=== PATIENT | male | born 1960 | race Caucasian/White ===

== ENCOUNTER 2020-09-29 12:51 | Outpatient (REF) | payer MEDICARE, OTHER, SELFPAY ==
[2020-09-29 14:53] LABS: Free T4 (Free Thyroxine) 0.92 ng/dL (0.71-1.85); Thyroid Stimulating Hormone 2.86 uIU/mL (0.32-4.0)
[2020-10-03 09:47] LABS: Amitriptyline, Urine NEGATIVE ng/mL (<100); Nortriptyline, Urine NEGATIVE ng/mL (<100)
[2020-10-03 20:18] LABS: Beta-2 Glycoprotein IgA <9 SAU (<=20); Beta-2 Glycoprotein IgG <9 SGU (<=20); Beta-2 Glycoprotein IgM <9 SMU (<=20)
== END 2020-09-29 12:52 | disposition home or self-care (01) ==
LOC: HO.LAB 12:51
PROVIDERS: PCP Internal Medicine; Visit Provider Internal Medicine
DX: E78.00 Pure hypercholesterolemia, unspecified (principal)
CPT/HCPCS: 80335; 84439; 84443; 86146

== ENCOUNTER 2020-10-02 12:29 | Outpatient (REF) | payer MEDICARE, OTHER, SELFPAY ==
[2020-10-06 21:13] LABS: Hydroindolacetic Acid,5- 12.2 mg/24 h (<=6.0); Total Volume 800 mL
== END 2020-10-02 12:30 | disposition home or self-care (01) ==
LOC: HO.LNP 12:29
PROVIDERS: Visit Provider Internal Medicine
DX: R35.0 Frequency of micturition (principal); N40.1 Benign prostatic hyperplasia with lower urinary tract symptoms
CPT/HCPCS: 81050; 83497

== ENCOUNTER → 2020-10-11 10:51 | Outpatient (BNVA) | payer MEDICARE, OTHER, SELFPAY | PROVIDERS: PCP Internal Medicine; Visit Provider Urology | DX: Z13.89 Encounter for screening for other disorder (principal) | CPT/HCPCS: Q3014 ==

== ENCOUNTER 2021-05-07 11:03 | Outpatient (REF) | payer MEDICARE, OTHER, SELFPAY ==
[2021-05-07 11:46] LABS: MANUAL DIFF FLAG NO
[2021-05-07 11:54] LABS: Basophils Absolute Auto 0.1 X10*3/uL (0.0-0.2); Basophils Percent Auto 0.5 % (0-2); Eosinophils Absolute Auto 0.1 X10*3/uL (0.0-0.4); Eosinophils Percent Auto 1.3 % (0-4); Hemoglobin 15.9 g/dl (14.0-18.0); Imm Gran Abs Auto 0.04 X10*3/uL (0.00-0.03); Imm Gran Pct Auto 0.4 % (0.0-0.4); Lymphocytes Absolute Auto 1.5 X10*3/uL (1.2-4.9); Lymphocytes Percent Auto 14.9 % (20-40); Mean Corpuscular HGB Conc 34.6 g/dl (31.0-36.0); Mean Corpuscular Hemoglobin 34.3 pg (27.0-33.0); Mean Corpuscular Volume 99.4 fL (80-98); Mean Platelet Volume 9.5 fL (9.4-12.4); Monocytes Absolute Auto 0.9 X10*3/uL (0.1-1.2); Monocytes Percent Auto 8.6 % (2-11); Neutrophils Absolute Auto 7.5 X10*3/uL (2.0-8.3); Neutrophils Percent Auto 74.3 % (45-73); Platelet Count 217 X10*3/uL (160-400); Red Blood Count 4.63 X10*6/uL (4.60-5.80); Red Cell Distribution Width 14.7 % (11.0-16.0); White Blood Count 10.1 X10*3/uL (4.8-10.8)
[2021-05-07 12:23] LABS: Alanine Aminotransferase 14 U/L (0-40); Albumin Level 4.1 g/dL (3.5-5.0); Alkaline Phosphatase 85 U/L (39-117); Anion Gap 12 (12-20); Aspartate Amino Transferase 17 U/L (5-37); Bilirubin Total 0.6 mg/dL (0.0-1.0); Blood Urea Nitrogen 9 mg/dL (9-16); Calcium 9.3 mg/dL (8.4-10.2); Carbon Dioxide 26 mmol/L (22-29); Chloride 109 mmol/L (96-108); Cholesterol 143 mg/dL; Estimated Glomerular Filt Rate > 60; Glucose Random 107 mg/dL (60-115); HDL Cholesterol 70 mg/dL; LDL Cholesterol Calculated 63 mg/dl; Sodium 142 mmol/L (135-145); Total Protein 6.7 g/dL (6.5-8.0); Triglycerides 54 mg/dL
[2021-05-07 12:44] LABS: Free T4 (Free Thyroxine) 0.87 ng/dL (0.71-1.85); Thyroid Stimulating Hormone 2.03 uIU/mL (0.32-4.0)
[2021-05-07 12:48] LABS: Folate 15.3 ng/mL (> or = 4.0); Vitamin B12 1791 pg/mL (200-900)
[2021-05-07 13:14] LABS: Prostate Specific Antigen Scr 3.53 ng/mL (<0.05-4.0)
== END 2021-05-07 11:04 | disposition home or self-care (01) ==
LOC: HO.LAB 11:03
PROVIDERS: PCP Internal Medicine; Visit Provider Internal Medicine
DX: Z12.5 Encounter for screening for malignant neoplasm of prostate (principal); I63.9 Cerebral infarction, unspecified; E78.00 Pure hypercholesterolemia, unspecified; N40.1 Benign prostatic hyperplasia with lower urinary tract symptoms; R35.0 Frequency of micturition
CPT/HCPCS: 36415; 80053; 80061; 82607; 82746; 84153; 84439; 84443; 85025

== ENCOUNTER 2021-06-29 11:27 | Outpatient (REF) | payer MEDICARE, OTHER, SELFPAY ==
--- NOTE | ~2021-06-29 | XR_ITS ---
EXAMINATION: XR CHEST CLINICAL INFORMATION: Shortness of breath COMPARISON: Chest radiographs 05/11/2020, 04/07/2015; CT chest noncontrast 11/30/2019. TECHNIQUE: 2 views of the chest were obtained. FINDINGS: There is patchy airspace opacity and atelectasis anterior lateral right upper lobe superimposed upon upper zone bullous emphysematous changes. There is also disc atelectasis and linear scarring posterior right upper lobe adjacent to oblique fissure. Left lung is clear. The costophrenic sulci are well-defined. No effusion. There is no pneumothorax or pneumomediastinum. The vascularity is normal. The heart is normal in size. The hilar and mediastinal contours are unremarkable. There is mild dextrocurvature thoracic spine. Surgical clips are present base left neck. XR/XR chest 2V IMPRESSION: Patchy airspace opacities and atelectasis anterior lateral right upper lobe and posterior right upper lobe superimposed upon chronic bullous emphysematous changes. No effusion.
== END 2021-06-29 11:28 | disposition home or self-care (01) ==
LOC: HO.HMGCX 11:27
PROVIDERS: PCP Internal Medicine; Visit Provider Hospitalist
DX: Z20.822 Contact with and (suspected) exposure to COVID-19 (principal); R06.02 Shortness of breath
CPT/HCPCS: 71046; U0003; U0005

== ENCOUNTER 2021-07-12 10:59 | Outpatient (REF) | payer MEDICARE, OTHER, SELFPAY ==
--- NOTE | ~2021-07-12 | XR_ITS ---
EXAMINATION: XR HIP, RIGHT CLINICAL INFORMATION: Pain in right hip COMPARISON: None TECHNIQUE: Two views of the right hip. FINDINGS: No acute visible fracture or dislocation. Post fracture deformity of the mid femoral diaphysis. Degenerative changes of the right femoral acetabular joint with joint space narrowing and periarticular osteophyte formation. Joint spaces and alignment are otherwise maintained. Soft tissues are unremarkable. Pelvic phleboliths are noted. XR/XR hip RT min 2V IMPRESSION: 1. No acute visible fracture or dislocation. 2. Post fracture deformity of the mid femoral diaphysis. 3. Degenerative changes of the right femoral acetabular joint.
== END 2021-07-12 11:00 | disposition home or self-care (01) ==
LOC: HO.XRAY 10:59
PROVIDERS: PCP Internal Medicine; Visit Provider Physician Assistant
DX: M25.551 Pain in right hip (principal)
CPT/HCPCS: 73502

== ENCOUNTER 2021-07-19 10:24 | Outpatient (REF) | payer MEDICARE, OTHER, SELFPAY ==
--- NOTE | ~2021-07-19 | XR_ITS ---
EXAMINATION: XR CHEST CLINICAL INFORMATION: Followup pneumonia, lingering cough. COMPARISON: 06/29/2021 TECHNIQUE: 2 views of the chest were obtained. FINDINGS: The right upper lung opacity appears to be decreasing but still remains a significant component. The left lung is comparable to previous. No infiltrate. Minimal left basilar atelectasis. The heart size is within normal limits. Comparable to previous. Hilar regions were also comparable. Mild fullness on the right may be reactive. XR/XR chest 2V IMPRESSION: Improving right upper lung opacity but still significant residual. Continued follow up is recommended. Recommend additional follow up in 2 weeks.
== END 2021-07-19 10:25 | disposition home or self-care (01) ==
LOC: HO.XRAY 10:24
PROVIDERS: PCP Internal Medicine; Visit Provider Physician Assistant
DX: R91.8 Other nonspecific abnormal finding of lung field (principal)
CPT/HCPCS: 71046

== ENCOUNTER 2021-08-09 05:13 | Outpatient (REF) | payer MEDICARE, OTHER, SELFPAY ==
--- NOTE | ~2021-08-09 | XR_ITS ---
EXAMINATION: XR PELVIS CLINICAL INFORMATION: Pain. COMPARISON: None TECHNIQUE: AP view of the pelvis. FINDINGS: There is normal symmetry of bilateral hip joints. No bony erosive changes. No acute fracture or lytic process seen. The soft tissues are normal. Unremarkable AP pelvis exam.. XR/XR pelvis 1-2V IMPRESSION: Unremarkable AP pelvis exam.
== END 2021-08-09 05:14 | disposition home or self-care (01) ==
LOC: HO.HOSX 05:13
PROVIDERS: Visit Provider Physician Assistant
DX: S39.012A Strain of muscle, fascia and tendon of lower back, initial encounter (principal)
CPT/HCPCS: 72170; 99212

== ENCOUNTER 2021-09-20 11:57 | Outpatient (REF) | payer MEDICARE, OTHER, SELFPAY ==
--- NOTE | ~2021-09-20 | XR_ITS ---
EXAMINATION: XR CHEST CLINICAL INFORMATION: Other nonspecific abnormal finding of lung field COMPARISON: Previous chest x-rays most recent June [address] most recent November 2019 TECHNIQUE: 2 views of the chest were obtained. FINDINGS: The cardiac and mediastinal contours are stable. There is interval decrease in size and density of the parenchymal opacity seen in the right upper lobe on June 2021 exams. On the lateral view there is linear chronic scarring or subsegmental atelectasis in the region of posterior segment of the right upper lobe or superior segment of the right lower lobe. This appears unchanged. The left lung is clear. There is no pleural effusion or pneumothorax. There are surgical clips in the left lower neck. Bony structures are unremarkable. XR/XR chest 2V IMPRESSION: Interval decrease in size and density of the parenchymal opacity in the right upper lobe compared to June 2021 chest x-rays. Residual chronic scarring or subsegmental atelectasis in the superior segment right lower lobe/posterior segment right upper lobe seen on the lateral view that is unchanged.
== END 2021-09-20 11:58 | disposition home or self-care (01) ==
LOC: HO.XRAY 11:57
PROVIDERS: PCP Internal Medicine; Visit Provider Physician Assistant
DX: R91.8 Other nonspecific abnormal finding of lung field (principal)
CPT/HCPCS: 71046

== ENCOUNTER 2021-11-26 11:31 | Outpatient (REF) | payer MEDICARE, OTHER, SELFPAY ==
--- NOTE | ~2021-11-26 | XR_ITS ---
EXAMINATION: XR RIBS, RIGHT CLINICAL INFORMATION: Status post fall about 12. Severe right-sided pain. COMPARISON: Chest x-ray 10-09. TECHNIQUE: 3 views of the right ribs were obtained. FINDINGS: There is severe emphysematous changes especially there is a large bullous disease in the right upper lobe and thick scarring in the right upper midlung region with mild loss of right lung volume similar to previous study. The left lung is expanded and clear. The heart size and pulmonary vascularity is normal. There are surgical lat[place] in the left neck from previous intervention. Multiple views of right ribs reveal nondisplaced fracture right lateral ninth and 10th rib with callus formation likely nonacute or healing fracture. XR/XR ribs RT min 3V w CXR1V IMPRESSION: Nonacute healing fracture right lateral 9th and 10th ribs where marker has been placed. Emphysematous lungs with large bullous changes in right upper lobe with thick parenchymal scarring and right midlung and loss of right lung volume similar to previous study 10/08/2021. Results were discussed by phone with referring physician at 11:50 AM.
== END 2021-11-26 11:32 | disposition home or self-care (01) ==
LOC: HO.HMGCX 11:31
PROVIDERS: Visit Provider Internal Medicine
DX: S20.219A Contusion of unspecified front wall of thorax, initial encounter (principal)
CPT/HCPCS: 71101

== ENCOUNTER 2022-06-17 10:49 | Outpatient (REF) | payer MEDICARE, OTHER, SELFPAY ==
[2022-06-17 14:09] LABS: MANUAL DIFF FLAG NO
[2022-06-17 14:14] LABS: Basophils Absolute Auto 0.1 X10*3/uL (0.0-0.2); Basophils Percent Auto 0.6 % (0-2); Eosinophils Absolute Auto 0.2 X10*3/uL (0.0-0.4); Eosinophils Percent Auto 2.3 % (0-4); Hematocrit 48.2 % (42.0-52.0); Hemoglobin 16.7 g/dl (14.0-18.0); Imm Gran Abs Auto 0.02 X10*3/uL (0.00-0.03); Imm Gran Pct Auto 0.2 % (0.0-0.4); Lymphocytes Absolute Auto 1.7 X10*3/uL (1.2-4.9); Lymphocytes Percent Auto 17.3 % (20-40); Mean Corpuscular HGB Conc 34.6 g/dl (31.0-36.0); Mean Corpuscular Volume 98.2 fL (80.0-98.0); Mean Platelet Volume 10.4 fL (9.4-12.4); Monocytes Percent Auto 10.2 % (2-11); Neutrophils Absolute Auto 6.6 x10*3/uL (2.0-8.3); Neutrophils Percent Auto 69.4 % (45-73); Platelet Count 248 X10*3/uL (160-400); Red Blood Count 4.91 X10*6/uL (4.60-5.80); Red Cell Distribution Width 14.7 % (11.0-16.0); White Blood Count 9.5 X10*3/uL (4.8-10.8)
[2022-06-17 14:34] LABS: Alanine Aminotransferase 19 U/L (0-40); Albumin Level 4.2 g/dL (3.5-5.0); Alkaline Phosphatase 92 U/L (39-117); Anion Gap 16 (12-20); Aspartate Amino Transferase 15 U/L (5-37); Bilirubin Total 0.7 mg/dL (0.0-1.0); Blood Urea Nitrogen 8 mg/dL (9-16); Calcium 9.4 mg/dL (8.4-10.2); Carbon Dioxide 26 mmol/L (22-29); Chloride 109 mmol/L (96-108); Cholesterol 145 mg/dL; Estimated Glomerular Filt Rate > 60; Glucose Random 111 mg/dL (60-115); HDL Cholesterol 63 mg/dL; LDL Cholesterol Calculated 70 mg/dl; Potassium 4.7 mmol/L (3.3-5.1); Sodium 146 mmol/L (135-145); Total Protein 6.9 g/dL (6.5-8.0); Triglycerides 64 mg/dL
[2022-06-17 14:47] LABS: Free T4 (Free Thyroxine) 1.05 ng/dL (0.71-1.85); Prostate Specific Antigen Scr 2.86 ng/mL (<0.05-4.0); Thyroid Stimulating Hormone 2.58 uIU/mL (0.32-4.0)
[2022-06-17 15:15] LABS: Folate 13.9 ng/mL (> or = 4.0); Vitamin B12 350 pg/mL (200-900)
== END 2022-06-17 10:50 | disposition home or self-care (01) ==
LOC: HO.HMGCLDS 10:49
PROVIDERS: PCP Internal Medicine; Visit Provider Internal Medicine
DX: Z12.5 Encounter for screening for malignant neoplasm of prostate (principal); E78.00 Pure hypercholesterolemia, unspecified
CPT/HCPCS: 36415; 80053; 80061; 82607; 82746; 84153; 84439; 84443; 85025

== ENCOUNTER 2022-06-21 13:02 | Outpatient (REF) | payer MEDICARE, OTHER, SELFPAY ==
--- NOTE | ~2022-06-21 | XR_ITS ---
EXAMINATION: XR KNEES, BILATERAL XR KNEE, LEFT CLINICAL INFORMATION: Painful right knee, pain left knee. COMPARISON: X-rays of the knees June 2018 and left knee May 2018. TECHNIQUE: Upright AP view of both knees. Lateral and patella view of left knee. FINDINGS: Left Knee: There is chondrocalcinosis. Bones joints and soft tissues otherwise normal without effusion. Right Knee - limited AP upright: Right total knee arthroplasty with components in usual position without surrounding lucency or fracture. XR/XR knee standing BI IMPRESSION: LEFT KNEE: Chondrocalcinosis unchanged. RIGHT KNEE: Right total knee arthroplasty without complication by x-ray.
--- NOTE | ~2022-06-21 | XR_ITS ---
EXAMINATION: XR KNEES, BILATERAL XR KNEE, LEFT CLINICAL INFORMATION: Painful right knee, pain left knee. COMPARISON: X-rays of the knees June 2018 and left knee May 2018. TECHNIQUE: Upright AP view of both knees. Lateral and patella view of left knee. FINDINGS: Left Knee: There is chondrocalcinosis. Bones joints and soft tissues otherwise normal without effusion. Right Knee - limited AP upright: Right total knee arthroplasty with components in usual position without surrounding lucency or fracture. XR/XR knee LT 2V IMPRESSION: LEFT KNEE: Chondrocalcinosis unchanged. RIGHT KNEE: Right total knee arthroplasty without complication by x-ray.
== END 2022-06-21 13:03 | disposition home or self-care (01) ==
LOC: HO.HOSX 13:02
PROVIDERS: Visit Provider Physician Assistant
DX: M17.12 Unilateral primary osteoarthritis, left knee (principal)
CPT/HCPCS: 20610; 73560; 73565; 99212; J1040

== ENCOUNTER 2022-09-09 13:21 | Outpatient (REF) | payer MEDICARE, SELFPAY ==
--- NOTE | ~2022-09-09 | XR_ITS ---
EXAMINATION: RIGHT WRIST WITH SCAPHOID CLINICAL INFORMATION: Pain in wrist. COMPARISON: None TECHNIQUE: 4 views. FINDINGS: There is no visible acute fracture, dislocation or subluxation. The joint spaces are maintained normal. There is calcification of triangular fibrocartilage as well as calcification of the dorsal capsule. There is mild dorsal soft tissue swelling. Focal lucencies are seen along the scaphoid and capitate bone and likely osteopenia. XR/XR wrist RT w scaphoid IMPRESSION: 1. Chondrocalcinosis of triangular fibrocartilage and dorsal capsule. There is mild dorsal soft tissue swelling. 2. No visible acute fracture or dislocation seen. 3. Focal lucencies along the scaphoid and capitate bone likely osteopenia.
== END 2022-09-09 13:22 | disposition home or self-care (01) ==
LOC: HO.HMGCX 13:21
PROVIDERS: PCP Internal Medicine; Visit Provider Nurse Practitioner Family
DX: M25.531 Pain in right wrist (principal)
CPT/HCPCS: 73110

== ENCOUNTER 2022-11-21 15:46 | Outpatient (REF) | payer MEDICARE, MEDICAID, SELFPAY ==
--- NOTE | ~2022-11-21 | XR_ITS ---
EXAMINATION: XR RIBS, LEFT CLINICAL INFORMATION: Multiple fractures COMPARISON: Prior study 09/20/2021 TECHNIQUE: Chest frontal, 3 oblique views left rib series. FINDINGS: RIBS: There is subtle cortical irregularity in the lateral aspect of the left seventh rib suggesting an undisplaced fracture indeterminant age. LUNGS AND JAIR: There is no pneumothorax. There is a platelike atelectasis projecting over the right middle lung zone, this is chronic or recurrent. No pleural effusion. PLEURA: Normal. Costophrenic angles are sharp, no pneumothorax. HEART: The heart is normal in size. MEDIASTINUM: The mediastinum is within normal limits.. XR/XR ribs LT min 3V w CXR1V IMPRESSION: * Nondisplaced fracture of the lateral aspect of the left seventh rib indeterminant age. Please correlate with area of tenderness. * Platelike atelectasis projecting over the right middle lung zone, this is chronic or recurrent. * No pneumothorax.
== END 2022-11-21 15:47 | disposition home or self-care (01) ==
LOC: HO.HMGCX 15:46
PROVIDERS: PCP Internal Medicine; Visit Provider Nurse Practitioner Family
DX: S22.42XA Multiple fractures of ribs, left side, initial encounter for closed fracture (principal)
CPT/HCPCS: 71101

== ENCOUNTER 2022-11-21 16:52 | Emergency (ER) | payer MEDICARE, MEDICAID, SELFPAY ==
--- NOTE | 2022-11-21 | ECG_ITS ---
Test Reason : FALL Blood Pressure : / mmHG Vent. Rate : 088 BPM Atrial Rate : 088 BPM P-R Int : 154 ms QRS Dur : 082 ms QT Int : 384 ms P-R-T Axes : 060 009 049 degrees QTc Int : 464 ms Normal sinus rhythm Normal ECG When compared with ECG of 21-NOV-2022 17:15, Questionable change in QRS axis Criteria for Inferior infarct are no longer Present T wave inversion no longer evident in Lateral leads Referred By: Hannah Booth Electronically Signed By:SHREE AMADOR MD
--- NOTE | 2022-11-21 | ECG_ITS ---
Test Reason : FALL Blood Pressure : / mmHG Vent. Rate : 085 BPM Atrial Rate : 085 BPM P-R Int : 156 ms QRS Dur : 080 ms QT Int : 376 ms P-R-T Axes : 114 186 146 degrees QTc Int : 447 ms Suspect limb lead reversal, interpretation assumes no reversal Normal sinus rhythm Lateral infarct , age undetermined Inferior infarct , age undetermined Abnormal ECG When compared with ECG of 11-MAY-2020 11:35, Significant changes have occurred Referred By: Generic ED Physician Electronically Signed By:Vince Chaidez
--- NOTE | ~2022-11-21 | XR_ITS ---
EXAMINATION: XR CHEST CLINICAL INFORMATION: Evaluate for rib fracture. COMPARISON: Chest radiograph 11/21/2022 at 3:56 PM and 11/26/2021. TECHNIQUE: Frontal view of the chest was obtained. FINDINGS: Stable appearance of the cardiomediastinal silhouette. Unchanged platelike and irregular opacities in the right upper/mid lung and left lower lung. No new focal airspace opacity. No pleural effusion or pneumothorax. Redemonstration of left lower cervical surgical clips per Chronic rib fracture in the right ninth rib, stable since 2021. Age indeterminate left seventh rib fracture is better seen on radiograph from earlier today. XR/XR chest 1V IMPRESSION: 1. Age-indeterminate left seventh rib fracture is better seen on radiograph from earlier today. 2. Chronic right ninth rib fracture. 3. No acute cardiopulmonary findings.
[2022-11-21 16:54] VITALS: BP 94/64; PULSE 93; RESP 18; TEMP 36.7; O2SAT 97; BMI 31.9
[2022-11-21 17:33] LABS: MANUAL DIFF FLAG NO
[2022-11-21 17:34] LABS: Basophils Absolute Auto 0.1 X10*3/uL (0.0-0.2); Basophils Percent Auto 0.7 % (0-2); Eosinophils Absolute Auto 0.2 X10*3/uL (0.0-0.4); Eosinophils Percent Auto 1.7 % (0-4); Hematocrit 44.3 % (42.0-52.0); Hemoglobin 15.6 g/dl (14.0-18.0); Imm Gran Abs Auto 0.02 X10*3/uL (0.00-0.03); Imm Gran Pct Auto 0.2 % (0.0-0.4); Lymphocytes Absolute Auto 1.7 X10*3/uL (1.2-4.9); Lymphocytes Percent Auto 19.4 % (20-40); Mean Corpuscular HGB Conc 35.2 g/dl (31.0-36.0); Mean Corpuscular Hemoglobin 34.3 pg (27.0-33.0); Mean Corpuscular Volume 97.4 fL (80.0-98.0); Mean Platelet Volume 9.4 fL (9.4-12.4); Monocytes Absolute Auto 0.8 X10*3/uL (0.1-1.2); Monocytes Percent Auto 9.2 % (2-11); Neutrophils Absolute Auto 6.1 x10*3/uL (2.0-8.3); Neutrophils Percent Auto 68.8 % (45-73); Platelet Count 201 X10*3/uL (160-400); Red Blood Count 4.55 X10*6/uL (4.60-5.80); Red Cell Distribution Width 14.3 % (11.0-16.0); White Blood Count 8.8 X10*3/uL (4.8-10.8)
[2022-11-21 17:46] LABS: Alanine Aminotransferase 12 U/L (0-40); Albumin Level 3.7 g/dL (3.5-5.0); Alkaline Phosphatase 95 U/L (39-117); Anion Gap 15 (12-20); Aspartate Amino Transferase 10 U/L (5-37); Bilirubin Total 0.5 mg/dL (0.0-1.0); Blood Urea Nitrogen 9 mg/dL (9-16); Calcium 8.6 mg/dL (8.4-10.2); Carbon Dioxide 22 mmol/L (22-29); Chloride 109 mmol/L (96-108); Creatinine Clr Calc Pharmacy 107.1; Estimated Glomerular Filt Rate > 60; Glucose Fasting 148 mg/dL (60-99); Potassium 4.1 mmol/L (3.3-5.1); Sodium 142 mmol/L (135-145); Total Protein 5.8 g/dL (6.5-8.0)
--- NOTE | 2022-11-21 21:39 | ED.GENADULT ---
HPI - General Adult General Chief complaint: Abdominal Pain Stated complaint: rib pain, ?internal bleeding sent form urgent care Time Seen by Provider: 11/21/22 21:14 Source: patient Mode of arrival: ambulatory History of Present Illness HPI narrative: 62-year-old male who denies consuming alcohol the time of his fall 2 weeks ago when he fell in the tub without head strike or loss of consciousness. Related Data Home Medications Medication Instructions Recorded Confirmed aspirin 81 mg tablet,delayed 81 mg PO DAILY 09/21/20 11/21/22 release (Adult Aspirin Regimen) gabapentin 300 mg capsule 300 mg PO TID 09/21/20 11/21/22 apixaban 2.5 mg tablet (Eliquis) 2.5 mg PO BID 09/09/22 11/21/22 Previous Rx's Medication Instructions Recorded shower chair #1 ea 04/25/21 fluticasone 250 mcg-salmeterol 50 1 inh inhalation BID 30 days #60 ea 12/20/21 mcg/dose blistr powdr for inhalation (Wixela Inhub) nicotine (polacrilex) 2 mg gum 2 mg buccal Q4-8H PRN nicotine 01/07/22 cravings #50 ea miscellaneous medical supply 1 ea miscellaneous QID PRN 01/10/22 shortness of breath or wheezing 12 months #1 ea omeprazole 20 mg capsule,delayed 20 mg PO BID 90 days #180 caps 04/19/22 release tamsulosin 0.4 mg capsule 0.4 mg PO BEDTIME 90 days #90 caps 05/17/22 miconazole nitrate 2 % topical 1 appl topical DAILY #71 grams 06/12/22 powder (Zeasorb AF) nystatin 100,000 unit/gram topical 1 appl topical TID 30 days #30 06/12/22 ointment grams atorvastatin 80 mg tablet 80 mg PO BEDTIME 90 days #90 tabs 07/12/22 fluticasone propionate 50 2 spray intranasal DAILY #3 ea 10/01/22 mcg/actuation nasal spray,suspension alprazolam 0.25 mg tablet 0.25 mg PO BEDTIME PRN anxiety #20 10/25/22 tabs albuterol sulfate 2.5 mg/3 mL 2.5 mg (3 mL) inhalation QID PRN 11/12/22 (0.083 %) solution for nebulization shortness of breath or wheezing 30 days #180 mL albuterol sulfate 90 mcg/actuation 2 puff PO Q6H PRN bronchospasm 11/12/22 aerosol inhaler #8.5 grams Allergies Allergy/AdvReac Type Severity Reaction Status Date / Time azithromycin [AZITHROMYCIN] Allergy Unknown HIVES Verified 11/21/22 16:54 clarithromycin [From Biaxin] Allergy Unknown Unknown Verified 11/21/22 16:54 dextromethorphan Allergy Unknown HIVES Verified 11/21/22 16:54 [From NYQUIL] divalproex sodium [Depakote] Allergy Unknown Unknown Verified 11/21/22 16:54 doxycycline Allergy Unknown unknown Verified 11/21/22 16:54 doxylamine [From NYQUIL] Allergy Unknown HIVES Verified 11/21/22 16:54 morphine [MORPHINE] Allergy Unknown TACHYCARDIA Verified 11/21/22 16:54 pseudoephedrine Allergy Unknown HIVES Verified 11/21/22 16:54 [From DAYQUIL SINUS PRESSURE/PAIN] rosuvastatin Allergy Unknown sob Verified 11/21/22 16:54 Review of Systems Review of Systems: Pertinent positives and negatives as stated in HPI COUNTS INCLUDE 234 BEDS AT THE [facility] Past Medical History Source: nursing notes reviewed Medical History Annual physical exam Annual physical exam Anxiety Back strain BPH (benign prostatic hyperplasia) Brain aneurysm Carpal tunnel syndrome Contusion of chest COPD (chronic obstructive pulmonary disease) CVA (cerebral vascular accident) Femoral fracture GERD (gastroesophageal reflux disease) Hypercholesterolemia Impaired glucose tolerance Insomnia Left subclavian artery occlusion Osteoarthritis of right hip Overweight (BMI 25.0-29.9) Pes anserinus bursitis of left knee Polysubstance abuse Pulmonary nodule Right hip pain Right middle lobe pulmonary infiltrate Seizure disorder Sinus congestion SOB (shortness of breath) Tinea cruris Upper respiratory tract infection Urgency of micturition Vitamin B12 deficiency Vitamin D deficiency Vocal cord polyp Surgical History History of knee replacement procedure of right knee History of orthopedic surgery History of surgery Stenosis of subclavian bypass Family History Family History Father CAD (coronary artery disease) Kidney malignancy Mother Myocardial infarction Social History Social History Housing: Other Housing Other:: Trailer Alcohol intake: current Alcohol intake frequency: 0-2 drinks per day Alcohol type: beer Patient Tobacco Use Status: Current everyday Tobacco user Tobacco use type: Cigarette Cigarettes Per Day: 6 e-Cigarette/Vaping Use: Never Used Second Hand Smoke Exposure: No Advance Directives: No Advance Directives Information Provided: No service: No Current occupational status: unemployed Cognitive needs: No Hearing needs: No Vision needs: Yes Physical Exam ED Vital Signs: Vital Signs - 24 hr 11/21/22 16:54 Temperature 98.1 F Pulse Rate 93 Respiratory Rate 18 Blood Pressure 94/64 Pulse Oximetry 97 Oxygen Delivery Method Room Air BMI result Body Mass Index 31.9 VITAL SIGNS: Reviewed. GENERAL: Well developed, well nourished, in no acute distress. HEAD: Normocephalic/atraumatic EYES: PERRLA, EOMI EARS: Ext canals without abnormality OROPHARYNX: no oral lesions noted, posterior pharynx clear LUNGS: Normal breath sounds. No adventitious sounds or accessory muscle use. SpO2<97>; CHEST WALL: Patient with point tenderness at the mid axillary 7th rib area without crepitus noted CARDIOVASCULAR: Regular rate and rhythm without noted murmurs, no JVD or lower extremity edema. ABDOMEN: Soft, non-tender, non-distended with bowel sounds. MUSCULOSKELETAL: No tenderness, deformities, or effusions noted on gross inspection. EXTREMITIES: No cyanosis, clubbing or edema. SKIN: Inspection of the skin reveals no rashes NEUROLOGIC: Alert and oriented x 4. Strength and sensation to light touch were grossly intact x 4, no facial asymmetry, no pronator drift. Medical Decision Making Medical Decision Making [facility] Narrative: 62-year-old male with history and clinical presentation most consistent after review of all investigations of a a left 7th rib fracture, he is not tachycardic nor is he tachypneic and he is oxygenating 97% on room air. Patient was provided with combination analgesics, lidocaine patch will be discharged home in stable condition with instructions to follow-up with his primary care provider. Patient was also started on incentive spirometry and given training at the bedside. Differential Diagnosis Differential Diagnoses: The differential diagnosis associated with the presentation includes Please see the discussion above Lab Data [facility] Lab Attestation statement: I reviewed the patient's lab results. Please see the discussion above 11/21/22 17:28 02/02/23 17:28 Labs: Lab Results 11/21/22 11/21/22 Range/Units 17:28 17:28 WBC 8.8 (4.8-10.8) X10*3/uL RBC 4.55 L (4.60-5.80) X10*6/uL Hgb 15.6 (14.0-18.0) g/dl Hct 44.3 (42.0-52.0) % MCV 97.4 (80.0-98.0) fL MCH 34.3 H (27.0-33.0) pg MCHC 35.2 (31.0-36.0) g/dl RDW 14.3 (11.0-16.0) % Plt Count 201 (160-400) X10*3/uL MPV 9.4 (9.4-12.4) fL Immature Gran % (Auto) 0.2 (0.0-0.4) % Neut % (Auto) 68.8 (45-73) % Lymph % (Auto) 19.4 L (20-40) % [place] % (Auto) 9.2 (2-11) % Eos % (Auto) 1.7 (0-4) % Baso % (Auto) 0.7 (0-2) % Lymph # (Auto) 1.7 (1.2-4.9) X10*3/uL [place] # (Auto) 0.8 (0.1-1.2) X10*3/uL Eos # (Auto) 0.2 (0.0-0.4) X10*3/uL Baso # (Auto) 0.1 (0.0-0.2) X10*3/uL Abs Immat Gran (auto) 0.02 (0.00-0.03) X10*3/uL Absolute Neuts (auto) 6.1 (2.0-8.3) x10*3/uL Absolute Nucleated RBC 0.000 (0.0-0.012) X10*3/uL Nucleated RBC % (auto) 0.0 (0.0-0.2) /100WBC Sodium 142 (135-145) mmol/L Potassium 4.1 (3.3-5.1) mmol/L Chloride 109 H (96-108) mmol/L Carbon Dioxide 22 (22-29) mmol/L Anion Gap 15 (12-20) BUN 9 (9-16) mg/dL Creatinine 0.78 (0.5-1.4) mg/dL Estim Creat Clear Calc 107.1 Estimated GFR > 60 Fasting Glucose 148 H (60-99) mg/dL Calcium 8.6 D (8.4-10.2) mg/dL Total Bilirubin 0.5 (0.0-1.0) mg/dL AST 10 (5-37) U/L ALT 12 (0-40) U/L Alkaline Phosphatase 95 (39-117) U/L Total Protein 5.8 L (6.5-8.0) g/dL Albumin 3.7 (3.5-5.0) g/dL Radiology Impression Radiologist Impression: My interpretation is in agreement with radiology's impression of the imaging study. External Record Review External record reviewed: Outpatient record and Prior outpatient labs Chronic Conditions Patient?s care impacted by: Hypertension Discharge Plan Discharge Clinical Impression: Rib fracture Patient Disposition: Home, Self-Care Instructions: Rib Fracture (ED), How to Use an Incentive Spirometer (ED) Additional Instructions: Tylenol 1000mg, orally, every 6hrs as needed for pain. Do not exceed 4000 mg within 24 hours. Lidocaine patch, apply to area of maximal tenderness as directed on the outside packaging. Please use the incentive spirometer every 2-4 hours with at least 8-10 breaths Follow-up with your primary care provider by calling the office tomorrow morning. Return to the ER for worsening symptoms. Prescriptions: No Action (DME) shower chair See Rx Instructions .Route .MEDSUPPLY Qty: 1 0RF Rx Instructions: As directed fluticasone propion-salmeterol [Wixela Inhub] 250-50 mcg/dose blister with device 1 inh inhalation BID 30 Days Qty: 60 11RF nicotine (polacrilex) 2 mg gum 2 mg buccal Q4-8H PRN (Reason: nicotine cravings) Qty: 50 0RF miscellaneous medical supply Kit 1 ea miscellaneous QID PRN (Reason: shortness of breath or wheezing) 360 Days Qty: 1 2RF Rx Instructions: 1 kit for nebulizer, mouthpiece, tubing & filter for 12 months to use QID PRN for shortness of breath or wheezing omeprazole 20 mg capsule,delayed release(DR/EC) 20 mg PO BID 90 Days Qty: 180 3RF tamsulosin 0.4 mg capsule 0.4 mg PO BEDTIME 90 Days Qty: 90 3RF atorvastatin 80 mg tablet 80 mg PO BEDTIME 90 Days Qty: 90 2RF fluticasone propionate 50 mcg/actuation spray,suspension 2 spray intranasal DAILY Qty: 3 3RF Rx Instructions: administer into each nostril alprazolam 0.25 mg tablet 0.25 mg PO BEDTIME PRN (Reason: anxiety) Qty: 20 2RF albuterol sulfate 90 mcg/actuation HFA aerosol inhaler 2 puff PO Q6H PRN (Reason: bronchospasm) Qty: 8.5 0RF albuterol sulfate 2.5 mg /3 mL (0.083 %) solution for nebulization 2.5 mg inhalation QID PRN (Reason: shortness of breath or wheezing) 30 Days Qty: 180 1RF gabapentin 300 mg capsule 300 mg PO TID aspirin [Adult Aspirin Regimen] 81 mg tablet,delayed release (DR/EC) 81 mg PO DAILY nystatin 100,000 unit/gram ointment 1 appl topical TID 30 Days Qty: 30 0RF Zeasorb AF 2 % powder 1 appl topical DAILY Qty: 71 0RF Eliquis 2.5 mg tablet 2.5 mg PO BID Referrals: Po,Zuri Jenkins MD [Primary Care Provider] -
[2022-11-21] MEDS: Acetaminophen 325 MG TABLET 975 MG PO (21:59)
[2022-11-21] MEDS: Lidocaine 4 % Patch ADH..PATCH 1 PATCH TRANSDERMA (22:00)
== END 2022-11-21 22:05 | disposition home or self-care (01) ==
PROVIDERS: Emergency Provider Student in an Organized Health Care Education/Training Program; PCP Internal Medicine
DX: S22.43XA Multiple fractures of ribs, bilateral, initial encounter for closed fracture (principal); W18.2XXA Fall in (into) shower or empty bathtub, initial encounter; Z91.81 History of falling; Y93.E1 Activity, personal bathing and showering; Y92.031 Bathroom in apartment as the place of occurrence of the external cause; Y99.9 Unspecified external cause status
CPT/HCPCS: 36415; 71045; 80053; 85025; 93005; 94010; 99283

== ENCOUNTER 2023-01-28 12:13 | Outpatient (REF) | payer MEDICARE, MEDICAID, SELFPAY ==
--- NOTE | ~2023-01-28 | XR_ITS ---
EXAMINATION: XR KNEE, RIGHT CLINICAL INFORMATION: Pain. COMPARISON: Radiographs dated 06/21/2022. TECHNIQUE: AP and lateral views of the right knee. FINDINGS: Prosthetic components of the right total knee arthroplasty are appropriately aligned without periprosthetic fracture or lucency. No component migration. No joint effusion. XR/XR knee RT 2V IMPRESSION: Appropriate alignment of the right total knee arthroplasty without evidence of complications.
== END 2023-01-28 12:14 | disposition home or self-care (01) ==
LOC: HO.XRAY 12:13
PROVIDERS: PCP Internal Medicine; Visit Provider Internal Medicine
DX: M79.651 Pain in right thigh (principal)
CPT/HCPCS: 73560

== ENCOUNTER 2023-02-07 14:14 | Outpatient (REF) | payer MEDICARE, MEDICAID, SELFPAY ==
--- NOTE | ~2023-02-07 | XR_ITS ---
EXAMINATION: XR HIP, RIGHT CLINICAL INFORMATION: Pain in the right thigh COMPARISON: None available. TECHNIQUE: Two views of the right hip. FINDINGS: No fracture or dislocation. Mild narrowing of the joint space with sclerosis. The visualized right pelvis is intact. Partially visualized femoral diaphyseal healed fracture. XR/XR hip RT min 2V IMPRESSION: Mild degenerative change of the right hip.
== END 2023-02-07 14:15 | disposition home or self-care (01) ==
LOC: HO.XRAY 14:14
PROVIDERS: PCP Internal Medicine; Visit Provider Internal Medicine
DX: M79.651 Pain in right thigh (principal)
CPT/HCPCS: 73502

== ENCOUNTER 2023-02-24 11:00 | Outpatient (REF) | payer MEDICARE, MEDICAID, SELFPAY ==
--- NOTE | ~2023-02-24 | XR_ITS ---
EXAMINATION: RIGHT KNEE RADIOGRAPH CLINICAL INFORMATION: Pain COMPARISON: Right knee x-rays 01/28/2023 TECHNIQUE: Single patellar sunrise view of the right knee was obtained. FINDINGS: Prosthetic components appear well aligned on this single view. There is no gross patellar fracture. There are hypertrophic changes of the patella noted with a decreased patellofemoral joint space. XR/XR knee RT 1V IMPRESSION: Prosthetic components appear well aligned on this single view.
== END 2023-02-24 11:01 | disposition home or self-care (01) ==
LOC: HO.HOSX 11:00
PROVIDERS: PCP Internal Medicine; Visit Provider Physician Assistant
DX: S76.011A Strain of muscle, fascia and tendon of right hip, initial encounter (principal); M25.561 Pain in right knee
CPT/HCPCS: 73560; 99212

== ENCOUNTER 2023-03-20 14:00 | Outpatient (RCR) | payer MEDICARE, MEDICAID, SELFPAY ==
--- NOTE | 2023-02-21 13:52 | MHC.PT.EP ---
[facility] [place] Office [place] Office [place] Office [address] Laura Odell [address] [phone] F: [phone] F: [phone] F: [phone] F: [phone] Physical Therapy Plan of Care Date of Evaluation: Date of Surgery: n/a Diagnosis: pain in R thigh Assessment: Patient is a 62 year old male presenting to PT with complaints of pain in his R thigh. Pt reports onset of pain began about 11 weeks ago due to getting pulled by his dog who was on leash. He presents today with impairments in pain, R hip ROM, gait, strength. Pt's current occupation is disabled, with baseline physical activities including ambulating, ADLs, stair negotiation. 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 Clinical presentation today is most consistent with signs and sx associated with possible muscle strain and pt will benefit from skilled PT 2 week x 4 weeks to address the following problems and impairments noted upon evaluation: pain, R hip ROM, gait, strength. These problems limit the patient with the following functional activities: ambulating, ADLs, stair negotiation. The prescribed treatment plan of care is medically necessary. Co-morbidities of hx brain aneurysm, hx CVA, hx polysubstance abuse, seizure disorder, hx R knee replacement 8 years ago, shattered R femur twice, on blood thinners (eliquis) were identified and taken into considerations of plan of care. Pt was educated on HEP, role of PT, prognosis, POC. Frequency and Duration: The patient will be seen 2 x week x 4 weeks Short Term Goals: Pt will demonstrate R hip flexor strength at least 3 /5 in 2 weeks. Pt will demonstrate ability to ambulate with min to no antalgia with cane in 2 weeks. Pt will report improved pain to 5/10 or better in 2 weeks. 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 Pt will demonstrate ability to ambulate community distances in 4 weeks and no AD for return to PLOF. Pt will demonstrate ability to complete all ADLs with min to no limitation in 4 weeks for return to PLOF. Treatment Plan: Modalities to reduce pain, spasms and effusion. Manual therapy to restore motion and function. Therapeutic exercise to improve strength and flexibility. Neuromuscular re-education for posture and balance. Therapeutic activities to return to functional activities of daily living. Electronically signed by: Hanna Hannon, PT, DPT, ATC Please sign and return to therapist. Thank you for your referral.
--- NOTE | 2023-03-20 14:48 | MHC.PT.DC ---
[facility] [place] Office [place] Office [place] Office [address] Laura Odell [address] [phone] F: [phone] F: [phone] F: [phone] F: [phone] Physical Therapy Discharge Report Diagnosis: pain in R thigh Date of Surgery: n/a Date of Evaluation: 02/21/23 Date of Discharge: 03/20/23 Treatments to Date: 8 Cancellations to Date: 0 No Shows to Date: 0 Discharge Status: Independent with HEP Recommend MD Follow-up Discharge Summary: 03/20/2023: Pt continues to have pain. He has made some improvements with this since start of care but at this point is no longer appearing to make any significant progress. He admits he is doing things he probably shouldn't. He has made minimal progress towards his functional goals due to continued high pain levels. We have maximized benefits of PT at this time and therefore pt to be d/c. Advise him to continue with his HEP as it has provided some relief. If his pain continues recommend following up with MD. Pt in agreement with plan and d/c today. Electronically signed by: Hanna Hannon, PT, DPT, ATC Please sign and return to therapist. Thank you for your referral.
== END 2023-03-20 14:48 | disposition home or self-care (01) ==
LOC: HO.PTCHIC 14:00
PROVIDERS: PCP Internal Medicine; Visit Provider Internal Medicine
DX: M79.651 Pain in right thigh (principal)
CPT/HCPCS: 97110; 97162

== ENCOUNTER 2023-05-12 13:07 | Outpatient (AMB) | payer MEDICARE, MEDICAID, SELFPAY ==
--- NOTE | 2023-05-12 13:16 | MHC.OFFVIS ---
Intake Vital Signs 05/12/23 13:17 Height 5 ft 8 in Weight 193 lb BMI 29.3 Intake Visit Reasons: Newprob-RT hip pain-Looking to get an injection. Intake Note: Stas a 63 year old male who presents today for a follow up of right hip pain. Patient reports he tried PT but this made his pain worse as well as at home exercises. Requesting an injection. Constant pain that gets worse with walking. His pain will radiate down his leg. Finds some relief with pain medication and Tylenol. Allergies azithromycin [AZITHROMYCIN] Allergy (Unknown, Verified 04/25/23 13:55) HIVES clarithromycin [From Biaxin] Allergy (Unknown, Verified 04/25/23 13:55) Unknown dextromethorphan [From NYQUIL] Allergy (Unknown, Verified 04/25/23 13:55) HIVES divalproex sodium [Depakote] Allergy (Unknown, Verified 04/25/23 13:55) Unknown doxycycline Allergy (Unknown, Verified 04/25/23 13:55) unknown doxylamine [From NYQUIL] Allergy (Unknown, Verified 04/25/23 13:55) HIVES morphine [MORPHINE] Allergy (Unknown, Verified 04/25/23 13:55) TACHYCARDIA pseudoephedrine [From DAYQUIL SINUS PRESSURE/PAIN] Allergy (Unknown, Verified 04/25/23 13:55) HIVES rosuvastatin Allergy (Unknown, Verified 04/25/23 13:55) sob HPI Newprob-RT hip pain-Looking to get an injection. HPI Details 63-year-old male who presents to the office today for evaluation of right hip pain. He states he has pain in his right hip which radiates down to his leg. His pain is aggravated with ambulation. He had undergone physical therapy and home exercises in the past which aggravated his pain. He finds mild relief with his pain medication and Tylenol. He was seen by Dr. Feldman who referred him to our office to get an injection in his right hip. [facility] Medical History Annual physical exam Annual physical exam Anxiety Back strain BPH (benign prostatic hyperplasia) Brain aneurysm Carpal tunnel syndrome Contusion of chest COPD (chronic obstructive pulmonary disease) CVA (cerebral vascular accident) Femoral fracture GERD (gastroesophageal reflux disease) Hypercholesterolemia Impaired glucose tolerance Insomnia Left subclavian artery occlusion Osteoarthritis of right hip Overweight (BMI 25.0-29.9) Pes anserinus bursitis of left knee Polysubstance abuse Pulmonary nodule Rib fractures Right hip pain Right middle lobe pulmonary infiltrate Seizure disorder Sinus congestion SOB (shortness of breath) Tinea cruris Upper respiratory tract infection Urgency of micturition Vitamin B12 deficiency Vitamin D deficiency Vocal cord polyp Surgical History History of knee replacement procedure of right knee History of orthopedic surgery History of surgery Stenosis of subclavian bypass Family History Father CAD (coronary artery disease) Kidney malignancy Mother Myocardial infarction Brother Prostate cancer Social History Housing: Other Housing Other:: Trailer Alcohol intake: current Alcohol intake frequency: 0-2 drinks per day Alcohol type: beer Patient Tobacco Use Status: Current everyday Tobacco user Tobacco use type: Cigarette Cigarettes Per Day: 6 Years Smoked: not ready to stop 12/2022 e-Cigarette/Vaping Use: Never Used Second Hand Smoke Exposure: No service: No Current occupational status: unemployed Cognitive needs: No Hearing needs: No Vision needs: Yes Review of Systems Const All systems reviewed & are unremarkable except as noted in HPI and below Physical Exam Vital Signs: BMI result Body Mass Index 29.3 Extrem Other: Right hip: Normal to inspection. No pain with ROM of the hip. Pain along the greater trochanter. No pain with hip flexion or abduction. Negative tenderness along the SI joint, Negative SLR. NVI. Office Procedures Joint Injection/Drain Joint Injection/Drain Details: right hip bursa Prep: site was prepped using aseptic technique, ethochloride spray was applied and injection warnings given Injected: 80 mg of, DepoMedrol, with 8 mL of and 1% plain lidocaine Procedure: The patient tolerated the procedure well and there was some relief with the local anesthesia Coding 12843 - Glenohumeral/Tronchanteric Bursa/Intraarticular Procedure code (CPT) selection complete Results Reviewed Results Reviewed: 05/12/23 13:28 Lidocaine HCl 2 % MPF [Xylocaine 2 % MPF] 5 ml .ROUTE .STK-MED ONE methylPREDNISolone acetate [DEPO-MedroL] 80 mg .ROUTE .STK-MED ONE Assessment & Plan Assessment & Plan (1) Trochanteric bursitis, right hip: Code(s): M70.61 - Trochanteric bursitis, right hip Plan We discussed options today which include steroid injection. They did consent to move forward with the right hip injection, which was tolerated well. I recommended rest, ice and elevation and OTC anti-inflammatories PRN for discomfort. If symptoms persist or worsens over the next 6-8 weeks, patient will contact the office, otherwise follow-up as needed. Patient Instructions: Scribed for Nicole Simmons PA-C, by Dwayne Sherman medical lab technologist, on 05/12/2023 at 1:30 PM EST. Nicole Schaefer PA-C, have personally reviewed and agree with the information entered by the scribe. Coding Level of Care Code Est Pt Level 3 (96897) Diagnoses Trochanteric bursitis, right hip M70.61 CPT Codes Coding - Joint 7: 46076 - Glenohumeral/Tronchanteric Bursa/Intraarticular ([id number])
[2023-05-12 13:17] VITALS: BMI 29.3
== END 2023-05-12 13:39 | disposition home or self-care (01) ==
PROVIDERS: PCP Internal Medicine; Visit Provider Physician Assistant
DX: M70.61 Trochanteric bursitis, right hip (principal)
CPT/HCPCS: 20610; 99213

== ENCOUNTER → 2023-05-12 13:07 | Outpatient (BNVA) | payer MEDICARE, MEDICAID, SELFPAY | PROVIDERS: PCP Internal Medicine; Visit Provider Physician Assistant | DX: M70.61 Trochanteric bursitis, right hip (principal) | CPT/HCPCS: 20610; 99212; J1040 ==

== ENCOUNTER 2023-05-23 12:32 | Outpatient (AMB) | payer MEDICARE, MEDICAID, SELFPAY ==
[2023-05-23 12:42] VITALS: BP 136/70; PULSE 78; O2SAT 97; BMI 28.6
--- NOTE | 2023-05-23 12:42 | MHC.PC.OV ---
Vital Signs 05/23/23 12:42 Height 5 ft 8 in Weight 188 lb BMI 28.6 BP 136/70 Blood Pressure Location Lt brachial Position Sitting Pulse 78 Pulse Source Pulse Oximeter Pulse Oximetry (%) 97 Oxygen Delivery Method Room Air Intake Visit Reasons: COPD Allergies azithromycin [AZITHROMYCIN] Allergy (Unknown, Verified 05/23/23 12:43) HIVES clarithromycin [From Biaxin] Allergy (Unknown, Verified 05/23/23 12:43) Unknown dextromethorphan [From NYQUIL] Allergy (Unknown, Verified 05/23/23 12:43) HIVES divalproex sodium [Depakote] Allergy (Unknown, Verified 05/23/23 12:43) Unknown doxycycline Allergy (Unknown, Verified 05/23/23 12:43) unknown doxylamine [From NYQUIL] Allergy (Unknown, Verified 05/23/23 12:43) HIVES morphine [MORPHINE] Allergy (Unknown, Verified 05/23/23 12:43) TACHYCARDIA pseudoephedrine [From DAYQUIL SINUS PRESSURE/PAIN] Allergy (Unknown, Verified 05/23/23 12:43) HIVES rosuvastatin Allergy (Unknown, Verified 05/23/23 12:43) sob Medication List - Last Reconciled 05/23/23 by Zuri Feldman MD [shower chair As directed] albuterol sulfate 2.5 mg (3 mL) inhalation QID PRN 30 days albuterol sulfate 90 mcg/actuation 2 puffs PO Q6H PRN NS alprazolam 0.25 mg PO BEDTIME PRN apixaban (Eliquis) 2.5 mg PO BID atorvastatin 80 mg PO BEDTIME 90 days diclofenac sodium 1% (Arthritis Pain (diclofenac)) 2 grams topical QID PRN fluticasone propion-salmeterol 250-50 mcg/dose (Wixela Inhub) 1 inh inhalation BID 30 days fluticasone propionate 50 mcg/actuation 2 sprays intranasal DAILY gabapentin 300 mg PO TID hydrocortisone 2.5% (Proctosol HC) 1 appl SC BID-QID PRN lidocaine 4% 1 patch topical DAILY PRN miconazole nitrate 2% (Zeasorb AF) 1 appl topical DAILY miscellaneous medical supply 1 ea miscellaneous QID PRN 12 months nicotine (polacrilex) 2 mg buccal Q4-8H PRN nystatin 1 appl topical TID 30 days omeprazole 20 mg PO BID 90 days oxycodone-acetaminophen 5-325 mg (Percocet) 1 tab PO Q4H PRN tamsulosin 0.4 mg PO BEDTIME 90 days tizanidine 2 mg PO Q8H PRN varenicline (Chantix Continuing Month Box) 1 mg PO BID [WALKER As directed] Tobacco use date assessed: 02/14/23 Fall risk assessment: No Falls in past year Last assessed Fall Risk: 05/23/23 Dental Screening Dental Screen Date: 05/23/23 Did you have a dental visit in the last 12 months?: Yes Did you have a dental problem in the last 6 months where you did not have access to dental care?: No Was dental information given to patient?: Patient has dentist HPI COPD HPI Details 63-year-old overweight male seen April 2023 for a right hip pain in which CT scan was ordered patient did see Ortho in 05/12/2023 patient got a right hip injection. Review of the notes had colonoscopy in 2017 and had tubular adenoma. Patient has a history of CVA with left subclavian artery occlusion having a bypass in 2016 BPH, impaired glucose tolerance, hypercholesterolemia GERD COPD in gel as anxiety disorder. Patient comes in for follow-up. complains of nipple pain Right side only. also noted R elbow mass - no changes PFSH Medical History Annual physical exam Annual physical exam Anxiety Back strain BPH (benign prostatic hyperplasia) Brain aneurysm Carpal tunnel syndrome Contusion of chest COPD (chronic obstructive pulmonary disease) CVA (cerebral vascular accident) Femoral fracture GERD (gastroesophageal reflux disease) Hypercholesterolemia Impaired glucose tolerance Insomnia Left subclavian artery occlusion Osteoarthritis of right hip Overweight (BMI 25.0-29.9) Pes anserinus bursitis of left knee Polysubstance abuse Pulmonary nodule Rib fractures Right hip pain Right middle lobe pulmonary infiltrate Seizure disorder Sinus congestion SOB (shortness of breath) Tinea cruris Upper respiratory tract infection Urgency of micturition Vitamin B12 deficiency Vitamin D deficiency Vocal cord polyp Surgical History History of knee replacement procedure of right knee History of orthopedic surgery History of surgery Stenosis of subclavian bypass Family History Father CAD (coronary artery disease) Kidney malignancy Mother Myocardial infarction Brother Prostate cancer Social History Housing: Other Housing Other:: Trailer Alcohol intake: current Alcohol intake frequency: 0-2 drinks per day Alcohol type: beer Patient Tobacco Use Status: Current everyday Tobacco user Tobacco use type: Cigarette Cigarettes Per Day: 6 Years Smoked: not ready to stop 12/2022 e-Cigarette/Vaping Use: Never Used Second Hand Smoke Exposure: No service: No Current occupational status: unemployed Cognitive needs: No Hearing needs: No Vision needs: Yes Questionnaire PHQ-9 Over the last 2 weeks, how often have you been bothered by any of the following problems? 1. Little interest or pleasure in doing things: not at all 2. Feeling down, depressed, or hopeless: not at all 3. Trouble falling or staying asleep, or sleeping too much: not at all 4. Feeling tired or having little energy: not at all 5. Poor appetite or overeating: not at all 6. Feeling bad about yourself - or that you are a failure or have let yourself or your family down: not at all 7. Trouble concentrating on things, such as reading the newspaper or watching television: not at all 8. Moving or speaking so slowly that other people could have noticed. Or the opposite - being so fidgety or restless that you have been moving around a lot more than usual: not at all 9. Thoughts that you would be better off or of hurting yourself in some way: not at all Total score: 0 Depression Screening Interpretation: Negative Source: Developed by Drs. Basilio Esteves, Gina Sales, Zev Ambriz and colleagues, with an educational teodoro from [employer]. Thrive Questionnaire Date Thrive assessed: 12/02/22 AUDIT C Alcohol Use Questionnaire (AUDIT-C) 1. How often do you have a drink containing alcohol?: 4 or more times a week 2. How many drinks containing alcohol do you have on a typical day when you are drinking?: 3 or 4 3. How often do you have six or more drinks on one occasion?: Never Total Score: 5 Score Reviewed/Action Taken: Yes DANIE-7 AMB Questionnaire DANIE-7 Date DANIE - 7 assessed: 12/02/22 Source: Developed by Drs. Basilio Esteves, Gina Sales, Zev Ambriz and colleagues, with an educational teodoro from [employer]. Physical exam (Primary Care) Vital Signs: Last Vital Signs Pulse 78 05/23/23 12:42 BP 136/70 05/23/23 12:42 Pulse Ox 97 05/23/23 12:42 Oxygen Delivery Method Room Air 05/23/23 12:42 Care Plan Goal for BP management: Nipple pain no definite mass noted on the right side no redness, left nipple no pain 3 x 2 in mass noted on the right elbow nontender no redness BMI result Body Mass Index 28.6 Tobacco/Smoking Status: Tobacco use Status Tobacco use date assessed 02/14/23 05/23/23 12:44 Patient Tobacco Use Status Current everyday Tobacco 05/23/23 12:44 Tobacco use type Cigarette 05/23/23 12:44 e-Cigarette/Vaping Use Never Used 05/23/23 12:44 PHQ-9: PHQ-9 Score PHQ-9: Total score 0 05/23/23 12:44 Depression Screening Interpretation: Negative Thrive Assessment: Date of Thrive Assessment Date Thrive assessed 12/02/22 05/23/23 12:44 Const General: alert; No acute distress Eyes Conjunctivae: conjunctivae normal Resp Auscultation: clear to auscultation bilaterally Cardio Rate: regular rate Rhythm: regular rhythm GI Inspection: Yes normal to inspection Extrem General: Yes normal to inspection and No edema Assessment and Plan Assessment & Plan (1) Trochanteric bursitis, right hip: Code(s): M70.61 - Trochanteric bursitis, right hip Plan: Patient followed up with orthopedics and had injections done (2) Tubular adenoma of colon: Comment: 2017 Dr. Weir Code(s): D12.6 - Benign neoplasm of colon, unspecified Plan: Reminded about colonoscopy (3) CVA (cerebral vascular accident): Code(s): I63.9 - Cerebral infarction, unspecified Plan: Control the cholesterol, weight, blood pressure (4) Tobacco abuse: Code(s): Z72.0 - Tobacco use Plan: Strongly advised to stop! (5) BPH (benign prostatic hyperplasia): Code(s): N40.0 - Benign prostatic hyperplasia without lower urinary tract symptoms Qualifiers: Lower urinary tract symptom presence: symptoms present Lower urinary tract symptom detail: urinary frequency Qualified Code(s): N40.1 - Benign prostatic hyperplasia with lower urinary tract symptoms; R35.0 - Frequency of micturition Plan: Continue with tamsulosin (6) Impaired glucose tolerance: Code(s): R73.02 - Impaired glucose tolerance (oral) Plan: Decrease the amount of carbohydrate intake, pasta, bread, rice and potatoes are all sugar and that is aside from all the sweet stuff, remember that fruits are good but they are Sweet also. (7) Hypercholesterolemia: Code(s): E78.00 - Pure hypercholesterolemia, unspecified Plan: Avoid fried foods, chicken skin, eggs, butter margarine, pastries and meat. Be it pork or beef they have a lot of cholesterol LDL goal of less than 70 and triglyceride of less than 150 (8) GERD (gastroesophageal reflux disease): Code(s): K21.9 - Gastro-esophageal reflux disease without esophagitis Qualifiers: Esophagitis presence: without esophagitis Qualified Code(s): K21.9 - Gastro-esophageal reflux disease without esophagitis Plan: Avoid the foods that causes that usually spicy foods, tomato products, juices, coffee, soda and foods that your sensitive to. After eating do not lie down, allow 3-4 hours before in lie down. And keep the head of bed above 30 degrees to avoid the acid from going up. (9) COPD (chronic obstructive pulmonary disease): Code(s): J44.9 - Chronic obstructive pulmonary disease, unspecified Qualifiers: COPD type: emphysema Emphysema type: unspecified Qualified Code(s): J43.9 - Emphysema, unspecified Plan: Continue with inhaler as needed (10) Generalized anxiety disorder: Code(s): F41.1 - Generalized anxiety disorder Plan: continue with meds prn (11) Left subclavian artery occlusion: Comment: 2015 with bypass May [address]. Durbin Code(s): I70.8 - Atherosclerosis of other arteries Plan: Seen Dr. Larry and on an anticoagulant - - needs revision of the surgery but high risk. (12) Nipple pain: Code(s): N64.4 - Mastodynia (13) Lipoma: Comment: R elbow 05/2023 Code(s): D17.9 - Benign lipomatous neoplasm, unspecified Plan: reassurance- call if changes Orders: Orders Vitamin B12 and Folate Today E78.00 - Pure hypercholesterolemia, unspecified Comprehensive Met. Panel Today E78.00 - Pure hypercholesterolemia, unspecified Lipid Panel Today E78.00 - Pure hypercholesterolemia, unspecified Prostate Specific Antigen Scr Today E78.00 - Pure hypercholesterolemia, unspecified Free T4 (Free Thyroxine) Today E78.00 - Pure hypercholesterolemia, unspecified Thyroid Stimulating Hormone Today E78.00 - Pure hypercholesterolemia, unspecified Complete Blood Count Auto Diff Today E78.00 - Pure hypercholesterolemia, unspecified Hemoglobin A1c Today R73.02 - Impaired glucose tolerance (oral) MM tomosynthesis diagnostic BI Today N64.4 - Mastodynia US breast RT limited Today N64.4 - Mastodynia Follicle Stimulating Hormone Today N64.4 - Mastodynia Lutenizing Hormone Today N64.4 - Mastodynia Prolactin Today N64.4 - Mastodynia Testosterone, Total Today N64.4 - Mastodynia Referrals Gastroenterology Referral D12.6 - Benign neoplasm of colon, unspecified Medications: Refilled alprazolam 0.25 mg PO BEDTIME PRN 20 tabs 2RF anxiety F41.9 - Anxiety disorder, unspecified Coding Level of Care Code Est Pt Level 4 (93787) Diagnoses Trochanteric bursitis, right hip M70.61 Tubular adenoma of colon D12.6 CVA (cerebral vascular accident) I63.9 Tobacco abuse Z72.0 BPH (benign prostatic hyperplasia) N40.1; R35.0 Lower urinary tract symptom presence: symptoms present Lower urinary tract symptom detail: urinary frequency Impaired glucose tolerance R73.02 Hypercholesterolemia E78.00 GERD (gastroesophageal reflux disease) K21.9 Esophagitis presence: without esophagitis COPD (chronic obstructive pulmonary disease) J43.9 COPD type: emphysema Emphysema type: unspecified Generalized anxiety disorder F41.1 Left subclavian artery occlusion I70.8 Nipple pain N64.4 Lipoma D17.9
== END 2023-05-23 13:23 | disposition home or self-care (01) ==
PROVIDERS: PCP Internal Medicine; Visit Provider Internal Medicine
DX: J43.9 Emphysema, unspecified (principal); M70.61 Trochanteric bursitis, right hip; Z86.010 Personal history of colon polyps; F17.210 Nicotine dependence, cigarettes, uncomplicated
CPT/HCPCS: 99214

== ENCOUNTER → 2023-06-12 13:00 | Outpatient (BNV) | payer MEDICARE, MEDICAID, SELFPAY | PROVIDERS: PCP Internal Medicine; Visit Provider Radiology Diagnostic Radiology | DX: N64.4 Mastodynia (principal) | CPT/HCPCS: 76642; 77062; 77066; G0279 ==

== ENCOUNTER 2023-06-12 13:13 | Outpatient (REF) | payer MEDICARE, MEDICAID, SELFPAY ==
--- NOTE | ~2023-06-12 | US_ITS ---
EXAMINATION: MM DIAGNOSTIC DIGITAL BREAST TOMOSYNTHESIS, BILATERAL US BREAST LIMITED, RIGHT MAMMOGRAPHY: CLINICAL INFORMATION: Right retroareolar tenderness and palpable abnormality. COMPARISON: Mammography: None. Baseline exam. TECHNIQUE: Digital breast tomosynthesis is performed in both the craniocaudal and mediolateral oblique views along with computer-aided detection (CAD). Synthesized 2D images are generated from the tomosynthesis. FINDINGS: The breasts are almost entirely fatty (ACR BI-RADS breast composition Category a). There is mild to moderate flame-shaped breast tissue development in the right subareolar region consistent with gynecomastia. There is otherwise no suspicious mass, suspicious grouped calcifications, or areas of architectural distortion in either breast. ULTRASOUND: CLINICAL INFORMATION: Right retroareolar tenderness and palpable abnormality. COMPARISON: None TECHNIQUE: Targeted sonographic evaluation right retroareolar region was performed using a high frequency linear transducer. Selected archived documentation. FINDINGS: RIGHT BREAST: There is [id number] breast tissue development in the retroareolar region of the right breast, consistent with gynecomastia. There is no mass, cystic abnormality, abnormal shadowing, or edema within the soft tissue planes. US/US breast RT limited mamm only IMPRESSION: Benign male gynecomastia right breast. No evidence of malignancy. Recommend clinical management. No abnormality left breast. OVERALL ASSESSMENT: Mammography: BI-RADS 2 - Benign Findings Ultrasound: BI-RADS 2 - Benign Findings RECOMMENDATION: 1 year F/U Results were provided to the patient at time of visit by the technologist. This patient's information was entered into a reminder system with a target due date for their next mammogram.
[2023-06-12 14:11] LABS: MANUAL DIFF FLAG NO
[2023-06-12 14:50] LABS: Basophils Absolute Auto 0.1 X10*3/uL (0.0-0.2); Basophils Percent Auto 0.7 % (0-2); Eosinophils Absolute Auto 0.1 X10*3/uL (0.0-0.4); Eosinophils Percent Auto 1.2 % (0-4); Hematocrit 44.1 % (42.0-52.0); Hemoglobin 15.3 g/dl (14.0-18.0); Imm Gran Abs Auto 0.04 X10*3/uL (0.00-0.03); Imm Gran Pct Auto 0.5 % (0.0-0.4); Lymphocytes Absolute Auto 1.5 X10*3/uL (1.2-4.9); Lymphocytes Percent Auto 18.6 % (20-40); Mean Corpuscular HGB Conc 34.7 g/dl (31.0-36.0); Mean Corpuscular Hemoglobin 33.9 pg (27.0-33.0); Mean Corpuscular Volume 97.8 fL (80.0-98.0); Mean Platelet Volume 9.5 fL (9.4-12.4); Monocytes Absolute Auto 0.8 X10*3/uL (0.1-1.2); Monocytes Percent Auto 9.2 % (2-11); Neutrophils Absolute Auto 5.7 x10*3/uL (2.0-8.3); Neutrophils Percent Auto 69.8 % (45-73); Platelet Count 229 X10*3/uL (160-400); Red Blood Count 4.51 X10*6/uL (4.60-5.80); Red Cell Distribution Width 15.1 % (11.0-16.0); White Blood Count 8.1 X10*3/uL (4.8-10.8)
[2023-06-12 15:10] LABS: Estimated Average Glucose 105 mg/dL; Hemoglobin A1c % 5.3 % (<6.0)
[2023-06-12 16:56] LABS: Alanine Aminotransferase 14 U/L (0-40); Albumin Level 3.9 g/dL (3.5-5.0); Alkaline Phosphatase 105 U/L (39-117); Anion Gap 12 (12-20); Aspartate Amino Transferase 14 U/L (5-37); Bilirubin Total 0.6 mg/dL (0.0-1.0); Blood Urea Nitrogen 6 mg/dL (9-16); Calcium 9.2 mg/dL (8.4-10.2); Carbon Dioxide 26 mmol/L (22-29); Chloride 109 mmol/L (96-108); Cholesterol 136 mg/dL (<200); Estimated Glomerular Filt Rate > 60; Glucose Random 94 mg/dL (60-115); HDL Cholesterol 77 mg/dL (>40); LDL Cholesterol Calculated 49 mg/dL (<100); Potassium 4.1 mmol/L (3.3-5.1); Sodium 143 mmol/L (135-145); Total Protein 6.8 g/dL (6.5-8.0); Triglycerides 53 mg/dL (<150)
[2023-06-12 17:21] LABS: Free T4 (Free Thyroxine) 0.88 ng/dL (0.71-1.85); Thyroid Stimulating Hormone 2.29 uIU/mL (0.32-4.0)
[2023-06-12 17:24] LABS: Folate 12.8 ng/mL (> or = 4.0); Prostate Specific Antigen Scr 5.03 ng/mL (<0.05-4.0); Vitamin B12 239 pg/mL (200-900)
[2023-06-13 18:53] LABS: Follicle Stimulating Hormone 7.9 mIU/mL (1.6-8.0); Lutenizing Hormone 3.1 mIU/mL (1.6-15.2); Prolactin 6.1 ng/mL (2.0-18.0)
[2023-06-16 13:07] LABS: Testosterone, Total 342 ng/dL (250-1100)
== END 2023-06-12 13:14 | disposition home or self-care (01) ==
LOC: HO.MAMMO 13:13
PROVIDERS: PCP Internal Medicine; Visit Provider Internal Medicine
DX: E78.00 Pure hypercholesterolemia, unspecified (principal); R73.02 Impaired glucose tolerance (oral); N64.4 Mastodynia; Z12.5 Encounter for screening for malignant neoplasm of prostate
CPT/HCPCS: 36415; 76642; 77062; 77066; 80053; 80061; 82607; 82746; 83001; 83002; 83036; 84146; 84153; 84403; 84439; 84443; 85025

== ENCOUNTER 2023-06-16 12:03 | Outpatient (REF) | payer MEDICARE, MEDICAID, SELFPAY ==
--- NOTE | ~2023-06-16 | XR_ITS ---
EXAMINATION: XR PELVIS CLINICAL INFORMATION: Pain COMPARISON: Pelvis radiograph from 08/09/2021 TECHNIQUE: AP view of the pelvis. FINDINGS: No acute visible fracture or dislocation. Degenerative changes of the bilateral femoral acetabular joints, right greater than left with joint space narrowing and periarticular osteophyte formation. Degenerative arthropathy of the lumbosacral spine and pubic symphysis. Joint spaces and alignment are otherwise maintained. Bowel gas is unremarkable. Pelvic phleboliths are noted. Atherosclerotic calcifications are visualized. XR/XR pelvis 1-2V IMPRESSION: 1. No acute visible fracture or dislocation. 2. Degenerative changes of the bilateral femoral acetabular joints, right greater than left.
== END 2023-06-16 12:04 | disposition home or self-care (01) ==
LOC: HO.HOSX 12:03
PROVIDERS: Visit Provider Orthopaedic Surgery
DX: M25.551 Pain in right hip (principal); M25.552 Pain in left hip
CPT/HCPCS: 72170; 99212

== ENCOUNTER 2023-06-16 12:41 | Outpatient (AMB) | payer MEDICARE, MEDICAID, SELFPAY ==
--- NOTE | 2023-06-16 12:44 | A.OFFVIS_ITS ---
Intake Intake Visit Reasons: OV-RT hip discuss further treatment Intake Note: Stas is a 63 year old male who presents today for a follow up of his right hip pain to discuss alternative treatment options. Last Injection was done on 05/12/23 in the right hip. Allergies azithromycin [AZITHROMYCIN] Allergy (Unknown, Verified 05/23/23 12:43) HIVES clarithromycin [From Biaxin] Allergy (Unknown, Verified 05/23/23 12:43) Unknown dextromethorphan [From NYQUIL] Allergy (Unknown, Verified 05/23/23 12:43) HIVES divalproex sodium [Depakote] Allergy (Unknown, Verified 05/23/23 12:43) Unknown doxycycline Allergy (Unknown, Verified 05/23/23 12:43) unknown doxylamine [From NYQUIL] Allergy (Unknown, Verified 05/23/23 12:43) HIVES morphine [MORPHINE] Allergy (Unknown, Verified 05/23/23 12:43) TACHYCARDIA pseudoephedrine [From DAYQUIL SINUS PRESSURE/PAIN] Allergy (Unknown, Verified 05/23/23 12:43) HIVES rosuvastatin Allergy (Unknown, Verified 05/23/23 12:43) sob HPI OV-RT hip discuss further treatment HPI Details Stas is a 63 year old man who presents to discuss his right hip pain. He was last seen, and injected in his hip bursa, on 05/12/23 by MEMO Simmons. He continues to have pain with weight-bearing activities, localized to his groin. He says he has been walking with a painful limp for 8 months now . He says he walks his dog daily, which is difficult for him. He has an electric wheelchair but does not use it often. He says the injection was not helpful. He has completed a course of PT in the past which he feels made his pain worse. He takes Percocets for his arm pain, as well as Tylenol. He says this helps somewhat with his hip pain. [facility] Medical History (Updated 06/16/23 @ 13:05 by Jelani Moore) Annual physical exam Annual physical exam Anxiety Back strain BPH (benign prostatic hyperplasia) Brain aneurysm Carpal tunnel syndrome Contusion of chest COPD (chronic obstructive pulmonary disease) CVA (cerebral vascular accident) Femoral fracture GERD (gastroesophageal reflux disease) Hypercholesterolemia Impaired glucose tolerance Insomnia Left subclavian artery occlusion Osteoarthritis of right hip Overweight (BMI 25.0-29.9) Pes anserinus bursitis of left knee Polysubstance abuse Pulmonary nodule Rib fractures Right hip pain Right middle lobe pulmonary infiltrate Seizure disorder Sinus congestion SOB (shortness of breath) Tinea cruris Upper respiratory tract infection Urgency of micturition Vitamin B12 deficiency Vitamin D deficiency Vocal cord polyp Surgical History History of knee replacement procedure of right knee History of orthopedic surgery History of surgery Stenosis of subclavian bypass Family History Father CAD (coronary artery disease) Kidney malignancy Mother Myocardial infarction Brother Prostate cancer Social History Housing: Other Housing Other:: Trailer Alcohol intake: current Alcohol intake frequency: 0-2 drinks per day Alcohol type: beer Patient Tobacco Use Status: Current everyday Tobacco user Tobacco use type: Cigarette Cigarettes Per Day: 6 Years Smoked: not ready to stop 12/2022 e-Cigarette/Vaping Use: Never Used Second Hand Smoke Exposure: No service: No Current occupational status: unemployed Cognitive needs: No Hearing needs: No Vision needs: Yes Review of Systems Const All systems reviewed & are unremarkable except as noted in HPI and below Physical Exam Const General: no acute distress, alert and awake Orientation/consciousness: patient oriented x3 HEENT Head: Yes normocephalic and Yes atraumatic Eyes EOM: EOMs intact bilaterally Resp Effort & Inspection: normal respiratory effort and able to speak in complete sentences Cardio Jugular venous distension: no JVD Skin General skin exam: turgor normal Rashes: no rashes Neuro General: patient oriented x3 Extrem Other: Right Hip: + Impingement test Psych Appearance: grossly normal Affect: normal affect Attitude: cooperative Results Reviewed Results Reviewed: I personally reviewed relevant radiographs. Moderate right hip OA Assessment & Plan Assessment & Plan (1) Osteoarthritis of right hip: Code(s): M16.11 - Unilateral primary osteoarthritis, right hip Plan: This is a 63 year old man with moderate right hip OA. He has pain with weight- bearing activities, localized to his groin. He was last seen, and his bursa was injected, on 05/12/23, with no relief. He found no relief from PT and feels limited in his ADLs. I discussed his diagnosis and treatment options. I recommend a right CHUYITA & NSAIDs. I discussed the risks, benefits, and alternatives including, but not limited to, the risk of pain, infection, stiffness, need for further surgery as well as potential medical complications such as blood clots, pulmonary embolism and cardiac complications. I discussed the recovery timeline and process as well as the importance of PT. Stas is a good candidate for this surgery, and he wishes to proceed with this decision. He will speak with Nory to schedule this procedure. He takes Percocets for his arm pain. Plan Scribed for Raheel Mobley MD by Jelani Moore, medical aides teacher, on 06/16/23 at 1:05 PM, EST. Orders: Orders XR pelvis 1-2V Today M25.559 - Pain in unspecified hip Coding Level of Care Code Est Pt Level 4 (22664) Diagnoses Osteoarthritis of right hip M16.11
== END 2023-06-16 13:24 | disposition home or self-care (01) ==
PROVIDERS: PCP Internal Medicine; Visit Provider Orthopaedic Surgery
DX: M16.11 Unilateral primary osteoarthritis, right hip (principal)
CPT/HCPCS: 99214

== ENCOUNTER 2023-06-20 13:57 | Outpatient (AMB) | payer MEDICARE, MEDICAID, SELFPAY ==
[2023-06-20 13:59] VITALS: BP 158/78; PULSE 88; O2SAT 96
--- NOTE | 2023-06-20 13:59 | MHC.OFFWIV ---
Intake Vital Signs 06/20/23 13:59 BP 158/78 H Blood Pressure Location Rt brachial Position Sitting Pulse 88 Pulse Source Pulse Oximeter Pulse Oximetry (%) 96 Oxygen Delivery Method Room Air Intake Visit Reasons: EST/ trouble breathing Intake Note: Triaged pt in [facility]: notably tachypneic, skin warm/dry. Admits to using a bug spray Zevo 3 days ago in his kitchen and started having difficulty breathing since then. No relief from his inhalers or nebulizers. Patient Tobacco Use Status: Current everyday Tobacco user Allergies azithromycin [AZITHROMYCIN] Allergy (Unknown, Verified 05/23/23 12:43) HIVES clarithromycin [From Biaxin] Allergy (Unknown, Verified 05/23/23 12:43) Unknown dextromethorphan [From NYQUIL] Allergy (Unknown, Verified 05/23/23 12:43) HIVES divalproex sodium [Depakote] Allergy (Unknown, Verified 05/23/23 12:43) Unknown doxycycline Allergy (Unknown, Verified 05/23/23 12:43) unknown doxylamine [From NYQUIL] Allergy (Unknown, Verified 05/23/23 12:43) HIVES morphine [MORPHINE] Allergy (Unknown, Verified 05/23/23 12:43) TACHYCARDIA pseudoephedrine [From DAYQUIL SINUS PRESSURE/PAIN] Allergy (Unknown, Verified 05/23/23 12:43) HIVES rosuvastatin Allergy (Unknown, Verified 05/23/23 12:43) sob HPI EST/ trouble breathing HPI Details 63-year-old male presents to the office for a sick visit. Patient has history of COPD. He was using a bug spray and felt increasingly short of breath. He decided to come here for an evaluation. The no symptoms of cough or productive sputum. Patient is wheezing. [facility] Medical History Tinea cruris Pes anserinus bursitis of left knee Upper respiratory tract infection Rib fractures Annual physical exam Contusion of chest Back strain Osteoarthritis of right hip Right hip pain Right middle lobe pulmonary infiltrate SOB (shortness of breath) Sinus congestion Overweight (BMI 25.0-29.9) Annual physical exam Urgency of micturition Carpal tunnel syndrome Femoral fracture Pulmonary nodule BPH (benign prostatic hyperplasia) Seizure disorder Insomnia Vitamin D deficiency Impaired glucose tolerance Hypercholesterolemia Anxiety GERD (gastroesophageal reflux disease) COPD (chronic obstructive pulmonary disease) Polysubstance abuse Left subclavian artery occlusion Brain aneurysm CVA (cerebral vascular accident) Vocal cord polyp Vitamin B12 deficiency Surgical History Stenosis of subclavian bypass History of surgery History of orthopedic surgery History of knee replacement procedure of right knee Family History Father CAD (coronary artery disease) Kidney malignancy Mother Myocardial infarction Brother Prostate cancer Social History Housing: Other Housing Other:: Trailer Alcohol intake: current Alcohol intake frequency: 0-2 drinks per day Alcohol type: beer Patient Tobacco Use Status: Current everyday Tobacco user Tobacco use type: Cigarette Cigarettes Per Day: 6 Years Smoked: not ready to stop 12/2022 e-Cigarette/Vaping Use: Never Used Second Hand Smoke Exposure: No service: No Current occupational status: unemployed Cognitive needs: No Hearing needs: No Vision needs: Yes Physical Exam Vital Signs: Last Vital Signs Pulse 88 06/20/23 13:59 BP 158/78 H 06/20/23 13:59 Pulse Ox 96 06/20/23 13:59 Oxygen Delivery Method Room Air 06/20/23 13:59 Const General: cooperative and healthy appearing Nutritional Appearance: well nourished Orientation/consciousness: patient oriented x3 Limitations: no limitations HEENT Head: Yes normal to inspection Eyes General: appearance normal, both eyes and all related structures Neck Neck: Yes normal visual inspection Chest Chest palpation & inspection: normal palpation of entire chest wall Resp Effort & Inspection: normal respiratory effort Neuro General: patient oriented x3 Assessment & Plan Assessment & Plan (1) Wheezing: Code(s): R06.2 - Wheezing Plan: Patient's vitals are stable. Chest x-ray is unremarkable. Prednisone called in. Continue the inhalers. Orders: Orders XR chest 2V 06/20/23 R05.9 - Cough, unspecified Medications: New prednisone 6 pills by mouth day 1, 6 pills by mouth day 2, 5 pills by mouth day 3, 4 pills by mouth day 4, 3 pills by mouth day 5, 2 pills by mouth day 6, 1 pill by mouth day 7 and 1 pill by mouth day 8. 10 mg PO DAILY 28 tabs 0RF sulfamethoxazole-trimethoprim 800-160 mg (Bactrim DS) 1 tab PO BID 14 tabs 0RF 7 days Changed From albuterol sulfate 90 mcg/actuation 2 puffs PO Q6H PRN 8.5 grams 3RF bronchospasm NS J43.9 - Emphysema, unspecified To albuterol sulfate 90 mcg/actuation 2 puffs PO Q6H PRN 8.5 grams 3RF bronchospasm NS J43.9 - Emphysema, unspecified Coding Level of Care Code Est Pt Level 4 (69159) Diagnoses Wheezing R06.2
== END 2023-06-20 14:25 | disposition home or self-care (01) ==
PROVIDERS: PCP Internal Medicine; Visit Provider Internal Medicine
DX: R06.2 Wheezing (principal)
CPT/HCPCS: 99214

== ENCOUNTER 2023-06-20 14:00 | Outpatient (REF) | payer MEDICARE, MEDICAID, SELFPAY ==
--- NOTE | ~2023-06-20 | XR_ITS ---
EXAMINATION: XR CHEST CLINICAL INFORMATION: Cough COMPARISON: November 2022 TECHNIQUE: 2 views of the chest were obtained. FINDINGS: Cardiomediastinal silhouette is unremarkable. There is stable linear opacity in the right lower lobe and hyperinflated lungs. No evidence of infiltrates nodules or pleural effusion XR/XR chest 2V IMPRESSION: COPD
== END 2023-06-20 14:01 | disposition home or self-care (01) ==
LOC: HO.HMGCX 14:00
PROVIDERS: PCP Internal Medicine; Visit Provider Internal Medicine
DX: R05.9 Cough, unspecified (principal)
CPT/HCPCS: 71046

== ENCOUNTER 2023-07-16 10:50 | Outpatient (AMB) | payer MEDICARE, MEDICAID, SELFPAY ==
--- NOTE | 2023-07-16 11:09 | A.OFFVIS_ITS ---
Intake Vital Signs 07/16/23 11:23 Height 5 ft 8 in Weight 190 lb BMI 28.9 BP 135/59 L Blood Pressure Location Lt brachial Position Sitting Pulse 107 H Intake Visit Reasons: Colonoscopy Screening Intake Note: Patient new consult for 3rd pre Colonoscopy screening Patient cc: vomiting, headaches, acid reflex and upset stomach. Environmental Field Team Member Required: No Accompanied by: Self / Same As Patient Allergies azithromycin [AZITHROMYCIN] Allergy (Unknown, Verified 07/16/23 11:58) HIVES clarithromycin [From Biaxin] Allergy (Unknown, Verified 07/16/23 11:58) Unknown dextromethorphan [From NYQUIL] Allergy (Unknown, Verified 07/16/23 11:58) HIVES divalproex sodium [Depakote] Allergy (Unknown, Verified 07/16/23 11:58) Unknown doxycycline Allergy (Unknown, Verified 07/16/23 11:58) unknown doxylamine [From NYQUIL] Allergy (Unknown, Verified 07/16/23 11:58) HIVES morphine [MORPHINE] Allergy (Unknown, Verified 07/16/23 11:58) TACHYCARDIA pseudoephedrine [From DAYQUIL SINUS PRESSURE/PAIN] Allergy (Unknown, Verified 07/16/23 11:58) HIVES rosuvastatin Allergy (Unknown, Verified 07/16/23 11:58) sob HPI HPI Comments History of Present Illness Details A 63 y/o referred for screening colonoscopy- 2 previous colonoscopy- hx colon polyps-last by Dr. Weir He has a very bad headache headache -today- he gets them time to time- and but not like the when he has today he also says that he is short of breath he is gasping he had not uses had his inhalers he did not bring along with him today. He has not had a fever Coughing, right hip replacement in 2 months Bowels ok- loose-4-5 times a day for as long as he remembers as an adult Appetite good [facility] Medical History (Updated 07/16/23 @ 14:28 by Meghana Ruby PA-C) SOB (shortness of breath) Tinea cruris Pes anserinus bursitis of left knee Upper respiratory tract infection Rib fractures Annual physical exam Contusion of chest Back strain Osteoarthritis of right hip Right hip pain Right middle lobe pulmonary infiltrate Sinus congestion Overweight (BMI 25.0-29.9) Annual physical exam Urgency of micturition Carpal tunnel syndrome Femoral fracture Pulmonary nodule BPH (benign prostatic hyperplasia) Seizure disorder Insomnia Vitamin D deficiency Impaired glucose tolerance Hypercholesterolemia Anxiety GERD (gastroesophageal reflux disease) COPD (chronic obstructive pulmonary disease) Polysubstance abuse Left subclavian artery occlusion Brain aneurysm CVA (cerebral vascular accident) Vocal cord polyp Vitamin B12 deficiency Surgical History Stenosis of subclavian bypass History of surgery History of orthopedic surgery History of knee replacement procedure of right knee Family History Father CAD (coronary artery disease) Kidney malignancy Mother Myocardial infarction Brother Prostate cancer Social History Housing: Other Housing Other:: Trailer Alcohol intake: current Alcohol intake frequency: 0-2 drinks per day Alcohol type: beer Patient Tobacco Use Status: Current everyday Tobacco user Tobacco use type: Cigarette Cigarettes Per Day: 6 Years Smoked: not ready to stop 12/2022 e-Cigarette/Vaping Use: Never Used Second Hand Smoke Exposure: No service: No Current occupational status: unemployed Cognitive needs: No Hearing needs: No Vision needs: Yes Review of Systems Const All systems reviewed & are unremarkable except as noted in HPI and below Card Denies chest pain, Reports dyspnea and Reports dyspnea on exertion Resp Reports cough, Reports dyspnea, Reports dyspnea on exertion and Reports wheezing GI Denies abdominal pain and Denies heartburn Aller/Immun Reports wheezing Physical Exam Vital Signs: Last Vital Signs Pulse 107 H 07/16/23 11:23 BP 135/59 L 07/16/23 11:23 BMI result Body Mass Index 28.9 Const General: anxious Orientation/consciousness: patient oriented x3 Limitations: ambulation with cane Resp Effort & Inspection: Actively coughing Neuro General: patient oriented x3 Assessment & Plan Assessment & Plan (1) Wheezing: Comment: Not noted Code(s): R06.2 - Wheezing Plan: ED (2) COPD (chronic obstructive pulmonary disease): Code(s): J44.9 - Chronic obstructive pulmonary disease, unspecified Qualifiers: COPD type: emphysema Emphysema type: unspecified Qualified Code(s): J43.9 - Emphysema, unspecified (3) Tubular adenoma of colon: Comment: 2017 Dr. Weir Code(s): D12.6 - Benign neoplasm of colon, unspecified (4) SOB (shortness of breath): Comment: Shortness of breath, cough-does not have had inhalers present Code(s): R06.02 - Shortness of breath Plan: ED (5) Headache: Comment: Headache, afebrile, Code(s): R51.9 - Headache, unspecified Plan: r/o covid Plan ED, via w/c- mask appied Patient Instructions: 63-year-old male referred for index screening colonoscopy presents short of breath cough and headache Sent to ED via wheel chair- He will follow-up timing appropriate Coding Level of Care Code New Pt Level 4 (43991) Diagnoses Wheezing R06.2 Pulmonary emphysema, unspecified emphysema type J43.9 COPD type: emphysema Emphysema type: unspecified Tubular adenoma of colon D12.6 SOB (shortness of breath) R06.02 Headache R51.9 Time Spent (min) 25
[2023-07-16 11:23] VITALS: BP 135/59; PULSE 107; BMI 28.9
== END 2023-07-16 11:56 | disposition home or self-care (01) ==
PROVIDERS: PCP Internal Medicine; Visit Provider Physician Assistant
DX: R06.2 Wheezing (principal); J43.9 Emphysema, unspecified; D12.6 Benign neoplasm of colon, unspecified; R06.02 Shortness of breath; R51.9 Headache, unspecified
CPT/HCPCS: 99204

== ENCOUNTER → 2023-07-16 10:50 | Outpatient (BNVA) | payer MEDICARE, MEDICAID, SELFPAY | PROVIDERS: PCP Internal Medicine; Visit Provider Physician Assistant ==

== ENCOUNTER 2023-07-16 11:40 | Emergency (ER) | payer MEDICARE, MEDICAID, SELFPAY ==
--- NOTE | ~2023-07-16 | XR_ITS ---
EXAMINATION: XR CHEST CLINICAL INFORMATION: Shortness of breath. COMPARISON: 06/20/2023 TECHNIQUE: Frontal view of the chest was obtained. FINDINGS: The lungs are moderately expanded. There is new patchy airspace disease at the left lung base. There is stable parenchymal scarring in the right mid lung. No new airspace disease. No pleural effusion. Cardiac silhouette is unchanged. Possible hiatal hernia. XR/XR chest 1V IMPRESSION: New patchy airspace disease at the left lung base. This may represent atelectasis versus infiltrate. Advise clinical correlation.
[2023-07-16 12:00] VITALS: BP 107/58; PULSE 104; RESP 20; TEMP 37.4; O2SAT 94; BMI 32.7
--- NOTE | 2023-07-16 12:00 | ED.SOB ---
HPI - SOB/Dyspnea General Chief Complaint: General Medical Stated Complaint: Diff breathing/Headache Time Seen by Provider: 07/16/23 16:31 Source: patient Mode of arrival: ambulatory Limitations: no limitations History of Present Illness HPI Narrative: Patient smoker , history of COPD with frequent pneumonias comes in for 10 days of cough nasal congestion getting worse with subjective fever cough is with mucopurulent phlegm no other family members no chest pain or palpitations Related Data Home Medications Medication Instructions Recorded Confirmed gabapentin 300 mg capsule 300 mg PO TID 09/21/20 05/23/23 apixaban 2.5 mg tablet (Eliquis) 2.5 mg PO BID 09/09/22 05/23/23 oxycodone-acetaminophen 5 mg-325 1 tab PO Q4H PRN 12/23/22 05/23/23 mg tablet (Percocet) Previous Rx's Medication Instructions Recorded shower chair #1 ea 04/25/21 miscellaneous medical supply 1 ea miscellaneous QID PRN 01/10/22 shortness of breath or wheezing 12 months #1 ea miconazole nitrate 2 % topical 1 appl topical DAILY #71 grams 06/12/22 powder (Zeasorb AF) nystatin 100,000 unit/gram topical 1 appl topical TID 30 days #30 06/12/22 ointment grams albuterol sulfate 2.5 mg/3 mL 2.5 mg (3 mL) inhalation QID PRN 11/12/22 (0.083 %) solution for nebulization shortness of breath or wheezing 30 days #180 mL hydrocortisone 2.5 % topical cream 1 appl NE BID-QID PRN itching #30 12/02/22 with perineal applicator grams (Proctosol HC) atorvastatin 80 mg tablet 80 mg PO BEDTIME 90 days #90 tabs 12/13/22 fluticasone 250 mcg-salmeterol 50 1 inh inhalation BID 30 days #60 ea 12/13/22 mcg/dose blistr powdr for inhalation (Wixela Inhub) nicotine (polacrilex) 2 mg gum 2 mg buccal Q4-8H PRN nicotine 12/13/22 cravings #50 ea omeprazole 20 mg capsule,delayed 20 mg PO BID 90 days #180 caps 12/13/22 release tamsulosin 0.4 mg capsule 0.4 mg PO BEDTIME 90 days #90 caps 12/13/22 fluticasone propionate 50 2 spray intranasal DAILY #3 ea 02/07/23 mcg/actuation nasal spray,suspension lidocaine 4 % topical patch 1 patch topical DAILY PRN pain #30 02/07/23 ea WALKER #1 ea 02/14/23 diclofenac sodium 1 % topical gel 2 g topical QID PRN pain #100 grams 02/14/23 (Arthritis Pain (diclofenac)) tizanidine 2 mg tablet 2 mg PO Q8H PRN muscle spasticity 02/14/23 #20 tabs alprazolam 0.25 mg tablet 0.25 mg PO BEDTIME PRN anxiety #20 05/23/23 tabs varenicline 1 mg tablet (Chantix 1 mg PO BID #56 tabs 06/14/23 Continuing Month Box) albuterol sulfate 90 mcg/actuation 2 puff PO Q6H PRN bronchospasm 06/20/23 aerosol inhaler #8.5 grams prednisone 10 mg tablet 10 mg PO DAILY #28 tabs 06/20/23 sulfamethoxazole 800 1 tab PO BID 7 days #14 tabs 06/20/23 mg-trimethoprim 160 mg tablet (Bactrim DS) meloxicam 15 mg tablet 15 mg PO DAILY #20 tabs 07/01/23 cefuroxime axetil 500 mg tablet 500 mg PO BID 10 days #20 tabs 07/16/23 codeine 10 mg-guaifenesin 100 mg/5 10 ml PO Q6H PRN cough #237 mL 07/16/23 mL oral liquid doxycycline hyclate 100 mg tablet 100 mg PO BID #20 tabs 07/16/23 prednisone 20 mg tablet 40 mg (2 x 20 mg) PO DAILY #10 tabs 07/16/23 Allergies Allergy/AdvReac Type Severity Reaction Status Date / Time dextromethorphan Allergy Unknown HIVES Verified 07/16/23 11:58 [From NYQUIL] divalproex sodium [Depakote] Allergy Unknown Unknown Verified 07/16/23 11:58 doxylamine [From NYQUIL] Allergy Unknown HIVES Verified 07/16/23 11:58 morphine [MORPHINE] Allergy Unknown TACHYCARDIA Verified 07/16/23 11:58 pseudoephedrine Allergy Unknown HIVES Verified 07/16/23 11:58 [From DAYQUIL SINUS PRESSURE/PAIN] rosuvastatin Allergy Unknown sob Verified 07/16/23 11:58 Review of Systems Review of Systems: Yes all other systems are reviewed and are negative [facility] Past Medical History Medical History SOB (shortness of breath) Tinea cruris Pes anserinus bursitis of left knee Upper respiratory tract infection Rib fractures Annual physical exam Contusion of chest Back strain Osteoarthritis of right hip Right hip pain Right middle lobe pulmonary infiltrate Sinus congestion Overweight (BMI 25.0-29.9) Annual physical exam Urgency of micturition Carpal tunnel syndrome Femoral fracture Pulmonary nodule BPH (benign prostatic hyperplasia) Seizure disorder Insomnia Vitamin D deficiency Impaired glucose tolerance Hypercholesterolemia Anxiety GERD (gastroesophageal reflux disease) COPD (chronic obstructive pulmonary disease) Polysubstance abuse Left subclavian artery occlusion Brain aneurysm CVA (cerebral vascular accident) Vocal cord polyp Vitamin B12 deficiency Surgical History Stenosis of subclavian bypass History of surgery History of orthopedic surgery History of knee replacement procedure of right knee Family History Family History Father CAD (coronary artery disease) Kidney malignancy Mother Myocardial infarction Brother Prostate cancer Social History Social History Housing: Other Housing Other:: Trailer Alcohol intake: never Patient Tobacco Use Status: Current everyday Tobacco user Tobacco use type: Cigarette Cigarettes Per Day: 6 Years Smoked: not ready to stop 12/2022 Smoked in Last 30 Days: No e-Cigarette/Vaping Use: Never Used Second Hand Smoke Exposure: No Use of substances other than those prescribed or required for medical reasons: No Advance Directives: No Advance Directives Information Provided: No service: No Current occupational status: unemployed Cognitive needs: No Hearing needs: No Vision needs: Yes Physical Exam Vital Signs: Vital Signs: Last Vital Signs Temp 98.1 F 07/16/23 16:00 Pulse 103 H 07/16/23 19:02 Resp 20 07/16/23 19:02 BP 130/66 07/16/23 19:02 Pulse Ox 94 07/16/23 19:02 O2 Del Method Room Air 07/16/23 19:02 O2 Flow Rate 2 07/16/23 16:00 BMI result Body Mass Index 32.7 Appearance: Alert. Oriented X3. No acute distress. Sound congested Eyes: PERRLA, No Nystagmus ENT: Pharynx normal. Oral Mucosa moist Neck: Normal inspection. Neck supple. CVS: Normal heart rate and rhythm. Pulses normal. Respiratory: No respiratory distress. Equal air entry bilateral, bilateral crackles mostly on the left side with prolonged expiration Abdomen: Soft and nontender. Bowel sounds are present, no mass palpable, no CVA tenderness Skin: Skin warm and dry. Normal skin color. Normal skin turgor. Extremities: No lower extremity edema. No calf tenderness Neuro: Oriented X 3. No motor deficit. Course Course Course Narrative: RME:? 63 yo male, pmhx COPD, presents with difficulty breathing, chest pain, epigastric pain, and nonbloody vomiting x3 times today. Has inhaler at home, has not used rescue inhaler today. No sick contacts. Denies cough/ sputum production. Lungs CTA b/l. TTP of epigastric region. No rebound/guarding. Labs, trop, EKG, CXR ordered Full HPI, ROS and PE to be performed by the primary ED provider. Medications Administered Discontinued Medications Generic Name Dose Route Start Last Admin Trade Name Freq PRN Reason Stop Dose Admin Acetaminophen 650 mg 07/16/23 17:09 07/16/23 18:31 Acetaminophen 325 Mg Tablet PO 07/16/23 17:10 650 mg ONCE ONE Administration Albuterol Sulfate 2.5 mg/ 0 mg 07/16/23 17:09 07/16/23 17:31 Albuterol/Ipratropium 3 ml INHALE 07/16/23 17:10 5 dose ONCE ONE Administration Doxycycline Monohydrate 100 mg 07/16/23 18:40 07/16/23 19:03 Doxycycline Monohydrate 100 Mg Capsule PO 07/16/23 18:41 100 mg ONCE ONE Administration Guaifenesin/Codeine Phosphate 10 ml 07/16/23 18:40 07/16/23 19:03 Guaifen/Codeine Sf 200/20/10ml 10 Ml Liquid PO 07/16/23 18:41 10 ml ONCE ONE Administration Ceftriaxone Sodium 1 gm/ 50 mls @ 100 mls/hr 07/16/23 14:33 07/16/23 18:21 Sodium Chloride IV 07/16/23 15:02 Infused ONCE ONE Infusion Ketorolac Tromethamine 30 mg 07/16/23 17:07/16/23 18:32 Ketorolac Tromethamine 30 Mg/Ml Vial IVPUSH 07/16/23 17:10 30 mg ONCE ONE Administration Methylprednisolone Sodium Succinate 125 mg 07/16/23 17:07/16/23 18:32 Methylprednisolone Sod Succ 125 Mg/2 Ml Vial IVPUSH 07/16/23 17:10 125 mg ONCE ONE Administration Medical Decision Making Medical Decision Making [facility] Narrative: Patient with bronchitis COPD small left lower lobe infiltrate saturating 94% at room air discharge patient home on Ceftin doxycycline and prednisone Differential Diagnosis Differential Diagnoses: The differential diagnosis associated with the presentation includes COPD/pneumonia/CHF Admission/Observation Consideration of admission/observation: Escalation of care including admission/observation considered Lab Data [facility] Lab Attestation statement: I reviewed the patient's lab results. 07/16/23 12:24 07/16/23 12:24 Labs: Lab Results 07/16/23 07/16/23 Range/Units 12:24 15:50 WBC 14.0 H (4.8-10.8) X10*3/uL RBC 4.57 L (4.60-5.80) X10*6/uL Hgb 15.7 (14.0-18.0) g/dl Hct 43.9 (42.0-52.0) % MCV 96.1 (80.0-98.0) fL MCH 34.4 H (27.0-33.0) pg MCHC 35.8 (31.0-36.0) g/dl RDW 14.6 (11.0-16.0) % Plt Count 209 (160-400) X10*3/uL MPV 9.2 L (9.4-12.4) fL Immature Gran % (Auto) 0.3 (0.0-0.4) % Neut % (Auto) 89.5 H (45-73) % Lymph % (Auto) 3.5 L (20-40) % Lake % (Auto) 6.4 (2-11) % Eos % (Auto) 0.1 (0-4) % Baso % (Auto) 0.2 (0-2) % Lymph # (Auto) 0.5 L (1.2-4.9) X10*3/uL Lake # (Auto) 0.9 (0.1-1.2) X10*3/uL Eos # (Auto) 0.0 (0.0-0.4) X10*3/uL Baso # (Auto) 0.0 (0.0-0.2) X10*3/uL Abs Immat Gran (auto) 0.04 H (0.00-0.03) X10*3/uL Absolute Neuts (auto) 12.5 H (2.0-8.3) x10*3/uL Absolute Nucleated RBC 0.000 (0.0-0.012) X10*3/uL Nucleated RBC % (auto) 0.0 (0.0-0.2) /100WBC Sodium 134 L (135-145) mmol/L Potassium 4.8 (3.3-5.1) mmol/L Chloride 104 (96-108) mmol/L Carbon Dioxide 23 (22-29) mmol/L Anion Gap 12 (12-20) BUN 9 (9-16) mg/dL Creatinine 0.77 (0.5-1.4) mg/dL Estim Creat Clear Calc 108.2 Estimated GFR > 60 Random Glucose 111 (60-115) mg/dL Lactic Acid 1.6 (0.5-2.0) mmol/L Calcium 8.8 (8.4-10.2) mg/dL Magnesium 1.6 (1.6-2.6) mg/dL Total Bilirubin 0.8 (0.0-1.0) mg/dL AST 14 (5-37) U/L ALT 12 (0-40) U/L Alkaline Phosphatase 103 (39-117) U/L Troponin I High Sens < 2.7 (<3.5-35.0) ng/L B-Natriuretic Peptide 48 (<100) pg/mL Total Protein 6.7 (6.5-8.0) g/dL Albumin 4.0 (3.5-5.0) g/dL Lipase 10 (8-78) U/L COVID-19 ([facility]) Negative (Negative) COVID-19 Clin Com See Note Discharge Plan Discharge Clinical Impression: COPD (chronic obstructive pulmonary disease), Pneumonia Patient Disposition: Home, Self-Care Instructions: COPD (Chronic Obstructive Pulmonary Disease) (DC), Community Acquired Pneumonia (ED) Additional Instructions: Stop smoking Continue nebulizing treatment/inhaler every 4-6 hours as needed Prednisone and antibiotic as prescribed Cough syrup as prescribed Tylenol/Motrin for fever Report to the ER if increased shortness of breath Prescriptions: New prednisone 20 mg tablet 40 mg PO DAILY Qty: 10 0RF codeine-guaifenesin 10-100 mg/5 mL liquid 10 ml PO Q6H PRN (Reason: cough) Qty: 237 0RF cefuroxime axetil 500 mg tablet 500 mg PO BID 10 Days Qty: 20 0RF doxycycline hyclate 100 mg tablet 100 mg PO BID Qty: 20 0RF No Action (DME) shower chair See Rx Instructions .Route .MEDSUPPLY Qty: 1 0RF Rx Instructions: As directed miscellaneous medical supply Kit 1 ea miscellaneous QID PRN (Reason: shortness of breath or wheezing) 360 Days Qty: 1 2RF Rx Instructions: 1 kit for nebulizer, mouthpiece, tubing & filter for 12 months to use QID PRN for shortness of breath or wheezing albuterol sulfate 2.5 mg /3 mL (0.083 %) solution for nebulization 2.5 mg inhalation QID PRN (Reason: shortness of breath or wheezing) 30 Days Qty: 180 1RF fluticasone propion-salmeterol [Wixela Inhub] 250-50 mcg/dose blister with device 1 inh inhalation BID 30 Days Qty: 60 11RF atorvastatin 80 mg tablet 80 mg PO BEDTIME 90 Days Qty: 90 2RF nicotine (polacrilex) 2 mg gum 2 mg buccal Q4-8H PRN (Reason: nicotine cravings) Qty: 50 0RF tamsulosin 0.4 mg capsule 0.4 mg PO BEDTIME 90 Days Qty: 90 3RF omeprazole 20 mg capsule,delayed release(DR/EC) 20 mg PO BID 90 Days Qty: 180 3RF lidocaine 4 % adhesive patch,medicated 1 patch topical DAILY PRN (Reason: pain) Qty: 30 0RF fluticasone propionate 50 mcg/actuation spray,suspension 2 spray intranasal DAILY Qty: 3 3RF Rx Instructions: administer into each nostril (DME) WALKER See Rx Instructions .Route .MEDSUPPLY Qty: 1 0RF Rx Instructions: As directed varenicline [Chantix Continuing Month Box] 1 mg tablet 1 mg PO BID Qty: 56 1RF meloxicam 15 mg tablet 15 mg PO DAILY Qty: 20 0RF gabapentin 300 mg capsule 300 mg PO TID nystatin 100,000 unit/gram ointment 1 appl topical TID 30 Days Qty: 30 0RF Zeasorb AF 2 % powder 1 appl topical DAILY Qty: 71 0RF hydrocortisone [Proctosol HC] 2.5 % cream with perineal applicator 1 appl NE BID-QID PRN (Reason: itching) Qty: 30 1RF Eliquis 2.5 mg tablet 2.5 mg PO BID oxycodone-acetaminophen [Percocet] 5-325 mg tablet 1 tab PO Q4H PRN Patient Comments: Dr. Ramakrishna Barron diclofenac sodium [Arthritis Pain (diclofenac)] 1 % gel 2 g topical QID PRN (Reason: pain) Qty: 100 0RF tizanidine 2 mg tablet 2 mg PO Q8H PRN (Reason: muscle spasticity) Qty: 20 0RF alprazolam 0.25 mg tablet 0.25 mg PO BEDTIME PRN (Reason: anxiety) Qty: 20 2RF prednisone 10 mg tablet 10 mg PO DAILY Qty: 28 0RF Rx Instructions: 6 pills by mouth day 1, 6 pills by mouth day 2, 5 pills by mouth day 3, 4 pills by mouth day 4, 3 pills by mouth day 5, 2 pills by mouth day 6, 1 pill by mouth day 7 and 1 pill by mouth day 8. albuterol sulfate 90 mcg/actuation HFA aerosol inhaler 2 puff PO Q6H PRN (Reason: bronchospasm) Qty: 8.5 3RF sulfamethoxazole-trimethoprim [Bactrim DS] 800-160 mg tablet 1 tab PO BID 7 Days Qty: 14 0RF Interventions: ED Discharge Assessment Last Done: 07/16/23 19:07 Discharge Date/Time: 07/16/23 19:08
--- NOTE | 2023-07-16 12:01 | ECG_ITS ---
Test Reason : sob,cp Blood Pressure : / mmHG Vent. Rate : 100 BPM Atrial Rate : 100 BPM P-R Int : 140 ms QRS Dur : 076 ms QT Int : 336 ms P-R-T Axes : 069 023 043 degrees QTc Int : 433 ms Normal sinus rhythm Normal ECG When compared with ECG of 21-NOV-2022 17:19, T wave amplitude has increased in Anterior leads Referred By: Arianna Johnson Electronically Signed By:MARIANELA DOTY
[2023-07-16 12:30] LABS: MANUAL DIFF FLAG NO
[2023-07-16 12:32] LABS: Basophils Percent Auto 0.2 % (0-2); Eosinophils Percent Auto 0.1 % (0-4); Hematocrit 43.9 % (42.0-52.0); Hemoglobin 15.7 g/dl (14.0-18.0); Imm Gran Abs Auto 0.04 X10*3/uL (0.00-0.03); Imm Gran Pct Auto 0.3 % (0.0-0.4); Lymphocytes Absolute Auto 0.5 X10*3/uL (1.2-4.9); Lymphocytes Percent Auto 3.5 % (20-40); Mean Corpuscular HGB Conc 35.8 g/dl (31.0-36.0); Mean Corpuscular Hemoglobin 34.4 pg (27.0-33.0); Mean Corpuscular Volume 96.1 fL (80.0-98.0); Mean Platelet Volume 9.2 fL (9.4-12.4); Monocytes Absolute Auto 0.9 X10*3/uL (0.1-1.2); Monocytes Percent Auto 6.4 % (2-11); Neutrophils Absolute Auto 12.5 x10*3/uL (2.0-8.3); Neutrophils Percent Auto 89.5 % (45-73); Platelet Count 209 X10*3/uL (160-400); Red Blood Count 4.57 X10*6/uL (4.60-5.80); Red Cell Distribution Width 14.6 % (11.0-16.0)
[2023-07-16 12:47] LABS: Alanine Aminotransferase 12 U/L (0-40); Alkaline Phosphatase 103 U/L (39-117); Anion Gap 12 (12-20); Aspartate Amino Transferase 14 U/L (5-37); Bilirubin Total 0.8 mg/dL (0.0-1.0); Blood Urea Nitrogen 9 mg/dL (9-16); Calcium 8.8 mg/dL (8.4-10.2); Carbon Dioxide 23 mmol/L (22-29); Chloride 104 mmol/L (96-108); Creatinine Clr Calc Pharmacy 108.2; Estimated Glomerular Filt Rate > 60; Glucose Random 111 mg/dL (60-115); Lipase 10 U/L (8-78); Magnesium 1.6 mg/dL (1.6-2.6); Potassium 4.8 mmol/L (3.3-5.1); Sodium 134 mmol/L (135-145); Total Protein 6.7 g/dL (6.5-8.0)
[2023-07-16 12:52] LABS: B Type Natriuretic Peptide 48 pg/mL (<100)
[2023-07-16 12:55] LABS: Troponin-I High Sensitivity < 2.7 ng/L (<3.5-35.0)
[2023-07-16 13:02] LABS: COVID-19 Test Negative (Negative); IDNOW Serial# BCCEAD1C
[2023-07-16 15:18] VITALS: BP 157/72; PULSE 93; RESP 23; TEMP 36.9; O2SAT 94
[2023-07-16 16:00] VITALS: BP 108/59; PULSE 99; RESP 14; TEMP 36.7; O2SAT 94
[2023-07-16 16:08] LABS: Lactic Acid 1.6 mmol/L (0.5-2.0)
--- NOTE | 2023-07-16 16:21 | PC.NURSE ---
First set of cultures obtained, PCT to obtain second set. Antibiotics to be hung after BC obtained.
[2023-07-16] MEDS: cefTRIAXone sodium 1 GM in 0.9 % Sodium Chloride 50 ML IV (16:54)
--- NOTE | 2023-07-16 17:00 | PC.NURSE ---
Patient desating on room air, O2 applied to patient with good effect.
[2023-07-16] MEDS: Albuterol Sulfate 2.5 MG, Albuterol/Iprat 2.5/0.5MG 3 ML 3 ML INHALE (17:31)
[2023-07-16 17:33] VITALS: PULSE 99; RESP 17; O2SAT 93
[2023-07-16] MEDS: Acetaminophen 325 MG TABLET 650 MG PO (18:31)
[2023-07-16] MEDS: methylPREDNISolone Sod Succ 125 MG/2 ML VIAL IVPUSH (18:32)
[2023-07-16] MEDS: Ketorolac Tromethamine 30 MG/ML VIAL IVPUSH (18:32)
[2023-07-16 19:02] VITALS: BP 130/66; PULSE 103; RESP 20; O2SAT 94
[2023-07-16] MEDS: Doxycycline Monohydrate 100 MG CAPSULE PO (19:03)
[2023-07-16] MEDS: guaiFEN/Codeine SF 200/20/10ML 10 ML LIQUID PO (19:03)
== END 2023-07-16 19:08 | disposition home or self-care (01) ==
PROVIDERS: Physician Assistant; Physician Assistant Medical; Emergency Provider Internal Medicine; PCP Internal Medicine
DX: J18.9 Pneumonia, unspecified organism (principal); J44.9 Chronic obstructive pulmonary disease, unspecified; R07.89 Other chest pain; R06.02 Shortness of breath; R51.9 Headache, unspecified; Z20.822 Contact with and (suspected) exposure to COVID-19; Z20.828 Contact with and (suspected) exposure to other viral communicable diseases; Z79.899 Other long term (current) drug therapy
CPT/HCPCS: 36415; 71045; 80053; 83605; 83690; 83735; 83880; 84484; 85025; 87040; 87635; 93005; 94640; 99284; 99285; J0696; J1885; J2930

== ENCOUNTER → 2023-08-18 13:20 | Outpatient (BNVA) | payer MEDICARE, MEDICAID, SELFPAY | PROVIDERS: PCP Internal Medicine; Visit Provider Orthopaedic Surgery ==

== ENCOUNTER 2023-08-19 13:31 | Outpatient (AMB) | payer MEDICARE, SELFPAY ==
[2023-08-19 13:41] VITALS: BP 140/88; PULSE 106; O2SAT 92; BMI 29.6
--- NOTE | 2023-08-19 13:41 | MHC.PC.OV ---
Vital Signs 08/19/23 13:41 08/19/23 14:06 Height 5 ft 8 in Weight 195 lb BMI 29.6 BP 140/88 H 110/60 Blood Pressure Location Lt brachial Rt brachial Position Sitting Sitting Pulse 106 H Pulse Source Pulse Oximeter Pulse Oximetry (%) 92 Oxygen Delivery Method Room Air Intake Visit Reasons: total hip replacement Allergies dextromethorphan [From NYQUIL] Allergy (Unknown, Verified 08/19/23 13:42) HIVES divalproex sodium [Depakote] Allergy (Unknown, Verified 08/19/23 13:42) Unknown doxylamine [From NYQUIL] Allergy (Unknown, Verified 08/19/23 13:42) HIVES morphine [MORPHINE] Allergy (Unknown, Verified 08/19/23 13:42) TACHYCARDIA pseudoephedrine [From DAYQUIL SINUS PRESSURE/PAIN] Allergy (Unknown, Verified 08/19/23 13:42) HIVES rosuvastatin Allergy (Unknown, Verified 08/19/23 13:42) sob Medication List - Last Reconciled 08/19/23 by Zuri Feldman MD [shower chair As directed] albuterol sulfate 2.5 mg (3 mL) inhalation QID PRN 30 days albuterol sulfate 90 mcg/actuation 2 puffs PO Q6H PRN NS apixaban (Eliquis) 2.5 mg PO BID atorvastatin 80 mg PO BEDTIME 90 days fluticasone propion-salmeterol 250-50 mcg/dose (Wixela Inhub) 1 inh inhalation BID 30 days fluticasone propionate 50 mcg/actuation 2 sprays intranasal DAILY gabapentin 300 mg PO TID meloxicam 15 mg PO DAILY miconazole nitrate 2% (Zeasorb AF) 1 appl topical DAILY miscellaneous medical supply 1 ea miscellaneous QID PRN 12 months nicotine (polacrilex) 2 mg buccal Q4-8H PRN nystatin 1 appl topical TID 30 days omeprazole 20 mg PO BID 90 days oxycodone-acetaminophen 5-325 mg (Percocet) 1 tab PO Q4H PRN tizanidine 2 mg PO Q8H PRN varenicline (Chantix Continuing Month Box) 1 mg PO BID [WALKER As directed] Tobacco use date assessed: 02/14/23 Fall risk assessment: No Falls in past year Last assessed Fall Risk: 08/19/23 Dental Screening Dental Screen Date: 08/19/23 Did you have a dental visit in the last 12 months?: Yes Did you have a dental problem in the last 6 months where you did not have access to dental care?: No Was dental information given to patient?: Patient has dentist HPI 09/16-R total hip replacement HPI Details 63-year-old male smoker with multiple medical problems patient has a history of stroke BPH, impaired glucose tolerance, hypercholesterolemia, GERD, COPD, generalized anxiety disorder. Patient has a history of left subclavian artery occlusion status post bypass was seen vascular surgeon placed on anticoagulation. Patient comes in for preoperative evaluation for right hip replacement.. Patient is scheduled to have a right hip replacement 09/16/2023. Patient also was recently in the hospital July 16 for shortness of breath diagnosis of pneumonia and COPD placed on antibiotic as well as prednisone. trying to stop smoking and placed on gum and not covered. Bryan also has a scehdule with pulmonary today [facility] Medical History SOB (shortness of breath) Tinea cruris Pes anserinus bursitis of left knee Upper respiratory tract infection Rib fractures Annual physical exam Contusion of chest Back strain Osteoarthritis of right hip Right hip pain Right middle lobe pulmonary infiltrate Sinus congestion Overweight (BMI 25.0-29.9) Annual physical exam Urgency of micturition Carpal tunnel syndrome Femoral fracture Pulmonary nodule BPH (benign prostatic hyperplasia) Seizure disorder Insomnia Vitamin D deficiency Impaired glucose tolerance Hypercholesterolemia Anxiety GERD (gastroesophageal reflux disease) COPD (chronic obstructive pulmonary disease) Polysubstance abuse Left subclavian artery occlusion Brain aneurysm CVA (cerebral vascular accident) Vocal cord polyp Vitamin B12 deficiency Surgical History Stenosis of subclavian bypass History of surgery History of orthopedic surgery History of knee replacement procedure of right knee Family History Father CAD (coronary artery disease) Kidney malignancy Mother Myocardial infarction Brother Prostate cancer Social History (Updated 08/19/23 @ 14:10 by Zuri Feldman MD) Housing: Other Housing Other:: Trailer Alcohol intake: current Alcohol intake frequency: 0-2 drinks per day Alcohol type: beer Patient Tobacco Use Status: Current everyday Tobacco user Tobacco use type: Cigarette Cigarettes Per Day: 5 Years Smoked: not ready to stop 12/2022, e-Cigarette/Vaping Use: Never Used Second Hand Smoke Exposure: No service: No Current occupational status: unemployed Cognitive needs: No Hearing needs: No Vision needs: Yes Questionnaire PHQ-9 Over the last 2 weeks, how often have you been bothered by any of the following problems? 1. Little interest or pleasure in doing things: not at all 2. Feeling down, depressed, or hopeless: not at all 3. Trouble falling or staying asleep, or sleeping too much: not at all 4. Feeling tired or having little energy: not at all 5. Poor appetite or overeating: not at all 6. Feeling bad about yourself - or that you are a failure or have let yourself or your family down: not at all 7. Trouble concentrating on things, such as reading the newspaper or watching television: not at all 8. Moving or speaking so slowly that other people could have noticed. Or the opposite - being so fidgety or restless that you have been moving around a lot more than usual: not at all 9. Thoughts that you would be better off or of hurting yourself in some way: not at all Total score: 0 Depression Screening Interpretation: Negative Depression Screening Done: Yes Source: Developed by Drs. Basilio Esteves, Zev Israel and colleagues, with an educational teodoro from [employer]. Thrive Questionnaire Date Thrive assessed: 12/02/22 AUDIT C Alcohol Use Questionnaire (AUDIT-C) 1. How often do you have a drink containing alcohol?: 4 or more times a week 2. How many drinks containing alcohol do you have on a typical day when you are drinking?: 3 or 4 3. How often do you have six or more drinks on one occasion?: Never Total Score: 5 Score Reviewed/Action Taken: Yes DANIE-7 AMB Questionnaire DANIE-7 Date DANIE - 7 assessed: 12/02/22 Source: Developed by Drs. Basilio Esteves, Gina Sales, Zev Ambriz and colleagues, with an educational teodoro from [employer]. Review of Systems Const Denies poor appetite and Denies weakness Eyes Denies no additional complaints ENT Reports Normal hearing present, Denies dizziness, Denies nasal congestion, Denies tinnitus and Denies sore throat Card Denies chest pain, Denies syncope, Denies rapid heart rate and Denies dyspnea Resp Denies cough and Denies dyspnea GI Denies change in stool character, Reports constipation, Denies diarrhea, Denies nausea and Denies vomiting Denies dysuria and Denies urinary frequency Neuro Reports Normal hearing present, Denies confusion, Denies dizziness, Denies syncope and Denies weakness Psych Denies confusion Physical exam (Primary Care) Vital Signs: Last Vital Signs Pulse 106 H 08/19/23 13:41 BP 140/88 H 08/19/23 13:41 Pulse Ox 92 08/19/23 13:41 Oxygen Delivery Method Room Air 08/19/23 13:41 BMI result Body Mass Index 29.6 Tobacco/Smoking Status: Tobacco use Status Tobacco use date assessed 02/14/23 08/19/23 13:48 Patient Tobacco Use Status Current everyday Tobacco 08/19/23 13:48 Tobacco use type Cigarette 08/19/23 13:48 e-Cigarette/Vaping Use Never Used 08/19/23 13:48 PHQ-9: PHQ-9 Score PHQ-9: Total score 0 08/19/23 13:48 Depression Screening Interpretation: Negative Thrive Assessment: Date of Thrive Assessment Date Thrive assessed 12/02/22 08/19/23 13:48 Const General: No confusion Orientation/consciousness: No confusion Eyes Conjunctivae: conjunctivae normal Resp Auscultation: clear to auscultation bilaterally Cardio Rate: regular rate Rhythm: regular rhythm GI Inspection: Yes normal to inspection Neuro General: No confusion Cranial nerves: Yes Normal hearing present Extrem General: Yes normal to inspection and No edema Assessment and Plan Assessment & Plan (1) Preop exam for internal medicine: Code(s): Z01.818 - Encounter for other preprocedural examination Plan: Evaluate EKG and blood work. Both were within normal limits. Patient is going to the pulmonary this afternoon for clearance. At the present no further workup needed this time . Patient is advised to stop smoking . Nicotine gum sent in. Advised to hold the anticoagulation medication 2 days before the procedure a. Discussed about holding anti-inflammatories like Aleve, Motrin, naproxen, meloxicam and the like 1 week before the procedure. Thank you very much for letting me participate in the care of this patient. (2) Tobacco abuse: Code(s): Z72.0 - Tobacco use Plan: Patient has been strongly advised to stop! (3) COPD (chronic obstructive pulmonary disease): Code(s): J44.9 - Chronic obstructive pulmonary disease, unspecified Plan: Stop smoking! Continue with the inhalers (4) GERD (gastroesophageal reflux disease): Code(s): K21.9 - Gastro-esophageal reflux disease without esophagitis Qualifiers: Esophagitis presence: without esophagitis Qualified Code(s): K21.9 - Gastro-esophageal reflux disease without esophagitis Plan: Avoid the foods that causes that usually spicy foods, tomato products, juices, coffee, soda and foods that your sensitive to. After eating do not lie down, allow 3-4 hours before in lie down. And keep the head of bed above 30 degrees to avoid the acid from going up. (5) Hypercholesterolemia: Code(s): E78.00 - Pure hypercholesterolemia, unspecified Plan: Avoid fried foods, chicken skin, eggs, butter margarine, pastries and meat. Be it pork or beef they have a lot of cholesterol LDL goal of less than 70 and triglyceride less than 150. Patient on atorvastatin 80 mg once a day (6) Left subclavian artery occlusion: Comment: 2016 with bypass May [address] Dr. Durbin Code(s): I70.8 - Atherosclerosis of other arteries Plan: Continue with anticoagulation on Eliquis (7) Generalized anxiety disorder: Code(s): F41.1 - Generalized anxiety disorder Plan: Avoid the foods that causes that usually spicy foods, tomato products, juices, coffee, soda and foods that your sensitive to. After eating do not lie down, allow 3-4 hours before in lie down. And keep the head of bed above 30 degrees to avoid the acid from going up. (8) Osteoarthritis of right hip: Code(s): M16.11 - Unilateral primary osteoarthritis, right hip Medications: New psyllium husk mix into at least 4 oz water or juice before administering 1 tsp PO DAILY 480 grams 2RF Refilled nicotine (polacrilex) 2 mg buccal Q4-8H PRN 50 ea 0RF nicotine cravings Coding Level of Care Code Est Pt Level 4 (98948) Diagnoses Preop exam for internal medicine Z01.818 Tobacco abuse Z72.0 Pulmonary emphysema, unspecified emphysema type J44.9 Gastroesophageal reflux disease without esophagitis K21.9 Esophagitis presence: without esophagitis Hypercholesterolemia E78.00 Left subclavian artery occlusion I70.8 Generalized anxiety disorder F41.1 Osteoarthritis of right hip M16.11
[2023-08-19 14:06] VITALS: BP 110/60
== END 2023-08-19 14:19 | disposition home or self-care (01) ==
PROVIDERS: PCP Internal Medicine; Visit Provider Internal Medicine
DX: Z01.818 Encounter for other preprocedural examination (principal); Z72.0 Tobacco use; J44.9 Chronic obstructive pulmonary disease, unspecified; K21.9 Gastro-esophageal reflux disease without esophagitis; E78.00 Pure hypercholesterolemia, unspecified; I70.8 Atherosclerosis of other arteries; F41.1 Generalized anxiety disorder; M16.11 Unilateral primary osteoarthritis, right hip
CPT/HCPCS: 99214

== ENCOUNTER 2023-08-19 14:27 | Outpatient (AMB) | payer MEDICARE, SELFPAY ==
[2023-08-19 14:31] VITALS: BP 102/50; PULSE 103; O2SAT 94
--- NOTE | 2023-08-19 14:31 | MHC.OFFVIS ---
Intake Vital Signs 08/19/23 14:31 Height 5 ft 8 in Weight 197 lb BMI 30.0 BP 102/50 L Blood Pressure Location Lt brachial Position Sitting Pulse 103 H Pulse Source Pulse Oximeter Pulse Oximetry (%) 94 Oxygen Delivery Method Room Air Intake Visit Reasons: pre-op total hip Intake Note: pt is here for pre-op clearance surgery 09/16/[address] Mobley. Some coughing, had pneumonia few weeks ago and feeling better. English And Reading Instructor Required: No Allergies dextromethorphan [From NYQUIL] Allergy (Unknown, Verified 08/19/23 14:55) HIVES divalproex sodium [Depakote] Allergy (Unknown, Verified 08/19/23 14:55) Unknown doxylamine [From NYQUIL] Allergy (Unknown, Verified 08/19/23 14:55) HIVES morphine [MORPHINE] Allergy (Unknown, Verified 08/19/23 14:55) TACHYCARDIA pseudoephedrine [From DAYQUIL SINUS PRESSURE/PAIN] Allergy (Unknown, Verified 08/19/23 14:55) HIVES rosuvastatin Allergy (Unknown, Verified 08/19/23 14:55) sob Medication List - Last Reconciled 08/19/23 by Rey Oneil MD [shower chair As directed] albuterol sulfate 2.5 mg (3 mL) inhalation QID PRN 30 days albuterol sulfate 90 mcg/actuation 2 puffs PO Q6H PRN NS apixaban (Eliquis) 2.5 mg PO BID atorvastatin 80 mg PO BEDTIME 90 days fluticasone propion-salmeterol 250-50 mcg/dose (Wixela Inhub) 1 inh inhalation BID 30 days fluticasone propionate 50 mcg/actuation 2 sprays intranasal DAILY gabapentin 300 mg PO TID meloxicam 15 mg PO DAILY miconazole nitrate 2% (Zeasorb AF) 1 appl topical DAILY miscellaneous medical supply 1 ea miscellaneous QID PRN 12 months nicotine (polacrilex) 2 mg buccal Q4-8H PRN nystatin 1 appl topical TID 30 days omeprazole 20 mg PO BID 90 days oxycodone-acetaminophen 5-325 mg (Percocet) 1 tab PO Q4H PRN psyllium husk 1 tsp PO DAILY tizanidine 2 mg PO Q8H PRN varenicline (Chantix Continuing Month Box) 1 mg PO BID [WALKER As directed] Do you need a note to return to daycare/school/sports/work: No HPI pre-op total hip HPI Details THIS 63 YEARS OLD GENTLEMAN, IS HERE FOR PREOP PULMONARY CLEARANCE, HE WOULD BE HAVING RIGHT HIP REPLACEMENT IN THE NEXT FEW WEEKS.. HE HAS A LONGSTANDING HISTORY OF SMOKING, 1 PACK OF CIGARETTES A DAY. HE HAS BEEN TREATED FOR CHRONIC OBSTRUCTIVE PULMONARY DISEASE, LAST TIME I SAW HIM WAS IN 2019. AFTERWARDS HE IS BEING FOLLOWED BY HIS PRIMARY CARE PHYSICIAN. AT PRESENT HIS PULMONARY MEDS INCLUDE, WIXELA 250-50 1 INHALATION B.I.D. AND ALBUTEROL HFA 2 PUFFS Q 6 HOURS P.R.N.. HE ALSO HAS MILD NASAL CONGESTION FOR WHICH HE USES FLONASE 2 SPRAY EACH NOSTRIL DAILY OFF AND ON. TODAY HE CLAIMS THAT HE HAS ONLY MILD MORNING COUGH, HE DENIES GETTING SHORT OF BREATH WITH HIS USUAL WALKING. BECAUSE OF HIS PROBLEM HE IS NOT ABLE TO WALK FAST ANYWAY. HE DENIES ANY ACTIVE WHEEZING. HE WAS TREATED FOR POSSIBLE PNEUMONIA A FEW WEEKS AGO, FROM WHICH HE HAS RECOVERED. LAST CHEST X-RAY ON 07/16 SHOWED THAT HE HAD LEFT BASILAR ATELECTASIS OR PNEUMONIA. HE HAS HAD A LINEAR ATELECTASIS IN THE RIGHT MID LUNG. HIS CURRENT LEVEL OF SMOKING IS 5 CIGARETTES A DAY AND HE IS TRYING TO QUIT COMPLETELY IN THE NEXT [address] [facility] Medical History Atelectasis of left lung COPD (chronic obstructive pulmonary disease) Smoker SOB (shortness of breath) Tinea cruris Pes anserinus bursitis of left knee Upper respiratory tract infection Rib fractures Annual physical exam Contusion of chest Back strain Osteoarthritis of right hip Right hip pain Right middle lobe pulmonary infiltrate Sinus congestion Overweight (BMI 25.0-29.9) Annual physical exam Urgency of micturition Carpal tunnel syndrome Femoral fracture Pulmonary nodule BPH (benign prostatic hyperplasia) Seizure disorder Insomnia Vitamin D deficiency Impaired glucose tolerance Hypercholesterolemia Anxiety GERD (gastroesophageal reflux disease) COPD (chronic obstructive pulmonary disease) Polysubstance abuse Left subclavian artery occlusion Brain aneurysm CVA (cerebral vascular accident) Vocal cord polyp Vitamin B12 deficiency Surgical History Stenosis of subclavian bypass History of surgery History of orthopedic surgery History of knee replacement procedure of right knee Family History Father CAD (coronary artery disease) Kidney malignancy Mother Myocardial infarction Brother Prostate cancer Social History Housing: Other Housing Other:: Trailer Alcohol intake: current Alcohol intake frequency: 0-2 drinks per day Alcohol type: beer Patient Tobacco Use Status: Current everyday Tobacco user Tobacco use type: Cigarette Cigarettes Per Day: 5 Years Smoked: not ready to stop 12/2022, e-Cigarette/Vaping Use: Never Used Second Hand Smoke Exposure: No service: No Current occupational status: unemployed Cognitive needs: No Hearing needs: No Vision needs: Yes Review of Systems Const All systems reviewed & are unremarkable except as noted in HPI and below Eyes Reports no additional complaints ENT Reports no additional complaints Card Denies chest pain, Denies irregular heart rhythm and Denies leg edema Resp Reports as per HPI GI Reports constipation and Reports heartburn Reports no additional complaints Musc Reports arthralgias (HIPS) Skin/Breast Reports system reviewed and no additional complaints, except as documented Neuro Reports no additional complaints Psych Reports no additional complaints Endo Reports no additional complaints Sarkis/Lymph Reports no additional complaints Physical Exam Vital Signs: Last Vital Signs Pulse 103 H 08/19/23 14:31 BP 102/50 L 08/19/23 14:31 Pulse Ox 94 08/19/23 14:31 Oxygen Delivery Method Room Air 08/19/23 14:31 BMI result Body Mass Index 30.0 Const General: comfortable, no acute distress, alert and awake Orientation/consciousness: patient oriented x3 HEENT Head: Yes normal to inspection General nose exam: No nasal polyps present and No nasal discharge present Face and sinus: Yes sinuses nontender Mouth: oropharynx normal Throat: Yes posterior oropharynx normal Eyes General: appearance normal, both eyes and all related structures Neck Other: SCAR ON THE LEFT SIDE FROM PREVIOUS CAROTID ENDARTERECTOMIES Neck: Yes normal visual inspection, Yes no lymphadenopathy, Yes trachea midline and Yes no JVD Thyroid: Thyroid normal Chest Chest palpation & inspection: normal inspection of the chest, normal palpation of entire chest wall and no tenderness Resp Other: PERCUSSION NOTE IS RESONANT, BREATH SOUNDS ARE SLIGHTLY DISTANT AND ESPECIALLY DECREASED OVER. THE BASILAR AREAS NO CREPITATIONS OR WHEEZES. ARE HEARD TODAY Cardio Palpation: normal PMI Rate: regular rate Rhythm: regular rhythm Heart sounds: no gallops and no murmurs GI Palpation (GI): Soft to palpation, nontender, No hepatosplenomegaly present and no masses Auscultation: normal bowel sounds Back/Spine/Pelvis Thoracic/Lumbar Spine: thoracic and lumbar spine normal to inspection Skin General skin exam: no rashes or lesions noted Neuro General: patient oriented x3 and no focal motor deficits Cranial nerves: Yes CN's II-XII intact bilaterally Extrem General: Yes normal to inspection, Yes no clubbing, cyanosis or edema and Yes no calf tenderness Psych Appearance: grossly normal and well kempt Speech and movement: Normal speech and movement present Office Procedures Spirometry Testing Spirometry Comments: Spirometry done in the office, Dr. Oneil has the results results scanned to his chart. 33420- Spirometry Results Reviewed Results Reviewed: CHEST XRAY TODAY : Chronic scarring or atelectasis right upper lobe and right midlung. No acute process seen. Previously visualized left lung base patchy airspace disease has resolved. Assessment & Plan Assessment & Plan (1) Smoker: Comment: HE DOES HAVE LONGSTANDING HISTORY OF SMOKING, TRYING TO CUT IT DOWN NOW AND QUIT COMPLETELY IN THE NEXT FEW WEEKS. USING NICOTINE BUCCAL LOZENGES Code(s): F17.200 - Nicotine dependence, unspecified, uncomplicated (2) COPD (chronic obstructive pulmonary disease): Comment: PATIENT HAS MILD TO MODERATE DEGREE OF CHRONIC OBSTRUCTIVE PULMONARY DISEASE. SEEMS TO BE. STABLE AND CONTROLLED AT THIS TIME TX : WIXELA 250-50 1 INHALATION B.I.D. ALBUTEROL HFA 2 PUFFS Q 4-6 HOURS P.R.N. ADVISED TO DO DEEP BREATHING. EXERCISES 3 TIMES A DAY Code(s): J44.9 - Chronic obstructive pulmonary disease, unspecified (3) Atelectasis of left lung: Comment: CHEST X-RAY ON 07/16, SHOWED CHRONIC LINEAR ATELECTASIS RIGHT MID LUNG, ALSO SHOWED ATELECTASIS/ VS PNEUMONIA IN THE LEFT BASE., ON XRAY TODAY , IT HAS RESOLVED . WAS TREATED WITH A COURSE OF ANTIBIOTICS AND CLINICALLY IT SEEMS TO HAVE CLEARED. CHEST X-RAY, SEE THE REPORT Code(s): J98.11 - Atelectasis Plan: THIS GENTLEMAN WITH HISTORY OF SMOKING, DOES HAVE MILD TO MODERATELY SEVERE OBSTRUCTIVE AIRWAY DISORDER, COMPARED TO SPIROMETRY ON 11/19/2019 THE NUMBERS ARE SLIGHTLY DECREASED.. CLINICALLY HIS COPD IS CONTROLLED AND STABLE. IT IS EXPECTED TO IMPROVE ACTUALLY WHEN HE STOP SMOKING COMPLETELY. FROM PULMONARY POINT OF VIEW I THINK HE IS OKAY TO UNDERGO HIP SURGERY, . NO CONTRAINDICATION IS NEEDED I HAVE ADVISED HIM STRONGLY TO QUIT SMOKING BEFORE SURGERY, AND ALSO KEEP ON DOING DEEP BREATHING EXERCISES. Orders: Orders AMB Spirometry Testing 08/19/23 J44.9 - Chronic obstructive pulmonary disease, unspecified XR chest 2V 08/19/23 J44.9 - Chronic obstructive pulmonary disease, unspecified, J98.11 - Atelectasis Coding Level of Care Code Est Pt Level 4 (46767) Diagnoses Smoker F17.200 COPD (chronic obstructive pulmonary disease) J44.9 Atelectasis of left lung J98.11 CPT Codes Spirometry - CPT: 44110- Spirometry ([id number])
== END 2023-08-19 15:13 | disposition home or self-care (01) ==
PROVIDERS: PCP Internal Medicine; Visit Provider Internal Medicine
DX: J44.9 Chronic obstructive pulmonary disease, unspecified (principal)
CPT/HCPCS: 94010; 99214

== ENCOUNTER 2023-08-19 14:27 | Outpatient (REF) | payer MEDICARE, SELFPAY ==
--- NOTE | ~2023-08-19 | XR_ITS ---
EXAMINATION: XR CHEST CLINICAL INFORMATION: COPD. COMPARISON: 06/26/2023 chest x-ray. TECHNIQUE: 2 views of the chest were obtained. FINDINGS: There is chronic scarring atelectasis right upper lobe and right midlung. Rest of lungs are clear and expanded. Heart size and pulmonary vascularity is normal. There are surgical [place] in the left superior mediastinum from previous intervention. No gross bony abnormality. XR/XR chest 2V IMPRESSION: Chronic scarring or atelectasis right upper lobe and right midlung. No acute process seen. Previously visualized left lung base patchy airspace disease has resolved.
== END 2023-08-19 14:28 | disposition home or self-care (01) ==
LOC: HO.HMGCX 14:27
PROVIDERS: PCP Internal Medicine; Visit Provider Internal Medicine
DX: Z01.811 Encounter for preprocedural respiratory examination (principal); J44.9 Chronic obstructive pulmonary disease, unspecified; J98.11 Atelectasis; F17.210 Nicotine dependence, cigarettes, uncomplicated
CPT/HCPCS: 71046; 94010; 99212

== ENCOUNTER 2023-08-21 10:49 | Outpatient (REF) | payer MEDICARE, SELFPAY ==
[2023-08-21 14:36] LABS: PSA,Total (Free>4and<10) 5.58 ng/mL (0.00-4.00)
[2023-08-22 11:09] LABS: Free Prostate Spec Ag 0.3 ng/mL; Percent Free Prostate Spec Ag 6 % (calc) (>25); Prostate Specific Ag Total 4.9 ng/mL (< OR = 4.0)
== END 2023-08-21 10:50 | disposition home or self-care (01) ==
LOC: HO.HMGCLDS 10:49
PROVIDERS: PCP Internal Medicine; Visit Provider Internal Medicine
DX: R97.20 Elevated prostate specific antigen [PSA] (principal); Z12.5 Encounter for screening for malignant neoplasm of prostate
CPT/HCPCS: 36415; 84153; 84154

== ENCOUNTER → 2023-09-08 13:38 | Outpatient (BNVA) | payer MEDICARE, MEDICAID, SELFPAY | PROVIDERS: PCP Internal Medicine; Visit Provider Physician Assistant ==

== ENCOUNTER 2023-09-29 14:21 | Outpatient (AMB) | payer MEDICARE, MEDICAID, SELFPAY ==
[2023-09-29 14:25] VITALS: BP 108/62; PULSE 102; O2SAT 94
--- NOTE | 2023-09-29 14:25 | MHC.OFFWIV ---
Intake Vital Signs 09/29/23 14:25 Height 5 ft 8 in Weight 89.358 kg BMI 30.0 BP 108/62 Blood Pressure Location Rt brachial Position Sitting Pulse 102 H Pulse Source Pulse Oximeter Pulse Oximetry (%) 94 Oxygen Delivery Method Room Air Intake Visit Reasons: EP rash groin area [phone] Intake Note: pt is here for c.o rash groin area, 3x weeks getting worse overtime Patient Tobacco Use Status: Current everyday Tobacco user Allergies dextromethorphan [From NYQUIL] Allergy (Unknown, Verified 09/29/23 14:25) HIVES divalproex sodium [Depakote] Allergy (Unknown, Verified 09/29/23 14:25) Unknown doxylamine [From NYQUIL] Allergy (Unknown, Verified 09/29/23 14:25) HIVES morphine [MORPHINE] Allergy (Unknown, Verified 09/29/23 14:25) TACHYCARDIA pseudoephedrine [From DAYQUIL SINUS PRESSURE/PAIN] Allergy (Unknown, Verified 09/29/23 14:25) HIVES rosuvastatin Allergy (Unknown, Verified 09/29/23 14:25) sob Do you need a note to return to daycare/school/sports/work: Yes HPI HPI Comments History of Present Illness Details 63-year-old male history of lipidemia presents to the clinic for a sick visit, patient has a rash to his right groin/right testicle, patient reports it started off as a pimple, he popped and now it is red hot and swollen, also burning. No fevers, chills, numbness, tingling, testicular pain, or discharge, nausea, vomiting, abdominal pain, headache, vision changes, chest pain and shortness of breath. Physical exam of cellulitis to the right groin region. No overlying crepitus. This is likely cellulitis unlikely erysipelas, Reyna gangrene, necrotizing infection. No signs of abscess. Plan at this time to a covered with antibiotics. Educated patient on diagnosis and treatment plan, answered all question, patient verbalizes understanding. At this time patient will be discharged home, advised to return with new or worsening symptoms. Educated on worrisome signs and symptoms and when to return. At this time I feel comfortable discharge home. [facility] Medical History Arthritis Abdominal hernia Numbness Cough Habitual snoring Atelectasis of left lung COPD (chronic obstructive pulmonary disease) Smoker Tinea cruris Pes anserinus bursitis of left knee Upper respiratory tract infection Rib fractures Annual physical exam Contusion of chest Back strain Osteoarthritis of right hip Right hip pain Right middle lobe pulmonary infiltrate SOB (shortness of breath) Sinus congestion Overweight (BMI 25.0-29.9) Urgency of micturition Carpal tunnel syndrome Femoral fracture Pulmonary nodule BPH (benign prostatic hyperplasia) Seizure disorder Insomnia Vitamin D deficiency Impaired glucose tolerance Hypercholesterolemia Anxiety GERD (gastroesophageal reflux disease) Polysubstance abuse Left subclavian artery occlusion Brain aneurysm CVA (cerebral vascular accident) Vocal cord polyp Vitamin B12 deficiency Surgical History History of nasal surgery H/O colonoscopy Stenosis of subclavian bypass History of surgery History of orthopedic surgery History of knee replacement procedure of right knee Family History Father CAD (coronary artery disease) Kidney malignancy Mother Myocardial infarction Brother Prostate cancer Social History Housing: Other Housing Other:: trailer Are you a primary healthcare social worker to a significant other at home: No Do you presently have visiting nurse or other home services: No Alcohol intake: current Alcohol intake frequency: 0-2 drinks per day Alcohol type: beer Patient Tobacco Use Status: Current everyday Tobacco user Tobacco use type: Cigarette Cigarettes Per Day: 4 Years Smoked: not ready to stop 12/2022, e-Cigarette/Vaping Use: Never Used Second Hand Smoke Exposure: No service: No Current occupational status: unemployed Cognitive needs: No Hearing needs: No Vision needs: Yes Review of Systems Const Details: Constitutional : No Weight loss, No Fever, No Chills, No Fatigue, No Malaise ENT/Mouth : No sore throat, No Rhinorrhea Eyes: No Eye Pain, No Swelling, No Redness Cardiovascular : No Chest Pain, No SOB, No Dyspnea on Exertion, No Orthopnea, No Edema, No Palpitations Respiratory : No Cough, No Sputum, No Wheezing Gastrointestinal : No Nausea, No Vomiting, No Diarrhea, No Constipation, No abdominal Pain, No Hematochezia, No Melena Genitourinary : No Dysuria, No Urinary Frequency, No Hematuria, Musculoskeletal : No joint pain, No Myalgias, No Joint Swelling Skin : No Skin Lesions, + rash Neuro : No Weakness, No Numbness, No Dizziness, No Headache Psych : No Anxiety/Panic, No Depression All other systems reviewed and are negative All systems reviewed & are unremarkable except as noted in HPI and below Physical Exam Vital Signs: ss Appearance: Alert.? Oriented X3.? No acute distress.? Head: Normocephalic, atraumatic, no step-offs or deformities Eyes: Pupils equal, round and reactive to light.? ENT: Pharynx normal.? Neck: Normal inspection.? Neck supple.? CVS: Normal heart rate and rhythm.? Pulses normal.? Respiratory: No respiratory distress.? Breath sounds normal.? Abdomen: Soft and nontender.? Skin: Skin warm and dry.? Normal skin color.? Normal skin turgor.?+rash r groin region Extremities: No lower extremity edema.? No calf ttp. 5/5 strength to bilateral upper and lower extremities Neuro: Oriented X 3.? No motor deficit.? No sensory deficit. CN 2-12 intact Assessment & Plan Assessment & Plan (1) Cellulitis: Code(s): L03.90 - Cellulitis, unspecified Plan Take your medications as prescribed. If you were prescribed antibiotics today, it is important that you take your medication to their entirety, do not skip any doses, do not finish them early. Follow-up with your primary care provider this week. Return to the emergency department with new or worsening symptoms. Such as fevers, chills, chest pain, shortness of breath, nausea, vomiting, dizziness, headache, vision changes, lethargy In case of emergency call 911 Medications: New cephalexin 500 mg PO QID 28 caps 0RF 7 days doxycycline hyclate 100 mg PO BID 14 caps 0RF 7 days Coding Level of Care Code Est Pt Level 3 (36252) Diagnoses Cellulitis L03.90
== END 2023-09-29 15:02 | disposition home or self-care (01) ==
PROVIDERS: PCP Internal Medicine; Visit Provider Physician Assistant
DX: L03.90 Cellulitis, unspecified (principal)
CPT/HCPCS: 99213

== ENCOUNTER 2023-10-03 10:21 | Outpatient (REF) | payer MEDICARE, MEDICAID, SELFPAY ==
[2023-10-03 14:29] LABS: PSA,Total (Free>4and<10) 4.62 ng/mL (0.00-4.00)
[2023-10-06 13:18] LABS: Free Prostate Spec Ag 0.3 ng/mL; Percent Free Prostate Spec Ag 8 % (calc) (>25); Prostate Specific Ag Total 3.9 ng/mL (< OR = 4.0)
== END 2023-10-03 10:22 | disposition home or self-care (01) ==
LOC: HO.HMGCLDS 10:21
PROVIDERS: PCP Internal Medicine; Visit Provider Internal Medicine
DX: Z12.5 Encounter for screening for malignant neoplasm of prostate (principal); R97.20 Elevated prostate specific antigen [PSA]
CPT/HCPCS: 36415; 84153; 84154

== ENCOUNTER 2023-10-08 09:56 | Outpatient (AMB) | payer MEDICARE, MEDICAID, SELFPAY ==
--- NOTE | 2023-10-08 09:59 | A.OFFPC_ITS ---
Vital Signs 10/08/23 10:00 Height 5 ft 8 in Weight 198 lb BMI 30.1 BP 116/68 Blood Pressure Location Rt brachial Position Sitting Pulse 99 Pulse Source Pulse Oximeter Pulse Oximetry (%) 95 Oxygen Delivery Method Room Air Intake Visit Reasons: EP rash groin area / Walk in - Allergies dextromethorphan [From NYQUIL] Allergy (Unknown, Verified 10/08/23 10:02) HIVES divalproex sodium [Depakote] Allergy (Unknown, Verified 10/08/23 10:02) Unknown doxylamine [From NYQUIL] Allergy (Unknown, Verified 10/08/23 10:02) HIVES morphine [MORPHINE] Allergy (Unknown, Verified 10/08/23 10:02) TACHYCARDIA pseudoephedrine [From DAYQUIL SINUS PRESSURE/PAIN] Allergy (Unknown, Verified 10/08/23 10:02) HIVES rosuvastatin Allergy (Unknown, Verified 10/08/23 10:02) sob Tobacco use date assessed: 10/08/23 Fall risk assessment: No Falls in past year Last assessed Fall Risk: 10/08/23 HPI EP rash groin area / Walk in 09-29 HPI Details 63-year-old obese male smoker with COPD GERD hypercholesterolemia left subclavian artery occlusion on anticoagulation generalized anxiety disorder coming in for follow-up. Last seen in 08/19/2023 for preoperative evaluation. Review of the notes was seen by the Cardiology and has cleared for right total hip arthroplasty with Dr. Mobley on October 07. Patient was also seen in the Urgent Center in 09/29/2023 for a groin rash started of pimple and popped it now it is red hot and swollen and was given an antibiotic cephalexin and doxycycline. August 19 patient has seen pulmonary moderate degree of COPD on inhalers stable and controlled patient has been cleared to go for the surgery. PAtientcomes in after 2 antibiotics comes back with R groin rash and still persist but better [facility] Medical History (Updated 10/08/23 @ 10:26 by Zuri Feldman MD) Tinea cruris Arthritis Abdominal hernia Numbness Cough Habitual snoring Atelectasis of left lung COPD (chronic obstructive pulmonary disease) Smoker Pes anserinus bursitis of left knee Upper respiratory tract infection Rib fractures Annual physical exam Contusion of chest Back strain Osteoarthritis of right hip Right hip pain Right middle lobe pulmonary infiltrate SOB (shortness of breath) Sinus congestion Overweight (BMI 25.0-29.9) Urgency of micturition Carpal tunnel syndrome Femoral fracture Pulmonary nodule BPH (benign prostatic hyperplasia) Seizure disorder Insomnia Vitamin D deficiency Impaired glucose tolerance Hypercholesterolemia Anxiety GERD (gastroesophageal reflux disease) Polysubstance abuse Left subclavian artery occlusion Brain aneurysm CVA (cerebral vascular accident) Vocal cord polyp Vitamin B12 deficiency Surgical History History of nasal surgery H/O colonoscopy Stenosis of subclavian bypass History of surgery History of orthopedic surgery History of knee replacement procedure of right knee Family History Father CAD (coronary artery disease) Kidney malignancy Mother Myocardial infarction Brother Prostate cancer Social History Housing: Other Housing Other:: Trailer Are you a primary director medicare sales to a significant other at home: No Do you presently have visiting nurse or other home services: No Alcohol intake: current Alcohol intake frequency: 0-2 drinks per day Alcohol type: beer Patient Tobacco Use Status: Current everyday Tobacco user Tobacco use type: Cigarette Cigarettes Per Day: 5 Years Smoked: not ready to stop 12/2022, Packs per year/per ci.00 e-Cigarette/Vaping Use: Never Used Second Hand Smoke Exposure: No service: No Current occupational status: unemployed Cognitive needs: No Hearing needs: No Vision needs: Yes Questionnaire Thrive Questionnaire Date Thrive assessed: 12/02/22 AUDIT C Alcohol Use Questionnaire (AUDIT-C) 1. How often do you have a drink containing alcohol?: 4 or more times a week 2. How many drinks containing alcohol do you have on a typical day when you are drinking?: 3 or 4 3. How often do you have six or more drinks on one occasion?: Never Total Score: 5 Score Reviewed/Action Taken: Yes DANIE-7 AMB Questionnaire DANIE-7 Date DANIE - 7 assessed: 12/02/22 Source: Developed by Drs. Basilio Esteves, Gina Sales, [employer] and colleagues, with an educational teodoro from [employer]. Physical exam (Primary Care) Vital Signs: Last Vital Signs Pulse 99 10/08/23 10:00 BP 116/68 10/08/23 10:00 Pulse Ox 95 10/08/23 10:00 Oxygen Delivery Method Room Air 10/08/23 10:00 BMI result Body Mass Index 30.1 Tobacco/Smoking Status: Tobacco use Status Tobacco use date assessed 10/08/23 10/08/23 10:05 Patient Tobacco Use Status Current everyday Tobacco 10/08/23 09:59 Tobacco use type Cigarette 10/08/23 09:59 e-Cigarette/Vaping Use Never Used 10/08/23 09:59 Thrive Assessment: Date of Thrive Assessment Date Thrive assessed 12/02/22 10/08/23 09:59 Const General: alert; No acute distress Eyes Conjunctivae: conjunctivae normal Resp Auscultation: clear to auscultation bilaterally Cardio Rate: regular rate Rhythm: regular rhythm GI Inspection: Yes normal to inspection Extrem General: Yes normal to inspection and No edema Assessment and Plan Assessment & Plan (1) Left subclavian artery occlusion: Comment: 2015 with bypass May 2016 Dr. Durbin Code(s): I70.8 - Atherosclerosis of other arteries Plan: Continue presently on anticoagulation (2) GERD (gastroesophageal reflux disease): Code(s): K21.9 - Gastro-esophageal reflux disease without esophagitis Qualifiers: Esophagitis presence: without esophagitis Qualified Code(s): K21.9 - Gastro-esophageal reflux disease without esophagitis Plan: Avoid the foods that causes that usually spicy foods, tomato products, juices, coffee, soda and foods that your sensitive to. After eating do not lie down, allow 3-4 hours before in lie down. And keep the head of bed above 30 degrees to avoid the acid from going up. (3) Hypercholesterolemia: Code(s): E78.00 - Pure hypercholesterolemia, unspecified Plan: Avoid fried foods, chicken skin, eggs, butter margarine, pastries and meat. Be it pork or beef they have a lot of cholesterol LDL goal of less than 100 and triglyceride of less than 150 (4) COPD (chronic obstructive pulmonary disease): Comment: PATIENT HAS MILD TO MODERATE DEGREE OF CHRONIC OBSTRUCTIVE PULMONARY DISEASE. SEEMS TO BE. STABLE AND CONTROLLED AT THIS TIME TX : WIXELA 250-50 1 INHALATION B.I.D. ALBUTEROL HFA 2 PUFFS Q 4-6 HOURS P.R.N. ADVISED TO DO DEEP BREATHING. EXERCISES 3 TIMES A DAY Code(s): J44.9 - Chronic obstructive pulmonary disease, unspecified Plan: Continue with inhaler (5) Obesity (BMI 30.0-34.9): Code(s): E66.9 - Obesity, unspecified Plan: Diet and exercise (6) Generalized anxiety disorder: Code(s): F41.1 - Generalized anxiety disorder Plan: Continue with therapy (7) Tobacco abuse: Code(s): Z72.0 - Tobacco use Plan: Stop smoking! (8) Osteoarthritis of right hip: Code(s): M16.11 - Unilateral primary osteoarthritis, right hip Qualifiers: Osteoarthritis type: primary Qualified Code(s): M16.11 - Unilateral primary osteoarthritis, right hip Plan: Keep active, planned surgery (9) Tinea cruris: Code(s): B35.6 - Tinea cruris Medications: New clotrimazole-betamethasone 1-0.05 % 1 appl topical BID 2 weeks 45 grams 0RF B35.6 - Tinea cruris miconazole nitrate 2% (Zeasorb AF) 1 appl topical BID 85 grams 0RF B35.6 - Tinea cruris Refilled meloxicam 15 mg PO DAILY 20 tabs 0RF B35.6 - Tinea cruris Coding Level of Care Code Est Pt Level 4 (34368) Diagnoses Left subclavian artery occlusion I70.8 Gastroesophageal reflux disease without esophagitis K21.9 Esophagitis presence: without esophagitis Hypercholesterolemia E78.00 COPD (chronic obstructive pulmonary disease) J44.9 Obesity (BMI 30.0-34.9) E66.9 Generalized anxiety disorder F41.1 Tobacco abuse Z72.0 Primary osteoarthritis of right hip M16.11 Osteoarthritis type: primary Tinea cruris B35.6
[2023-10-08 10:00] VITALS: BP 116/68; PULSE 99; O2SAT 95; BMI 30.1
== END 2023-10-08 10:33 | disposition home or self-care (01) ==
PROVIDERS: PCP Internal Medicine; Visit Provider Internal Medicine
DX: J44.9 Chronic obstructive pulmonary disease, unspecified (principal); E66.9 Obesity, unspecified; Z68.30 Body mass index [BMI] 30.0-30.9, adult; I70.8 Atherosclerosis of other arteries; K21.9 Gastro-esophageal reflux disease without esophagitis; E78.00 Pure hypercholesterolemia, unspecified; F41.1 Generalized anxiety disorder; Z72.0 Tobacco use; M16.11 Unilateral primary osteoarthritis, right hip; B35.6 Tinea cruris
CPT/HCPCS: 99214

== ENCOUNTER 2023-10-21 16:10 | Outpatient (AMB) | payer MEDICARE, MEDICAID, SELFPAY ==
[2023-10-21 16:13] VITALS: BP 130/66; PULSE 88; O2SAT 96; BMI 29.6
--- NOTE | 2023-10-21 16:13 | A.OFFPC_ITS ---
Vital Signs 10/21/23 16:13 Height 5 ft 8 in Weight 195 lb BMI 29.6 BP 130/66 Blood Pressure Location Rt brachial Position Sitting Pulse 88 Pulse Source Pulse Oximeter Pulse Oximetry (%) 96 Oxygen Delivery Method Room Air Intake Visit Reasons: RT CHUYITA 11/11/23 Integrated Specialist Required: No Allergies dextromethorphan [From NYQUIL] Allergy (Unknown, Verified 10/21/23 16:13) HIVES divalproex sodium [Depakote] Allergy (Unknown, Verified 10/21/23 16:13) Unknown doxylamine [From NYQUIL] Allergy (Unknown, Verified 10/21/23 16:13) HIVES morphine [MORPHINE] Allergy (Unknown, Verified 10/21/23 16:13) TACHYCARDIA pseudoephedrine [From DAYQUIL SINUS PRESSURE/PAIN] Allergy (Unknown, Verified 10/21/23 16:13) HIVES rosuvastatin Allergy (Unknown, Verified 10/21/23 16:13) sob Medication List - Last Reconciled 10/21/23 by Zuri Feldman MD [shower chair As directed] albuterol sulfate 2.5 mg (3 mL) inhalation QID PRN 30 days albuterol sulfate 90 mcg/actuation 2 puffs PO Q6H PRN NS alprazolam 0.25 mg PO BEDTIME PRN apixaban (Eliquis) 2.5 mg PO BID atorvastatin 80 mg PO DAILY clotrimazole-betamethasone 1-0.05 % 1 appl topical BID 2 weeks fluticasone propion-salmeterol 250-50 mcg/dose (Wixela Inhub) 1 inh inhalation BID 30 days fluticasone propionate 50 mcg/actuation 2 sprays intranasal DAILY gabapentin 600 mg PO TID meloxicam 15 mg PO DAILY miconazole nitrate 2% (Zeasorb AF) 1 appl topical BID omeprazole 20 mg PO BID 90 days oxycodone-acetaminophen 5-325 mg (Percocet) 1 tab PO Q4H PRN tamsulosin 0.4 mg PO BEDTIME 90 days varenicline (Chantix Continuing Month Box) 1 mg PO BID [WALKER As directed] Tobacco use date assessed: 10/21/23 Fall risk assessment: No Falls in past year Last assessed Fall Risk: 10/21/23 Dental Screening Dental Screen Date: 10/21/23 Did you have a dental visit in the last 12 months?: Yes Did you have a dental problem in the last 6 months where you did not have access to dental care?: No Was dental information given to patient?: Patient has dentist HPI RT CHUYITA 11/11/23 HPI Details 63-year-old male smoker with a history o f left subclavian artery occlusion on anticoagulation GERD hypercholesterolemia COPD generalized anxiety disorder and right hip osteoarthritis comes in for preoperative evaluation for right hip replacement. Last seen in September [facility] [place] Medical History (Updated 10/08/23 @ 10:26 by Zuri Feldman MD) Tinea cruris Arthritis Abdominal hernia Numbness Cough Habitual snoring Atelectasis of left lung COPD (chronic obstructive pulmonary disease) Smoker Pes anserinus bursitis of left knee Upper respiratory tract infection Rib fractures Annual physical exam Contusion of chest Back strain Osteoarthritis of right hip Right hip pain Right middle lobe pulmonary infiltrate SOB (shortness of breath) Sinus congestion Overweight (BMI 25.0-29.9) Urgency of micturition Carpal tunnel syndrome Femoral fracture Pulmonary nodule BPH (benign prostatic hyperplasia) Seizure disorder Insomnia Vitamin D deficiency Impaired glucose tolerance Hypercholesterolemia Anxiety GERD (gastroesophageal reflux disease) Polysubstance abuse Left subclavian artery occlusion Brain aneurysm CVA (cerebral vascular accident) Vocal cord polyp Vitamin B12 deficiency Surgical History History of nasal surgery H/O colonoscopy Stenosis of subclavian bypass History of surgery History of orthopedic surgery History of knee replacement procedure of right knee Family History Father CAD (coronary artery disease) Kidney malignancy Mother Myocardial infarction Brother Prostate cancer Social History Housing: Other Housing Other:: Trailer Are you a primary lawn care professional to a significant other at home: No Do you presently have visiting nurse or other home services: No Alcohol intake: current Alcohol intake frequency: 0-2 drinks per day Alcohol type: beer Patient Tobacco Use Status: Current everyday Tobacco user Tobacco use type: Cigarette Cigarettes Per Day: 5 Years Smoked: not ready to stop 12/2022, Packs per year/per ci.00 e-Cigarette/Vaping Use: Never Used Second Hand Smoke Exposure: No service: No Current occupational status: unemployed Cognitive needs: No Hearing needs: No Vision needs: Yes Questionnaire PHQ-9 Over the last 2 weeks, how often have you been bothered by any of the following problems? 1. Little interest or pleasure in doing things: not at all 2. Feeling down, depressed, or hopeless: not at all 3. Trouble falling or staying asleep, or sleeping too much: not at all 4. Feeling tired or having little energy: not at all 5. Poor appetite or overeating: not at all 6. Feeling bad about yourself - or that you are a failure or have let yourself or your family down: not at all 7. Trouble concentrating on things, such as reading the newspaper or watching television: not at all 8. Moving or speaking so slowly that other people could have noticed. Or the opposite - being so fidgety or restless that you have been moving around a lot more than usual: not at all 9. Thoughts that you would be better off or of hurting yourself in some way: not at all Total score: 0 Depression Screening Interpretation: Negative Depression Screening Done: Yes Source: Developed by Drs. Basilio Esteves, Gina Sales, Zev Ambriz and colleagues, with an educational teodoro from [employer]. Thrive Questionnaire Date Thrive assessed: 12/02/22 I am a: Patient What is your living situation today?: I have a steady place to live Within the past 12 months, did the food you bought not last and you didn't have the money to get more?: Never true Within the past 12 months, did you worry whether your food would run out before you got money to buy more?: Never true Do you have trouble paying for medicines?: No Do you have trouble getting transportation to medical appointments?: No Do you have trouble paying your heating and electricity bill?: No Do you have trouble taking care of your child, family member or friend?: No Do you have trouble with day-to-day activities such as bathing, preparing meals, shopping, managing finances, etc.?: No Are you currently unemployed and looking for a job?: No Are you interested in more education?: No AUDIT C Alcohol Use Questionnaire (AUDIT-C) 1. How often do you have a drink containing alcohol?: 4 or more times a week 2. How many drinks containing alcohol do you have on a typical day when you are drinking?: 3 or 4 3. How often do you have six or more drinks on one occasion?: Never Total Score: 5 Score Reviewed/Action Taken: Yes DANIE-7 AMB Questionnaire DANIE-7 Date DANIE - 7 assessed: 10/21/23 Feeling nervous, anxious, or on edge: 0 = Not at all Not being able to stop or control worryin = Not at all Worrying too much about different things: 0 = Not at all Trouble relaxin = Not at all Being so restless that it is hard to sit still: 0 = Not at all Becoming easily annoyed or irritable: 0 = Not at all Feeling afraid as if something awful might happen: 0 = Not at all Total DANIE-7 score (0-4 normal; 5-9 mild; 10-14 moderate; 15-21 severe): 0 Source: Developed by Drs. Basilio Esteves, Gina Sales, Zev Ambriz and colleagues, with an educational teodoro from [employer]. Review of Systems Const Denies poor appetite and Denies weakness Eyes Denies no additional complaints ENT Reports Normal hearing present, Denies dizziness, Denies nasal congestion, Denies tinnitus and Denies sore throat Card Denies chest pain, Denies syncope, Denies rapid heart rate and Denies dyspnea Resp Denies cough and Denies dyspnea GI Denies change in stool character, Reports constipation, Denies diarrhea, Denies nausea and Denies vomiting Denies dysuria and Denies urinary frequency Neuro Reports Normal hearing present, Denies confusion, Denies dizziness, Denies syncope and Denies weakness Psych Denies confusion Physical exam (Primary Care) Vital Signs: Last Vital Signs Pulse 88 10/21/23 16:13 BP 130/66 10/21/23 16:13 Pulse Ox 96 10/21/23 16:13 Oxygen Delivery Method Room Air 10/21/23 16:13 BMI result Body Mass Index 29.6 Tobacco/Smoking Status: Tobacco use Status Tobacco use date assessed 10/21/23 10/21/23 16:14 Patient Tobacco Use Status Current everyday Tobacco 10/21/23 16:14 Tobacco use type Cigarette 10/21/23 16:14 e-Cigarette/Vaping Use Never Used 10/21/23 16:14 PHQ-9: PHQ-9 Score PHQ-9: Total score 0 10/21/23 16:14 Depression Screening Interpretation: Negative Thrive Assessment: Date of Thrive Assessment Date Thrive assessed 12/02/22 10/21/23 16:14 Const General: No confusion Orientation/consciousness: No confusion Eyes Conjunctivae: conjunctivae normal Resp Auscultation: clear to auscultation bilaterally Cardio Rate: regular rate Rhythm: regular rhythm GI Inspection: Yes normal to inspection Neuro General: No confusion Cranial nerves: Yes Normal hearing present Extrem General: Yes normal to inspection and No edema Assessment and Plan Assessment & Plan (1) Preop exam for internal medicine: Code(s): Z01.818 - Encounter for other preprocedural examination Plan: EKG and blood work requested. Discussed for the Eliquis 2 days before to hold prior to surgery and for the meloxicam 1 week to hold off prior to surgery. Patient is in the low risk category. (2) Osteoarthritis of right hip: Code(s): M16.11 - Unilateral primary osteoarthritis, right hip Qualifiers: Osteoarthritis type: primary Qualified Code(s): M16.11 - Unilateral primary osteoarthritis, right hip (3) COPD (chronic obstructive pulmonary disease): Comment: PATIENT HAS MILD TO MODERATE DEGREE OF CHRONIC OBSTRUCTIVE PULMONARY DISEASE. SEEMS TO BE. STABLE AND CONTROLLED AT THIS TIME TX : WIXELA 250-50 1 INHALATION B.I.D. ALBUTEROL HFA 2 PUFFS Q 4-6 HOURS P.R.N. ADVISED TO DO DEEP BREATHING. EXERCISES 3 TIMES A DAY Code(s): J44.9 - Chronic obstructive pulmonary disease, unspecified Plan: Continue with inhaler (4) GERD (gastroesophageal reflux disease): Code(s): K21.9 - Gastro-esophageal reflux disease without esophagitis Qualifiers: Esophagitis presence: without esophagitis Qualified Code(s): K21.9 - Gastro-esophageal reflux disease without esophagitis Plan: Avoid the foods that causes that usually spicy foods, tomato products, juices, coffee, soda and foods that your sensitive to. After eating do not lie down, allow 3-4 hours before in lie down. And keep the head of bed above 30 degrees to avoid the acid from going up. (5) Hypercholesterolemia: Code(s): E78.00 - Pure hypercholesterolemia, unspecified Plan: Avoid fried foods, chicken skin, eggs, butter margarine, pastries and meat. Be it pork or beef they have a lot of cholesterol (6) Left subclavian artery occlusion: Comment: 2016 with bypass May 2016 Dr. Durbin Code(s): I70.8 - Atherosclerosis of other arteries Plan: Continue with anticoagulation but 2 days before the procedure to hold off Eliquis (7) Tobacco abuse: Code(s): Z72.0 - Tobacco use Plan: Strongly advised to stop smoking! Orders: Orders Complete Blood Count Auto Diff Today Z01.818 - Encounter for other preprocedural examination Comprehensive Met. Panel Today Z01.818 - Encounter for other preprocedural examination ECG 12 lead EKG Today Z01.818 - Encounter for other preprocedural examination Coding Level of Care Code Est Pt Level 4 (41062) Diagnoses Preop exam for internal medicine Z01.818 Primary osteoarthritis of right hip M16.11 Osteoarthritis type: primary COPD (chronic obstructive pulmonary disease) J44.9 Gastroesophageal reflux disease without esophagitis K21.9 Esophagitis presence: without esophagitis Hypercholesterolemia E78.00 Left subclavian artery occlusion I70.8 Tobacco abuse Z72.0
== END 2023-10-21 17:22 | disposition home or self-care (01) ==
PROVIDERS: PCP Internal Medicine; Visit Provider Internal Medicine
DX: Z01.818 Encounter for other preprocedural examination (principal); M16.11 Unilateral primary osteoarthritis, right hip; J44.9 Chronic obstructive pulmonary disease, unspecified; K21.9 Gastro-esophageal reflux disease without esophagitis; E78.00 Pure hypercholesterolemia, unspecified; I70.8 Atherosclerosis of other arteries; Z72.0 Tobacco use
CPT/HCPCS: 99214

== ENCOUNTER 2023-10-22 10:14 | Outpatient (REF) | payer MEDICARE, MEDICAID, SELFPAY ==
--- NOTE | 2023-10-22 10:48 | ECG_ITS ---
Test Reason : PREOP Blood Pressure : / mmHG Vent. Rate : 077 BPM Atrial Rate : 077 BPM P-R Int : 154 ms QRS Dur : 082 ms QT Int : 372 ms P-R-T Axes : 065 012 031 degrees QTc Int : 420 ms Normal sinus rhythm Normal ECG When compared with ECG of 16-JUL-2023 12:17, No significant change was found Referred By: Zuri Feldman Electronically Signed By:Vince Chaidez
[2023-10-22 13:56] LABS: Alanine Aminotransferase 17 U/L (0-40); Alkaline Phosphatase 78 U/L (39-117); Anion Gap 11 (12-20); Aspartate Amino Transferase 15 U/L (5-37); Bilirubin Total 0.4 mg/dL (0.0-1.0); Blood Urea Nitrogen 14 mg/dL (9-16); Calcium 9.2 mg/dL (8.4-10.2); Carbon Dioxide 26 mmol/L (22-29); Chloride 111 mmol/L (96-108); Estimated Glomerular Filt Rate > 60; Glucose Random 98 mg/dL (60-115); Potassium 4.4 mmol/L (3.3-5.1); Sodium 144 mmol/L (135-145); Total Protein 6.7 g/dL (6.5-8.0)
== END 2023-10-22 10:15 | disposition home or self-care (01) ==
LOC: HO.HMGCLDS 10:14
PROVIDERS: PCP Internal Medicine; Visit Provider Internal Medicine
DX: Z01.818 Encounter for other preprocedural examination (principal); R97.20 Elevated prostate specific antigen [PSA]; Z12.5 Encounter for screening for malignant neoplasm of prostate
CPT/HCPCS: 36415; 80053; 84153; 84154; 85025; 93005

== ENCOUNTER → 2023-10-22 10:48 | Outpatient (BNV) | payer MEDICARE, MEDICAID, SELFPAY | PROVIDERS: PCP Internal Medicine; Visit Provider Internal Medicine Cardiovascular Disease | DX: Z01.818 Encounter for other preprocedural examination (principal); M16.11 Unilateral primary osteoarthritis, right hip | CPT/HCPCS: 93010 ==

== ENCOUNTER 2023-10-27 15:37 | Outpatient (AMB) | payer MEDICARE, SELFPAY ==
[2023-10-27 15:48] VITALS: BP 124/60; PULSE 92; O2SAT 96; BMI 30.5
--- NOTE | 2023-10-27 15:48 | MHC.OFFVIS ---
Intake Vital Signs 10/27/23 15:48 Height 5 ft 8 in Weight 200 lb 9.93 oz BMI 30.5 BP 124/60 Blood Pressure Location Lt brachial Position Sitting Pulse 92 Pulse Source Pulse Oximeter Pulse Oximetry (%) 96 Oxygen Delivery Method Room Air Intake Visit Reasons: COPD Intake Note: pt is here for follow up and states he states only little wheezing yesterday, but okay today. He is having total right hip 11/11/[address] Mobley. Energy Conservation Director Required: No Allergies dextromethorphan [From NYQUIL] Allergy (Unknown, Verified 10/27/23 16:04) HIVES divalproex sodium [Depakote] Allergy (Unknown, Verified 10/27/23 16:04) Unknown doxylamine [From NYQUIL] Allergy (Unknown, Verified 10/27/23 16:04) HIVES morphine [MORPHINE] Allergy (Unknown, Verified 10/27/23 16:04) TACHYCARDIA pseudoephedrine [From DAYQUIL SINUS PRESSURE/PAIN] Allergy (Unknown, Verified 10/27/23 16:04) HIVES rosuvastatin Allergy (Unknown, Verified 10/27/23 16:04) sob Medication List - Last Reconciled 10/27/23 by Rey Oneil MD [shower chair As directed] albuterol sulfate 2.5 mg (3 mL) inhalation QID PRN 30 days albuterol sulfate 90 mcg/actuation 2 puffs PO Q6H PRN NS alprazolam 0.25 mg PO BEDTIME PRN apixaban (Eliquis) 2.5 mg PO BID atorvastatin 80 mg PO DAILY clotrimazole-betamethasone 1-0.05 % 1 appl topical BID 2 weeks fluticasone propion-salmeterol 250-50 mcg/dose (Wixela Inhub) 1 inh inhalation BID 30 days fluticasone propionate 50 mcg/actuation 2 sprays intranasal DAILY gabapentin 600 mg PO TID meloxicam 15 mg PO DAILY miconazole nitrate 2% (Zeasorb AF) 1 appl topical BID omeprazole 20 mg PO BID 90 days tamsulosin 0.4 mg PO BEDTIME 90 days varenicline (Chantix Continuing Month Box) 1 mg PO BID [WALKER As directed] HPI COPD HPI Details 63 YEARS OLD GENTLEMAN WITH DIAGNOSIS OF CHRONIC OBSTRUCTIVE PULMONARY DISEASE, IS HERE FOR PULMONARY FOLLOW-UP, HE IS STILL AWAITING TO UNDERGO RIGHT HIP REPLACEMENT, AND NEEDS A PULMONARY CLEARANCE. HE CLAIMS THAT HE HAS ONLY OCCASIONAL WHEEZE, HE DOES GET SHORT OF BREATH WHEN HE WALKS FAST, HOWEVER BECAUSE OF HIS THE HIP ARTHRITIS HE IS NOT ABLE TO WALK FAST ANYWAY. HE HAS HAD NO RECENT RESPIRATORY INFECTION. HIS BREATHING IS HOLDING VERY STABLE WITH THE USE OF WIXELA TWICE A DAY AND HE NEEDS TO USE ALBUTEROL ONLY ONCE IN A WHILE. HE STILL SMOKING, DOWN TO 5 CIGARETTES A DAY, HE IS TRYING TO QUIT COMPLETELY. HE IS ON CHANTIX. [facility] Medical History Tinea cruris Arthritis Abdominal hernia Numbness Cough Habitual snoring Atelectasis of left lung COPD (chronic obstructive pulmonary disease) Smoker Pes anserinus bursitis of left knee Upper respiratory tract infection Rib fractures Annual physical exam Contusion of chest Back strain Osteoarthritis of right hip Right hip pain Right middle lobe pulmonary infiltrate SOB (shortness of breath) Sinus congestion Overweight (BMI 25.0-29.9) Urgency of micturition Carpal tunnel syndrome Femoral fracture Pulmonary nodule BPH (benign prostatic hyperplasia) Seizure disorder Insomnia Vitamin D deficiency Impaired glucose tolerance Hypercholesterolemia Anxiety GERD (gastroesophageal reflux disease) Polysubstance abuse Left subclavian artery occlusion Brain aneurysm CVA (cerebral vascular accident) Vocal cord polyp Vitamin B12 deficiency Surgical History History of nasal surgery H/O colonoscopy Stenosis of subclavian bypass History of surgery History of orthopedic surgery History of knee replacement procedure of right knee Family History Father CAD (coronary artery disease) Kidney malignancy Mother Myocardial infarction Brother Prostate cancer Social History Housing: Other Housing Other:: Trailer Are you a primary healthcare translator to a significant other at home: No Do you presently have visiting nurse or other home services: No Alcohol intake: current Alcohol intake frequency: 0-2 drinks per day Alcohol type: beer Patient Tobacco Use Status: Current everyday Tobacco user Tobacco use type: Cigarette Cigarettes Per Day: 5 Years Smoked: not ready to stop 12/2022, e-Cigarette/Vaping Use: Never Used Second Hand Smoke Exposure: No service: No Current occupational status: unemployed Cognitive needs: No Hearing needs: No Vision needs: Yes Review of Systems Const All systems reviewed & are unremarkable except as noted in HPI and below Eyes Reports no additional complaints ENT Reports no additional complaints Card Denies chest pain, Denies irregular heart rhythm and Denies leg edema Resp Reports as per HPI GI Reports constipation and Reports heartburn Reports no additional complaints Musc Reports arthralgias (HIPS) Skin/Breast Reports system reviewed and no additional complaints, except as documented Neuro Reports no additional complaints Psych Reports no additional complaints Endo Reports no additional complaints Sarkis/Lymph Reports no additional complaints Physical Exam Vital Signs: BMI result Body Mass Index 30.5 Const General: comfortable, no acute distress, alert and awake Orientation/consciousness: patient oriented x3 HEENT Head: Yes normal to inspection General nose exam: No nasal polyps present and No nasal discharge present Face and sinus: Yes sinuses nontender Mouth: oropharynx normal Throat: Yes posterior oropharynx normal Eyes General: appearance normal, both eyes and all related structures Neck Other: SCAR ON THE LEFT SIDE FROM PREVIOUS CAROTID ENDARTERECTOMIES Neck: Yes normal visual inspection, Yes no lymphadenopathy, Yes trachea midline and Yes no JVD Thyroid: Thyroid normal Chest Chest palpation & inspection: normal inspection of the chest, normal palpation of entire chest wall and no tenderness Resp Other: PERCUSSION NOTE IS RESONANT, BREATH SOUNDS ARE SLIGHTLY DISTANT AND ESPECIALLY DECREASED OVER. THE BASILAR AREAS NO CREPITATIONS OR WHEEZES. ARE HEARD TODAY Cardio Palpation: normal PMI Rate: regular rate Rhythm: regular rhythm Heart sounds: no gallops and no murmurs GI Palpation (GI): Soft to palpation, nontender, No hepatosplenomegaly present and no masses Auscultation: normal bowel sounds Back/Spine/Pelvis Thoracic/Lumbar Spine: thoracic and lumbar spine normal to inspection Skin General skin exam: no rashes or lesions noted Neuro General: patient oriented x3 and no focal motor deficits Cranial nerves: Yes CN's II-XII intact bilaterally Extrem General: Yes normal to inspection, Yes no clubbing, cyanosis or edema and Yes no calf tenderness Psych Appearance: grossly normal and well kempt Speech and movement: Normal speech and movement present Assessment & Plan Assessment & Plan (1) COPD (chronic obstructive pulmonary disease): Comment: PATIENT HAS MILD TO MODERATE DEGREE OF CHRONIC OBSTRUCTIVE PULMONARY DISEASE. SEEMS TO BE. STABLE AND CONTROLLED AT THIS TIME TX : WIXELA 250-50 1 INHALATION B.I.D. ALBUTEROL HFA 2 PUFFS Q 4-6 HOURS P.R.N. Code(s): J44.9 - Chronic obstructive pulmonary disease, unspecified Plan: ADVISED TO CONTINUE USING PRESENT MEDS, INCLUDING WIXELA 250-51 INHALATION B.I.D. AND ALBUTEROL HFA 2 PUFFS Q 6 HOURS P.R.N., ALTERNATIVELY USE ALBUTEROL SOLUTION IN THE NEBULIZER Q 4-6 HOURS P.R.N.. (2) Smoker: Comment: HE DOES HAVE LONGSTANDING HISTORY OF SMOKING, TRYING TO CUT IT DOWN NOW AND QUIT COMPLETELY . Code(s): F17.200 - Nicotine dependence, unspecified, uncomplicated Plan: I TOLD HIM THAT THE GOAL IS TO QUIT COMPLETELY, PRIOR TO THE RIGHT HIP SURGERY. HE IS ON CHANTIX AT THIS TIME AND IS TOLERATING WELL. Plan PRE OP CLEARANCE. PATIENT IS TO UNDERGO RIGHT HIP REPLACEMENT,. UNDER GENERAL ANESTHESIA FROM PULMONARY POINT OF VIEW HE IS A CASE OF MODERATE SURGICAL RISK, BUT NO CONTRAINDICATION NOTED. I HAVE URGED HIM TO QUIT SMOKING COMPLETELY PRIOR TO SURGERY. Coding Level of Care Code Est Pt Level 4 (75150) Diagnoses COPD (chronic obstructive pulmonary disease) J44.9 Smoker F17.200
== END 2023-10-27 16:05 | disposition home or self-care (01) ==
PROVIDERS: PCP Internal Medicine; Visit Provider Internal Medicine
DX: J44.9 Chronic obstructive pulmonary disease, unspecified (principal); F17.200 Nicotine dependence, unspecified, uncomplicated
CPT/HCPCS: 99214

== ENCOUNTER → 2023-10-27 15:37 | Outpatient (BNVA) | payer MEDICARE, SELFPAY | PROVIDERS: PCP Internal Medicine; Visit Provider Internal Medicine | DX: J44.9 Chronic obstructive pulmonary disease, unspecified (principal); F17.210 Nicotine dependence, cigarettes, uncomplicated | CPT/HCPCS: 99212 ==

== ENCOUNTER → 2023-11-06 15:06 | Outpatient (BNVA) | payer MEDICARE, MEDICAID, SELFPAY | PROVIDERS: PCP Internal Medicine; Visit Provider Physician Assistant ==

== ENCOUNTER → 2023-11-11 | Day surgery (SDC) | payer MEDICARE, OTHER, SELFPAY ==
[2023-09-08 12:36] VITALS: BP 128/61; PULSE 95; RESP 20; O2SAT 95; BMI 29.8
--- NOTE | 2023-09-08 12:55 | P.CONAN_ITS ---
HPI - Anesthesia Eval Consult details Narrative: Rescheduled to 10/2023 63yo M for Right Hip Total Replacement, 10/07/23 Pulmo optimized Medically optimized No recent illness No SOB/CP with groceries/short dog walks Percocet/owen for pain Eliquis for PAD. OK to hold 2 days per PCP. COPD/Smoker. Down to 4 cigs/day from 2 packs. Rescue inhaler ~ monthly. Seizure. None for ~ 1 year. Rare occurence, ~yearly. Does not follow neurologist or seek medical attention post seizure. GERD. Well controlled with ppi. CVA/Brain aneurysm/ Subclavian stenosis s/p bypass. Recent LUE tingling. CT pending ordered by [facility] vascular Vocal cord polyp [facility] Active Problems All Active Problems Preop exam for internal medicine (Acute) Headache (Acute) Wheezing (Acute) PSA elevation (Acute) Lipoma (Acute) Nipple pain (Acute) Generalized anxiety disorder (Acute) Trochanteric bursitis, right hip (Acute) Strain of right hip adductor muscle (Acute) Right thigh pain (Acute) Benign positional vertigo (Acute) Tubular adenoma of colon (Acute) Annual physical exam (Acute) Otitis externa (Acute) Hemorrhoids (Acute) Alcohol abuse (Acute) Obesity (BMI 30.0-34.9) (Acute) Rib pain on left side (Acute) Tongue lesion (Acute) Osteoarthritis of left knee (Acute) Tobacco abuse (Acute) COPD (chronic obstructive pulmonary disease) (Acute) Atelectasis of left lung (Acute) COPD (chronic obstructive pulmonary disease) (Acute) Smoker (Acute) SOB (shortness of breath) (Acute) Osteoarthritis of right hip (Acute) Right hip pain (Acute) Left subclavian artery occlusion (Acute) CVA (cerebral vascular accident) (Acute) BPH (benign prostatic hyperplasia) (Acute) Impaired glucose tolerance (Acute) Hypercholesterolemia (Acute) Anxiety (Acute) GERD (gastroesophageal reflux disease) (Acute) Past Medical History Medical History Arthritis Abdominal hernia Numbness Cough Habitual snoring Atelectasis of left lung COPD (chronic obstructive pulmonary disease) Smoker Tinea cruris Pes anserinus bursitis of left knee Upper respiratory tract infection Rib fractures Annual physical exam Contusion of chest Back strain Osteoarthritis of right hip Right hip pain Right middle lobe pulmonary infiltrate SOB (shortness of breath) Sinus congestion Overweight (BMI 25.0-29.9) Urgency of micturition Carpal tunnel syndrome Femoral fracture Pulmonary nodule BPH (benign prostatic hyperplasia) Seizure disorder Insomnia Vitamin D deficiency Impaired glucose tolerance Hypercholesterolemia Anxiety GERD (gastroesophageal reflux disease) Polysubstance abuse Left subclavian artery occlusion Brain aneurysm CVA (cerebral vascular accident) Vocal cord polyp Vitamin B12 deficiency Family History Family History Father CAD (coronary artery disease) Kidney malignancy Mother Myocardial infarction Brother Prostate cancer Family history of problems with anesthesia: No Surgical History Surgical History History of nasal surgery H/O colonoscopy Stenosis of subclavian bypass History of surgery History of orthopedic surgery History of knee replacement procedure of right knee History of Problems with Anesthesia: No Social History Social History Housing: Other Housing Other:: Trailer Are you a primary care clinician to a significant other at home: No Do you presently have visiting nurse or other home services: No Alcohol intake: current Alcohol intake frequency: 0-2 drinks per day Alcohol type: beer Patient Tobacco Use Status: Current everyday Tobacco user Tobacco use type: Cigarette Cigarettes Per Day: 5 Years Smoked: not ready to stop 12/2022, e-Cigarette/Vaping Use: Never Used Second Hand Smoke Exposure: No service: No Current occupational status: unemployed Cognitive needs: No Hearing needs: No Vision needs: Yes Meds Allergies Allergy/AdvReac Type Severity Reaction Status Date / Time dextromethorphan Allergy Unknown HIVES Verified 09/29/23 14:25 [From NYQUIL] divalproex sodium [Depakote] Allergy Unknown Unknown Verified 09/29/23 14:25 doxylamine [From NYQUIL] Allergy Unknown HIVES Verified 09/29/23 14:25 morphine [MORPHINE] Allergy Unknown TACHYCARDIA Verified 09/29/23 14:25 pseudoephedrine Allergy Unknown HIVES Verified 09/29/23 14:25 [From DAYQUIL SINUS PRESSURE/PAIN] rosuvastatin Allergy Unknown sob Verified 09/29/23 14:25 Home Medications Medication Instructions Recorded Confirmed Last Taken Type gabapentin 300 mg capsule 600 mg PO TID 09/21/20 09/08/23 Unknown History apixaban 2.5 mg tablet (Eliquis) 2.5 mg PO BID 09/09/22 09/08/23 Unknown History oxycodone-acetaminophen 5 mg-325 1 tab PO Q4H PRN Pain 12/23/22 09/08/23 Unknown History mg tablet (Percocet) atorvastatin 80 mg tablet 80 mg PO DAILY 09/08/23 09/08/23 Unknown History Exam Height,Weight and Vital Signs: Height 5 ft 8 in Weight 88.904 kg Last Vital Signs Pulse 95 09/08/23 12:36 Resp 20 09/08/23 12:36 BP 128/61 09/08/23 12:36 Pulse Ox 95 09/08/23 12:36 O2 Del Method Room Air 09/08/23 12:36 Pertinent Lab Results Pertinent Lab Results: Laboratory Tests 07/16/23 12:24 WBC 14.0 H Hgb 15.7 Hct 43.9 Plt Count 209 Sodium 134 L Potassium 4.8 Chloride 104 Carbon Dioxide 23 BUN 9 Creatinine 0.77 Narrative Narrative: EKG 06/2023 Vent. Rate : 100 BPM Atrial Rate : 100 BPM P-R Int : 140 ms QRS Dur : 076 ms QT Int : 336 ms P-R-T Axes : 069 023 043 degrees QTc Int : 433 ms Normal sinus rhythm Normal ECG When compared with ECG of 21-NOV-2022 17:19, T wave amplitude has increased in Anterior leads Airway Mallampati Class: III TM Dist: >3cm Neck ROM: Full Loose/Missing/Broken Teeth: Yes (multiple molars missing) Heart: RRR Lungs: CTAB Assessment and Plan Assessment Anesthesia Assessment: Anesthesia Plan Discussed, Smoking Cess. Discussed and PAT Visit Final Anesthetic Review Family History of Problems with Anesthesia: No History of Problems with Anesthesia: No
[2023-09-08 14:48] LABS: MRSA Nasal PCR NEGATIVE (Negative); SA Nasal PCR POSITIVE (Negative)
--- NOTE | 2023-11-05 15:00 | P.CONAN_ITS ---
HPI - Anesthesia Eval Consult details Narrative: Pt cx'd DOS d/t fever/illness. Nasal swab negative for rsv/flu/covid. 63yo M for Right Hip Total Replacement, 11/11/23 Pulmo optimized Medically optimized Vascular optimized Dental cleared (previously cx'd d/t dental issues) No recent illness No SOB/CP with groceries/short dog walks Percocet/owen for pain Eliquis for PAD. OK to hold 2 days per Vascular COPD/Smoker. Down to 4 cigs/day from 2 packs. Rescue inhaler ~ monthly. ?Seizure. None for ~ 1 year. Rare occurence, ~yearly. Does not follow neurologist or seek medical attention post seizure. GERD. Well controlled with ppi. CVA/Brain aneurysm/ Subclavian stenosis s/p bypass. On Elquis. Follows [facility] vascular. Vocal cord polyp PMFSH Active Problems Active Problems: All Active Problems (Updated 10/27/23 @ 16:09 by Rey Oneil MD) Tinea cruris (Acute) Preop exam for internal medicine (Acute) Headache (Acute) Wheezing (Acute) PSA elevation (Acute) Lipoma (Acute) Nipple pain (Acute) Generalized anxiety disorder (Acute) Trochanteric bursitis, right hip (Acute) Strain of right hip adductor muscle (Acute) Right thigh pain (Acute) Benign positional vertigo (Acute) Tubular adenoma of colon (Acute) Annual physical exam (Acute) Otitis externa (Acute) Hemorrhoids (Acute) Alcohol abuse (Acute) Obesity (BMI 30.0-34.9) (Acute) Rib pain on left side (Acute) Tongue lesion (Acute) Osteoarthritis of left knee (Acute) Tobacco abuse (Acute) COPD (chronic obstructive pulmonary disease) (Acute) Atelectasis of left lung (Acute) COPD (chronic obstructive pulmonary disease) (Acute) Smoker (Acute) SOB (shortness of breath) (Acute) Osteoarthritis of right hip (Acute) Right hip pain (Acute) Left subclavian artery occlusion (Acute) CVA (cerebral vascular accident) (Acute) BPH (benign prostatic hyperplasia) (Acute) Impaired glucose tolerance (Acute) Hypercholesterolemia (Acute) Anxiety (Acute) GERD (gastroesophageal reflux disease) (Acute) Past Medical History Medical History Tinea cruris Arthritis Abdominal hernia Numbness Cough Habitual snoring Atelectasis of left lung COPD (chronic obstructive pulmonary disease) Smoker Pes anserinus bursitis of left knee Upper respiratory tract infection Rib fractures Annual physical exam Contusion of chest Back strain Osteoarthritis of right hip Right hip pain Right middle lobe pulmonary infiltrate SOB (shortness of breath) Sinus congestion Overweight (BMI 25.0-29.9) Urgency of micturition Carpal tunnel syndrome Femoral fracture Pulmonary nodule BPH (benign prostatic hyperplasia) Seizure disorder Insomnia Vitamin D deficiency Impaired glucose tolerance Hypercholesterolemia Anxiety GERD (gastroesophageal reflux disease) Polysubstance abuse Left subclavian artery occlusion Brain aneurysm CVA (cerebral vascular accident) Vocal cord polyp Vitamin B12 deficiency Family History Family History Father CAD (coronary artery disease) Kidney malignancy Mother Myocardial infarction Brother Prostate cancer Family history of problems with anesthesia: No Surgical History Surgical History History of nasal surgery H/O colonoscopy Stenosis of subclavian bypass History of surgery History of orthopedic surgery History of knee replacement procedure of right knee History of Problems with Anesthesia: No Social History Social History Housing: Other Housing Other:: Trailer Are you a primary wound care specialist to a significant other at home: No Do you presently have visiting nurse or other home services: No Alcohol intake: current Alcohol intake frequency: 0-2 drinks per day Alcohol type: beer Patient Tobacco Use Status: Current everyday Tobacco user Tobacco use type: Cigarette Cigarettes Per Day: 5 Years Smoked: not ready to stop 12/2022, Packs per year/per ci.00 e-Cigarette/Vaping Use: Never Used Second Hand Smoke Exposure: No service: No Current occupational status: unemployed Cognitive needs: No Hearing needs: No Vision needs: Yes Meds Allergies Allergy/AdvReac Type Severity Reaction Status Date / Time dextromethorphan Allergy Unknown HIVES Verified 11/12/23 14:28 [From NYQUIL] divalproex sodium [Depakote] Allergy Unknown Unknown Verified 11/12/23 14:28 doxylamine [From NYQUIL] Allergy Unknown HIVES Verified 11/12/23 14:28 morphine [MORPHINE] Allergy Unknown TACHYCARDIA Verified 11/12/23 14:28 pseudoephedrine Allergy Unknown HIVES Verified 11/12/23 14:28 [From DAYQUIL SINUS PRESSURE/PAIN] rosuvastatin Allergy Unknown sob Verified 11/12/23 14:28 Home Medications Medication Instructions Recorded Confirmed Last Taken Type gabapentin 300 mg capsule 300 mg PO TID 09/21/20 11/12/23 Unknown History apixaban 2.5 mg tablet (Eliquis) 2.5 mg PO BID 09/09/22 11/12/23 11/07/23 History atorvastatin 80 mg tablet 80 mg PO DAILY 09/08/23 11/12/23 Unknown History tramadol 50 mg tablet 50 mg PO Q4H PRN Pain (Scale Score 11/06/23 11/12/23 Unknown History 4-6) clotrimazole-betamethasone 1 1 appl topical BID PRN Rash 11/11/23 11/12/23 Unknown History %-0.05 % topical cream miconazole nitrate 2 % topical 1 appl topical BID PRN Rash 11/11/23 11/12/23 Unknown History powder (Zeasorb AF) omeprazole 20 mg capsule,delayed 20 mg PO BID@0630,1630 11/11/23 11/12/23 Unknown History release Exam Height,Weight and Vital Signs: Height 5 ft 8 in Weight 88.904 kg Last Vital Signs Pulse 95 09/08/23 12:36 Resp 20 09/08/23 12:36 BP 128/61 09/08/23 12:36 Pulse Ox 95 09/08/23 12:36 O2 Del Method Room Air 09/08/23 12:36 Pertinent Lab Results Pertinent Lab Results: Laboratory Tests 09/08/23 09/08/23 12:45 13:26 Nasal Screen MRSA (PCR) NEGATIVE Nasal S. aureus Screen POSITIVE A Nasal MRSA/S.aureus Interp SEE NOTE Blood Type A Positive Antibody Screen POSITIVE Antibody Identification Anti-E Laboratory Tests 07/16/23 12:24 WBC 14.0 H Hgb 15.7 Hct 43.9 Plt Count 209 Sodium 134 L Potassium 4.8 Chloride 104 Carbon Dioxide 23 BUN 9 Creatinine 0.77 Narrative Narrative: EKG 10/2023 Vent. Rate : 077 BPM Atrial Rate : 077 BPM P-R Int : 154 ms QRS Dur : 082 ms QT Int : 372 ms P-R-T Axes : 065 012 031 degrees QTc Int : 420 ms Normal sinus rhythm Normal ECG When compared with ECG of 16-JUL-2023 12:17, No significant change was found Airway Mallampati Class: III TM Dist: >3cm Neck ROM: Full Loose/Missing/Broken Teeth: Yes (multiple molars missing) Heart: RRR Lungs: CTAB Assessment and Plan Assessment Anesthesia Assessment: Chart Reviewed (Seen in PAT 08/2023. Resched to 10/2023) Final Anesthetic Review Family History of Problems with Anesthesia: No History of Problems with Anesthesia: No
--- OUTSIDE RECORDS SUMMARY | 2023-11-11 08:41 | XMS_ITS | Continuity of Care Document ---
Author Name Unknown Organization [facility] Address [address] [place] [address]- Care Team Providers Care Imaging Scheduler Name Role Phone Zuri Feldman MD Primary Care Physician Encounter [facility] [place] Date(s): 10/22/23 - 10/29/23 [facility] [address], [place] [id number] Attending Physician: Sharon KING, Salbador Gurrola Admitting Physician: Salbador Herrera MD Referring Physician: Zuri Feldmna MD Allergies, Adverse Reactions, Alerts Substance Reaction Severity Status Nyquil Cold Medicine 1 rash Persistent Moderat e Active Zithromax Z-Charlie 2 rash Persistent Moderate Act elena Morphine Sulfate ADD-[place] 3 heart races Persisten t Mild Active 1hives 2hives 3tachycardica Medications Aspirin = 81 mg, By Mouth, Daily in AM, 0 Refills, Maintenance, 11/30/15 9:52:35 EST Start Date: 11/30/15 Status: Ordered Eliquis 2.5 mg oral tablet 1 tablet, By Mouth, 2 times a day, # 56 tablet, 3 Refills, Maintenance, 10/16/23 11:50:00 EST, [facility], 173, cm, 02/07/23 13:33:00 EDT, Height, 84.5, kg, 09/12/22 14:06:00 EST, DryWeight Start Date: 10/16/23 Status: Ordered Flonase 50 mcg/inh nasal spray 1 sprays, Daily, 0 Refills, Maintenance, 08/11/15 8:46:59 Start Date: 08/11/15 Status: Ordered gabapentin 300 mg oral capsule See Instructions, TAKE 1 CAPSULE BY MOUTH 3 TIMES A DAY, # 270 capsule, Refills 0, Tot. Refills 0, Maintenance, 07/07/23 21:17:00 EDT, Instructions Replace Required Details, Route to Pharmacy Electronically, [facility], 173, cm, 02/07/23 1... Start Date: 07/07/23 Status: Ordered Lipitor 80 mg oral tablet 1 tablet = 80 mg, By Mouth, Daily, # 30 tablet, 0 Refills, Maintenance, 10/25/15 9:32:59, Tablet Start Date: 10/25/15 Status: Ordered oxyCODONE 5 mg oral tablet 5 mg, 1, tablet, By Mouth, Every 6 hours, PRN, needs to wean and supplement with tyelenol, # 20 tablet, Refills 0, Tot. Refills 0, Maintenance, as needed for pain, 10/09/23 7:41:00 EST, Route to Pharmacy Electronically, [facility], Partial... Start Date: 10/09/23 Status: Ordered pantoprazole 40 mg oral delayed release tablet = 40 mg, By Mouth, Daily, # 30 tablet, 0 Refills, Maintenance, 09/13/22 8:30:00 EST, [facility] Tablet Start Date: 09/13/22 Stop Date: 10/13/22 Status: Ordered ProAir HFA 90 mcg/inh inhalation aerosol with adapter 2 puffs, Inhalation, 4 times a day, PRN Wheezing/Shortness of Breath, 0 Refills, Maintenance, 08/11/15 8:47:19 Start Date: 08/11/15 Status: Ordered tamsulosin 0.4 mg oral capsule 0.4 mg, 1, capsule, By Mouth, Daily in AM, Refills 0, Maintenance, 03/23/20 9:54:00 EDT Start Date: 03/23/20 Status: Ordered traMADol 50 mg oral tablet 1 tablet = 50 mg, By Mouth, Every 4 hours, PRN for pain, # 60 tablet, 3 Refills, Maintenance, 10/22/23 14:51:00 EST, Tablet, [facility], Partial fill upon patient request if the prescription is for a schedule II opioid drug., 173, cm, 01/19... Start Date: 10/22/23 Status: Ordered Trelegy Ellipta 200 mcg-62.5 mcg-25 mcg/inh inhalation powder 1 puffs, Inhalation, Daily in AM, at the same time every day, 0 Refills, Maintenance, 07/25/21 9:06:00 EDT, Powder, Partial fill upon patient request if the prescription is for a schedule II opioid drug. Start Date: 07/25/21 Status: Ordered varenicline 1mg tablet 1 tablet = 1 mg, By Mouth, 2 times a day, # 56 tablet, 0 Refills, Maintenance, 02/07/23 13:34:00 EDT, Tablet, Partial fill upon patient request if the prescription is for a schedule II opioid drug. 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 Confirmed Active GERD (gastroesophageal reflux disease) Confirmed Active Hoarseness of voice Confirmed Active Hyperlipemia Confirmed Active Brain aneurysm, anterior communicating Confirmed Active Right Lung nodule, large bulbae in right upper lobe 07/05/2015 Confirmed Active Narcotic drug use, off street use of Percocet Confirmed Active Nasal polyps Confirmed Active Seizures Confirmed Active Subclavian steal syndrome Confirmed Active Current tobacco use most of his life, attempting to quit Confirmed Active Tubular adenoma Confirmed Active Social History Social History Type Response Smoking Status Former smoker; Other : quit nov 2017; entered on: 03/13/18 Sex Patient Care team information Care Team Personnel Name: Rehana Kinsey RN Position: [facility] RN Member Role: Primary Care Nurse Name: Nelly Liu RN Position: S RN Member Role: Primary Care Nurse Name: Stacey Quevedo RN Position: S RN Member Role: Primary Care Nurse Name: Zuri Feldman MD Position: Reference Physician Member Role: PCP Address: Address: [address] [place] [id number] Name: Elvira Jefferson RN Position: S RN Member Role: Primary Care Nurse Care Team Related Persons Name: BRIANA HOWE Address: [place] [address] Name: KUMAR HOWE Address: [place] [address] Name: RICARDO HOWE Address: [place] [address]
--- OUTSIDE RECORDS SUMMARY | 2023-11-11 08:41 | XMS_ITS | Continuity of Care Document ---
Author Name Unknown Organization [facility] Address [address] [place] [address]- Care Team Providers Care Shipping Checker Name Role Phone Po Zuri KING Primary Care Physician Encounter [facility] [place] Date(s): 10/04/22 - 10/11/22 [facility] [address] [place] [address]- Attending Physician: Jarrod Durbin MD Admitting Physician: Jarrod Durbin MD Allergies, Adverse Reactions, Alerts Substance Reaction Severity Status Nyquil Cold Medicine 1 rash Persistent Moderat e Active Zithromax Z-Charlie 2 rash Persistent Moderate Act elena Morphine Sulfate ADD-[place] 3 heart races Persisten t Mild Active 1hives 2hives 3tachycardica Medications acetaminophen-oxyCODONE 325 mg-5 mg oral tablet 1, tablet, By Mouth, Every 4 hours, PRN, DX: Left sublclavian occlusion, # 150 tablet, Refills 0, Tot. Refills 0, Maintenance, as needed for pain, 10/04/22 14:26:00 EST, Route to Pharmacy Electronically, [facility] Tablet, Partial fill upo... Start Date: 10/04/22 Status: Ordered Aspirin = 81 mg, By Mouth, Daily in AM, 0 Refills, Maintenance, 11/30/15 9:52:35 EST Start Date: 11/30/15 Status: Ordered Eliquis 2.5 mg oral tablet 1 tablet, By Mouth, 2 times a day, # 56 tablet, 0 Refills, Maintenance, 09/06/22 12:37:00 EST, [facility], 170, cm, 03/01/22 9:08:00 EDT, Height Start Date: 09/06/22 Status: Ordered Flonase 50 mcg/inh nasal spray 1 sprays, Daily, 0 Refills, Maintenance, 08/11/15 8:46:59 Start Date: 08/11/15 Status: Ordered gabapentin 300 mg oral capsule See Instructions, TAKE 1 CAPSULE BY MOUTH 3 TIMES A DAY, # 270 capsule, Refills 3, Maintenance, 08/23/22 12:28:00 EDT, Instructions Replace Required Details, Route to Pharmacy Electronically, [facility], 170, cm, 03/01/22 9:08:00 EDT, He... Start Date: 08/23/22 Status: Ordered Lipitor 80 mg oral tablet 1 tablet = 80 mg, By Mouth, Daily, # 30 tablet, 0 Refills, Maintenance, 10/25/15 9:32:59, Tablet Start Date: 10/25/15 Status: Ordered pantoprazole 40 mg oral delayed [...] 9:54:00 EDT Start Date: 03/23/20 Status: Ordered Trelegy Ellipta 200 mcg-62.5 mcg-25 mcg/inh inhalation powder 1 puffs, Inhalation, Daily in AM, at the same time every day, 0 Refills, Maintenance, 07/25/21 9:06:00 EDT, Powder, Partial fill upon patient request if the prescription is for a schedule II opioid drug. Start Date: 07/25/21 Status: Ordered Zyrtec-D 1 tablet, By Mouth, [...] quit nov 2017; entered on: 03/13/18 Sex Note * Dereje Khan: PERFORM, SIGN, VERIFY Event Display: Patient Education/Instruction Authored Date: [id number] [facility] [address] Clinical Summary Name TRACIE HOWE Age 62 Years 1960 PCP Zuri Feldman MD PCP Visit Date 10/04/2022 06:47:00 Additional Instructions: Scheduled Appointments?? Future Appointments ?No Future Appointments Scheduled Follow-Up Instructions ?? Diagnosis Medications: Please continue your medications until treatment is completed or stopped by your provider. Discuss any questions related to medications with your provider. Medications to Continue with No Changes These medications were not printed or sent to your pharmacy Albuterol (ProAir HFA 90 mcg/inh inhalation aerosol with adapter) 2 puff(s) Inhalation 4 times a day as needed Wheezing/Shortness of Breath. Next Dose: apixaban (Eliquis 2.5 mg oral tablet) 1 tab(s) Oral twice a day. Refills: 0. Next Dose: Aspirin 81 Milligram Oral Daily in the morning. Next Dose: Atorvastatin (Lipitor 80 mg oral tablet) 1 tab(s) Oral Daily. Next Dose: Cetirizine-Pseudoephedrine (Zyrtec-D) 1 tab(s) Oral Daily. Next Dose: Fluticasone Nasal (Flonase 50 mcg/inh nasal spray) 1 spray(s) Daily. Next Dose: fluticasone/umeclidinium/vilanterol (Trelegy Ellipta 200 mcg-62.5 mcg-25 mcg/inh inhalation powder)1 puff(s) Inhalation Daily in the morning. at the same time every day. Next Dose: Gabapentin (gabapentin 300 mg oral capsule) TAKE 1 CAPSULE BY MOUTH 3 TIMES A DAY. Refills: 3. Next Dose: Oxycodone / Acetaminophen (acetaminophen-oxyCODONE 325 mg-5 mg oral tablet) 1 tab(s) Oral every 4 hours as needed as needed for pain. DX: Left sublclavian occlusion. Refills: 0. Next Dose: Pantoprazole (pantoprazole 40 mg oral delayed release tablet) 40 Milligram Oral Daily for 30 Days. Refills: 0. Next Dose: Tamsulosin (tamsulosin 0.4 mg oral capsule) 1 capsule Oral Daily in the morning. Next Dose: Allergy Info:?? Morphine Sulfate ADD-[place]; Zithromax Z-Charlie; Nyquil Cold Medicine Medications Given This Visit Future Orders ?No future orders Vital Signs Height Weight BMI Blood Pressure / Temperature Pulse Rate Respiratory Rate 02 Sat Mode of Delivery / You can now view a summary of your hospital visit from the comfort of your home through a free online portal called [facility]. [facility] is a website that allows you to securely view your medical information including discharge summary, medications and follow-up visits. ??You can alsosend a secure electronic message to your doctor???s office to request appointments, renew medications or just ask a question. You can enroll at [email or web address] or register during your next office visit. Disclaimer:?? The information provided is of a general nature and is intended to be used in conjunction with the recommendations and advice of your health care practitioner. ??Every effort has been made to ensure that the information provided is accurate and complete at the time it is provided to you however, as your needs change, or, as new ??information becomes available, different or additional instructions may be required. If you have questions, please consult with your primary care provider or pharmacist, as appropriate. ??This information is not intended to serve as substitution for assessment and evaluation by a qualified health care provider. If you do not have a primary care provider, you may find a [facility] provider by calling [facility] Link at [phone]. For information about the plan of care including goals and instructions for your diagnosis, please see the patient education orders section of this document. Patient Education Materials?? The content of this educational material or handout may have been modified, supplemented, or adapted from its original content and format to support your individualized medical care. Patient Care team information Care Team Personnel Name: Rehana Kinsey RN Position: S RN Member Role: Primary Care Nurse Name: Nelly Liu RN Position: S RN Member Role: Primary Care Nurse Name: Stacey Quevedo RN Position: S RN Member Role: Primary Care Nurse Name: Zuri Feldman MD Position: Reference Physician Member Role: PCP Address: Address: [address] [place] [id number] Name: Elvira Jefferson RN Position: S RN Member Role: Primary Care Nurse Care Team Related Persons Name: BRIANA HOWE Address: home [address] [place] [id number] Name: KUMAR HOWE Address: home [address] [place] [address] Name: RICARDO HOWE Address: home [address] [place] [address]
--- OUTSIDE RECORDS SUMMARY | 2023-11-11 08:41 | XMS_ITS | Continuity of Care Document ---
Author Name Unknown Organization [facility] Address [address] [place] [address]- Care Team Providers Care Sewing Machine Repairer Helper Name Role Phone Po Zuri KING Primary Care Physician [phone] Encounter [facility] [place] Date(s): 05/08/21 - 06/07/21 [facility] [address] [place] [address]- Allergies, Adverse Reactions, Alerts Substance Reaction Severity Status Nyquil Cold Medicine 1 rash Persistent Moderat e Active Zithromax Z-Charlie 2 rash Persistent Moderate Act elena Morphine Sulfate ADD-[place] 3 heart races Persisten t Mild Active 1hives 2hives 3tachycardica Medications acetaminophen-oxyCODONE 325 mg-5 mg oral tablet 1, tablet, By Mouth, Every 4 hours, PRN, DX: Left sublclavian occlusion, # 150 tablet, Refills 0, Tot. Refills 0, Maintenance, as needed for pain, 06/05/21 6:30:00 EDT, Route to Pharmacy Electronically, [facility] Tablet, Partial fill upon... Start Date: 06/05/21 Stop Date: 06/26/21 Status: Ordered Aspirin = 81 mg, By Mouth, Daily, 0 Refills, Maintenance, 11/30/15 9:52:35 Start Date: 11/30/15 Status: Ordered Flonase 50 mcg/inh nasal spray 1 sprays, Daily, 0 Refills, Maintenance, 08/11/15 8:46:59 Start Date: 08/11/15 Status: Ordered gabapentin 300 mg oral capsule 1, capsule, By Mouth, 3 times a day, # 270 capsule, Refills 3, Tot. Refills 3, Maintenance, 12/06/19 10:18:00 EST, Route to Pharmacy Electronically, [facility], 174, cm, 06/18/19 13:29:00 EDT, Height Start Date: 12/06/19 Status: Ordered Lipitor 80 mg oral tablet 1 tablet = 80 mg, By Mouth, Daily, # 30 tablet, 0 Refills, Maintenance, 10/25/15 9:32:59, Tablet Start Date: 10/25/15 Status: Ordered Prilosec OTC = 20 mg, By Mouth, Daily, 0 Refills, Maintenance, 03/23/20 9:54:00 EDT Start Date: 03/23/20 Status: Ordered ProAir HFA 90 mcg/inh inhalation aerosol with adapter 2 puffs, Inhalation, 4 times a day, PRN Wheezing/Shortness of Breath, 0 Refills, Maintenance, 08/11/15 8:47:19 Start Date: 08/11/15 Status: Ordered Symbicort 160mcg/4.5mcg Inhaler 2 puffs, Inhalation, 2 times a day, 0 Refills, Maintenance, 08/11/15 8:47:49 Start Date: 08/11/15 Status: Ordered tamsulosin 0.4 mg oral capsule 0.4 mg, 1, capsule, By Mouth, Daily, Refills 0, Maintenance, 03/23/20 9:54:00 EDT Start Date: 03/23/20 Status: Ordered Vitamin B12 1000 mcg oral tablet 1 tablet = 1,000 mcg, By Mouth, Daily, 0 Refills, Maintenance, 08/11/15 8:49:18 Start Date: 08/11/15 Status: Ordered Zyrtec-D 1 tablet, By Mouth, Daily, 0 Refills, Maintenance, 08/11/15 8:48:20 Start Date: 08/11/15 Status: Ordered Problem List Condition Effective Dates Status Health Status Inform ant ETOH abuse, 5-6 beers daily(Confirmed) Active Asthma(Confirmed) Active Anserine bursitis(Confirmed) Active Past Marijuana use, has not used in 1-1.5 years(Confirmed) Active CVA (cerebral vascular accid ent), right occipital(Confirmed) Active COPD (chronic obstructive pu lmonary disease)(Confirmed) Active Cocaine abuse(Confirmed) Active Peripheral vision loss in le ft eye(Confirmed) Active GERD (gastroesophageal reflu x disease)(Confirmed) Active Hoarseness of voice(Confirmed) Active Hyperlipemia(Confirmed) Active Brain aneurysm, anterior communicating(Confirmed) Active Right Lung nodule, large bul mazin in right upper lobe 07/05/2015(Confirmed) Active Narcotic drug use, off stree t use of Percocet(Confirmed) Active Nasal polyps(Confirmed) Active Seizures(Confirmed) Active Subclavian steal syndrome(Confirmed) Active Current tobacco use most of his life, attempting to quit(Confirmed) Active Tubular adenoma(Confirmed) Active Social History Social History Type Response Smoking Status Former smoker; Other : quit nov 2017; entered on: 03/13/18 Sex
--- OUTSIDE RECORDS SUMMARY | 2023-11-11 08:42 | XMS_ITS | Continuity of Care Document ---
Author Name Unknown Organization [facility] Address [address] [place] [address]- Care Team Providers Care Business Center Representative Name Role Phone Po Zuri KING Primary Care Physician [phone] Encounter [facility] [place] Date(s): 02/06/21 - 03/08/21 [facility] [address] [place] [address]- Allergies, Adverse Reactions, Alerts Substance Reaction Severity Status Nyquil Cold Medicine 1 rash Persistent Moderat e Active Zithromax Z-Charlie 2 rash Persistent Moderate Act elena Morphine Sulfate ADD-[place] 3 heart races Persisten t Mild Active 1hives 2hives 3tachycardica Medications acetaminophen-oxyCODONE 325 mg-5 mg oral tablet 1, tablet, By Mouth, Every 4 hours, PRN, DX: Left sublclavian occlusion, # 150 tablet, Refills 0, Tot. Refills 0, Maintenance, as needed for pain, 03/02/21 15:07:00 EDT, Route to Pharmacy Electronically, [facility] Tablet, Partial fill upo... Start Date: 03/02/21 Stop Date: 03/23/21 Status: Ordered Aspirin = 81 mg, By [...]
--- OUTSIDE RECORDS SUMMARY | 2023-11-11 08:42 | XMS_ITS | Continuity of Care Document ---
Author Name Unknown Organization [facility] Address [address] [place] [address]- Care Team Providers Care Cross Tie Tram Loader Name Role Phone Po Zuri KING Primary Care Physician En[place] [facility] [place] Date(s): 02/07/23 - 02/14/23 [facility] [address] [place] [address]- Attending Physician: Jarrod Durbin MD Admitting Physician: Jarrod Durbin MD Allergies, Adverse Reactions, Alerts Substance Reaction Severity Status Nyquil Cold Medicine 1 rash Persistent Moderat e Active Zithromax Z-Charlie 2 rash Persistent Moderate Act elena Morphine Sulfate ADD-[place] 3 heart races Persisten t Mild Active 1hives 2hives 3tachycardica Medications acetaminophen-oxyCODONE 325 mg-5 mg oral tablet 1, tablet, By Mouth, Every 4 hours, PRN, DX: Left sublclavian occlusion, # 150 tablet, Refills 0, Tot. Refills 0, Maintenance, as needed for pain, 01/27/23 6:42:00 EDT, Route to Pharmacy Electronically, [facility] Tablet, Partial fill upon... Start Date: 01/27/23 Stop Date: 02/21/23 Status: Ordered Aspirin = 81 mg, By Mouth, Daily in AM, 0 Refills, Maintenance, 11/30/15 9:52:35 EST Start Date: 11/30/15 Status: Ordered Eliquis 2.5 mg oral tablet See Instructions, TAKE 1 TABLET BY MOUTH TWICE DAILY, # 60 tablet, 3 Refills, Maintenance, 12/19/2315:48:00 EST, [facility], 173, cm, 09/13/22 7:41:00 EST, Height, 84.5, kg, 09/12/2214:06:00 EST, Dry Weight Start Date: 12/18/22 Status: Ordered Flonase 50 mcg/inh nasal spray 1 sprays, Daily, 0 Refills, Maintenance, 08/11/15 8:46:59 Start Date: 08/11/15 Status: Ordered gabapentin 300 mg oral capsule See Instructions, TAKE 1 CAPSULE BY MOUTH 3 TIMES A DAY, # 270 capsule, Refills 3, Maintenance, 08/23/22 12:28:00 EDT, Instructions Replace Required Details, Route to Pharmacy Electronically, [facility], 170, cm, 03/01/22 9:08:00 EDT, He... [...] quit Confirmed Active Tubular adenoma Confirmed Active Vital Signs Most recent to oldest [Reference Range]: 1 Height 173 cm (02/07/23 1:33 PM) Weight 84.5 kg (02/07/23 1:33 PM) Oxygen Saturation [94-100 %] 95 % (02/07/23 1:33 PM) Pulse Rate [55-90 bpm] 99 bpm *H* (02/07/23 1:33 PM) Body Mass Index [18.5-24.99 kg/m2] 28.23 kg/m2 *H* (02/07/23 1:33 PM) Blood Pressure [90-138/55-84 mm Hg] 124/ 76mm Hg (02/07/23 1:33 PM) Mode of Delivery (Oxygen) Room air (02/07/23 1:33 PM) Blood pressure sites Arm, right (02/07/23 1:33 PM) Weight Obtained Via Patient/family state d (02/07/23 1:33 PM) Social History Social History Type Response Smoking Status Former smoker; Other : quit nov 2017; entered on: 03/13/18 Sex Note * Elvira Carter: PERFORM, SIGN, VERIFY Event Display: Patient Education/Instruction Authored Date: [id number] [facility] *[facility] [address] Clinical Summary Name TRACIE HOWE Age 62 Years 1960 PCP Zuri Feldman MD PCP Visit Date 02/07/2023 13:25:00 Additional Instructions: Scheduled Appointments?? Future Appointments ?No [...] Dose: apixaban (Eliquis 2.5 mg oral tablet) TAKE 1 TABLET BY MOUTH TWICE DAILY. Refills: 3. Next Dose: Aspirin 81 Milligram Oral Daily [...] 4 hours as needed as needed for pain for 25 Days. DX: Left sublclavian occlusion. Refills: 0. Next Dose: Pantoprazole (pantoprazole 40 mg oral delayed release tablet) 40 Milligram Oral Daily for 30 Days. Refills: 0. Next Dose: Tamsulosin (tamsulosin 0.4 mg oral capsule) 1 capsule Oral Daily in the morning. Next Dose: Varenicline (varenicline 1mg tablet) 1 tab(s) Oral twice a day. Next Dose: Allergy Info:?? Morphine Sulfate ADD-New Site; Zithromax Z-Charlie; Nyquil Cold Medicine Medications Given This Visit Future Orders ?No future orders Vital Signs Height 173 cm Weight 84.5 kg BMI 28.23 kg/m2 Blood Pressure 124 mm Hg/76 mm Hg Temperature Pulse Rate 99 bpm Respiratory Rate 02 Sat Mode of Delivery 95 %/Room air You can now view a summary of your hospital visit from the comfort of your home through a free online portal called [employer]. [employer] is a website that allows you to securely view your medical information including discharge summary, medications and follow-up visits. ??You can alsosend a secure electronic message to your doctor???s office to request appointments, renew medications or just ask a question. You can enroll at [email or web address] or register during your next office visit. [...] primary care provider, you may find a [facility] provider by calling [facility] at [phone]. For information about the plan of care [...] Team Personnel Name: Rehana Kinsey RN Position: [facility] SN RN Member Role: Primary Care Nurse Name: Nelly Liu RN Position: S RN Member Role: Primary Care Nurse Name: Stacey Quevedo RN Position: S RN Member Role: Primary Care Nurse Name: Zuri Feldman MD Position: Reference Physician Member Role: PCP Address: Address: [address] [place] [address] Name: Elvira [place] RN Position: S RN Member Role: Primary Care Nurse Care Team Related Persons Name: BRIANA HOWE Address: home [address] [place] [address] Name: KUMAR HOWE Address: [address] Name: RICARDO HOWE OR DAMON Address: [address] [address]
--- OUTSIDE RECORDS SUMMARY | 2023-11-11 08:42 | XMS_ITS | Continuity of Care Document ---
Author Name Unknown Organization [facility] Address [address] [place] [address]- Care Team Providers Care Station Master Name Role Phone Po Zuri KING Primary Care Physician [phone] Encounter [facility] [place] Date(s): 07/10/22 - 08/09/22 [facility] [address] [place] [address]- Allergies, Adverse Reactions, Alerts Substance Reaction Severity Status Nyquil Cold Medicine 1 rash Persistent Moderat e Active Zithromax Z-Charlie 2 rash Persistent Moderate Act elena Morphine Sulfate ADD-[place] 3 heart races Persisten t Mild Active 1hives 2hives 3tachycardica Medications acetaminophen-oxyCODONE 325 mg-5 mg oral tablet 1, tablet, By Mouth, Every 4 hours, PRN, DX: Left sublclavian occlusion, # 150 tablet, Refills 0, Tot. Refills 0, Maintenance, as needed for pain, 07/30/22 9:15:00 EDT, Route to Pharmacy Electronically, [facility] Tablet, Partial fill upon... Start Date: 07/30/22 Status: Ordered Aspirin = 81 mg, By Mouth, Daily in AM, 0 Refills, Maintenance, 11/30/15 9:52:35 EST Start Date: 11/30/15 Status: Ordered Eliquis 2.5 mg oral tablet 1 tablet = 2.5 mg, By Mouth, 2 times a day, # 180 tablet, 0 Refills, Maintenance, 07/05/22 8:42:00 EDT, Tablet, [facility], Partial fill upon patient request if the prescription is for a schedule II opioid drug., 170, cm, 03/01/22 9:08:00... Start Date: 07/05/22 Status: Ordered Flonase 50 mcg/inh nasal spray 1 sprays, Daily, 0 Refills, Maintenance, 08/11/15 8:46:59 Start Date: 08/11/15 Status: Ordered gabapentin 300 mg oral capsule See Instructions, TAKE 1 CAPSULE BY MOUTH 3 TIMES A DAY, # 270 capsule, Refills 0, Instructions Replace Required Details, Route to Pharmacy Electronically, [facility], 170, cm, :08:00 EDT, Height Start Date: 04/19/22 Status: Ordered Lipitor 80 mg oral tablet 1 tablet = 80 mg, By Mouth, Daily, # 30 tablet, 0 Refills, Maintenance, 10/25/15 9:32:59, Tablet Start Date: 10/25/15 Status: Ordered Prilosec OTC = 20 mg, By Mouth, Daily in AM, 0 Refills, Maintenance, 03/23/20 9:54:00 EDT Start [...] opioid drug. Start Date: 07/25/21 Status: Ordered Vitamin B12 1000 mcg oral [...] Percocet Confirmed Active Nasal polyps Confirmed Active Obese class I Confirmed Active Seizures Confirmed Active Subclavian steal syndrome Confirmed Active Current tobacco use most of his life, attempting to quit Confirmed Active Tubular adenoma Confirmed Active Social History Social History Type Response Smoking Status Former smoker; Other : quit nov 2017; entered on: 03/13/18 Sex Patient Care team information Personnel Name: Zuri Feldman MD Address: Address: [address] [place], [place] [address]
--- OUTSIDE RECORDS SUMMARY | 2023-11-11 08:42 | XMS_ITS | Continuity of Care Document ---
Author Name Unknown Organization [facility] Address [address] [place] [address]- Care Team Providers Care Sexual Assault Social Worker Name Role Phone Po Zuri KING Primary Care Physician [phone] Encounter [facility] [place] Date(s): 10/15/21 - 11/14/21 [facility] [address] [place] [address]- Allergies, Adverse Reactions, Alerts Substance Reaction Severity Status Nyquil Cold Medicine 1 rash Persistent Moderat e Active Zithromax Z-Charlie 2 rash Persistent Moderate Act elena Morphine Sulfate ADD-[place] 3 heart races Persisten t Mild Active 1hives 2hives 3tachycardica Medications acetaminophen-oxyCODONE 325 mg-5 mg oral tablet 1, tablet, By Mouth, Every 4 hours, PRN, DX: Left sublclavian occlusion, # 150 tablet, Refills 0, Tot. Refills 0, Maintenance, as needed for pain, 11/08/21 16:21:00 EST, Route to Pharmacy Electronically, [facility] Tablet, Partial fill upo... Start Date: 11/08/21 Stop Date: 11/29/21 Status: Ordered Aspirin = 81 mg, By Mouth, Daily in AM, 0 Refills, Maintenance, 11/30/15 9:52:35 EST Start Date: 11/30/15 Status: Ordered Flonase 50 mcg/inh nasal spray 1 sprays, Daily, 0 Refills, Maintenance, 08/11/15 8:46:59 Start Date: 08/11/15 Status: Ordered gabapentin 300 mg oral capsule 1, capsule, By Mouth, 3 times a day, # 270 capsule, Refills 0, Route to Pharmacy Electronically, [facility], 170.18, cm, 08/01/21 6:09:00 EDT, Height Start Date: 11/02/21 Status: Ordered Lipitor 80 mg oral tablet [...]
--- OUTSIDE RECORDS SUMMARY | 2023-11-11 08:42 | XMS_ITS | Continuity of Care Document ---
Author Name Unknown Organization [facility] Address [address] [place] [address]- Care Team Providers Care Video Photographer Name Role Phone Po Zuri KING Primary Care Physician [phone] [place] [facility] [place](s): 02/24/23 - 03/26/23 [facility] [address] [place] [address]- Allergies, Adverse Reactions, Alerts Substance Reaction Severity Status Nyquil Cold Medicine 1 rash Persistent Moderat e Active Zithromax Z-Charlie 2 rash Persistent Moderate Act elena Morphine Sulfate ADD-[place] 3 heart races Persisten t Mild Active 1hives 2hives 3tachycardica Medications acetaminophen-oxyCODONE 325 mg-5 mg oral tablet 1, tablet, By Mouth, Every 4 hours, PRN, DX: Left sublclavian occlusion, # 150 tablet, Refills 0, Tot. Refills 0, Maintenance, as needed for pain, 03/11/23 11:20:00 EDT, Route to Pharmacy Electronically, [facility] Tablet, Partial fill upo... Start Date: 03/11/23 Stop Date: 04/05/23 Status: Ordered Aspirin = 81 mg, By Mouth, Daily in AM, 0 Refills, Maintenance, 11/30/15 9:52:35 EST Start Date: 11/30/15 Status: Ordered Eliquis 2.5 mg oral tablet See Instructions, TAKE 1 TABLET BY MOUTH TWICE DAILY, # 60 tablet, 3 Refills, Maintenance, 12/19/2315:48:00 EST, [facility], 173, cm, 09/13/22 7:41:00 EST, Height, 84.5, kg, 09/12/2214:06:00 EST, Dry Weight Start Date: 3/1/23 Status: Ordered Flonase 50 mcg/inh nasal spray 1 sprays, Daily, 0 Refills, Maintenance, 08/11/15 8:46:59 Start Date: 08/11/15 Status: Ordered gabapentin 300 mg oral capsule See Instructions, TAKE 1 CAPSULE BY MOUTH 3 TIMES A DAY, # 270 capsule, Refills 3, Maintenance, 08/23/22 12:28:00 EDT, Instructions Replace Required Details, Route to Pharmacy Electronically, [facility], 170, cm, 03/01/22 9:08:00 EDT, He... Start [...] Team Personnel Name: Rehana Kinsey RN Position: [facility] SN RN Member Role: Primary Care Nurse Name: Nelly Liu RN Position: S RN Member Role: Primary Care Nurse Name: Stacey Quevedo RN Position: S RN Member Role: Primary Care Nurse Name: Zuri Feldman MD Position: Reference Physician Member Role: PCP Address: Address: [address] [place] [address] Name: Elvira [place] RN Position: S RN Member Role: Primary Care Nurse Care Team Related Persons Name: BRIANA HOWE Address: home [address] [place] [id number] Name: KUMAR HOWE Address: home [address] [place] [address] Name: RICARDO HOWE OR DAMON Address: [address]
--- OUTSIDE RECORDS SUMMARY | 2023-11-11 08:42 | XMS_ITS | Continuity of Care Document ---
Author Name Unknown Organization [facility] Address [address] [place] [address]- Care Team Providers Care Technical Sales Representative Name Role Phone Zuri Feldman MD Primary Care Physician [place] [facility] [id number] Date(s): 12/01/20 - 12/08/20 [facility] [address] [place] [address]- Attending Physician: Jarrod Durbin MD Admitting Physician: Jarrod Durbin MD Referring Physician: Zuri Feldman MD Allergies, Adverse Reactions, Alerts Substance Reaction Severity Status Nyquil Cold Medicine 1 rash Persistent Moderat e Active Zithromax Z-Charlie 2 rash Persistent Moderate Act elena Morphine Sulfate ADD-[place] 3 heart races Persisten t Mild Active 1hives 2hives 3tachycardica Medications acetaminophen-oxyCODONE 325 mg-5 mg oral tablet 1, tablet, By Mouth, Every 4 hours, PRN, DX: Left sublclavian occlusion, # 150 tablet, Refills 0, Tot. Refills 0, Maintenance, as needed for pain, 12/06/20 7:47:00 EST, Route to Pharmacy Electronically, [facility] Tablet, Partial fill upon... Start Date: 12/06/20 Stop Date: 12/27/20 Status: Ordered Aspirin = 81 mg, By [...]
--- OUTSIDE RECORDS SUMMARY | 2023-11-11 08:42 | XMS_ITS | Continuity of Care Document ---
Author Name Unknown Organization [facility] Address [address] [place] [address]- Care Team Providers Care Telesales Team Leader Name Role Phone Po Zuri KING Primary Care Physician Encounter [facility] [place] Date(s): 08/01/23 - 08/31/23 [facility] [address] [place] [address]- Allergies, Adverse Reactions, Alerts Substance Reaction Severity Status Nyquil Cold Medicine 1 rash Persistent Moderat e Active Zithromax Z-Charlie 2 rash Persistent Moderate Act elena Morphine Sulfate ADD-[place] 3 heart races Persisten t Mild Active 1hives 2hives 3tachycardica Medications acetaminophen-oxyCODONE 325 mg-5 mg oral tablet 1, tablet, By Mouth, Every 4 hours, PRN, DX: Left sublclavian occlusion, # 150 tablet, Refills 0, Tot. Refills 0, Maintenance, as needed for pain, 07/07/23 21:17:00 EDT, Route to Pharmacy Electronically, [facility] Tablet, Partial fill upo... Start Date: 07/07/23 Stop Date: 08/01/23 Status: Ordered Aspirin = 81 mg, By Mouth, Daily in AM, 0 Refills, Maintenance, 11/30/15 9:52:35 EST Start Date: 11/30/15 Status: Ordered Eliquis 2.5 mg oral tablet 1 tablet, By Mouth, 2 times a day, # 56 tablet, 3 Refills, Maintenance, 06/13/23 11:43:00 EDT, [facility], 173, cm, 02/07/23 13:33:00 EDT, Height, 84.5, kg, 09/12/22 14:06:00 EST, DryWeight Start Date: 06/13/23 Status: Ordered Flonase 50 mcg/inh nasal spray 1 sprays, Daily, 0 Refills, Maintenance, 08/11/15 8:46:59 Start Date: 08/11/15 Status: Ordered gabapentin 300 mg oral capsule See Instructions, TAKE 1 CAPSULE BY MOUTH 3 TIMES A DAY, # 270 capsule, Refills 0, Tot. Refills 0, Maintenance, 07/07/23 21:17:00 EDT, Instructions Replace Required Details, Route to Pharmacy Electronically, [facility], 173, cm, 02/07/23 1... Start Date: 07/07/23 Status: Ordered Lipitor 80 mg oral tablet 1 tablet = 80 mg, By Mouth, Daily, # 30 tablet, 0 Refills, Maintenance, 10/25/15 9:32:59, Tablet Start Date: 10/25/15 Status: Ordered oxyCODONE 5 mg oral tablet 5 mg, 1, tablet, By Mouth, Every 6 hours, PRN, # 30 tablet, Refills 0, Tot. Refills 0, Maintenance,as needed for pain, 08/09/23 12:33:00 EDT, Route to Pharmacy Electronically, [id number], Partial fill upon patient request if the prescript... Start Date: 08/09/23 Status: Ordered oxyCODONE 5 mg oral tablet 5 mg, 1, tablet, By Mouth, Every 6 hours, PRN, # 30 tablet, Refills 0, Tot. Refills 0, Maintenance,as needed for pain, 08/27/23 8:29:00 EST, Route to Pharmacy Electronically, [facility], Partial fill upon patient request if the prescripti... Start Date: 08/27/23 Status: Ordered pantoprazole 40 mg oral delayed [...] Team Personnel Name: Rehana Kinsey RN Position: [facility] RN Member Role: Primary Care Nurse Name: Nelly Liu RN Position: S RN Member Role: Primary Care Nurse Name: Stacey Quevedo RN Position: S RN Member Role: Primary Care Nurse Name: Zuri Feldman MD Position: Reference Physician Member Role: PCP Address: Address: [address] [place] [id number] Name: Elvira [place] RN Position: S RN Member Role: Primary Care Nurse Care Team Related Persons Name: BRIANA HOWE Address: home [address] [place] [id number] Name: KUMAR HOWE Address: home [address] [place] [address] Name: RICARDO HOWE Address: home [address] [place] [address]
--- OUTSIDE RECORDS SUMMARY | 2023-11-11 08:42 | XMS_ITS | Continuity of Care Document ---
Author Name Unknown Organization [facility] Address [address] [place] [address]- Care Team Providers Care Apartment Maintenance Manager Name Role Phone Po Zuri KING Primary Care Physician [place] [facility] [place] - 04/19/21 [facility] [address] [place] [address]- Allergies, Adverse Reactions, Alerts Substance Reaction Severity Status Nyquil Cold Medicine 1 rash Persistent Moderat e Active Zithromax Z-Charlie 2 rash Persistent Moderate Act elena Morphine Sulfate ADD-[place] 3 heart races Persisten t Mild Active 1hives 2hives 3tachycardica Medications acetaminophen-oxyCODONE 325 mg-5 mg oral tablet 1, tablet, By Mouth, Every 4 hours, PRN, DX: Left sublclavian occlusion, # 150 tablet, Refills 0, Tot. Refills 0, Maintenance, as needed for pain, 03/20/21 15:17:00 EDT, Route to Pharmacy Electronically, [facility] Tablet, Partial fill upo... Start Date: 03/20/21 Stop Date: 04/10/21 Status: Ordered Aspirin = 81 mg, By [...]
--- OUTSIDE RECORDS SUMMARY | 2023-11-11 08:42 | XMS_ITS | Continuity of Care Document ---
Author Name Unknown Organization [facility] Address [address] [place] [address]- Care Team Providers Care Cane Burner Name Role Phone Zuri Feldman MD Primary Care Physician [phone] Encounter [facility] [place] Date(s): 05/29/23 - 09/26/23 [facility] [address] [place], [place] [address] Attending Physician: Sharon KING, Salbador Gurrola Admitting Physician: Salbador Herrera MD Referring Physician: Zuri Feldman MD Allergies, Adverse Reactions, Alerts Substance Reaction Severity Status Nyquil Cold Medicine 1 rash Persistent Moderat e Active Zithromax Z-Charlie 2 rash Persistent Moderate Act elena Morphine Sulfate ADD-[place] 3 heart races Persisten t Mild Active 1hives 2hives 3tachycardica Medications Aspirin = 81 mg, By Mouth, Daily in AM, 0 Refills, Maintenance, 11/30/15 9:52:35 EST Start Date: 11/30/15 Status: Ordered Eliquis 2.5 mg oral tablet 1 tablet, By Mouth, 2 times a day, # 56 tablet, 3 Refills, Maintenance, 06/13/23 11:43:00 EDT, [facility], 173, cm, 02/07/23 13:33:00 EDT, [...] Tot. Refills 0, Maintenance,as needed for pain, 09/14/23 15:52:00 EST, Route to Pharmacy Electronically, [id number], Partial fill upon patient request if the prescript... Start Date: 09/14/23 Status: Ordered pantoprazole 40 mg oral delayed [...] Team Personnel Name: Rehana Kinsey RN Position: [facility] RN Member Role: Primary Care Nurse Name: Nelly Liu RN Position: S RN Member Role: Primary Care Nurse Name: Stacey Quevedo RN Position: S RN Member Role: Primary Care Nurse Name: Zuri Feldman MD Position: Reference Physician Member Role: PCP Address: Address: [address] [place] [address] Name: Elvira [place] RN Position: S RN Member Role: Primary Care Nurse Care Team Related Persons Name: BRIANA HOWE Address: home [address] [place] [address] Name: KUMAR HOWE Address: home [address] [place] [address] Name: RICARDO HOWE OR DAMON Address: [address] [address]
--- OUTSIDE RECORDS SUMMARY | 2023-11-11 08:42 | XMS_ITS | Continuity of Care Document ---
Author Name Unknown Organization [facility] Se rvices Address [address] [place] [address]- Care Team Providers Care Pr Intern Name Role Phone Po Zuri KING Primary Care Physician [phone] [place] [facility] [place]s): 04/16/21 - 05/16/21 [facility] [address] [place] [address]- Allergies, Adverse Reactions, Alerts Substance Reaction Severity Status Nyquil Cold Medicine 1 rash Persistent Moderat e Active Zithromax Z-Charlie 2 rash Persistent Moderate Act elena Morphine Sulfate ADD-[place] 3 heart races Persisten t Mild Active 1hives 2hives 3tachycardica Medications acetaminophen-oxyCODONE 325 mg-5 mg oral tablet 1, tablet, By Mouth, Every 4 hours, PRN, DX: Left sublclavian occlusion, # 150 tablet, Refills 0, Tot. Refills 0, Maintenance, as needed for pain, 05/10/21 6:33:00 EDT, Route to Pharmacy Electronically, [facility] Tablet, Partial fill upon... Start Date: 05/10/21 Stop Date: 05/31/21 Status: Ordered Aspirin = 81 mg, By [...]
--- OUTSIDE RECORDS SUMMARY | 2023-11-11 08:42 | XMS_ITS | Continuity of Care Document ---
Author Name Unknown Organization [facility] Address [address] [place] [address]- Care Team Providers Care Gold Assayer Name Role Phone Po Zuri KING Primary Care Physician Encounter [facility] [place] Date(s): 07/23/21 - 08/22/21 [facility] [address] [place] [address]- Allergies, Adverse Reactions, Alerts Substance Reaction Severity Status Nyquil Cold Medicine 1 rash Persistent Moderat e Active Zithromax Z-Charlie 2 rash Persistent Moderate Act elena Morphine Sulfate ADD-[place] 3 heart races Persisten t Mild Active 1hives 2hives 3tachycardica Medications acetaminophen-oxyCODONE 325 mg-5 mg oral tablet 1, tablet, By Mouth, Every 4 hours, PRN, DX: Left sublclavian occlusion, # 150 tablet, Refills 0, Tot. Refills 0, Maintenance, as needed for pain, 08/15/21 16:25:00 EDT, Route to Pharmacy Electronically, [facility]t, Partial fill upo... Start Date: 08/15/21 Stop Date: 09/05/21 Status: Ordered Aspirin = 81 mg, By [...]
--- OUTSIDE RECORDS SUMMARY | 2023-11-11 08:42 | XMS_ITS | Continuity of Care Document ---
Author Name Unknown Organization [facility] Address [address] [place] [address]- Care Team Providers Care Warning Analyst Name Role Phone Po Zuri KING Primary Care Physician [phone] [place] [facility] [place] 06/19/21 - 07/19/21 [facility] [address] [place] [address]- Allergies, Adverse Reactions, Alerts Substance Reaction Severity Status Nyquil Cold Medicine 1 rash Persistent Moderat e Active Zithromax Z-Charlie 2 rash Persistent Moderate Act elena Morphine Sulfate ADD-[place] 3 heart races Persisten t Mild Active 1hives 2hives 3tachycardica Medications acetaminophen-oxyCODONE 325 mg-5 mg oral tablet 1, tablet, By Mouth, Every 4 hours, PRN, DX: Left sublclavian occlusion, # 150 tablet, Refills 0, Tot. Refills 0, Maintenance, as needed for pain, 06/28/21 16:28:00 EDT, Route to Pharmacy Electronically, [facility] Tablet, Partial fill upo... Start Date: 06/28/21 Stop Date: 07/19/21 Status: Ordered Aspirin = 81 mg, By [...]
--- OUTSIDE RECORDS SUMMARY | 2023-11-11 08:42 | XMS_ITS | Continuity of Care Document ---
Author Name Unknown Organization [facility] ter Address [address] [place] [address]- Care Team Providers Care Test And Research Reactor Operator Name Role Phone Po Zuri KING Primary Care Physician [phone] [place] [facility] [place](s): 01/28/22 - 01/28/[address] [address] Discharge Disposition: A-D/C Home Attending Physician: Jarrod Durbin MD Admitting Physician: Jarrod Durbin MD Referring Physician: Jarrod Durbin MD Allergies, Adverse Reactions, Alerts Substance Reaction Severity Status Nyquil Cold Medicine 1 rash Persistent Moderat e Active Zithromax Z-Charlie 2 rash Persistent Moderate Act elena Morphine Sulfate ADD-[place] 3 heart races Persisten t Mild Active 1hives 2hives 3tachycardica Medications acetaminophen-oxyCODONE 325 mg-5 mg oral tablet 1, tablet, By Mouth, Every 4 hours, PRN, DX: Left sublclavian occlusion, # 150 tablet, Refills 0, Tot. Refills 0, Maintenance, as needed for pain, 01/18/22 8:21:00 EDT, Route to Pharmacy Electronically, [facility] Tablet, Partial fill upon... Start Date: 01/18/22 Stop Date: 02/17/22 Status: Ordered Aspirin = 81 mg, By [...] 0, Route to Pharmacy Electronically, [facility], 170, cm, 01/17/22 9:28:00 EDT, Height Start Date: 01/25/22 Status: Ordered Lipitor 80 mg oral tablet [...] attempting to quit(Confirmed) Active Tubular adenoma(Confirmed) Active Vital Signs Most recent to oldest [Reference Range]: 1 2 3 Weight 88.5 kg (01/28/22 6:30 AM) Oxygen Saturation [94-100 %] 95 % (01/28/22 12:15 PM) 96 % (01/28/22 12:00 PM) 94 % (01/28/22 11:30 AM) Pulse Rate [55-90 bpm] 82 bpm (01/28/22 6:30 AM) Blood Pressure [90-138/55-84 mm Hg] 140/63mm Hg *H* (01/28/22 12:15 PM) 122/63mm Hg (01/28/22 12:00 PM) 110/93mm Hg (01/28/22 11:30 AM) Respiratory Rate [16-30 br/min] 14 br/min *L* (01/28/22 12:15 PM) 18 br/min (01/28/22 12:00 PM) 14 br/min *L* (01/28/22 11:30 AM) Temperature [96.8-100.4 DegF] 97.4 DegF (01/28/22 12:00 PM) 97.5 DegF (01/28/22 9:15 AM) 97.8 DegF (01/28/22 6:30 AM) Liters per Minute 6 L/min (01/28/22 9:15 AM) Mode of Delivery (Oxygen) Room air (01/28/22 12:00 PM) Room air (01/28/22 9:45 AM) Room air (01/28/22 9:30 AM) Blood pressure sites Arm, right (01/28/22 12:00 PM) Arm, right (01/28/22 9:15 AM) Arm, right (01/28/22 6:30 AM) Temperature Route Temporal (01/28/22 12:00 PM) Temporal (01/28/22 9:15 AM) Temporal (01/28/22 6:30 AM) Weight Obtained Via Standing scale (01/28/22 6:30 AM) Social History Social History Type Response Smoking Status Former smoker; Other : quit nov 2017; entered on: 03/13/18 Sex
--- OUTSIDE RECORDS SUMMARY | 2023-11-11 08:42 | XMS_ITS | Continuity of Care Document ---
Author Name Unknown Organization [facility] Address [address] [place] [address]- Care Team Providers Care Credit Representative Name Role Phone Po Zuri KING Primary Care Physician En[place] [facility] [place](s[place] 07/26/22 - 08/25/22 [facility] [address] [place] [address]- Allergies, Adverse Reactions, Alerts Substance Reaction Severity Status Nyquil Cold Medicine 1 rash Persistent Moderat e Active Zithromax Z-Charlie 2 rash Persistent Moderate Act elena Morphine Sulfate ADD-[place] 3 heart races Persisten t Mild Active 1hives 2hives 3tachycardica Medications acetaminophen-oxyCODONE 325 mg-5 mg oral tablet 1, tablet, By Mouth, Every 4 hours, PRN, DX: Left sublclavian occlusion, # 150 tablet, Refills 0, Tot. Refills 0, Maintenance, as needed for pain, 08/23/22 15:59:00 EDT, Route to Pharmacy Electronically, [facility] Tablet, Partial fill upo... Start Date: 08/23/22 Status: Ordered Aspirin = 81 mg, By [...] to Pharmacy Electronically, [facility], 170, cm, 03/01/22 9:08:00 EDT, [...] Personnel Name: Zuri Feldman MD Address: Address: [address] [place] [id number]
--- OUTSIDE RECORDS SUMMARY | 2023-11-11 08:42 | XMS_ITS | Continuity of Care Document ---
Author Name Unknown Organization [facility] Address [address] [place] [address]- Care Team Providers Care Metaphysician Name Role Phone Zuri Feldman MD Primary Care Physician Encounter [facility] Date(s): 08/27/23 - 09/03/23 [facility] [address] [place] [address]- Encounter Diagnosis Anserine bursitis(Discharge Diagnosis) - 08/27/23 Left subclavian artery occlusion(Discharge Diagnosis) - 08/27/23 Attending Physician: Salbador Herrera MD Admitting Physician: Salbador Herrera MD Referring Physician: Zuri Feldman MD Allergies, Adverse Reactions, Alerts Substance Reaction Severity Status Nyquil Cold Medicine 1 rash Persistent Moderat e Active Zithromax Z-Charlie 2 rash Persistent Moderate Act elena Morphine Sulfate ADD-[place] 3 heart races Persisten t Mild Active [...] 12:33:00 EDT, Route to Pharmacy Electronically, [id number], Partial fill upon patient request if the [...] quit Confirmed Active Tubular adenoma Confirmed Active Diagnosis Diagnosis Type Effective Dates Health Status Clinical Service Informant Anserine bursitis Discharge Diagnosis 08/27/23 Left subclavian artery occlusion Discharge Diagnosis 08/27/23 Social History Social History Type Response Smoking Status Former smoker; Other : quit nov 2017; entered on: 03/13/18 Sex Note * Dereje Khan: PERFORM, SIGN, VERIFY Event Display: Patient Education/Instruction Authored Date: [id number] [facility] [address] Clinical Summary Name TRACIE HOWE Age 63 Years 1960 PCP Zuri Feldman MD PCP Visit Date 08/27/2023 06:35:00 Additional Instructions: Scheduled Appointments?? Future Appointments ?No Future Appointments Scheduled Follow-Up Instructions ?? With: Address: When: Sharon KING, Salbador Gurrola 08/27/2023 12:00 AM Comments: renewal of reduced amount of pain meds repeat CTA neck re-do carotid subclavian bypass Diagnosis Other bursitis of knee, unspecified knee; Atherosclerosis of other arteries Medications: Please continue your medications until treatment is completed or stopped by your provider. Discuss any questions related to medications with your provider. Medications to Continue Taking That Have Changed [facility], [address] [place] [id number], [phone] - Oxycodone (oxyCODONE 5 mg oral tablet) 1 tab(s) Oral every 6 hours as needed as needed for pain. Refills: 0. Next Dose: These medications were not printed or sent to your pharmacy - Oxycodone (oxyCODONE 5 mg oral tablet) 1 tab(s) Oral every 6 hours as needed as needed for pain. Refills: 0. Next Dose: Medications to Continue with No Changes These medications were not printed or sent to your pharmacy Albuterol (ProAir HFA 90 mcg/inh inhalation aerosol with adapter) 2 puff(s) Inhalation 4 times a day as needed Wheezing/Shortness of Breath. Next Dose: apixaban (Eliquis 2.5 mg oral tablet) 1 tab(s) Oral twice a day. Refills: 3. Next Dose: Aspirin 81 Milligram [...] BY MOUTH 3 TIMES A DAY. Refills: 0. Next Dose: Oxycodone / Acetaminophen (acetaminophen-oxyCODONE 325 [...] day. Next Dose: Allergy Info:?? Morphine Sulfate ADD-[place]; Zithromax Z-Charlie; Nyquil Cold Medicine Medications Given This Visit Future Orders ?BUN? Order Date:08/27/23?- Complete by?08/27/23 ?CT Angio Neck? Order Date:08/27/23?- Complete on or after?08/27/23 ?Creatinine? Order Date:08/27/23?- Complete by?08/27/23 Vital Signs Height Weight BMI Blood Pressure / Temperature Pulse Rate Respiratory Rate 02 Sat Mode of Delivery / You can now view a summary of your hospital visit from the comfort of your home through a free online portal called [employer]. [employer] is a website that allows you to securely view your medical information including discharge summary, medications and follow-up visits. ??You can alsosend a secure electronic message to your doctor???s office to request appointments, renew medications or just ask a question. You can enroll at [email or web address] or register during your next office visit. [...] primary care provider, you may find a [facility] provider by calling [facility] at [phone]. [facility], in keeping with [facility] guidance, no longer requires face masks for staff, patientsor visitors in most situations. Similar to time spent indoors at other locations, there is the chance that you were exposed to respiratory viruses during your time with us (such as flu or COVID-19).? If you develop symptoms concerning for a viral respiratory infection, please seek testing (and treatment if indicated) from your medical provider or home test kit. For information about the plan of care [...] Team Personnel Name: Rehana Kinsey RN Position: [facility] RN Member Role: Primary Care Nurse Name: Nelly Liu RN Position: S RN Member Role: Primary Care Nurse Name: Stacey Quevedo RN Position: S RN Member Role: Primary Care Nurse Name: Zuri Feldman MD Position: Reference Physician Member Role: PCP Address: Address: [address] [place] [address] Name: Elvira Jefferson RN Position: S RN Member Role: Primary Care Nurse Care Team Related Persons Name: BRIANA HOWE Address: [address] [address] Name: KUMAR HOWE Address: [address] Name: RICARDO HOWE OR DAMON Address: [address] [address]
--- OUTSIDE RECORDS SUMMARY | 2023-11-11 08:42 | XMS_ITS | Continuity of Care Document ---
Author Name Unknown Organization [facility] Address [address] [place] [address]- Care Team Providers Care Chief Design Engineer Name Role Phone Po Zuri KING Primary Care Physician [phone] Encounter [facility] [place] Date(s): 06/17/23 - 07/17/23 [facility] [address] [place] [address]- Allergies, Adverse Reactions, Alerts Substance Reaction Severity Status Nyquil Cold Medicine 1 rash Persistent Moderat e Active Zithromax Z-Charlie 2 rash Persistent Moderate Act elena Morphine Sulfate ADD-[place] 3 heart races Persisten t Mild Active [...] Team Personnel Name: Rehana Kinsey RN Position: [facility] SN RN Member Role: Primary Care Nurse Name: Nelly Liu RN Position: S RN Member Role: Primary Care Nurse Name: Stacey Quevedo RN Position: S RN Member Role: Primary Care Nurse Name: Zuri Feldman MD Position: Reference Physician Member Role: PCP Address: Address: [address] [place] [address] Name: Elvira Jefferson RN Position: S RN Member Role: Primary Care Nurse Care Team Related Persons Name: BRIANA HOWE Address: home [address] [place] [address] Name: KUMAR HOWE Address: home [address] [place] [address] Name: RICARDO HOWE OR DAMON Address: [address]
--- OUTSIDE RECORDS SUMMARY | 2023-11-11 08:42 | XMS_ITS | Continuity of Care Document ---
Author Name Unknown Organization [facility] Address [address] [place] [address]- Care Team Providers Care Construction Crew Member Name Role Phone Po Zuri KING Primary Care Physician [phone] [facility] [place] Date(s): 12/25/20 - 01/24/21 [facility] [address] [place] [address]- Allergies, Adverse Reactions, Alerts Substance Reaction Severity Status Nyquil Cold Medicine 1 rash Persistent Moderat e Active Zithromax Z-Charlie 2 rash Persistent Moderate Act elena Morphine Sulfate ADD-[place] 3 heart races Persisten t Mild Active 1hives 2hives 3tachycardica Medications acetaminophen-oxyCODONE 325 mg-5 mg oral tablet 1, tablet, By Mouth, Every 4 hours, PRN, DX: Left sublclavian occlusion, # 150 tablet, Refills 0, Tot. Refills 0, Maintenance, as needed for pain, 01/12/21 14:35:00 EDT, Route to Pharmacy Electronically, [facility] Tablet, Partial fill upo... Start Date: 01/12/21 Stop Date: 02/02/21 Status: Ordered Aspirin = 81 mg, By [...]
--- OUTSIDE RECORDS SUMMARY | 2023-11-11 08:42 | XMS_ITS | Continuity of Care Document ---
Author Name Unknown Organization [facility] Address [address] [place] [address]- Care Team Providers Care Meter/Relay Craftsman Name Role Phone Zuri Feldman MD Primary Care Physician Encounter [facility] [place] Date(s): 08/18/20 - 08/25/20 [facility] [address] [place] [address]- Attending Physician: Jarrod Durbin MD Admitting Physician: Jarrod Durbin MD Referring Physician: Zuri Feldman MD Allergies, Adverse Reactions, Alerts Substance Reaction Severity Status Nyquil Cold Medicine 1 rash Persistent Moderat e Active Zithromax Z-Charlie 2 rash Persistent Moderate Act elena Morphine Sulfate ADD-[place] 3 heart races Persisten t Mild Active 1hives 2hives 3tachycardica Medications acetaminophen-oxyCODONE 325 mg-5 mg oral tablet 1, tablet, By Mouth, Every 4 hours, PRN, DX: Left sublclavian occlusion, # 130 tablet, Refills 0, Tot. Refills 0, Maintenance, as needed for pain, 08/25/20 9:48:00 EST, Route to Pharmacy Electronically, [facility] Tablet, Partial fill upon... Start Date: 08/25/20 Stop Date: 09/15/20 Status: Ordered Aspirin = 81 mg, By [...] recent to oldest [Reference Range]: 1 Height 174 cm (08/18/20 10:42 AM) Weight 83.9 kg (08/18/20 10:42 AM) Pulse Rate [55-90 bpm] 80 bpm (08/18/20 10:42 AM) Body Mass Index [18.5-24.99] 27.71 *H* (08/18/20 10:42 AM) Blood Pressure [90-138/55-84 mm Hg] 132/ 84mm Hg (08/18/20 10:42 AM) Blood pressure sites Arm, right (08/18/20 10:42 AM) Weight Obtained Via Patient/family state d (08/18/20 10:42 AM) Social History Social History Type Response Smoking Status Former smoker; Other : quit nov 2017; entered on: 03/13/18 Sex
--- OUTSIDE RECORDS SUMMARY | 2023-11-11 08:42 | XMS_ITS | Continuity of Care Document ---
Author Name Unknown Organization [facility] Address [address] [place] [address]- Care Team Providers Care Robotics Engineer Name Role Phone Po Zuri KING Primary Care Physician En[place] [facility] [place] Date(s): 12/03/21 - 01/02/22 [facility] [address] [place] [address]- Allergies, Adverse Reactions, Alerts Substance Reaction Severity Status Nyquil Cold Medicine 1 rash Persistent Moderat e Active Zithromax Z-Charlie 2 rash Persistent Moderate Act elena Morphine Sulfate ADD-[place] 3 heart races Persisten t Mild Active 1hives 2hives 3tachycardica Medications acetaminophen-oxyCODONE 325 mg-5 mg oral tablet 1, tablet, By Mouth, Every 4 hours, PRN, DX: Left sublclavian occlusion, # 150 tablet, Refills 0, Tot. Refills 0, Maintenance, as needed for pain, 12/28/21 9:32:00 EST, Route to Pharmacy Electronically, [facility] Tablet, Partial fill upon... Start Date: 12/28/21 Stop Date: 01/18/22 Status: Ordered Aspirin = 81 mg, By [...]
--- OUTSIDE RECORDS SUMMARY | 2023-11-11 08:42 | XMS_ITS | Continuity of Care Document ---
Author Name Unknown Organization [facility] Address [address] [place] [address]- Care Team Providers Care Supervisor [employer] Elements Name Role Phone Po Zuri KING Primary Care Physician [phone] [place] [facility] [place](s): 01/28/22 - 02/27/22 [facility] [address] [place] [address]- Allergies, Adverse Reactions, Alerts Substance Reaction Severity Status Nyquil Cold Medicine 1 rash Persistent Moderat e Active Zithromax Z-Charlie 2 rash Persistent Moderate Act elena Morphine Sulfate ADD-[place] 3 heart races Persisten t Mild Active 1hives 2hives 3tachycardica Medications acetaminophen-oxyCODONE 325 mg-5 mg oral tablet 1, tablet, By Mouth, Every 4 hours, PRN, DX: Left sublclavian occlusion, # 150 tablet, Refills 0, Tot. Refills 0, Maintenance, as needed for pain, 02/13/22 13:16:00 EDT, Route to Pharmacy Electronically, [facility]t, Partial fill upo... Start Date: 02/13/22 Status: Ordered Aspirin = 81 mg, By [...]
--- OUTSIDE RECORDS SUMMARY | 2023-11-11 08:42 | XMS_ITS | Continuity of Care Document ---
Author Name Unknown Organization [facility] Address [address] [place] [address]- Care Team Providers Care Street Light Servicer Supervisor Name Role Phone Po Zuri KING Primary Care Physician [phone] Encounter [facility] [place](s): 09/25/23 - 10/25/23 [facility] [address] [place] [address]- Allergies, Adverse Reactions, Alerts Substance Reaction Severity Status Nyquil Cold Medicine 1 rash Persistent Moderat e Active Zithromax Z-Charlie 2 rash Persistent Moderate Act elena Morphine Sulfate ADD-[place] 3 heart races Persisten t Mild Active [...] Refills, Maintenance, 10/22/23 14:51:00 EST, Tablet, [facility], Partial fill upon [...] Team Personnel Name: Rehana Kinsey RN Position: [facility] RN Member Role: Primary Care Nurse Name: Nelly Liu RN Position: S RN Member Role: Primary Care Nurse Name: Stacey Quevedo RN Position: S RN Member Role: Primary Care Nurse Name: Zuri Feldman MD Position: Reference Physician Member Role: PCP Address: Address: [address] [place] [address] Name: Elvira Jefferson RN Position: S RN Member Role: Primary Care Nurse Care Team Related Persons Name: BRIANA HOWE Address: home [address] [place] [address] Name: KUMAR HOWE Address: home [address] [place] [address] Name: RICARDO HOWE Address: home [address] [place], [place] [address]
--- OUTSIDE RECORDS SUMMARY | 2023-11-11 08:42 | XMS_ITS | Continuity of Care Document ---
Author Name Unknown Organization [facility] Address [address] [place] [address]- Care Team Providers Care Client Experience Administrator Name Role Phone Po Zuri KING Primary Care Physician [phone] Encounter [facility] [place] Date(s): 03/11/23 - 04/10/23 [facility] [address] [place] [address]- Allergies, Adverse Reactions, Alerts Substance Reaction Severity Status Nyquil Cold Medicine 1 rash Persistent Moderat e Active Zithromax Z-Charlie 2 rash Persistent Moderate Act elena Morphine Sulfate ADD-[place] 3 heart races Persisten t Mild Active 1hives 2hives 3tachycardica Medications acetaminophen-oxyCODONE 325 mg-5 mg oral tablet 1, tablet, By Mouth, Every 4 hours, PRN, DX: Left sublclavian occlusion, # 150 tablet, Refills 0, Tot. Refills 0, Maintenance, as needed for pain, 04/07/23 10:12:00 EDT, Route to Pharmacy Electronically, [facility]t, Partial fill upo... Start Date: 04/07/23 Stop Date: 05/02/23 Status: Ordered Aspirin = 81 mg, By [...] Required Details, Route to Pharmacy Electronically, [facility], 170, cm, 03/01/22 9:08:00 EDT, He... [...] Team Personnel Name: Rehana Kinsey RN Position: [facility] SN RN Member Role: Primary Care Nurse Name: eNlly Liu RN Position: S RN Member Role: Primary Care Nurse Name: Stacey Quevedo RN Position: S RN Member Role: Primary Care Nurse Name: Zuri Feldman MD Position: Reference Physician Member Role: PCP Address: Address: [address] [place] [address] Name: Elvira Jefferson RN Position: S RN Member Role: Primary Care Nurse Care Team Related Persons Name: BRIANA HOWE Address: home [address] [place] [address] Name: KUMAR HOWE Address: home [address] [place] [address] Name: RICARDO HOWE OR DAMON Address: [address]
--- OUTSIDE RECORDS SUMMARY | 2023-11-11 08:42 | XMS_ITS | Continuity of Care Document ---
Author Name Unknown Organization [facility] Address [address] [place] [address]- Care Team Providers Care Hyperion Administrator Name Role Phone Po Zuri KING Primary Care Physician Encounter [facility] [place] Date(s): 02/12/22 - 03/14/22 [facility] [address] [place] [address]- Allergies, Adverse Reactions, Alerts Substance Reaction Severity Status Nyquil Cold Medicine 1 rash Persistent Moderat e Active Zithromax Z-Charlie 2 rash Persistent Moderate Act elena Morphine Sulfate ADD-[place] 3 heart races Persisten t Mild Active 1hives 2hives 3tachycardica Medications acetaminophen-oxyCODONE 325 mg-5 mg oral tablet 1, tablet, By Mouth, Every 4 hours, PRN, DX: Left sublclavian occlusion, # 150 tablet, Refills 0, Tot. Refills 0, Maintenance, as needed for pain, 03/05/22 11:27:00 EDT, Route to Pharmacy Electronically, [facility]t, Partial fill upo... Start Date: 03/05/22 Status: Ordered Aspirin = 81 mg, By [...] use of Percocet(Confirmed) Active Nasal polyps(Confirmed) Active Obese class I(Confirmed) Active Seizures(Confirmed) Active Subclavian steal syndrome(Confirmed) Active Current tobacco use most of his life, attempting to quit(Confirmed) Active Tubular adenoma(Confirmed) Active Social History Social History Type Response Smoking Status Former smoker; Other : quit nov 2017; entered on: 03/13/18 Sex
--- OUTSIDE RECORDS SUMMARY | 2023-11-11 08:42 | XMS_ITS | Continuity of Care Document ---
Author Name Unknown Organization [facility] Address [address] [place] [address]- Care Team Providers Care Expressive Therapist Name Role Phone Po Zuri KING Primary Care Physician [phone] Encounter [facility] [place] Date(s): 09/03/21 - 10/03/21 [facility] [address] [place] [address]- Allergies, Adverse Reactions, Alerts Substance Reaction Severity Status Nyquil Cold Medicine 1 rash Persistent Moderat e Active Zithromax Z-Charlie 2 rash Persistent Moderate Act elena Morphine Sulfate ADD-[place] 3 heart races Persisten t Mild Active 1hives 2hives 3tachycardica Medications acetaminophen-oxyCODONE 325 mg-5 mg oral tablet 1, tablet, By Mouth, Every 4 hours, PRN, DX: Left sublclavian occlusion, # 150 tablet, Refills 0, Tot. Refills 0, Maintenance, as needed for pain, 09/28/21 17:10:00 EST, Route to Pharmacy Electronically, [facility]t, Partial fill upo... Start Date: 09/28/21 Stop Date: 10/19/21 Status: Ordered Aspirin = 81 mg, By [...]
--- OUTSIDE RECORDS SUMMARY | 2023-11-11 08:42 | XMS_ITS | Continuity of Care Document ---
Author Name Unknown Organization [facility] Address [address] [place] [address]- Care Team Providers Care Income Tax Manager Name Role Phone Po Zuri KING Primary Care Physician [phone] [facility] [place] Date(s): 01/03/23 - 02/02/23 [facility] [address] [place] [address]- Allergies, Adverse Reactions, Alerts Substance Reaction Severity Status Nyquil Cold Medicine 1 rash Persistent Moderat e Active Zithromax Z-Charlie 2 rash Persistent Moderate Act elena Morphine Sulfate ADD-[place] 3 heart races Persisten t Mild Active [...] Required Details, Route to Pharmacy Electronically, [facility], 170, cm, 03/01/22 9:08:00 EDT, He... Start [...] Team Personnel Name: Rehana Kinsey RN Position: [facility] RN Member Role: Primary Care Nurse Name: Nelly Liu RN Position: S RN Member Role: Primary Care Nurse Name: Stacey Quevedo RN Position: S RN Member Role: Primary Care Nurse Name: Zuri Feldman MD Position: Reference Physician Member Role: PCP Address: Address: [address] [place] [address] Name: Elvira Jefferson RN Position: S RN Member Role: Primary Care Nurse Care Team Related Persons Name: BRIANA HOWE Address: home [address] [place] [address] Name: KUMAR HOWE Address: home [address] [place] [address] Name: RICARDO HOWE OR DAMON Address: home [address] [place] [address]
--- OUTSIDE RECORDS SUMMARY | 2023-11-11 08:42 | XMS_ITS | Continuity of Care Document ---
Author Name Unknown Organization [facility] Address [address] [place] [address]- Care Team Providers Care Conveyor Feeder Offbearer Name Role Phone Po Zuri KING Primary Care Physician [phone] En[facility] [place] Date(s): 07/04/23 - 08/03/23 [facility] [address] [place] [address]- Allergies, Adverse Reactions, Alerts Substance Reaction Severity Status Nyquil Cold Medicine 1 rash Persistent Moderat e Active Zithromax Z-Charlie 2 rash Persistent Moderate Act elena Morphine Sulfate ADD-[place] 3 heart races Persisten t Mild Active [...] Team Personnel Name: Rehana Kinsey RN Position: [facility] SN RN Member Role: Primary Care Nurse Name: Nelly Liu RN Position: S RN Member Role: Primary Care Nurse Name: Stacey Quevedo RN Position: S RN Member Role: Primary Care Nurse Name: Zuri Feldman MD Position: Reference Physician Member Role: PCP Address: Address: [address] [place] [address] Name: Elvira Jefferson RN Position: S RN Member Role: Primary Care Nurse Care Team Related Persons Name: BRIANA HOWE Address: home [address] [place] [address] Name: KUMAR HOWE Address: home [address] [place] [address] Name: RICARDO HOWE OR DAMON Address: [address]
[2023-11-11 08:43] VITALS: BP 116/69; PULSE 116; RESP 20; TEMP 38.7; O2SAT 94
--- OUTSIDE RECORDS SUMMARY | 2023-11-11 08:43 | XMS_ITS | Continuity of Care Document ---
Author Name Unknown Organization [facility] Address [address] [place] [address]- Care Team Providers Care Fisheries Inspector Name Role Phone Po Zuri KING Primary Care Physician [phone] [place] [facility] [place](s): 01/14/22 - 02/13/22 [facility] [address] [place] [address]- Allergies, Adverse Reactions, Alerts Substance Reaction Severity Status Nyquil Cold Medicine 1 rash Persistent Moderat e Active Zithromax Z-Charlie 2 rash Persistent Moderate Act elena Morphine Sulfate ADD-[place] 3 heart races Persisten t Mild Active 1hives 2hives 3tachycardica Medications acetaminophen-oxyCODONE 325 mg-5 mg oral tablet 1, tablet, By Mouth, Every 4 hours, PRN, DX: Left sublclavian occlusion, # 150 tablet, Refills 0, Tot. Refills 0, Maintenance, as needed for pain, 02/13/22 13:16:00 EDT, Route to Pharmacy Electronically, [facility] Tablet, Partial fill upo... Start Date: 02/13/22 Status: Ordered acetaminophen-oxyCODONE 325 mg-5 mg oral tablet 1, tablet, By Mouth, Every 4 hours, PRN, DX: Left sublclavian occlusion, # 150 tablet, Refills 0, Tot. Refills 0, Hard Stop, as needed for pain, 02/17/22 9:32:00 EDT, 01/18/22 8:21:00 EDT, Route to Pharmacy Electronically, [facility] Table... Start Date: 01/18/22 Stop Date: 02/17/22 Status: [...] recent to oldest [Reference Range]: 1 Height 170 cm (01/17/22 9:28 AM) Social History Social History Type Response Smoking Status Former smoker; Other : quit nov 2017; entered on: 03/13/18 Sex
--- OUTSIDE RECORDS SUMMARY | 2023-11-11 08:43 | XMS_ITS | Continuity of Care Document ---
Author Name Unknown Organization [facility] Address [address] [place] [address]- Care Team Providers Care Procurement Analyst Name Role Phone Po Zuri KING Primary Care Physician [phone] Encounter [facility] [place] Date(s): 06/07/22 - 06/14/[address] [facility] [address] [place] [address]- Attending Physician: Jarrod Durbin MD Admitting Physician: Jarrod Durbin MD Allergies, Adverse Reactions, Alerts Substance Reaction Severity Status Nyquil Cold Medicine 1 rash Persistent Moderat e Active Zithromax Z-Charlie 2 rash Persistent Moderate Act elena Morphine Sulfate ADD-[place] 3 heart races Persisten t Mild Active 1hives 2hives 3tachycardica Medications acetaminophen-oxyCODONE 325 mg-5 mg oral tablet 1, tablet, By Mouth, Every 4 hours, PRN, DX: Left sublclavian occlusion, # 150 tablet, Refills 0, Tot. Refills 0, Maintenance, as needed for pain, 06/14/22 13:44:00 EDT, Route to Pharmacy Electronically, [facility] Tablet, Partial fill upo... Start Date: 06/14/22 Status: Ordered Aspirin = 81 mg, By [...] to Pharmacy Electronically, [facility], 170, cm, :08:00 EDT, Height Start [...] quit nov 2017; entered on: 03/13/18 Sex Care Team Personnel Name: Zuri Feldman MD Address: [address] [place] [id number]
--- OUTSIDE RECORDS SUMMARY | 2023-11-11 08:43 | XMS_ITS | Continuity of Care Document ---
Author Name Unknown Organization [facility] Address [address] [place] [address]- Care Team Providers Care Agency Trainer Name Role Phone Po Zuri KING Primary Care Physician [place] [facility] [place](s): 10/02/22 - 11/01/22 [facility] [address] [place] [address]- Allergies, Adverse Reactions, Alerts Substance Reaction Severity Status Nyquil Cold Medicine 1 rash Persistent Moderat e Active Zithromax Z-Charlie 2 rash Persistent Moderate Act elena Morphine Sulfate ADD-[place] 3 heart races Persisten t Mild Active 1hives 2hives 3tachycardica Medications acetaminophen-oxyCODONE 325 mg-5 mg oral tablet 1, tablet, By Mouth, Every 4 hours, PRN, DX: Left sublclavian occlusion, # 150 tablet, Refills 0, Tot. Refills 0, Maintenance, as needed for pain, 10/28/22 17:18:00 EST, Route to Pharmacy Electronically, [facility] Tablet, Partial fill upo... Start Date: 10/28/22 Status: Ordered Aspirin = 81 mg, By Mouth, Daily in AM, 0 Refills, Maintenance, 11/30/15 9:52:35 EST Start Date: 11/30/15 Status: Ordered Eliquis 2.5 mg oral tablet See Instructions, TAKE 1 TABLET BY MOUTH TWICE DAILY, # 60 tablet, 3 Refills, Maintenance, 11/01/2311:59:00 EST, [facility], 173, cm, 09/13/22 7:41:00 EST, Height, 84.5, kg, 09/12/2214:06:00 EST, Dry Weight Start Date: 11/01/22 Status: Ordered Flonase 50 mcg/inh nasal spray 1 sprays, Daily, 0 Refills, Maintenance, 08/11/15 8:46:59 Start Date: 08/11/15 Status: Ordered gabapentin 300 mg oral capsule See Instructions, TAKE 1 CAPSULE BY MOUTH 3 TIMES A DAY, # 270 capsule, Refills 3, Maintenance, 08/23/22 12:28:00 EDT, Instructions Replace Required Details, Route to Pharmacy Electronically, [facility], 170, cm, 03/01/22 9:08:00 EDT, [...] Reference Physician Member Role: PCP Address: Address: [address] [place] [address] Name: Elvira Jefferson RN Position: S RN Member Role: Primary Care Nurse Care Team Related Persons Name: BRIANA HOWE Address: home [address] [place] [address] Name: KUMAR HOWE Address: [address] [place] [address] Name: RICARDO HOWE OR DAMON Address: [address] [place] [address]
--- OUTSIDE RECORDS SUMMARY | 2023-11-11 08:43 | XMS_ITS | Continuity of Care Document ---
Author Name Unknown Organization [facility] Address [address] [place] [address]- Care Team Providers Care Furnace Reliner Name Role Phone Po Zuri KING Primary Care Physician [phone] [place] [facility] [place] Date(s): 09/03/21 - 10/03/21 [facility] [address] [place] [address]- Allergies, Adverse Reactions, Alerts Substance Reaction Severity Status Nyquil Cold Medicine 1 rash Persistent Moderat e Active Zithromax Z-Charlie 2 rash Persistent Moderate Act elena Morphine Sulfate ADD-[place] 3 heart races Persisten t Mild Active [...]
--- OUTSIDE RECORDS SUMMARY | 2023-11-11 08:43 | XMS_ITS | Continuity of Care Document ---
Author Name Unknown Organization [facility] Address [address] [place] [address]- Care Team Providers Care Buffing Machine Tender Name Role Phone Po Zuri KING Primary Care Physician Encounter [facility] [place] Date(s): 04/04/23 - 05/04/23 [facility] [address] [place] [address]- Allergies, Adverse Reactions, Alerts Substance Reaction Severity Status Nyquil Cold Medicine 1 rash Persistent Moderat e Active Zithromax Z-Charlie 2 rash Persistent Moderate Act elena Morphine Sulfate ADD-[place] 3 heart races Persisten t Mild Active 1hives 2hives 3tachycardica Medications acetaminophen-oxyCODONE 325 mg-5 mg oral tablet 1, tablet, By Mouth, Every 4 hours, PRN, DX: Left sublclavian occlusion, # 150 tablet, Refills 0, Tot. Refills 0, Maintenance, as needed for pain, 04/29/23 17:09:00 EDT, Route to Pharmacy Electronically, [facility] Tablet, Partial fill upo... Start Date: 04/29/23 Stop Date: 05/24/23 Status: Ordered Aspirin = 81 mg, By Mouth, Daily in AM, 0 Refills, Maintenance, 11/30/15 9:52:35 EST Start Date: 11/30/15 Status: Ordered Eliquis 2.5 mg oral tablet 1 tablet, By Mouth, 2 times a day, # 56 tablet, 1 Refills, Maintenance, 04/18/23 14:39:00 EDT, [facility], 173, cm, 02/07/23 13:33:00 EDT, Height, 84.5, kg, 09/12/22 14:06:00 EST, Dry Weight Start Date: 04/18/23 Status: Ordered Flonase 50 mcg/inh nasal spray 1 sprays, Daily, 0 Refills, Maintenance, 08/11/15 8:46:59 Start Date: 08/11/15 Status: Ordered gabapentin 300 mg oral capsule See Instructions, TAKE 1 CAPSULE BY MOUTH 3 TIMES A DAY, # 270 capsule, Refills 3, Maintenance, 08/23/22 12:28:00 EDT, Instructions Replace Required Details, Route to Pharmacy Electronically, [facility], 170, cm, 03/01/22 9:08:00 EDT, He... [...] Team Personnel Name: Rehana Kinsey RN Position: [facility] SN RN Member Role: Primary Care Nurse Name: Nelly Liu RN Position: S RN Member Role: Primary Care Nurse Name: Stacey Quevedo RN Position: S RN Member Role: Primary Care Nurse Name: Zuri Feldman MD Position: Reference Physician Member Role: PCP Address: Address: [address] [place] [address] Name: Elvira Jefferson RN Position: S RN Member Role: Primary Care Nurse Care Team Related Persons Name: BRIANA HOWE Address: home [address] [place] [address] Name: KUMAR HOWE Address: home [address] [place] [address] Name: RICARDO HOWE OR DAMON Address: [address]
--- OUTSIDE RECORDS SUMMARY | 2023-11-11 08:43 | XMS_ITS | Continuity of Care Document ---
Author Name Unknown Organization [facility] Address [address] [place] [address]- Care Team Providers Care Hand Ii Blocker Name Role Phone Po Zuri KING Primary Care Physician [phone] Encounter [facility] [place] Date(s): 07/03/20 - 08/02/20 [facility] [address] [place] [address]- [facility] Allergies, Adverse Reactions, Alerts Substance Reaction Severity Status Nyquil Cold Medicine 1 rash Persistent Moderat e Active Zithromax Z-Charlie 2 rash Persistent Moderate Act elena Morphine Sulfate ADD-[place] 3 heart races Persisten t Mild Active 1hives 2hives 3tachycardica Medications acetaminophen-oxyCODONE 325 mg-5 mg oral tablet 1, tablet, By Mouth, Every 6 hours, PRN, DX: Left sublclavian occlusion, # 120 tablet, Refills 0, Tot. Refills 0, Maintenance, as needed for pain, 07/28/20 10:16:00 EDT, Route to Pharmacy Electronically, [facility] Tablet, Partial fill upo... Start Date: 07/28/20 Status: Ordered Aspirin = 81 mg, By [...]
--- OUTSIDE RECORDS SUMMARY | 2023-11-11 08:43 | XMS_ITS | Continuity of Care Document ---
Author Name Unknown Organization [facility] Address [address] [place] [address]- Care Team Providers Care Soapstoner Name Role Phone Po Zuri KING Primary Care Physician [phone] [facility] [place] Date(s): 03/01/22 - 03/31/22 [facility] [address] [place] [address]- Allergies, Adverse Reactions, Alerts Substance Reaction Severity Status Nyquil Cold Medicine 1 rash Persistent Moderat e Active Zithromax Z-Charlie 2 rash Persistent Moderate Act elena Morphine Sulfate ADD-[place] 3 heart races Persisten t Mild Active [...]
--- OUTSIDE RECORDS SUMMARY | 2023-11-11 08:43 | XMS_ITS | Continuity of Care Document ---
Author Name Unknown Organization [facility] Address [address] [place] [address]- Care Team Providers Care Parts Administrator Name Role Phone Po Zuri KING Primary Care Physician Encounter [facility] [place] Date(s): 06/04/21 - 07/04/21 [facility] [address] [place] [address]- Allergies, Adverse Reactions, Alerts Substance Reaction Severity Status Nyquil Cold Medicine 1 rash Persistent Moderat e Active Zithromax Z-Charlie 2 rash Persistent Moderate Act elena Morphine Sulfate ADD-[place] 3 heart races Persisten t Mild Active [...]
--- OUTSIDE RECORDS SUMMARY | 2023-11-11 08:43 | XMS_ITS | Continuity of Care Document ---
Author Name Unknown Organization [facility] Address [address] [place] [address]- Care Team Providers Care Oracle Obiee Developer Name Role Phone Po Zuri KING Primary Care Physician [place] [facility] [place](s): 08/06/21 - 09/05/21 [facility] [address] [place] [address]- Allergies, Adverse Reactions, Alerts Substance Reaction Severity Status Nyquil Cold Medicine 1 rash Persistent Moderat e Active Zithromax Z-Charlie 2 rash Persistent Moderate Act elena Morphine Sulfate ADD-[place] 3 heart races Persisten t Mild Active [...]
--- OUTSIDE RECORDS SUMMARY | 2023-11-11 08:43 | XMS_ITS | Continuity of Care Document ---
Author Name Unknown Organization [facility] Address [address] [place] [address]- Care Team Providers Care Licensed Loan Officer Name Role Phone Po Zuri KING Primary Care Physician [place] [facility] [place](s): 07/25/23 - 08/24/23 [facility] [address] [place] [address]- Allergies, Adverse Reactions, Alerts Substance Reaction Severity Status Nyquil Cold Medicine 1 rash Persistent Moderat e Active Zithromax Z-Charlie 2 rash Persistent Moderate Act elena Morphine Sulfate ADD-[place] 3 heart races Persisten t Mild Active [...] 12:33:00 EDT, Route to Pharmacy Electronically, [id number], Partial fill upon patient request if the prescript... Start Date: 08/09/23 Status: Ordered pantoprazole 40 mg oral delayed [...] Personnel Name: Rehana Kinsey RN Position: [facility] SN RN Member Role: Primary Care Nurse Name: Nelly Liu RN Position: S RN Member Role: Primary Care Nurse Name: Stacey Quevedo RN Position: S RN Member Role: Primary Care Nurse Name: Zuri Feldman MD Position: Reference Physician Member Role: PCP Address: Address: [address] [place] [address]- Name: Elvira Jefferson RN Position: S RN Member Role: Primary Care Nurse Care Team Related Persons Name: BRIANA HOWE Address: home [address] [place] [address] Name: KUMAR HOWE Address: home [address] [place] [address] Name: RICARDO HOWE Address: [place] [id number]
--- OUTSIDE RECORDS SUMMARY | 2023-11-11 08:43 | XMS_ITS | Continuity of Care Document ---
Author Name Unknown Organization [facility] Address [address] [place] [address]- Care Team Providers Care Fringing Machine Operator Name Role Phone Po Zuri KING Primary Care Physician [place] [facility] [place] 11/08[place]21 - 12/08/21 [facility] [address] [place] [address]- Allergies, Adverse Reactions, Alerts Substance Reaction Severity Status Nyquil Cold Medicine 1 rash Persistent Moderat e Active Zithromax Z-Charlie 2 rash Persistent Moderate Act elena Morphine Sulfate ADD-[place] 3 heart races Persisten t Mild Active 1hives 2hives 3tachycardica Medications acetaminophen-oxyCODONE 325 mg-5 mg oral tablet 1, tablet, By Mouth, Every 4 hours, PRN, DX: Left sublclavian occlusion, # 150 tablet, Refills 0, Tot. Refills 0, Maintenance, as needed for pain, 12/04/21 13:21:00 EST, Route to Pharmacy Electronically, [facility] Tablet, Partial fill upo... Start Date: 12/04/21 Stop Date: 12/25/21 Status: Ordered Aspirin = 81 mg, By [...]
--- OUTSIDE RECORDS SUMMARY | 2023-11-11 08:43 | XMS_ITS | Continuity of Care Document ---
Author Name Unknown Organization [facility] Address [address] [place] [address]- Care Team Providers Care Stablehand Name Role Phone Po Zuri KING Primary Care Physician En[place] [facility] [place] Date(s): 12/16/22 - 01/15/23 [facility] [address] [place] [address]- Allergies, Adverse Reactions, Alerts Substance Reaction Severity Status Nyquil Cold Medicine 1 rash Persistent Moderat e Active Zithromax Z-Charlie 2 rash Persistent Moderate Act elena Morphine Sulfate ADD-[place] 3 heart races Persisten t Mild Active 1hives 2hives 3tachycardica Medications acetaminophen-oxyCODONE 325 mg-5 mg oral tablet 1, tablet, By Mouth, Every 4 hours, PRN, DX: Left sublclavian occlusion, # 150 tablet, Refills 0, Tot. Refills 0, Maintenance, as needed for pain, 01/03/23 15:17:00 EDT, Route to Pharmacy Electronically, [facility] Tablet, Partial fill upo... Start Date: 01/03/23 Stop Date: 01/28/23 Status: Ordered Aspirin = 81 mg, By [...] Team Personnel Name: Rehana Kinsey RN Position: [facility] RN Member Role: Primary Care Nurse Name: Nelly Liu RN Position: S RN Member Role: Primary Care Nurse Name: Stacey Quevedo RN Position: S RN Member Role: Primary Care Nurse Name: Zuri Feldman MD Position: Reference Physician Member Role: PCP Address: Address: [address] [place] [address] Name: Elvira Jefferson RN Position: S RN Member Role: Primary Care Nurse Care Team Related Persons Name: BRIANA HOWE Address: home [address] [place] [address] Name: KUMAR HOWE Address: home [address] [place] [address] Name: RICARDO HOWE Address: home [address] [place] [address]
--- OUTSIDE RECORDS SUMMARY | 2023-11-11 08:43 | XMS_ITS | Continuity of Care Document ---
Author Name Unknown Organization [facility] Address [address] [place] [address]- Care Team Providers Care Sewing Machine Operator Zipper Name Role Phone Zuri Feldman MD Primary Care Physician Encounter [facility] [place] Date(s): 07/02/22 - 07/09/22 [facility] [address] [place] [address]- Attending Physician: Jarrod Durbin MD Admitting Physician: Jarrod Durbin MD Referring Physician: Zuri Feldman MD Allergies, Adverse Reactions, Alerts Substance Reaction Severity Status Nyquil Cold Medicine 1 rash Persistent Moderat e Active Zithromax Z-Charlie 2 rash Persistent Moderate Act elena Morphine Sulfate ADD-[place] 3 heart races Persisten t Mild Active 1hives 2hives 3tachycardica Medications acetaminophen-oxyCODONE 325 mg-5 mg oral tablet 1, tablet, By Mouth, Every 4 hours, PRN, DX: Left sublclavian occlusion, # 150 tablet, Refills 0, Tot. Refills 0, Maintenance, as needed for pain, 07/05/22 14:24:00 EDT, Route to Pharmacy Electronically, [facility] Tablet, Partial fill upo... Start Date: 07/05/22 Status: Ordered Aspirin = 81 mg, By [...] Route to Pharmacy Electronically, [facility], 170, cm, 229:08:00 EDT, Height Start Date: 04/19/22 Status: Ordered [...] Team Personnel Name: Zuri Feldman MD Address: [address] [place] [address]-
--- OUTSIDE RECORDS SUMMARY | 2023-11-11 08:44 | XMS_ITS | Continuity of Care Document ---
Author Name Unknown Organization [facility] Address [address] [place] [address]- Care Team Providers Care Wool Spotter Name Role Phone Po Zuri KING Primary Care Physician [phone] [place] [facility] [place] 09/24/21 - 10/24/21 [facility] [address] [place] [address]- Allergies, Adverse Reactions, Alerts Substance Reaction Severity Status Nyquil Cold Medicine 1 rash Persistent Moderat e Active Zithromax Z-Charlie 2 rash Persistent Moderate Act elena Morphine Sulfate ADD-[place] 3 heart races Persisten t Mild Active 1hives 2hives 3tachycardica Medications acetaminophen-oxyCODONE 325 mg-5 mg oral tablet 1, tablet, By Mouth, Every 4 hours, PRN, DX: Left sublclavian occlusion, # 150 tablet, Refills 0, Tot. Refills 0, Maintenance, as needed for pain, 10/15/21 15:27:00 EST, Route to Pharmacy Electronically, [facility] Tablet, Partial fill upo... Start Date: 10/15/21 Stop Date: 11/05/21 Status: Ordered Aspirin = 81 mg, By [...]
--- OUTSIDE RECORDS SUMMARY | 2023-11-11 08:44 | XMS_ITS | Continuity of Care Document ---
Author Name Unknown Organization [facility] Address [address] [place] [address]- Care Team Providers Care Impregnator And Drier Name Role Phone Po Zuri KING Primary Care Physician [phone] Encounter [facility] [place] Date(s): 06/02/20 - 07/02/20 [facility] [address] [place] [address]- [facility] Allergies, Adverse Reactions, Alerts Substance Reaction Severity Status Nyquil Cold Medicine 1 rash Persistent Moderat e Active Zithromax Z-Charlie 2 rash Persistent Moderate Act elena Morphine Sulfate ADD-[place] 3 heart races Persisten t Mild Active 1hives 2hives 3tachycardica Medications acetaminophen-oxyCODONE 325 mg-5 mg oral tablet 1, tablet, By Mouth, Every 6 hours, PRN, DX: Left sublclavian occlusion, # 120 tablet, Refills 0, Tot. Refills 0, Maintenance, as needed for pain, 06/02/20 16:07:00 EDT, Route to Pharmacy Electronically, [facility] Tablet, Partial fill upo... Start Date: 06/02/20 Status: Ordered Aspirin = 81 mg, By [...]
--- OUTSIDE RECORDS SUMMARY | 2023-11-11 08:44 | XMS_ITS | Continuity of Care Document ---
Author Name Unknown Organization [facility] Address [address] [place] [address]- Care Team Providers Care Resident Care Director Name Role Phone Po Zuri KING Primary Care Physician [phone] Encounter [facility] [place] Date(s): 07/19/21 - 08/18/21 [facility] [address] [place] [address]- Allergies, Adverse Reactions, Alerts Substance Reaction Severity Status Nyquil Cold Medicine 1 rash Persistent Moderat e Active Zithromax Z-Charlie 2 rash Persistent Moderate Act elena Morphine Sulfate ADD-[place] 3 heart races Persisten t Mild Active [...]
--- OUTSIDE RECORDS SUMMARY | 2023-11-11 08:44 | XMS_ITS | Continuity of Care Document ---
Author Name Unknown Organization [facility] Address [address] [place] [address]- Care Team Providers Care Semiconductor Package Symbol Stamper Name Role Phone Po Zuri KING Primary Care Physician Encounter [facility] Date(s): 09/08/23 - 10/08/23 [facility] [address] [place] [address]- Allergies, Adverse Reactions, Alerts Substance Reaction Severity Status Nyquil Cold Medicine 1 rash Persistent Moderat e Active Zithromax Z-Charlie 2 rash Persistent Moderate Act elena Morphine Sulfate ADD-[place] 3 heart races Persisten t Mild Active [...] Tot. Refills 0, Maintenance,as needed for pain, 09/30/23 16:31:00 EST, Route to Pharmacy Electronically, [id number], Partial fill upon patient request if the prescript... Start Date: 09/30/23 Status: Ordered pantoprazole 40 mg oral delayed [...] Team Personnel Name: Rehana Kinsey RN Position: [facility] SN RN Member Role: Primary Care Nurse Name: Nelly Liu RN Position: S RN Member Role: Primary Care Nurse Name: Stacey Quevedo RN Position: S RN Member Role: Primary Care Nurse Name: Zuri Feldman MD Position: Reference Physician Member Role: PCP Address: Address: [address] [place] [address] Name: Elvira Jefferson RN Position: S RN Member Role: Primary Care Nurse Care Team Related Persons Name: BRIANA HOWE Address: home [address] [place] [id number] Name: KUMAR HOWE Address: home [address] [place] [address] Name: RICARDO HOWE OR DAMON Address: [address]
--- OUTSIDE RECORDS SUMMARY | 2023-11-11 08:44 | XMS_ITS | Continuity of Care Document ---
Author Name Unknown Organization [facility] Address [address] [place] [address]- Care Team Providers Care Flat Sorting Machine Clerk Name Role Phone Po Zuri KING Primary Care Physician En[place] [facility] [place] Date(s): 07/04/22 - 08/03/22 [facility] [address] [place] [address]- Allergies, Adverse Reactions, Alerts Substance Reaction Severity Status Nyquil Cold Medicine 1 rash Persistent Moderat e Active Zithromax Z-Charlie 2 rash Persistent Moderate Act elena Morphine Sulfate ADD-[place] 3 heart races Persisten t Mild Active [...] Name: Zuri Feldman MD Address: Address: [address] [place], [place] [address]
--- OUTSIDE RECORDS SUMMARY | 2023-11-11 08:44 | XMS_ITS | Continuity of Care Document ---
Author Name Unknown Organization [facility] Address [address] [place] [address]- Care Team Providers Care X Ray Physician Name Role Phone Po Zuri KING Primary Care Physician [phone] Encounter [facility] Date(s): 03/01/21 - 03/31/21 [facility] [address] [place] [address]- Allergies, Adverse Reactions, Alerts Substance Reaction Severity Status Nyquil Cold Medicine 1 rash Persistent Moderat e Active Zithromax Z-Charlie 2 rash Persistent Moderate Act elena Morphine Sulfate ADD-[place] 3 heart races Persisten t Mild Active [...]
--- OUTSIDE RECORDS SUMMARY | 2023-11-11 08:44 | XMS_ITS | Continuity of Care Document ---
Author Name Unknown Organization [facility] Address [address] [place] [address]- Care Team Providers Care Infectious Disease Technician Name Role Phone Po Zuri KING Primary Care Physician [phone] Encounter [facility] Date(s): 09/11/22 - 10/11/22 [facility] [address] [place] [address]- Allergies, Adverse Reactions, Alerts Substance Reaction Severity Status Nyquil Cold Medicine 1 rash Persistent Moderat e Active Zithromax Z-Charlie 2 rash Persistent Moderate Act elena Morphine Sulfate ADD-[place] 3 heart races Persisten t Mild Active [...] Route to Pharmacy Electronically, [facility], 170, cm, 03/01/22 9:08:00 EDT, He... Start [...] Care Nurse Name: Stacey Quevedo RN Position: [facility] RN Member Role: Primary Care Nurse Name: Zuri Feldman MD Position: Reference Physician Member Role: PCP Address: Address: [address] [place] [address] Name: Elvira Jefferson RN Position: S RN Member Role: Primary Care Nurse Care Team Related Persons Name: BRIANA HOWE Address: home [address] [place] [address] Name: KUMAR HOWE Address: home [address] [place] [address] Name: RICARDO HOWE OR DAMON Address: [address]
--- OUTSIDE RECORDS SUMMARY | 2023-11-11 08:44 | XMS_ITS | Continuity of Care Document ---
Author Name Unknown Organization [facility] Address [address] [place] [address]- Care Team Providers Care Thin Film Technician Name Role Phone Po Zuri KING Primary Care Physician [place] [facility] 12/27/21 - 01/26/22 [facility] [address] [place] [address]- Allergies, Adverse Reactions, Alerts Substance Reaction Severity Status Nyquil Cold Medicine 1 rash Persistent Moderat e Active Zithromax Z-Charlie 2 rash Persistent Moderate Act elena Morphine Sulfate ADD-[place] 3 heart races Persisten t Mild Active [...] a day, # 270 capsule, Refills 0, Tot. Refills 0, 01/15/22 8:52:00 EDT, Route to Pharmacy Electronically, [facility], 170.18, cm, 10/13/21 6:09:00 EDT, Height Start Date: 01/15/22 Status: Ordered gabapentin 300 mg oral capsule 1, capsule, By Mouth, 3 times a day, # 270 capsule, Refills 0, Route to Pharmacy Electronically, [facility], 170, cm, 01/17/22 9:28:00 EDT, Height Start [...]
--- OUTSIDE RECORDS SUMMARY | 2023-11-11 08:44 | XMS_ITS | Continuity of Care Document ---
Author Name Unknown Organization [facility] Address [address] [place] [address]- Care Team Providers Care Hourly Caregiver Name Role Phone Po Zuri KING Primary Care Physician [phone] Encounter [facility] [place] Date(s): 01/12/21 - 02/11/21 [facility] [address] [place] [address]- Allergies, Adverse Reactions, Alerts Substance Reaction Severity Status Nyquil Cold Medicine 1 rash Persistent Moderat e Active Zithromax Z-Charlie 2 rash Persistent Moderate Act elena Morphine Sulfate ADD-[place] 3 heart races Persisten t Mild Active 1hives 2hives 3tachycardica Medications acetaminophen-oxyCODONE 325 mg-5 mg oral tablet 1, tablet, By Mouth, Every 4 hours, PRN, DX: Left sublclavian occlusion, # 150 tablet, Refills 0, Tot. Refills 0, Maintenance, as needed for pain, 02/06/21 15:22:00 EDT, Route to Pharmacy Electronically, [facility]t, Partial fill upo... Start Date: 02/06/21 Stop Date: 02/27/21 Status: Ordered Aspirin = 81 mg, By [...]
--- OUTSIDE RECORDS SUMMARY | 2023-11-11 08:44 | XMS_ITS | Continuity of Care Document ---
Author Name Unknown Organization [facility] Address [address] [place] [address]- Care Team Providers Care Sole Conditioner Name Role Phone Po Zuri KING Primary Care Physician Encounter [facility] [place] Date(s): 01/23/23 - 02/22/23 [facility] [address] [place] [address]- Allergies, Adverse Reactions, Alerts Substance Reaction Severity Status Nyquil Cold Medicine 1 rash Persistent Moderat e Active Zithromax Z-Charlie 2 rash Persistent Moderate Act elena Morphine Sulfate ADD-[place] 3 heart races Persisten t Mild Active [...] Required Details, Route to Pharmacy Electronically, [facility], 170, cm, 03/01/22 9:08:00 EDT, He... [...] Team Personnel Name: Rehana Kinsey RN Position: [facility] SN RN Member Role: Primary Care Nurse Name: Nelly Liu RN Position: S RN Member Role: Primary Care Nurse Name: Stacey Quevedo RN Position: S RN Member Role: Primary Care Nurse Name: Zuri Feldman MD Position: Reference Physician Member Role: PCP Address: Address: [address] [place] [address] Name: Elvira Jefferson RN Position: S RN Member Role: Primary Care Nurse Care Team Related Persons Name: BRIANA HOWE Address: home [address] [place] [address] Name: KUMAR HOWE Address: home [address] [place] [address] Name: RICARDO HOWE OR DAMON Address: [address]
--- OUTSIDE RECORDS SUMMARY | 2023-11-11 08:44 | XMS_ITS | Continuity of Care Document ---
Author Name Unknown Organization [facility] Address [address] [place] [address]- Care Team Providers Care Vehicle Leasing And Rental Manager Name Role Phone Po Zuri KING Primary Care Physician Encounter [facility] Date(s): 03/01/22 - 03/08/22 [facility] [address] [place] [address]- Attending Physician: Jarrod Durbin MD Admitting Physician: Jarrod Durbin MD Allergies, Adverse Reactions, Alerts Substance Reaction Severity Status Nyquil Cold Medicine 1 rash Persistent Moderat e Active Zithromax Z-Charlie 2 rash Persistent Moderate Act elena Morphine Sulfate ADD-[place] 3 heart races Persisten t Mild Active [...] to Pharmacy Electronically, [facility], 170, cm, 03/31/22 9:28:00 EDT, Height Start Date: 01/25/22 Status: [...] oldest [Reference Range]: 1 Height 170 cm (03/01/22 9:08 AM) Weight 89.81 kg (03/01/22 9:08 AM) Oxygen Saturation [94-100 %] 96 % (03/01/22 9:08 AM) Pulse Rate [55-90 bpm] 88 bpm (03/01/22 9:08 AM) Body Mass Index [18.5-24.99] 31.08 *>HHI* (03/01/22 9:08 AM) Blood Pressure [90-138/55-84 mm Hg] 136/ 80mm Hg (03/01/22 9:08 AM) Mode of Delivery (Oxygen) Room air (03/01/22 9:08 AM) Blood pressure sites Arm, left (03/01/22 9:08 AM) Weight Obtained Via Patient/family state d (03/01/22 9:08 AM) Social History Social History Type Response Smoking Status Former smoker; Other : quit nov 2017; entered on: 03/13/18 Sex
--- OUTSIDE RECORDS SUMMARY | 2023-11-11 08:44 | XMS_ITS | Continuity of Care Document ---
Author Name Unknown Organization [facility] Address [address] [place] [address]- Care Team Providers Care Strip Cutter Name Role Phone Po Zuri KING Primary Care Physician [phone] Encounter [facility] [place] Date(s): 01/21/22 - 02/20/22 [facility] [address] [place] [address]- Allergies, Adverse Reactions, Alerts Substance Reaction Severity Status Nyquil Cold Medicine 1 rash Persistent Moderat e Active Zithromax Z-Charlie 2 rash Persistent Moderate Act elean Morphine Sulfate ADD-[place] 3 heart races Persisten t Mild Active [...]
--- OUTSIDE RECORDS SUMMARY | 2023-11-11 08:44 | XMS_ITS | Continuity of Care Document ---
Author Name Unknown Organization [facility] Address [address] [place] [address]- Care Team Providers Care Research Geologist Name Role Phone Po Zuri KING Primary Care Physician Encounter [facility] [place] Date(s): 08/23/22 - 09/22/22 [facility] [address] [place] [address]- Allergies, Adverse Reactions, Alerts Substance Reaction Severity Status Nyquil Cold Medicine 1 rash Persistent Moderat e Active Zithromax Z-Charlie 2 rash Persistent Moderate Act elena Morphine Sulfate ADD-[place] 3 heart races Persisten t Mild Active 1hives 2hives 3tachycardica Medications acetaminophen-oxyCODONE 325 mg-5 mg oral tablet 1, tablet, By Mouth, Every 4 hours, PRN, DX: Left sublclavian occlusion, # 150 tablet, Refills 0, Tot. Refills 0, Maintenance, as needed for pain, 09/16/22 15:53:00 EST, Route to Pharmacy Electronically, [facility]t, Partial fill upo... Start Date: 09/16/22 Status: Ordered Aspirin = 81 mg, By [...] [facility], 170, cm, 03/01/22 9:08:00 EDT, [facility] Start Date: 08/23/22 Status: Ordered Lipitor 80 [...] Physician Member Role: PCP Address: Address: [address] [place] [address] Name: Elvira Jefferson RN Position: S RN Member Role: Primary Care Nurse Care Team Related Persons Name: BRIANA HOWE Address: home [address] [place] [address] Name: KUMAR HOWE Address: home [address] [place] [address] Name: GILBERTO HOWE Name: RICARDO HOWE OR DAMON Address: [address]
--- OUTSIDE RECORDS SUMMARY | 2023-11-11 08:44 | XMS_ITS | Continuity of Care Document ---
Author Name Unknown Organization [facility] Address [address] [place] [address]- Care Team Providers Care Railroad Accountant Name Role Phone Po Zuri KING Primary Care Physician [phone] Encounter [facility] [place] Date(s): 04/19/22 - 05/19/22 [facility] [address] [place] [address]- Allergies, Adverse Reactions, Alerts Substance Reaction Severity Status Nyquil Cold Medicine 1 rash Persistent Moderat e Active Zithromax Z-Charlie 2 rash Persistent Moderate Act elnea Morphine Sulfate ADD-[place] 3 heart races Persisten t Mild Active 1hives 2hives 3tachycardica Medications acetaminophen-oxyCODONE 325 mg-5 mg oral tablet 1, tablet, By Mouth, Every 4 hours, PRN, DX: Left sublclavian occlusion, # 150 tablet, Refills 0, Tot. Refills 0, Maintenance, as needed for pain, 05/17/22 16:32:00 EDT, Route to Pharmacy Electronically, [facility]t, Partial fill upo... Start Date: 05/17/22 Status: Ordered Aspirin = 81 mg, By [...]
--- OUTSIDE RECORDS SUMMARY | 2023-11-11 08:44 | XMS_ITS | Continuity of Care Document ---
Author Name Unknown Organization [facility] Address [address] [place] [address]- Care Team Providers Care Instrumentation Technician Name Role Phone Po Zuri KING Primary Care Physician Encounter [facility] Date(s): 08/15/23 - 09/14/23 [facility] [address] [place], [place] [address] Allergies, Adverse Reactions, Alerts Substance Reaction Severity Status Nyquil Cold Medicine 1 rash Persistent Moderat e Active Zithromax Z-Charlie 2 rash Persistent Moderate Act elena Morphine Sulfate ADD-[place] 3 heart races Persisten t Mild Active [...] 15:52:00 EST, Route to Pharmacy Electronically, [id number], Partial fill upon patient request if the [...] Team Personnel Name: Rehana Kinsey RN Position: [facility] SN RN Member Role: Primary Care Nurse Name: Nelly Liu RN Position: S RN Member Role: Primary Care Nurse Name: Stacey Quevedo RN Position: S RN Member Role: Primary Care Nurse Name: Zuri Feldman MD Position: Reference Physician Member Role: PCP Address: Address: [address] [place] [address] Name: Elvira Jefferson RN Position: S RN Member Role: Primary Care Nurse Care Team Related Persons Name: BRIANA HOWE Address: home [address] [place] [address] Name: KUMAR HOWE Address: home [address] [place] [address] Name: RICARDO HOWE OR DAMON Address: [address]
--- OUTSIDE RECORDS SUMMARY | 2023-11-11 08:44 | XMS_ITS | Continuity of Care Document ---
Author Name Unknown Organization [facility] Address [address] [place] [address]- Care Team Providers Care Ladle Puller Name Role Phone Po Zuri KING Primary Care Physician [place] [facility] [place]20 [place] 08/26/20 [facility] [address] [place] [address]- Allergies, Adverse Reactions, Alerts Substance Reaction Severity [...]
--- OUTSIDE RECORDS SUMMARY | 2023-11-11 08:44 | XMS_ITS | Continuity of Care Document ---
Author Name Unknown Organization [facility] Address [address] [place] [address]- Care Team Providers Care Color Maker Name Role Phone Po Zuri KING Primary Care Physician [phone] Encounter [facility] Date(s): 08/20/21 - 09/19/21 [facility] [address] [place] [address]- Attending Physician: Admjuancho, Soto8 Admitting Physician: Admtr, Ar8 Referring Physician: Admtr, Ar8 Allergies, Adverse Reactions, Alerts Substance Reaction Severity Status Nyquil Cold Medicine 1 rash Persistent Moderat e Active Zithromax Z-Charlie 2 rash Persistent Moderate Act elena Morphine Sulfate ADD-[place] 3 heart races Persisten t Mild Active 1hives 2hives 3tachycardica Medications acetaminophen-oxyCODONE 325 mg-5 mg oral tablet 1, tablet, By Mouth, Every 4 hours, PRN, DX: Left sublclavian occlusion, # 150 tablet, Refills 0, Tot. Refills 0, Maintenance, as needed for pain, 09/07/21 15:15:00 EST, Route to Pharmacy Electronically, [facility]t, Partial fill upo... Start Date: 09/07/21 Stop Date: 09/28/21 Status: Ordered Aspirin = 81 mg, By [...]
--- OUTSIDE RECORDS SUMMARY | 2023-11-11 08:44 | XMS_ITS | Continuity of Care Document ---
Author Name Unknown Organization [facility] Address [address] [place] [address]- Care Team Providers Care Tableau Lead Name Role Phone Po Zuri KING Primary Care Physician Encounter [facility] Date(s): 07/07/23 - 08/06/23 [facility] [address] [place] [address]- Allergies, Adverse Reactions, Alerts Substance Reaction Severity Status Nyquil Cold Medicine 1 rash Persistent Moderat e Active Zithromax Z-Charlie 2 rash Persistent Moderate Act elena Morphine Sulfate ADD-[place] 3 heart races Persisten t Mild Active [...] Team Personnel Name: Rehana Kinsey RN Position: [facility] SN RN Member Role: Primary Care Nurse Name: Nelly Liu RN Position: S RN Member Role: Primary Care Nurse Name: Stacey Quevedo RN Position: S RN Member Role: Primary Care Nurse Name: Zuri Feldman MD Position: Reference Physician Member Role: PCP Address: Address: [address] [place] [address] Name: Elvira Jefferson RN Position: S RN Member Role: Primary Care Nurse Care Team Related Persons Name: BRIANA HOWE Address: home [address] [place] [address] Name: KUMAR HOWE Address: home [address] [place] [address] Name: RICARDO HOWE OR DAMON Address: [address]
--- OUTSIDE RECORDS SUMMARY | 2023-11-11 08:44 | XMS_ITS | Continuity of Care Document ---
Author Name Unknown Organization [facility] Address [address] [place] [address]- Care Team Providers Care Brain Picker Name Role Phone Po Zuri KING Primary Care Physician Encounter [facility] [place] Date(s): 11/01/22 - 12/01/22 [facility] [address] [place] [address]- Allergies, Adverse Reactions, Alerts Substance Reaction Severity Status Nyquil Cold Medicine 1 rash Persistent Moderat e Active Zithromax Z-Charlie 2 rash Persistent Moderate Act elena Morphine Sulfate ADD-[place] 3 heart races Persisten t Mild Active 1hives 2hives 3tachycardica Medications acetaminophen-oxyCODONE 325 mg-5 mg oral tablet 1, tablet, By Mouth, Every 4 hours, PRN, DX: Left sublclavian occlusion, # 150 tablet, Refills 0, Tot. Refills 0, Maintenance, as needed for pain, 11/18/22 10:54:00 EST, Route to Pharmacy Electronically, [facility]t, Partial fill upo... Start Date: 11/18/22 Stop Date: 12/13/22 Status: Ordered Aspirin = 81 mg, By [...] Reference Physician Member Role: PCP Address: Address: [address] [place] [address] Name: Elvira Jefferson RN Position: S RN Member Role: Primary Care Nurse Care Team Related Persons Name: BRIANA HOWE Address: home [address] [place] [address] Name: KUMAR HOWE Address: home [address] [place] [address] Name: RICARDO HWOE OR DAMON Address: home [address] [place] [address]
--- OUTSIDE RECORDS SUMMARY | 2023-11-11 08:44 | XMS_ITS | Continuity of Care Document ---
Author Name Unknown Organization [facility] Address [address] [place] [address]- Care Team Providers Care Testing Machine Operator Name Role Phone Po Zuri KING Primary Care Physician En[place] [facility] [place] Date(s): 07/25/22 - 08/24/22 [facility] [address] [place] [address]- Allergies, Adverse Reactions, Alerts Substance Reaction Severity Status Nyquil Cold Medicine 1 rash Persistent Moderat e Active Zithromax Z-Charlie 2 rash Persistent Moderate Act elena Morphine Sulfate ADD-[place] 3 heart races Persisten t Mild Active [...] drug., 170, cm, 03/01/22 9:08:00... Start Date: 9/16/22 Status: Ordered Flonase 50 mcg/inh nasal spray 1 sprays, Daily, 0 Refills, Maintenance, 08/11/15 8:46:59 Start Date: 08/11/15 Status: Ordered gabapentin 300 mg oral capsule See Instructions, TAKE 1 CAPSULE BY MOUTH 3 TIMES A DAY, # 270 capsule, Refills 3, Maintenance, 08/23/22 12:28:00 EDT, Instructions Replace Required Details, Route to Pharmacy Electronically, [facility], 170, cm, 03/01/22 9:08:00 EDT, He... Start [...] Personnel Name: Zuri Feldman MD Address: Address: [address] [place] [address]
--- OUTSIDE RECORDS SUMMARY | 2023-11-11 08:44 | XMS_ITS | Continuity of Care Document ---
Author Name Unknown Organization [facility] Address [address] [place] [address]- Care Team Providers Care Rollway Worker Name Role Phone Po Zuri KING Primary Care Physician Encounter [facility] Date(s): 08/18/23 - 09/17/23 [facility] [address] [place] [address]- Allergies, Adverse Reactions, Alerts Substance Reaction Severity Status Nyquil Cold Medicine 1 rash Persistent Moderat e Active Zithromax Z-Charlie 2 rash Persistent Moderate Act elena Morphine Sulfate ADD-[place] 3 heart races Persisten t Mild Active [...] 15:52:00 EST, Route to Pharmacy Electronically, [id number], Partial fill upon patient request if the [...] Team Personnel Name: Rehana Kinsey RN [facility] SN RN Member Role: Primary Care Nurse Name: Nelly Liu RN Position: S RN Member Role: Primary Care Nurse Name: Stacey Quevedo RN Position: S RN Member Role: Primary Care Nurse Name: Zuri Feldman MD Position: Reference Physician Member Role: PCP Address: Address: [address] [place] [address] Name: Elvira Jefferson RN Position: S RN Member Role: Primary Care Nurse Care Team Related Persons Name: BRIANA HOWE Address: home [address] [place] [id number] Name: KUMAR HOWE Address: home [address] [place] [address] Name: RICARDO HOWE OR DAMON Address: [address]
--- OUTSIDE RECORDS SUMMARY | 2023-11-11 08:44 | XMS_ITS | Continuity of Care Document ---
Author Name Unknown Organization [facility] Address [address] [place] [address]- Care Team Providers Care Filling Room Operator Name Role Phone Po Zuri KING Primary Care Physician [phone] Encounter [facility] [place] Date(s): 10/09/23 - 10/16/23 [facility] [address] [place], [place] [address] Attending Physician: Sharon KING, Salbador Gurrola Admitting Physician: Salbador Herrera MD Allergies, Adverse Reactions, Alerts Substance Reaction Severity Status Nyquil Cold Medicine 1 rash Persistent Moderat e Active Zithromax Z-Charlie 2 rash Persistent Moderate Act elena Morphine Sulfate ADD-[place] 3 heart races Persisten t Mild Active [...] Team Personnel Name: Rehana Kinsey RN Position: [facility] SN RN Member Role: Primary Care Nurse Name: Nelly Liu RN Position: S RN Member Role: Primary Care Nurse Name: Stacey Quevedo RN Position: S RN Member Role: Primary Care Nurse Name: Zuri Feldman MD Position: Reference Physician Member Role: PCP Address: Address: [address] [place] [address] Name: Elvira Jefferson RN Position: S RN Member Role: Primary Care Nurse Care Team Related Persons Name: BRIANA HOWE Address: home [address] [place] [id number] Name: KUMAR HOWE Address: home [address] [place] [address] Name: RICARDO HOWE OR DAMON Address: home [address] [place] [address]
--- OUTSIDE RECORDS SUMMARY | 2023-11-11 08:44 | XMS_ITS | Continuity of Care Document ---
Author Name Unknown Organization [facility] Address [address] [place] [address]- Care Team Providers Care Brazing Machine Tender Name Role Phone Zuri Feldman MD Primary Care Physician [phone] Encounter [facility] [place]CT R [id number] Date(s): 05/23/23 - 05/30/23 [facility] [address] [place] [address]- Attending Physician: Sharon KING, Salbador Gurrola Admitting Physician: Salbador Herrera MD Allergies, Adverse Reactions, Alerts Substance Reaction Severity Status Nyquil Cold Medicine 1 rash Persistent Moderat e Active Zithromax Z-Charlie 2 rash Persistent Moderate Act elena Morphine Sulfate ADD-[place] 3 heart races Persisten t Mild Active 1hives 2hives 3tachycardica Medications acetaminophen-oxyCODONE 325 mg-5 mg oral tablet 1, tablet, By Mouth, Every 4 hours, PRN, DX: Left sublclavian occlusion, # 150 tablet, Refills 0, Tot. Refills 0, Maintenance, as needed for pain, 05/19/23 23:28:00 EDT, Route to Pharmacy Electronically, [facility] Tablet, Partial fill upo... Start Date: 05/19/23 Stop Date: 06/13/23 Status: Ordered Aspirin = 81 mg, By [...] Required Details, Route to Pharmacy Electronically, [facility], 170, cm, 03/01/22 9:08:00 EDT, [...] VERIFY Event Display: Patient Education/Instruction Authored Date: [id number] [facility] *[facility] [address] Clinical Summary Name TRACIE HOWE Age 63 Years 1960 PCP [facility] Feldman MD [id number] Visit Date 05/23/2023 06:46:00 Additional Instructions: Scheduled Appointments?? Future Appointments ?No Future Appointments Scheduled Follow-Up Instructions ?? With: Address: When: Salbador Herrera MD 05/23/2023 12:00 AM Comments: Clinical follow-up in 3 months with??[id number] or phone visit. Diagnosis Medications: Please continue your medications until [...] 1 tab(s) Oral twice a day. Refills: 1. Next Dose: Aspirin 81 Milligram Oral Daily [...] Left sublclavian occlusion. Refills: 0. Next Dose: Oxycodone / Acetaminophen [...] day. Next Dose: Allergy Info:?? Morphine Sulfate ADD-[place]; Zithromax Z-Charlie; Nyquil Cold Medicine Medications Given This Visit Future Orders ?No future orders Vital Signs Height Weight BMI Blood Pressure / Temperature Pulse Rate Respiratory Rate 02 Sat Mode of Delivery / You can now view a summary of your hospital visit from the comfort of your home through a free online portal called Cleeng. Cleeng is a website that allows you to securely view your medical information including discharge summary, medications and follow-up visits. ??You can alsosend a secure electronic message to your doctor???s office to request appointments, renew medications or just ask a question. You can enroll at [email or web address] or register during your next office visit. [...] primary care provider, you may find a [facility] provider by calling [facility] at [phone]. For information about the plan of care [...] Team Personnel Name: Rehana Kinsey RN Position: [facility] RN Member Role: Primary Care Nurse Name: Nelly Liu RN Position: S RN Member Role: Primary Care Nurse Name: Stacey Quevedo RN Position: S RN Member Role: Primary Care Nurse Name: Zuri Feldman MD Position: Reference Physician Member Role: PCP Address: Address: [address] [place] [address] Name: Elvira Jefferson RN Position: S RN Member Role: Primary Care Nurse Care Team Related Persons Name: BRIANA HOWE Address: [address] Name: KUMAR HOWE Address: [address] Name: RICARDO HOWE Address: [address] [address]
--- OUTSIDE RECORDS SUMMARY | 2023-11-11 08:44 | XMS_ITS | Continuity of Care Document ---
Author Name Unknown Organization [facility] Address [address] [place] [address]- Care Team Providers Care Branch Service Representative Name Role Phone Po Zuri KING Primary Care Physician Encounter [facility] [place] ACCT R [id number] Date(s): 06/03/22 - 07/03/22 [facility] [address] [place] [address]- Attending Physician: Admjuancho, Soto8 Admitting Physician: Admtr, Ar8 Referring Physician: Admtr, Ar8 Allergies, Adverse Reactions, Alerts Substance Reaction Severity Status Nyquil Cold Medicine 1 rash Persistent Moderat e Active Zithromax Z-Charlie 2 rash Persistent Moderate Act elena Morphine Sulfate ADD-[place] 3 heart races Persisten t Mild Active [...] to Pharmacy Electronically, [facility], 170, cm, 229:08:00 EDT, Height Start Date: [...] Team Personnel Name: Zuri Feldman MD Address: [address] [place] [id number]
--- OUTSIDE RECORDS SUMMARY | 2023-11-11 08:44 | XMS_ITS | Continuity of Care Document ---
Author Name Unknown Organization [facility] Address [address] [place] [address]- Care Team Providers Care Intelligence Clerk Name Role Phone Po Zuri KING Primary Care Physician Encounter [facility] [place] Date(s): 06/19/23 - 07/19/23 [facility] [address] [place] [address]- Allergies, Adverse Reactions, Alerts Substance Reaction Severity Status Nyquil Cold Medicine 1 rash Persistent Moderat e Active Zithromax Z-Charlie 2 rash Persistent Moderate Act elena Morphine Sulfate ADD-[place] 3 heart races Persisten t Mild Active [...] Team Personnel Name: Rehana Kinsey RN Position: [facility] SN RN Member Role: Primary Care Nurse Name: Nelly Liu RN Position: S RN Member Role: Primary Care Nurse Name: Stacey Quevedo RN Position: S RN Member Role: Primary Care Nurse Name: Zuri Feldman MD Position: Reference Physician Member Role: PCP Address: Address: [address] [place] [address] Name: Elvira Jefferson RN Position: S RN Member Role: Primary Care Nurse Care Team Related Persons Name: BRIANA HOWE Address: home [address] [place] [address] Name: KUMAR HOWE Address: home [address] [place] [address] Name: RICARDO HOWE OR DAMON Address: [address]
--- OUTSIDE RECORDS SUMMARY | 2023-11-11 08:44 | XMS_ITS | Continuity of Care Document ---
Author Name Unknown Organization [facility] Address [address] [place] [address]- Care Team Providers Care Neighborhood Service Center Director Name Role Phone Zuri Feldman MD Primary Care Physician [place] [facility] [place] 07/06/21 - 07/13/21 [facility] [address] [place] [address]- Attending Physician: Jarrod Durbin MD Admitting Physician: Jarrod Durbin MD Referring Physician: Zuri Feldman MD Allergies, Adverse Reactions, Alerts Substance Reaction Severity Status Nyquil Cold Medicine 1 rash Persistent Moderat e Active Zithromax Z-Charlie 2 rash Persistent Moderate Act elena Morphine Sulfate ADD-[place] 3 heart races Persisten t Mild Active [...]
--- OUTSIDE RECORDS SUMMARY | 2023-11-11 08:45 | XMS_ITS | Continuity of Care Document ---
Author Name Unknown Organization 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 [address] [place] [address]- [facility] Attending Physician: Jarrod Durbin MD Admitting Physician: Jarrod Durbin MD Referring Physician: Zuri Feldman MD Allergies, Adverse Reactions, Alerts Substance Reaction Severity Status Nyquil Cold Medicine 1 rash Persistent Moderat e Active Zithromax Z-Charlie 2 rash Persistent Moderate Act elena Morphine Sulfate ADD-[place] 3 heart races Persisten t Mild Active 1hives 2hives 3tachycardica Medications acetaminophen-oxyCODONE 325 mg-5 mg oral tablet 1, tablet, By Mouth, Every 6 hours, PRN, # 120 tablet, Refills 0, Tot. Refills 0, Acute, as needed for pain, 04/05/20 11:59:00 EDT, 03/06/20 15:20:00 EDT, Route to Pharmacy Electronically, [facility] Tablet, Partial fill upon patient reque... Start Date: 03/06/20 Stop Date: 04/05/20 Status: Ordered Aspirin = 81 mg, By [...] oldest [Reference Range]: 1 Height 174 cm (03/23/20 9:52 AM) Weight 77.3 kg (03/23/20 9:52 AM) Body Mass Index [18.5-24.99] 25.53 *H* (03/23/20 9:52 AM) Weight Obtained Via Patient/family state d (03/23/20 9:52 AM) Social History Social History Type Response Smoking Status Former smoker; Other : quit nov 2017; entered on: 03/13/18 Sex
--- OUTSIDE RECORDS SUMMARY | 2023-11-11 08:45 | XMS_ITS | Continuity of Care Document ---
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 Role Phone Po Zuri KING Primary Care Physician Encounter [facility] [place] Date(s): 05/19/23 - 06/18/23 [facility] [address] [place] [address]- Allergies, Adverse Reactions, Alerts Substance Reaction Severity Status Nyquil Cold Medicine 1 rash Persistent Moderat e Active Zithromax Z-Charlie 2 rash Persistent Moderate Act elena Morphine Sulfate ADD-[place] 3 heart races Persisten t Mild Active [...] tablet, 3 Refills, Maintenance, 06/13/23 11:43:00 EDT, [facility], 173, cm, 02/07/23 13:33:00 EDT, [...] Required Details, Route to Pharmacy Electronically, [facility], 170, cm, 03/01/22 9:08:00 EDT, He... [...] Team Personnel Name: Rehana Kinsey RN Position: [facility] SN RN Member Role: Primary Care Nurse Name: Nelly Liu RN Position: S RN Member Role: Primary Care Nurse Name: Stacey Quevedo RN Position: S RN Member Role: Primary Care Nurse Name: Zuri Feldman MD Position: Reference Physician Member Role: PCP Address: Address: [address] [place] [address] Name: Elvira Jefferson RN Position: S RN Member Role: Primary Care Nurse Care Team Related Persons Name: BRIANA HOWE Address: home [address] [place] [address] Name: KUMAR HOWE Address: home [address] [place] [address] Name: RICARDO HOWE OR DAMON Address: [address]
--- OUTSIDE RECORDS SUMMARY | 2023-11-11 08:45 | XMS_ITS | Continuity of Care Document ---
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
--- OUTSIDE RECORDS SUMMARY | 2023-11-11 08:45 | XMS_ITS | Continuity of Care Document ---
Author Name Unknown Organization [facility] Address [address] [place] [address]- Care Team Providers Care Mexican Food Maker Hand Name Role Phone Po Zuri KING Primary Care Physician [phone] Encounter [facility] [place] Date(s): 04/01/22 - 05/01/22 [facility] [address] [place] [address]- Allergies, Adverse Reactions, Alerts Substance Reaction Severity Status Nyquil Cold Medicine 1 rash Persistent Moderat e Active Zithromax Z-Charlie 2 rash Persistent Moderate Act elena Morphine Sulfate ADD-[place] 3 heart races Persisten t Mild Active 1hives 2hives 3tachycardica Medications acetaminophen-oxyCODONE 325 mg-5 mg oral tablet 1, tablet, By Mouth, Every 4 hours, PRN, DX: Left sublclavian occlusion, # 150 tablet, Refills 0, Tot. Refills 0, Maintenance, as needed for pain, 04/26/22 12:53:00 EDT, Route to Pharmacy Electronically, [facility] Tablet, Partial fill upo... Start Date: 04/26/22 Status: Ordered Aspirin = 81 mg, By [...]
--- OUTSIDE RECORDS SUMMARY | 2023-11-11 08:45 | XMS_ITS | Continuity of Care Document ---
Author Name Unknown Organization [facility] Address [address] [place] [address]- Care Team Providers Care Supervisor Plating And Point Assembly Name Role Phone Zuri Feldman MD Primary Care Physician [place] [facility] [place] Date(s): 08/20/21 - 08/27/21 [facility] [address] [place] [address]- Attending Physician: Jarrod Durbin MD Admitting Physician: Jarrod Durbin MD Referring Physician: Zuri Feldman MD Allergies, Adverse Reactions, Alerts Substance Reaction Severity Status Nyquil Cold Medicine 1 rash Persistent Moderat e Active Zithromax Z-Charlie 2 rash Persistent Moderate Act elena Morphine Sulfate ADD-[place] 3 heart races Persisten t Mild Active [...]
--- OUTSIDE RECORDS SUMMARY | 2023-11-11 08:45 | XMS_ITS | Continuity of Care Document ---
Author Name Unknown Organization [facility] Address [address] [place] [address]- Care Team Providers Care Cotton Stomper Name Role Phone Po Zuri KING Primary Care Physician [place] [facility] [place] 11/15/22 - 12/15/22 [facility] [address] [place] [address]- Allergies, Adverse Reactions, Alerts Substance Reaction Severity Status Nyquil Cold Medicine 1 rash Persistent Moderat e Active Zithromax Z-Charlie 2 rash Persistent Moderate Act elena Morphine Sulfate ADD-[place] 3 heart races Persisten t Mild Active 1hives 2hives 3tachycardica Medications acetaminophen-oxyCODONE 325 mg-5 mg oral tablet 1, tablet, By Mouth, Every 4 hours, PRN, DX: Left sublclavian occlusion, # 150 tablet, Refills 0, Tot. Refills 0, Maintenance, as needed for pain, 12/11/22 8:20:00 EST, Route to Pharmacy Electronically, [facility] Tablet, Partial fill upon... Start Date: 12/11/22 Stop Date: 01/05/23 Status: Ordered Aspirin = 81 mg, By [...] Required Details, Route to Pharmacy Electronically, [facility], 170, cm, 03/01/22 9:08:00 EDT, He... [...] Reference Physician Member Role: PCP Address: Address: [address] [place] [address] Name: Elvira Jefferson RN Position: S RN Member Role: Primary Care Nurse Care Team Related Persons Name: BRIANA HOWE Address: home [address] [place] [address] Name: KUMAR HOWE Address: home [address] [place] [address] Name: RICARDO HOWE OR DAMON Address: home [address] [place] [address]
--- OUTSIDE RECORDS SUMMARY | 2023-11-11 08:45 | XMS_ITS | Continuity of Care Document ---
Author Name Unknown Organization [facility] Address [address] [place] [address]- Care Team Providers Care Rn Case Manager Name Role Phone Po Zuri KING Primary Care Physician [phone] [place] [facility] [place] 05/03/20 - 06/02/20 [facility] [address] [place] [address]- [facility] Allergies, Adverse Reactions, Alerts Substance Reaction Severity Status Nyquil Cold Medicine 1 rash Persistent Moderat e Active Zithromax Z-Charlie 2 rash Persistent Moderate Act elena Morphine Sulfate ADD-[place] 3 heart races Persisten t Mild Active [...]
--- OUTSIDE RECORDS SUMMARY | 2023-11-11 08:45 | XMS_ITS | Continuity of Care Document ---
Author Name Unknown Organization [facility] Address [address] [place] [address]- Care Team Providers Care Correctional Nurse Name Role Phone Zuri Feldman MD Primary Care Physician En[place] [facility] [place] [id number] Date(s): 04/06/21 - 04/13/21 [facility] [address] [place] [address]- Attending Physician: Jarrod Durbin MD Admitting Physician: Jarrod Durbin MD Referring Physician: Zuri Feldman MD Allergies, Adverse Reactions, Alerts Substance Reaction Severity Status Nyquil Cold Medicine 1 rash Persistent Moderat e Active Zithromax Z-Charlie 2 rash Persistent Moderate Act elena Morphine Sulfate ADD-[place] 3 heart races Persisten t Mild Active [...] oldest [Reference Range]: 1 Height 174 cm (04/06/21 9:35 AM) Weight 83.9 kg (04/06/21 9:35 AM) Oxygen Saturation [94-100 %] 95 % (04/06/21 9:35 AM) Pulse Rate [55-90 bpm] 85 bpm (04/06/21 9:35 AM) Body Mass Index [18.5-24.99] 27.71 *H* (04/06/21 9:35 AM) Blood Pressure [90-138/55-84 mm Hg] 98/6 4mm Hg (04/06/21 9:35 AM) Mode of Delivery (Oxygen) Room air (04/06/21 9:35 AM) Blood pressure sites Arm, right (04/06/21 9:35 AM) Weight Obtained Via Patient/family state d (04/06/21 9:35 AM) Social History Social History Type Response Smoking Status Former smoker; Other : quit nov 2017; entered on: 03/13/18 Sex
--- OUTSIDE RECORDS SUMMARY | 2023-11-11 08:45 | XMS_ITS | Continuity of Care Document ---
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 Name Role Phone Po Zuri KING Primary Care Physician [phone] [place] [facility] [place](s): 03/04/22 - 04/03/22 [facility] [address] [place] [address]- Allergies, Adverse Reactions, Alerts Substance Reaction Severity Status Nyquil Cold Medicine 1 rash Persistent Moderat e Active Zithromax Z-Charlie 2 rash Persistent Moderate Act elena Morphine Sulfate ADD-[place] 3 heart races Persisten t Mild Active 1hives 2hives 3tachycardica Medications acetaminophen-oxyCODONE 325 mg-5 mg oral tablet 1, tablet, By Mouth, Every 4 hours, PRN, DX: Left sublclavian occlusion, # 150 tablet, Refills 0, Tot. Refills 0, Maintenance, as needed for pain, 04/02/22 12:30:00 EDT, Route to Pharmacy Electronically, [facility]t, Partial fill upo... Start Date: 04/02/22 Status: Ordered Aspirin = 81 mg, By [...]
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
--- OUTSIDE RECORDS SUMMARY | 2023-11-11 08:45 | XMS_ITS | Continuity of Care Document ---
Author Name Unknown Organization [facility] Address [address] [place] [address]- Care Team Providers Care Game Manager Name Role Phone Po Zuri KING Primary Care Physician Encounter [facility] Date(s): 11/14/20 - 12/14/20 [facility] [address] [place] [address]- Allergies, Adverse Reactions, Alerts Substance Reaction Severity Status Nyquil Cold Medicine 1 rash Persistent Moderat e Active Zithromax Z-Charlie 2 rash Persistent Moderate Act elena Morphine Sulfate ADD-[place] 3 heart races Persisten t Mild Active [...]
--- OUTSIDE RECORDS SUMMARY | 2023-11-11 08:45 | XMS_ITS | Continuity of Care Document ---
Author Name Unknown Organization [facility] Address [address] [place] [id number] Care Team Providers Care Blacktop Spreader Name Role Phone Zuri Feldman MD Primary Care Physician Encounter [facility] [place] Date(s): 05/01/20 - 05/08/20 [facility] [address] [place] [id number] [facility] Attending Physician: Jarrod Durbin MD Admitting Physician: Jarrod Durbin MD Referring Physician: Zuri Feldman MD Allergies, Adverse Reactions, Alerts Substance Reaction Severity Status Nyquil Cold Medicine 1 rash Persistent Moderat e Active Zithromax Z-Charlie 2 rash Persistent Moderate Act elena Morphine Sulfate ADD-Rogers 3 heart races Persisten t Mild Active 1hives 2hives 3tachycardica Medications acetaminophen-oxyCODONE 325 mg-5 mg oral tablet 1, tablet, By Mouth, Every 6 hours, PRN, DX: Left sublclavian occlusion, # 120 tablet, Refills 0, Tot. Refills 0, Maintenance, as needed for pain, 04/10/20 13:57:00 EDT, Route to Pharmacy Electronically, [facility] Tablet, Partial fill upo... Start Date: 04/10/20 Status: Ordered Aspirin = 81 mg, By [...] oldest [Reference Range]: 1 Height 174 cm (05/01/20 10:26 AM) Weight 79 kg (05/01/20 10:26 AM) Pulse Rate [55-90 bpm] 80 bpm (05/01/20 10:26 AM) Body Mass Index [18.5-24.99] 26.09 *H* (05/01/20 10:26 AM) Blood Pressure [90-138/55-84 mm Hg] 124/ 62mm Hg (05/01/20 10:26 AM) Blood pressure sites Arm, right (05/01/20 10:26 AM) Weight Obtained Via Patient/family state d (05/01/20 10:26 AM) Social History Social History Type Response Smoking Status Former smoker; Other : quit nov 2017; entered on: 03/13/18 Sex
[2023-11-11] MEDS: Albuterol Sulfate (0.083%) 2.5 MG/3 ML VIAL.NEB INHALE (08:54)
[2023-11-11 08:57] VITALS: PULSE 104; RESP 24; O2SAT 95
--- NOTE | 2023-11-11 09:58 | PC.NURSE ---
pt sob, tachy even after settling down in bed after chg cloths done. iv put in by ultrasound by anesthesia due to poor veins. ivf bolus running. temp 101.7 orally. surgery cancelled. rsv/flu/covid swab sent, ordered by anesthesia.April stated to finish bolus and wait for lab results. ? er. swab sent down at 910am
[2023-11-11 10:23] LABS: Influenza A PCR NEGATIVE (Negative); Influenza B PCR NEGATIVE (Negative); Resp Syncy Virus RNA Qual PCR NEGATIVE (Negative); SARS COV2 PCR INHOUSE NEGATIVE (Negative)
--- NOTE | 2023-11-11 11:04 | PC.NURSE ---
pt results all negative for rsv, flu, and covid. morales spoke with patient. iv d/c'd and sent home. pt called for his ride.
--- NOTE | 2023-11-11 11:26 | PHA.MEDREC ---
Pharmacy Consult ? Medication Reconciliation RN has completed the medication reconciliation, PHARMACY REVIEWED.
== END ==
LOC: HO.SSSA 11:37 → HO.SSS 11-12 11:14
PROVIDERS: Anesthesiology; Physician Assistant; PCP Internal Medicine; Visit Provider Orthopaedic Surgery
DX: M16.11 Unilateral primary osteoarthritis, right hip (principal); Z53.09 Procedure and treatment not carried out because of other contraindication; R06.02 Shortness of breath; R69 Illness, unspecified; Z11.52 Encounter for screening for COVID-19
CPT/HCPCS: 0241U; 86850; 86870; 86885; 86900; 86901; 86902; 86920; 86922; 87640; 87641; 94640; J0690

== ENCOUNTER 2023-11-12 14:27 | Outpatient (AMB) | payer MEDICARE, MEDICAID, SELFPAY ==
--- NOTE | 2023-11-12 14:28 | A.OFFPC_ITS ---
Intake Visit Reasons: Sinus Infection, Cyst? Allergies dextromethorphan [From NYQUIL] Allergy (Unknown, Verified 11/12/23 14:28) HIVES divalproex sodium [Depakote] Allergy (Unknown, Verified 11/12/23 14:28) Unknown doxylamine [From NYQUIL] Allergy (Unknown, Verified 11/12/23 14:28) HIVES morphine [MORPHINE] Allergy (Unknown, Verified 11/12/23 14:28) TACHYCARDIA pseudoephedrine [From DAYQUIL SINUS PRESSURE/PAIN] Allergy (Unknown, Verified 11/12/23 14:28) HIVES rosuvastatin Allergy (Unknown, Verified 11/12/23 14:28) sob Medication List - Last Reconciled 11/12/23 by Zuri Feldman MD [shower chair As directed] albuterol sulfate 2.5 mg (3 mL) inhalation QID PRN 30 days albuterol sulfate 90 mcg/actuation 2 puffs PO Q6H PRN NS alprazolam 0.25 mg PO BEDTIME PRN amoxicillin-pot clavulanate 875-125 mg 1 tab PO BID apixaban (Eliquis) 2.5 mg PO BID atorvastatin 80 mg PO DAILY clotrimazole-betamethasone 1-0.05 % 1 appl topical BID PRN fluticasone propion-salmeterol 250-50 mcg/dose (Wixela Inhub) 1 inh inhalation BID 30 days fluticasone propionate 50 mcg/actuation 2 sprays intranasal DAILY gabapentin 300 mg PO TID meloxicam 15 mg PO DAILY miconazole nitrate 2% (Zeasorb AF) 1 appl topical BID PRN omeprazole 20 mg PO BID@0630,1630 tamsulosin 0.4 mg PO BEDTIME 90 days tramadol 50 mg PO Q4H PRN varenicline (Chantix Continuing Month Box) 1 mg PO BID [WALKER As directed] Tobacco use date assessed: 10/21/23 Fall risk assessment: No Falls in past year Last assessed Fall Risk: 11/12/23 Dental Screening Dental Screen Date: 11/12/23 Did you have a dental visit in the last 12 months?: No Did you have a dental problem in the last 6 months where you did not have access to dental care?: No Was dental information given to patient?: No HPI Sinus Infection, Cyst? HPI Details 63-year-old male smoker with a history o f COPD , GERD, hypercholesterolemia having right hip osteoarthritis planned arthroplasty 11/12/2023 calling in through Telehealth for an acute problem. sinus congestion , fever- cancelled knee arthroplasty. states hayes s pimple on the groin also? [facility] Medical History Tinea cruris Arthritis Abdominal hernia Numbness Cough Habitual snoring Atelectasis of left lung COPD (chronic obstructive pulmonary disease) Smoker Pes anserinus bursitis of left knee Upper respiratory tract infection Rib fractures Annual physical exam Contusion of chest Back strain Osteoarthritis of right hip Right hip pain Right middle lobe pulmonary infiltrate SOB (shortness of breath) Sinus congestion Overweight (BMI 25.0-29.9) Urgency of micturition Carpal tunnel syndrome Femoral fracture Pulmonary nodule BPH (benign prostatic hyperplasia) Seizure disorder Insomnia Vitamin D deficiency Impaired glucose tolerance Hypercholesterolemia Anxiety GERD (gastroesophageal reflux disease) Polysubstance abuse Left subclavian artery occlusion Brain aneurysm CVA (cerebral vascular accident) Vocal cord polyp Vitamin B12 deficiency Surgical History History of nasal surgery H/O colonoscopy Stenosis of subclavian bypass History of surgery History of orthopedic surgery History of knee replacement procedure of right knee Family History Father CAD (coronary artery disease) Kidney malignancy Mother Myocardial infarction Brother Prostate cancer Social History Housing: Other Housing Other:: Trailer Are you a primary healthcare technician to a significant other at home: No Do you presently have visiting nurse or other home services: No Alcohol intake: current Alcohol intake frequency: 0-2 drinks per day Alcohol type: beer Patient Tobacco Use Status: Current everyday Tobacco user Tobacco use type: Cigarette Cigarettes Per Day: 5 Years Smoked: not ready to stop 12/2022, e-Cigarette/Vaping Use: Never Used Second Hand Smoke Exposure: No service: No Current occupational status: unemployed Cognitive needs: No Hearing needs: No Vision needs: Yes Questionnaire PHQ-9 Over the last 2 weeks, how often have you been bothered by any of the following problems? 1. Little interest or pleasure in doing things: not at all 2. Feeling down, depressed, or hopeless: not at all 3. Trouble falling or staying asleep, or sleeping too much: not at all 4. Feeling tired or having little energy: not at all 5. Poor appetite or overeating: not at all 6. Feeling bad about yourself - or that you are a failure or have let yourself or your family down: not at all 7. Trouble concentrating on things, such as reading the newspaper or watching television: not at all 8. Moving or speaking so slowly that other people could have noticed. Or the opposite - being so fidgety or restless that you have been moving around a lot more than usual: not at all 9. Thoughts that you would be better off or of hurting yourself in some way: not at all Total score: 0 Depression Screening Interpretation: Negative Depression Screening Done: Yes Source: Developed by Drs. Basilio Esteves, Gina Sales, Zev Ambriz and colleagues, with an educational teodoro from [employer]. Thrive Questionnaire Date Thrive assessed: 11/12/23 I am a: Patient What is your living situation today?: I have a steady place to live Within the past 12 months, did the food you bought not last and you didn't have the money to get more?: Never true Within the past 12 months, did you worry whether your food would run out before you got money to buy more?: Never true Do you have trouble paying for medicines?: No Do you have trouble getting transportation to medical appointments?: No Do you have trouble paying your heating and electricity bill?: No Do you have trouble taking care of your child, family member or friend?: No Do you have trouble with day-to-day activities such as bathing, preparing meals, shopping, managing finances, etc.?: No Are you currently unemployed and looking for a job?: No Are you interested in more education?: No Currently or been in a relationship where the following occur: no concerns reported THRIVE Score: 0 AUDIT C Alcohol Use Questionnaire (AUDIT-C) 1. How often do you have a drink containing alcohol?: 2-4 times a month 2. How many drinks containing alcohol do you have on a typical day when you are drinking?: 1 or 2 3. How often do you have six or more drinks on one occasion?: Never Total Score: 2 DANIE-7 AMB Questionnaire DANIE-7 Date DANIE - 7 assessed: 11/12/23 Feeling nervous, anxious, or on edge: 0 = Not at all Not being able to stop or control worryin = Not at all Worrying too much about different things: 0 = Not at all Trouble relaxin = Not at all Being so restless that it is hard to sit still: 0 = Not at all Becoming easily annoyed or irritable: 0 = Not at all Feeling afraid as if something awful might happen: 0 = Not at all Total DANIE-7 score (0-4 normal; 5-9 mild; 10-14 moderate; 15-21 severe): 0 Source: Developed by Drs. Basilio Esteves, Gina Sales, Zev Ambriz and colleagues, with an educational teodoro from [employer]. Physical exam (Primary Care) Tobacco/Smoking Status: Tobacco use Status Tobacco use date assessed 10/21/23 11/12/23 14:30 Patient Tobacco Use Status Current everyday Tobacco 11/12/23 14:30 Tobacco use type Cigarette 11/12/23 14:30 e-Cigarette/Vaping Use Never Used 11/12/23 14:30 PHQ-9: PHQ-9 Score PHQ-9: Total score 0 11/12/23 14:30 Depression Screening Interpretation: Negative Thrive Assessment: Date of Thrive Assessment Date Thrive assessed 11/12/23 11/12/23 14:30 Currently or been in a relationship where the following occur: no concerns reported Telehealth Telehealth Location of provider rendering services: practice address Location of patient: address on file Patient Identification confirmed using: Name, : Yes Telehealth method: voice only Patient verbally consented to treatment: Yes Patient verbally consented to billing insurance company: Yes Patient informed of any privacy concerns related to visit: Yes Minutes spent on Phone/Video with Pt.: 25 Assessment and Plan Assessment & Plan (1) Osteoarthritis of right hip: Code(s): M16.11 - Unilateral primary osteoarthritis, right hip Qualifiers: Osteoarthritis type: primary Qualified Code(s): M16.11 - Unilateral primary osteoarthritis, right hip Plan: Patient has a planned surgery for arthroplasty. Surgery is postponed due to developing a fever and nasal congestion. (2) Tobacco abuse: Code(s): Z72.0 - Tobacco use Plan: Patient is strongly advised to stop smoking (3) COPD (chronic obstructive pulmonary disease): Code(s): J44.9 - Chronic obstructive pulmonary disease, unspecified Plan: Advised to stop smoking continue to use the controller inhaler in rinse mouth after using. (4) Sinusitis: Code(s): J32.9 - Chronic sinusitis, unspecified Plan: Antibiotics sent in (5) Blister of groin with infection: Comment: patient describing) Code(s): S30.821A - Blister (nonthermal) of abdominal wall, initial encounter; L08.9 - Local infection of the skin and subcutaneous tissue, unspecified Plan: Patient has been given antibiotic of penicillin group and if it is back to infection this should take care of it. Medications: New amoxicillin-pot clavulanate 875-125 mg 1 tab PO BID 20 tabs 0RF J32.9 - Chronic sinusitis, unspecified Coding Level of Care Code Tele Est Pt Level 4 (28264) Diagnoses Primary osteoarthritis of right hip M16.11 Osteoarthritis type: primary Tobacco abuse Z72.0 Pulmonary emphysema, unspecified emphysema type J44.9 Sinusitis J32.9 Blister of groin with infection S30.821A; L08.9
== END 2023-11-12 14:57 | disposition home or self-care (01) ==
LOC: HO.HMGH 14:27
PROVIDERS: PCP Internal Medicine; Visit Provider Internal Medicine
DX: M16.11 Unilateral primary osteoarthritis, right hip (principal); J44.9 Chronic obstructive pulmonary disease, unspecified; J32.9 Chronic sinusitis, unspecified; S30.821A Blister (nonthermal) of abdominal wall, initial encounter; L08.9 Local infection of the skin and subcutaneous tissue, unspecified
CPT/HCPCS: 99443

== ENCOUNTER 2023-12-02 05:56 | Inpatient (IN) | payer MEDICARE, OTHER, SELFPAY ==
[2023-11-24 12:42] VITALS: BP 125/58; PULSE 100; RESP 16; O2SAT 95; BMI 29.0
--- NOTE | 2023-11-24 13:06 | P.CONAN_ITS ---
Documented by User: Tammy Allen NP 11/24/23 13:10 HPI - Anesthesia Eval Consult details Narrative: 63yo M for Right Hip Total Replacement, 11/11/23 Previously cx'd 10/2023 for fever/cellulitis. Antibiotic course finished 11/24/23. Pulmo optimized Medically optimized Vascular optimized Dental cleared (previously cx'd d/t dental issues) No recent illness No SOB/CP with groceries/short dog walks Percocet/owen for pain Eliquis for PAD. OK to hold 2 days per Vascular COPD/Smoker. Down to 4 cigs/day from 2 packs. Rescue inhaler ~ monthly. ?Seizure. None for ~ 1 year. Rare occurence, ~yearly. Does not follow neurologist or seek medical attention post seizure. GERD. Well controlled with ppi. CVA/Brain aneurysm/ Subclavian stenosis s/p bypass. On Elquis. Follows [facility] vascular. Vocal cord polyp PMFSH Active Problems Active Problems: All Active Problems (Updated 11/24/23 @ 12:41 by Mariola Perez RN) Blister of groin with infection (Acute) Sinusitis (Acute) Osteoarthritis of right hip (Acute) Preop exam for internal medicine (Acute) Headache (Acute) Wheezing (Acute) PSA elevation (Acute) Lipoma (Acute) Nipple pain (Acute) Generalized anxiety disorder (Acute) Trochanteric bursitis, right hip (Acute) Strain of right hip adductor muscle (Acute) Right thigh pain (Acute) Benign positional vertigo (Acute) Tubular adenoma of colon (Acute) Annual physical exam (Acute) Otitis externa (Acute) Hemorrhoids (Acute) Alcohol abuse (Acute) Obesity (BMI 30.0-34.9) (Acute) Rib pain on left side (Acute) Tongue lesion (Acute) Osteoarthritis of left knee (Acute) Tobacco abuse (Acute) COPD (chronic obstructive pulmonary disease) (Acute) Tinea cruris (Acute) Atelectasis of left lung (Acute) COPD (chronic obstructive pulmonary disease) (Acute) Smoker (Acute) SOB (shortness of breath) (Acute) Osteoarthritis of right hip (Acute) Right hip pain (Acute) Left subclavian artery occlusion (Acute) CVA (cerebral vascular accident) (Acute) BPH (benign prostatic hyperplasia) (Acute) Impaired glucose tolerance (Acute) Hypercholesterolemia (Acute) Anxiety (Acute) GERD (gastroesophageal reflux disease) (Acute) Past Medical History Medical History Arthritis Abdominal hernia Numbness Cough Habitual snoring Atelectasis of left lung COPD (chronic obstructive pulmonary disease) Smoker Tinea cruris Pes anserinus bursitis of left knee Upper respiratory tract infection Rib fractures Annual physical exam Contusion of chest Back strain Osteoarthritis of right hip Right hip pain Right middle lobe pulmonary infiltrate SOB (shortness of breath) Sinus congestion Overweight (BMI 25.0-29.9) Urgency of micturition Carpal tunnel syndrome Femoral fracture Pulmonary nodule BPH (benign prostatic hyperplasia) Seizure disorder Insomnia Vitamin D deficiency Impaired glucose tolerance Hypercholesterolemia Anxiety GERD (gastroesophageal reflux disease) Polysubstance abuse Left subclavian artery occlusion Brain aneurysm CVA (cerebral vascular accident) Vocal cord polyp Vitamin B12 deficiency Family History Family History Father CAD (coronary artery disease) Kidney malignancy Mother Myocardial infarction Brother Prostate cancer Family history of problems with anesthesia: No Surgical History Surgical History History of nasal surgery H/O colonoscopy Stenosis of subclavian bypass History of surgery History of orthopedic surgery History of knee replacement procedure of right knee History of Problems with Anesthesia: No Social History Social History Household Members: Friend(s) Household Members Other:: room mate Housing: Other Housing Other:: trailer Are you a primary care director rn to a significant other at home: No Do you presently have visiting nurse or other home services: Yes (3 hours/week [employer]) Alcohol intake: current Alcohol intake frequency: 0-2 drinks per day Alcohol type: beer Patient Tobacco Use Status: Current everyday Tobacco user Tobacco use type: Cigarette Cigarettes Per Day: 5 Years Smoked: 45 Smoked in Last 30 Days: Yes e-Cigarette/Vaping Use: Never Used Patient Interested in Nicotine Replacement: Yes Patient Given Instructions on How to Stop Smoking: Yes Date Education Initiated: 11/24/23 Second Hand Smoke Exposure: Yes Use of substances other than those prescribed or required for medical reasons: Yes Substance Use Type: Marijuana Substance Use Frequency: Occasionally Have you been hit, kicked, punched, or otherwise hurt by someone within the past year? If so, by whom?: No Are you DNR?: No Advance Directives: No Advance Directives Information Provided: Yes Advance Directives on File: No Recently lost weight without trying: No Nutrition Risks: No Nutritional Risk service: No Current occupational status: unemployed Cognitive needs: No Hearing needs: No Vision needs: Yes Meds Allergies Allergy/AdvReac Type Severity Reaction Status Date / Time morphine [MORPHINE] Allergy Intermediate TACHYCARDIA Verified 11/21/23 14:24 dextromethorphan Allergy Unknown HIVES Verified 11/12/23 14:28 [From NYQUIL] divalproex sodium [Depakote] Allergy Unknown Unknown Verified 11/12/23 14:28 doxylamine [From NYQUIL] Allergy Unknown HIVES Verified 11/12/23 14:28 pseudoephedrine Allergy Unknown HIVES Verified 11/12/23 14:28 [From DAYQUIL SINUS PRESSURE/PAIN] rosuvastatin Allergy Unknown SOB Verified 11/21/23 14:24 Home Medications Medication Instructions Recorded Confirmed Last Taken Type gabapentin 300 mg capsule 300 mg PO TID 09/21/20 11/21/23 12/01/23 History apixaban 2.5 mg tablet (Eliquis) 2.5 mg PO BID 09/09/22 11/21/23 11/28/23 History atorvastatin 80 mg tablet 80 mg PO DAILY 09/08/23 12/02/23 12/01/23 History tramadol 50 mg tablet 50 mg PO Q4H PRN Pain (Scale Score 11/06/23 11/21/23 12/01/23 History 4-6) clotrimazole-betamethasone 1 1 appl topical BID PRN Rash 11/11/23 11/21/23 Unknown History %-0.05 % topical cream miconazole nitrate 2 % topical 1 appl topical BID PRN Rash 11/11/23 11/21/23 Unk nown History powder (Zeasorb AF) omeprazole 20 mg capsule,delayed 20 mg PO BID@0630,1630 11/11/23 11/21/23 12/02/23 05:00 History release lidocaine 5 % topical patch 1 patch topical DAILY 11/24/23 11/24/23 12/01/23 History tamsulosin 0.4 mg capsule 0.4 mg PO DAILY 0212/02/23 12/01/23 History Exam Height,Weight and Vital Signs: Height 5 ft 8 in Weight 86.636 kg Last Vital Signs Pulse 100 11/24/23 12:42 Resp 16 11/24/23 12:42 BP 125/58 L 11/24/23 12:42 Pulse Ox 95 11/24/23 12:42 O2 Del Method Room Air 11/24/23 12:42 Pertinent Lab Results Pertinent Lab Results: Laboratory Tests 10/22/23 10:18 WBC 9.2 Hgb 15.5 Hct 45.2 Plt Count 216 Sodium 144 Potassium 4.4 Chloride 111 H Carbon Dioxide 26 BUN 14 Creatinine 0.80 Narrative Narrative: EKG 10/2023 Vent. Rate : 077 BPM Atrial Rate : 077 BPM P-R Int : 154 ms QRS Dur : 082 ms QT Int : 372 ms P-R-T Axes : 065 012 031 degrees QTc Int : 420 ms Normal sinus rhythm Normal ECG When compared with ECG of 16-JUL-2023 12:17, No significant change was found Airway Mallampati Class: III TM Dist: >3cm Neck ROM: Full Loose/Missing/Broken Teeth: Yes (multiple molars missing) Heart: RRR Lungs: CTAB Assessment and Plan Assessment Anesthesia Assessment: Anesthesia Plan Discussed, Smoking Cess. Discussed and PAT Visit Final Anesthetic Review Family History of Problems with Anesthesia: No History of Problems with Anesthesia: No Documented by User: Waldo Lua MD 12/02/23 07:26 [facility] Past Medical History Medical History Arthritis Abdominal hernia Numbness Cough Habitual snoring Atelectasis of left lung COPD (chronic obstructive pulmonary disease) Smoker Tinea cruris Pes anserinus bursitis of left knee Upper respiratory tract infection Rib fractures Annual physical exam Contusion of chest Back strain Osteoarthritis of right hip Right hip pain Right middle lobe pulmonary infiltrate SOB (shortness of breath) Sinus congestion Overweight (BMI 25.0-29.9) Urgency of micturition Carpal tunnel syndrome Femoral fracture Pulmonary nodule BPH (benign prostatic hyperplasia) Seizure disorder Insomnia Vitamin D deficiency Impaired glucose tolerance Hypercholesterolemia Anxiety GERD (gastroesophageal reflux disease) Polysubstance abuse Left subclavian artery occlusion Brain aneurysm CVA (cerebral vascular accident) Vocal cord polyp Vitamin B12 deficiency Family History Family History Father CAD (coronary artery disease) Kidney malignancy Mother Myocardial infarction Brother Prostate cancer Surgical History Surgical History History of nasal surgery H/O colonoscopy Stenosis of subclavian bypass History of surgery History of orthopedic surgery History of knee replacement procedure of right knee Social History Social History Household Members: Friend(s) Household Members Other:: room mate Housing: Other Housing Other:: trailer Are you a primary care director rn to a significant other at home: No Do you presently have visiting nurse or other home services: Yes (3 hours/week [employer]) Alcohol intake: current Alcohol intake frequency: 0-2 drinks per day Alcohol type: beer Patient Tobacco Use Status: Current everyday Tobacco user Tobacco use type: Cigarette Cigarettes Per Day: 5 Years Smoked: 45 Smoked in Last 30 Days: Yes e-Cigarette/Vaping Use: Never Used Patient Interested in Nicotine Replacement: Yes Patient Given Instructions on How to Stop Smoking: Yes Date Education Initiated: 11/24/23 Second Hand Smoke Exposure: Yes Use of substances other than those prescribed or required for medical reasons: Yes Substance Use Type: Marijuana Substance Use Frequency: Occasionally Have you been hit, kicked, punched, or otherwise hurt by someone within the past year? If so, by whom?: No Are you DNR?: No Advance Directives: No Advance Directives Information Provided: Yes Advance Directives on File: No Recently lost weight without trying: No Nutrition Risks: No Nutritional Risk service: No Current occupational status: unemployed Cognitive needs: No Hearing needs: No Vision needs: Yes Meds Allergies Allergy/AdvReac Type Severity Reaction Status Date / Time morphine [MORPHINE] Allergy Intermediate TACHYCARDIA Verified 11/21/23 14:24 dextromethorphan Allergy Unknown HIVES Verified 11/12/23 14:28 [From NYQUIL] divalproex sodium [Depakote] Allergy Unknown Unknown Verified 11/12/23 14:28 doxylamine [From NYQUIL] Allergy Unknown HIVES Verified 11/12/23 14:28 pseudoephedrine Allergy Unknown HIVES Verified 11/12/23 14:28 [From DAYQUIL SINUS PRESSURE/PAIN] rosuvastatin Allergy Unknown SOB Verified 11/21/23 14:24 Home Medications Medication Instructions Recorded Confirmed Last Taken Type gabapentin 300 mg capsule 300 mg PO TID 09/21/20 11/21/23 12/01/23 History apixaban 2.5 mg tablet (Eliquis) 2.5 mg PO BID 09/09/22 11/21/23 11/28/23 History atorvastatin 80 mg tablet 80 mg PO DAILY 09/08/23 12/02/23 12/01/23 History tramadol 50 mg tablet 50 mg PO Q4H PRN Pain (Scale Score 11/06/23 11/21/23 12/01/23 History 4-6) clotrimazole-betamethasone 1 1 appl topical BID PRN Rash 11/11/23 11/21/23 Unknown History %-0.05 % topical cream miconazole nitrate 2 % topical 1 appl topical BID PRN Rash 11/11/23 11/21/23 Unknown History powder (Zeasorb AF) omeprazole 20 mg capsule,delayed 20 mg PO BID@0630,1630 11/11/23 11/21/23 12/02/23 05:00 History release lidocaine 5 % topical patch 1 patch topical DAILY 11/24/23 11/24/23 12/01/23 History tamsulosin 0.4 mg capsule 0.4 mg PO DAILY 12/02/23 12/02/23 12/01/23 History Assessment and Plan Final Anesthetic Review NPO: Yes ASA Class: III Final Preanesthetic Review: No Changes in Pt Med Stat, Meds/Allgs Chart Reviewed, Consent Obtained/Reviewed and Anes Risks/Benef Reviewed Patient Risk: Intermediate Procedure Risk: Intermediate Assessment/Block/Sedation in SS: Assess/Block/Sedation-SS Anesthetic Plan Anesthetic Plan: GA and Agree w/ Assess. and Plan Disposition: Standard PACU
[2023-11-24 15:11] LABS: MRSA Nasal PCR NEGATIVE (Negative); SA Nasal PCR NEGATIVE (Negative)
[2023-12-02] VITALS (15 sets, daily range): BP systolic 127–171; BP diastolic 59–83; PULSE 77–90; RESP 10–18; TEMP 36–36.7; O2SAT 91–98; BMI 29.7
--- NOTE | ~2023-12-02 | XR_ITS ---
EXAMINATION: XR PELVIS CLINICAL INFORMATION: Right total hip arthroplasty COMPARISON: Pelvic radiograph 06/08/2023 TECHNIQUE: AP view of the pelvis. FINDINGS: No acute fracture or dislocation. Status post right total hip arthroplasty in apparent anatomic alignment on this limited single view. No evidence of hardware fracture or complication. Expected postsurgical change with subcutaneous emphysema and soft tissue latonia. Mild osteoarthritis of the left hip unchanged. Calcified phleboliths in the pelvis. Atherosclerotic vascular calcification. XR/XR pelvis 1-2V IMPRESSION: Status post right total hip arthroplasty in apparent anatomic alignment on this limited single view. No evidence of hardware fracture or complication.
--- OUTSIDE RECORDS SUMMARY | 2023-12-02 06:00 | XMS_ITS | Continuity of Care Document ---
Author Name Unknown Organization [facility] Address [address] [place] [address]- Care Team Providers Care Building Construction Professor Name Role Phone Po Zuri KING Primary Care Physician [place] [facility] [place](s): 10/15/23 - 11/14/23 [facility] [address] [place] [address]- Allergies, Adverse Reactions, Alerts Substance Reaction Severity Status Nyquil Cold Medicine 1 rash Persistent Moderat e Active Zithromax Z-Charlie 2 rash Persistent Moderate Act elena Morphine Sulfate ADD-[place] 3 heart races Persisten t Mild Active [...] Personnel Name: Rehana Kinsey RN Position: [facility] SN RN Member Role: Primary Care Nurse Name: Nelly Liu RN Position: S RN Member Role: Primary Care Nurse Name: Stacey Quevedo RN Position: S RN Member Role: Primary Care Nurse Name: Zuri Feldman MD Position: Reference Physician Member Role: PCP Address: Address: [address] [place] [address] Name: Elvira Jefferson RN Position: [facility] Onco RN Member Role: Primary Care Nurse Care Team Related Persons Name: BRIANA HOWE Address: home [address] [place] [id number] Name: KUMAR HOWE Address: home [address] [place] [address] Name: RICARDO HOWE Address: home [address] [place] [address]
--- OUTSIDE RECORDS SUMMARY | 2023-12-02 06:00 | XMS_ITS | Continuity of Care Document ---
Author Name Unknown Organization [facility] Address [address] [place] [address]- Care Team Providers Care Office Admin Name Role Phone Po Zuri KING Primary Care Physician [place] [facility] [place] 10/22/23 - 11/21/23 [facility] [address] [place] [address]- Allergies, Adverse Reactions, Alerts Substance Reaction Severity Status Nyquil Cold Medicine 1 rash Persistent Moderat e Active Zithromax Z-Charlie 2 rash Persistent Moderate Act elena Morphine Sulfate ADD-[place] 3 heart races Persisten t Mild [...] Physician Member Role: PCP Address: Address: [address] [place] [address] Name: Elvira Jefferson RN Position: [facility] Onco RN Member Role: Primary Care Nurse Care Team Related Persons Name: BRIANA HOWE Address: home [address] [place] [address] Name: KUMAR HOWE Address: home [address] [place] [address] Name: RICARDO HOWE Address: home [address] [place] [address]
--- OUTSIDE RECORDS SUMMARY | 2023-12-02 06:03 | XMS_ITS | Continuity of Care Document ---
Author Name Unknown Organization [facility] Address [address] [place] [address]- Care Team Providers Care Communications Planner Name Role Phone Zuri Feldman MD Primary Care Physician [phone] Encounter [facility] [place] Date(s): 11/06/23 - 11/13/23 [facility] [address], [place] [address] Attending Physician: Sharon KING, Salbador Gurrola Admitting Physician: Salbador Herrera MD Referring Physician: Zuri Feldman MD Allergies, Adverse Reactions, Alerts Substance Reaction Severity Status Nyquil Cold Medicine 1 rash Persistent Moderat e Active Zithromax Z-Charlie 2 rash Persistent Moderate Act elena Morphine Sulfate ADD-[place] 3 heart races Persisten t Mild Active [...] oldest [Reference Range]: 1 Height 173 cm (11/06/23 2:14 PM) Weight 82 kg (11/06/23 2:14 PM) Pulse Rate [55-90 bpm] 70 bpm (11/06/23 2:14 PM) Body Mass Index [18.5-24.99 kg/m2] 27.4 kg/m2 *H* (11/06/23 2:14 PM) Blood Pressure [90-138/55-84 mm Hg] 110/ 60mm Hg (11/06/23 2:14 PM) Blood pressure sites Arm, right (11/06/23 2:14 PM) Weight Obtained Via Patient/family state d (11/06/23 2:14 PM) Social History Social History Type Response Smoking Status Former smoker; Other : quit nov 2017; entered on: 03/13/18 Sex Note * Deerje Khan: PERFORM, SIGN, VERIFY Event Display: Patient Education/Instruction Authored Date: [id number] [facility] *[facility] [address] Clinical Summary Name TRACIE HOWE Age 63 Years 1960 PCP Zuri Feldman MD PCP Visit Date 11/06/2023 13:28:00 Additional Instructions: Scheduled Appointments?? Future Appointments ?No Future Appointments Scheduled Follow-Up Instructions ?? With: Address: When: Sharon KING, Salbador Gurrola Comments: re-do left carotid subclavian bypass once recovered from hip replacement surgery Diagnosis Medications: Please continue your medications until [...] A DAY. Refills: 0. Next Dose: Oxycodone (oxyCODONE 5 mg oral tablet) 1 tab(s) Oral every 6 hours as needed as needed for pain. needs to wean and supplement with tyelenol. Refills: 0. Next Dose: Pantoprazole (pantoprazole 40 mg oral delayed release tablet) 40 Milligram Oral Daily for 30 Days. Refills: 0. Next Dose: Tamsulosin (tamsulosin 0.4 mg oral capsule) 1 capsule Oral Daily in the morning. Next Dose: Tramadol (traMADol 50 mg oral tablet) 1 tab(s) Oral every 4 hours as needed for pain. Refills: 3. Next Dose: Varenicline (varenicline 1mg tablet) 1 tab(s) Oral twice a day. Next Dose: Allergy Info:?? Morphine Sulfate ADD-[place]; Zithromax Z-Charlie; Nyquil Cold Medicine Medications Given This Visit Future Orders ?No future orders Vital Signs Height 173 cm Weight 82 kg BMI 27.4 kg/m2 Blood Pressure 110 mm Hg/60 mm Hg Temperature Pulse Rate 70 bpm Respiratory Rate 02 Sat Mode of Delivery / You can now view a summary of your hospital visit from the comfort of your home through a free online portal called [employer]. [employer] is a website that allows you to securely view your medical information including discharge summary, medications and follow-up visits. ??You can alsosend a secure electronic message to your doctor???s office to request appointments, renew medications or just ask a question. You can enroll at [email or web address] or register during your next office visit. [...] primary care provider, you may find a [facility] provider by calling [facility] [employer] Link at [phone]. [facility], in keeping with [facility] guidance, no longer requires face masks for [...] Reference Physician Member Role: PCP Address: Address: [address] [place] [address] Name: Elvira Jefferson RN Position: [facility] Onco RN Member Role: Primary Care Nurse Care Team Related Persons Name: BRIANA HOWE Address: home [address] [place] [address] Name: KUMAR HOWE Address: home [address] [place] [address] Name: RICARDO HOWE Address: home [address] [place] [address]
--- OUTSIDE RECORDS SUMMARY | 2023-12-02 06:03 | XMS_ITS | Continuity of Care Document ---
Author Name Unknown Organization [facility] Address [address] [place] [address]- Care Team Providers Care Head Packager Name Role Phone Po Zuri KING Primary Care Physician [phone] En[place] [facility] [place]s): 10/24/23 - 11/23/23 [facility] [address] [place] [address]- Allergies, Adverse Reactions, Alerts Substance Reaction Severity Status Nyquil Cold Medicine 1 rash Persistent Moderat e Active Zithromax Z-Charlie 2 rash Persistent Moderate Act elena Morphine Sulfate ADD-[place] 3 heart races Persisten t Mild Active [...] Team Personnel Name: Rehana Kinsey RN Position: [facility] SN RN Member Role: Primary Care Nurse Name: Nelly Liu RN Position: S RN Member Role: Primary Care Nurse Name: Stacey Quevedo RN Position: S RN Member Role: Primary Care Nurse Name: Zuri Feldman MD Position: Reference Physician Member Role: PCP Address: Address: [address] [place] [address] Name: Elvira Jefferson RN Position: [facility] Onco RN Member Role: Primary Care Nurse Care Team Related Persons Name: BRIANA HOWE Address: home [address] [place] [address] Name: KUMAR HOWE Address: home [address] [place] [address] Name: RICARDO HOWE Address: home [address] [place] [address]
[2023-12-02] MEDS: oxyCODONE HCl ER 10 MG TAB.ER.12H PO ×2 (06:24→20:27)
[2023-12-02] MEDS: Lactated Ringers 1,000 ML 100 ML IVCONT ×2 (06:56→19:29)
--- NOTE | 2023-12-02 07:27 | MHC.SHP ---
Pre-Procedural Eval Section A - 24 Hr Update-Section A only Date of Service: 12/02/23 The patient is an INPATIENT: No Changes since office visit: No Cold of Flu in the past 2 weeks, No New Medical Problems, No Changes in Medication and No Patient answered all questions The patient has been examined within 24 hours of the surgical procedure. The History & Physical has been completed within 30 days and I have reviewed it.: Yes Section B - Complete if H&P > 30 days Chief Complaint: Unilateral primary osteoarthritis, right hip Allergies: Allergies Allergy/AdvReac Type Severity Reaction Status Date / Time morphine [MORPHINE] Allergy Intermediate TACHYCARDIA Verified 11/21/23 14:24 dextromethorphan Allergy Unknown HIVES Verified 11/12/23 14:28 [From NYQUIL] divalproex sodium [Depakote] Allergy Unknown Unknown Verified 11/12/23 14:28 doxylamine [From NYQUIL] Allergy Unknown HIVES Verified 11/12/23 14:28 pseudoephedrine Allergy Unknown HIVES Verified 11/12/23 14:28 [From DAYQUIL SINUS PRESSURE/PAIN] rosuvastatin Allergy Unknown SOB Verified 11/21/23 14:24 Plan I have reviewed the history and physical and performed a pertinent physical examination on my patient. No changes have occurred unless specified. Time Spent With Patient Time: Total time managing care of this patient today ____ minutes.
--- NOTE | 2023-12-02 08:13 | PHA.MEDREC ---
Pharmacy Consult ? Medication Reconciliation Pharmacy has reviewed the medication reconciliation done by RN. However, there is no claim history for 5% patch. Suspect patient could be taking 4% over the counter.
--- NOTE | 2023-12-02 09:34 | P.BOP_ITS ---
Brief Operative Note Date of Service: 12/02/23 Pre-op diagnosis: Right hip OA Post-op diagnosis: same Procedure: Right CHUYITA Implants: Teofilo Trident2 52/lipped liner; Accolade2 #7 127/ +2.5 36 ceramic Surgeon: Raheel Mobley MD Anesthesia: GETA and local Was an Woodworking Machine Offbearer used for this Procedure?: Yes Woodworking Machine Offbearer: Nicole Simmons Estimated blood loss (mL): 150 IV fluids (mL): 1,000 Pathology: other Condition: stable Disposition: PACU
[2023-12-02] MEDS: oxyCODONE HCl Immed Release 5 MG TABLET PO ×3 (10:24→19:47)
[2023-12-02] MEDS: HYDROmorphone HCl 0.5 MG/0.5 ML SYRINGE 0.25 MG IVPUSH ×2 (12:46→18:07)
--- NOTE | 2023-12-02 13:25 | P.CONHOSP_ITS ---
History of Present Illness Data of Consult Service Date: 12/02/23 Requesting physician: Nicole Simmons Primary Care Provider: Zuri Feldman MD HPI Reason for consult: medical management 63 slick old male with history of copd, bph, pulmonary nodule, hld, vitamin d deficiency, hx cerebral aneurysm s/p percutaeous endovascular procedure, CVA, left subclavian artery occlusion s/p bypass on eliquis, hx seizure disorder, hx polysubstance abuse who is a current 4 cigarette per day smoker admitted to orthopedic surgery for OA R hip s/p CHUYITA with consult placed to hospitalist service for medical management. he is reporting 6/10 pain in the hip. States he has cut back to 4 cigarettes per day, down from 2PPD, and is trying to quit. Is experiencing nicotine cravings. Denies recent etoh or drug use, except for occasional MJ use. Review of Systems Review of Systems: General: No fevers, malaise, unintentional weight loss HEENT: No blurred vision, diplopia. No sore throat, nasal congestion, rhinorrhea, sinus pain, ear pain Cardiovascular: No chest pain, palpitations, or leg edema Respiratory: No shortness of breath, wheezing, cough GI: No abdominal pain, nausea, vomiting, diarrhea, constipation, melena, hematochezia : No dysuria, hematuria, increased urinary frequency, decreased urinary output MSK: No myalgia, back pain. +R hip pain Neuro: No headaches, weakness, paresthesias Skin: No rashes or lesions [facility] Medical History Arthritis Abdominal hernia Numbness Cough Habitual snoring Atelectasis of left lung COPD (chronic obstructive pulmonary disease) Smoker Tinea cruris Pes anserinus bursitis of left knee Upper respiratory tract infection Rib fractures Annual physical exam Contusion of chest Back strain Osteoarthritis of right hip Right hip pain Right middle lobe pulmonary infiltrate SOB (shortness of breath) Sinus congestion Overweight (BMI 25.0-29.9) Urgency of micturition Carpal tunnel syndrome Femoral fracture Pulmonary nodule BPH (benign prostatic hyperplasia) Seizure disorder Insomnia Vitamin D deficiency Impaired glucose tolerance Hypercholesterolemia Anxiety GERD (gastroesophageal reflux disease) Polysubstance abuse Left subclavian artery occlusion Brain aneurysm CVA (cerebral vascular accident) Vocal cord polyp Vitamin B12 deficiency Family History Father CAD (coronary artery disease) Kidney malignancy Mother Myocardial infarction Brother Prostate cancer Surgical History History of nasal surgery H/O colonoscopy Stenosis of subclavian bypass History of surgery History of orthopedic surgery History of knee replacement procedure of right knee Social History Household Members: Other Household Members Other:: roomate Housing: Other Housing Other:: trailer Are you a primary critical care nurse to a significant other at home: No Do you presently have visiting nurse 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) Alcohol intake: current Alcohol intake frequency: 0-2 drinks per day Alcohol type: beer Patient Tobacco Use Status: Current everyday Tobacco user Tobacco use type: Cigarette Cigarettes Per Day: 4 Years Smoked: 50 Smoked in Last 30 Days: Yes e-Cigarette/Vaping Use: Never Used Patient Interested in Nicotine Replacement: Yes Patient Given Instructions on How to Stop Smoking: Yes Date Education Initiated: 11/24/23 Second Hand Smoke Exposure: Yes Use of substances other than those prescribed or required for medical reasons: Yes Substance Use Type: Marijuana Substance Use Frequency: Occasionally Last Used Substance: Unknown Currently Displaying Signs/Symptoms of Drug Intoxication Withdrawal: No Have you been hit, kicked, punched, or otherwise hurt by someone within the past year? If so, by whom?: No Do you feel safe in your current relationship?: No Is there a partner from a previous relationship who is making you feel unsafe now?: No Are you made to feel afraid or neglected: No Are you DNR?: No Advance Directives: No Advance Directives Information Provided: Yes Advance Directives on File: No Do you have thoughts of harming others: None Do you have a plan to hurt others: No Plan Recently lost weight without trying: No How much weight loss: Not applicable Eating poorly because of decreased appetite: No Nutrition screen score: 0 Nutrition Risks: No Nutritional Risk Poor oral hygiene: No service: No Current occupational status: unemployed Cognitive needs: No Hearing needs: No Vision needs: Yes Meds Allergies Allergy/AdvReac Type Severity Reaction Status Date / Time morphine [MORPHINE] Allergy Intermediate TACHYCARDIA Verified 11/21/23 14:24 dextromethorphan Allergy Unknown HIVES Verified 11/12/23 14:28 [From NYQUIL] divalproex sodium [Depakote] Allergy Unknown Unknown Verified 11/12/23 14:28 doxylamine [From NYQUIL] Allergy Unknown HIVES Verified 11/12/23 14:28 pseudoephedrine Allergy Unknown HIVES Verified 11/12/23 14:28 [From DAYQUIL SINUS PRESSURE/PAIN] rosuvastatin Allergy Unknown SOB Verified 11/21/23 14:24 Active Medications: Current Medications Acetaminophen (Acetaminophen 325 Mg Tablet) 650 mg PO Q6H PRN PRN Reason: Pain, Mild (Pain Scale 1-3) Albuterol Sulfate (Albuterol Sulfate (0.083%) 2.5 Mg/3 Ml Vial.Neb) 2.5 mg INHALE QID PRN PRN Reason: shortness of breath or wheezing Albuterol Sulfate (Albuterol Sulfate 90 Mcg 8 Gm Inhaler) 2 puff INHALE Q6H PRN PRN Reason: bronchospasm Celecoxib (Celecoxib 200 Mg Capsule) 200 mg PO BID [place] Docusate Sodium (Docusate Sodium 100 Mg Capsule) 100 mg PO BID [facility] Enoxaparin Sodium (Enoxaparin Sodium 40 Mg/0.4 Ml Syringe) 40 mg SUBCUT Q24H [facility] Fluticasone Propionate (Fluticasone Propionate Nasal 16 Gm [place]) 2 spray NOSTRIL-B DAILY [facility] Fluticasone/Vilanterol (Fluticasone/Vilanterol 100/25 Blst.W.Dev) 1 puff INHALE RDAILY [facility] Gabapentin (Gabapentin 300 Mg Capsule) 300 mg PO TID [place] Hydromorphone HCl (Hydromorphone Hcl 0.5 Mg/0.5 Ml Syringe) 0.25 mg IVPUSH Q4H PRN; Protocol PRN Reason: Pain, Severe (Pain Scale 7-10) Last Admin: 12/02/23 12:46 Dose: 0.25 mg Cefazolin Sodium/Dextrose (Ancef) 2 gm in 50 mls @ 100 mls/hr IV POSTOP ONE Stop: 12/02/23 14:29 Omeprazole (Omeprazole 20 Mg Capsule.Dr) 20 mg PO BID@0630,1630 [place] Ondansetron HCl (Ondansetron Hcl 4 Mg/2 Ml Vial) 4 mg IVPUSH Q8H PRN PRN Reason: Nausea and Vomiting Oxycodone HCl (Oxycodone Hcl Immed Release 5 Mg Tablet) 5 mg PO Q4H PRN PRN Reason: Pain, Moderate(Pain Scale 4-6) Oxycodone HCl (Oxycodone Hcl Er 10 Mg Tab.Er.12h) 10 mg PO BID [facility] Sodium Chloride (0.9 % Sodium Chloride Flush 3 Ml Syringe) 3 ml IVFLUSH QSHIFT [facility] Tamsulosin HCl (Tamsulosin Hcl 0.4 Mg Capsule) 0.4 mg PO DAILY [facility] Home Medications Medication Instructions Recorded Confirmed Last Taken Type gabapentin 300 mg capsule 300 mg PO TID 09/21/20 11/21/23 12/01/23 History apixaban 2.5 mg tablet (Eliquis) 2.5 mg PO BID 09/09/22 11/21/23 11/28/23 History atorvastatin 80 mg tablet 80 mg PO DAILY 09/08/23 12/02/23 12/01/23 History tramadol 50 mg tablet 50 mg PO Q4H PRN Pain (Scale Score 11/06/23 11/21/23 12/01/23 History 4-6) clotrimazole-betamethasone 1 1 appl topical BID PRN Rash 11/11/23 11/21/23 Unknown History %-0.05 % topical cream miconazole nitrate 2 % topical 1 appl topical BID PRN Rash 11/11/23 11/21/23 Unknown History powder (Zeasorb AF) omeprazole 20 mg capsule,delayed 20 mg PO BID@0630,1630 11/11/23 11/21/23 12/02/23 05:00 History release lidocaine 5 % topical patch 1 patch topical DAILY 11/24/23 11/24/23 12/01/23 History tamsulosin 0.4 mg capsule 0.4 mg PO DAILY 12/02/23 12/02/23 12/01/23 History Physical Exam Vital Signs and Narrative: Vital Signs: Last Vital Signs Temp 96.8 F 12/02/23 12:22 Pulse 85 12/02/23 12:22 Resp 18 12/02/23 12:22 BP 128/64 12/02/23 12:22 Pulse Ox 91 L 12/02/23 12:22 O2 Del Method Room Air 12/02/23 12:22 O2 Flow Rate 3 12/02/23 10:30 BMI result Body Mass Index 29.7 Constitutional - Awake and Alert, No apparent distress Eyes - PERRLA, EOMI Cardiovascular - S1S2, RRR, No edema Respiratory - Normal lung expansion, Normal respiratory effort, No respiratory distress, CTA bilaterally Gastrointestinal - NT / ND; +BS; No rebound or guarding Extremities - no calf tenderness bilaterally, no swelling Skin - Warm/Dry Neurological - Alert & oriented x3 Psychological - Appropriate affect Assessment and Plan (1) Osteoarthritis of right hip: Qualifiers: Osteoarthritis type: primary Qualified Code(s): M16.11 - Unilateral primary osteoarthritis, right hip Status: Acute Plan 63 year old male with history of copd, bph, pulmonary nodule, hld, vitamin d deficiency, hx cerebral aneurysm s/p percutaeous endovascular procedure, CVA, left subclavian artery occlusion s/p bypass on eliquis, hx seizure disorder, hx polysubstance abuse who is a current 4 cigarette per day smoker admitted to orthopedic surgery for OA R hip s/p CHUYITA with consult placed to hospitalist service for medical management. #OA R Hip s/p CHUYITA POD 0 -plan per ortho surgery #COPD -no acute exacerbation, no acute hypoxia -continue maintenance inhalers, albuterol prn #PAD -h/o left subclavian artery occlusion -On lovenox 40mg BID per orthosurgery. Change to eliquis at recommendation of ortho surgery #HLD -statin #BPH -flomax #Cigarette smoking -cessation encouraged -continue chantix if available on formulary -nicorette prn Thank you for allowing me to participate in this consult. Signing off at this time. Please do not hesitate to call for further questions or for any acute medical issues
[2023-12-02] MEDS: ceFAZolin Sodium/Dextrose,Iso 2 GM/50 ML PIGGYBACK IV (13:55)
[2023-12-02] MEDS: Gabapentin 300 MG CAPSULE PO ×2 (14:29→20:27)
[2023-12-02] MEDS: 0.9 % Sodium Chloride Flush 3 ML SYRINGE IVFLUSH (15:10)
[2023-12-02] MEDS: Omeprazole 20 MG CAPSULE.DR PO (15:10)
[2023-12-02] MEDS: Acetaminophen 325 MG TABLET 650 MG PO (15:23)
[2023-12-02] MEDS: Nicotine Polacrilex 2 MG GUM BUCCAL ×2 (18:13→20:28)
--- NOTE | 2023-12-02 20:05 | PC.NURSE ---
Patient voided ,unable to use urinal,bladder scanned by TODD Nazario for 28 ml,[id number]
[2023-12-02] MEDS: Celecoxib 200 MG CAPSULE PO (20:27)
[2023-12-02] MEDS: Docusate Sodium 100 MG CAPSULE PO (20:27)
[2023-12-02] MEDS: Albuterol Sulfate 90 MCG 8 GM INHALER 2 PUFF INHALE (20:41)
[2023-12-03] MEDS: HYDROmorphone HCl 0.5 MG/0.5 ML SYRINGE 0.25 MG IVPUSH (00:30)
[2023-12-03 01:00] VITALS: RESP 18
[2023-12-03] MEDS: oxyCODONE HCl Immed Release 5 MG TABLET PO ×3 (02:01→10:49)
[2023-12-03 03:01] VITALS: RESP 18
[2023-12-03 03:16] VITALS: BP 113/57; PULSE 85; RESP 18; TEMP 36.7; O2SAT 91
[2023-12-03] MEDS: Lactated Ringers 1,000 ML 100 ML IVCONT (05:37)
[2023-12-03] MEDS: Omeprazole 20 MG CAPSULE.DR PO (05:48)
[2023-12-03 07:45] LABS: Basophils Percent Auto 0.1 % (0-2); Hemoglobin 11.9 g/dl (14.0-18.0); Imm Gran Abs Auto 0.06 X10*3/uL (0.00-0.03); Imm Gran Pct Auto 0.4 % (0.0-0.4); Lymphocytes Absolute Auto 1.1 X10*3/uL (1.2-4.9); Lymphocytes Percent Auto 8.2 % (20-40); MANUAL DIFF FLAG SCAN; Mean Corpuscular Hemoglobin 33.1 pg (27.0-33.0); Mean Corpuscular Volume 94.7 fL (80.0-98.0); Mean Platelet Volume 10.4 fL (9.4-12.4); Monocytes Absolute Auto 1.8 X10*3/uL (0.1-1.2); Monocytes Percent Auto 12.8 % (2-11); Neutrophils Percent Auto 78.5 % (45-73); Platelet Count 200 X10*3/uL (160-400); Red Blood Count 3.59 X10*6/uL (4.60-5.80); Red Cell Distribution Width 13.9 % (11.0-16.0); SCAN SMEAR FLAG 1
[2023-12-03 07:58] LABS: Anion Gap 12 (12-20); Blood Urea Nitrogen 11 mg/dL (9-16); Calcium 8.2 mg/dL (8.4-10.2); Carbon Dioxide 24 mmol/L (22-29); Chloride 108 mmol/L (96-108); Creatinine Clr Calc Pharmacy 115.5; Estimated Glomerular Filt Rate > 60; Glucose Fasting 113 mg/dL (60-99); Potassium 4.3 mmol/L (3.3-5.1); Sodium 140 mmol/L (135-145)
--- NOTE | 2023-12-03 07:58 | W.PM.OPN ---
Operative Note Operative Note Date of Service: 12/02/23 Narrative: Date of Service: 12/02/23 Pre-op diagnosis: Right hip OA Post-op diagnosis: same Procedure: Right CHUYITA Implants: Custer Trident2 52/lipped liner; Accolade2 #7 127/ +2.5 36 ceramic Surgeon: Raheel Mobley MD Anesthesia: GETA and local Was an Ribbon Blocker used for this Procedure?: Yes Ribbon Blocker: Nicole Simmons Estimated blood loss (mL): 150 IV fluids (mL): 1,000 Pathology: other Condition: stable Disposition: PACU Procedure in detail: Patient was brought into the operating room and placed in the right lateral decubitus position. All bony prominences were well padded and the limb was prepped and draped in standard sterile fashion. A time-out was called to identify proper site procedure proper surgeon IV antibiotics. I began by making a curvilinear incision over the posterolateral aspect of the greater trochanter. Dissection was taken down to the tensor fascia which was incised in line with the incision and a Charnley retractor was placed. Cautery was used to maintain hemostasis. The hip was internally rotated and the external rotators were identified. The vessels were cauterized and a full-thickness capsular/external rotator layer was developed starting just proximal to the piriformis. This layer was tagged and a dull Hohmann retractor was placed underneath the neck in the hip was dislocated. A neck cut was made 1 cm proximal to the lesser trochanter and the head and neck were removed and measured 48-50mm on the back table. I then removed the labrum and cauterized the fovea. I started with a 44 reamer and medialized to the inner table. I sequentially reamed up to a size 52 and impacted a 52mm cup at 45 degrees of inclination and 25 degrees of version. I then placed a 20 deg posterior lipped liner and turned my attention to the femur. I identified the piriformis insertion and used this as a starting point for my mildred cutter. The medius tendon was protected with a Hibs retractor. A Charnley awl was inserted in the canal and a curved curette used to remove the lateral bone. I irrigated copiously. I then sequentially broached in the patient's natural version to a size 7 and placed my trial implants. I used a #5/127/+2.5 based on my pre-operative template. Using a trail head I took the hip through range of motion. I was satisfied with the stability and length. I removed all instrumentation and copiously irrigated. I placed my final femoral implant and again took the hip through range of motion and was satisfied with the stability and length. The final 2.5 implant was impacted in place and the hip reduced. A Werewolf cautery wand was used to maintain hemostasis. I then irrigated copiously. I performed a capsular closure with 2.0 fiberwire, Piero's fascia with 0 Vicryl, subcuticular with 2-0 Vicryl and the skin with latonia. Patient was placed into a sterile dressing. Patient was extubated brought to the recovery room in stable condition. There were no known complications.
[2023-12-03] MEDS: Enoxaparin Sodium 40 MG/0.4 ML SYRINGE SUBCUT (07:59)
[2023-12-03 08:00] VITALS: BP 151/67; PULSE 79; RESP 18; TEMP 36.3; O2SAT 92
[2023-12-03] MEDS: Celecoxib 200 MG CAPSULE PO (08:00)
[2023-12-03] MEDS: Tamsulosin HCL 0.4 MG CAPSULE PO (08:00)
[2023-12-03] MEDS: Docusate Sodium 100 MG CAPSULE PO (08:00)
[2023-12-03] MEDS: Gabapentin 300 MG CAPSULE PO (08:00)
[2023-12-03] MEDS: oxyCODONE HCl ER 10 MG TAB.ER.12H PO (08:00)
[2023-12-03] MEDS: Fluticasone Propionate Nasal 16 GM SPRAY 2 SPRAY NOSTRIL-B (08:01)
--- NOTE | 2023-12-03 08:25 | P.PNOP_ITS ---
Subjective Subjective Date of Service: 12/03/23 Interval history: POD 1 s/p RT CHUYITA No overnight events resting in bed, states he has been out of bed and walking denies cp, palpitations, sob Physical Exam Vital Signs: Vital Signs: Last Vital Signs Temp 97.3 F 12/03/23 08:00 Pulse 79 12/03/23 08:00 Resp 18 12/03/23 08:00 BP 151/67 H 12/03/23 08:00 Pulse Ox 92 12/03/23 08:00 O2 Del Method Room Air 12/03/23 08:00 O2 Flow Rate 3 12/02/23 10:30 BMI result Body Mass Index 29.7 Const: General: cooperative, healthy appearing and no acute distress Resp: Effort & Inspection: normal respiratory effort and able to speak in complete sentences Cardio: Rate: regular rate Peripheral pulses: Peripheral pulses 2+ throughout GI: Palpation (GI): Soft to palpation Skin: General skin exam: no rashes or lesions noted Extrem: Other: bandage intact. Domingo intact. No erythema or effusion. Calf supple nontender. Neurovascularly intact. Procedures Date of Service Date of Service: 12/03/23 Progress Note: A&P Assessment and plan (1) History of total right hip replacement: Status: Acute Assessment and Plan: * Continue pain mgmnt * Begin lovenox for dvt ppx--resume eliquis after 48 hrs * begin PT /OT for RT CHUYITA posterior precautions * Dispo planning-Pending PT eval, pain mgmnt Need for continued inpatient stay: pt eval Time Spent With Patient Time: Total time managing care of this patient today ____ minutes. Quality Stroke Does the patient have a stroke diagnosis?: No VTE Prior VTE?: No VTE Risk Level:: Surgical - very high VTE Device Contraindication: N/A - Device Ordered VTE Drug Contraindication: N/A - Med Ordered
[2023-12-03] MEDS: Fluticasone/Vilanterol 100/25 BLST.W.DEV 1 PUFF INHALE (08:37)
[2023-12-03 08:38] VITALS: PULSE 83; RESP 16; O2SAT 93
[2023-12-03 08:52] LABS: SLIDE REVIEW VERIFIED
--- NOTE | 2023-12-03 09:29 | MHC.CM.PN ---
pt lives with a roommate may need a ride home pt receommends home with dionna jean plan home w/vna
[2023-12-03] MEDS: Acetaminophen 325 MG TABLET 650 MG PO (10:49)
--- NOTE | 2023-12-03 12:27 | PM.DS ---
DS: Providers Provider Date of Service: 12/03/23 Date of admission: 12/02/23 05:56 Primary care physician: Zuri Feldman MD Consults: 12/02/23 11:02 Consult to Hospitalist Routine Comment: Consulting Provider: Hospitalist Reason For Exam: h/o CAD /stenosis/copd DS: Diagnosis Discharge Diagnosis (1) History of total right hip replacement: Status: Acute DS: Summary Hospital Course Hospital Course: The patient underwent a successful right total hip arthroplasty on 12/02/23 , was transferred to PACU and then to the floor to recover. During their stay, their vitals were stable, afebrile at . Labs were unremarkable, H/H 11.9/34.0. POD 1 he was started on Lovenox a day for DVT ppx, they also received Physical Therapy and Occupational therapy services twice a day. Physical therapy and Occupational should include gait training, core and lumbar strength, glute strength. Posterior precautions intact. WBAT. The Aquacel dressing should remain intact and dry at all times. Any concerns with the dressing, please contact orthopedic office. No showering. The plan is to be discharged home with vna Time Attestation Discharge coordination time: Less than 30 minutes Quality: Safe Use of Opioids Does Pt have an Active Cancer Diagnosis on the Problem List?: No Quality: Stroke Does the patient have a stroke diagnosis?: No Physical Exam Vital Signs: Vital Signs: Last Vital Signs Temp 97.3 F 12/03/23 08:00 Pulse 83 12/03/23 08:38 Resp 16 12/03/23 08:38 BP 151/67 H 12/03/23 08:00 Pulse Ox 92 12/03/23 08:00 O2 Del Method Room Air 12/03/23 08:00 O2 Flow Rate 3 12/02/23 10:30 BMI result Body Mass Index 29.7 Const: General: cooperative, healthy appearing and no acute distress Resp: Effort & Inspection: normal respiratory effort and able to speak in complete sentences Cardio: Rate: regular rate Peripheral pulses: Peripheral pulses 2+ throughout GI: Palpation (GI): Soft to palpation Skin: General skin exam: no rashes or lesions noted Extrem: Other: bandage intact. Domingo intact. No erythema or effusion. Calf supple nontender. Neurovascularly intact. DS: Data Data Completed and Pending Pending studies at discharge: Pending at discharge 12/02/23 09:08 Surgical [PTH] Routine Labs on day of discharge: Laboratory Results - last 24 hr 12/03/23 05:47 WBC 14.0 H RBC 3.59 L D Hgb 11.9 L D Hct 34.0 L D MCV 94.7 MCH 33.1 H MCHC 35.0 RDW 13.9 Plt Count 200 MPV 10.4 Immature Gran % (Auto) 0.4 Neut % (Auto) 78.5 H Lymph % (Auto) 8.2 L Creek % (Auto) 12.8 H Eos % (Auto) 0.0 Baso % (Auto) 0.1 Lymph # (Auto) 1.1 L [place] # (Auto) 1.8 H Eos # (Auto) 0.0 Baso # (Auto) 0.0 Abs Immat Gran (auto) 0.06 H Absolute Neuts (auto) 11.0 H Absolute Nucleated RBC 0.000 Nucleated RBC % (auto) 0.0 Smear Tech's Comments VERIFIED Sodium 140 Potassium 4.3 Chloride 108 Carbon Dioxide 24 Anion Gap 12 BUN 11 Creatinine 0.69 Estim Creat Clear Calc 115.5 Estimated GFR > 60 Fasting Glucose 113 H Calcium 8.2 L D Discharge Plan Discharge Anticipated Discharge Date/Time: 12/03/23 12:15 Patient Disposition: Home Health Service Discharge Diagnosis: s/p RT CHUYITA Referrals: Nicole Simmons PA-C [Physician Customer Service Coordinator] - 2 Weeks (12/18/23 13:00 [facility] Nicole Simmons PA-C) Discharge Medications: New enoxaparin 40 mg/0.4 mL Syringe 40 mg subcut Q24H 1 Days Qty: 0.4 0RF acetaminophen 325 mg Tablet 650 mg PO Q6H PRN (Reason: Pain, Mild (Pain Scale 1-3)) 30 Days Qty: 240 0RF celecoxib 200 mg Capsule 200 mg PO BID 30 Days Qty: 60 0RF docusate sodium 100 mg Capsule 100 mg PO BID 7 Days Qty: 14 0RF oxycodone 5 mg Tablet 5 mg PO Q4H PRN (Reason: Pain, Moderate(Pain Scale 4-6)) 7 Days Qty: 42 0RF Rx Instructions: Partial Fill upon patient request. Continued (DME) shower chair See Rx Instructions .Route .MEDSUPPLY Qty: 1 0RF Rx Instructions: As directed albuterol sulfate 2.5 mg /3 mL (0.083 %) solution for nebulization 2.5 mg inhalation QID PRN (Reason: shortness of breath or wheezing) 30 Days Qty: 180 1RF fluticasone propion-salmeterol [Wixela Inhub] 250-50 mcg/dose blister with device 1 inh inhalation BID 30 Days Qty: 60 11RF fluticasone propionate 50 mcg/actuation spray,suspension 2 spray intranasal DAILY Qty: 3 3RF Rx Instructions: administer into each nostril (DME) WALKER See Rx Instructions .Route .MEDSUPPLY Qty: 1 0RF Rx Instructions: As directed varenicline [Chantix Continuing Month Box] 1 mg tablet 1 mg PO BID Qty: 56 1RF atorvastatin 80 mg tablet 80 mg PO DAILY miconazole nitrate [Zeasorb AF] 2 % powder 1 appl topical BID PRN (Reason: Rash) clotrimazole-betamethasone 1-0.05 % cream 1 appl topical BID PRN (Reason: Rash) omeprazole 20 mg capsule,delayed release(DR/EC) 20 mg PO BID@0630,1630 lidocaine 5 % Adhesive Patch,Medicated 1 patch TOPICAL DAILY Rx Instructions: leave on most painful area for up to 12 hrs tamsulosin 0.4 mg capsule 0.4 mg PO DAILY gabapentin 300 mg capsule 300 mg PO TID albuterol sulfate 90 mcg/actuation HFA aerosol inhaler 2 puff PO Q6H PRN (Reason: bronchospasm) Qty: 8.5 3RF Held Eliquis 2.5 mg tablet 2.5 mg PO BID Hold Instructions: Resume on 12/05/23. Discontinued meloxicam 15 mg tablet 15 mg PO DAILY Qty: 20 0RF tramadol 50 mg tablet 50 mg PO Q4H PRN (Reason: Pain (Scale Score 4-6)) Discharge Orders: Discharge Order (Routine); Ordered 12/03/23 Ordered By: Nicole Simmons Diet: Regular diet Activity on Discharge: Use cane or walker Stand Alone Forms: Patient Portal Discharge page Care Plan Goals: Restore function of joint Health Concerns: none Plan of Treatment: Physical Therapy Pain management DVT prophylaxis Assessment: Physical Therapy for Total hip arthroplasty: wbat, posterior precautions, gait training, ROM, strength Limit stair climbing No showering, no tub bath-keep dressing clean, dry and intact No driving x6 weeks Continue lovenox one more dose and resume eliquis tomorrow Follow up with [facility] in 2 weeks
--- NOTE | 2023-12-03 12:29 | P.F2F_ITS ---
Service Date Service Date: 12/03/23 Encounter Date of encounter: 12/03/23 Reasons for Services Signs and symptoms assessed: Weakness, poor balance, poor gait mechanics Reason for physical therapy: home safety and mobility, therapeutic exercises, restore joint function, gait/transfer training, ADL training and energy conservation Reason for occupational therapy: home safety and mobility, therapeutic exercises, restore joint function, gait/transfer training, ADL training and energy conservation Homebound: Leaving the home is medically contraindicated at this time without the asist of a device and/or another person due th the listed conditions above and below. Reason homebound: unsteady gait / fall risk, pain with ambulation, poor balance / fall risk and unable to drive Homebound supporting statement: Pt. is considered home bound due to recent surgery. Unable to drive, poor balance, poor gait mechanics. Certification: Based on the above findings, I certify that this patient is confined to the home and needs intermittent senior care care, physical therapy and/or speech therapy, or continues to need occupational therapy. The patient is under my care, and I have initiated the establishment of the plan of care. The patient will be followed by a physician who will periodically review the plan of care. Time Spent With Patient Time: Total time managing care of this patient today ____ minutes.
--- NOTE | 2023-12-03 14:10 | MHC.CM.PN ---
pt dcd with jimmy self arranged transportaion
--- NOTE | 2023-12-03 17:41 | HO.POSTANES ---
Post Anesthesia Evaluation Post Anesthesia Evaluation Date of Service: 12/03/23 Vital Signs: Vital Signs Temp Pulse Resp BP Pulse Ox O2 Del Method 12/03/23 08:38 83 16 12/03/23 08:00 97.3 F 79 18 151/67 H 92 Room Air Anesthesia: General Endotracheal-GETA Mental Status: Awake Pain Control: Satisfactory Nausea/Vomiting: None Hydration: Adequate Anesthesia-Related Issues: No Anes. Related Issues
== END 2023-12-03 14:16 | disposition home health service (06) | DRG 470 ==
LOC: HO.SSSA 05:58 → HO.S3 10:57
PROVIDERS: Physician Assistant; Admitting Provider Orthopaedic Surgery; PCP Internal Medicine; Visit Provider Orthopaedic Surgery
PROC: (CPT 27130; principal; 2023-12-02 07:30)
DX: M16.11 Unilateral primary osteoarthritis, right hip (principal); J44.9 Chronic obstructive pulmonary disease, unspecified; F17.210 Nicotine dependence, cigarettes, uncomplicated; Z71.6 Tobacco abuse counseling; Z79.51 Long term (current) use of inhaled steroids; Z79.01 Long term (current) use of anticoagulants; Z79.899 Other long term (current) drug therapy
CPT/HCPCS: 27130; 36415; 72170; 80048; 85025; 86850; 86870; 86885; 86900; 86901; 86902; 86920; 86922; 87640; 87641; 88304; 88311; 94640; 94664; 97110; 97116; 97161; 97165; 97535; C1776; J0131; J0690; J1100; J1170; J1650; J2250; J2405; J2704; J2795; J3010; J7120

== ENCOUNTER → 2023-12-02 05:56 | Outpatient (BNV) | payer MEDICARE, SELFPAY | PROVIDERS: Admitting Provider Orthopaedic Surgery; PCP Internal Medicine; Visit Provider Physician Assistant | DX: M16.11 Unilateral primary osteoarthritis, right hip (principal); J44.9 Chronic obstructive pulmonary disease, unspecified; R91.1 Solitary pulmonary nodule | CPT/HCPCS: 99222 ==

== ENCOUNTER → 2023-12-02 05:56 | Outpatient (BNV) | payer MEDICARE, SELFPAY | PROVIDERS: Admitting Provider Orthopaedic Surgery; PCP Internal Medicine; Visit Provider Orthopaedic Surgery | DX: Z47.1 Aftercare following joint replacement surgery (principal); Z96.641 Presence of right artificial hip joint | CPT/HCPCS: 27130; 99024; G0180 ==

== ENCOUNTER 2023-12-10 14:35 | Outpatient (AMB) | payer MEDICARE, SELFPAY ==
--- NOTE | 2023-12-10 14:46 | MHC.OFFVIS ---
Intake Intake Visit Reasons: EP, bandage change Intake Note: Stas is a 63 year old male who presents today for a bandage change. Patient reports having pain going down his leg. He states that his pain is worse at night. Allergies morphine [MORPHINE] Allergy (Intermediate, Verified 12/10/23 14:52) TACHYCARDIA dextromethorphan [From NYQUIL] Allergy (Unknown, Verified 12/10/23 14:52) HIVES divalproex sodium [Depakote] Allergy (Unknown, Verified 12/10/23 14:52) Unknown doxylamine [From NYQUIL] Allergy (Unknown, Verified 12/10/23 14:52) HIVES pseudoephedrine [From DAYQUIL SINUS PRESSURE/PAIN] Allergy (Unknown, Verified 12/10/23 14:52) HIVES rosuvastatin Allergy (Unknown, Verified 12/10/23 14:52) SOB HPI EP, bandage change HPI Details s/p RTHA 12/02/[address] Mobley. Patient presents for a bandage change stating that it is saturated. [facility] Medical History Arthritis Abdominal hernia Numbness Cough Habitual snoring Atelectasis of left lung COPD (chronic obstructive pulmonary disease) Smoker Tinea cruris Pes anserinus bursitis of left knee Upper respiratory tract infection Rib fractures Annual physical exam Contusion of chest Back strain Osteoarthritis of right hip Right hip pain Right middle lobe pulmonary infiltrate SOB (shortness of breath) Sinus congestion Overweight (BMI 25.0-29.9) Urgency of micturition Carpal tunnel syndrome Femoral fracture Pulmonary nodule BPH (benign prostatic hyperplasia) Seizure disorder Insomnia Vitamin D deficiency Impaired glucose tolerance Hypercholesterolemia Anxiety GERD (gastroesophageal reflux disease) Polysubstance abuse Left subclavian artery occlusion Brain aneurysm CVA (cerebral vascular accident) Vocal cord polyp Vitamin B12 deficiency Surgical History History of nasal surgery H/O colonoscopy Stenosis of subclavian bypass History of surgery History of orthopedic surgery History of knee replacement procedure of right knee Family History Father CAD (coronary artery disease) Kidney malignancy Mother Myocardial infarction Brother Prostate cancer Social History Household Members: Other Household Members Other:: roomate Housing: Other Housing Other:: trailer Are you a primary home health care case manager to a significant other at home: No Do you presently have visiting nurse or other home services: 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) 75 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 older and lives alone: No Alcohol intake: current Alcohol intake frequency: 0-2 drinks per day Alcohol type: beer Patient Tobacco Use Status: Current everyday Tobacco user Tobacco use type: Cigarette Cigarettes Per Day: 4 Years Smoked: 50 e-Cigarette/Vaping Use: Never Used Second Hand Smoke Exposure: Yes Substance Use Type: Marijuana service: No Current occupational status: unemployed Cognitive needs: No Hearing needs: No Vision needs: Yes Review of Systems Const All systems reviewed & are unremarkable except as noted in HPI and below Physical Exam Const General: cooperative, healthy appearing and no acute distress Resp Effort & Inspection: normal respiratory effort and able to speak in complete sentences Cardio Rate: regular rate Peripheral pulses: Peripheral pulses 2+ throughout GI Palpation (GI): Soft to palpation Skin Lesions: no lesions Rashes: no rashes Extrem Other: Right hip Aquacel is mildly saturated. Incision site is c/d/i. Domingo are intact. No signs of infection. Diffuse ecchymosis. Assessment & Plan Assessment & Plan (1) History of total right hip replacement: Comment: November 2023 Code(s): Z96.641 - Presence of right artificial hip joint Plan: No signs of infection [place] intact Area was cleaned with chloroprep New Aquacel bandage placed He will f/u at his normally scheduled post op appt. Coding Level of Care Code Global (88074) Diagnoses History of total right hip replacement Z96.641
== END 2023-12-10 15:28 | disposition home or self-care (01) ==
PROVIDERS: PCP Internal Medicine; Visit Provider Physician Assistant
DX: Z96.641 Presence of right artificial hip joint (principal)
CPT/HCPCS: 99024

== ENCOUNTER → 2023-12-10 14:35 | Outpatient (BNVA) | payer MEDICARE, SELFPAY | PROVIDERS: PCP Internal Medicine; Visit Provider Physician Assistant | DX: Z48.01 Encounter for change or removal of surgical wound dressing (principal); Z96.641 Presence of right artificial hip joint | CPT/HCPCS: 99212 ==

== ENCOUNTER 2023-12-18 12:43 | Outpatient (AMB) | payer MEDICARE, OTHER, SELFPAY ==
--- NOTE | 2023-12-18 12:56 | A.OFFVIS_ITS ---
Intake Vital Signs 12/18/23 12:58 Height 5 ft 8 in Weight 190 lb BMI 28.9 Intake Visit Reasons: PO RT CHUYITA 12/02/23 NE Intake Note: Stas a 63 year old male presents today for a post operative right CHUYITA on 12/02/23 NE. Patient reports increased discomfort yesterday due to the weather. Current pain level is 6 out of 10. He stared at home therapy this week and will continue at home therapy twice a week. He states vascular surgeon would like to know when he will be able to have a bypass at [facility]. Allergies morphine [MORPHINE] Allergy (Intermediate, Verified 12/18/23 13:02) TACHYCARDIA dextromethorphan [From NYQUIL] Allergy (Unknown, Verified 12/18/23 13:02) HIVES divalproex sodium [Depakote] Allergy (Unknown, Verified 12/18/23 13:02) Unknown doxylamine [From NYQUIL] Allergy (Unknown, Verified 12/18/23 13:02) HIVES pseudoephedrine [From DAYQUIL SINUS PRESSURE/PAIN] Allergy (Unknown, Verified 0 12/18/23 13:02) HIVES rosuvastatin Allergy (Unknown, Verified 12/18/23 13:02) SOB HPI PO RT CHUYITA 12/02/23 NE HPI Details 63-year-old male who returns to the [facility] today for post-op right CHUYITA, 12/02/[address] Mobley. He reports he had increased discomfort yesterday due to the weather. He currently states he has pain and rates the pain as 6 on the scale of 0-10. He also c/o difficulty with lifting his leg. He is working with home therapy as instructed. He has no other concerns today. [facility] Medical History Arthritis Abdominal hernia Numbness Cough Habitual snoring Atelectasis of left lung COPD (chronic obstructive pulmonary disease) Smoker Tinea cruris Pes anserinus bursitis of left knee Upper respiratory tract infection Rib fractures Annual physical exam Contusion of chest Back strain Osteoarthritis of right hip Right hip pain Right middle lobe pulmonary infiltrate SOB (shortness of breath) Sinus congestion Overweight (BMI 25.0-29.9) Urgency of micturition Carpal tunnel syndrome Femoral fracture Pulmonary nodule BPH (benign prostatic hyperplasia) Seizure disorder Insomnia Vitamin D deficiency Impaired glucose tolerance Hypercholesterolemia Anxiety GERD (gastroesophageal reflux disease) Polysubstance abuse Left subclavian artery occlusion Brain aneurysm CVA (cerebral vascular accident) Vocal cord polyp Vitamin B12 deficiency Surgical History History of nasal surgery H/O colonoscopy Stenosis of subclavian bypass History of surgery History of orthopedic surgery History of knee replacement procedure of right knee Family History Father CAD (coronary artery disease) Kidney malignancy Mother Myocardial infarction Brother Prostate cancer Social History Household Members: Other Household Members Other:: roomate Housing: Other Housing Other:: trailer Are you a primary child care attendant school to a significant other at home: No Do you presently have visiting nurse or other home services: 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 and lives alone: No Alcohol intake: current Alcohol intake frequency: 0-2 drinks per day Alcohol type: beer Patient Tobacco Use Status: Current everyday Tobacco user Tobacco use type: Cigarette Cigarettes Per Day: 4 Years Smoked: 50 e-Cigarette/Vaping Use: Never Used Second Hand Smoke Exposure: Yes Substance Use Type: Marijuana service: No Current occupational status: unemployed Cognitive needs: No Hearing needs: No Vision needs: Yes Review of Systems Const All systems reviewed & are unremarkable except as noted in HPI and below Physical Exam Vital Signs: BMI result Body Mass Index 28.9 Extrem Other: Right hip: Incision clean, dry and intact. No erythema or drainage. He has mild discomfort with ROM and hip flexion. NVI. Assessment & Plan Assessment & Plan (1) History of total right hip replacement: Comment: November 2023 Code(s): Z96.641 - Presence of right artificial hip joint Plan Domingo removed, steri strips applied. He will begin to transition to Outpatient PT to continue working on Gait training, ROM and quad strength. No driving for another 4 weeks. He will require ppx abx for dental procedures. He will f/u in 4 weeks, sooner if needed. Patient Instructions: Scribed for Nicole Simmons PA-C, by Dwayne Sherman medical observer, on 12/18/2023 at 1:00 PM Nicole DENNIS PA-C, have personally reviewed and agree with the information entered by the scribe. Coding Level of Care Code Global (64887) Diagnoses History of total right hip replacement Z96.641
[2023-12-18 12:58] VITALS: BMI 28.9
== END 2023-12-18 15:24 | disposition home or self-care (01) ==
PROVIDERS: PCP Internal Medicine; Visit Provider Physician Assistant
DX: Z96.641 Presence of right artificial hip joint (principal)
CPT/HCPCS: 99024

== ENCOUNTER → 2023-12-18 12:43 | Outpatient (BNVA) | payer MEDICARE, OTHER, SELFPAY | PROVIDERS: PCP Internal Medicine; Visit Provider Physician Assistant | DX: Z47.1 Aftercare following joint replacement surgery (principal); Z96.641 Presence of right artificial hip joint | CPT/HCPCS: 99212 ==

== ENCOUNTER 2023-12-31 10:59 | Outpatient (AMB) | payer MEDICARE, MEDICAID, SELFPAY ==
[2023-12-31 11:01] VITALS: BP 128/70; PULSE 92; O2SAT 96; BMI 30.1
--- NOTE | 2023-12-31 11:01 | MHC.PC.OV ---
Vital Signs 12/31/23 11:01 Height 5 ft 8 in Weight 198 lb BMI 30.1 BP 128/70 Blood Pressure Location Lt brachial Position Sitting Pulse 92 Pulse Source Pulse Oximeter Pulse Oximetry (%) 96 Oxygen Delivery Method Room Air Intake Visit Reasons: PE Allergies morphine [MORPHINE] Allergy (Intermediate, Verified 12/31/23 11:01) TACHYCARDIA dextromethorphan [From NYQUIL] Allergy (Unknown, Verified 12/31/23 11:01) HIVES divalproex sodium [Depakote] Allergy (Unknown, Verified 12/31/23 11:01) Unknown doxylamine [From NYQUIL] Allergy (Unknown, Verified 12/31/23 11:01) HIVES pseudoephedrine [From DAYQUIL SINUS PRESSURE/PAIN] Allergy (Unknown, Verified 12/31/23 11:01) HIVES rosuvastatin Allergy (Unknown, Verified 12/31/23 11:01) SOB Medication List - Last Reconciled 12/31/23 by Zuri Feldman MD [shower chair As directed] acetaminophen 650 mg (2 x 325 mg) PO Q6H PRN 30 days albuterol sulfate 2.5 mg (3 mL) inhalation QID PRN 30 days albuterol sulfate 90 mcg/actuation 2 puffs PO Q6H PRN NS apixaban (Eliquis) 2.5 mg PO BID atorvastatin 80 mg PO DAILY clotrimazole-betamethasone 1-0.05 % 1 appl topical BID PRN fluticasone propion-salmeterol 250-50 mcg/dose (Wixela Inhub) 1 inh inhalation BID 30 days fluticasone propionate 50 mcg/actuation 2 sprays intranasal DAILY gabapentin 300 mg PO TID lidocaine 5% 1 patch topical DAILY meloxicam 15 mg PO DAILY miconazole nitrate 2% (Zeasorb AF) 1 appl topical BID PRN omeprazole 20 mg PO BID@0630,1630 oxycodone 5 mg PO Q6H PRN 7 days tamsulosin 0.4 mg PO DAILY varenicline (Chantix Continuing Month Box) 1 mg PO BID [WALKER As directed] Tobacco use date assessed: 10/21/23 Fall risk assessment: No Falls in past year Last assessed Fall Risk: 12/31/23 Dental Screening Dental Screen Date: 12/31/23 Did you have a dental visit in the last 12 months?: No Did you have a dental problem in the last 6 months where you did not have access to dental care?: No Was dental information given to patient?: Patient has dentist HPI PE HPI Details 63-year-old obese male smoker with COPD and right hip osteoarthritis coming in for physical exam. Last seen in October 2023. Colonoscopy was in March 2018 with tubular adenoma. Patient is here for physical exam. Patient had right total hip arthroplasty [id number] started home therapy. Patient did see Pulmonary also in October 2023 on Wixela and albuterol. [facility] Medical History Arthritis Abdominal hernia Numbness Cough Habitual snoring Atelectasis of left lung COPD (chronic obstructive pulmonary disease) Smoker Tinea cruris Pes anserinus bursitis of left knee Upper respiratory tract infection Rib fractures Annual physical exam Contusion of chest Back strain Osteoarthritis of right hip Right hip pain Right middle lobe pulmonary infiltrate SOB (shortness of breath) Sinus congestion Overweight (BMI 25.0-29.9) Urgency of micturition Carpal tunnel syndrome Femoral fracture Pulmonary nodule BPH (benign prostatic hyperplasia) Seizure disorder Insomnia Vitamin D deficiency Impaired glucose tolerance Hypercholesterolemia Anxiety GERD (gastroesophageal reflux disease) Polysubstance abuse Left subclavian artery occlusion Brain aneurysm CVA (cerebral vascular accident) Vocal cord polyp Vitamin B12 deficiency Surgical History History of nasal surgery H/O colonoscopy Stenosis of subclavian bypass History of surgery History of orthopedic surgery History of knee replacement procedure of right knee Family History Father CAD (coronary artery disease) Kidney malignancy Mother Myocardial infarction Brother Prostate cancer Social History (Updated 12/31/23 @ 11:25 by Zuri Feldman MD) Household Members: Other Household Members Other:: roomate Housing: Other Housing Other:: trailer Are you a primary lawn care technician to a significant other at home: No Do you presently have visiting nurse or 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 home 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) 75 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 or older and lives alone: No Alcohol intake: current Alcohol intake frequency: 0-2 drinks per day Alcohol type: beer Comment: 4 drinks last night Patient Tobacco Use Status: Current everyday Tobacco user Tobacco use type: Cigarette Cigarettes Per Day: 4 Years Smoked: 50, stopped 12/29/2023 on chantix e-Cigarette/Vaping Use: Never Used Second Hand Smoke Exposure: Yes Substance Use Type: Marijuana service: No Current occupational status: unemployed Cognitive needs: No Hearing needs: No Vision needs: Yes Questionnaire PHQ-9 Over the last 2 weeks, how often have you been bothered by any of the following problems? 1. Little interest or pleasure in doing things: not at all 2. Feeling down, depressed, or hopeless: not at all 3. Trouble falling or staying asleep, or sleeping too much: not at all 4. Feeling tired or having little energy: not at all 5. Poor appetite or overeating: not at all 6. Feeling bad about yourself - or that you are a failure or have let yourself or your family down: not at all 7. Trouble concentrating on things, such as reading the newspaper or watching television: not at all 8. Moving or speaking so slowly that other people could have noticed. Or the opposite - being so fidgety or restless that you have been moving around a lot more than usual: not at all 9. Thoughts that you would be better off or of hurting yourself in some way: not at all Total score: 0 Depression Screening Interpretation: Negative Depression Screening Done: Yes Source: Developed by Drs. Basilio Esteves, Gina Sales, Zev Ambriz and colleagues, with an educational teodoro from [employer]. Thrive Questionnaire Date Thrive assessed: 12/03/23 AUDIT C Alcohol Use Questionnaire (AUDIT-C) 1. How often do you have a drink containing alcohol?: 2-4 times a month 2. How many drinks containing alcohol do you have on a typical day when you are drinking?: 1 or 2 3. How often do you have six or more drinks on one occasion?: Never Total Score: 2 DANIE-7 AMB Questionnaire DANIE-7 Date DANIE - 7 assessed: 11/12/23 Source: Developed by Drs. Basilio Esteves, Gina Sales, Zev Ambriz and colleagues, with an educational teodoro from [employer]. Review of Systems Const Denies poor appetite and Denies weakness Eyes Denies no additional complaints ENT Reports Normal hearing present, Denies dizziness, Denies nasal congestion, Denies tinnitus and Denies sore throat Card Denies chest pain, Denies syncope, Denies rapid heart rate and Denies dyspnea Resp Denies cough and Denies dyspnea GI Denies change in stool character, Reports constipation, Denies diarrhea, Denies nausea and Denies vomiting Denies dysuria and Denies urinary frequency Neuro Reports Normal hearing present, Denies confusion, Denies dizziness, Denies syncope and Denies weakness Psych Denies confusion Physical exam (Primary Care) Vital Signs: Last Vital Signs Pulse 92 12/31/23 11:01 BP 128/70 12/31/23 11:01 Pulse Ox 96 12/31/23 11:01 Oxygen Delivery Method Room Air 12/31/23 11:01 BMI result Body Mass Index 30.1 Tobacco/Smoking Status: Tobacco use Status Tobacco use date assessed 10/21/23 12/31/23 11:05 Patient Tobacco Use Status Current everyday Tobacco 12/31/23 11:05 Tobacco use type Cigarette 12/31/23 11:05 e-Cigarette/Vaping Use Never Used 12/31/23 11:05 PHQ-9: PHQ-9 Score PHQ-9: Total score 0 12/31/23 11:05 Depression Screening Interpretation: Negative Thrive Assessment: Date of Thrive Assessment Date Thrive assessed 12/03/23 12/31/23 11:05 Const General: alert and awake; No confusion Orientation/consciousness: No confusion HENMT Head: Yes normocephalic Ears: external ears normal and TM's normal bilaterally Face and sinus: Yes normal facial exam Mouth: moist mucous membranes Throat: Yes tonsils normal Eyes Conjunctivae: conjunctivae normal Pupils: Equal, round and reactive pupils present and Pupil accommodation reflex normal Direct Ophthalmoscopy: normal light reflex Neck Neck: No lymphadenopathy Thyroid: Thyroid normal Chest Chest palpation & inspection: normal inspection of the chest Resp Effort & Inspection: normal respiratory effort and no audible wheezes Auscultation: clear to auscultation bilaterally, no crackles, no wheezes and lung sounds not diminished Cardio Rate: regular rate Rhythm: regular rhythm Peripheral pulses: radial pulses present and dorsalis pedis present GI Other: guaiac negative , prostate n Palpation (GI): no masses Auscultation: normal bowel sounds and normoactive bowel sounds Other: incisional scar R hip area clean no redness Male General Exam: Yes normal external exam Skin General skin exam: no rashes or lesions noted Rashes: no rashes Neuro General: deep tendon reflexes 2+ bilaterally and No confusion Cranial nerves: Yes Equal, round and reactive pupils present, Yes Midline tongue present, Yes Normal hearing present and Yes Ability to bilaterally elevate shoulders present Cognition (Neuro): normal cognition Gait exam (Neuro): Normal gait present Motor exam (neuro): 5/5 motor strength present throughout Deep tendon reflexes (DTR's): Right brachioradialis reflex intensity grade: 2+, Left brachioradialis reflex intensity grade: 2+, Right patellar reflex intensity grade: 2+ and Left patellar reflex intensity grade: 2+ Assessment and Plan Assessment & Plan (1) Annual physical exam: Code(s): Z00.00 - Encounter for general adult medical examination without abnormal findings (2) History of total right hip replacement: Comment: November 2023 Code(s): Z96.641 - Presence of right artificial hip joint Plan: Patient continues to follow-up with Ortho, on home physical therapy (3) GERD (gastroesophageal reflux disease): Code(s): K21.9 - Gastro-esophageal reflux disease without esophagitis Qualifiers: Esophagitis presence: without esophagitis Qualified Code(s): K21.9 - Gastro-esophageal reflux disease without esophagitis Plan: Avoid the foods that causes that usually spicy foods, tomato products, juices, coffee, soda and foods that your sensitive to. After eating do not lie down, allow 3-4 hours before in lie down. And keep the head of bed above 30 degrees to avoid the acid from going up. (4) Hypercholesterolemia: Code(s): E78.00 - Pure hypercholesterolemia, unspecified Plan: Avoid fried foods, chicken skin, eggs, butter margarine, pastries and meat. Be it pork or beef they have a lot of cholesterol May 2023 last blood work LDL goal of less than 70 and triglyceride of less than 150 presently on atorvastatin 80 mg once a day (5) Impaired glucose tolerance: Code(s): R73.02 - Impaired glucose tolerance (oral) Plan: Decrease the amount of carbohydrate intake, pasta, bread, rice and potatoes are all sugar and that is aside from all the sweet stuff, remember that fruits are good but they are Sweet also. (6) BPH (benign prostatic hyperplasia): Code(s): N40.0 - Benign prostatic hyperplasia without lower urinary tract symptoms Qualifiers: Lower urinary tract symptom presence: symptoms present Lower urinary tract symptom detail: urinary frequency Qualified Code(s): N40.1 - Benign prostatic hyperplasia with lower urinary tract symptoms; R35.0 - Frequency of micturition Plan: Continue with tamsulosin (7) COPD (chronic obstructive pulmonary disease): Comment: PATIENT HAS MILD TO MODERATE DEGREE OF CHRONIC OBSTRUCTIVE PULMONARY DISEASE. SEEMS TO BE. STABLE AND CONTROLLED AT THIS TIME TX : WIXELA 250-50 1 INHALATION B.I.D. ALBUTEROL HFA 2 PUFFS Q 4-6 HOURS P.R.N. Code(s): J44.9 - Chronic obstructive pulmonary disease, unspecified Plan: Continue with inhalers (8) Tobacco abuse: Code(s): Z72.0 - Tobacco use (9) Tubular adenoma of colon: Comment: 2017 Dr. Weir Code(s): D12.6 - Benign neoplasm of colon, unspecified Plan: Patient is reminded about colonoscopy Orders: Orders Ferritin 3 Months R73.02 - Impaired glucose tolerance (oral) Comprehensive Met. Panel 3 Months R73.02 - Impaired glucose tolerance (oral) Hemoglobin A1c 3 Months R73.02 - Impaired glucose tolerance (oral) Vitamin B12 and Folate 3 Months R73.02 - Impaired glucose tolerance (oral) Complete Blood Count Auto Diff 3 Months R73.02 - Impaired glucose tolerance (oral) Lipid Panel 3 Months E78.00 - Pure hypercholesterolemia, unspecified, R73.02 - Impaired glucose tolerance (oral) Free T4 (Free Thyroxine) 3 Months R73.02 - Impaired glucose tolerance (oral) Reticulocyte Count 3 Months R73.02 - Impaired glucose tolerance (oral) Thyroid Stimulating Hormone 3 Months R73.02 - Impaired glucose tolerance (oral) Prostate Specific Antigen Scr 3 Months R73.02 - Impaired glucose tolerance (oral) Medications: Changed From gabapentin 300 mg PO TID To gabapentin 300 mg PO TID 270 caps 1RF 90 days Refilled meloxicam 15 mg PO DAILY 90 tabs 0RF B35.6 - Tinea cruris Coding Level of Care Code Est Pt Prev Care >65y(90672) Diagnoses Annual physical exam Z00.00 History of total right hip replacement Z96.641 Gastroesophageal reflux disease without esophagitis K21.9 Esophagitis presence: without esophagitis Hypercholesterolemia E78.00 Impaired glucose tolerance R73.02 Benign prostatic hyperplasia with urinary frequency N40.1; R35.0 Lower urinary tract symptom presence: symptoms present Lower urinary tract symptom detail: urinary frequency COPD (chronic obstructive pulmonary disease) J44.9 Tobacco abuse Z72.0 Tubular adenoma of colon D12.6
== END 2023-12-31 11:42 | disposition home or self-care (01) ==
PROVIDERS: Visit Provider Internal Medicine
DX: Z00.00 Encounter for general adult medical examination without abnormal findings (principal); Z96.641 Presence of right artificial hip joint; J44.9 Chronic obstructive pulmonary disease, unspecified; K21.9 Gastro-esophageal reflux disease without esophagitis; E78.00 Pure hypercholesterolemia, unspecified; R73.02 Impaired glucose tolerance (oral); N40.1 Benign prostatic hyperplasia with lower urinary tract symptoms; R35.0 Frequency of micturition; Z72.0 Tobacco use; D12.6 Benign neoplasm of colon, unspecified
CPT/HCPCS: 99397

== ENCOUNTER 2024-01-12 09:58 | Outpatient (REF) | payer MEDICARE, OTHER, SELFPAY ==
--- NOTE | ~2024-01-12 | XR_ITS ---
EXAMINATION: XR HIP, RIGHT CLINICAL INFORMATION: Pain. COMPARISON: Pelvic radiograph 06/16/2023. TECHNIQUE: Two views of the right hip. FINDINGS: Total right-sided hip arthroplasty. No evidence of periprosthetic fracture or hardware complication. No acute fractures or malalignment. Moderate degenerative osteoarthritis in the left hip with joint space narrowing and superolateral subcortical sclerosis, not significantly changed. Pelvic ring and pubic symphysis are maintained. Unchanged mild increased sclerosis of the right greater than left parasymphyseal pubic rami. Partially imaged chronic deformity of the right mid femoral shaft. Redemonstration of pelvic phleboliths. XR/XR hip RT min 2V IMPRESSION: 1. No acute fractures or malalignment. 2. Total right-sided hip arthroplasty without evidence of hardware complication. 3. Moderate degenerative osteoarthritis of the left hip. 4. Stable mild increased sclerosis of the right greater than left parasymphyseal pubis. 5. Partially seen chronic deformity of the right mid femoral shaft.
== END 2024-01-12 09:59 | disposition home or self-care (01) ==
LOC: HO.HOSX 09:58
PROVIDERS: Visit Provider Orthopaedic Surgery
DX: Z47.1 Aftercare following joint replacement surgery (principal); M25.551 Pain in right hip; Z96.641 Presence of right artificial hip joint; Z79.891 Long term (current) use of opiate analgesic
CPT/HCPCS: 73502; 99212

== ENCOUNTER 2024-01-12 11:11 | Outpatient (AMB) | payer MEDICARE, OTHER, SELFPAY ==
--- NOTE | 2024-01-12 11:27 | A.OFFVIS_ITS ---
Intake Vital Signs 01/12/24 11:28 Height 5 ft 8 in Weight 198 lb BMI 30.1 Intake Visit Reasons: PO 6 week RT CHUYITA 12/02/23 NE Intake Note: Stas is a 63 year old male who presents today for a follow up of his right hip s/p Right CHUYITA 12/02/22. Patient reports that he is feeling sore, and warm to the touch. He was discharged from physical therapy and doing home exercise program. Allergies dextromethorphan [From NYQUIL] Allergy (Unknown, Verified 12/31/23 11:01) HIVES divalproex sodium [Depakote] Allergy (Unknown, Verified 12/31/23 11:01) Unknown doxylamine [From NYQUIL] Allergy (Unknown, Verified 12/31/23 11:01) HIVES pseudoephedrine [From DAYQUIL SINUS PRESSURE/PAIN] Allergy (Unknown, Verified 12/31/23 11:01) HIVES rosuvastatin Allergy (Unknown, Verified 12/31/23 11:01) SOB HPI PO 6 week RT CHUYITA 12/02/23 NE HPI Details Brain is 6 weeks status post right hip replacement. Overall he is doing well. He continues to feel better every day. He is walking with a cane and continuing to take Percocet although only once a day. [facility] Medical History Arthritis Abdominal hernia Numbness Cough Habitual snoring Atelectasis of left lung COPD (chronic obstructive pulmonary disease) Smoker Tinea cruris Pes anserinus bursitis of left knee Upper respiratory tract infection Rib fractures Annual physical exam Contusion of chest Back strain Osteoarthritis of right hip Right hip pain Right middle lobe pulmonary infiltrate SOB (shortness of breath) Sinus congestion Overweight (BMI 25.0-29.9) Urgency of micturition Carpal tunnel syndrome Femoral fracture Pulmonary nodule BPH (benign prostatic hyperplasia) Seizure disorder Insomnia Vitamin D deficiency Impaired glucose tolerance Hypercholesterolemia Anxiety GERD (gastroesophageal reflux disease) Polysubstance abuse Left subclavian artery occlusion Brain aneurysm CVA (cerebral vascular accident) Vocal cord polyp Vitamin B12 deficiency Surgical History History of nasal surgery H/O colonoscopy Stenosis of subclavian bypass History of surgery History of orthopedic surgery History of knee replacement procedure of right knee Family History Father CAD (coronary artery disease) Kidney malignancy Mother Myocardial infarction Brother Prostate cancer Social History (Updated 12/31/23 @ 11:25 by Zuri Feldman MD) Household Members: Other Household Members Other:: roomate Housing: Other Housing Other:: trailer Are you a primary intensive care specialist to a significant other at home: No Do you presently have visiting nurse or other home 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: 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) 75 years or older and lives alone: No Alcohol intake: current Alcohol intake frequency: 0-2 drinks per day Alcohol type: beer Comment: 4 drinks last night Patient Tobacco Use Status: Current everyday Tobacco user Tobacco use type: Cigarette Cigarettes Per Day: 4 Years Smoked: 50, stopped 12/29/2023 on chantix e-Cigarette/Vaping Use: Never Used Second Hand Smoke Exposure: Yes Substance Use Type: Marijuana service: No Current occupational status: unemployed Cognitive needs: No Hearing needs: No Vision needs: Yes Physical Exam Vital Signs: BMI result Body Mass Index 30.1 Extrem Other: inc c/d/i Mild Trendelenburg gait No pain with gait No pain with hip range of motion Results Reviewed Results Reviewed: I personally reviewed relevant radiographs. Right CHUYITA in expected post operative position with no hardware complications or evidence of loosening Assessment & Plan Assessment & Plan (1) History of total right hip replacement: Comment: November 2023 Code(s): Z96.641 - Presence of right artificial hip joint Plan: Doing well Follow up 6 weeks. Will submit final refill of Oxycodone 5mg Orders: Orders XR pelvis 1-2V Today M25.559 - Pain in unspecified hip Medications: Changed From oxycodone Partial Fill upon patient request. 5 mg PO Q6H 7 days PRN 28 tabs 0RF Pain, Moderate(Pain Scale 4-6) To oxycodone Partial Fill upon patient request. 5 mg PO DAILY 21 days PRN 21 tabs 0RF Pain, Moderate(Pain Scale 4-6) Coding Level of Care Code Global (87325) Diagnoses History of total right hip replacement Z96.641
[2024-01-12 11:28] VITALS: BMI 30.1
== END 2024-01-12 12:27 | disposition home or self-care (01) ==
PROVIDERS: PCP Internal Medicine; Visit Provider Orthopaedic Surgery
DX: Z96.641 Presence of right artificial hip joint (principal)
CPT/HCPCS: 99024

== ENCOUNTER 2024-02-16 14:15 | Outpatient (AMB) | payer MEDICARE, SELFPAY ==
[2024-02-16 14:38] VITALS: BP 122/72; PULSE 80; O2SAT 96
--- NOTE | 2024-02-16 14:38 | A.OFFVIS_ITS ---
Vital Signs 02/16/24 14:38 Height 5 ft 8 in Weight 197 lb 5.019 oz BMI 30.0 BP 122/72 Blood Pressure Location Lt brachial Position Sitting Pulse 80 Pulse Source Pulse Oximeter Pulse Oximetry (%) 96 Oxygen Delivery Method Room Air Intake Visit Reasons: COPD Intake Note: pt is here for follow up and states he has a cough, with production Medical Detail Representative Required: No Allergies divalproex sodium [Depakote] Allergy (Unknown, Verified 02/16/24 14:51) Unknown rosuvastatin Allergy (Unknown, Verified 02/16/24 14:51) SOB Medication List - Last Reconciled 02/16/24 by Rey Oneil MD [shower chair As directed] acetaminophen 650 mg (2 x 325 mg) PO Q6H PRN 30 days albuterol sulfate 2.5 mg (3 mL) inhalation QID PRN 30 days albuterol sulfate 90 mcg/actuation 2 puffs PO Q6H PRN NS alprazolam 0.25 mg PO BEDTIME PRN apixaban (Eliquis) 2.5 mg PO BID atorvastatin 80 mg PO DAILY celecoxib (Celebrex) 200 mg PO DAILY clotrimazole-betamethasone 1-0.05 % 1 appl topical BID PRN fluticasone propion-salmeterol 250-50 mcg/dose (Wixela Inhub) 1 inh inhalation BID 30 days fluticasone propionate 50 mcg/actuation 2 sprays intranasal DAILY gabapentin 300 mg PO TID 90 days meloxicam 15 mg PO DAILY miconazole nitrate 2% (Zeasorb AF) 1 appl topical BID PRN omeprazole 20 mg PO BID@0630,1630 tamsulosin 0.4 mg PO DAILY tramadol 50 mg PO Q4H PRN varenicline (Chantix Continuing Month Box) 1 mg PO BID [WALKER As directed] Do you need a note to return to daycare/school/sports/work: No HPI HPI COPD: Details: 63 YEARS OLD GENTLEMAN WITH LONGSTANDING HISTORY OF BRONCHIAL ASTHMA/COPD, IS HERE FOR HIS ROUTINE. FOLLOW-UP AFTER 4 MONTHS HE DID HAVE RIGHT HIP SURGERY AND AFTER THAT HE IS NOW WALKING FINE WITHOUT MUCH PAIN. UNFORTUNATELY RIGHT AFTER THE HIP SURGERY HE STARTED SMOKING AGAIN. HE IS TRYING TO CUT IT DOWN AND QUIT, CURRENTLY SMOKING ABOUT 6-7 CIGARETTES A DAY. BREATHING HAS BEEN GOOD EXCEPT FOR INTERMITTENT COUGH WHICH IS MOST LIKELY RELATED TO HIS SMOKING. HE HAS VERY LITTLE SHORTNESS OF BREATH ON WALKING AROUND. [facility] Medical History Osteoarthritis of right hip Arthritis Abdominal hernia Numbness Cough Habitual snoring Atelectasis of left lung COPD (chronic obstructive pulmonary disease) Smoker Tinea cruris Pes anserinus bursitis of left knee Upper respiratory tract infection Rib fractures Annual physical exam Contusion of chest Back strain Osteoarthritis of right hip Right hip pain Right middle lobe pulmonary infiltrate SOB (shortness of breath) Sinus congestion Overweight (BMI 25.0-29.9) Urgency of micturition Carpal tunnel syndrome Femoral fracture Pulmonary nodule BPH (benign prostatic hyperplasia) Seizure disorder Insomnia Vitamin D deficiency Impaired glucose tolerance Hypercholesterolemia Anxiety GERD (gastroesophageal reflux disease) Polysubstance abuse Left subclavian artery occlusion Brain aneurysm CVA (cerebral vascular accident) Vocal cord polyp Vitamin B12 deficiency Surgical History History of nasal surgery H/O colonoscopy Stenosis of subclavian bypass History of surgery History of orthopedic surgery History of knee replacement procedure of right knee Family History Father CAD (coronary artery disease) Kidney malignancy Mother Myocardial infarction Brother Prostate cancer Social History Household Members: Other Household Members Other:: roomate Housing: Other Housing Other:: trailer Are you a primary care center manager to a significant other at home: No Do you presently have visiting nurse or 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 home 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: 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 and lives alone: No Alcohol intake: current Alcohol intake frequency: 0-2 drinks per day Alcohol type: beer Comment: 4 drinks last night Patient Tobacco Use Status: Current everyday Tobacco user Tobacco use type: Cigarette Cigarettes Per Day: 4 Years Smoked: 50, stopped 12/29/2023 on chantix e-Cigarette/Vaping Use: Never Used Second Hand Smoke Exposure: Yes Substance Use Type: Marijuana service: No Current occupational status: unemployed Cognitive needs: No Hearing needs: No Vision needs: Yes Review of Systems Const All systems reviewed & are unremarkable except as noted in HPI and below Eyes Reports no additional complaints ENT Reports no additional complaints Card Denies chest pain, Denies irregular heart rhythm and Denies leg edema Resp Reports as per HPI GI Reports constipation and Reports heartburn Reports no additional complaints Musc Reports arthralgias (HIPS) Skin/Breast Reports system reviewed and no additional complaints, except as documented Neuro Reports no additional complaints Psych Reports no additional complaints Endo Reports no additional complaints Sarkis/Lymph Reports no additional complaints Physical Exam Vital Signs: Last Vital Signs Pulse 80 02/16/24 14:38 BP 122/72 02/16/24 14:38 Pulse Ox 96 02/16/24 14:38 Oxygen Delivery Method Room Air 02/16/24 14:38 BMI result Body Mass Index 30.0 Const General: comfortable, no acute distress, alert and awake Orientation/consciousness: patient oriented x3 HEENT Head: Yes normal to inspection General nose exam: No nasal polyps present and No nasal discharge present Face and sinus: Yes sinuses nontender Mouth: oropharynx normal Throat: Yes posterior oropharynx normal Eyes General: appearance normal, both eyes and all related structures Neck Other: SCAR ON THE LEFT SIDE FROM PREVIOUS CAROTID ENDARTERECTOMIES Neck: Yes normal visual inspection, Yes no lymphadenopathy, Yes trachea midline and Yes no JVD Thyroid: Thyroid normal Chest Chest palpation & inspection: normal inspection of the chest, normal palpation of entire chest wall and no tenderness Resp Other: PERCUSSION NOTE IS RESONANT, BREATH SOUNDS ARE SLIGHTLY DISTANT AND ESPECIALLY DECREASED OVER. THE BASILAR AREAS NO CREPITATIONS OR WHEEZES. ARE HEARD TODAY Cardio Palpation: normal PMI Rate: regular rate Rhythm: regular rhythm Heart sounds: no gallops and no murmurs GI Palpation (GI): Soft to palpation, nontender, No hepatosplenomegaly present and no masses Auscultation: normal bowel sounds Back/Spine/Pelvis Thoracic/Lumbar Spine: thoracic and lumbar spine normal to inspection Skin General skin exam: no rashes or lesions noted Neuro General: patient oriented x3 and no focal motor deficits Cranial nerves: Yes CN's II-XII intact bilaterally Extrem General: Yes normal to inspection, Yes no clubbing, cyanosis or edema and Yes no calf tenderness Psych Appearance: grossly normal and well kempt Speech and movement: Normal speech and movement present Assessment & Plan Assessment & Plan (1) COPD (chronic obstructive pulmonary disease): Comment: PATIENT HAS MILD TO MODERATE DEGREE OF CHRONIC OBSTRUCTIVE PULMONARY DISEASE. SEEMS TO BE. STABLE AND CONTROLLED AT THIS TIME. COMPLAINS OF INTERMITTENT COUGH PROBABLY RELATED TO SMOKING. Code(s): J44.9 - Chronic obstructive pulmonary disease, unspecified Category: Medical Plan: [place] : WIXELA 250-50 1 INHALATION B.I.D. ALBUTEROL HFA 2 PUFFS Q 4-6 HOURS P.R.N. (2) Atelectasis of left lung: Comment: CHEST X-RAY ON 07/16/23, SHOWED CHRONIC LINEAR ATELECTASIS RIGHT MID LUNG, ALSO SHOWED ATELECTASIS/ VS PNEUMONIA IN THE LEFT BASE., FOLLOW-UP X-RAY ON HIS LAST VISIT IN OCTOBER SHOWED THAT THE PNEUMONIA IN THE LEFT BASE HAD COMPLETELY RESOLVED. Code(s): J98.11 - Atelectasis Category: Medical Plan: ABOVE (3) Smoker: Comment: HE DOES HAVE LONGSTANDING HISTORY OF SMOKING, TRYING TO CUT IT DOWN NOW AND QUIT COMPLETELY . Code(s): F17.200 - Nicotine dependence, unspecified, uncomplicated Category: Social Hx Plan: STRESSED THAT HE SHOULD TRY TO QUIT SMOKING COMPLETELY. HE IS ON CHANTIX 1 MG B.I.D. Coding Level of Care Code Est Pt Level 3 (91767) Diagnoses COPD (chronic obstructive pulmonary disease) J44.9 Atelectasis of left lung J98.11 Smoker F17.200
== END 2024-02-16 14:51 | disposition home or self-care (01) ==
PROVIDERS: PCP Internal Medicine; Visit Provider Internal Medicine
DX: J44.9 Chronic obstructive pulmonary disease, unspecified (principal); J98.11 Atelectasis; F17.200 Nicotine dependence, unspecified, uncomplicated
CPT/HCPCS: 99213

== ENCOUNTER → 2024-02-16 14:15 | Outpatient (BNVA) | payer MEDICARE, SELFPAY | PROVIDERS: PCP Internal Medicine; Visit Provider Internal Medicine | DX: J44.9 Chronic obstructive pulmonary disease, unspecified (principal); J98.11 Atelectasis; F17.210 Nicotine dependence, cigarettes, uncomplicated | CPT/HCPCS: 99212 ==

== ENCOUNTER 2024-02-23 11:14 | Outpatient (AMB) | payer MEDICARE, OTHER, SELFPAY ==
--- NOTE | 2024-02-23 11:17 | A.OFFVIS_ITS ---
Vital Signs 02/23/24 11:18 Height 5 ft 8 in Weight 197 lb BMI 30.0 Intake Visit Reasons: PO 6 week RT CHUYITA 12/02/23 NE Intake Note: Stas is a 63 year old male who presents today for a follow up of his right hip s/p Right THAStas is a 63 year old male who presents today for a follow up of his right hip s/p Right CHUYITA 12/02/22. Patient reports that he is doing well, he has some soreness in the muscles. He is due for a colonoscopy, and also has a tooth that is cutting into his tongue which he will need to have this repaired 12/02/22 Allergies divalproex sodium [Depakote] Allergy (Unknown, Verified 02/23/24 11:17) Unknown rosuvastatin Allergy (Unknown, Verified 02/23/24 11:17) SOB HPI HPI PO 6 week RT CHUYITA 12/02/23 NE: Details: Stas is a 63 year old male who presents today for a follow up of his right hip s/p Right CHUYITA 12/02/22. Patient reports that he is doing well, he has some soreness in the muscles. He is due for a colonoscopy, and also has a tooth that is cutting into his tongue which he will need to have this repaired [facility] Medical History Osteoarthritis of right hip Arthritis Abdominal hernia Numbness Cough Habitual snoring Atelectasis of left lung COPD (chronic obstructive pulmonary disease) Smoker Tinea cruris Pes anserinus bursitis of left knee Upper respiratory tract infection Rib fractures Annual physical exam Contusion of chest Back strain Osteoarthritis of right hip Right hip pain Right middle lobe pulmonary infiltrate SOB (shortness of breath) Sinus congestion Overweight (BMI 25.0-29.9) Urgency of micturition Carpal tunnel syndrome Femoral fracture Pulmonary nodule BPH (benign prostatic hyperplasia) Seizure disorder Insomnia Vitamin D deficiency Impaired glucose tolerance Hypercholesterolemia Anxiety GERD (gastroesophageal reflux disease) Polysubstance abuse Left subclavian artery occlusion Brain aneurysm CVA (cerebral vascular accident) Vocal cord polyp Vitamin B12 deficiency Surgical History History of nasal surgery H/O colonoscopy Stenosis of subclavian bypass History of surgery History of orthopedic surgery History of knee replacement procedure of right knee Family History Father CAD (coronary artery disease) Kidney malignancy Mother Myocardial infarction Brother Prostate cancer Social History Household Members: Other Household Members Other:: roomate Housing: Other Housing Other:: trailer Are you a primary healthcare insurance sales agent to a significant other at home: No Do you presently have visiting nurse or other home services: 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) 75 years or older and lives alone: No Alcohol intake: current Alcohol intake frequency: 0-2 drinks per day Alcohol type: beer Comment: 4 drinks last night Patient Tobacco Use Status: Current everyday Tobacco user Tobacco use type: Cigarette Cigarettes Per Day: 4 Years Smoked: 50, stopped 12/29/2023 on chantix e-Cigarette/Vaping Use: Never Used Second Hand Smoke Exposure: Yes Substance Use Type: Marijuana service: No Current occupational status: unemployed Cognitive needs: No Hearing needs: No Vision needs: Yes Physical Exam Vital Signs: BMI result Body Mass Index 30.0 Extrem Other: walking comfortably no pain with hip ROM Assessment & Plan Assessment & Plan (1) History of total right hip replacement: Comment: November 2023 Code(s): Z96.641 - Presence of right artificial hip joint Category: Surgical Plan: Doing well Follow up 9 mo dentla prophylaxis discussed. Coding Level of Care Code Global (48934) Diagnoses History of total right hip replacement Z96.641
== END 2024-02-23 11:41 | disposition home or self-care (01) ==
PROVIDERS: PCP Internal Medicine; Visit Provider Orthopaedic Surgery
DX: Z96.641 Presence of right artificial hip joint (principal)
CPT/HCPCS: 99024

== ENCOUNTER → 2024-02-23 11:14 | Outpatient (BNVA) | payer MEDICARE, OTHER, SELFPAY | PROVIDERS: PCP Internal Medicine; Visit Provider Orthopaedic Surgery | DX: Z96.641 Presence of right artificial hip joint (principal) | CPT/HCPCS: 99212 ==

== ENCOUNTER 2024-03-29 09:24 | Outpatient (REF) | payer MEDICARE, OTHER, SELFPAY ==
[2024-03-29 10:15] LABS: MANUAL DIFF FLAG NO
[2024-03-29 10:28] LABS: Basophils Absolute Auto 0.1 X10*3/uL (0.0-0.2); Eosinophils Absolute Auto 0.2 X10*3/uL (0.0-0.4); Eosinophils Percent Auto 2.6 % (0-4); Hematocrit 41.2 % (42.0-52.0); Hemoglobin 14.6 g/dl (14.0-18.0); Imm Gran Abs Auto 0.02 X10*3/uL (0.00-0.03); Imm Gran Pct Auto 0.3 % (0.0-0.4); Immature Retic Fraction 10.2 % (2.3-13.4); Lymphocytes Absolute Auto 1.5 X10*3/uL (1.2-4.9); Lymphocytes Percent Auto 24.7 % (20-40); Mean Corpuscular HGB Conc 35.4 g/dl (31.0-36.0); Mean Corpuscular Hemoglobin 33.9 pg (27.0-33.0); Mean Corpuscular Volume 95.6 fL (80.0-98.0); Mean Platelet Volume 9.8 fL (9.4-12.4); Monocytes Absolute Auto 0.7 X10*3/uL (0.1-1.2); Monocytes Percent Auto 11.1 % (2-11); Neutrophils Absolute Auto 3.7 x10*3/uL (2.0-8.3); Neutrophils Percent Auto 60.3 % (45-73); Platelet Count 213 X10*3/uL (160-400); Red Blood Count 4.31 X10*6/uL (4.60-5.80); Red Cell Distribution Width 14.2 % (11.0-16.0); Retic HGB Equivalent 37.9 pg (30.0-35.0); Reticulocytes Absolute 0.085 X10*6/uL (0.026-0.095); White Blood Count 6.1 X10*3/uL (4.8-10.8)
[2024-03-29 10:45] LABS: Estimated Average Glucose 114 mg/dL; Hemoglobin A1c % 5.6 % (<6.0)
[2024-03-29 11:07] LABS: Alanine Aminotransferase 15 U/L (0-40); Albumin Level 3.9 g/dL (3.5-5.0); Alkaline Phosphatase 88 U/L (39-117); Anion Gap 11 (12-20); Aspartate Amino Transferase 14 U/L (5-37); Bilirubin Total 0.3 mg/dL (0.0-1.0); Blood Urea Nitrogen 9 mg/dL (9-16); Calcium 9.2 mg/dL (8.4-10.2); Carbon Dioxide 23 mmol/L (22-29); Chloride 112 mmol/L (96-108); Cholesterol 141 mg/dL (<200); Estimated Glomerular Filt Rate > 60; Glucose Random 92 mg/dL (60-115); HDL Cholesterol 77 mg/dL (>40); LDL Cholesterol Calculated 51 mg/dL (<100); Potassium 4.1 mmol/L (3.3-5.1); Sodium 142 mmol/L (135-145); Total Protein 6.5 g/dL (6.5-8.0); Triglycerides 68 mg/dL (<150)
[2024-03-29 11:25] LABS: Ferritin 24 ng/mL (20-250); Free T4 (Free Thyroxine) 0.96 ng/dL (0.71-1.85); Thyroid Stimulating Hormone 3.04 uIU/mL (0.32-4.0)
[2024-03-29 11:35] LABS: Folate 8.4 ng/mL (> or = 4.0); Prostate Specific Antigen Scr 4.94 ng/mL (<0.05-4.0); Vitamin B12 197 pg/mL (200-900)
== END 2024-03-29 09:25 | disposition home or self-care (01) ==
LOC: HO.HMGCLDS 09:24
PROVIDERS: PCP Internal Medicine; Visit Provider Internal Medicine
DX: R73.02 Impaired glucose tolerance (oral) (principal); E78.00 Pure hypercholesterolemia, unspecified; Z12.5 Encounter for screening for malignant neoplasm of prostate
CPT/HCPCS: 36415; 80053; 80061; 82607; 82728; 82746; 83036; 84153; 84439; 84443; 85025; 85045

== ENCOUNTER 2024-04-23 10:32 | Outpatient (AMB) | payer MEDICARE, SELFPAY ==
--- NOTE | 2024-04-23 10:42 | MHC.PC.OV ---
Vital Signs 04/23/24 10:46 Height 5 ft 8 in Weight 198 lb 4 oz BMI 30.1 BP 122/62 Blood Pressure Location Rt brachial Position Sitting Pulse 85 Pulse Source Pulse Oximeter Pulse Oximetry (%) 96 Oxygen Delivery Method Room Air Intake Visit Reasons: cholesterol Apparel Fashion Designer Required: No Accompanied by: Self / Same As Patient Allergies divalproex sodium [Depakote] Allergy (Unknown, Verified 04/23/24 10:46) Unknown rosuvastatin Allergy (Unknown, Verified 04/23/24 10:46) SOB Medication List - Last Reconciled 04/23/24 by Zuri Feldman MD [shower chair As directed] acetaminophen 650 mg (2 x 325 mg) PO Q6H PRN 30 days albuterol sulfate 2.5 mg (3 mL) inhalation QID PRN 30 days albuterol sulfate 90 mcg/actuation 2 puffs PO Q6H PRN NS alprazolam 0.25 mg PO BEDTIME PRN amoxicillin 2,000 mg (4 x 500 mg) PO ONCE apixaban (Eliquis) 2.5 mg PO BID atorvastatin 80 mg PO DAILY celecoxib (Celebrex) 200 mg PO DAILY clotrimazole-betamethasone 1-0.05 % 1 appl topical BID PRN cyanocobalamin (vitamin B-12) 1,000 mcg PO DAILY fluticasone propion-salmeterol 250-50 mcg/dose (Wixela Inhub) 1 inh inhalation BID 30 days fluticasone propionate 50 mcg/actuation 2 sprays intranasal DAILY gabapentin 300 mg PO TID 90 days miconazole nitrate 2% (Zeasorb AF) 1 appl topical BID PRN omeprazole 20 mg PO BID@0630,1630 tamsulosin 0.4 mg PO DAILY tramadol 50 mg PO Q4H PRN [WALKER As directed] Tobacco use date assessed: 10/21/23 Fall risk assessment: No Falls in past year Last assessed Fall Risk: 04/23/24 Dental Screening Dental Screen Date: 12/31/23 HPI cholesterol HPI Details 64-year-old obese male smoker with GERD hypercholesterolemia impaired glucose tolerance BPH coming in for follow-up. Last seen in 01/07/2024 patient was reminded about colonoscopy. Review of the notes has been follow-up with orthopedics had right total hip arthroplasty in 12/09/2023. Patient also follows up with Pulmonary for the COPD mild to moderate degree on Wixela and albuterol. still smoking 5-6 cigarettes a day still. states chantix give night mare but wants a different med for stopping PFSH Medical History (Updated 03/29/24 @ 18:52 by Zuri Feldman MD) Osteoarthritis of right hip Arthritis Abdominal hernia Numbness Cough Habitual snoring Atelectasis of left lung COPD (chronic obstructive pulmonary disease) Smoker Tinea cruris Pes anserinus bursitis of left knee Upper respiratory tract infection Rib fractures Annual physical exam Contusion of chest Back strain Osteoarthritis of right hip Right hip pain Right middle lobe pulmonary infiltrate SOB (shortness of breath) Sinus congestion Overweight (BMI 25.0-29.9) Urgency of micturition Carpal tunnel syndrome Femoral fracture Pulmonary nodule BPH (benign prostatic hyperplasia) Seizure disorder Insomnia Vitamin D deficiency Impaired glucose tolerance Hypercholesterolemia Anxiety GERD (gastroesophageal reflux disease) Polysubstance abuse Left subclavian artery occlusion Brain aneurysm CVA (cerebral vascular accident) Vocal cord polyp Vitamin B12 deficiency Surgical History History of nasal surgery H/O colonoscopy Stenosis of subclavian bypass History of surgery History of orthopedic surgery History of knee replacement procedure of right knee Family History Father CAD (coronary artery disease) Kidney malignancy Mother Myocardial infarction Brother Prostate cancer Social History Household Members: Other Household Members Other:: roomate Housing: Other Housing Other:: trailer Are you a primary career services director to a significant other at home: No Do you presently have visiting nurse or other home services: Yes (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) 75 years or older and lives alone: No Alcohol intake: current Alcohol intake frequency: 0-2 drinks per day Alcohol type: beer Comment: 4 drinks last night Patient Tobacco Use Status: Current everyday Tobacco user Tobacco use type: Cigarette Cigarettes Per Day: 4 Years Smoked: 50, stopped 12/29/2023 on chantix e-Cigarette/Vaping Use: Never Used Second Hand Smoke Exposure: Yes Substance Use Type: Marijuana service: No Current occupational status: unemployed Cognitive needs: No Hearing needs: No Vision needs: Yes Questionnaire Thrive Questionnaire Date Thrive assessed: 12/03/23 DANIE-7 AMB Questionnaire DANIE-7 Date DANIE - 7 assessed: 11/12/23 Source: Developed by Drs. Basilio Esteves, Gina Sales, Zev Ambriz and colleagues, with an educational teodoro from [employer]. Physical exam (Primary Care) Vital Signs: Last Vital Signs Pulse 85 04/23/24 10:46 BP 122/62 04/23/24 10:46 Pulse Ox 96 04/23/24 10:46 Oxygen Delivery Method Room Air 04/23/24 10:46 BMI result Body Mass Index 30.1 Tobacco/Smoking Status: Tobacco use Status Tobacco use date assessed 10/21/23 04/23/24 10:43 Patient Tobacco Use Status Current everyday Tobacco 04/23/24 10:43 Tobacco use type Cigarette 04/23/24 10:43 e-Cigarette/Vaping Use Never Used 04/23/24 10:43 Thrive Assessment: Date of Thrive Assessment Date Thrive assessed 12/03/23 04/23/24 10:43 Const General: alert; No acute distress Eyes Conjunctivae: conjunctivae normal Resp Auscultation: clear to auscultation bilaterally Cardio Rate: regular rate Rhythm: regular rhythm GI Inspection: Yes normal to inspection Extrem General: Yes normal to inspection and No edema Assessment and Plan Assessment & Plan (1) Obesity (BMI 30.0-34.9): Code(s): E66.9 - Obesity, unspecified Plan: Diet and exercise (2) Hypercholesterolemia: Code(s): E78.00 - Pure hypercholesterolemia, unspecified Plan: Avoid fried foods, chicken skin, eggs, butter margarine, pastries and meat. Be it pork or beef they have a lot of cholesterol on atorvastatin 80 mg once a day (3) GERD (gastroesophageal reflux disease): Code(s): K21.9 - Gastro-esophageal reflux disease without esophagitis Qualifiers: Esophagitis presence: without esophagitis Qualified Code(s): K21.9 - Gastro-esophageal reflux disease without esophagitis Plan: Avoid the foods that causes that usually spicy foods, tomato products, juices, coffee, soda and foods that your sensitive to. After eating do not lie down, allow 3-4 hours before in lie down. And keep the head of bed above 30 degrees to avoid the acid from going up. (4) COPD (chronic obstructive pulmonary disease): Comment: PATIENT HAS MILD TO MODERATE DEGREE OF CHRONIC OBSTRUCTIVE PULMONARY DISEASE. SEEMS TO BE. STABLE AND CONTROLLED AT THIS TIME. COMPLAINS OF INTERMITTENT COUGH PROBABLY RELATED TO SMOKING. Code(s): J44.9 - Chronic obstructive pulmonary disease, unspecified Plan: Continues to follow up with Pulmonary on Wixela and albuterol (5) Tobacco abuse: Code(s): Z72.0 - Tobacco use Plan: Patient is strongly advised to stop smoking! (6) History of total right hip replacement: Comment: November 2023 Code(s): Z96.641 - Presence of right artificial hip joint Plan: Continue to follow-up with orthopedics keep active (7) Vitamin B12 deficiency: Code(s): E53.8 - Deficiency of other specified B group vitamins Plan: Patient is reminded about the vitamin B12 (8) PSA elevation: Code(s): R97.20 - Elevated prostate specific antigen [PSA] Plan: Discussion regarding elevated PSA Medications: New bupropion HCl SR (Wellbutrin SR) 150 mg PO BID 60 tabs 2RF Z72.0 - Tobacco use celecoxib (Celebrex) 200 mg PO DAILY 90 caps 0RF Refilled cyanocobalamin (vitamin B-12) 1,000 mcg PO DAILY 30 caps 3RF E53.8 - Deficiency of other specified B group vitamins, R97.20 - Elevated prostate specific antigen [PSA] albuterol sulfate 90 mcg/actuation 2 puffs PO Q6H PRN 8.5 grams 0RF bronchospasm NS J43.9 - Emphysema, unspecified Discontinued meloxicam Discontinued Reason: Doctor's Order 15 mg PO DAILY 90 tabs 0RF B35.6 - Tinea cruris varenicline (Chantix Continuing Month Box) Discontinued Reason: Change Referral Type 1 mg PO BID 56 tabs 1RF Z72.0 - Tobacco use Coding Level of Care Code Est Pt Level 4 (91147) Diagnoses Obesity (BMI 30.0-34.9) E66.9 Hypercholesterolemia E78.00 Gastroesophageal reflux disease without esophagitis K21.9 Esophagitis presence: without esophagitis COPD (chronic obstructive pulmonary disease) J44.9 Tobacco abuse Z72.0 History of total right hip replacement Z96.641 Vitamin B12 deficiency E53.8 PSA elevation R97.20
[2024-04-23 10:46] VITALS: BP 122/62; PULSE 85; O2SAT 96; BMI 30.1
== END 2024-04-23 11:25 | disposition home or self-care (01) ==
PROVIDERS: PCP Internal Medicine; Visit Provider Internal Medicine
DX: E78.00 Pure hypercholesterolemia, unspecified (principal); J44.9 Chronic obstructive pulmonary disease, unspecified; F17.210 Nicotine dependence, cigarettes, uncomplicated; Z96.641 Presence of right artificial hip joint; E53.8 Deficiency of other specified B group vitamins; R97.20 Elevated prostate specific antigen [PSA]
CPT/HCPCS: 99214

== ENCOUNTER 2024-05-04 12:53 | Outpatient (AMB) | payer MEDICARE, SELFPAY ==
--- NOTE | 2024-05-04 13:15 | MHC.OFFWIV ---
Intake Vital Signs 05/04/24 13:16 Height 5 ft 8 in Weight 197 lb BMI 30.0 BP 128/66 Blood Pressure Location Rt brachial Position Sitting Pulse 82 Pulse Source Pulse Oximeter Temp 97.7 F Temp Source Temporal Artery Scan Pulse Oximetry (%) 94 Oxygen Delivery Method Room Air Intake Visit Reasons: EP RT elbow injury Intake Note: pt is here for right elbow injury due to fall at stop [employer] Patient Tobacco Use Status: Current everyday Tobacco user Allergies divalproex sodium [Depakote] Allergy (Unknown, Verified 05/04/24 13:18) Unknown rosuvastatin Allergy (Unknown, Verified 05/04/24 13:18) SOB Medication List - Last Reconciled 05/04/24 by Lucas Uriarte MD [shower chair As directed] acetaminophen 650 mg (2 x 325 mg) PO Q6H PRN 30 days albuterol sulfate 2.5 mg (3 mL) inhalation QID PRN 30 days albuterol sulfate 90 mcg/actuation 2 puffs PO Q6H PRN NS alprazolam 0.25 mg PO BEDTIME PRN amoxicillin 2,000 mg (4 x 500 mg) PO ONCE apixaban (Eliquis) 2.5 mg PO BID atorvastatin 80 mg PO DAILY bupropion HCl SR (Wellbutrin SR) 150 mg PO BID celecoxib (Celebrex) 200 mg PO DAILY clotrimazole-betamethasone 1-0.05 % 1 appl topical BID PRN cyanocobalamin (vitamin B-12) 1,000 mcg PO DAILY fluticasone propion-salmeterol 250-50 mcg/dose (Wixela Inhub) 1 inh inhalation BID 30 days fluticasone propionate 50 mcg/actuation 2 sprays intranasal DAILY gabapentin 300 mg PO TID 90 days miconazole nitrate 2% (Zeasorb AF) 1 appl topical BID PRN omeprazole 20 mg PO BID@0630,1630 tamsulosin 0.4 mg PO DAILY tramadol 50 mg PO Q4H PRN [WALKER As directed] Do you need a note to return to daycare/school/sports/work: No HPI EP RT elbow injury HPI Details Patient is 64-year-old gentleman came in today to be evaluated for injury right elbow yesterday 7:30 when he was in a grocery store and tripped He fell on the point of his elbow right side He is able to move the elbow fully with pain Patient says that yesterday it was swollen but this morning it is better as far as swelling is concerned On examination there is no skin lesion he is tender over the olecranon process with palpation Radial pulse is 2 +, sensory intact in his finger he is able to move his fingers and wrist without any pain X-ray of elbow ordered Patient have tramadol script already through PCP office he will take that for pain Further management after the x-ray report Patient was instructed to keep his hand elevated as much as possible [facility] Medical History Osteoarthritis of right hip Arthritis Abdominal hernia Numbness Cough Habitual snoring Atelectasis of left lung COPD (chronic obstructive pulmonary disease) Smoker Tinea cruris Pes anserinus bursitis of left knee Upper respiratory tract infection Rib fractures Annual physical exam Contusion of chest Back strain Osteoarthritis of right hip Right hip pain Right middle lobe pulmonary infiltrate SOB (shortness of breath) Sinus congestion Overweight (BMI 25.0-29.9) Urgency of micturition Carpal tunnel syndrome Femoral fracture Pulmonary nodule BPH (benign prostatic hyperplasia) Seizure disorder Insomnia Vitamin D deficiency Impaired glucose tolerance Hypercholesterolemia Anxiety GERD (gastroesophageal reflux disease) Polysubstance abuse Left subclavian artery occlusion Brain aneurysm CVA (cerebral vascular accident) Vocal cord polyp Vitamin B12 deficiency Surgical History History of nasal surgery H/O colonoscopy Stenosis of subclavian bypass History of surgery History of orthopedic surgery History of knee replacement procedure of right knee Family History Father CAD (coronary artery disease) Kidney malignancy Mother Myocardial infarction Brother Prostate cancer Social History Household Members: Other Household Members Other:: roomate Housing: Other Housing Other:: trailer Are you a primary healthcare economics manager to a significant other at home: No Do you presently have visiting nurse or other home services: Yes (community 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 officer) Alcohol intake: current Alcohol intake frequency: 0-2 drinks per day Alcohol type: beer Comment: 4 drinks last night Patient Tobacco Use Status: Current everyday Tobacco user Tobacco use type: Cigarette Cigarettes Per Day: 4 Years Smoked: 50, stopped 12/29/2023 on chantix e-Cigarette/Vaping Use: Never Used Second Hand Smoke Exposure: Yes Substance Use Type: Marijuana service: No Current occupational status: unemployed Cognitive needs: No Hearing needs: No Vision needs: Yes Review of Systems Const All systems reviewed & are unremarkable except as noted in HPI and below Physical Exam Vital Signs: Last Vital Signs Temp 97.7 F 05/04/24 13:16 Pulse 82 05/04/24 13:16 BP 128/66 05/04/24 13:16 Pulse Ox 94 05/04/24 13:16 Oxygen Delivery Method Room Air 05/04/24 13:16 BMI result Body Mass Index 30.0 Const General: no acute distress Orientation/consciousness: patient oriented x3 Eyes General: appearance normal, both eyes and all related structures Resp Effort & Inspection: normal respiratory effort and able to speak in complete sentences Neuro General: patient oriented x3 Extrem Shoulder/upper arm images: 1. Pain with palpation, range of motion full in elbow with pain, no skin lesion, vascular and sensory intact in right upper extremity Psych Mental Status: mental status grossly normal Assessment & Plan Assessment & Plan (1) Injury of elbow, right: Code(s): S59.901A - Unspecified injury of right elbow, initial encounter Qualifiers: Encounter type: initial encounter Qualified Code(s): S59.901A - Unspecified injury of right elbow, initial encounter Plan Patient is 64-year-old gentleman came in today to be evaluated for injury right elbow yesterday 7:30 when he was in a grocery store and tripped He fell on the point of his elbow right side He is able to move the elbow fully with pain Patient says that yesterday it was swollen but this morning it is better as far as swelling is concerned On examination there is no skin lesion he is tender over the olecranon process with palpation Radial pulse is 2 +, sensory intact in his finger he is able to move his fingers and wrist without any pain X-ray of elbow ordered Patient have tramadol script already through PCP office he will take that for pain Further management after the x-ray report Patient was instructed to keep his hand elevated as much as possible meanwhile Orders: Orders XR elbow RT min 3V Today S59.901A - Unspecified injury of right elbow, initial encounter Coding Level of Care Code Est Pt Level 4 (49581) Diagnoses Injury of right elbow, initial encounter S59.901A Encounter type: initial encounter
[2024-05-04 13:16] VITALS: BP 128/66; PULSE 82; TEMP 36.5; O2SAT 94
== END 2024-05-04 13:41 | disposition home or self-care (01) ==
PROVIDERS: PCP Internal Medicine; Visit Provider Internal Medicine
DX: S59.901A Unspecified injury of right elbow, initial encounter (principal)
CPT/HCPCS: 99214

== ENCOUNTER 2024-05-04 13:35 | Outpatient (REF) | payer MEDICARE, OTHER, SELFPAY ==
--- NOTE | ~2024-05-04 | XR_ITS ---
EXAMINATION: XR ELBOW, RIGHT CLINICAL INFORMATION: Right elbow injury COMPARISON: None available. TECHNIQUE: AP, lateral, and oblique views of the right elbow. FINDINGS: There is no evidence of fracture or dislocation. There is soft tissue swelling adjacent to olecranon consistent with the appearance of olecranon bursitis is no joint effusion. XR/XR elbow RT min 3V IMPRESSION: Olecranon bursitis
== END 2024-05-04 13:36 | disposition home or self-care (01) ==
LOC: HO.HMGCX 13:35
PROVIDERS: PCP Internal Medicine; Visit Provider Internal Medicine
DX: S59.901A Unspecified injury of right elbow, initial encounter (principal)
CPT/HCPCS: 73080

== ENCOUNTER 2024-05-18 15:05 | Outpatient (AMB) | payer MEDICARE, MEDICAID, SELFPAY ==
--- NOTE | 2024-05-18 15:14 | MHC.OFFVIS ---
Intake Visit Reasons: elevated PSA/BPH(Past Pt of Dr Hinds) Intake Note: Patient is present for ELEVATED PSA/BPH Urology Medication:TAMSULOSIN Antibiotic Allergy:NONE Blood Thinner:ELIQUIS today's pvr:0ml's Drywall Foreman Required: No Allergies divalproex sodium [Depakote] Allergy (Unknown, Verified 06/22/24 10:47) Unknown rosuvastatin Allergy (Unknown, Verified 06/22/24 10:47) SOB Medication List - Last Reconciled 05/18/24 by Siddharth Boss MD [shower chair As directed] acetaminophen 650 mg (2 x 325 mg) PO Q6H PRN 30 days albuterol sulfate 2.5 mg (3 mL) inhalation QID PRN 30 days albuterol sulfate 90 mcg/actuation 2 puffs PO Q6H PRN NS alprazolam 0.25 mg PO BEDTIME PRN amoxicillin 2,000 mg (4 x 500 mg) PO ONCE apixaban (Eliquis) 2.5 mg PO BID atorvastatin 80 mg PO DAILY bupropion HCl SR (Wellbutrin SR) 150 mg PO BID celecoxib (Celebrex) 200 mg PO DAILY clotrimazole-betamethasone 1-0.05 % 1 appl topical BID PRN cyanocobalamin (vitamin B-12) 1,000 mcg PO DAILY fluticasone propion-salmeterol 250-50 mcg/dose (Wixela Inhub) 1 inh inhalation BID 30 days fluticasone propionate 50 mcg/actuation 2 sprays intranasal DAILY gabapentin 300 mg PO TID 90 days miconazole nitrate 2% (Zeasorb AF) 1 appl topical BID PRN omeprazole 20 mg PO BID@0630,1630 tamsulosin 0.4 mg PO DAILY tramadol 50 mg PO Q4H PRN [WALKER As directed] HPI Comments Details: Stas is a pleasant male. He is a patient of Dr. Feldman. He is seen for the following urologic conditions - elevated PSA - lower urinary tract Effective voiding Good stream Bladder emptying Prior patient of Dr. Burgess Six-month follow-up PSA Lower tract symptoms PSA - 05/09 3.5, 06/11 5.0, 04/12 4.9 Current therapy tamsulosin PFSH Medical History Osteoarthritis of right hip Arthritis Abdominal hernia Numbness Cough Habitual snoring Atelectasis of left lung COPD (chronic obstructive pulmonary disease) Smoker Tinea cruris Pes anserinus bursitis of left knee Upper respiratory tract infection Rib fractures Annual physical exam Contusion of chest Back strain Osteoarthritis of right hip Right hip pain Right middle lobe pulmonary infiltrate SOB (shortness of breath) Sinus congestion Overweight (BMI 25.0-29.9) Urgency of micturition Carpal tunnel syndrome Femoral fracture Pulmonary nodule BPH (benign prostatic hyperplasia) Seizure disorder Insomnia Vitamin D deficiency Impaired glucose tolerance Hypercholesterolemia Anxiety GERD (gastroesophageal reflux disease) Polysubstance abuse Left subclavian artery occlusion Brain aneurysm CVA (cerebral vascular accident) Vocal cord polyp Vitamin B12 deficiency Surgical History History of nasal surgery H/O colonoscopy Stenosis of subclavian bypass History of surgery History of orthopedic surgery History of knee replacement procedure of right knee Family History Father CAD (coronary artery disease) Kidney malignancy Mother Myocardial infarction Brother Prostate cancer Social History (Updated 06/22/24 @ 09:59 by DARREN Isabel) Household Members: Other Household Members Other:: roomate Housing: Other Housing Other:: trailer Are you a primary career development engineer to a significant other at home: No Do you presently have visiting nurse or other home services: Yes (phlebotomy program coordinator) 75 years or older and lives alone: No Alcohol intake: current Alcohol intake frequency: 0-2 drinks per day Alcohol type: beer Comment: 4 drinks last night Patient Tobacco Use Status: Current everyday Tobacco user Tobacco use type: Cigarette Cigarette Packs Per Day: 0.5 Cigarettes Per Day: 6 Years Smoked: 50, stopped 12/29/2023 on chantix e-Cigarette/Vaping Use: Never Used Second Hand Smoke Exposure: Yes Substance Use Type: Marijuana service: No Current occupational status: unemployed Cognitive needs: No Hearing needs: No Vision needs: Yes Review of Systems Const Denies chills and Denies fever(s) Card Reports no additional complaints and Denies syncope Resp Denies cough GI Denies abdominal pain and Denies heartburn Reports as per HPI and Denies change in libido Neuro Denies syncope Psych Denies change in libido Endo Denies change in libido Physical Exam Const General: cooperative, healthy appearing, comfortable and no acute distress Orientation/consciousness: patient oriented x3 HEENT Face and sinus: Yes normal facial exam Mouth: moist mucous membranes Neck Neck: Yes normal visual inspection, Yes full ROM and Yes trachea midline Chest Chest palpation & inspection: normal inspection of the chest Resp Effort & Inspection: normal respiratory effort, able to speak in complete sentences and no respiratory distress GI Inspection: Yes normal to inspection Back/Spine/Pelvis Cervical Spine: normal cervical lordosis Thoracic/Lumbar Spine: thoracic and lumbar spine normal to inspection Skin General skin exam: no rashes or lesions noted Neuro General: patient oriented x3, gait normal, tone normal and moves all extremities Extrem General: Yes normal to inspection and Yes capillary refill normal Office Procedures Post Void Residual Post Residual Void Post Void Residual (PVR): 0 44442-Wxeg Void Residual by ultrasound Results AMB Urinalysis, Automated UA Leukoctes 0 Ronda/uL Last Edit by MADDIE Bettencourt on 05/18/24 15:31 UA Nitrite Negative Last Edit by MADDIE Bettencourt on 05/18/24 15:31 UA Urobilinogen 0.2 mg/dL Last Edit by MADDIE Bettencourt on 05/18/24 15:31 UA Protein 30 mg/dL Last Edit by MADDIE Bettencourt on 05/18/24 15:31 UA pH 6.0 Last Edit by MADDIE Bettencourt on 05/18/24 15:31 UA Blood 0 Robert/uL Last Edit by MADDIE Bettencourt on 05/18/24 15:31 UA Specific [place] 1.025 Last Edit by MADDIE Bettencourt on 05/18/24 15:31 UA Ketone Positive Last Edit by MADDIE Bettencourt on 05/18/24 15:31 UA Bilirubin 1 mg/dL Last Edit by MADDIE Bettencourt on 05/18/24 15:31 UA Glucose 0 mg/dL Last Edit by MADDIE Bettencourt on 05/18/24 15:31 Results Reviewed Results Reviewed: Laboratory Last Values Urine pH (Auto) 6.0 05/18/24 15:29 Specific [place] (Auto) 1.025 05/18/24 15:29 Urine Protein (Auto) 30 mg/dL 05/18/24 15:29 Glucose (UA)(Auto) 0 mg/dL 05/18/24 15:29 Urine Ketones (Auto) Positive 05/18/24 15:29 Urine Blood (Auto) 0 Robert/uL 05/18/24 15:29 Urine Nitrite (Auto) Negative 05/18/24 15:29 Urine Bilirubin (Auto) 1 mg/dL 05/18/24 15:29 Urine Urobilinogen (Auto) 0.2 mg/dL 05/18/24 15:29 Leukocyte Esterase (Auto) 0 Ronda/uL 05/18/24 15:29 Assessment & Plan Assessment & Plan (1) PSA elevation: Code(s): R97.20 - Elevated prostate specific antigen [PSA] Category: Medical Plan Six-month follow-up PSA Orders: Orders AMB Urinalysis Automated 05/18/24 Z13.9 - Encounter for screening, unspecified Prostate Specific Antigen 6 Months R97.20 - Elevated prostate specific antigen [PSA] Patient Instructions: Imaging studies, laboratory and physical exam results were discussed and reviewed in detail. No major barriers to patient understanding were identified. An opportunity to ask questions regarding the treatment plan was provided. All questions were answered. The patient expressed understanding and agreement with the above treatment plan. The patient is aware they should contact our office by phone for worsening of their current condition or the appearance of new urologic symptoms. Compliance is encouraged with any medications and followup testing that is ordered. It is a privilege to participate in the urologic care of your patient. If you have any questions or concerns regarding treatment for the above conditions, or other urologic issues, please do not hesitate to contact me. The office telephone contact is [phone]. This note is constructed using voice recognition software. While every effort has been made to ensure accuracy ramp and cargo supervisor errors may have been included. Yours sincerely, Dr Siddharth Boss MD, [facility] - Urology Providers of Expert, Compassionate Care for the Genitourinary System Coding Level of Care Code New Pt Level 4 (26317) Diagnoses PSA elevation R97.20 CPT Codes Post Residual Void - PVR CPT Code: 84123-Hbfp Void Residual by ultrasound ([id number])
== END 2024-05-18 15:59 | disposition home or self-care (01) ==
PROVIDERS: PCP Internal Medicine; Visit Provider Urology
DX: R97.20 Elevated prostate specific antigen [PSA] (principal)
CPT/HCPCS: 99204

== ENCOUNTER → 2024-05-18 15:05 | Outpatient (BNVA) | payer MEDICARE, OTHER, SELFPAY | PROVIDERS: PCP Internal Medicine; Visit Provider Urology | DX: R97.20 Elevated prostate specific antigen [PSA] (principal) | CPT/HCPCS: 51798; 81003; 99202 ==

== ENCOUNTER 2024-05-24 08:40 | Outpatient (REF) | payer MEDICARE, OTHER, SELFPAY | END 2024-05-24 08:41 | disposition home or self-care (01) | LOC: HO.HOSX 08:40 | PROVIDERS: Visit Provider Orthopaedic Surgery | DX: S50.01XA Contusion of right elbow, initial encounter (principal); Z96.641 Presence of right artificial hip joint | CPT/HCPCS: 99212 ==

== ENCOUNTER 2024-05-24 09:57 | Outpatient (AMB) | payer MEDICARE, SELFPAY ==
--- NOTE | 2024-05-24 10:12 | MHC.OFFVIS ---
Intake Visit Reasons: New Prob - Right Elbow Pain Intake Note: Stas is a 64 year old left hand dominant male who presents today for a new problem visit with complaints of right elbow pain. Patient reports that he was at [employer] on 05/04/24when he took a fall landing on the right elbow. Patient reports that he is having pain stiffness and significant tenderness to the elbow. He was seen at urgent care the day of the injury which were negative for fracture. Allergies divalproex sodium [Depakote] Allergy (Unknown, Verified 05/18/24 15:16) Unknown rosuvastatin Allergy (Unknown, Verified 05/18/24 15:16) SOB HPI HPI New Prob - Right Elbow Pain: Details: Stas fell about 2 weeks ago and has right elbow pain and right lateral hip pain. He states the hip pain is improving but the elbows bothering him. He had x-rays which were read as normal at an outside facility. He states he can move his elbow but it hurts. On his right hip the pain is lateral. [facility] Medical History Osteoarthritis of right hip Arthritis Abdominal hernia Numbness Cough Habitual snoring Atelectasis of left lung COPD (chronic obstructive pulmonary disease) Smoker Tinea cruris Pes anserinus bursitis of left knee Upper respiratory tract infection Rib fractures Annual physical exam Contusion of chest Back strain Osteoarthritis of right hip Right hip pain Right middle lobe pulmonary infiltrate SOB (shortness of breath) Sinus congestion Overweight (BMI 25.0-29.9) Urgency of micturition Carpal tunnel syndrome Femoral fracture Pulmonary nodule BPH (benign prostatic hyperplasia) Seizure disorder Insomnia Vitamin D deficiency Impaired glucose tolerance Hypercholesterolemia Anxiety GERD (gastroesophageal reflux disease) Polysubstance abuse Left subclavian artery occlusion Brain aneurysm CVA (cerebral vascular accident) Vocal cord polyp Vitamin B12 deficiency Surgical History History of nasal surgery H/O colonoscopy Stenosis of subclavian bypass History of surgery History of orthopedic surgery History of knee replacement procedure of right knee Family History Father CAD (coronary artery disease) Kidney malignancy Mother Myocardial infarction Brother Prostate cancer Social History Household Members: Other Household Members Other:: roomate Housing: Other Housing Other:: trailer Are you a primary critical care technician to a significant other at home: No Do you presently have visiting nurse or other home services: 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) 75 years or older and lives alone: No Alcohol intake: current Alcohol intake frequency: 0-2 drinks per day Alcohol type: beer Comment: 4 drinks last night Patient Tobacco Use Status: Current everyday Tobacco user Tobacco use type: Cigarette Cigarettes Per Day: 4 Years Smoked: 50, stopped 12/29/2023 on chantix e-Cigarette/Vaping Use: Never Used Second Hand Smoke Exposure: Yes Substance Use Type: Marijuana service: No Current occupational status: unemployed Cognitive needs: No Hearing needs: No Vision needs: Yes Physical Exam Extrem Other: Right elbow with 10 degree limitation of terminal flexion but full extension. Full supination and pronation. Moderate tenderness to palpation about the olecranon with no focal exquisite tenderness. Swollen olecranon bursa mild Trendelenburg gait on the right with tenderness to palpation over the greater trochanter Assessment & Plan Assessment & Plan (1) Contusion of right elbow: Code(s): S50.01XA - Contusion of right elbow, initial encounter Category: Medical Plan: Elbow contusion. Improving. No acute treatment warranted at this time (2) History of total right hip replacement: Comment: November 2023 Code(s): Z96.641 - Presence of right artificial hip joint Category: Surgical Plan: Improving tenderness over the greater trochanter. Improving on its own. Continue activity as tolerated. Orders: Orders XR pelvis 1-2V Today M25.559 - Pain in unspecified hip Coding Level of Care Code Est Pt Level 4 (70489) Diagnoses Contusion of right elbow S50.01XA History of total right hip replacement Z96.641
== END 2024-05-24 10:27 | disposition home or self-care (01) ==
PROVIDERS: PCP Internal Medicine; Visit Provider Orthopaedic Surgery
DX: S50.01XA Contusion of right elbow, initial encounter (principal); Z96.641 Presence of right artificial hip joint; W19.XXXA Unspecified fall, initial encounter
CPT/HCPCS: 99214

== ENCOUNTER 2024-06-22 09:44 | Outpatient (AMB) | payer MEDICARE, SELFPAY ==
--- NOTE | 2024-06-22 09:52 | MHC.PC.OV ---
Vital Signs 06/22/24 09:54 Height 5 ft 8 in Weight 197 lb 6 oz BMI 30.0 BP 130/70 Blood Pressure Location Rt brachial Position Sitting Pulse 91 Pulse Source Pulse Oximeter Pulse Oximetry (%) 95 Oxygen Delivery Method Room Air Intake Visit Reasons: Follow Up elbow injury Intake Note: Patient is here to follow up on right elbow injury. Carpet Installation Specialist Required: No Hand Hide Stretcher: Not Required per policy Accompanied by: Self / Same As Patient Allergies divalproex sodium [Depakote] Allergy (Unknown, Verified 06/22/24 10:47) Unknown rosuvastatin Allergy (Unknown, Verified 06/22/24 10:47) SOB Medication List - Last Reconciled 06/22/24 by Jonathan Ferraro MD [shower chair As directed] acetaminophen 650 mg (2 x 325 mg) PO Q6H PRN 30 days albuterol sulfate 2.5 mg (3 mL) inhalation QID PRN 30 days albuterol sulfate 90 mcg/actuation 2 puffs PO Q6H PRN NS alprazolam 0.25 mg PO BEDTIME PRN amoxicillin 2,000 mg (4 x 500 mg) PO ONCE apixaban (Eliquis) 2.5 mg PO BID atorvastatin 80 mg PO BEDTIME bupropion HCl SR (Wellbutrin SR) 150 mg PO BID celecoxib (Celebrex) 200 mg PO DAILY clotrimazole-betamethasone 1-0.05 % 1 appl topical BID PRN cyanocobalamin (vitamin B-12) 1,000 mcg PO DAILY fluticasone propion-salmeterol 250-50 mcg/dose (Wixela Inhub) 1 inh inhalation BID 30 days fluticasone propionate 50 mcg/actuation 2 sprays intranasal DAILY gabapentin 300 mg PO TID 90 days miconazole nitrate 2% (Zeasorb AF) 1 appl topical BID PRN omeprazole 20 mg PO BID@0630,1630 tamsulosin 0.4 mg PO DAILY tramadol 50 mg PO Q4H PRN [WALKER As directed] Tobacco use date assessed: 06/22/24 Fall risk assessment: No Falls in past year Last assessed Fall Risk: 06/22/24 Dental Screening Dental Screen Date: 12/31/23 HPI Follow Up elbow injury HPI Details 64-year-old male presents to the office for a sick visit. I am the covering physician as his regular physician is not available. Patient had a slip and fall at the [employer] store on May 04. He landed on his left elbow. He reports symptoms of pain and swelling since the fall. Patient has had x-rays at the urgent care and has seen an orthopedic surgeon. Continues to have discomfort around the olecranon bursa. [facility] Medical History Osteoarthritis of right hip Arthritis Abdominal hernia Numbness Cough Habitual snoring Atelectasis of left lung COPD (chronic obstructive pulmonary disease) Smoker Tinea cruris Pes anserinus bursitis of left knee Upper respiratory tract infection Rib fractures Annual physical exam Contusion of chest Back strain Osteoarthritis of right hip Right hip pain Right middle lobe pulmonary infiltrate SOB (shortness of breath) Sinus congestion Overweight (BMI 25.0-29.9) Urgency of micturition Carpal tunnel syndrome Femoral fracture Pulmonary nodule BPH (benign prostatic hyperplasia) Seizure disorder Insomnia Vitamin D deficiency Impaired glucose tolerance Hypercholesterolemia Anxiety GERD (gastroesophageal reflux disease) Polysubstance abuse Left subclavian artery occlusion Brain aneurysm CVA (cerebral vascular accident) Vocal cord polyp Vitamin B12 deficiency Surgical History History of nasal surgery H/O colonoscopy Stenosis of subclavian bypass History of surgery History of orthopedic surgery History of knee replacement procedure of right knee Family History Father CAD (coronary artery disease) Kidney malignancy Mother Myocardial infarction Brother Prostate cancer Social History (Updated 06/22/24 @ 09:59 by DARREN Isabel) Household Members: Other Household Members Other:: roomate Housing: Other Housing Other:: trailer Are you a primary career development coordinator/teacher to a significant other at home: No Do you presently have visiting nurse or 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 home 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) 75 years or older and lives alone: No Alcohol intake: current Alcohol intake frequency: 0-2 drinks per day Alcohol type: beer Comment: 4 drinks last night Patient Tobacco Use Status: Current everyday Tobacco user Tobacco use type: Cigarette Cigarette Packs Per Day: 0.5 Cigarettes Per Day: 6 Years Smoked: 50, stopped 12/29/2023 on chantix e-Cigarette/Vaping Use: Never Used Second Hand Smoke Exposure: Yes Substance Use Type: Marijuana service: No Current occupational status: unemployed Cognitive needs: No Hearing needs: No Vision needs: Yes Questionnaire Thrive Questionnaire Date Thrive assessed: 12/03/23 DANIE-7 AMB Questionnaire DANIE-7 Date DANIE - 7 assessed: 11/12/23 Source: Developed by Drs. Basilio Esteves, Gina Sales, Zev Ambriz and colleagues, with an educational teodoro from [employer]. Physical exam (Primary Care) Vital Signs: Last Vital Signs Pulse 91 06/22/24 09:54 BP 130/70 06/22/24 09:54 Pulse Ox 95 06/22/24 09:54 Oxygen Delivery Method Room Air 06/22/24 09:54 BMI result Body Mass Index 30.0 Tobacco/Smoking Status: Tobacco use Status Tobacco use date assessed 06/22/24 06/22/24 10:01 Patient Tobacco Use Status Current everyday Tobacco 06/22/24 10:01 Tobacco use type Cigarette 06/22/24 10:01 e-Cigarette/Vaping Use Never Used 06/22/24 10:01 Thrive Assessment: Date of Thrive Assessment Date Thrive assessed 12/03/23 06/22/24 10:01 Extrem Other: Right elbow: Full range of motion. Fullness in the olecranon bursa. Assessment and Plan Assessment & Plan (1) Bursitis: Code(s): M71.9 - Bursopathy, unspecified Plan: X-ray reports reviewed. Continue symptomatic treatment. Coding Level of Care Code Est Pt Level 3 (16703) Complex EM visit Add On G2211 Diagnoses Bursitis M71.9
[2024-06-22 09:54] VITALS: BP 130/70; PULSE 91; O2SAT 95
== END 2024-06-22 10:39 | disposition home or self-care (01) ==
PROVIDERS: PCP Internal Medicine; Visit Provider Internal Medicine
DX: M71.9 Bursopathy, unspecified (principal)
CPT/HCPCS: 99213; G2211

== ENCOUNTER 2024-08-06 10:29 | Outpatient (REF) | payer MEDICARE, OTHER, SELFPAY ==
--- NOTE | ~2024-08-06 | XR_ITS ---
EXAMINATION: XR CHEST CLINICAL INFORMATION: Cough, unspecified COMPARISON: July 2023. TECHNIQUE: 2 views of the chest were obtained. FINDINGS: Increased curvilinear atelectasis appears near the minor fissure. Mild increased curvilinear atelectasis at the medial right base. Scarring and emphysematous changes particularly at the right upper lung. There is some elevation of the left diaphragm. Increased linear atelectasis toward the left base. The hilar regions and pulmonary vascularity appear to be stable. No new dominant consolidations. There are postsurgical changes near the left thoracic inlet. There is some blunting observed in the left posterior sulcus suggesting a pleural effusion or pleural reaction. XR/XR chest 2V IMPRESSION: Increased atelectatic changes near the medial right base and near the minor fissure. Some elevation of the left diaphragm with increased linear atelectasis toward the left base. Findings suggestive of a left posterior sulcus effusion or pleural reaction. Electronically signed by: Rey Castillo MD 08/06/2024 04:37 PM EDT
== END 2024-08-06 10:30 | disposition home or self-care (01) ==
LOC: HO.XRAY 10:29
PROVIDERS: PCP Internal Medicine
DX: J44.9 Chronic obstructive pulmonary disease, unspecified (principal); R06.02 Shortness of breath; R05.9 Cough, unspecified; Z87.891 Personal history of nicotine dependence
CPT/HCPCS: 71046; 99212

== ENCOUNTER 2024-08-06 10:29 | Outpatient (AMB) | payer MEDICARE, SELFPAY ==
[2024-08-06 10:32] VITALS: BP 90/58; PULSE 83; O2SAT 95; BMI 29.6
--- NOTE | 2024-08-06 10:32 | A.OFFPC_ITS ---
Vital Signs 08/06/24 10:32 Height 5 ft 8 in Weight 195 lb BMI 29.6 BP 90/58 L Blood Pressure Location Lt brachial Position Sitting Pulse 83 Pulse Source Pulse Oximeter Pulse Oximetry (%) 95 Oxygen Delivery Method Room Air Intake Visit Reasons: [facility] 07/25 pneumonia Intake Note: Patient is here for hospital discharge follow up. Patient was discharged from [facility] on 08/04/2024 Die Tripper Required: No Allergies divalproex sodium [Depakote] Allergy (Unknown, Verified 08/06/24 10:40) Unknown rosuvastatin Allergy (Unknown, Verified 08/06/24 10:40) SOB Medication List - Last Reconciled 08/06/24 by Isa Meza PA-C [shower chair As directed] acetaminophen 650 mg (2 x 325 mg) PO Q6H PRN 30 days albuterol sulfate 2.5 mg (3 mL) inhalation QID PRN 30 days albuterol sulfate 90 mcg/actuation 2 puffs PO Q6H PRN NS alprazolam 0.25 mg PO BEDTIME PRN amoxicillin 2,000 mg (4 x 500 mg) PO ONCE apixaban (Eliquis) 2.5 mg PO BID atorvastatin 80 mg PO BEDTIME bupropion HCl SR (Wellbutrin SR) 150 mg PO BID celecoxib (Celebrex) 200 mg PO DAILY clotrimazole-betamethasone 1-0.05 % 1 appl topical BID PRN cyanocobalamin (vitamin B-12) 1,000 mcg PO DAILY fluticasone propion-salmeterol 250-50 mcg/dose (Wixela Inhub) 1 inh inhalation BID 30 days fluticasone propionate 50 mcg/actuation 2 sprays intranasal DAILY gabapentin 300 mg PO TID 90 days miconazole nitrate 2% (Zeasorb AF) 1 appl topical BID PRN omeprazole 20 mg PO BID@0630,1630 tamsulosin 0.4 mg PO DAILY tramadol 50 mg PO Q4H PRN [WALKER As directed] Tobacco use date assessed: 06/22/24 Fall risk assessment: No Falls in past year Last assessed Fall Risk: 08/06/24 Dental Screening Dental Screen Date: 12/31/23 HPI [facility] 07/25 pneumonia HPI Details 64-year-old obese male smoker with GERD hypercholesterolemia impaired glucose tolerance BPH coming in for hospital follow-up. In review of the notes, patient was seen in [facility] for two days of difficulty breathing 1 day s/p carotid bypass. Patient was placed on CPAP by EMS and given nebulizer while in the ED and hemodynamically stable. Weaned from BiPAP to nasal cannula CTA reveals stent of left common carotid artery remaining patent. CT chest concerning for pneumonia patient was started on Zosyn and vancomycin and admitted for 5 days for acute hypoxic respiratory failure. Upon discharge from [facility] they recommended pulmonary rehab however patient is still on restrictions status post bypass. He still feels shortness of breath and is using Acapella, nebulizers, and incentive spirometer. He feels his shortness of breath has improved greatly since discharge from the hospital and is no longer taking antibiotics or prednisone. Previously was unable to go for walks and more recently has been able to tolerate walking longer distances. He quit smoking 18 days ago. He had an appointment with vascular surgery yesterday and no concerns were mentioned. [facility] Medical History (Updated 08/06/24 @ 13:04 by Isa Meza PA-C) Osteoarthritis of right hip Arthritis Abdominal hernia Numbness Cough Habitual snoring Atelectasis of left lung COPD (chronic obstructive pulmonary disease) Smoker Tinea cruris Pes anserinus bursitis of left knee Upper respiratory tract infection Rib fractures Annual physical exam Contusion of chest Back strain Osteoarthritis of right hip Right hip pain Right middle lobe pulmonary infiltrate SOB (shortness of breath) Sinus congestion Overweight (BMI 25.0-29.9) Urgency of micturition Carpal tunnel syndrome Femoral fracture Pulmonary nodule BPH (benign prostatic hyperplasia) Seizure disorder Insomnia Vitamin D deficiency Impaired glucose tolerance Hypercholesterolemia Anxiety GERD (gastroesophageal reflux disease) Polysubstance abuse Left subclavian artery occlusion Brain aneurysm CVA (cerebral vascular accident) Vocal cord polyp Vitamin B12 deficiency Surgical History History of nasal surgery H/O colonoscopy Stenosis of subclavian bypass History of surgery History of orthopedic surgery History of knee replacement procedure of right knee Family History Father CAD (coronary artery disease) Kidney malignancy Mother Myocardial infarction Brother Prostate cancer Social History (Updated 06/22/24 @ 09:59 by DARREN Isabel) Household Members: Other Household Members Other:: roomate Housing: Other Housing Other:: trailer Are you a primary career development associate to a significant other at home: No Do you presently have visiting nurse or 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 home 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 and lives alone: No Alcohol intake: current Alcohol intake frequency: 0-2 drinks per day Alcohol type: beer Comment: 4 drinks last night Patient Tobacco Use Status: Former Tobacco user Tobacco use type: Cigarette Cigarette Packs Per Day: 0.5 Cigarettes Per Day: 6 Years Smoked: 50, stopped 12/29/2023 on chantix e-Cigarette/Vaping Use: Never Used Second Hand Smoke Exposure: Yes Substance Use Type: Marijuana service: No Current occupational status: unemployed Cognitive needs: No Hearing needs: No Vision needs: Yes Questionnaire Thrive Questionnaire Date Thrive assessed: 12/03/23 AUDIT C Alcohol Use Questionnaire (AUDIT-C) 1. How often do you have a drink containing alcohol?: 2-4 times a month 2. How many drinks containing alcohol do you have on a typical day when you are drinking?: 1 or 2 3. How often do you have six or more drinks on one occasion?: Never Total Score: 2 DANIE-7 AMB Questionnaire DANIE-7 Date DANIE - 7 assessed: 11/12/23 Source: Developed by Drs. Basilio Esteves, Gina Sales, Zev Ambriz and colleagues, with an educational teodoro from [employer]. Review of Systems Const Denies body aches, Denies chills, Denies fever(s) and Denies headache(s) Eyes Reports no additional complaints ENT Denies dizziness and Denies headache(s) Card Denies chest pain, Denies edema, Denies irregular heart rhythm and Denies lightheadedness Resp Denies cough GI Denies abdominal pain, Denies constipation, Denies diarrhea, Denies nausea and Denies vomiting Reports no additional complaints Musc Reports no additional complaints and Denies abnormal gait Skin/Breast Reports system reviewed and no additional complaints, except as documented Neuro Denies abnormal gait, Denies dizziness and Denies headache(s) Psych Reports no additional complaints Physical exam (Primary Care) Vital Signs: Last Vital Signs Pulse 83 08/06/24 10:32 BP 90/58 L 08/06/24 10:32 Pulse Ox 95 08/06/24 10:32 Oxygen Delivery Method Room Air 08/06/24 10:32 BMI result Body Mass Index 29.6 Tobacco/Smoking Status: Tobacco use Status Tobacco use date assessed 06/22/24 08/06/24 10:40 Patient Tobacco Use Status Former Tobacco user 08/06/24 10:40 Tobacco use type Cigarette 08/06/24 10:40 e-Cigarette/Vaping Use Never Used 08/06/24 10:40 Thrive Assessment: Date of Thrive Assessment Date Thrive assessed 12/03/23 08/06/24 10:40 Const General: cooperative, healthy appearing, comfortable and no acute distress Orientation/consciousness: patient oriented x3 HENMT Head: Yes normocephalic Ears: hearing grossly normal bilaterally General nose exam: Normal external nose present Eyes General: appearance normal, both eyes and all related structures Conjunctivae: conjunctivae normal Neck Neck: Yes full ROM and Yes no lymphadenopathy Resp Effort & Inspection: normal respiratory effort Auscultation: clear to auscultation bilaterally, no crackles, no rales, no rhonchi and no wheezes Cardio Rate: regular rate Rhythm: regular rhythm Skin General skin exam: no rashes or lesions noted Neuro General: patient oriented x3 Gait exam (Neuro): Normal gait present Extrem General: Yes normal to inspection, Yes full ROM and No edema Psych Affect: normal affect Attitude: cooperative Insight: Good insight present (Psych) Judgement: Good judgement present (Psych) Coding Level of Care Code Est Pt Level 3 (52661) Diagnoses Cough R05.9 Tobacco abuse Z72.0 COPD (chronic obstructive pulmonary disease) J44.9 Assessment & Plan Assessment & Plan (1) Cough: Code(s): R05.9 - Cough, unspecified Category: Medical Plan: Patient continues to have shortness of breath and occasional cough. Reordered for chest x-ray to evaluate for pneumonia resolution. Continue with incentive spirometry, nebulizers, and use of Acapella. Discussed red flag symptoms of pneumonia and when to present for re-evaluation. (2) Tobacco abuse: Code(s): Z72.0 - Tobacco use Category: Medical Plan: Patient states he stopped smoking 18 days ago and has not had cigarette. Discussed nicotine replacement therapy which has declined. (3) COPD (chronic obstructive pulmonary disease): Comment: PATIENT HAS MILD TO MODERATE DEGREE OF CHRONIC OBSTRUCTIVE PULMONARY DISEASE. SEEMS TO BE. STABLE AND CONTROLLED AT THIS TIME. COMPLAINS OF INTERMITTENT COUGH PROBABLY RELATED TO SMOKING. Code(s): J44.9 - Chronic obstructive pulmonary disease, unspecified Category: Medical Plan: Continue to use nebulizers and incentive spirometry. Plan This note was constructed using voice recognition software. While every effort has been made to ensure accuracy and casino operations supervisor, still areas may have been included sometimes these areas may affect the content or meeting of the given symptoms. Total time spent caring for the patient today was 30 minutes. This includes time spent before the visit reviewing the chart, time spent during the visit, and time spent after the visit and documentation. Orders: Orders XR chest 2V Today R05.9 - Cough, unspecified Medications: New tizanidine 2 mg PO Q8H PRN 14 tabs 0RF muscle spasticity
== END 2024-08-06 11:04 | disposition home or self-care (01) ==
PROVIDERS: PCP Internal Medicine
DX: R05.9 Cough, unspecified (principal); Z72.0 Tobacco use; J44.9 Chronic obstructive pulmonary disease, unspecified

== ENCOUNTER 2024-08-11 10:55 | Outpatient (AMB) | payer MEDICARE, SELFPAY ==
[2024-08-11 11:22] VITALS: BP 110/60; PULSE 80; O2SAT 95; BMI 29.8
--- NOTE | 2024-08-11 11:22 | A.OFFVIS_ITS ---
Vital Signs 08/11/24 11:22 Height 5 ft 8 in Weight 196 lb 3.382 oz BMI 29.8 BP 110/60 Blood Pressure Location Lt brachial Position Sitting Pulse 80 Pulse Source Pulse Oximeter Pulse Oximetry (%) 95 Oxygen Delivery Method Room Air Intake Visit Reasons: COPD Intake Note: pt is here for follow up and states he had surgery and post surgery he had pneumonia, copd, bronchitis. today he feels better but still winded at times. 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 Allergies divalproex sodium [Depakote] Allergy (Unknown, Verified 08/11/24 11:34) Unknown rosuvastatin Allergy (Unknown, Verified 08/11/24 11:34) SOB Medication List - Last Reconciled 08/11/24 by Rey Oneil MD [shower chair As directed] acetaminophen 650 mg (2 x 325 mg) PO Q6H PRN 30 days albuterol sulfate 2.5 mg (3 mL) inhalation QID PRN 30 days albuterol sulfate 90 mcg/actuation 2 puffs PO Q6H PRN NS alprazolam 0.25 mg PO BEDTIME PRN amoxicillin 2,000 mg (4 x 500 mg) PO ONCE apixaban (Eliquis) 2.5 mg PO BID atorvastatin 80 mg PO BEDTIME bupropion HCl SR (Wellbutrin SR) 150 mg PO BID celecoxib (Celebrex) 200 mg PO DAILY clotrimazole-betamethasone 1-0.05 % 1 appl topical BID PRN cyanocobalamin (vitamin B-12) 1,000 mcg PO DAILY fluticasone propion-salmeterol 250-50 mcg/dose 1 inh inhalation BID fluticasone propionate 50 mcg/actuation 2 sprays intranasal DAILY gabapentin 300 mg PO TID 90 days miconazole nitrate 2% (Zeasorb AF) 1 appl topical BID PRN omeprazole 20 mg PO BID@0630,1630 tamsulosin 0.4 mg PO DAILY tizanidine 2 mg PO Q8H PRN tramadol 50 mg PO Q4H PRN [WALKER As directed] Do you need a note to return to daycare/school/sports/work: No HPI HPI COPD: Details: THIS 64 YEARS OLD GENTLEMAN WITH PAST HISTORY OF COPD/BRONCHIAL ASTHMA IS COMING AFTER A LONG WHILE FOR FOLLOW-UP. RECENTLY HE WAS ADMITTED AT [facility] WITH AN ACUTE EXACERBATION OF COPD. TREATED WITH IV SOLU-MEDROL, ANTIBIOTICS, DUONEB UPDRAFTS AND GOT BETTER. AFTER DISCHARGE HIS PREDNISONE HAS BEEN TAPERED DOWN OVER 2-3 DAYS. HE CLAIMS THAT HE HAS NOT SMOKED SINCE HIS ADMISSION, AND INTENDS NOT TO GO BACK TO SMOKING. TRELEGY ELLIPTA ONCE A DAY HAS BEEN CHANGED TO FLUTICASONE-SALMETEROL 250-51 INHALATION B.I.D., AND HE IS ADVISED TO USE ALBUTEROL IN THE UPDRAFT OR ALBUTEROL HFA P.R.N.. 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 HE HAS MILD RESIDUAL SWELLING OF THE LEFT SIDE OF THE FACE. HE CLAIMS THAT HIS BREATHING IS BETTER THAN BEFORE AND HE HAS ONLY MILD INTERMITTENT COUGH, DENIES ANY WHEEZING. HOWEVER HE GETS SHORT OF BREATH EASILY AND AT [facility] HE IS WAS ADVISED TO JOIN PULMONARY REHAB PROGRAM. [facility] Medical History Osteoarthritis of right hip Arthritis Abdominal hernia Numbness Cough Habitual snoring Atelectasis of left lung COPD (chronic obstructive pulmonary disease) Smoker Tinea cruris Pes anserinus bursitis of left knee Upper respiratory tract infection Rib fractures Annual physical exam Contusion of chest Back strain Osteoarthritis of right hip Right hip pain Right middle lobe pulmonary infiltrate SOB (shortness of breath) Sinus congestion Overweight (BMI 25.0-29.9) Urgency of micturition Carpal tunnel syndrome Femoral fracture Pulmonary nodule BPH (benign prostatic hyperplasia) Seizure disorder Insomnia Vitamin D deficiency Impaired glucose tolerance Hypercholesterolemia Anxiety GERD (gastroesophageal reflux disease) Polysubstance abuse Left subclavian artery occlusion Brain aneurysm CVA (cerebral vascular accident) Vocal cord polyp Vitamin B12 deficiency Surgical History History of nasal surgery H/O colonoscopy Stenosis of subclavian bypass History of surgery History of orthopedic surgery History of knee replacement procedure of right knee Family History Father CAD (coronary artery disease) Kidney malignancy Mother Myocardial infarction Brother Prostate cancer Social History Household Members: Other Household Members Other:: roomate Housing: Other Housing Other:: trailer Are you a primary caregiver assisted living to a significant other at home: No 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 and lives alone: No Alcohol intake: current Alcohol intake frequency: 0-2 drinks per day Alcohol type: beer Comment: 4 drinks last night Patient Tobacco Use Status: Former Tobacco user Tobacco use type: Cigarette Cigarette Packs Per Day: 0.5 Cigarettes Per Day: 6 Years Smoked: 50, stopped 12/29/2023 on chantix e-Cigarette/Vaping Use: Never Used Second Hand Smoke Exposure: Yes Substance Use Type: Marijuana service: No Current occupational status: unemployed Cognitive needs: No Hearing needs: No Vision needs: Yes Review of Systems Const All systems reviewed & are unremarkable except as noted in HPI and below Eyes Reports no additional complaints ENT Reports no additional complaints Card Denies chest pain, Denies irregular heart rhythm and Denies leg edema Resp Reports as per HPI GI Reports constipation and Reports heartburn Reports no additional complaints Musc Reports arthralgias (HIPS) Skin/Breast Reports system reviewed and no additional complaints, except as documented Neuro Reports no additional complaints Psych Reports no additional complaints Endo Reports no additional complaints Sarkis/Lymph Reports no additional complaints Physical Exam Vital Signs: Last Vital Signs Pulse 80 08/11/24 11:22 BP 110/60 08/11/24 11:22 Pulse Ox 95 08/11/24 11:22 Oxygen Delivery Method Room Air 08/11/24 11:22 BMI result Body Mass Index 29.8 Const General: comfortable, no acute distress, alert and awake Orientation/consciousness: patient oriented x3 HEENT Head: Yes normal to inspection General nose exam: No nasal polyps present and No nasal discharge present Face and sinus: Yes sinuses nontender Mouth: oropharynx normal Throat: Yes posterior oropharynx normal Eyes General: appearance normal, both eyes and all related structures Neck Other: SCAR ON THE LEFT SIDE FROM PREVIOUS CAROTID ENDARTERECTOMIES RECENT REVISION OF THE SURGERY. Neck: Yes normal visual inspection, Yes no lymphadenopathy, Yes trachea midline and Yes no JVD Thyroid: Thyroid normal Chest Chest palpation & inspection: normal inspection of the chest (HIS SURGICAL SCAR IN THE LEFT PECTORAL AREA FROM RECENT VASCULAR SURGERY), normal palpation of entire chest wall and no tenderness Resp Other: PERCUSSION NOTE IS RESONANT, BREATH SOUNDS ARE SLIGHTLY DISTANT AND ESPECIALLY DECREASED OVER. THE BASILAR AREAS NO CREPITATIONS OR WHEEZES ARE HEARD TODAY . Cardio Palpation: normal PMI Rate: regular rate Rhythm: regular rhythm Heart sounds: no gallops and no murmurs GI Palpation (GI): Soft to palpation, nontender, No hepatosplenomegaly present and no masses Auscultation: normal bowel sounds Back/Spine/Pelvis Thoracic/Lumbar Spine: thoracic and lumbar spine normal to inspection Skin General skin exam: no rashes or lesions noted Neuro General: patient oriented x3 and no focal motor deficits Cranial nerves: Yes CN's II-XII intact bilaterally Extrem General: Yes normal to inspection, Yes no clubbing, cyanosis or edema and Yes no calf tenderness Psych Appearance: grossly normal and well kempt Speech and movement: Normal speech and movement present Assessment & Plan Assessment & Plan (1) COPD (chronic obstructive pulmonary disease): Comment: PATIENT HAS MILD TO MODERATE DEGREE OF CHRONIC OBSTRUCTIVE PULMONARY DISEASE. HAS BEEN TREATED FOR ACUTE EXACERBATION OF COPD AT [facility]. NOW SEEMS TO BE STABLE AND CONTROLLED AT THIS TIME. HAS MILD INTERMITTENT COUGH. Code(s): J44.9 - Chronic obstructive pulmonary disease, unspecified Category: Medical Plan: CONTINUE TO USE FLUTICASONE-SALMETEROL 1 INHALATION B.I.D. AND ALBUTEROL HFA 2 PUFFS Q 6 HOURS P.R.N. OR ALTERNATIVELY ALBUTEROL SOLUTION IN THE NEBULIZER Q.6 HOURS P.R.N. PULMONARY FUNCTION TEST IS ORDERED AND AFTER THAT PLAN IS TO REFER HIM FOR PULMONARY REHAB PROGRAM. (2) Smoker: Comment: HE DOES HAVE LONGSTANDING HISTORY OF SMOKING, SAYS THAT HE HAS NOT SMOKED FOR THE LAST 2 AND HALF WEEKS AND PLANS TO ADHERE WITH COMPLETE QUITTING. Code(s): F17.200 - Nicotine dependence, unspecified, uncomplicated Category: Social Hx Plan: COMMENDED FOR NOT SMOKING AND STRESS THAT HE SHOULD NOT GO BACK TO THIS HABIT. Orders: Orders PFT pulmonary function test Today F17.200 - Nicotine dependence, unspecified, uncomplicated, J44.9 - Chronic obstructive pulmonary disease, unspecified Coding Level of Care Code Est Pt Level 3 (41989) Diagnoses COPD (chronic obstructive pulmonary disease) J44.9 Smoker F17.200
== END 2024-08-11 13:07 | disposition home or self-care (01) ==
PROVIDERS: PCP Internal Medicine; Visit Provider Internal Medicine
DX: J44.9 Chronic obstructive pulmonary disease, unspecified (principal); F17.200 Nicotine dependence, unspecified, uncomplicated
CPT/HCPCS: 99213

== ENCOUNTER → 2024-08-11 10:55 | Outpatient (BNVA) | payer MEDICARE, SELFPAY | PROVIDERS: PCP Internal Medicine; Visit Provider Internal Medicine | DX: J44.9 Chronic obstructive pulmonary disease, unspecified (principal); F17.210 Nicotine dependence, cigarettes, uncomplicated | CPT/HCPCS: 99212 ==

== ENCOUNTER 2024-09-02 10:36 | Outpatient (AMB) | payer MEDICARE, SELFPAY ==
--- NOTE | 2024-09-02 10:37 | A.OFFPC_ITS ---
Vital Signs 09/02/24 10:38 Height 5 ft 8 in Weight 201 lb 0.6 oz BMI 30.6 BP 102/60 Blood Pressure Location Lt brachial Position Sitting Pulse Source Pulse Oximeter Oxygen Delivery Method Room Air Intake Visit Reasons: Smoker, COPD Allergies divalproex sodium [Depakote] Allergy (Unknown, Verified 09/02/24 10:43) Unknown rosuvastatin Allergy (Unknown, Verified 09/02/24 10:43) SOB Medication List - Last Reconciled 09/02/24 by Zuri Feldman MD [shower chair As directed] acetaminophen 650 mg (2 x 325 mg) PO Q6H PRN 30 days albuterol sulfate 2.5 mg (3 mL) inhalation QID PRN 30 days albuterol sulfate 90 mcg/actuation 2 puffs PO Q6H PRN NS alprazolam 0.25 mg PO BEDTIME PRN amoxicillin 2,000 mg (4 x 500 mg) PO ONCE apixaban (Eliquis) 2.5 mg PO BID aspirin 81 mg PO DAILY atorvastatin 80 mg PO BEDTIME bupropion HCl SR (Wellbutrin SR) 150 mg PO BID celecoxib (Celebrex) 200 mg PO DAILY clotrimazole-betamethasone 1-0.05 % 1 appl topical BID PRN cyanocobalamin (vitamin B-12) 1,000 mcg PO DAILY fluticasone propion-salmeterol 250-50 mcg/dose 1 inh inhalation BID fluticasone propionate 50 mcg/actuation 2 sprays intranasal DAILY gabapentin 300 mg PO TID 90 days miconazole nitrate 2% (Zeasorb AF) 1 appl topical BID PRN omeprazole 20 mg PO BID@0630,1630 tamsulosin 0.4 mg PO DAILY tizanidine 2 mg PO Q8H PRN tramadol 50 mg PO Q4H PRN [WALKER As directed] Tobacco use date assessed: 06/22/24 Fall risk assessment: No Falls in past year Last assessed Fall Risk: 09/02/24 Dental Screening Dental Screen Date: 12/31/23 HPI Smoker, COPD HPI Details 64-year-old obese male smoker with COPD, GERD hypercholesterolemia impaired glucose tolerance BPH history of CVA with some subclavian left artery occlusion generalized anxiety disorder coming in for follow-up. Last seen in 08/06/2024 having a cough. Patient's last colonoscopy was 2017 with tubular adenoma. Review of the notes hospital discharge 07/25/2024 COPD exacerbation with hypoxemic respiratory failure patient was seen by the Pulmonary August 16. Had a recent vascular surgery for the subclavian steal syndrome.. Patient continuing with fluticasone/salmeterol twice a day with albuterol inhaler as needed advised pulmonary rehab program.. In June patient was seen in the office for elbow injury diagnosis bursitis. Patient did see Orthopedics fall with right elbow pain. With the PSA elevation patient was sent to urology seen in May 18 continue to monitor. had the L neck surgery under Dr. Herrera and doing good had pneumonia is better - has not quit smoking totally [facility] Medical History (Updated 09/02/24 @ 11:12 by Zuri Feldman MD) COPD (chronic obstructive pulmonary disease) Osteoarthritis of right hip Arthritis Abdominal hernia Numbness Habitual snoring Atelectasis of left lung COPD (chronic obstructive pulmonary disease) Tinea cruris Pes anserinus bursitis of left knee Upper respiratory tract infection Rib fractures Annual physical exam Contusion of chest Back strain Osteoarthritis of right hip Right hip pain Right middle lobe pulmonary infiltrate SOB (shortness of breath) Sinus congestion Overweight (BMI 25.0-29.9) Urgency of micturition Carpal tunnel syndrome Femoral fracture Pulmonary nodule BPH (benign prostatic hyperplasia) Seizure disorder Insomnia Vitamin D deficiency Impaired glucose tolerance Hypercholesterolemia Anxiety GERD (gastroesophageal reflux disease) Polysubstance abuse Left subclavian artery occlusion Brain aneurysm CVA (cerebral vascular accident) Vocal cord polyp Vitamin B12 deficiency Surgical History History of nasal surgery H/O colonoscopy Stenosis of subclavian bypass History of surgery History of orthopedic surgery History of knee replacement procedure of right knee Family History Father CAD (coronary artery disease) Kidney malignancy Mother Myocardial infarction Brother Prostate cancer Social History Household Members: Other Household Members Other:: roomate Housing: Other Housing Other:: trailer Are you a primary manager managed care to a significant other at home: No Do you presently have 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 and lives alone: No Alcohol intake: current Alcohol intake frequency: 0-2 drinks per day Alcohol type: beer Comment: 4 drinks last night Patient Tobacco Use Status: Former Tobacco user Tobacco use type: Cigarette Cigarette Packs Per Day: 0.5 Cigarettes Per Day: 6 Years Smoked: 50, stopped 12/29/2023 on chantix Packs Per Year: 0 Packs per year/per ci.00 e-Cigarette/Vaping Use: Never Used Second Hand Smoke Exposure: Yes Substance Use Type: Marijuana service: No Current occupational status: unemployed Cognitive needs: No Hearing needs: No Vision needs: Yes Questionnaire Thrive Questionnaire Date Thrive assessed: 12/03/23 AUDIT C Alcohol Use Questionnaire (AUDIT-C) 2. How many drinks containing alcohol do you have on a typical day when you are drinking?: 3 or 4 3. How often do you have six or more drinks on one occasion?: Never Total Score: 1 DANIE-7 AMB Questionnaire DANIE-7 Date DANIE - 7 assessed: 11/12/23 Source: Developed by Drs. Basilio Esteves, Gina Sales, Zev Ambriz and colleagues, with an educational teodoro from [employer]. Physical exam (Primary Care) Vital Signs: Last Vital Signs BP 102/60 09/02/24 10:38 Oxygen Delivery Method Room Air 09/02/24 10:38 BMI result Body Mass Index 30.6 Tobacco/Smoking Status: Tobacco use Status Tobacco use date assessed 06/22/24 09/02/24 10:37 Patient Tobacco Use Status Former Tobacco user 09/02/24 10:37 Tobacco use type Cigarette 09/02/24 10:37 e-Cigarette/Vaping Use Never Used 09/02/24 10:37 Thrive Assessment: Date of Thrive Assessment Date Thrive assessed 12/03/23 09/02/24 10:37 Const General: alert; No acute distress Eyes Conjunctivae: conjunctivae normal Resp Auscultation: clear to auscultation bilaterally Cardio Rate: regular rate Rhythm: regular rhythm GI Inspection: Yes normal to inspection Extrem General: Yes normal to inspection and No edema Coding Level of Care Code Est Pt Level 4 (69948) Complex EM visit Add On G2211 Diagnoses PSA elevation R97.20 Tobacco abuse Z72.0 Obesity (BMI 30.0-34.9) E66.9 Generalized anxiety disorder F41.1 Impaired glucose tolerance R73.02 Benign prostatic hyperplasia with urinary frequency N40.1; R35.0 Lower urinary tract symptom presence: symptoms present Lower urinary tract symptom detail: urinary frequency Hypercholesterolemia E78.00 Pulmonary emphysema, unspecified emphysema type J43.9 COPD type: emphysema Emphysema type: unspecified Left subclavian artery occlusion I70.8 Olecranon bursitis of right elbow M70.21 Tubular adenoma of colon D12.6 Assessment & Plan Assessment & Plan (1) PSA elevation: Code(s): R97.20 - Elevated prostate specific antigen [PSA] Category: Medical Plan: Patient being followed up by Urology (2) Tobacco abuse: Code(s): Z72.0 - Tobacco use Category: Medical Plan: Patient is strongly advised to stop smoking! (3) Obesity (BMI 30.0-34.9): Code(s): E66.9 - Obesity, unspecified Category: Medical Plan: Diet and exercise (4) Generalized anxiety disorder: Comment: decline counselling Code(s): F41.1 - Generalized anxiety disorder Category: Medical Plan: Continue with present medication as needed (5) Impaired glucose tolerance: Code(s): R73.02 - Impaired glucose tolerance (oral) Category: Medical Plan: Decrease the amount of carbohydrate intake, pasta, bread, rice and potatoes are all sugar and that is aside from all the sweet stuff, remember that fruits are good but they are Sweet also. (6) BPH (benign prostatic hyperplasia): Code(s): N40.0 - Benign prostatic hyperplasia without lower urinary tract symptoms Category: Medical Qualifiers: Lower urinary tract symptom presence: symptoms present Lower urinary tract symptom detail: urinary frequency Qualified Code(s): N40.1 - Benign prostatic hyperplasia with lower urinary tract symptoms; R35.0 - Frequency of micturition Plan: Continue with tamsulosin. (7) Hypercholesterolemia: Code(s): E78.00 - Pure hypercholesterolemia, unspecified Category: Medical Plan: Avoid fried foods, chicken skin, eggs, butter margarine, pastries and meat. Be it pork or beef they have a lot of cholesterol LDL goal of less than 70 and triglyceride of less than 150. Patient does take atorvastatin 80 mg once a day (8) COPD (chronic obstructive pulmonary disease): Comment: PATIENT HAS MILD TO MODERATE DEGREE OF CHRONIC OBSTRUCTIVE PULMONARY DISEASE. HAS BEEN TREATED FOR ACUTE EXACERBATION OF COPD AT [facility]. NOW SEEMS TO BE STABLE AND CONTROLLED AT THIS TIME. HAS MILD INTERMITTENT COUGH. Code(s): J44.9 - Chronic obstructive pulmonary disease, unspecified Category: Medical Qualifiers: COPD type: emphysema Emphysema type: unspecified Qualified Code(s): J43.9 - Emphysema, unspecified Plan: Patient being followed up by Pulmonary placed on salmeterol/fluticasone albuterol inhaler/nebulizer (9) Left subclavian artery occlusion: Comment: 2015 with bypass May 2016 Dr. Durbin, 06/2024 dr. Herrera Code(s): I70.8 - Atherosclerosis of other arteries Category: Medical Plan: Patient just had a procedure under Dr. Herrera, will await for notes. Complains of some numbness in the area which may last for long time but will need follow- up with them. (10) Olecranon bursitis of right elbow: Code(s): M70.21 - Olecranon bursitis, right elbow Category: Medical Plan: advised to see ortho (11) Tubular adenoma of colon: Comment: 2017 Dr. Weir Code(s): D12.6 - Benign neoplasm of colon, unspecified Category: Medical Plan: patient is aware and will see in October Orders: Orders Comprehensive Met. Panel Today J44.9 - Chronic obstructive pulmonary disease, unspecified Lipid Panel Today E78.00 - Pure hypercholesterolemia, unspecified, J44.9 - Chronic obstructive pulmonary disease, unspecified Vitamin B12 and Folate Today J44.9 - Chronic obstructive pulmonary disease, unspecified Prostate Specific Antigen Scr Today J44.9 - Chronic obstructive pulmonary disease, unspecified Complete Blood Count Auto Diff Today J44.9 - Chronic obstructive pulmonary disease, unspecified Free T4 (Free Thyroxine) Today J44.9 - Chronic obstructive pulmonary disease, unspecified Thyroid Stimulating Hormone Today J44.9 - Chronic obstructive pulmonary disease, unspecified Hemoglobin A1c Today J44.9 - Chronic obstructive pulmonary disease, unspecified Referrals Gastroenterology Referral D12.6 - Benign neoplasm of colon, unspecified Medications: Refilled albuterol sulfate 90 mcg/actuation 2 puffs PO Q6H PRN 8.5 grams 0RF bronchospasm NS J43.9 - Emphysema, unspecified alprazolam 0.25 mg PO BEDTIME PRN 20 tabs 0RF anxiety F41.9 - Anxiety disorder, unspecified
[2024-09-02 10:38] VITALS: BP 102/60; BMI 30.6
== END 2024-09-02 11:12 | disposition home or self-care (01) ==
PROVIDERS: PCP Internal Medicine; Visit Provider Internal Medicine
DX: J43.9 Emphysema, unspecified (principal); R97.20 Elevated prostate specific antigen [PSA]; E66.9 Obesity, unspecified; Z68.30 Body mass index [BMI] 30.0-30.9, adult; Z72.0 Tobacco use; F41.1 Generalized anxiety disorder; R73.02 Impaired glucose tolerance (oral); N40.1 Benign prostatic hyperplasia with lower urinary tract symptoms; R35.0 Frequency of micturition; E78.00 Pure hypercholesterolemia, unspecified; I70.8 Atherosclerosis of other arteries; M70.21 Olecranon bursitis, right elbow

== ENCOUNTER → 2024-09-02 10:36 | Outpatient (BNVA) | payer MEDICARE, SELFPAY | PROVIDERS: PCP Internal Medicine; Visit Provider Internal Medicine | DX: R97.20 Elevated prostate specific antigen [PSA] (principal); E66.9 Obesity, unspecified; F41.1 Generalized anxiety disorder; R73.02 Impaired glucose tolerance (oral); N40.1 Benign prostatic hyperplasia with lower urinary tract symptoms; R35.0 Frequency of micturition; E78.00 Pure hypercholesterolemia, unspecified; J43.9 Emphysema, unspecified; I70.8 Atherosclerosis of other arteries; Z72.0 Tobacco use | CPT/HCPCS: 99212 ==

== ENCOUNTER 2024-09-07 09:45 | Outpatient (REF) | payer MEDICARE, SELFPAY ==
[2024-09-07 10:20] LABS: MANUAL DIFF FLAG NO
[2024-09-07 11:26] LABS: Basophils Absolute Auto 0.1 X10*3/uL (0.0-0.2); Basophils Percent Auto 0.6 % (0-2); Eosinophils Absolute Auto 0.3 X10*3/uL (0.0-0.4); Eosinophils Percent Auto 3.3 % (0-4); Imm Gran Abs Auto 0.03 X10*3/uL (0.00-0.03); Imm Gran Pct Auto 0.4 % (0.0-0.4); Lymphocytes Absolute Auto 1.6 X10*3/uL (1.2-4.9); Lymphocytes Percent Auto 19.8 % (20-40); Mean Corpuscular HGB Conc 34.2 g/dl (31.0-36.0); Mean Corpuscular Hemoglobin 32.8 pg (27.0-33.0); Mean Platelet Volume 10.2 fL (9.4-12.4); Monocytes Absolute Auto 0.8 X10*3/uL (0.1-1.2); Monocytes Percent Auto 9.7 % (2-11); Neutrophils Absolute Auto 5.5 x10*3/uL (2.0-8.3); Neutrophils Percent Auto 66.2 % (45-73); Platelet Count 217 X10*3/uL (160-400); Red Blood Count 3.96 X10*6/uL (4.60-5.80); Red Cell Distribution Width 15.1 % (11.0-16.0); White Blood Count 8.3 X10*3/uL (4.8-10.8)
[2024-09-07 11:31] LABS: Estimated Average Glucose 111 mg/dL; Hemoglobin A1C 126.1646 umol/L; Hemoglobin A1c % 5.5 % (<6.0); Total Hemoglobin (HGBA1C) 3473.3079 umol/L
[2024-09-07 11:59] LABS: Alanine Aminotransferase 17 U/L (0-40); Albumin Level 3.9 g/dL (3.5-5.0); Alkaline Phosphatase 112 U/L (39-117); Anion Gap 9 (12-20); Aspartate Amino Transferase 17 U/L (5-37); Bilirubin Total 0.4 mg/dL (0.0-1.0); Blood Urea Nitrogen 12 mg/dL (9-16); Calcium 8.7 mg/dL (8.4-10.2); Carbon Dioxide 28 mmol/L (22-29); Chloride 107 mmol/L (96-108); Cholesterol 144 mg/dL (<200); Estimated Glomerular Filt Rate > 60; Glucose Random 118 mg/dL (60-115); HDL Cholesterol 71 mg/dL (>40); LDL Cholesterol Calculated 64 mg/dL (<100); Potassium 4.6 mmol/L (3.3-5.1); Sodium 139 mmol/L (135-145); Total Protein 6.3 g/dL (6.5-8.0); Triglycerides 48 mg/dL (<150)
[2024-09-07 12:02] LABS: Free T4 (Free Thyroxine) 0.98 ng/dL (0.71-1.85); Thyroid Stimulating Hormone 3.61 uIU/mL (0.32-4.0)
[2024-09-07 14:08] LABS: Folate 14.3 ng/mL (> or = 4.0); Prostate Specific Antigen Scr 4.74 ng/mL (<0.05-4.0); Vitamin B12 995 pg/mL (200-900)
== END 2024-09-07 09:46 | disposition home or self-care (01) ==
LOC: HO.LAB 09:45
PROVIDERS: PCP Internal Medicine; Visit Provider Internal Medicine
DX: E78.00 Pure hypercholesterolemia, unspecified (principal); J44.9 Chronic obstructive pulmonary disease, unspecified; Z12.5 Encounter for screening for malignant neoplasm of prostate; Z13.1 Encounter for screening for diabetes mellitus
CPT/HCPCS: 36415; 80053; 80061; 82607; 82746; 83036; 84153; 84439; 84443; 85025

== ENCOUNTER 2024-09-09 11:38 | Outpatient (AMB) | payer MEDICARE, SELFPAY ==
[2024-09-09 11:47] VITALS: BP 110/60; PULSE 111; O2SAT 93
--- NOTE | 2024-09-09 11:47 | MHC.OFFWIV ---
Intake Vital Signs 09/09/24 11:47 BP 110/60 Blood Pressure Location Rt brachial Position Sitting Pulse 111 H Pulse Source Pulse Oximeter Pulse Oximetry (%) 93 Oxygen Delivery Method Room Air Intake Visit Reasons: EP-sob, neck sore due to a surgery Patient Tobacco Use Status: Former Tobacco user Allergies divalproex sodium [Depakote] Allergy (Unknown, Verified 09/09/24 11:47) Unknown rosuvastatin Allergy (Unknown, Verified 09/09/24 11:47) SOB HPI EP-sob, neck sore due to a surgery HPI Details This note is constructed using voice recognition software. While every effort has been made to ensure accuracy, removable prosthodontist errors may have been included. The patient is a 64 year old male who presents to the clinic today with dyspnea. The patient reports that he has been dyspneic since he had surgery on his neck back in June. After surgery he developed a COPD exacerbation, pneumonia, was admitted to [facility] for pneumonia, treated, discharge, and then readmitted within 24 hours for the same. He had been treated with IV antibiotics, and discharged on prednisone. He reports being discharged couple of weeks ago. He follows Dr. Bajwa. ch for Pulmonary, and does have a nebulizer at home with albuterol which he has tried without effect. He reports he has a cough, with thick yellow secretions. He reports he is unable to get all the secretions up. He reports that he monitors his pulse oximetry at home, and had a pulse ox of 97% yesterday, 87% today which did improve above 90 after using his albuterol nebulizer. He would like to avoid to go to the emergency room [facility] Medical History (Updated 09/02/24 @ 11:12 by Zuri Feldman MD) COPD (chronic obstructive pulmonary disease) Osteoarthritis of right hip Arthritis Abdominal hernia Numbness Habitual snoring Atelectasis of left lung COPD (chronic obstructive pulmonary disease) Tinea cruris Pes anserinus bursitis of left knee Upper respiratory tract infection Rib fractures Annual physical exam Contusion of chest Back strain Osteoarthritis of right hip Right hip pain Right middle lobe pulmonary infiltrate SOB (shortness of breath) Sinus congestion Overweight (BMI 25.0-29.9) Urgency of micturition Carpal tunnel syndrome Femoral fracture Pulmonary nodule BPH (benign prostatic hyperplasia) Seizure disorder Insomnia Vitamin D deficiency Impaired glucose tolerance Hypercholesterolemia Anxiety GERD (gastroesophageal reflux disease) Polysubstance abuse Left subclavian artery occlusion Brain aneurysm CVA (cerebral vascular accident) Vocal cord polyp Vitamin B12 deficiency Surgical History History of nasal surgery H/O colonoscopy Stenosis of subclavian bypass History of surgery History of orthopedic surgery History of knee replacement procedure of right knee Family History Father CAD (coronary artery disease) Kidney malignancy Mother Myocardial infarction Brother Prostate cancer Social History Household Members: Other Household Members Other:: roomate Housing: Other Housing Other:: trailer Are you a primary career development specialist to a significant other at home: No Do you presently have visiting nurse or other home services: 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) 75 years or older and lives alone: No Alcohol intake: current Alcohol intake frequency: 0-2 drinks per day Alcohol type: beer Comment: 4 drinks last night Patient Tobacco Use Status: Former Tobacco user Tobacco use type: Cigarette Cigarette Packs Per Day: 0.5 Cigarettes Per Day: 6 Years Smoked: 50, stopped 12/29/2023 on chantix e-Cigarette/Vaping Use: Never Used Second Hand Smoke Exposure: Yes Substance Use Type: Marijuana service: No Current occupational status: unemployed Cognitive needs: No Hearing needs: No Vision needs: Yes Review of Systems Const All systems reviewed & are unremarkable except as noted in HPI and below Physical Exam Vital Signs: Last Vital Signs Pulse 111 H 09/09/24 11:47 BP 110/60 09/09/24 11:47 Pulse Ox 93 09/09/24 11:47 Oxygen Delivery Method Room Air 09/09/24 11:47 Const General: cooperative, healthy appearing, comfortable and no acute distress Orientation/consciousness: patient oriented x3 Limitations: no limitations Neck Neck: Yes normal visual inspection Resp Effort & Inspection: normal respiratory effort, not able to speak in complete sentences, pursed lip breathing and tachypneic Auscultation: clear to auscultation bilaterally Cardio Jugular venous distension: no JVD Rate: regular rate Rhythm: regular rhythm Heart sounds: S1 normal heart sound present, S2 normal heart sound present, no click, no gallops, no murmurs and no rubs Skin General skin exam: no rashes or lesions noted, elasticity normal and turgor normal Neuro General: patient oriented x3 Extrem General: Yes normal to inspection and Yes no clubbing, cyanosis or edema Office Procedures Nebulizer Treatment Nebulizer Treatment [id number]/MDI RX initial, or Nebulizer Subsequent Treatment Office Meds ipratropium 0.5 mg-albuterol 3 mg (2.5 mg base)/3 mL nebulization soln Performing Provider: Xuan Carter NP Performing Location: [facility] Administered by: Xuan Carter NP on 09/09/24 12:04 Dose Route Admin Location Dispensed Lot Number Expiration Date ND [employer] 3 mL inhalation In office 3 mL [id number] 12/17/25 [id number] [facility] Assessment & Plan Assessment & Plan (1) COPD exacerbation: Code(s): J44.1 - Chronic obstructive pulmonary disease with (acute) exacerbation Plan: In office nebulizer with ipratropium bromide albuterol with significant improvement in symptoms. Resolution of dyspnea. Prescription sent to requested pharmacy for use instead of albuterol nebulizer temporarily. Azithromycin sent for COPD exacerbation given secretions. Advised patient to follow up with pulmonology as he is intended to and as scheduled. Given significant improvement, at-home treatment would be appropriate. Advised patient to present to the emergency room should he develop worsening symptoms including increased dyspnea at rest. Orders: Orders AMB Nebulizer Treatment Today R06.00 - Dyspnea, unspecified Medications: New ipratropium-albuterol 0.5 mg-3 mg(2.5 mg base)/3 mL Use either this or the albuterol nebulizer, not both 3 mL inhalation Q6H PRN 90 mL 0RF wheezing azithromycin For 250 mg dose pack: take 500 mg today (day 1), then 250 mg for 4 days (days 2-5) PO 6 tabs 0RF Coding Level of Care Code Est Pt Level 4 (47679) Diagnoses COPD exacerbation J44.1 CPT Codes Nebulizer Treatment - Nebulizer Treatment, initial or subsequent: [id number]/MDI RX initial, or Nebulizer Subsequent Treatment ([id number]) Time Spent (min) 25
== END 2024-09-09 12:36 | disposition home or self-care (01) ==
PROVIDERS: PCP Internal Medicine; Visit Provider Registered Nurse
DX: R06.00 Dyspnea, unspecified (principal); J44.1 Chronic obstructive pulmonary disease with (acute) exacerbation

== ENCOUNTER → 2024-09-09 11:38 | Outpatient (BNVA) | payer MEDICARE, SELFPAY | PROVIDERS: PCP Internal Medicine; Visit Provider Registered Nurse | DX: J44.1 Chronic obstructive pulmonary disease with (acute) exacerbation (principal) | CPT/HCPCS: 94640; 99212 ==

== ENCOUNTER 2024-09-23 15:41 | Outpatient (REF) | payer MEDICARE, SELFPAY ==
[2024-09-23 11:45] VITALS: PULSE 98; O2SAT 90
--- NOTE | 2024-09-23 15:46 | PFT_ITS ---
Flows: FEV1: 54 % of predicted at 1.68 L FVC: 70 % of predicted at 2.84 L FEV1/FVC: 59 % Bronchodilator response: Absent Volumes: Total lung capacity: 85 % of predicted at 5.70 L Residual volume: 96 % of predicted at 2.18 L Slow vital capacity: 79 % of predicted at 3.52 L Expiratory reserve volume: 39 % of predicted at 0.45 L Diffusion capacity: Moderately decreased Impression: Moderate obstructive ventilatory defect with no bronchodilator response. Decreased diffusion capacity suggests emphysema. MTDD
--- OUTSIDE RECORDS SUMMARY | 2024-09-29 04:21 | XMS_ITS | Patient Health Record ---
Author Organization [facility] Address [address] [place] [address] Care Team Providers Care Music Coordinator Name Role Phone Zuri Feldman MD Primary Care Provider Tone Jain Jr Unavailable ALLERGIES Allergen (clinical drug ingredient) Drug/Non Drug Allergy documented on EMR Reaction Allergy Type Onset Date Status NyQuil Unknown Drug Allergy Active morphine Morphine Sulfate Unknown Drug Allergy Active DayQuil Multi-Symptom Unknown Drug Allergy Active Zypack (uncoded) Unknown Allergy Act elena REASON FOR REFERRAL No Information MEDICATIONS Medication SIG (Take, Route, Frequency, Duration) Notes Start Date End Date Status oxyCODONE HCl Active Symbicort 160-4.5 MCG/ACT 2 puffs Inhala tion Twice a day Active ZyrTEC Allergy 10 MG 1 tablet Orally Onc e a day Active Atorvastatin Calcium 80 MG 1 tablet Oral ly Once a day Active Aspir-81 81 MG 1 tablet Orally Once a day Active Colyte with Flavor Packs 240 GM As directed Orally Over the specified time. for 1 day(s) Active Famotidine 20 MG 1 tablet at bedtime Orally Once a day Active Fluticasone Propionate 50 MCG/ACT 2 spray in each nostril Nasally Once a day Active ProAir HFA 108 (90 Base) MCG/ACT 2 puffs as needed Inhalation every 6 hrs/prn Active SOCIAL HISTORY Tobacco Use: Social History Observation Description Date Details (start date - stop date) Former Smoker NA - NA Sex Assigned At : Social History Observation Description Sex Assigned At Unknown Tobacco Use/Smoking Question Answer Notes Patient is a former smoker How long has it been since you last smoked? 1-5 years Alcohol Screen Question Answer Notes Did you have a drink contain ing alcohol in the past year? Yes How often did you have a dri nk containing alcohol in the past year? 4 or more times a week (4 points) How many drinks did you have on a typical day when you were drinking in the past year? 3 or 4 drinks (1 point) How often did you have 6 or more drinks on one occasion in the past year? Never (0 point) Points 5 Interpretation Positive PROBLEMS Problem Type ICD Code Onset Dates Problem Status W/U Status Risk SNOMED Code Notes Problem Colon cancer screening (Z12.11) Active confirmed 217245660 Problem Encounter for other preprocedural examination (Z01.818) Active confirmed 75065837 Problem skilled nursing (current) use of aspirin (Z79.82) Active confirmed 079241760 PLAN OF TREATMENT Future Test Test Name Order Date COLONOSCOPY 12/24/2017 Next Appt Details Provider Name:Tone jeffers , 11/22/2024 01:15:00 PM, [address] [place] [address], [address], [place], [address], Insurance Providers Payer Name Payer Address Payer Phone Subscriber Number Group Number Insured Name Patient Relationship to Insured Coverage Start Date Coverage End Date [facility] [address] [place] [address] [id number] TRACIE HOWE Self - patient is the insured MEDICAID OF [facility] [address] [place] [address] [id number] TRACIE HOWE Self - patient is the insured MEDICAL (GENERAL) HISTORY Medical History History ICD Code elevated cholesterol aneurysm in brain lung nodule COPD stroke 2014 Denies [place],DM,renal disease left subclavian artery occlusion Surgical History Surgery Date(Month/Year) right knee replacement repair of fracture femur on right side x 2 angiogram of brain and blood vessels
== END 2024-09-23 15:42 | disposition home or self-care (01) ==
LOC: HO.RESP 15:41
PROVIDERS: PCP Internal Medicine; Visit Provider Internal Medicine
DX: J44.9 Chronic obstructive pulmonary disease, unspecified (principal); F17.200 Nicotine dependence, unspecified, uncomplicated
CPT/HCPCS: 94010; 94640; 94727; 94729

== ENCOUNTER → 2024-09-23 15:46 | Outpatient (BNV) | payer MEDICARE, SELFPAY | PROVIDERS: PCP Internal Medicine; Visit Provider Internal Medicine Pulmonary Disease | DX: J44.9 Chronic obstructive pulmonary disease, unspecified (principal); F17.210 Nicotine dependence, cigarettes, uncomplicated | CPT/HCPCS: 94060; 94727; 94729 ==

== ENCOUNTER 2024-10-07 10:09 | Outpatient (AMB) | payer MEDICARE, SELFPAY ==
--- OUTSIDE RECORDS SUMMARY | 2024-10-07 10:14 | XMS_ITS | Patient Health Record ---
Author Organization [facility] Address [address] [place] [address] Care Team Providers Care Gallery Or Museum Curator Name Role Phone Zuri Feldman MD Primary [...] Problem Colon cancer screening (Z12.11) Active confirmed 035176997 Problem Encounter for other preprocedural examination (Z01.818) Active confirmed 29347982 Problem longterm (current) use of aspirin (Z79.82) Active confirmed 835458338 PLAN OF TREATMENT Future Test Test Name Order Date COLONOSCOPY 12/24/2017 Next Appt Details Provider Name:Tone jeffers , 11/22/2024 01:15:00 PM, [address] [place] [address], [address], [place], [address], Insurance Providers Payer Name Payer Address Payer Phone Subscriber Number Group Number Insured Name Patient Relationship to Insured Coverage Start Date Coverage End Date [facility] [address] [place] [address] [id number] TRACIE HOWE Self - patient is the insured MEDICAID OF [facility] [address] [place] [address] [id number] TRACIE HOWE Self - patient is the insured MEDICAL (GENERAL) HISTORY Medical History History ICD Code elevated cholesterol aneurysm in brain lung nodule COPD stroke 2014 Denies [place],DM,renal disease left subclavian artery occlusion Surgical History Surgery Date(Month/Year) right knee replacement repair of fracture femur on right side x 2 angiogram of brain and blood vessels
--- NOTE | 2024-10-07 10:18 | MHC.OFFVIS ---
Vital Signs 10/07/24 10:19 Height 5 ft 8 in Weight 201 lb BMI 30.6 Intake Visit Reasons: OV: Contusion of right elbow- F/u Intake Note: Stas is a 64 year old left hand dominant male who presents today for a follow up of his left elbow contusion. Right elbow pain s/p slip and fall while at [employer] on 05/04/24. Patient reports that he continues to have pain that increases when resting on it. Patient also reports that he was doing some pulmbing and he stepped in a hole and twisted the left hip. He reports that he is having severe shooting pain in the right hip that radiates down the right leg. He feels only mild pain at rest and significant increase of pain when weight bearing. He uses salonpas on the hip and Tylenol. Allergies divalproex sodium [Depakote] Allergy (Unknown, Verified 09/09/24 11:47) Unknown rosuvastatin Allergy (Unknown, Verified 09/09/24 11:47) SOB HPI HPI OV: Contusion of right elbow- F/u: Details: Stas is a 64 year old left hand dominant male who presents today for a follow up of his left elbow contusion. Right elbow pain s/p slip and fall while at [employer] on 05/04/24. Patient reports that he continues to have pain that increases when resting on it. Patient also reports that he was doing some pulmbing and he stepped in a hole and twisted the left hip. He reports that he is having severe shooting pain in the right hip that radiates down the right leg. He feels only mild pain at rest and significant increase of pain when weight bearing. He uses salonpas on the hip and Tylenol. [facility] Medical History (Updated 10/12/24 @ 15:33 by Raheel Mobley MD) COPD (chronic obstructive pulmonary disease) Osteoarthritis of right hip Arthritis Abdominal hernia Numbness Habitual snoring Atelectasis of left lung COPD (chronic obstructive pulmonary disease) Tinea cruris Pes anserinus bursitis of left knee Upper respiratory tract infection Rib fractures Annual physical exam Contusion of chest Back strain Osteoarthritis of right hip Right hip pain Right middle lobe pulmonary infiltrate SOB (shortness of breath) Sinus congestion Overweight (BMI 25.0-29.9) Urgency of micturition Carpal tunnel syndrome Femoral fracture Pulmonary nodule BPH (benign prostatic hyperplasia) Seizure disorder Insomnia Vitamin D deficiency Impaired glucose tolerance Hypercholesterolemia Anxiety GERD (gastroesophageal reflux disease) Polysubstance abuse Left subclavian artery occlusion Brain aneurysm CVA (cerebral vascular accident) Vocal cord polyp Vitamin B12 deficiency Surgical History History of nasal surgery H/O colonoscopy Stenosis of subclavian bypass History of surgery History of orthopedic surgery History of knee replacement procedure of right knee Family History Father CAD (coronary artery disease) Kidney malignancy Mother Myocardial infarction Brother Prostate cancer Social History Household Members: Other Household Members Other:: roomate Housing: Other Housing Other:: trailer Are you a primary pet care associate to a significant other at home: No Do you presently have visiting nurse or other home services: 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) 75 years or older and lives alone: No Alcohol intake: current Alcohol intake frequency: 0-2 drinks per day Alcohol type: beer Comment: 4 drinks last night Patient Tobacco Use Status: Former Tobacco user Tobacco use type: Cigarette Cigarette Packs Per Day: 0.5 Cigarettes Per Day: 6 Years Smoked: 50, stopped 12/29/2023 on chantix e-Cigarette/Vaping Use: Never Used Second Hand Smoke Exposure: Yes Substance Use Type: Marijuana service: No Current occupational status: unemployed Cognitive needs: No Hearing needs: No Vision needs: Yes Physical Exam Vital Signs: BMI result Body Mass Index 30.6 Extrem Other: TTP right elbow with pain on resisted wrist ext. Office Procedures Joint Inj/Aspir; Non-Pain Clin Joint Injection/Drain Details: Injected 1 mL of Decadron and 1 mL 1% lidocaine and 1 mL of 0.25% Marcaine. Site was prepped using aseptic technique. Patient tolerated the procedure well. Elbows, Wrist, Hands, Elbow Injection Medium joint : Right Elbow Coding Procedure code (CPT) selection complete Assessment & Plan Assessment & Plan (1) Lateral epicondylitis, right elbow: Code(s): M77.11 - Lateral epicondylitis, right elbow Category: Medical Plan: This is a 64-year-old gentleman with right elbow epicondylitis. I injected his right elbow and gave him a counterforce brace. Prescription for Celebrex was written. Orders: Orders XR pelvis 1-2V 10/07/24 M25.559 - Pain in unspecified hip Medications: New celecoxib (Celebrex) 200 mg PO ONCE PRN 30 caps 2RF pain Coding Level of Care Code Est Pt Level 3 (75343) Diagnoses Lateral epicondylitis, right elbow M77.11 CPT Codes Elbows, Wrist, Hands, - Elbow Injection Medium joint : Right Elbow ([id number])
[2024-10-07 10:19] VITALS: BMI 30.6
== END 2024-10-07 11:31 | disposition home or self-care (01) ==
PROVIDERS: PCP Internal Medicine; Visit Provider Orthopaedic Surgery
DX: M77.11 Lateral epicondylitis, right elbow (principal)
CPT/HCPCS: 20550; 99213

== ENCOUNTER 2024-10-07 10:09 | Outpatient (REF) | payer MEDICARE, SELFPAY ==
--- NOTE | ~2024-10-07 | XR_ITS ---
EXAMINATION: XR PELVIS CLINICAL INFORMATION: M25.559 - Pain in unspecified hip COMPARISON: January 12, 2024 TECHNIQUE: AP view of the pelvis. FINDINGS: Right hip prosthesis is properly positioned, no radiographic evidence of device failure or loosening. Mild degenerative osteoarthritis of the left hip. There are vascular calcifications. There has been no significant change. XR/XR pelvis 1-2V IMPRESSION: 1. Right hip prosthesis properly positioned. 2. Mild DJD left hip. 3. Vascular calcifications. Electronically signed by: Channing Iglesias MD 10/09/2024 11:50 AM ROULA MANCILLA
== END 2024-10-07 10:10 | disposition home or self-care (01) ==
LOC: HO.HOSX 10:09
PROVIDERS: PCP Internal Medicine; Visit Provider Orthopaedic Surgery
DX: M25.559 Pain in unspecified hip (principal); M77.11 Lateral epicondylitis, right elbow
CPT/HCPCS: 20550; 72170; 99212; J0665; J1100; J2003

== ENCOUNTER 2024-10-28 14:00 | Outpatient (AMB) | payer MEDICARE, SELFPAY ==
[2024-10-28 14:05] VITALS: BP 110/52; PULSE 94; O2SAT 95; BMI 31.0
--- NOTE | 2024-10-28 14:05 | A.OFFVIS_ITS ---
Vital Signs 10/28/24 14:05 Height 5 ft 8 in Weight 203 lb 14.841 oz BMI 31.0 BP 110/52 L Blood Pressure Location Lt brachial Position Sitting Pulse 94 Pulse Source Pulse Oximeter Pulse Oximetry (%) 95 Oxygen Delivery Method Room Air Intake Visit Reasons: COPD Intake Note: pt is here for follow up and states incruse is helping, but still a lot of mucous, and here for pft f/u Clinical Neuropsychologist Required: No Allergies divalproex sodium [Depakote] Allergy (Unknown, Verified 10/28/24 14:11) Unknown rosuvastatin Allergy (Unknown, Verified 10/28/24 14:11) SOB Medication List - Last Reconciled 10/28/24 by Rey Oneil MD [shower chair As directed] acetaminophen 650 mg (2 x 325 mg) PO Q6H PRN 30 days albuterol sulfate 2.5 mg (3 mL) inhalation QID PRN 30 days albuterol sulfate 90 mcg/actuation 2 puffs PO Q6H PRN NS alprazolam 0.25 mg PO BEDTIME PRN amoxicillin 2,000 mg (4 x 500 mg) PO ONCE apixaban (Eliquis) 2.5 mg PO BID aspirin 81 mg PO DAILY atorvastatin 80 mg PO BEDTIME bupropion HCl SR (Wellbutrin SR) 150 mg PO BID celecoxib (Celebrex) 200 mg PO ONCE PRN clotrimazole-betamethasone 1-0.05 % 1 appl topical BID PRN cyanocobalamin (vitamin B-12) 1,000 mcg PO DAILY fluticasone propion-salmeterol 250-50 mcg/dose 1 inh inhalation BID fluticasone propionate 50 mcg/actuation 2 sprays intranasal DAILY gabapentin 300 mg PO TID 90 days ipratropium-albuterol 0.5 mg-3 mg(2.5 mg base)/3 mL 3 mL inhalation Q4H PRN 30 days miconazole nitrate 2% (Zeasorb AF) 1 appl topical BID PRN omeprazole 20 mg PO BID@0630,1630 tamsulosin 0.4 mg PO DAILY tizanidine 2 mg PO Q8H PRN tramadol 50 mg PO Q4H PRN umeclidinium 62.5 mcg/actuation (Incruse Ellipta) 1 inh inhalation DAILY 30 days [WALKER As directed] Do you need a note to return to daycare/school/sports/work: No HPI HPI COPD: Details: This 64 years old gentleman who is moderately obese and has chronic obstructive pulmonary disease is here for follow-up. His main complaint today is pain in the left hip, and thigh, due to degenerative arthritis. Also he has ongoing cough with some mucus, but it is white, He has had. No acute respiratory infection He is using Advair twice a day, Incruse Ellipta once a day, and DuoNeb updrafts once or twice a day. Still gets short of breath on walking however his walking a slow and he uses a cane. [facility] Medical History COPD (chronic obstructive pulmonary disease) Osteoarthritis of right hip Arthritis Abdominal hernia Numbness Habitual snoring Atelectasis of left lung COPD (chronic obstructive pulmonary disease) Tinea cruris Pes anserinus bursitis of left knee Upper respiratory tract infection Rib fractures Annual physical exam Contusion of chest Back strain Osteoarthritis of right hip Right hip pain Right middle lobe pulmonary infiltrate SOB (shortness of breath) Sinus congestion Overweight (BMI 25.0-29.9) Urgency of micturition Carpal tunnel syndrome Femoral fracture Pulmonary nodule BPH (benign prostatic hyperplasia) Seizure disorder Insomnia Vitamin D deficiency Impaired glucose tolerance Hypercholesterolemia Anxiety GERD (gastroesophageal reflux disease) Polysubstance abuse Left subclavian artery occlusion Brain aneurysm CVA (cerebral vascular accident) Vocal cord polyp Vitamin B12 deficiency Surgical History History of nasal surgery H/O colonoscopy Stenosis of subclavian bypass History of surgery History of orthopedic surgery History of knee replacement procedure of right knee Family History Father CAD (coronary artery disease) Kidney malignancy Mother Myocardial infarction Brother Prostate cancer Social History Household Members: Other Household Members Other:: roomate Housing: Other Housing Other:: trailer Are you a primary animal care technician to a significant other at home: No Do you presently have visiting nurse or other home services: 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) 75 years or older and lives alone: No Alcohol intake: current Alcohol intake frequency: 0-2 drinks per day Alcohol type: beer Comment: 4 drinks last night Patient Tobacco Use Status: Former Tobacco user Tobacco use type: Cigarette Cigarette Packs Per Day: 0.5 Cigarettes Per Day: 6 Years Smoked: 50, stopped 12/29/2023 on chantix e-Cigarette/Vaping Use: Never Used Second Hand Smoke Exposure: Yes Substance Use Type: Marijuana service: No Current occupational status: unemployed Cognitive needs: No Hearing needs: No Vision needs: Yes Review of Systems Const All systems reviewed & are unremarkable except as noted in HPI and below Eyes Reports no additional complaints ENT Reports no additional complaints Card Denies chest pain, Denies irregular heart rhythm and Denies leg edema Resp Reports as per HPI GI Reports constipation and Reports heartburn Reports no additional complaints Musc Reports arthralgias (HIPS) Skin/Breast Reports system reviewed and no additional complaints, except as documented Neuro Reports no additional complaints Psych Reports no additional complaints Endo Reports no additional complaints Sarkis/Lymph Reports no additional complaints Physical Exam Vital Signs: Last Vital Signs Pulse 94 10/28/24 14:05 BP 110/52 L 10/28/24 14:05 Pulse Ox 95 10/28/24 14:05 Oxygen Delivery Method Room Air 10/28/24 14:05 BMI result Body Mass Index 31.0 Const General: comfortable, no acute distress, alert and awake Orientation/consciousness: patient oriented x3 HEENT Head: Yes normal to inspection General nose exam: No nasal polyps present and No nasal discharge present Face and sinus: Yes sinuses nontender Mouth: oropharynx normal Throat: Yes posterior oropharynx normal Eyes General: appearance normal, both eyes and all related structures Neck Other: SCAR ON THE LEFT SIDE FROM PREVIOUS CAROTID ENDARTERECTOMIES RECENT REVISION OF THE SURGERY. Neck: Yes normal visual inspection, Yes no lymphadenopathy, Yes trachea midline and Yes no JVD Thyroid: Thyroid normal Chest Chest palpation & inspection: normal inspection of the chest (HIS SURGICAL SCAR IN THE LEFT PECTORAL AREA FROM RECENT VASCULAR SURGERY), normal palpation of entire chest wall and no tenderness Resp Other: PERCUSSION NOTE IS RESONANT, BREATH SOUNDS ARE DISTANT AND ESPECIALLY DECREASED OVER THE BASILAR AREAS NO CREPITATIONS OR WHEEZES ARE HEARD TODAY . Cardio Palpation: normal PMI Rate: regular rate Rhythm: regular rhythm Heart sounds: no gallops and no murmurs GI Palpation (GI): Soft to palpation, nontender, No hepatosplenomegaly present and no masses Auscultation: normal bowel sounds Back/Spine/Pelvis Thoracic/Lumbar Spine: thoracic and lumbar spine normal to inspection Skin General skin exam: no rashes or lesions noted Neuro General: patient oriented x3 and no focal motor deficits Cranial nerves: Yes CN's II-XII intact bilaterally Extrem General: Yes normal to inspection, Yes no clubbing, cyanosis or edema and Yes no calf tenderness Psych Appearance: grossly normal and well kempt Speech and movement: Normal speech and movement present Results Reviewed Results Reviewed: Pulmonary function test on 09/23/2024, shows moderately severe obstructive airway disorder and no significant response to bronchodilator therapy. Assessment & Plan Assessment & Plan (1) COPD (chronic obstructive pulmonary disease): Comment: PATIENT HAS MODERATE DEGREE OF CHRONIC OBSTRUCTIVE PULMONARY DISEASE. Explained that his chronic cough and shortness of breath on exertion is secondary to COPD. Code(s): J44.9 - Chronic obstructive pulmonary disease, unspecified Category: Medical Qualifiers: COPD type: emphysema Emphysema type: unspecified Qualified Code(s): J43.9 - Emphysema, unspecified Plan: Continue the current medical regimen which is as follows FLUTICASONE-SALMETEROL . 250-51 INHALATION B.I.D. INCRUSE ELLIPTA. 1 INHALATION DAILY IPRATROPIUM-ALBUTEROL SOLUTION IN THE NEBULIZER Q 6 HOURS WHILE AWAKE ( MAY USE UP TO 3 TIMES A DAY) ALBUTEROL HFA 2 PUFFS Q 6 HOURS P.R.N. WHEN OUTDOORS. FOR COUGH AND EXCESSIVE MUCUS HE MAY USE MUCINEX SYRUP 2 TSP TWICE A DAY. (2) Smoker: Comment: HE DOES HAVE LONGSTANDING HISTORY OF SMOKING, SAYS THAT HE HAS NOT SMOKED SINCE HIS LAST VISIT . Code(s): F17.200 - Nicotine dependence, unspecified, uncomplicated Category: Social Hx Plan: AGAIN STRESSED THAT HE SHOULD NOT GO NEER'S SMOKING AT ALL Medications: Refilled umeclidinium 62.5 mcg/actuation (Incruse Ellipta) 1 inh inhalation DAILY 30 days 30 ea 4RF severe copd Coding Level of Care Code Est Pt Level 3 (67915) Diagnoses Pulmonary emphysema, unspecified emphysema type J43.9 COPD type: emphysema Emphysema type: unspecified Smoker F17.200
--- OUTSIDE RECORDS SUMMARY | 2024-10-28 15:10 | XMS_ITS | Patient Health Record ---
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 Name Role Phone Zuri Feldman MD [...] Problem Colon cancer screening (Z12.11) Active confirmed 312614956 Problem Encounter for other preprocedural examination (Z01.818) Active confirmed [id number] Problem assisted (current) use of aspirin (Z79.82) Active confirmed [id number] PLAN OF TREATMENT Future Test Test Name Order Date COLONOSCOPY 12/24/2017 Next Appt Details Provider Name:Tone jeffers , 11/22/2024 01:15:00 PM, [address] [place] [address], [address], [place], [address], Insurance Providers Payer Name Payer Address Payer Phone Subscriber Number Group Number Insured Name Patient Relationship to Insured Coverage Start Date Coverage End Date [employer] [facility] [address] [place] [address] [id number] TRACIE HOWE Self - patient is the insured MEDICAID OF [facility] [address] [place] [address] [id number] TRACIE HOWE Self - patient is the insured MEDICAL (GENERAL) HISTORY Medical History History ICD Code elevated cholesterol aneurysm in brain lung nodule COPD stroke 2014 Denies MS,DM,renal disease left subclavian artery occlusion Surgical History Surgery Date(Month/Year) right knee replacement repair of fracture femur on right side x 2 angiogram of brain and blood vessels
== END 2024-10-28 14:23 | disposition home or self-care (01) ==
PROVIDERS: PCP Internal Medicine; Visit Provider Internal Medicine
DX: J43.9 Emphysema, unspecified (principal); F17.200 Nicotine dependence, unspecified, uncomplicated
CPT/HCPCS: 99213

== ENCOUNTER → 2024-10-28 14:00 | Outpatient (BNVA) | payer MEDICARE, SELFPAY | PROVIDERS: PCP Internal Medicine; Visit Provider Internal Medicine | DX: J43.9 Emphysema, unspecified (principal); F17.210 Nicotine dependence, cigarettes, uncomplicated | CPT/HCPCS: 99212 ==

== ENCOUNTER 2024-11-06 11:35 | Outpatient (AMB) | payer MEDICARE, SELFPAY ==
[2024-11-06 11:39] VITALS: BP 112/70; PULSE 110; TEMP 36.7; O2SAT 93; BMI 30.9
--- NOTE | 2024-11-06 11:39 | AM.OFFWIN_ITS ---
Intake Vital Signs 11/06/24 11:39 Height 5 ft 8 in Weight 203 lb BMI 30.9 BP 112/70 Blood Pressure Location Rt brachial Position Sitting Pulse 110 H Pulse Source Pulse Oximeter Temp 98.0 F Temp Source Oral Pulse Oximetry (%) 93 Oxygen Delivery Method Room Air Intake Visit Reasons: EP LT leg pain, not able to bear wt Intake Note: pt is here for left leg pain, unable to bare weight on left leg. Patient Tobacco Use Status: Former Tobacco user Allergies divalproex sodium [Depakote] Allergy (Unknown, Verified 11/06/24 11:39) Unknown rosuvastatin Allergy (Unknown, Verified 11/06/24 11:39) SOB Do you need a note to return to daycare/school/sports/work: No HPI EP LT leg pain, not able to bear wt HPI Details Lateral left thigh pain which is severe with bearing weight. He notes that he stepped in a pothole about a month ago. Initial pain but was able to bear weight and walk effectively at the time. Pain has increased with passage of time and walking/bearing weight. Has not tried any remedies Patient declines to go to the emergency department. [facility] Medical History COPD (chronic obstructive pulmonary disease) Osteoarthritis of right hip Arthritis Abdominal hernia Numbness Habitual snoring Atelectasis of left lung COPD (chronic obstructive pulmonary disease) Tinea cruris Pes anserinus bursitis of left knee Upper respiratory tract infection Rib fractures Annual physical exam Contusion of chest Back strain Osteoarthritis of right hip Right hip pain Right middle lobe pulmonary infiltrate SOB (shortness of breath) Sinus congestion Overweight (BMI 25.0-29.9) Urgency of micturition Carpal tunnel syndrome Femoral fracture Pulmonary nodule BPH (benign prostatic hyperplasia) Seizure disorder Insomnia Vitamin D deficiency Impaired glucose tolerance Hypercholesterolemia Anxiety GERD (gastroesophageal reflux disease) Polysubstance abuse Left subclavian artery occlusion Brain aneurysm CVA (cerebral vascular accident) Vocal cord polyp Vitamin B12 deficiency Surgical History History of nasal surgery H/O colonoscopy Stenosis of subclavian bypass History of surgery History of orthopedic surgery History of knee replacement procedure of right knee Family History Father CAD (coronary artery disease) Kidney malignancy Mother Myocardial infarction Brother Prostate cancer Social History Household Members: Other Household Members Other:: roomate Housing: Other Housing Other:: trailer Are you a primary dog daycare provider to a significant other at home: No Do you presently have visiting nurse or other home services: Yes (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) 75 years or older and lives alone: No Alcohol intake: current Alcohol intake frequency: 0-2 drinks per day Alcohol type: beer Comment: 4 drinks last night Patient Tobacco Use Status: Former Tobacco user Tobacco use type: Cigarette Cigarette Packs Per Day: 0.5 Cigarettes Per Day: 6 Years Smoked: 50, stopped 12/29/2023 on chantix e-Cigarette/Vaping Use: Never Used Second Hand Smoke Exposure: Yes Substance Use Type: Marijuana service: No Current occupational status: unemployed Cognitive needs: No Hearing needs: No Vision needs: Yes Review of Systems Const Denies chills, Denies fatigue, Denies fever(s), Denies headache(s) and Denies weakness ENT Denies dizziness and Denies headache(s) Card Denies dyspnea Resp Denies cough, Denies dyspnea, Denies wheezing and Denies other ( shortness of breath) Musc Details: See HPI - left lateral thigh pain and difficulty bearing weight. Using walker Reports abnormal gait, Denies numbness and Denies tingling Neuro Reports abnormal gait, Denies dizziness, Denies headache(s), Denies numbness, Denies tingling, Denies paresthesias and Denies weakness Psych Denies anxiety and Denies depression Endo Denies fatigue Aller/Immun Denies wheezing Physical Exam Vital Signs: Last Vital Signs Temp 98.0 F 11/06/24 11:39 Pulse 110 H 11/06/24 11:39 BP 112/70 11/06/24 11:39 Pulse Ox 93 11/06/24 11:39 Oxygen Delivery Method Room Air 11/06/24 11:39 BMI result Body Mass Index 30.9 Const General: no acute distress and well developed Nutritional Appearance: well nourished Orientation/consciousness: patient oriented x3 HEENT Head: Yes normocephalic and Yes atraumatic Eyes General: appearance normal, both eyes and all related structures Pupils: Equal, round and reactive pupils present EOM: EOMs intact bilaterally Resp Effort & Inspection: normal respiratory effort Auscultation: clear to auscultation bilaterally Cardio Rate: regular rate Rhythm: regular rhythm Heart sounds: S1 normal heart sound present, S2 normal heart sound present, no gallops, no murmurs and no rubs Neuro General: patient oriented x3 and gait normal Cranial nerves: Yes Equal, round and reactive pupils present Extrem Other: Exquisite tenderness at iliotibial band and lateral thigh with somewhat superficial pressure. No femur pain to palpation or percussion. Normal range of motion when not bearing weight. Severe pain with bearing weight and requires walker Psych Affect: normal affect Assessment & Plan Assessment & Plan (1) Pain of left lateral upper thigh: Code(s): M79.652 - Pain in left thigh Plan: Lateral thigh pain x1 month after initially straining it Possible vastus lateralis muscle strain verses iliotibial band syndrome Will give him a short course of tramadol for severe pain. Will give him diclofenac gel. Patient is on Eliquis. Also advise Tylenol Use ice and elevation Referred for physical therapy Patient should continue using walker for now. Advised him that inability to effectively bear weight is a reason to go to the emergency department but he has declined this. Follow-up with PCP Orders: Orders PT Evaluation and Treatment Today M79.652 - Pain in left thigh Medications: New tramadol 50 mg PO BID 5 days PRN 10 tabs 0RF pain diclofenac sodium 1% (Arthritis Pain (diclofenac)) apply to single knee, ankle, foot; for foot includes sole/toes/top of foot 4 grams topical BID 30 days 200 grams 2RF Coding Level of Care Code Est Pt Level 3 (28025) Diagnoses Pain of left lateral upper thigh M79.652
== END 2024-11-06 12:59 | disposition home or self-care (01) ==
PROVIDERS: PCP Internal Medicine; Visit Provider Family Medicine
DX: M79.652 Pain in left thigh (principal)

== ENCOUNTER → 2024-11-06 11:35 | Outpatient (BNVA) | payer MEDICARE, SELFPAY | PROVIDERS: PCP Internal Medicine; Visit Provider Family Medicine | DX: M79.652 Pain in left thigh (principal) | CPT/HCPCS: 99212 ==

== ENCOUNTER 2024-11-15 13:12 | Outpatient (AMB) | payer MEDICARE, SELFPAY ==
[2024-11-15 13:24] VITALS: BP 122/60; PULSE 102; O2SAT 92; BMI 30.9
--- NOTE | 2024-11-15 13:24 | MHC.OFFVIS ---
Vital Signs 11/15/24 13:24 Height 5 ft 8 in Weight 203 lb BMI 30.9 BP 122/60 Blood Pressure Location Rt brachial Position Sitting Pulse 102 H Pulse Source Pulse Oximeter Pulse Oximetry (%) 92 Oxygen Delivery Method Room Air Intake Visit Reasons: sick visit Intake Note: pt is here for sick visit, still is coughing, wheezing, short of breath, feels like a mucous plug in his throat that he cannot get out, he feels like his throat closes up at times, voice is shot, and he feels all this has been happening since his carotid surgery, he wakes up gasping for air at night, snores, tired through out the day. Spareribs Trimmer Required: No Allergies divalproex sodium [Depakote] Allergy (Unknown, Verified 11/15/24 13:51) Unknown rosuvastatin Allergy (Unknown, Verified 11/15/24 13:51) SOB Medication List - Last Reconciled 11/15/24 by Rey Oneil MD [shower chair As directed] acetaminophen 650 mg (2 x 325 mg) PO Q6H PRN 30 days albuterol sulfate 2.5 mg (3 mL) inhalation QID PRN 30 days albuterol sulfate 90 mcg/actuation 2 puffs PO Q6H PRN NS alprazolam 0.25 mg PO BEDTIME PRN amoxicillin 2,000 mg (4 x 500 mg) PO ONCE apixaban (Eliquis) 2.5 mg PO BID aspirin 81 mg PO DAILY atorvastatin 80 mg PO BEDTIME bupropion HCl SR (Wellbutrin SR) 150 mg PO BID celecoxib (Celebrex) 200 mg PO ONCE PRN clotrimazole-betamethasone 1-0.05 % 1 appl topical BID PRN cyanocobalamin (vitamin B-12) 1,000 mcg PO DAILY diclofenac sodium 1% (Arthritis Pain (diclofenac)) 4 grams topical BID 30 days fluticasone propion-salmeterol 250-50 mcg/dose 1 inh inhalation BID fluticasone propionate 50 mcg/actuation 2 sprays intranasal DAILY gabapentin 300 mg PO TID 90 days ipratropium-albuterol 0.5 mg-3 mg(2.5 mg base)/3 mL 3 mL inhalation Q4H PRN 30 days miconazole nitrate 2% (Zeasorb AF) 1 appl topical BID PRN omeprazole 20 mg PO BID@0630,1630 tamsulosin 0.4 mg PO DAILY tizanidine 2 mg PO Q8H PRN tramadol 50 mg PO Q4H PRN tramadol 50 mg PO BID PRN 5 days umeclidinium 62.5 mcg/actuation (Incruse Ellipta) 1 inh inhalation DAILY 30 days [WALKER As directed] Do you need a note to return to daycare/school/sports/work: No HPI HPI sick visit: Details: THIS 64 YEARS OLD GENTLEMAN A KNOWN CASE OF CHRONIC OBSTRUCTIVE PULMONARY DISEASE, AND MULTIPLE COMORBIDITIES. COMES IN BECAUSE HE HAS BEEN CALLING OVER THE TELEPHONE WITH ONGOING SYMPTOM OF SORE THROAT COUGH NOT ABLE TO BRING UP LOT OF MUCUS. HE HAS BEEN TREATED OVER THE TELEPHONE WITH A COURSE OF PREDNISONE AND AZITHROMYCIN WITHOUT MUCH IMPROVEMENT. .DENIES FEVER OR CHILLS HE IS USING HIS INHALERS INCLUDING FLUTICASONE-SALMETEROL 250-50 TWICE A DAY FLONASE NASAL SPRAY ONCE A DAY IPRATROPIUM AND ALBUTEROL IN THE NEBULIZER 3 TIMES A DAY ALSO INCRUSE ELLIPTA ONCE A DAY. PATIENT ALSO COMPLAINS OF EXCESSIVE SNORING AND FREQUENT AWAKENINGS AT NIGHT. HE DOES HAVE A ROUND FACE WITH AN OBESE NECK [facility] Medical History (Updated 11/15/24 @ 13:59 by Rey Oneil MD) Pharyngitis COPD (chronic obstructive pulmonary disease) Osteoarthritis of right hip Arthritis Abdominal hernia Numbness Habitual snoring Atelectasis of left lung COPD (chronic obstructive pulmonary disease) Tinea cruris Pes anserinus bursitis of left knee Upper respiratory tract infection Rib fractures Annual physical exam Contusion of chest Back strain Osteoarthritis of right hip Right hip pain Right middle lobe pulmonary infiltrate SOB (shortness of breath) Sinus congestion Overweight (BMI 25.0-29.9) Urgency of micturition Carpal tunnel syndrome Femoral fracture Pulmonary nodule BPH (benign prostatic hyperplasia) Seizure disorder Insomnia Vitamin D deficiency Impaired glucose tolerance Hypercholesterolemia Anxiety GERD (gastroesophageal reflux disease) Polysubstance abuse Left subclavian artery occlusion Brain aneurysm CVA (cerebral vascular accident) Vocal cord polyp Vitamin B12 deficiency Surgical History History of nasal surgery H/O colonoscopy Stenosis of subclavian bypass History of surgery History of orthopedic surgery History of knee replacement procedure of right knee Family History Father CAD (coronary artery disease) Kidney malignancy Mother Myocardial infarction Brother Prostate cancer Social History Household Members: Other Household Members Other:: roomate Housing: Other Housing Other:: trailer Are you a primary managed care analyst to a significant other at home: No Do you presently have visiting nurse or other home services: Yes (burn out tender lace) 75 years or older and lives alone: No Alcohol intake: current Alcohol intake frequency: 0-2 drinks per day Alcohol type: beer Comment: 4 drinks last night Patient Tobacco Use Status: Former Tobacco user Tobacco use type: Cigarette Cigarette Packs Per Day: 0.5 Cigarettes Per Day: 6 Years Smoked: 50, stopped 12/29/2023 on chantix e-Cigarette/Vaping Use: Never Used Second Hand Smoke Exposure: Yes Substance Use Type: Marijuana service: No Current occupational status: unemployed Cognitive needs: No Hearing needs: No Vision needs: Yes Review of Systems Const All systems reviewed & are unremarkable except as noted in HPI and below Eyes Reports no additional complaints ENT Reports no additional complaints Card Denies chest pain, Denies irregular heart rhythm and Denies leg edema Resp Reports as per HPI GI Reports constipation and Reports heartburn Reports no additional complaints Musc Reports arthralgias (HIPS) Skin/Breast Reports system reviewed and no additional complaints, except as documented Neuro Reports no additional complaints Psych Reports no additional complaints Endo Reports no additional complaints Sarkis/Lymph Reports no additional complaints Physical Exam Vital Signs: Last Vital Signs Pulse 102 H 11/15/24 13:24 BP 122/60 11/15/24 13:24 Pulse Ox 92 11/15/24 13:24 Oxygen Delivery Method Room Air 11/15/24 13:24 BMI result Body Mass Index 30.9 Const General: comfortable, no acute distress, alert and awake Orientation/consciousness: patient oriented x3 HEENT Head: Yes normal to inspection General nose exam: No nasal polyps present and No nasal discharge present Face and sinus: Yes sinuses nontender Mouth: oropharynx normal (HE HAS DIFFUSE REDNESS OF THE PHARYNGEAL MUCOSA AND THE SOFT PALATE ) Throat: Yes posterior oropharynx normal Eyes General: appearance normal, both eyes and all related structures Neck Other: SCAR ON THE LEFT SIDE FROM PREVIOUS CAROTID ENDARTERECTOMIES RECENT REVISION OF THE SURGERY. Neck: Yes normal visual inspection, Yes no lymphadenopathy, Yes trachea midline and Yes no JVD Thyroid: Thyroid normal Chest Chest palpation & inspection: normal inspection of the chest (HIS SURGICAL SCAR IN THE LEFT PECTORAL AREA FROM RECENT VASCULAR SURGERY), normal palpation of entire chest wall and no tenderness Resp Other: PERCUSSION NOTE IS RESONANT, BREATH SOUNDS ARE DISTANT AND ESPECIALLY DECREASED OVER THE BASILAR AREAS NO CREPITATIONS OR WHEEZES ARE HEARD TODAY . Cardio Palpation: normal PMI Rate: regular rate Rhythm: regular rhythm Heart sounds: no gallops and no murmurs GI Palpation (GI): Soft to palpation, nontender, No hepatosplenomegaly present and no masses Auscultation: normal bowel sounds Back/Spine/Pelvis Thoracic/Lumbar Spine: thoracic and lumbar spine normal to inspection Skin General skin exam: no rashes or lesions noted Neuro General: patient oriented x3 and no focal motor deficits Cranial nerves: Yes CN's II-XII intact bilaterally Extrem General: Yes normal to inspection, Yes no clubbing, cyanosis or edema and Yes no calf tenderness Psych Appearance: grossly normal and well kempt Speech and movement: Normal speech and movement present Assessment & Plan Assessment & Plan (1) COPD (chronic obstructive pulmonary disease): Comment: PATIENT HAS MODERATE DEGREE OF CHRONIC OBSTRUCTIVE PULMONARY DISEASE. Explained that his chronic cough and shortness of breath on exertion is secondary to COPD. Code(s): J44.9 - Chronic obstructive pulmonary disease, unspecified Category: Medical Qualifiers: COPD type: emphysema Emphysema type: unspecified Qualified Code(s): J43.9 - Emphysema, unspecified Plan: PATIENT CONTINUES TO HAVE FREQUENT COUGH AND INCREASED SHORTNESS OF BREATH. HOWEVER HE DOES NOT MEET CRITERIA FOR ACUTE EXACERBATIONS. HE HAS BEEN TREATED WITH SHORT COURSES OF PREDNISONE AND AZITHROMYCIN ALREADY. ADVISED TO CONTINUE USING INCRUSE ELLIPTA 1 INHALATION DAILY CONTINUE TO USE THE IPRATROPIUM-ALBUTEROL SOLUTION IN THE NEBULIZER. Q 6 HOURS WHILE AWAKE ADVISED TO STOP USING FLUTICASONE-SALMETEROL FOR THE TIME BEING. (2) Atelectasis of left lung: Comment: CHEST X-RAY ON 07/16/23, SHOWED CHRONIC LINEAR ATELECTASIS RIGHT MID LUNG, ALSO SHOWED ATELECTASIS/ VS PNEUMONIA IN THE LEFT BASE., FOLLOW-UP X-RAY ON HIS LAST VISIT IN OCTOBER SHOWED THAT THE PNEUMONIA IN THE LEFT BASE HAD COMPLETELY RESOLVED. Code(s): J98.11 - Atelectasis Category: Medical Plan: ADVISED TO CONTINUE DOING DEEP BREATHING EXERCISES (3) Pharyngitis: Comment: HE HAS DIFFUSE PHARYNGITIS. BUT NO WHITE EXUDATES CLINICALLY I THINK HE HAS ORAL CANDIDIASIS, CAUSING HIS SYMPTOMS OF COUGH AND MUCUS PRODUCTION. Code(s): J02.9 - Acute pharyngitis, unspecified Category: Medical Plan: ADVISED TO DO GARGLES WITH WARM WATER 3 TIMES A DAY. EMPIRICALLY WILL TREAT WITH NYSTATIN SWISHES T.I.D. FOR 10 DAYS. WILL RECHECK HIS THROAT IN 10 DAYS. Medications: New nystatin swish and swallow 5 mL PO TID 10 days 150 mL 1RF ORAL CANDIDIASIS Coding Level of Care Code Est Pt Level 3 (65036) Diagnoses Pulmonary emphysema, unspecified emphysema type J43.9 COPD type: emphysema Emphysema type: unspecified Atelectasis of left lung J98.11 Pharyngitis J02.9
--- OUTSIDE RECORDS SUMMARY | 2024-11-15 17:54 | XMS_ITS | Encounter Summary ---
Author Organization [facility] Address [address] [place] [address] Care Team Providers Care Bagel Maker Name Role Phone Unavailable Primary Care Provider Unavailabl e Encounter Details Date Type Department Care Team (Late st Contact Info) Description 03/28/2022 Dental Interim Note [facility] [address] [place] [address] Anneliese Moreno, DDS [address] [place] [address] Social History Tobacco Use Types Packs/Day Years Used Date Smoking Tobacco: Every Day Smokeless Tobacco: Never Social Connections Answer Date Recorded Social Connections and Isolation 0 10/31/2021 Financial Resource Strain Answer Date R ecorded Financial Resource Strain 0 2021 Stress Answer Date Recorded Stress 0 10/31/2021 Physical Activity Answer Date Recorded Physical Activity 0 10/31/2021 Food Insecurity Answer Date Recorded Food 0 10/31/2021 Transportation Needs Answer Date Record ed Transportation 0 10/31/2021 Housing Stability Answer Date Recorded Housing 0 10/31/2021 Safety and Environment Answer Date Tristan rded Safety 0 10/31/2021 Utilities Answer Date Recorded Utilities 0 10/31/2021 Employment Answer Date Recorded Employment 0 10/31/2021 Sex and Gender Information Value Date Recorded Sex Assigned at Male 03/20/2022 8:07 AM PDT Legal Sex Male 7:38 AM PST Gender Identity Male 03/20/2022 8:07 AM PDT Sexual Orientation Straight 03/20/2022 8: 07 AM PDT COVID-19 Exposure Response Date Recorded In the last 10 days, have yo u been in contact with someone who was confirmed or suspected to have Coronavirus/COVID-19? No / Unsure 03/26/2022 2:55 PM EDT documented as of this encounter Plan of Treatment Upcoming Encounters Date Type Department Care Team (Late st Contact Info) Description 12/16/2024 1:00 PM EST Office Visit [facility] [address] [place] [address] Jeaneth Chavez [address] [place] [phone] documented as of this encounter Visit Diagnoses Not on filedocumented in this encounter
--- OUTSIDE RECORDS SUMMARY | 2024-11-15 17:54 | XMS_ITS | Clinical Summary ---
Author Organization [employer] Address [address] [facility] [facility] [address] [place] [address] Care Team Providers Care Mine Equipment Design Engineer Name Role Phone Unavailable Primary Care Provider Unavailabl e Allergies Active Allergy Reactions Criticality Noted Date Comments Azithromycin Rash Low 09/22/2023 hives Morphine Palpitations Low 03/20/2022 tachycardica Medications albuterol 108 (90 Base) MCG/ACT inhaler 06/20/2023 Active ALPRAZolam (Xanax) 0.25 MG tablet 09/08/2023 Acti ve Eliquis 2.5 MG tablet 09/19/2023 Active atorvastatin (Lipitor) 80 MG tablet 09/19/2023 Active fluticasone (Flonase) 50 MCG/ACT nasal spray 08/28/2023 Active Fluticasone-Salmet ramy 250-50 MCG/ACT aerosol powder 09/12/2023 Active gabapentin (Neurontin) 300 MG capsule 07/05/2023 Active meloxicam (Mobic) 15 MG tablet 09/16/2023 Active omeprazole (PriLOSEC) [address] capsule 09/19/2023 Active oxyCODONE (Roxicodone) 5 MG immediate release tablet 09/15/2023 Active tamsulosin (Flomax) 0.4 MG 24 hr capsule 07/25/2023 Active varenicline (Chantix) 1 MG tablet 09/01/2023 Active Social History Tobacco Use Types Packs/Day Years Used Date Smoking Tobacco: Every Day Cigarettes Smokeless Tobacco: Never Tobacco Cessation:Ready to Q uit: Not Asked; Counseling Given: Not Answered Sex and Gender Information Value Date Recorded Sex Assigned at Male 09/15/2023 12:14 PM EST Legal Sex Male 12:12 PM EST Gender Identity Male 09/15/2023 12:14 PM EST Sexual Orientation Choose not to disclose 2022 12:14 PM EST Plan of Treatment Health Maintenance Due Date Last Done Comments CT Colonography 1958 Colonoscopy 1958 Colorectal Cancer Screening 1958 Dental Oral Exam 1958 Dental Prophylaxis 1958 Dental X-Ray: Bitewings 1958 Dental X-Ray: Full Mouth 1958 Depression Screening 1958 FIT DNA/Cologuard 1958 FIT 1958 FOBT 1958 Lipid Panel 1958 SDOH Screening 1958 Sigmoidoscopy 1958 Alcohol/Substance Use Screening 1970 Hepatitis C Screening 1976 RSV Patients and Patients Aged 60 years or older (1 - Risk 60-74 years 1-dose series) 2018 COVID-19 Vaccine ( season) 2024 09/07/2023, 10/08/2022, 04/10/2022, Additional history exists Influenza Vaccine (#1) 2024 , 08/14/2021, 06/16/2020, Additional history exists Tobacco Screening 09/22/2024 09/22/2023 DTaP/Tdap/Td Vaccines (2 - Td or Tdap) 09/28/2025 09/28/2015 Zoster Vaccines Completed 10/29/2022, 06/12/2022 Pneumococcal Vaccine: 65+ Years Completed 06/25/2023, 09/02/2016, 09/28/2015, Additional history exists HIB Vaccines Aged Out No longer eligi ble based on patient's age to complete this topic HPV Vaccines Aged Out No longer eligi ble based on patient's age to complete this topic Hepatitis A Vaccines Aged Out No long er eligible based on patient's age to complete this topic Hepatitis B Vaccines Aged Out No long er eligible based on patient's age to complete this topic IPV Vaccines Aged Out No longer eligi ble based on patient's age to complete this topic Meningococcal Vaccine Aged Out No mateusz ifeoma eligible based on patient's age to complete this topic RSV under 20 months Aged Out No longe r eligible based on patient's age to complete this topic Rotavirus Vaccines Aged Out No longer eligible based on patient's age to complete this topic Insurance DENTAL - HSN FULL (MEDICAID) [place] [id number]
--- OUTSIDE RECORDS SUMMARY | 2024-11-15 17:54 | XMS_ITS | Clinical Summary ---
Author Organization [facility] Address [address] [place] [address] Care Team Providers Care Order Planner Name Role Phone Unavailable Primary Care Provider Unavailabl e Source Comments PLEASE NOTE, if this patient is a minor, it may be UNLAWFUL to discuss sensitive information that is contained in these records (such as FAMILY PLANNING, MENTAL HEALTH or SUBSTANCE ABUSE) with the minor patient's parent or other person without the patient's specific authorization.[facility] Allergies Active Allergy Reactions Criticality Noted Date Comments Morphine Palpitations 03/20/2022 Medications fluoride, sodium, (SF 5000 PLUS) 1.1 % crea Place in mouth once daily apply a thin ribbon on toothbrush. [place] thoroughly once daily for two minutes, preferably at bedtime. After use expectorate. For best results, do not eat, drink, or rinse for 30 minutes. 51 g 2 2 Active omeprazole (PRILOSEC) [address] capsule Take 20 mg by mouth every morning before breakfast Active gabapentin (NEURONTIN) 300 mg capsule Take 300 mg by mouth 3 (three) times daily Active oxyCODONE-aceta minophen (PERCOCET) 10-325 mg per tablet Take 1 Tablet by mouth every 6 (six) hours as needed for pain Active aspirin 81 mg cap Take by mouth Active ELIQUIS 2.5 mg tab 2 Active Active Problems Problem Noted Date Diagnosed Date Intracranial aneurysm 05/03/2024 Seizure ([facility]) 05/03/2024 Bursitis of left knee 06/20/2022 Chronic pain 03/26/2022 Social History Tobacco Use Types Packs/Day Years Used Date Smoking Tobacco: Every Day Smokeless Tobacco: Never Social Connections Answer Date Recorded Connectedness 0 07/02/2024 Financial Resource Strain Answer Date R ecorded Financial Resource Strain 0 2021 Stress Answer Date Recorded Stress 0 10/31/2021 Physical Activity Answer Date Recorded Physical Activity 0 10/31/2021 Food Insecurity Answer Date Recorded Food 0 07/15/2024 Transportation Needs Answer Date Record ed Transportation 0 10/31/2021 Housing Stability Answer Date Recorded Housing 0 10/31/2021 Safety and Environment Answer Date Tristan rded Safety 0 10/31/2021 Utilities Answer Date Recorded Utilities 0 10/31/2021 Employment Answer Date Recorded Stress 0 07/02/2024 Sex and Gender Information Value Date Recorded Sex Assigned at Male 03/20/2022 8:07 AM PDT Legal Sex Male 7:38 AM PST Gender Identity Male 03/20/2022 8:07 AM PDT Sexual Orientation Straight 03/20/2022 8: 07 AM PDT Last Filed Vital Signs Vital Sign Reading Time Taken Comments Blood Pressure 117/81 07/02/2024 10:13 AM EDT Pulse 59 07/02/2024 10:13 AM EDT Temperature - - Respiratory Rate - - Oxygen Saturation - - Inhaled Oxygen Concentration - - Weight - - Height - - Body Mass Index - - Plan of Treatment Upcoming Encounters Date Type Department Care Team (Late st Contact Info) Description 12/16/2024 1:00 PM EST Office Visit [facility] [address] [place] [phone] Jeaneth Chavez [address] [place] [address] Health Maintenance Due Date Last Done Comments Dental FMX/Pano 1958 Diabetes Screening 1958 Hepatitis C Screening 1958 Lipid Screening 1958 Tobacco Cessation Counseling (#1) 1958 Urine Drug Screen 1958 Imm-DTaP/Tdap/Td (1 - Tdap) 1977 Imm-Pneumococcal 65+ (1 of 2 - PCV) 1977 CT Colonography 2003 Colonoscopy 2003 Colorectal Cancer Screening 2003 FIT/gFOBT 2003 Fecal DNA 2003 Flexible Sigmoidoscopy 2003 Imm-Zoster, Recombinant (1 of 2) 2008 Abdominal Aortic Aneurysm Screening 2023 Falls Prevention 2023 Dental Perio Charting 02/07/2024 02/04/2023, 022 [id number] ( season) 2024 Imm-Influenza (#1) 2024 Alcohol and Drug Screen 10/20/2024 Depression Annual Screen 10/20/2024 Dental BW 04/03/2025 04/01/2024, 01/18, 03/26/2022 Dental Examination 04/03/2025 04/01/2024, 0 02/04/2023, 03/26/2022 Dental Prophy 04/16/2025 04/14/2024, 01/18, 03/26/2022 Hypertension Screening (#1) 07/02/2025 Procedures Procedure Name Priority Date/Time Associated Diagnosis Comments Full PROPHYLAXIS - ADULT Routine 024 9:00 AM EDT Encounter for dental examination BITEWINGS - FOUR RADIOGRAPHIC IMAGES Routine 04/01/2024 10:20 AM EDT Excessive attrition of teeth, localized Caries Encounter for dental examination PERIODIC ORAL EVALUATION ESTABLISHED PATIENT Routine 04/01/2024 10:20 AM EDT Caries Encounter for dental examination COMP PERIODONTAL EVALUATION - NEW/EST PATIENT Routine 02/04/2023 11:00 AM EDT Encounter for dental examination and cleaning with abnormal findings from Last 3 Months or Most Recently Relevant to Health Maintenance Insurance HEALTH SAFETY NET DENTAL
--- OUTSIDE RECORDS SUMMARY | 2024-11-15 17:54 | XMS_ITS | Patient Health Record ---
Author Organization [facility] Address [address] [place] [address] Care Team Providers Care Roll Dough Divider Name Role Phone Zuri Feldman MD Primary [...] Problem Colon cancer screening (Z12.11) Active confirmed [id number] Problem Encounter for other preprocedural examination (Z01.818) Active confirmed [id number] Problem USP (current) use of aspirin (Z79.82) Active confirmed [id number] PLAN OF TREATMENT Future Test Test Name Order Date COLONOSCOPY 12/24/2017 Next Appt Details Provider Name:Tone jeffers , 11/22/2024 01:15:00 PM, [address] [place] [address], [address], [place], [address], Insurance Providers Payer Name Payer Address Payer Phone Subscriber Number Group Number Insured Name Patient Relationship to Insured Coverage Start Date Coverage End Date [facility] [address] [place] [phone] [id number] TRACIE HOWE Self - patient is the insured MEDICAID OF [facility] [address] [place] [address] [id number] TRACIE HOWE Self - patient is the insured MEDICAL (GENERAL) HISTORY Medical History History ICD Code elevated cholesterol aneurysm in brain lung nodule COPD stroke 2014 Denies CA,DM,renal disease left subclavian artery occlusion Surgical History Surgery Date(Month/Year) right knee replacement repair of fracture femur on right side x 2 angiogram of brain and blood vessels
== END 2024-11-15 13:52 | disposition home or self-care (01) ==
PROVIDERS: PCP Internal Medicine; Visit Provider Internal Medicine
DX: J43.9 Emphysema, unspecified (principal); J98.11 Atelectasis; J02.9 Acute pharyngitis, unspecified
CPT/HCPCS: 99213

== ENCOUNTER → 2024-11-15 13:12 | Outpatient (BNVA) | payer MEDICARE, SELFPAY | PROVIDERS: PCP Internal Medicine; Visit Provider Internal Medicine | DX: J43.9 Emphysema, unspecified (principal); J81.1 Chronic pulmonary edema; J02.9 Acute pharyngitis, unspecified; Z87.891 Personal history of nicotine dependence | CPT/HCPCS: 99212 ==

== ENCOUNTER 2024-11-17 11:37 | Outpatient (REF) | payer MEDICARE, SELFPAY ==
--- OUTSIDE RECORDS SUMMARY | 2024-11-17 14:02 | XMS_ITS | Encounter Summary ---
Author Organization [facility] Address [address] [place] [address] Care Team Providers Care Director Of Vocational Training Name Role Phone Unavailable Primary Care Provider Unavailabl e Encounter Details Date Type Department Care Team (Late st Contact Info) Description 03/28/2022 Dental Interim Note [facility] [address] [place] [address] Anneliese Moreno, DDS [address] [place] [address] Social History Tobacco Use Types Packs/Day Years [...] Description 12/16/2024 1:00 PM EST Office Visit [facility] [address] [place] [address] Jeaneth Chavez [address] [place] [phone] documented as of this encounter Visit Diagnoses Not on filedocumented in this encounter
--- OUTSIDE RECORDS SUMMARY | 2024-11-17 14:02 | XMS_ITS | Clinical Summary ---
Author Organization [employer] Address [address] [facility] [address] [place] [address] Care Team Providers Care Senior Corporate Recruiter Name Role Phone Unavailable Primary Care Provider [...] Zoster Vaccines Completed 10/29/2022, 06/12/2022 Pneumococcal Vaccine: 50+ Years Completed 06/25/2023, 09/02/2016, 09/28/2015, Additional history [...] - HSN FULL (MEDICAID) [place] [id number]
--- OUTSIDE RECORDS SUMMARY | 2024-11-17 14:02 | XMS_ITS | Clinical Summary ---
Author Organization [facility] Address [address] [place] [address] Care Team Providers Care Animal Nutritionist Name Role Phone Unavailable Primary Care Provider [...] daily apply a thin ribbon on toothbrush. [place] thoroughly once daily for two minutes, preferably [...] Date Diagnosed Date Intracranial aneurysm 05/03/2024 Seizure ([facility]) 05/03/2024 Bursitis of left knee 06/20/2022 Chronic [...] Description 12/16/2024 1:00 PM EST Office Visit [facility] [address] [place] [phone] Jeaneth Chavez [address] [place] [address] Health Maintenance Due Date Last Done Comments [...] 2023 Dental Perio Charting 02/07/2024 02/04/2023, 022 [id number] ( season) 2024 Imm-Influenza (#1) 2024 Alcohol [...]
--- OUTSIDE RECORDS SUMMARY | 2024-11-17 14:02 | XMS_ITS | Patient Health Record ---
Author Organization [facility] Address [address] [place] [address] Care Team Providers Care Sr. Merchandise Planner Name Role Phone Zuri Feldman MD [...] Problem Colon cancer screening (Z12.11) Active confirmed 092023161 Problem Encounter for other preprocedural examination (Z01.818) Active confirmed [id number] Problem retirement (current) use of aspirin (Z79.82) Active confirmed [id number] PLAN OF TREATMENT Future Test Test Name Order Date COLONOSCOPY 12/24/2017 Next Appt Details Provider Name:Tone jeffers , 11/22/2024 01:15:00 PM, [address] [place] [address], [address], [place], [address], Insurance Providers Payer Name Payer Address Payer Phone Subscriber Number Group Number Insured Name Patient Relationship to Insured Coverage Start Date Coverage End Date [facility] [address] [place] [phone] [id number] TRACIE HOWE Self - patient is the insured MEDICAID OF [facility] [address] [place] [address] [id number] TRACIE HWOE Self - patient is the insured MEDICAL (GENERAL) HISTORY Medical History History ICD Code elevated cholesterol aneurysm in brain lung nodule COPD stroke 2014 Denies [place],DM,renal disease left subclavian artery occlusion Surgical History Surgery Date(Month/Year) right knee replacement repair of fracture femur on right side x 2 angiogram of brain and blood vessels
[2024-11-17 14:31] LABS: Prostate Specific Antigen 6.36 ng/mL (<0.05-4.0)
== END 2024-11-17 11:38 | disposition home or self-care (01) ==
LOC: HO.HMGCLDS 11:37
PROVIDERS: PCP Internal Medicine; Visit Provider Urology
DX: R97.20 Elevated prostate specific antigen [PSA] (principal); Z12.5 Encounter for screening for malignant neoplasm of prostate
CPT/HCPCS: 36415; 84153

== ENCOUNTER 2024-11-19 11:26 | Outpatient (AMB) | payer MEDICARE, SELFPAY ==
--- NOTE | 2024-11-19 11:33 | A.OFFVIS_ITS ---
Intake Visit Reasons: 6m/PSA(set) Intake Note: Patient is present for 6M/PSA Urology Medication:TAMSULOSIN,VITAMIN B12 Antibiotic Allergy:ROSUVASTATIN Blood Thinner:ASPIRIN,APIXABAN Civil Engineering Manager Required: No Allergies divalproex sodium [Depakote] Allergy (Unknown, Verified 11/19/24 11:34) Unknown rosuvastatin Allergy (Unknown, Verified 11/19/24 11:34) SOB HPI Comments Details: Stas is a pleasant male. He is a patient of Dr. Feldman. He is seen for the following urologic conditions - elevated PSA - lower urinary tract Six-month follow-up PSA PSA continues to rise Would suggest prostate biopsy Has a number of other medical conditions concurrent. This includes thrush from inhaler, hip replacement proximally 4 months ago. Will start finasteride and repeat PSA in 3 months. If persistent elevation will plan for biopsy. PSA 6.4 Lower tract symptoms PSA - 05/09 3.5, 06/11 5.0, 04/12 4.9, 11/13 6.4 Current therapy tamsulosin [facility] Medical History (Updated 11/15/24 @ 13:59 by Rey Oneil MD) Pharyngitis COPD (chronic obstructive pulmonary disease) Osteoarthritis of right hip Arthritis Abdominal hernia Numbness Habitual snoring Atelectasis of left lung COPD (chronic obstructive pulmonary disease) Tinea cruris Pes anserinus bursitis of left knee Upper respiratory tract infection Rib fractures Annual physical exam Contusion of chest Back strain Osteoarthritis of right hip Right hip pain Right middle lobe pulmonary infiltrate SOB (shortness of breath) Sinus congestion Overweight (BMI 25.0-29.9) Urgency of micturition Carpal tunnel syndrome Femoral fracture Pulmonary nodule BPH (benign prostatic hyperplasia) Seizure disorder Insomnia Vitamin D deficiency Impaired glucose tolerance Hypercholesterolemia Anxiety GERD (gastroesophageal reflux disease) Polysubstance abuse Left subclavian artery occlusion Brain aneurysm CVA (cerebral vascular accident) Vocal cord polyp Vitamin B12 deficiency Surgical History History of nasal surgery H/O colonoscopy Stenosis of subclavian bypass History of surgery History of orthopedic surgery History of knee replacement procedure of right knee Family History Father CAD (coronary artery disease) Kidney malignancy Mother Myocardial infarction Brother Prostate cancer Social History Household Members: Other Household Members Other:: roomate Housing: Other Housing Other:: trailer Are you a primary managed care analyst to a significant other at home: No Do you presently have visiting nurse or other home services: Yes (electroplater helper) 75 years or older and lives alone: No Alcohol intake: current Alcohol intake frequency: 0-2 drinks per day Alcohol type: beer Comment: 4 drinks last night Patient Tobacco Use Status: Former Tobacco user Tobacco use type: Cigarette Cigarette Packs Per Day: 0.5 Cigarettes Per Day: 6 Years Smoked: 50, stopped 12/29/2023 on chantix e-Cigarette/Vaping Use: Never Used Second Hand Smoke Exposure: Yes Substance Use Type: Marijuana service: No Current occupational status: unemployed Cognitive needs: No Hearing needs: No Vision needs: Yes Review of Systems Const Denies chills and Denies fever(s) Card Reports no additional complaints and Denies syncope Resp Denies cough GI Denies abdominal pain and Denies heartburn Reports as per HPI and Denies change in libido Neuro Denies syncope Psych Denies change in libido Endo Denies change in libido Physical Exam Const General: cooperative, healthy appearing, comfortable and no acute distress Orientation/consciousness: patient oriented x3 HEENT Face and sinus: Yes normal facial exam Mouth: moist mucous membranes Neck Neck: Yes normal visual inspection, Yes full ROM and Yes trachea midline Chest Chest palpation & inspection: normal inspection of the chest Resp Effort & Inspection: normal respiratory effort, able to speak in complete sentences and no respiratory distress GI Inspection: Yes normal to inspection Back/Spine/Pelvis Cervical Spine: normal cervical lordosis Thoracic/Lumbar Spine: thoracic and lumbar spine normal to inspection Skin General skin exam: no rashes or lesions noted Neuro General: patient oriented x3, gait normal, tone normal and moves all extremities Extrem General: Yes normal to inspection and Yes capillary refill normal Assessment & Plan Assessment & Plan (1) BPH (benign prostatic hyperplasia): Code(s): N40.0 - Benign prostatic hyperplasia without lower urinary tract symptoms Category: Medical Qualifiers: Lower urinary tract symptom presence: symptoms present Lower urinary tract symptom detail: urinary frequency Qualified Code(s): N40.1 - Benign prostatic hyperplasia with lower urinary tract symptoms; R35.0 - Frequency of micturition (2) PSA elevation: Code(s): R97.20 - Elevated prostate specific antigen [PSA] Category: Medical Plan Three-month follow-up check PSA Orders: Orders PSA,Total (Free>4and<10) 3 Months R97.20 - Elevated prostate specific antigen [PSA] Medications: New finasteride 5 mg PO DAILY 90 days 90 tabs 1RF R97.20 - Elevated prostate specific antigen [PSA] Patient Instructions: Imaging studies, laboratory and physical exam results were discussed and reviewed in detail. No major barriers to patient understanding were identified. An opportunity to ask questions regarding the treatment plan was provided. All questions were answered. The patient expressed understanding and agreement with the above treatment plan. The patient is aware they should contact our office by phone for worsening of their current condition or the appearance of new urologic symptoms. Compliance is encouraged with any medications and followup testing that is ordered. It is a privilege to participate in the urologic care of your patient. If you have any questions or concerns regarding treatment for the above conditions, or other urologic issues, please do not hesitate to contact me. The office telephone contact is [phone]. This note is constructed using voice recognition software. While every effort has been made to ensure accuracy community service officer errors may have been included. Yours sincerely, Dr Siddharth Boss MD, [facility] - Urology Providers of Expert, Compassionate Care for the Genitourinary System Coding Level of Care Code Est Pt Level 4 (11582) Diagnoses Benign prostatic hyperplasia with urinary frequency N40.1; R35.0 Lower urinary tract symptom presence: symptoms present Lower urinary tract symptom detail: urinary frequency PSA elevation R97.20
--- OUTSIDE RECORDS SUMMARY | 2024-11-19 12:12 | XMS_ITS | Encounter Summary ---
Author Organization [facility] Address [address] [place] [address] Care Team Providers Care Industrial Roof Plumber Name Role Phone Unavailable Primary Care Provider Unavailabl e Encounter Details Date Type Department Care Team (Late st Contact Info) Description 03/28/2022 Dental Interim Note [facility] Dental [address] [place] [address] Anneliese Moreno, DDS [address] [place] [address] Social History Tobacco Use Types Packs/Day Years [...] Description 12/16/2024 1:00 PM EST Office Visit [facility] Dental [address] [place] [address] Jeaneth Chavez [address] [place] [id number] documented as of this encounter Visit Diagnoses Not on filedocumented in this encounter
--- OUTSIDE RECORDS SUMMARY | 2024-11-19 12:12 | XMS_ITS | Clinical Summary ---
Author Organization [facility] Address [address] [place] [address] Care Team Providers Care Retail Administrative Assistant Name Role Phone Unavailable Primary Care Provider [...] - HSN FULL (MEDICAID) [place] [id number]
--- OUTSIDE RECORDS SUMMARY | 2024-11-19 12:12 | XMS_ITS | Clinical Summary ---
Author Organization [facility] Address [address] [place] [address] Care Team Providers Care Concessionist Name Role Phone Unavailable Primary Care Provider [...] daily apply a thin ribbon on toothbrush. [place] thoroughly once daily for two minutes, preferably [...] Date Intracranial aneurysm 05/03/2024 Seizure ([facility]) 05/03/2024 Bursitis of left knee [...] Description 12/16/2024 1:00 PM EST Office Visit [facility] Dental [address] [place] [phone] Jeaneth Chavez [address] [place] [address] Health Maintenance Due Date Last Done Comments [...] 2023 Dental Perio Charting 02/07/2024 02/04/2023, 022 [id number] ( season) 2024 Imm-Influenza (#1) 2024 Alcohol [...]
== END 2024-11-19 12:05 | disposition home or self-care (01) ==
PROVIDERS: PCP Internal Medicine; Visit Provider Urology
DX: N40.1 Benign prostatic hyperplasia with lower urinary tract symptoms (principal); R35.0 Frequency of micturition; R97.20 Elevated prostate specific antigen [PSA]
CPT/HCPCS: 99214

== ENCOUNTER → 2024-11-19 11:26 | Outpatient (BNVA) | payer MEDICARE, OTHER, SELFPAY | PROVIDERS: PCP Internal Medicine; Visit Provider Urology | DX: N40.1 Benign prostatic hyperplasia with lower urinary tract symptoms (principal); R35.0 Frequency of micturition; R97.20 Elevated prostate specific antigen [PSA] | CPT/HCPCS: 99212 ==

== ENCOUNTER 2024-12-15 14:25 | Outpatient (AMB) | payer MEDICARE, MEDICAID, SELFPAY ==
[2024-12-15 14:27] VITALS: BP 126/58; PULSE 92; O2SAT 96; BMI 31.3
--- NOTE | 2024-12-15 14:27 | A.OFFVIS_ITS ---
Vital Signs 12/15/24 14:27 Height 5 ft 8 in Weight 206 lb 2.115 oz BMI 31.3 BP 126/58 L Blood Pressure Location Rt brachial Position Sitting Pulse 92 Pulse Source Pulse Oximeter Pulse Oximetry (%) 96 Oxygen Delivery Method Room Air Intake Visit Reasons: Colonscopy - [place] - 12/31 Allergies divalproex sodium [Depakote] Allergy (Unknown, Verified 12/15/24 14:37) Unknown rosuvastatin Allergy (Unknown, Verified 12/15/24 14:37) SOB finasteride Allergy (Intermediate, Uncoded 12/15/24 14:37) Hives Medication List - Last Reconciled 12/15/24 by Rey Oneil MD [shower chair As directed] acetaminophen 650 mg (2 x 325 mg) PO Q6H PRN 30 days albuterol sulfate 2.5 mg (3 mL) inhalation QID PRN 30 days albuterol sulfate 90 mcg/actuation 2 puffs PO Q6H PRN NS alprazolam 0.25 mg PO BEDTIME PRN apixaban (Eliquis) 2.5 mg PO BID aspirin 81 mg PO DAILY atorvastatin 80 mg PO BEDTIME bupropion HCl SR (Wellbutrin SR) 150 mg PO BID celecoxib (Celebrex) 200 mg PO ONCE PRN cyanocobalamin (vitamin B-12) 1,000 mcg PO DAILY dutasteride 0.5 mg PO DAILY fluticasone propionate 50 mcg/actuation 2 sprays intranasal DAILY gabapentin 600 mg (2 x 300 mg) PO TID 90 days ipratropium-albuterol 0.5 mg-3 mg(2.5 mg base)/3 mL 3 mL inhalation Q4H PRN 30 days miconazole nitrate 2% (Zeasorb AF) 1 appl topical BID PRN omeprazole 20 mg PO BID@0630,1630 tamsulosin 0.4 mg PO DAILY tramadol 50 mg PO BID PRN 5 days umeclidinium 62.5 mcg/actuation (Incruse Ellipta) 1 inh inhalation DAILY 30 days [WALKER As directed] Do you need a note to return to daycare/school/sports/work: No HPI HPI Colonscopy - [place] - 12/31: Details: TRACIE IS 64 YEARS OLD GENTLEMAN, CURRENT SMOKER, HAS DIAGNOSIS OF CHRONIC OBSTRUCTIVE PULMONARY DISEASE. ALONG WITH MANY OTHER COMORBIDITIES. HE HAS IMPAIRED LOCOMOTION AND WALKS WITH A WALKER. CONTINUES TO HAVE SHORTNESS OF BREATH ON EXERTION, AND INTERMITTENT COUGH. HE STILL FEELS THAT THERE IS SOME MUCUS IN HIS THROAT THAT HE CAN NOT CLEAR UP, I THINK THIS IS BEING CAUSED BY HIS ONGOING SMOKING, EVEN THOUGH HE CLAIMS THAT HE HAS CUT DOWN SMOKING TO 3-4 CIGARETTES A DAY. THERE IS NO HISTORY OF RECENT INFECTION. ON HIS LAST VISIT HE WAS EMPIRICALLY TREATED FOR POSSIBLE ORAL CANDIDIASIS AND HE HAS COMPLETED THE COURSE OF [place]STATIN SWISHES. HE DOES NOT USE ADVAIR ANYMORE. STILL USING INCRUSE ELLIPTA ONCE A DAY AND IPRATROPIUM-ALBUTEROL SOLUTION IN THE NEBULIZER UP TO 3 TIMES A DAY. [facility] Medical History (Updated 12/15/24 @ 14:55 by Rey Oneil MD) Pharyngitis COPD (chronic obstructive pulmonary disease) Osteoarthritis of right hip Arthritis Abdominal hernia Numbness Habitual snoring Atelectasis of left lung COPD (chronic obstructive pulmonary disease) Tinea cruris Pes anserinus bursitis of left knee Upper respiratory tract infection Rib fractures Annual physical exam Contusion of chest Back strain Osteoarthritis of right hip Right hip pain Right middle lobe pulmonary infiltrate SOB (shortness of breath) Sinus congestion Overweight (BMI 25.0-29.9) Urgency of micturition Carpal tunnel syndrome Femoral fracture Pulmonary nodule BPH (benign prostatic hyperplasia) Seizure disorder Insomnia Vitamin D deficiency Impaired glucose tolerance Hypercholesterolemia Anxiety GERD (gastroesophageal reflux disease) Polysubstance abuse Left subclavian artery occlusion Brain aneurysm CVA (cerebral vascular accident) Vocal cord polyp Vitamin B12 deficiency Surgical History History of nasal surgery H/O colonoscopy Stenosis of subclavian bypass History of surgery History of orthopedic surgery History of knee replacement procedure of right knee Family History Father CAD (coronary artery disease) Kidney malignancy Mother Myocardial infarction Brother Prostate cancer Social History Household Members: Other Household Members Other:: roomate Housing: Other Housing Other:: trailer Are you a primary account executive healthcare to a significant other at home: No Do you presently have visiting nurse or other home services: Yes (technical support agent) 75 years or older and lives alone: No Alcohol intake: current Alcohol intake frequency: 0-2 drinks per day Alcohol type: beer Comment: 4 drinks last night Patient Tobacco Use Status: Former Tobacco user Tobacco use type: Cigarette Cigarette Packs Per Day: 0.5 Cigarettes Per Day: 6 Years Smoked: 50, stopped 12/29/2023 on chantix e-Cigarette/Vaping Use: Never Used Second Hand Smoke Exposure: Yes Substance Use Type: Marijuana service: No Current occupational status: unemployed Cognitive needs: No Hearing needs: No Vision needs: Yes Review of Systems Const All systems reviewed & are unremarkable except as noted in HPI and below Eyes Reports no additional complaints ENT Reports no additional complaints Card Denies chest pain, Denies irregular heart rhythm and Denies leg edema Resp Reports as per HPI GI Reports constipation and Reports heartburn Reports no additional complaints Musc Reports arthralgias (HIPS) Skin/Breast Reports system reviewed and no additional complaints, except as documented Neuro Reports no additional complaints Psych Reports no additional complaints Endo Reports no additional complaints Sarkis/Lymph Reports no additional complaints Physical Exam Vital Signs: Last Vital Signs Pulse 92 12/15/24 14:27 Pulse Ox 96 12/15/24 14:27 Oxygen Delivery Method Room Air 12/15/24 14:27 BMI result Body Mass Index 31.3 Const General: comfortable, no acute distress, alert and awake Orientation/consciousness: patient oriented x3 HEENT Head: Yes normal to inspection General nose exam: No nasal polyps present and No nasal discharge present Face and sinus: Yes sinuses nontender Mouth: oropharynx normal (ON THIS VISIT I DO NOT SEE ANY ERYTHEMA OR SWELLING OR ULCERS IN HIS MOUTH.) Throat: Yes posterior oropharynx normal Eyes General: appearance normal, both eyes and all related structures Neck Other: SCAR ON THE LEFT SIDE FROM PREVIOUS CAROTID ENDARTERECTOMIES RECENT REVISION OF THE SURGERY. Neck: Yes normal visual inspection, Yes no lymphadenopathy, Yes trachea midline and Yes no JVD Thyroid: Thyroid normal Chest Chest palpation & inspection: normal inspection of the chest (HIS SURGICAL SCAR IN THE LEFT PECTORAL AREA FROM RECENT VASCULAR SURGERY), normal palpation of entire chest wall and no tenderness Resp Other: PERCUSSION NOTE IS RESONANT, BREATH SOUNDS ARE DISTANT AND ESPECIALLY DECREASED OVER THE BASILAR AREAS NO CREPITATIONS OR WHEEZES ARE HEARD TODAY . Cardio Palpation: normal PMI Rate: regular rate Rhythm: regular rhythm Heart sounds: no gallops and no murmurs GI Palpation (GI): Soft to palpation, nontender, No hepatosplenomegaly present and no masses Auscultation: normal bowel sounds Back/Spine/Pelvis Thoracic/Lumbar Spine: thoracic and lumbar spine normal to inspection Skin General skin exam: no rashes or lesions noted Neuro General: patient oriented x3 and no focal motor deficits Cranial nerves: Yes CN's II-XII intact bilaterally Extrem General: Yes normal to inspection, Yes no clubbing, cyanosis or edema and Yes no calf tenderness Psych Appearance: grossly normal and well kempt Speech and movement: Normal speech and movement present Assessment & Plan Assessment & Plan (1) COPD (chronic obstructive pulmonary disease): Comment: PATIENT HAS MODERATE DEGREE OF CHRONIC OBSTRUCTIVE PULMONARY DISEASE. Explained that his chronic cough and shortness of breath on exertion is secondary to COPD. Code(s): J44.9 - Chronic obstructive pulmonary disease, unspecified Category: Medical Qualifiers: COPD type: emphysema Emphysema type: unspecified Qualified Code(s): J43.9 - Emphysema, unspecified Plan: CONTINUE TO USE INCRUSE ELLIPTA 1 INHALATION DAILY CONTINUE IPRATROPIUM-ALBUTEROL SOLUTION IN THE NEBULIZER AND USE 3 TIMES A DAY. (2) Smoker: Comment: HE DOES HAVE LONGSTANDING HISTORY OF SMOKING, ON HIS LAST VISIT HE HAD STATED THAT HE HAS QUIT SMOKING. BUT TODAY HE ADMITS HE STILL SMOKES ABOUT 3-4 CIGARETTES A DAY. Code(s): F17.200 - Nicotine dependence, unspecified, uncomplicated Category: Social Hx Plan: I COUNSELED HIM AGAIN AND TOLD HIM THAT HIS ONGOING IRRITATION IN THE THROAT AND COUGH IS DEFINITELY PROMOTED BY CIGARETTE SMOKING. IT IS VERY IMPORTANT FOR HIM TO QUIT SMOKING COMPLETELY. (3) SOB (shortness of breath): Comment: HE WALKS. SLOW AND USES WALKER HE DOES GET SOME SHORTNESS OF BREATH ON WALKING. THIS IS ALL SECONDARY TO HIS CHRONIC OBSTRUCTIVE PULMONARY DISEASE Code(s): R06.02 - Shortness of breath Category: Medical Plan: CONTINUE THE TREATMENT FOR COPD DESCRIBED ABOVE Plan PULMONARY CLEARANCE PATIENT IS TO UNDERGO COLONOSCOPY , FROM PULMONARY POINT OF VIEW HE IS STABLE EXPECTED AND I DO NOT SEE ANY CONTRAINDICATION AT THIS TIME. Coding Level of Care Code Est Pt Level 3 (38535) Diagnoses Pulmonary emphysema, unspecified emphysema type J43.9 COPD type: emphysema Emphysema type: unspecified Smoker F17.200 SOB (shortness of breath) R06.02
--- OUTSIDE RECORDS SUMMARY | 2024-12-15 17:48 | XMS_ITS | Encounter Summary ---
Author Organization [facility] Address [address] [place] [address] Care Team Providers Care Biblical Studies Professor Name Role Phone Unavailable Primary Care Provider Unavailabl e Encounter Details Date Type Department Care Team (Late st Contact Info) Description 03/28/2022 Dental Interim Note [facility] Dental [address] [place] [address] Anneliese Moreno, DDS [address] [place] [address] Social History Tobacco Use Types Packs/Day Years [...] Description 12/16/2024 1:00 PM EST Office Visit [facility] Dental [address] [place] [address] Jeaneth Chavez [address] [place] [id number] documented as of this encounter Visit Diagnoses Not on filedocumented in this encounter
--- OUTSIDE RECORDS SUMMARY | 2024-12-15 17:48 | XMS_ITS ---
Author Organization [facility] Address [address] [place] [address] Care Team Providers Care Telesales Specialist Name Role Phone Zuri Feldman MD Primary Care Provider Tone Jain Jr Unavailable ALLERGIES Allergen (clinical drug ingredient) Drug/Non Drug Allergy documented on EMR Reaction Allergy Type Onset Date Status NyQuil Unknown Drug Allergy Active morphine Morphine Sulfate Unknown Drug Allergy Active DayQuil Multi-Symptom Unknown Drug Allergy Active Zypack (uncoded) Unknown Allergy Act elena REASON FOR VISIT Patient presents today for a COLON SCREENING MEDICATIONS Medication SIG (Take, Route, Frequency, Duration) Notes Start Date End Date Status Eliquis 2.5 MG Oral for 28 Act elena Tamsulosin HCl 0.4 MG Oral for 28 Active Omeprazole 20 MG Oral for 28 A ctive buPROPion HCl ER (SR) 150 MG Oral for 28 Active Nystatin 190776 UNIT/ML Mouth/Throat for 10 Active oxyCODONE HCl Active Colyte with Flavor Packs 240 GM As directed Orally Over the specified time. for 1 day(s) Active MiraLax (colon prep) 17 GM/SCOOP mixed with Gatorade or Crystal Light Orally begin at 5:00 p.m. the day before the procedure for 1 day 11/22/2024 Active ALPRAZolam 0.25 MG Oral for 20 Active Finasteride 5 MG Oral for 27 A ctive Fluticasone Propionate 50 MCG/ACT 2 spray in each nostril Nasally Once a day Active Famotidine 20 MG 1 tablet at bedtime Orally Once a day Active ZyrTEC Allergy 10 MG 1 tablet Orally Onc e a day Active Symbicort 160-4.5 MCG/ACT 2 puffs Inhala tion Twice a day Active ProAir HFA 108 (90 Base) MCG/ACT 2 puffs as needed Inhalation every 6 hrs/prn Active Aspir-81 81 MG 1 tablet Orally Once a day Active Atorvastatin Calcium 80 MG 1 tablet Oral ly Once a day Active SOCIAL HISTORY Tobacco Use: Social History [...] W/U Status Risk SNOMED Code Notes Problem Personal history of colonic polyps (Z86.0100) Active confirmed 220244762 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 anticoagulants (Z79.01) Active confirmed [id number] VITAL SIGNS Temperature 96.9 degrees Fahrenheit 11/22/19 25 Blood pressure systolic 000 mm Hg 11/22/19 25 Blood pressure diastolic 00 mm Hg 025 Height 68 in 11/22/2024 Weight 200 lbs 11/22/2024 BMI 30.41 kg/m2 11/22/2024 Encounters Encounter Location Date Provider [facility] [address] [place] [address] 11/22/2024 Tone Weir Jr Colon cancer screening Z12.11 ; vermin exterminator (current) use of anticoagulants Z79.01 and Personal history of colonic polyps Z86.0100 ASSESSMENTS Encounter Date Diagnosis Assessment Notes Treatment Notes Treatment Clinical Notes 11/22/2024 Colon cancer screening (ICD-10 - Z12.11) 11/22/2024 vermin exterminator (current) use of anticoagulants (ICD-10 - Z79.01) 11/22/2024 Personal history of colonic polyps (ICD-10 - Z86.0100) PLAN OF TREATMENT Medication Medication Name Sig Start Date Stop Date Notes MiraLax (colon prep) 17 GM/SCOOP mixed with Gatorade or Crystal Light Orally begin at 5:00 p.m. the day before the procedure for 1 day 11/22/2024 Future Test Test Name Order Date COLONOSCOPY 11/22/2024 Next Appt Details Follow Up: 1 Year, Reason: Provider Name:Tone jeffers Jr, 12/31/2024 12:30:00 PM, [address] [place] [address], [phone], Progress Notes * Examination Category Sub-Category Detail Notes General Examination GENERAL APPEARANCE: in no ac argelia distress HEAD: normocephalic EYES: sclera non-icteric NECK/THYROID: no lymphadenopathy HEART: S1, S2 normal, no mu rmurs CHEST: normal shape and exp ansion LUNGS: clear to auscultatio n bilaterally ABDOMEN: soft, nontender, non distended, bowel sounds present, no organomegaly SKIN: anicteric EXTREMITIES: no clubbing, cyanosi s, or edema PSYCH: cognitive function i ntact ORAL CAVITY: mucosa moist
--- OUTSIDE RECORDS SUMMARY | 2024-12-15 17:48 | XMS_ITS | Clinical Summary ---
Author Organization [facility] Address [address] [place] [address] Care Team Providers Care Press Tool Maker Name Role Phone Unavailable Primary Care [...] - HSN FULL (MEDICAID) [place] [id number]
--- OUTSIDE RECORDS SUMMARY | 2024-12-15 17:48 | XMS_ITS | Clinical Summary ---
Author Organization [facility] Address [address] [place] [address] Care Team Providers Care Machine Design Checker Name Role Phone Unavailable Primary Care Provider [...] daily apply a thin ribbon on toothbrush. Fenton thoroughly once daily for two minutes, preferably [...] Date Diagnosed Date Intracranial aneurysm 05/03/2024 Seizure ([facility]) 05/03/2024 Bursitis of left knee [...] Description 12/16/2024 1:00 PM EST Office Visit [facility] [address] [place] [phone] Jeaneth Chavez [address] [place] [address] Health Maintenance Due Date Last Done Comments [...] 2023 Dental Perio Charting 02/07/2024 02/04/2023, 022 [id number] ( season) 2024 Imm-Influenza (#1) 2024 Alcohol [...]
--- OUTSIDE RECORDS SUMMARY | 2024-12-15 17:48 | XMS_ITS | Patient Health Record ---
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 Name Role Phone Zuri Feldman MD Primary [...] Duration) Notes Start Date End Date Status Fluticasone Propionate 50 MCG/ACT 2 spray in each nostril Nasally Once a day Active Famotidine 20 MG 1 tablet at bedtime Orally Once a day Active Eliquis 2.5 MG Oral for 28 Act elena ZyrTEC Allergy 10 MG 1 tablet Orally Onc e a day Active Tamsulosin HCl 0.4 MG Oral for 28 Active Symbicort 160-4.5 MCG/ACT 2 puffs Inhala tion Twice a day Active Omeprazole 20 MG Oral for 28 A ctive oxyCODONE HCl Active ProAir HFA 108 (90 Base) MCG/ACT 2 puffs as needed Inhalation every 6 hrs/prn Active Colyte with Flavor Packs 240 GM As directed Orally Over the specified time. for 1 day(s) Active Aspir-81 81 MG 1 tablet Orally Once a day Active buPROPion HCl ER (SR) 150 MG Oral for 28 Active Atorvastatin Calcium 80 MG 1 tablet Oral ly Once a day Active Nystatin 166029 UNIT/ML Mouth/Throat for 10 Active ALPRAZolam 0.25 MG Oral for 20 Active Finasteride 5 MG Oral for 27 A ctive MiraLax (colon prep) 17 GM/SCOOP mixed with Gatorade or Crystal Light Orally begin at 5:00 p.m. the day before the procedure for 1 day 11/22/2024 Active IMMUNIZATIONS Vaccine Route Administration Date Status Comme nts Influenza Unknown 08/10/2024 Administered SOCIAL HISTORY Tobacco Use: Social History Observation [...] Problem Colon cancer screening (Z12.11) Active confirmed 187888488 Problem jail (current) use of anticoagulants (Z79.01) Active confirmed 042398909 Problem Encounter for other preprocedural examination (Z01.818) Active confirmed 02864799 Problem jail (current) use of aspirin (Z79.82) Active confirmed 562079187 Problem Personal history of colonic polyps (Z86.0100) Active confirmed 240951267 VITAL SIGNS Temperature 96.9 degrees Fahrenheit 11/22/2024 Blood pressure diastolic 00 mm Hg 11/22/2024 Height 68 in 11/22/2024 Blood pressure systolic 000 mm Hg 11/22/2024 Weight 200 lbs 11/22/2024 BMI 30.41 kg/m2 11/22/2024 Encounters Encounter Location Date Provider Diagnosis [facility] [address] [place] [phone] 11/22/2024 Tone Weir Jr Colon cancer screening Z12.11 ; jail (current) use of anticoagulants Z79.01 and Personal history of colonic polyps Z86.0100 ASSESSMENTS Encounter Date Diagnosis Assessment Notes Treatment Notes Treatment Clinical Notes 11/22/2024 Colon cancer screening (ICD-10 - Z12.11) 11/22/2024 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 (ICD-10 - Z79.01) 11/22/2024 Personal history of colonic polyps (ICD-10 - Z86.0100) PLAN OF TREATMENT Future Test Test Name Order Date COLONOSCOPY 12/24/2017 COLONOSCOPY 11/22/2024 Next Appt Details Provider Name:Tone jeffers Jr, 12/31/2024 12:30:00 PM, [address] [place] [address] , [place], [place], [id number], Insurance Providers Payer Name Payer Address Payer Phone Subscriber Number Group Number Insured Name Patient Relationship to Insured Coverage Start Date Coverage End Date [facility] [address] [place] [phone] [id number] TRACIE HOWE Self - patient is the insured MEDICAID OF [facility] [address] [place] [address] [id number] TRACIE HOWE Self - patient is the insured MEDICAL (GENERAL) HISTORY Medical History History ICD Code Hyperlipidemia Lung nodule COPD CVA, history of brain aneurysm Left subclavian artery occlusion BPH Colonoscopy 04/06, tubular adenomas x2, f elena-year followup Surgical History Surgery Date(Month/Year) Right knee replacement Right femur fracture repair
== END 2024-12-15 14:47 | disposition home or self-care (01) ==
PROVIDERS: PCP Internal Medicine; Visit Provider Internal Medicine
DX: J43.9 Emphysema, unspecified (principal); F17.200 Nicotine dependence, unspecified, uncomplicated; R06.02 Shortness of breath
CPT/HCPCS: 99213

== ENCOUNTER → 2024-12-15 14:25 | Outpatient (BNVA) | payer MEDICARE, MEDICAID, SELFPAY | PROVIDERS: PCP Internal Medicine; Visit Provider Internal Medicine | DX: J43.9 Emphysema, unspecified (principal); R06.02 Shortness of breath; F17.210 Nicotine dependence, cigarettes, uncomplicated | CPT/HCPCS: 99212 ==

== ENCOUNTER 2024-12-31 10:08 | Day surgery (SDC) | payer MEDICARE, MEDICAID, SELFPAY ==
--- NOTE | 2024-12-29 14:03 | P.CONAN_ITS ---
Documented by User: Tammy Allen NP 12/30/24 10:08 HPI - Anesthesia Eval Consult details Narrative: 64yo M for Colonoscopy Follows [facility] [facility] - optimized per 11/2024 office visit Per 10/2023 PAT: COPD/Smoker. Down to 4 cigs/day from 2 packs. Rescue inhaler ~ monthly. ?Seizure. None for ~ 1 year. Rare occurence, ~yearly. Does not follow neurologist or seek medical attention post seizure. GERD. Well controlled with ppi. CVA/Brain aneurysm/ Subclavian stenosis s/p redo left carotid-subclavian bypass with PTFE with Dr. Herrera on 07/19/2024. On Elquis. Follows [facility] vascular. Vocal cord polyp PMF Active Problems Active Problems: All Active Problems Pharyngitis (Acute) Pain of left lateral upper thigh (Acute) Lateral epicondylitis, right elbow (Acute) Olecranon bursitis of right elbow (Acute) Cough (Acute) Contusion of right elbow (Acute) Injury of elbow, right (Acute) Vitamin B12 deficiency (Acute) PSA elevation (Acute) History of total right hip replacement (Acute) Blister of groin with infection (Acute) Sinusitis (Acute) Preop exam for internal medicine (Acute) Headache (Acute) Wheezing (Acute) PSA elevation (Acute) Lipoma (Acute) Nipple pain (Acute) Generalized anxiety disorder (Acute) Trochanteric bursitis, right hip (Acute) Strain of right hip adductor muscle (Acute) Right thigh pain (Acute) Benign positional vertigo (Acute) Tubular adenoma of colon (Acute) Annual physical exam (Acute) Otitis externa (Acute) Hemorrhoids (Acute) Alcohol abuse (Acute) Obesity (BMI 30.0-34.9) (Acute) Rib pain on left side (Acute) Tongue lesion (Acute) Osteoarthritis of left knee (Acute) Tobacco abuse (Acute) Tinea cruris (Acute) Atelectasis of left lung (Acute) COPD (chronic obstructive pulmonary disease) (Acute) Smoker (Acute) SOB (shortness of breath) (Acute) Osteoarthritis of right hip (Acute) Right hip pain (Acute) Left subclavian artery occlusion (Acute) CVA (cerebral vascular accident) (Acute) BPH (benign prostatic hyperplasia) (Acute) Impaired glucose tolerance (Acute) Hypercholesterolemia (Acute) Anxiety (Acute) GERD (gastroesophageal reflux disease) (Acute) Past Medical History Medical History Pharyngitis COPD (chronic obstructive pulmonary disease) Osteoarthritis of right hip Arthritis Abdominal hernia Numbness Habitual snoring Atelectasis of left lung COPD (chronic obstructive pulmonary disease) Tinea cruris Pes anserinus bursitis of left knee Upper respiratory tract infection Rib fractures Annual physical exam Contusion of chest Back strain Osteoarthritis of right hip Right hip pain Right middle lobe pulmonary infiltrate SOB (shortness of breath) Sinus congestion Overweight (BMI 25.0-29.9) Urgency of micturition Carpal tunnel syndrome Femoral fracture Pulmonary nodule BPH (benign prostatic hyperplasia) Seizure disorder Insomnia Vitamin D deficiency Impaired glucose tolerance Hypercholesterolemia Anxiety GERD (gastroesophageal reflux disease) Polysubstance abuse Left subclavian artery occlusion Brain aneurysm CVA (cerebral vascular accident) Vocal cord polyp Vitamin B12 deficiency Family History Family History Father CAD (coronary artery disease) Kidney malignancy Mother Myocardial infarction Brother Prostate cancer Family history of problems with anesthesia: No Surgical History Surgical History History of nasal surgery H/O colonoscopy Stenosis of subclavian bypass History of surgery History of orthopedic surgery History of knee replacement procedure of right knee History of Problems with Anesthesia: No Social History Social History Household Members: Other Household Members Other:: roomate Housing: Other Housing Other:: trailer Are you a primary care management specialist to a significant other at home: No Do you presently have visiting nurse or other home services: No Alcohol intake: current Alcohol intake frequency: 3 or more drinks per day Alcohol type: beer Comment: 4 drinks last night Patient Tobacco Use Status: Current everyday Tobacco user Tobacco use type: Cigarette Cigarette Packs Per Day: 5 Cigarettes Per Day: 100.0 Years Smoked: 50, stopped 12/29/2023 on chantix e-Cigarette/Vaping Use: Never Used Second Hand Smoke Exposure: Yes Use of substances other than those prescribed or required for medical reasons: No Substance Use Type: Marijuana Have you been hit, kicked, punched, or otherwise hurt by someone within the past year? If so, by whom?: No Are you DNR?: No Advance Directives: No Advance Directives Information Provided: Yes Recently lost weight without trying: No Nutrition Risks: No Nutritional Risk Poor oral hygiene: No service: No Current occupational status: unemployed Cognitive needs: No Hearing needs: No Vision needs: Yes Meds Allergies Allergy/AdvReac Type Severity Reaction Status Date / Time divalproex sodium [Depakote] Allergy Unknown Unknown Verified 12/31/24 11:19 rosuvastatin Allergy Unknown SOB Verified 12/31/24 11:19 finasteride Allergy Intermediate Hives Uncoded 12/31/24 11:19 Home Medications ?Medication ?Instructions ?Recorded ?Confirmed ?Last Taken ?Type miconazole nitrate 2 % topical 1 appl topical BID PRN Rash 11/11/23 12/31/24 Unknown History powder (Zeasorb AF) apixaban 2.5 mg tablet (Eliquis) 2.5 mg PO BID 09/02/24 12/31/24 12/24/24 History Exam Pertinent Lab Results Pertinent Lab Results: Laboratory Tests 09/07/24 10:18 WBC 8.3 Hgb 13.0 L Hct 38.0 L Plt Count 217 Sodium 139 Potassium 4.6 Chloride 107 Carbon Dioxide 28 BUN 12 Creatinine 0.76 Narrative Narrative: EKG 07/2024 [id number] Ventricular Rate: 100 BPM Atrial Rate: 100 BPM P-R Interval: 142 ms QRS Duration: 74 ms Q-T Interval: 342 ms QTC Calculation(Bazett): 441 ms P [place]: 73 degrees R [place]: 15 degrees T [place]: 69 degrees Normal sinus rhythm Low voltage QRS Borderline ECG When compared with ECG of 19-JUL-2024 16:50, T wave amplitude has increased in Anterior leads Confirmed by AUSTIN RAMIREZ MD ([id number]) on 07/21/2024 1:06:27 PM ECHO 2023 Summary -The left ventricle is normal in size and wall thickness. LV endocardium is not well-visualized and the apex is foreshortened, however, the systolic function appears to be preserved with ejection fraction of 55 to 65%. No obvious regional wall motion abnormalities seen. Diastolic function is indeterminate. -The right ventricle is normal in size and function. -The left atrium is moderately to severely dilated. The right atrium is normal in size. -The aortic valve is sclerosed. There is no aortic stenosis or insufficiency. -There is mild mitral annular calcification. There is no mitral stenosis or insufficiency. -No other obvious valve disease. - There is an isolated finding of >25% respiratory variation in mitral inflow velocity, which may indicate ventricular interdependence. -The ascending aorta and aortic root are normal in size. -An accurate pulmonary artery pressure could not be obtained due to insufficient TR jet. -The inferior vena cava is normal in size at 1.6 cm with good inspiratory collapse consistent with normal right atrial pressures. - There is no pericardial effusion. Assessment and Plan Assessment Anesthesia Assessment: Chart Reviewed Final Anesthetic Review Family History of Problems with Anesthesia: No History of Problems with Anesthesia: No Documented by User: Holger Linares MD 12/31/24 12:35 [facility] Past Medical History Medical History Pharyngitis COPD (chronic obstructive pulmonary disease) Osteoarthritis of right hip Arthritis Abdominal hernia Numbness Habitual snoring Atelectasis of left lung COPD (chronic obstructive pulmonary disease) Tinea cruris Pes anserinus bursitis of left knee Upper respiratory tract infection Rib fractures Annual physical exam Contusion of chest Back strain Osteoarthritis of right hip Right hip pain Right middle lobe pulmonary infiltrate SOB (shortness of breath) Sinus congestion Overweight (BMI 25.0-29.9) Urgency of micturition Carpal tunnel syndrome Femoral fracture Pulmonary nodule BPH (benign prostatic hyperplasia) Seizure disorder Insomnia Vitamin D deficiency Impaired glucose tolerance Hypercholesterolemia Anxiety GERD (gastroesophageal reflux disease) Polysubstance abuse Left subclavian artery occlusion Brain aneurysm CVA (cerebral vascular accident) Vocal cord polyp Vitamin B12 deficiency Family History Family History Father CAD (coronary artery disease) Kidney malignancy Mother Myocardial infarction Brother Prostate cancer Surgical History Surgical History History of nasal surgery H/O colonoscopy Stenosis of subclavian bypass History of surgery History of orthopedic surgery History of knee replacement procedure of right knee Social History Social History Household Members: Other Household Members Other:: roomate Housing: Other Housing Other:: trailer Are you a primary care management specialist to a significant other at home: No Do you presently have visiting nurse or other home services: No Alcohol intake: current Alcohol intake frequency: 3 or more drinks per day Alc ohol type: beer Comment: 4 drinks last night Patient Tobacco Use Status: Current everyday Tobacco user Tobacco use type: Cigarette Cigarette Packs Per Day: 5 Cigarettes Per Day: 100.0 Years Smoked: 50, stopped 12/29/2023 on chantix e-Cigarette/Vaping Use: Never Used Second Hand Smoke Exposure: Yes Use of substances other than those prescribed or required for medical reasons: No Substance Use Type: Marijuana Have you been hit, kicked, punched, or otherwise hurt by someone within the past year? If so, by whom?: No Are you DNR?: No Advance Directives: No Advance Directives Information Provided: Yes Recently lost weight without trying: No Nutrition Risks: No Nutritional Risk Poor oral hygiene: No service: No Current occupational status: unemployed Cognitive needs: No Hearing needs: No Vision needs: Yes Meds Allergies Allergy/AdvReac Type Severity Reaction Status Date / Time divalproex sodium [Depakote] Allergy Unknown Unknown Verified 12/31/24 11:19 rosuvastatin Allergy Unknown SOB Verified 12/31/24 11:19 finasteride Allergy Intermediate Hives Uncoded 12/31/24 11:19 Home Medications ?Medication ?Instructions ?Recorded ?Confirmed ?Last Taken ?Type miconazole nitrate 2 % topical 1 appl topical BID PRN Rash 11/11/23 12/31/24 Unknown History powder (Zeasorb AF) apixaban 2.5 mg tablet (Eliquis) 2.5 mg PO BID 09/02/24 12/31/24 12/24/24 History Exam Airway Mallampati Class: II TM Dist: <=3cm Neck ROM: Full Loose/Missing/Broken Teeth: Yes and Upper Heart: ok Lungs: sat 95% ra. cta w normal exp phase. Assessment and Plan Assessment Anesthesia Assessment: Anesthesia Plan Discussed Final Anesthetic Review NPO: Yes ASA Class: IV Final Preanesthetic Review: No Changes in Pt Med Stat, Meds/Allgs Chart Reviewed, Consent Obtained/Reviewed and Anes Risks/Benef Reviewed Patient Risk: High Procedure Risk: Low Anesthetic Plan Anesthetic Plan: Agree w/ Assess. and Plan and TIVA Disposition: Standard PACU
[2024-12-31 11:22] VITALS: BP 114/75; PULSE 90; RESP 20; TEMP 36.6; O2SAT 95; BMI 30.4
[2024-12-31] MEDS: Lactated Ringers 1,000 ML 100 ML IVCONT (11:37)
--- NOTE | 2024-12-31 12:01 | P.HPSUR_ITS ---
Pre-Procedural Eval Section A - 24 Hr Update-Section A only Date of Service: 12/31/24 Section B - Complete if H&P > 30 days Chief Complaint: Encounter for screening for malignant neoplasm of Details of Present Illness: see H&P no changes Relevant Family History (Specify if Yes): No Relevant Social History: None Present Medications: see Short Stay Collaborative assessment Medical History: No relevant PMH History of Previous Operations: No relevant previous surgery Allergies: Allergies Allergy/AdvReac Type Severity Reaction Status Date / Time divalproex sodium [Depakote] Allergy Unknown Unknown Verified 12/31/24 11:19 rosuvastatin Allergy Unknown SOB Verified 12/31/24 11:19 finasteride Allergy Intermediate Hives Uncoded 12/31/24 11:19 Review of Systems Sugical H&P ROS: Negative: Constitution, Cardiovascular, Respiratory, Ne urological, Psychiatric, Hem-Onc, Allergic/Immunologic, Gastrointestinal, Genitourinary, Musculoskeletal, Integumentary, Endocrine and Eyes/Ears/Nose/Throat Exam Surgical H&P Exam: Normal: HEENT, Normal: Heart, Normal: Lungs, Normal: Extremities, Normal: Abdomen, Normal: Skin and Normal: Neurological Plan Diagnosis/Plan: Unchanged I have reviewed the history and physical and performed a pertinent physical examination on my patient. No changes have occurred unless specified. Time Spent With Patient Time: Total time managing care of this patient today ____ minutes.
--- NOTE | 2024-12-31 13:13 | P.BOP_ITS ---
Brief Operative Note Date of Service: 12/31/24 Pre-op diagnosis: screening Post-op diagnosis: same Procedure: colonoscopy Surgeon: Tone Weir MD Anesthesia: MAC Was an Applications Consultant used for this Procedure?: No Estimated blood loss (mL): 3 Pathology: other Condition: stable Disposition: PACU
[2024-12-31 13:16] VITALS: BP 117/71; PULSE 80; RESP 20; TEMP 36.6; O2SAT 94
[2024-12-31 13:34] VITALS: BP 163/94; PULSE 81; RESP 20; TEMP 36.6; O2SAT 98
--- NOTE | 2025-01-01 00:02 | OP_ITS ---
DATE OF SERVICE: 12/31/2024 SURGEON: Tone Weir MD INDICATIONS: Colon cancer screening and prior history of adenomatous colon polyps. PREOPERATIVE DIAGNOSIS: POSTOPERATIVE DIAGNOSIS: PROCEDURE PERFORMED: Colonoscopy to the terminal ileum with biopsy and snare polypectomy. ESTIMATED BLOOD LOSS: COMPLICATIONS: ANESTHESIA: ASSISTANTS: SPECIMENS: MEDICATIONS: Monitored anesthesia care. DESCRIPTION OF PROCEDURE: History and physical performed. The risks and benefits of the procedure were explained to the patient and informed consent was obtained. The patient was placed in the left lateral decubitus position. A digital rectal exam was performed and was found to be normal. The Olympus pediatric video colonoscope was introduced into the rectum and advanced to the cecum. The cecum was identified by transillumination, palpation, and identification of ileocecal valve. Examination was performed. The scope was removed. He tolerated the procedure well and was taken to recovery area in stable condition. FINDINGS: The terminal ileum was examined and appeared normal. Visualized colonic mucosa was normal. Three polyps were identified and removed with a biopsy forceps and snare. All were less than 10 mm. These were located in the cecum, right colon, and hepatic flexure. No other polyps were identified. There was mild sigmoid diverticulosis. Retroflexed examination showed moderate-sized internal hemorrhoids. The quality of the prep was good. IMPRESSION: Colon polyps. RECOMMENDATION: Follow up the biopsy results. MD BHAVESH Zhou/JEANETTE / [id number]
== END 2024-12-31 13:57 | disposition home or self-care (01) ==
PROVIDERS: PCP Internal Medicine; Visit Provider Internal Medicine Gastroenterology
PROC: 0DJD8ZZ Inspection of Lower Intestinal Tract, Via Natural or Artificial Opening Endoscopic (ICD-10-PCS; CPT 45378; principal; 2024-12-31 12:30)
DX: Z12.11 Encounter for screening for malignant neoplasm of colon (principal); Z86.0101 Personal history of adenomatous and serrated colon polyps; D12.0 Benign neoplasm of cecum; D12.2 Benign neoplasm of ascending colon; D12.3 Benign neoplasm of transverse colon; K57.30 Diverticulosis of large intestine without perforation or abscess without bleeding; K64.8 Other hemorrhoids; N40.0 Benign prostatic hyperplasia without lower urinary tract symptoms; E78.5 Hyperlipidemia, unspecified; R91.1 Solitary pulmonary nodule; J44.9 Chronic obstructive pulmonary disease, unspecified; Z86.73 Personal history of transient ischemic attack (TIA), and cerebral infarction without residual deficits; Z79.51 Long term (current) use of inhaled steroids; Z79.01 Long term (current) use of anticoagulants; Z79.82 Long term (current) use of aspirin; Z79.899 Other long term (current) drug therapy; Z98.890 Other specified postprocedural states; Z87.891 Personal history of nicotine dependence; Z56.0 Unemployment, unspecified; Z88.8 Allergy status to other drugs, medicaments and biological substances
CPT/HCPCS: 45385; 45380; 88305; J2003; J2704

== ENCOUNTER 2025-01-11 10:43 | Outpatient (AMB) | payer MEDICARE, SELFPAY ==
[2025-01-11 11:01] VITALS: BP 130/68; PULSE 95; O2SAT 95; BMI 31.9
--- NOTE | 2025-01-11 11:03 | AM.OFFVISMDC ---
Intake Vital Signs 01/11/25 11:01 Height 5 ft 8 in Weight 210 lb BMI 31.9 BP 130/68 Blood Pressure Location Rt brachial Position Sitting Pulse 95 Pulse Source Pulse Oximeter Pulse Oximetry (%) 95 Oxygen Delivery Method Room Air Intake Visit Reasons: annual exam Allergies divalproex sodium [Depakote] Allergy (Unknown, Verified 01/11/25 11:01) Unknown rosuvastatin Allergy (Unknown, Verified 01/11/25 11:01) SOB finasteride Allergy (Intermediate, Uncoded 01/11/25 11:01) Hives Medication List - Last Reconciled 01/11/25 by Zuri Feldman MD [shower chair As directed] acetaminophen 650 mg (2 x 325 mg) PO Q6H PRN 30 days albuterol sulfate 2.5 mg (3 mL) inhalation QID PRN 30 days albuterol sulfate 90 mcg/actuation 2 puffs PO Q6H PRN NS alprazolam 0.25 mg PO BEDTIME PRN apixaban (Eliquis) 2.5 mg PO BID aspirin 81 mg PO DAILY atorvastatin 80 mg PO BEDTIME bupropion HCl SR (Wellbutrin SR) 150 mg PO BID cyanocobalamin (vitamin B-12) 1,000 mcg PO DAILY dutasteride 0.5 mg PO DAILY fluticasone propionate 50 mcg/actuation 2 sprays intranasal DAILY gabapentin 600 mg (2 x 300 mg) PO TID 90 days ipratropium-albuterol 0.5 mg-3 mg(2.5 mg base)/3 mL 3 mL inhalation Q4H PRN 30 days miconazole nitrate 2% (Zeasorb AF) 1 appl topical BID PRN omeprazole 20 mg PO BID@0630,1630 tamsulosin 0.4 mg PO DAILY tramadol 50 mg PO BID PRN 5 days umeclidinium 62.5 mcg/actuation (Incruse Ellipta) 1 inh inhalation DAILY 30 days [WALKER As directed] HPI annual exam HPI Details Gastroenterology Dr. Weir Pulmonary Urology Dr. Boss Orthopedics Dr. Mobley. Brother is handling money. patient states is confused. deny therapist [facility] Medical History (Updated 01/11/25 @ 11:43 by Zuri Feldman MD) SOB (shortness of breath) Atelectasis of left lung Anxiety Smoker Pharyngitis COPD (chronic obstructive pulmonary disease) Osteoarthritis of right hip Arthritis Abdominal hernia Numbness Habitual snoring COPD (chronic obstructive pulmonary disease) Tinea cruris Pes anserinus bursitis of left knee Upper respiratory tract infection Rib fractures Annual physical exam Contusion of chest Back strain Osteoarthritis of right hip Right hip pain Right middle lobe pulmonary infiltrate Sinus congestion Overweight (BMI 25.0-29.9) Urgency of micturition Carpal tunnel syndrome Femoral fracture Pulmonary nodule BPH (benign prostatic hyperplasia) Seizure disorder Insomnia Vitamin D deficiency Impaired glucose tolerance Hypercholesterolemia GERD (gastroesophageal reflux disease) Polysubstance abuse Left subclavian artery occlusion Brain aneurysm CVA (cerebral vascular accident) Vocal cord polyp Vitamin B12 deficiency Surgical History History of nasal surgery H/O colonoscopy Stenosis of subclavian bypass History of surgery History of orthopedic surgery History of knee replacement procedure of right knee Family History Father CAD (coronary artery disease) Kidney malignancy Mother Myocardial infarction Brother Prostate cancer Social History Household Members: Other Household Members Other:: roomate Housing: Other Housing Other:: trailer Are you a primary manager primary care to a significant other at home: No Do you presently have visiting nurse or other home services: No 75 years or older and lives alone: No Alcohol intake: current Alcohol intake frequency: 3 or more drinks per day Alcohol type: beer Comment: 4 drinks last night Patient Tobacco Use Status: Current everyday Tobacco user Tobacco use type: Cigarette Cigarette Packs Per Day: 5 Cigarettes Per Day: 100.0 Years Smoked: 50, stopped 12/29/2023 on chantix e-Cigarette/Vaping Use: Never Used Second Hand Smoke Exposure: Yes Substance Use Type: Marijuana service: No Current occupational status: unemployed Cognitive needs: No Hearing needs: No Vision needs: Yes Questionnaire Medicare Wellness Checkup [age] 65-67 What gender do you identify with?: male During the past 4 weeks, how much have you been bothered by emotional problems such as feeling anxious, depressed, irritable, sad or downhearted, and blue?: moderately During the past 4 weeks, has your physical & emotional health limited your social activities with family, friends, neighbors, or groups?: extremely During the past 4 weeks, how much bodily pain have you generally had?: severe pain During the past 4 weeks, was someone available to help you if you needed & wanted help?: yes, quite a bit During the past 4 weeks, what was the hardest physical activity you could do for at least 2 minutes?: very light Can you get to places out of walking distance without help? (For eg., can you travel alone on buses, taxis or drive your car?): No Can you go shopping for groceries or clothes without someone's help?: No Can you prepare your own meals?: No Can you do your housework without help?: No Because of any health problems, do you need the help of another person with your personal care needs such as eating, bathing, dressing or getting around the house?: No Can you handle your own money without help?: No During the past 4 weeks, how would you rate your health in general?: fair During the past 4 weeks how have things been going for you?: pretty bad Are you having difficulties driving your car?: not applicable, I don't use a car Do you always fasten your seat belt when you are in a car?: yes, usually During past 4 weeks, have you been bothered by the following: never: Problems using the telephone? and Tiredness or fatigue?, seldom: Trouble eating well?, sometimes: Falling or dizzy when standing up, often: Teeth or denture problems? and always: Sexual problems? Have you fallen 2 or more times in the past year?: Yes Are you afraid of falling?: Yes Are you a smoker?: no During the past 4 weeks, how many drinks of wine, beer, or other alcoholic beverages did you have?: 6-9 drinks per week Do you exercise for about 20 minutes 3 or more times a week?: no, I usually do not exercise this much Have you been given information to help with the following?: yes: Hazards in your house that might hurt you? and yes: Keeping track of your medications? How often do you have trouble taking medicines the way you have been told to take them?: I always take medicine as prescribed How confident are you that you can control & manage most of your health problems?: not very confident What is your race?: White PHQ-9 Over the last 2 weeks, how often have you been bothered by any of the following problems? 1. Little interest or pleasure in doing things: more than half the days 2. Feeling down, depressed, or hopeless: not at all 3. Trouble falling or staying asleep, or sleeping too much: several days 4. Feeling tired or having little energy: more than half the days 5. Poor appetite or overeating: more than half the days 6. Feeling bad about yourself - or that you are a failure or have let yourself or your family down: more than half the days 7. Trouble concentrating on things, such as reading the newspaper or watching television: not at all 8. Moving or speaking so slowly that other people could have noticed. Or the opposite - being so fidgety or restless that you have been moving around a lot more than usual: several days 9. Thoughts that you would be better off or of hurting yourself in some way: not at all Total score: 10 Depression Screening Interpretation: Positive Depression Screening Done: Yes 83396 - PHQ-9 Billing: Yes Source: Developed by Drs. Basilio Esteves, Gina Sales, Zev Ambriz and colleagues, with an educational teodoro from [employer]. Thrive Questionnaire Date Thrive assessed: 01/04/25 I am a: Patient What is your living situation today?: I have a steady place to live Within the past 12 months, did the food you bought not last and you didn't have the money to get more?: Sometimes True Within the past 12 months, did you worry whether your food would run out before you got money to buy more?: Sometimes True Do you have trouble paying for medicines?: No Do you have trouble getting transportation to medical appointments?: Yes Do you have trouble paying your heating and electricity bill?: No Do you have trouble taking care of your child, family member or friend?: No Do you have trouble with day-to-day activities such as bathing, preparing meals, shopping, managing finances, etc.?: Yes Are you currently unemployed and looking for a job?: No Are you interested in more education?: No Currently or been in a relationship where the following occur: No concerns reported THRIVE Score: 3 DANIE-7 AMB Questionnaire DANIE-7 Date DANIE - 7 assessed: 11/12/23 Feeling nervous, anxious, or on edge: 0 = Not at all Not being able to stop or control worryin = Not at all Worrying too much about different things: 0 = Not at all Trouble relaxin = Several days Being so restless that it is hard to sit still: 0 = Not at all Becoming easily annoyed or irritable: 1 = Several days Feeling afraid as if something awful might happen: 0 = Not at all Total DANIE-7 score (0-4 normal; 5-9 mild; 10-14 moderate; 15-21 severe): 2 Source: Developed by Drs. Basilio Esteves, Gina Sales, Zev Ambriz and colleagues, with an educational teodoro from [employer]. DANIE-7 Assessment Billing DANIE-7 Assessment Tool: DANIE-7 Assessment 33916 Review of Systems Const Denies poor appetite and Denies weakness Eyes Denies no additional complaints ENT Reports Normal hearing present, Denies dizziness, Denies nasal congestion, Denies tinnitus and Denies sore throat Card Denies chest pain, Denies syncope, Denies rapid heart rate and Denies dyspnea Resp Denies cough and Denies dyspnea GI Denies change in stool character, Reports constipation, Denies diarrhea, Denies nausea and Denies vomiting Denies dysuria and Denies urinary frequency Neuro Reports Normal hearing present, Denies confusion, Denies dizziness, Denies syncope and Denies weakness Psych Denies confusion Physical Exam Vital Signs: Last Vital Signs Pulse 95 01/11/25 11:01 BP 130/68 01/11/25 11:01 Pulse Ox 95 01/11/25 11:01 Oxygen Delivery Method Room Air 01/11/25 11:01 BMI result Body Mass Index 31.9 Const General: No confusion Orientation/consciousness: No confusion HEENT Head: Yes normocephalic Ears: external ears normal and TM's normal bilaterally Face and sinus: Yes normal facial exam Mouth: moist mucous membranes Throat: Yes tonsils normal Eyes Conjunctivae: conjunctivae normal Pupils: Equal, round and reactive pupils present and Pupil accommodation reflex normal Direct Ophthalmoscopy: normal light reflex Neck Neck: No lymphadenopathy Thyroid: Thyroid normal Chest Chest palpation & inspection: normal inspection of the chest Resp Effort & Inspection: normal respiratory effort and no audible wheezes Auscultation: clear to auscultation bilaterally, no crackles, no wheezes and lung sounds not diminished Cardio Rate: regular rate Rhythm: regular rhythm Peripheral pulses: radial pulses present and dorsalis pedis present GI Palpation (GI): no masses Auscultation: normal bowel sounds and normoactive bowel sounds Rectal Exam - Male: Yes deferred Skin General skin exam: no rashes or lesions noted Rashes: no rashes Neuro General: No confusion Cranial nerves: Yes Equal, round and reactive pupils present and Yes Normal hearing present Cognition (Neuro): normal cognition Gait exam (Neuro): Normal gait present Motor exam (neuro): 5/5 motor strength present throughout Deep tendon reflexes (DTR's): Right brachioradialis reflex intensity grade: 2+, Left brachioradialis reflex intensity grade: 2+, Right patellar reflex intensity grade: 2+ and Left patellar reflex intensity grade: 2+ Extrem General: No edema Assessment & Plan Assessment & Plan (1) Medicare annual wellness visit, subsequent: Code(s): Z00.00 - Encounter for general adult medical examination without abnormal findings Plan: Patient is advised to eat healthy, keep well hydrated, keep active and have adequate sleep. (2) Tobacco abuse: Code(s): Z72.0 - Tobacco use Plan: Patient is strongly advised to stop smoking. (3) Obesity (BMI 30.0-34.9): Code(s): E66.9 - Obesity, unspecified Plan: Diet and exercise (4) COPD (chronic obstructive pulmonary disease): Comment: PATIENT HAS MODERATE DEGREE OF CHRONIC OBSTRUCTIVE PULMONARY DISEASE. Explained that his chronic cough and shortness of breath on exertion is secondary to COPD. Code(s): J44.9 - Chronic obstructive pulmonary disease, unspecified Qualifiers: COPD type: emphysema Emphysema type: unspecified Qualified Code(s): J43.9 - Emphysema, unspecified Plan: Patient is being followed up by Pulmonary, advised to stop smoking patient has been prescribed inhalers Incruse DuoNeb (5) GERD (gastroesophageal reflux disease): Code(s): K21.9 - Gastro-esophageal reflux disease without esophagitis Qualifiers: Esophagitis presence: without esophagitis Qualified Code(s): K21.9 - Gastro-esophageal reflux disease without esophagitis Plan: Avoid the foods that causes that usually spicy foods, tomato products, juices, coffee, soda and foods that your sensitive to. After eating do not lie down, allow 3-4 hours before in lie down. And keep the head of bed above 30 degrees to avoid the acid from going up. Patient is advised strongly to stop smoking (6) Hypercholesterolemia: Code(s): E78.00 - Pure hypercholesterolemia, unspecified Plan: Avoid fried foods, chicken skin, eggs, butter margarine, pastries and meat. Be it pork or beef they have a lot of cholesterol LDL goal of less than 100 on atorvastatin 80 mg once a day and triglyceride of less than 150 (7) Impaired glucose tolerance: Code(s): R73.02 - Impaired glucose tolerance (oral) Plan: Decrease the amount of carbohydrate intake, pasta, bread, rice and potatoes are all sugar and that is aside from all the sweet stuff, remember that fruits are good but they are Sweet also. (8) BPH (benign prostatic hyperplasia): Code(s): N40.0 - Benign prostatic hyperplasia without lower urinary tract symptoms Qualifiers: Lower urinary tract symptom detail: urinary frequency Lower urinary tract symptom presence: symptoms present Qualified Code(s): N40.1 - Benign prostatic hyperplasia with lower urinary tract symptoms; R35.0 - Frequency of micturition Plan: Continue with tamsulosin. Concern about the elevated PSA (9) Generalized anxiety disorder: Comment: decline counselling Code(s): F41.1 - Generalized anxiety disorder Plan: Continue with present medication (10) PSA elevation: Code(s): R97.20 - Elevated prostate specific antigen [PSA] Plan: Patient is being followed up by Urology and advised biopsy if the PSA remains elevated (11) Hearing difficulty: Code(s): H91.90 - Unspecified hearing loss, unspecified ear (12) Dysphagia: Code(s): R13.10 - Dysphagia, unspecified (13) Acute bacterial pharyngitis: Code(s): J02.8 - Acute pharyngitis due to other specified organisms; B96.89 - Other specified bacterial agents as the cause of diseases classified elsewhere Plan History of Present Illness The patient is a 64-year-old male presenting with an annual well visit and management of chronic conditions. He details a history of GERD, generalized anxiety disorder, elevated PSA, COPD, and BPH. He is currently on medication for managing anxiety and BPH. The elevated PSA level recorded in October led to a recommendation for a biopsy if it continues to rise. Pulmonary function tests in September confirmed COPD without bronchodilator response. His ongoing conditions include a past CVA and left subclavian artery occlusion, along with active smoking despite continuous counseling to cease. He also addresses weight gain and ongoing lateral epicondylitis, with the latter receiving treatment through physical therapy. Recent pelvic imaging confirmed vascular calcifications and mild degenerative disc disease. The patient has mild anemia and reported episodes of pharyngeal discomfort persisting over weeks. Health Maintenance - Smoking cessation strongly advised - Pulmonary function monitoring - Regular lipid profile evaluations, currently managed with atorvastatin 80 mg daily - Annual colonoscopy, with the last one performed in 2018 showing tubular adenoma - PSA monitoring advised; biopsy recommended if levels remain elevated - Advocation for dietary and exercise interventions to aid weight management - Vaccination updated: Pneumonia, Tetanus due later this year, Flu shot administered - Sleep apnea evaluation in progress; awaiting CPAP machine - Recommendation for swallowing assessment due to pharyngeal discomfort Social History Review of Systems - Respiratory: Reports occasional shortness of breath, cough, and difficulty with smoking cessation. - Musculoskeletal: Reports right elbow pain, under current physical therapy. - Gastrointestinal: Denies heartburn but reports pharyngeal discomfort. - Neurological: Denies recent headaches or dizziness. - Urinary: Reports occasional urinary dribbling. - General: Reports weight gain. Physical Exam General: Cooperative, healthy appearing, comfortable, no acute distress and well developed Orientation: Patient oriented x3 Limitations: No limitations Head: Normal to inspection Ears: Hearing grossly normal bilaterally, but patient needs to schedule a hearing test Nose: Normal external nose present Face and sinus: Normal facial exam Eyes: Appearance normal, both eyes and all related structures Neck: Normal visual inspection and Yes full ROM Respiratory: Normal respiratory effort and able to speak in complete sentences. Clear to auscultation bilaterally, but patient reports waking up short of breath and has been advised to stop smoking Cardiovascular: Regular rate and rhythm. Normal S1 and S2 GI: Normal to inspection. Soft to palpation and nontender Skin: No rashes or lesions noted Neuro: Patient oriented x3 Extremities: Normal to inspection, but patient is undergoing physical therapy for left leg pain and uses a cane for balance Results - Labs: Mild anemia recorded (hemoglobin 13, hematocrit 38). - Tests: Pulmonary function test showing moderate obstructive ventilatory defect without bronchodilator response, suggesting emphysema - Imaging: Pelvic x-ray reports mild degenerative disc disease and right hip prosthesis positioned properly. Plan The plan involves monitoring and management of elevated PSA levels, with the possibility of a biopsy in the near future. COPD treatment will focus on smoking cessation and appropriate use of inhalers, in parallel with specialist follow-ups. Continued engagement in physical therapy to address musculoskeletal discomfort and regular check-ups for left leg mobility are crucial. Anxiety managed with medications and regular evaluations, enhanced by lifestyle modifications including diet and exercise, to aid in weight management and improve overall health metrics. Pharyngeal issues will be addressed with antibiotics as needed with further studies to evaluate swallowing. All medication compliance verified and prescriptions refilled. Patient was informed and verbally consented to the use of an ambient scribe for clinic note documentation during this visit. Discussion Notes I discussed the management plans for the patient?s elevated PSA levels, emphasizing the importance of monitoring changes with plans for further invasive evaluation if necessary. Smoking poses a significant risk to his respiratory condition; therefore, I reiterated its cessation alongside medicinal support with inhalers. I reviewed the strategy for managing GERD, musculoskeletal pain, anxiety, and potential pharyngitis. Each treatment, from antibiotics for pharyngeal discomfort to physical therapy for joint pain, was deliberated over its benefit and necessity. We discussed ongoing diagnostics, with confirmed anticipation for pulmonary follow-ups and updated vaccinations. Follow-up scheduling was outlined for each service domain engaged in his care. Patient Instructions - Cease smoking entirely to improve lung function and general health. - Continue scheduled pulmonary and urology follow-ups. - Maintain current inhaler protocol; use albuterol as needed. - Persist with physical therapy and report significant joint or muscle changes. - Follow the advised dietary and exercise regimens to manage weight. - Complete antibiotic course if prescribed for throat discomfort. - Monitor urinary symptoms and follow up as advised. - Ensure all vaccinations are up-to-date, schedule Tetanus booster as due. - Keep all future appointments with family, pulmonary, urology, and orthopedic specialists. Orders: Orders [place] barium swallow Today R13.10 - Dysphagia, unspecified [place] upper GI series Today R13.10 - Dysphagia, unspecified Referrals Speech and Hearing Referral H91.90 - Unspecified hearing loss, unspecified ear Medications: New amoxicillin-pot clavulanate 500-125 mg (Augmentin) 1 tab PO TID 21 tabs 0RF B96.89 - Other specified bacterial agents as the cause of diseases classified elsewhere, J02.8 - Acute pharyngitis due to other specified organisms Changed From tramadol 50 mg PO BID 5 days PRN 10 tabs 0RF pain To tramadol 50 mg PO BID PRN 30 tabs 0RF pain 30 days Refilled alprazolam 0.25 mg PO BEDTIME PRN 20 tabs 0RF anxiety F41.9 - Anxiety disorder, unspecified bupropion HCl SR (Wellbutrin SR) 150 mg PO BID 180 tabs 1RF Z72.0 - Tobacco use Quality Reporting (2019) Depression/Bipolar (159/160/161/177) PHQ-9: Total score: 10 Coding Level of Care Code Medicare Subsequent (G0439) Diagnoses Medicare annual wellness visit, subsequent Z00.00 Tobacco abuse Z72.0 Obesity (BMI 30.0-34.9) E66.9 Pulmonary emphysema, unspecified emphysema type J43.9 COPD type: emphysema Emphysema type: unspecified Gastroesophageal reflux disease without esophagitis K21.9 Esophagitis presence: without esophagitis Hypercholesterolemia E78.00 Impaired glucose tolerance R73.02 Benign prostatic hyperplasia with urinary frequency N40.1; R35.0 Lower urinary tract symptom detail: urinary frequency Lower urinary tract symptom presence: symptoms present Generalized anxiety disorder F41.1 PSA elevation R97.20 Hearing difficulty H91.90 Dysphagia R13.10 Acute bacterial pharyngitis J02.8; B96.89 Additional Codes DANIE-7 Assessment Billing - DANIE-7 Assessment Tool: DANIE-7 Assessment 55762 ([id number]) PHQ-9 - 41669 - PHQ-9 Billing: Yes ([id number])
== END 2025-01-11 11:50 | disposition home or self-care (01) ==
LOC: HO.HMCH 10:44
PROVIDERS: PCP Internal Medicine; Visit Provider Internal Medicine
DX: Z00.00 Encounter for general adult medical examination without abnormal findings (principal); J43.9 Emphysema, unspecified; E66.9 Obesity, unspecified; Z68.31 Body mass index [BMI] 31.0-31.9, adult; Z72.0 Tobacco use; K21.9 Gastro-esophageal reflux disease without esophagitis; E78.00 Pure hypercholesterolemia, unspecified; R73.02 Impaired glucose tolerance (oral); N40.1 Benign prostatic hyperplasia with lower urinary tract symptoms; R35.0 Frequency of micturition; F41.1 Generalized anxiety disorder; R97.20 Elevated prostate specific antigen [PSA]

== ENCOUNTER → 2025-01-11 10:43 | Outpatient (BNVA) | payer MEDICARE, SELFPAY | PROVIDERS: PCP Internal Medicine; Visit Provider Internal Medicine | DX: Z00.00 Encounter for general adult medical examination without abnormal findings (principal); E66.9 Obesity, unspecified; J43.9 Emphysema, unspecified; K21.9 Gastro-esophageal reflux disease without esophagitis; Z72.0 Tobacco use; E78.00 Pure hypercholesterolemia, unspecified; R73.02 Impaired glucose tolerance (oral); N40.1 Benign prostatic hyperplasia with lower urinary tract symptoms; R35.0 Frequency of micturition; F41.1 Generalized anxiety disorder; R97.20 Elevated prostate specific antigen [PSA]; H91.90 Unspecified hearing loss, unspecified ear; R13.10 Dysphagia, unspecified; J02.8 Acute pharyngitis due to other specified organisms; B96.89 Other specified bacterial agents as the cause of diseases classified elsewhere | CPT/HCPCS: 96127 ==

== ENCOUNTER 2025-01-24 10:50 | Outpatient (REF) | payer MEDICARE, SELFPAY ==
--- OUTSIDE RECORDS SUMMARY | 2025-01-24 12:54 | XMS_ITS | Clinical Summary ---
Author Organization [facility] Address [address] [place] [address] Care Team Providers Care Apartment Maintenance Name Role Phone Unavailable Primary Care Provider [...] - HSN FULL (MEDICAID) [place] [id number]
--- OUTSIDE RECORDS SUMMARY | 2025-01-24 12:54 | XMS_ITS ---
Author Organization [facility] Address [address] [place] [address] Care Team Providers Care Electrical Sign Wirer Name Role Phone Zuri Feldman MD Primary Care Provider Tone Jain Jr [phone] REASON FOR VISIT screening Encounters Encounter Location Date Provider Diagnosis [facility] [address] [place] [phone] 12/31/2024 Tone Weir Jr Colon cancer screening Z12.11 ; Personal history of adenomatous and serrated colon polyps Z86.0101 and Colon polyps K63.5 Assessments Encounter Date Diagnosis (ICD Code) Assessment Notes Treatment Notes Treatment Clinical Notes Section Notes 12/31/2024 Colon cancer screening (ICD-10 - Z12.11) 12/31/2024 Personal history of adenomatous and serrated colon polyps (ICD-10 - Z86.0101) 12/31/2024 Colon polyps (ICD-10 - K63.5) Plan Of Treatment No Information Progress Notes * TRACIE HOWE CDOB:[birth year] (64 yo M)Acc No.[id number]:12/31/2024 COLON WITH MAC Patient:?TRACIE HOWE Provider:?Tone Weir MD :1960???Age:64 Y???Sex:Male Sandor e:12/31/2024 Address:[address] [place] [address] [address] , [facility] Pcp:Zuri Feldman MD Subjective: * Chief Complaints: * ???1. Screening. * Medical History:? Objective: * Vitals:? Assessment: * Assessment: 1.?Colon cancer screening - Z12.11 (Primary)???2.?Personal history of adenomatous and serrated colon polyps - Z86.0101???3.?Colon polyps - K63.5??? Plan: * Treatment: * Procedure Codes:?96888 LESIO N REMOVAL COLONOSCOPY, 43649 COLONOSCOPY AND BIOPSY, Modifiers: 57 , 0529F INTRVL 3+YRS PTS CLNSCP DOCD * * The named appointment provid er may or may not be the originator of this progress note, and it is not deemed complete until electronically signed by the appointment provider. Sign off status: Pending * Provider:?Tone Weir MD Date:?0 12/31/2024 Generated for Bryan matthew/Rhett/Mireyaitting on:?01/24/2025 12:54 PM EDT
--- OUTSIDE RECORDS SUMMARY | 2025-01-24 12:54 | XMS_ITS | Patient Health Record ---
Author Organization [facility] Address [address] [place] [address] Care Team Providers Care Hurl Shaker Name Role Phone Zuri Feldman MD Primary Care Provider Tone Jain Jr Unavailable [phone] Allergies Allergen (clinical drug ingredient) Drug/Non Drug Allergy documented on EMR Reaction Allergy Type Onset Date Status NyQuil Unknown Drug Allergy Active morphine Morphine Sulfate Unknown Drug Allergy Active DayQuil Multi-Symptom Unknown Drug Allergy Active Zypack (uncoded) Unknown Allergy Act elena Results Component Value Reference Range Notes Pathology Reviewed date:01/04/2025 01:31:17 PM Interpretation: Performing Lab:[facility], [address] [place] [phone] Notes/Report: Name: Stas Howe Age/Sex: 64/M : 1960 Unit#: [id number] Attend Dr: Tone Weir MD Re12/31/24 Status : [facility] Location: [facility] Disch: SPEC : [id number] RECD : 12/31/24 STATUS: MEGAN ADAMS NUM: [id number] AGUSTIN: 12/31/24-[address] [facility] [address]: Tone Weir MD ENTERED: 12/31/24 56 SP TYPE: Surgical OTHR DR: Zuri Feldman MD ORDERED: HE Stain/9, Gross Micro L4/3 Diagnosis A. Colon, cecal poly p: Tubular adenoma; negative for high-grade dysplasia and carcinoma. B. Colon, right, jd yp: Tubular adenoma; negative for high-grade dysplasia and carcinoma. C. Colon, hepatic fl exure, polyp: Tubular adenoma; negative for high-grade dysplasia and carcinoma. Clinical History Pre-Op Dx: Screening Post-Op Dx: Colon polyps Microscopic Description Microscopic sections reviewed. Material Received A. Polyp cecum B. Right colon polyp C. Hepatic flexure polyp Gross Description Received in 3 parts. A. Received in forma mic labeled ?polyp cecum? are are 3 fragments of pink white soft tissue measuring 0.1-0.3 cm in greatest dimension which are wrapped in lens paper and entirely submitted for micros copic examination, 3 pieces in cassette A. B. Received in forma [employer] labeled ?right colon polyp? are 4 fragments of limon-white soft tissue measuring 0.3 -0.4 cm in greatest dimension which are wrapped in lens paper and entirely submitted f or microscopic examination, 4 pieces in cassette B. C. Received in forma mic labeled ?hepatic flexure polyp? is a fragment of pink-limon soft tissue measuring 0.5 cm in greatest dimension which is wrapped in lens paper and entirely submitted for micros copic examination, 1 piece in cassette C. ([facility]) CONTINUED ON NEXT PAGE Name: Stas Howe Age/Sex: 64/M : 1960 Unit#: [id number] Attend Dr: Tone Weir MD Re12/31/24 Status : [facility] Location: [facility] Disch: SPEC : [id number] RECD : 12/31/24-1340 STATUS: MEGAN ADAMS NUM: [id number] AGSUTIN: 12/31/24-[address]: Tone Weir MD ENTERED: 12/31/24 56 SP TYPE: Surgical OTHR DR: Zuri Feldman MD ORDERED: BERT Stain/9, Mejia Crane L4/3 Copies To: Tone Weir MD [facility] [address] [place], [place] [id number] Zuri Feldman MD [facility] [address] [place] [address] Signed (si gnature on file) Mariola Gamez 01/03/25 1614 END OF REPORT Reason For Referral No Information Medications Medication SIG (Take, Route, Frequency, Duration) Notes [...] Oral ly Once a day Active Nystatin 597591 UNIT/ML Mouth/Throat for 10 Active ALPRAZolam 0.25 MG Oral for 20 Active Finasteride 5 MG Oral for 27 A ctive MiraLax (colon prep) 17 GM/SCOOP mixed with Gatorade or Crystal Light Orally begin at 5:00 p.m. the day before the procedure for 1 day 11/22/2024 Active Immunizations Vaccine Route Administration Date Status Comme nts Influenza Unknown 08/10/2024 Administered Social History Tobacco Use: Social History Observation Description Date Details (start date - stop date) Former Smoker NA - NA Tobacco Use/Smoking Question Answer Notes Patient is [...] Never (0 point) Points 5 Interpretation Positive Problems Problem Type SNOMED Code ICD Code Onset Dates Problem Status W/U Status Risk Notes Problem 861995337 Colon cancer screening (Z12.11) Active confirmed Problem 755656931 senior living (curre nt) use of anticoagulants (Z79.01) Active confirmed Problem 38400881 Encounter for ot her preprocedural examination (Z01.818) Active confirmed Problem 965196963 senior living (curre nt) use of aspirin (Z79.82) Active confirmed Problem 690424913 Personal history of colonic polyps (Z86.0100) Active confirmed Vital Signs Temperature 96.9 degrees Fahrenheit 11/22/2024 Blood pressure diastolic 00 mm Hg 11/22/2024 Height 68 in 11/22/2024 Blood pressure systolic 000 mm Hg 11/22/2024 Weight 200 lbs 11/22/2024 BMI 30.41 kg/m2 11/22/2024 Encounters Encounter Location Date Provider Diagnosis [facility] [address] [place] [phone] 12/31/2024 Tone Weir Jr Colon cancer screening Z12.11 ; Personal history of adenomatous and serrated colon polyps Z86.0101 and Colon polyps K63.5 [facility] [address] [place] [phone] 11/22/2024 Tone Weir Jr Colon cancer screening Z12.11 ; 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) use of anticoagulants Z79.01 and Personal history of colonic polyps Z86.0100 [facility] [address] [place] [phone] 12/22/2024 Tone Weir Jr [facility] [address] [place] [phone] 01/04/2025 Tone Weir Jr Assessments Encounter Date Diagnosis (ICD Code) Assessment Notes Treatment Notes Treatment Clinical Notes Section Notes 12/31/2024 Colon cancer screening (ICD-10 - Z12.11) 12/31/2024 Personal history of adenomatous and serrated colon polyps (ICD-10 - Z86.0101) 11/22/2024 Colon cancer screening (ICD-10 - Z12.11) We discussed colonoscopy today. We discussed risks and benefits of the procedure today. He understands these and agrees to proceed. This will be scheduled at his convenience. He is advised to stop aspirin one week before the procedure and Eliquis 3 days before the procedure. 11/22/2024 senior living (current) use of anticoagulants (ICD-10 - Z79.01) We discussed colonoscopy today. We discussed risks and benefits of the procedure today. He understands these and agrees to proceed. This will be scheduled at his convenience. He is advised to stop aspirin one week before the procedure and Eliquis 3 days before the procedure. 12/31/2024 Colon polyps (ICD-10 - K63.5) 11/22/2024 Personal history of colonic polyps (ICD-10 - Z86.0100) We discussed colonoscopy today. We discussed risks and benefits of the procedure today. He understands these and agrees to proceed. This will be scheduled at his convenience. He is advised to stop aspirin one week before the procedure and Eliquis 3 days before the procedure. Plan Of Treatment Future Test Test Name Order Date COLONOSCOPY 12/24/2017 COLONOSCOPY 11/22/2024 Insurance Providers Payer Name Payer Address Payer Phone Subscriber Number Group Number Insured Name Patient Relationship to Insured Coverage Start Date Coverage End Date [facility] [address] [place] [phone] [id number] STAS HOWE Self - patient is the insured MEDICAID OF [facility] [address] [place] [address] [id number] STAS HOWE Self - patient is the insured Medical (General) History Medical History History ICD Code Hyperlipidemia Lung nodule COPD CVA, history of brain aneurysm Left subclavian artery occlusion BPH Colonoscopy 04/06, tubular adenomas x2, f elena-year followup Surgical History Surgery Date(Month/Year) Right knee replacement Right femur fracture repair
--- OUTSIDE RECORDS SUMMARY | 2025-01-24 12:54 | XMS_ITS ---
Author Organization [facility] Address [address] [place] [phone] Care Team Providers Care Business Advisor Name Role Phone Zuri Feldman MD Primary Care Provider Tone Jain Jr REASON FOR VISIT faxed clearance note on external fax Encounters Encounter Location Date Provider Diagnosis [facility] [address] [place] [phone] 12/22/2024 Tone Weir Jr Plan Of Treatment No Information Progress Notes * TRACIE HOWE CDOB:[birth year] (64 yo M)Acc No.[id number]:12/22/2024 Patient:?TRACIE HOWE :1960???Age:64 Y???Sex:Male Address:[address] [place] [address] [address] [facility] , [place], [address] * true * Date:? Generated for Printi ng/Fafrancesg/eTransmitting on:?01/24/2025 12:54 PM EDT
--- OUTSIDE RECORDS SUMMARY | 2025-01-24 12:55 | XMS_ITS | Clinical Summary ---
Author Organization [facility] Address [address] [place] [address] Care Team Providers Care Frozen Meat Cutter Name Role Phone Unavailable Primary Care Provider [...] daily apply a thin ribbon on toothbrush. [place] thoroughly once daily for two minutes, preferably [...] Problem Noted Date Diagnosed Date Intracranial aneurysm ([facility]) 05/03/2024 Seizure ([facility]) 05/03/2024 Bursitis of left knee 06/20/2022 Chronic pain 03/26/2022 Encounters Date Type Department Care Team Description 12/16/2024 1:00 PM EST Office Visit [facility] [address] [place] [phone] Jeaneth Chavez Caries of enamel (incipient) (Primary Dx); Caries from Last 3 Months Social History Tobacco Use Types Packs/Day Years [...] Sign Reading Time Taken Comments Blood Pressure 123/75 12/16/2024 3:03 PM EST Pulse 63 12/16/2024 3:03 PM EST Temperature - - Respiratory Rate - - Oxygen Saturation - - Inhaled Oxygen Concentration - - Weight - - Height - - Body Mass Index - - Plan of Treatment Upcoming Encounters Date Type Department Care Team (Late st Contact Info) Description 02/08/2025 1:00 PM EDT Office Visit [facility] [address] [place] [phone] Monica Cummings, DDS [address] [place] [address] 06/16/2025 1:40 PM EDT Office Visit [facility] [address] [place], [place] [phone] Jeaneth Chavez [address] [place] [address] Health Maintenance Due Date Last Done Comments [...] Aortic Aneurysm Screening 2023 Falls Prevention 2023 [id number] ( season) 2024 Imm-Influenza (#1) 2024 Alcohol and Drug Screen 10/20/2024 Depression Annual Screen 10/20/2024 Hypertension Screening (#1) 12/16/2025 Dental BW 12/18/2025 12/16/2024, 03/20, 02/04/2023, Additional history exists Dental Examination 12/18/2025 12/16/2024, 0 04/01/2024, 02/04/2023, Additional history exists Dental Perio Charting 12/18/2025 12/16/2024 , 02/04/2023, 03/26/2022 Dental Prophy 12/18/2025 12/16/2024, 0603/2024, 02/04/2023, Additional history exists Procedures Procedure Name Priority Date/Time Associated Diagnosis Comments PERIODIC ORAL EVALUATION ESTABLISHED PATIENT Routine 12/16/2024 1:00 PM EST Caries of enamel (incipient) Caries DENTAL CASE MANAGEMENT - MOTIVATIONAL INTV Routine 12/16/2024 1:00 PM EST Caries of enamel (incipient) Caries PROPHYLAXIS - ADULT Routine 12/16/2024 1 :00 PM EST Caries of enamel (incipient) Caries COMP PERIODONTAL EVALUATION - NEW/EST PATIENT Routine 12/16/2024 1:00 PM EST Caries of enamel (incipient) Caries BITEWINGS - FOUR RADIOGRAPHIC IMAGES Routine 12/16/2024 1:00 PM EST Caries of enamel (incipient) Caries CARIES RISK ASSESSMENT & DOC FINDING HIGH RISK Routine 12/16/2024 1:00 PM EST Caries of enamel (incipient) Caries NUTRITIONAL COUNSELING CONTROL OF DENTAL DISEASE Routine 12/16/2024 1:00 PM EST Caries of enamel (incipient) Caries ORAL HYGIENE INSTRUCTIONS Routine 12/16/2024 1:00 PM EST Caries of enamel (incipient) Caries ORAL CANCER SCREENING Routine 12/16/2024 1:00 PM EST Caries of enamel (incipient) Caries CASE PRESENTATION SUBS DTL & EXTENSIVE TX PLN Routine 12/16/2024 1:00 PM EST Caries of enamel (incipient) Caries from Last 3 Months [facility]
--- OUTSIDE RECORDS SUMMARY | 2025-01-24 12:55 | XMS_ITS | Encounter Summary ---
Author Organization [facility] Address [address] [place] [address] Care Team Providers Care Dealer Support Technician Name Role Phone Unavailable Primary Care Provider Unavailabl e Encounter Details Date Type Department Care Team (Late st Contact Info) Description 03/28/2022 Dental Interim Note [facility] [address] [place] [address] Anneliese Moreno, DDS [address] [place] [address] Social History Tobacco Use Types Packs/Day Years [...] Description 02/08/2025 1:00 PM EDT Office Visit [facility] [address] [place] [phone] Monica Cummings DDS [address] [place] [address] 06/16/2025 1:40 PM EDT Office Visit [facility] [address] [place] [phone] Jeaneth Chavez [address] [place] [address] documented as of this encounter Visit Diagnoses Not on filedocumented in this encounter
--- OUTSIDE RECORDS SUMMARY | 2025-01-24 12:55 | XMS_ITS ---
Author Organization [facility] Address [address] [place] [address] Care Team Providers Care Leather Stitcher Name Role Phone Zuri Feldman MD Primary Care Provider Tone Jain Jr REASON FOR VISIT Pathology Encounters Encounter Location Date Provider Diagnosis [facility] [address] [facility] [address] [place] [phone] 01/04/2025 Tone Weir Jr Plan Of Treatment No Information Progress Notes * TRACIE HOWE CDOB:[birth year] (64 yo M)Acc No.[id number]:01/04/2025 Patient:?TRACIE HOWE :1960???Age:64 Y???Sex:Male Address:[address] [place] [address] [address] , [place], [address] * true * Date:? Generated for Printi vipul/Rhett/eTransmitting on:?01/24/2025 12:54 PM EDT
[2025-01-24 13:56] LABS: PSA,Total (Free>4and<10) 2.44 ng/mL (0.00-4.00)
== END 2025-01-24 10:51 | disposition home or self-care (01) ==
LOC: HO.HMGCLDS 10:50
PROVIDERS: PCP Internal Medicine; Visit Provider Urology
DX: R97.20 Elevated prostate specific antigen [PSA] (principal); Z12.5 Encounter for screening for malignant neoplasm of prostate
CPT/HCPCS: 36415; 84153

== ENCOUNTER 2025-01-25 13:21 | Outpatient (AMB) | payer MEDICARE, SELFPAY ==
[2025-01-25 13:37] VITALS: BP 130/64; PULSE 91; O2SAT 95; BMI 31.9
--- NOTE | 2025-01-25 13:37 | MHC.OFFVIS ---
Vital Signs 01/25/25 13:37 Height 5 ft 8 in Weight 210 lb BMI 31.9 BP 130/64 Blood Pressure Location Lt brachial Position Sitting Pulse 91 Pulse Source Pulse Oximeter Pulse Oximetry (%) 95 Oxygen Delivery Method Room Air Intake Visit Reasons: COPD [employer] Liaison Officer Required: No Allergies divalproex sodium [Depakote] Allergy (Unknown, Verified 01/25/25 13:41) Unknown rosuvastatin Allergy (Unknown, Verified 01/25/25 13:41) SOB finasteride Allergy (Intermediate, Uncoded 01/25/25 13:41) Hives HPI HPI COPD: Details: 64 years old gentleman is here for short-term follow-up. Complains of ongoing irritation in the throat, he recently had surgery, on the left side of the neck, ( carotid artery end-arterectomy ) Breathing is relatively stable at this time, he has had no acute exacerbation. He is mostly in the wheelchair, or walks with the walker. Still smoking about 5-6 cigarettes a day. Also complains of frequent awakening at night with gasping like feeling. Feels tired and sleepy during the daytime. He likes to be checked for sleep apnea. [facility] Medical History (Updated 01/25/25 @ 17:00 by Rey Oneil MD) Somnolence, daytime SOB (shortness of breath) Atelectasis of left lung Anxiety Smoker Pharyngitis COPD (chronic obstructive pulmonary disease) Osteoarthritis of right hip Arthritis Abdominal hernia Numbness Habitual snoring COPD (chronic obstructive pulmonary disease) Tinea cruris Pes anserinus bursitis of left knee Upper respiratory tract infection Rib fractures Annual physical exam Contusion of chest Back strain Osteoarthritis of right hip Right hip pain Right middle lobe pulmonary infiltrate Sinus congestion Overweight (BMI 25.0-29.9) Urgency of micturition Carpal tunnel syndrome Femoral fracture Pulmonary nodule BPH (benign prostatic hyperplasia) Seizure disorder Insomnia Vitamin D deficiency Impaired glucose tolerance Hypercholesterolemia GERD (gastroesophageal reflux disease) Polysubstance abuse Left subclavian artery occlusion Brain aneurysm CVA (cerebral vascular accident) Vocal cord polyp Vitamin B12 deficiency Surgical History History of nasal surgery H/O colonoscopy Stenosis of subclavian bypass History of surgery History of orthopedic surgery History of knee replacement procedure of right knee Family History Father CAD (coronary artery disease) Kidney malignancy Mother Myocardial infarction Brother Prostate cancer Social History (Updated 01/25/25 @ 13:45 by DARREN Pierce) Household Members: Other Household Members Other:: roomate Housing: Other Housing Other:: trailer Are you a primary memory care program director to a significant other at home: No Do you presently have visiting nurse or other home services: No 75 years or older and lives alone: No Alcohol intake: current Alcohol intake frequency: 3 or more drinks per day Alcohol type: beer Comment: 4 drinks last night Patient Tobacco Use Status: Current everyday Tobacco user Tobacco use type: Cigarette Cigarette Packs Per Day: 5 Cigarettes Per Day: 0.5 e-Cigarette/Vaping Use: Never Used Second Hand Smoke Exposure: Yes Substance Use Type: Marijuana service: No Current occupational status: unemployed Cognitive needs: No Hearing needs: No Vision needs: Yes Review of Systems Const All systems reviewed & are unremarkable except as noted in HPI and below Eyes Reports no additional complaints ENT Reports no additional complaints Card Denies chest pain, Denies irregular heart rhythm and Denies leg edema Resp Reports as per HPI GI Reports constipation and Reports heartburn Reports no additional complaints Musc Reports arthralgias (HIPS) Skin/Breast Reports system reviewed and no additional complaints, except as documented Neuro Reports no additional complaints Psych Reports no additional complaints Endo Reports no additional complaints Asrkis/Lymph Reports no additional complaints Physical Exam Vital Signs: Last Vital Signs Pulse 91 01/25/25 13:37 BP 130/64 01/25/25 13:37 Pulse Ox 95 01/25/25 13:37 Oxygen Delivery Method Room Air 01/25/25 13:37 BMI result Body Mass Index 31.9 Const General: comfortable, no acute distress, alert and awake Orientation/consciousness: patient oriented x3 HEENT Head: Yes normal to inspection General nose exam: No nasal polyps present and No nasal discharge present Face and sinus: Yes sinuses nontender Mouth: oropharynx normal (ON THIS VISIT I DO NOT SEE ANY ERYTHEMA OR SWELLING OR ULCERS IN HIS MOUTH.) Throat: Yes posterior oropharynx normal Eyes General: appearance normal, both eyes and all related structures Neck Other: SCAR ON THE LEFT SIDE FROM PREVIOUS CAROTID ENDARTERECTOMIES RECENT REVISION OF THE SURGERY. Neck: Yes normal visual inspection, Yes no lymphadenopathy, Yes trachea midline and Yes no JVD Thyroid: Thyroid normal Chest Chest palpation & inspection: normal inspection of the chest (HIS SURGICAL SCAR IN THE LEFT PECTORAL AREA FROM RECENT VASCULAR SURGERY), normal palpation of entire chest wall and no tenderness Resp Other: PERCUSSION NOTE IS RESONANT, BREATH SOUNDS ARE DISTANT AND ESPECIALLY DECREASED OVER THE BASILAR AREAS NO CREPITATIONS OR WHEEZES ARE HEARD TODAY . Cardio Palpation: normal PMI Rate: regular rate Rhythm: regular rhythm Heart sounds: no gallops and no murmurs GI Palpation (GI): Soft to palpation, nontender, No hepatosplenomegaly present and no masses Auscultation: normal bowel sounds Back/Spine/Pelvis Thoracic/Lumbar Spine: thoracic and lumbar spine normal to inspection Skin General skin exam: no rashes or lesions noted Neuro General: patient oriented x3 and no focal motor deficits Cranial nerves: Yes CN's II-XII intact bilaterally Extrem General: Yes normal to inspection, Yes no clubbing, cyanosis or edema and Yes no calf tenderness Psych Appearance: grossly normal and well kempt Speech and movement: Normal speech and movement present Assessment & Plan Assessment & Plan (1) COPD (chronic obstructive pulmonary disease): Comment: PATIENT HAS MODERATE DEGREE OF CHRONIC OBSTRUCTIVE PULMONARY DISEASE. Explained that his chronic cough and shortness of breath on exertion is secondary to COPD. Code(s): J44.9 - Chronic obstructive pulmonary disease, unspecified Category: Medical Qualifiers: COPD type: emphysema Emphysema type: unspecified Qualified Code(s): J43.9 - Emphysema, unspecified Plan: Advised to continue using ipratropium-albuterol solution in the nebulizer Q 6 hours while awake And also use Incruse Ellipta 1 inhalation daily. He is prone to have oral thrush so we will not keep him on inhaled steroids. He has to quit smoking completely otherwise the breathing issues will not be fully controlled . (2) Obesity (BMI 30.0-34.9): Comment: Current BMI 31.9, he has put on a few more lbs Code(s): E66.9 - Obesity, unspecified Category: Medical Plan: Is difficult for him to lose weight as he can not do exercise, he is trying to control his. Diet as much as possible (3) Pharyngitis: Comment: HE HAS CHRONIC LOW-GRADE DIFFUSE PHARYNGITIS. AT PRESENT DOES NOT HAVE ANY EXUDATES, THERE IS ONLY MILD CHRONIC ERYTHEMA OF THE SOFT PALATE AND UVULA. THIS MAY BE DUE TO CHRONIC IRRITATION. FROM SMOKING Code(s): J02.9 - Acute pharyngitis, unspecified Category: Medical Plan: ADVISED TO RINSE THE MOUTH WITH SALINE SOLUTION AT LEAST TWICE A DAY. (4) Somnolence, daytime: Comment: COMPLAINS OF FREQUENT AWAKENING DURING THE NIGHT WITH GASPING LIKE FEELING. ALSO COMPLAINS OF BEING TIRED AND SLEEPY DURING THE DAYTIME SYMPTOMS ARE SUGGESTIVE OF OBSTRUCTIVE SLEEP APNEA. Code(s): R40.0 - Somnolence Category: Medical Plan: I HAVE ORDERED A HOME-BASED SLEEP STUDY TO CHECK FOR AT Coding Level of Care Code Est Pt Level 3 (12770) Diagnoses Pulmonary emphysema, unspecified emphysema type J43.9 COPD type: emphysema Emphysema type: unspecified Obesity (BMI 30.0-34.9) E66.9 Pharyngitis J02.9 Somnolence, daytime R40.0
--- OUTSIDE RECORDS SUMMARY | 2025-01-25 16:16 | XMS_ITS ---
Author Organization [facility] Address [address] [place] [address] Care Team Providers Care Breading Machine Tender Name Role Phone Zuri Feldman MD Primary Care Provider Tone Jain Jr [phone] REASON FOR VISIT screening Encounters Encounter Location Date Provider Diagnosis [facility] Outpatient [address] [place] [address] [phone] 12/31/2024 Tone Weir Jr Colon cancer screening [...] TRACIE HOWE CDOB:[birth year] (64 yo M)Acc No.[id number]:12/31/2024 COLON WITH MAC Patient:?TRACIE HOWE Provider:?Tone Weir MD :1960???Age:64 Y???Sex:Male Sandro e:12/31/2024 Address:[address] [place] [address] [address] [facility] Pcp:Zuri Feldman MD Subjective: * Chief Complaints: * ???1. Screening. * Medical History:? Objective: * Vitals:? Assessment: * Assessment: 1.?Colon cancer screening - Z12.11 (Primary)???2.?Personal history of adenomatous and serrated colon polyps - Z86.0101???3.?Colon polyps - K63.5??? Plan: * Treatment: * Procedure Codes:?93743 LESIO N REMOVAL COLONOSCOPY, 95200 COLONOSCOPY AND BIOPSY, Modifiers: 57 , 0529F INTRVL 3+YRS PTS CLNSCP DOCD * * The named appointment provid er may or may not be the originator of this progress note, and it is not deemed complete until electronically signed by the appointment provider. Sign off status: Pending * Provider:?Tone Weir MD Date:?0 12/31/2024 Generated for Bryan matthew/Rhett/Mireyaitting on:?01/25/2025 04:16 PM EDT
--- OUTSIDE RECORDS SUMMARY | 2025-01-25 16:16 | XMS_ITS | Encounter Summary ---
Author Organization [facility] Address [address] [place] [address] Care Team Providers Care Gang Supervisor Pipe Lines Name Role Phone Unavailable Primary Care Provider Unavailabl e Encounter Details Date Type Department Care Team (Late st Contact Info) Description 03/28/2022 Dental Interim Note [facility] [address] [place] [address] Anneliese Moreno, DDS [address] [place] [address] Social History Tobacco Use Types Packs/Day Years [...] Description 02/08/2025 1:00 PM EDT Office Visit [facility] [address] [place] [address] Monica Cummings DDS [address] [place] [address] 06/16/2025 1:40 PM EDT Office Visit [facility] [address] [place] [address] Jeaneth Chavez [address] [place] [address] documented as of this encounter Visit Diagnoses Not on filedocumented in this encounter
--- OUTSIDE RECORDS SUMMARY | 2025-01-25 16:16 | XMS_ITS | Clinical Summary ---
Author Organization [facility] Address [address] [place] [address] Care Team Providers Care Accordion Repairer Name Role Phone Unavailable Primary Care Provider [...] - HSN FULL (MEDICAID) [place] [id number]
--- OUTSIDE RECORDS SUMMARY | 2025-01-25 16:16 | XMS_ITS | Clinical Summary ---
Author Organization [facility] Address [address] [place] [address] Care Team Providers Care Batch Room Technician Name Role Phone Unavailable Primary Care [...] daily apply a thin ribbon on toothbrush. [place] thoroughly once daily for two minutes, preferably [...] Problem Noted Date Diagnosed Date Intracranial aneurysm ([facility]) 05/03/2024 Seizure ([facility]) 05/03/2024 Bursitis of left knee 06/20/2022 Chronic pain 03/26/2022 Encounters Date Type Department Care Team Description 12/16/2024 1:00 PM EST Office Visit [facility] [address] [place] [address] Jeaneth Chavez Caries of enamel [...] Description 02/08/2025 1:00 PM EDT Office Visit [facility] [address] [place] [address] Monica Cummings, DDS [address] [place] [address] 06/16/2025 1:40 PM EDT Office Visit [facility] [address] [place], [place] [phone] Jeaneth Chavez [address] [place] [address] Health Maintenance Due Date Last Done Comments [...] Aortic Aneurysm Screening 2023 Falls Prevention 2023 [id number]-54 ( season) 2024 Imm-Influenza (#1) 2024 Alcohol [...] enamel (incipient) Caries from Last 3 Months [facility]
--- OUTSIDE RECORDS SUMMARY | 2025-01-25 16:16 | XMS_ITS ---
Author Organization [facility] Address [address] [place] [address] Care Team Providers Care Floorman Name Role Phone Zuri Feldman MD Primary Care Provider Tone Jain Jr REASON FOR VISIT Pathology Encounters Encounter Location Date Provider Diagnosis [facility] [address] [facility] [address] [place] [phone] 01/04/2025 Tone Weir Jr Plan Of Treatment No Information Progress Notes * TRACIE HOWE CDOB:[birth year] (64 yo M)Acc No.[id number]:01/04/2025 Patient:?TRACIE HOWE :1960???Age:64 Y???Sex:Male Address:[address] [place] [address] [address] , [place], [address] * true * Date:? Generated for Printi vipul/Rhett/eTransmitting on:?01/25/2025 04:16 PM EDT
--- OUTSIDE RECORDS SUMMARY | 2025-01-25 16:16 | XMS_ITS | Patient Health Record ---
Author Organization [facility] Address [address] [place] [address] Care Team Providers Care Furniture Mover Helper Name Role Phone Zuri Feldman MD Primary Care Provider Tone Jain Jr Unavailable Allergies Allergen (clinical drug ingredient) Drug/Non Drug Allergy documented on EMR Reaction Allergy Type Onset Date Status NyQuil Unknown Drug Allergy Active morphine Morphine Sulfate Unknown Drug Allergy Active DayQuil Multi-Symptom Unknown Drug Allergy Active Zypack (uncoded) Unknown Allergy Act elena Results Component Value Reference Range Notes Pathology Reviewed date:01/04/2025 01:31:17 PM Interpretation: Performing Lab:[facility], [address] [place] [phone] Notes/Report: Name: Stas Howe Age/Sex: 64/M : 1960 Unit#: [id number] Attend Dr: Tone Weir MD Re12/31/24 Status : [facility] Dis[facility]: SPEC : [id number] RECD : 12/31/24 STATUS: MEGAN ADAMS NUM: [id number] AGUSTIN: 12/31/24-1254 [facility] DR: Tone Weir MD ENTERED: 12/31/24 54 [...] in cassette A. B. Received in forma [employer] labeled ?right colon polyp? are 4 fragments [...] copic examination, 1 piece in cassette C. ([facility]) CONTINUED ON NEXT PAGE Name: Stas Howe Age/Sex: 64/M : 1960 Unit#: [id number] Attend Dr: Tone Weir MD Re12/31/24 Status : [facility] Dis[facility]: SPEC : [id number] RECD : 12/31/24-1340 STATUS: MEGAN ADAMS NUM: [id number] AGUSTIN: 12/31/24-[address]: Tone Weir MD ENTERED: 12/31/24 54 SP TYPE: Surgical OTHR DR: Zuri Feldman MD ORDERED: BERT Stain/9, Mejia Crane L4/3 Copies To: Tone Weir MD [facility] [address] [place], [place] [id number] Zuri Feldman MD [facility] Primary Care,[place] [address] [place] [address] Signed (si gnature on file) Mariola Gamez [...] Oral ly Once a day Active Nystatin 533356 UNIT/ML Mouth/Throat for 10 Active ALPRAZolam 0.25 [...] Problem Status W/U Status Risk Notes Problem 201628113 Colon cancer screening (Z12.11) Active confirmed Problem 800235602 nursing home (curre nt) use of anticoagulants (Z79.01) Active confirmed Problem 01406301 Encounter for ot her preprocedural examination (Z01.818) Active confirmed Problem 631197788 nursing home (curre nt) use of aspirin (Z79.82) Active confirmed Problem 357485624 Personal history of colonic polyps (Z86.0100) Active confirmed Vital Signs Temperature 96.9 degrees Fahrenheit 11/22/2024 Blood pressure diastolic 00 mm Hg 11/22/2024 Height 68 in 11/22/2024 Blood pressure systolic 000 mm Hg 11/22/2024 Weight 200 lbs 11/22/2024 BMI 30.41 kg/m2 11/22/2024 Encounters Encounter Location Date Provider Diagnosis [facility] Outpatient [address] [place] [phone] 12/31/2024 Tone Weir Jr Colon cancer screening Z12.11 ; Personal history of adenomatous and serrated colon polyps Z86.0101 and Colon polyps K63.5 [facility] [address] [place] [phone] 11/22/2024 Tone Weir Jr Colon cancer screening Z12.11 ; salvage determiner (current) use of anticoagulants Z79.01 and Personal history of colonic polyps Z86.0100 [facility] [address] [place] [phone] 12/22/2024 Tone Weir Jr [facility] [address] [place] [phone] 01/04/2025 Tone Weir Jr Assessments Encounter Date [...] Eliquis 3 days before the procedure. 11/22/2024 nursing home (current) use of anticoagulants (ICD-10 - Z79.01) [...] Start Date Coverage End Date [facility] [address] [place] [id number] STAS HOWE Self - patient is the insured MEDICAID OF [facility] [address] [place] [address] [id number] STAS HOWE Self - patient is the insured Medical (General) History Medical History History ICD Code Hyperlipidemia Lung nodule COPD CVA, history of brain aneurysm Left subclavian artery occlusion BPH Colonoscopy 04/06, tubular adenomas x2, f elena-year followup Surgical History Surgery Date(Month/Year) Right knee replacement Right femur fracture repair
--- OUTSIDE RECORDS SUMMARY | 2025-01-25 16:16 | XMS_ITS ---
Author Organization [facility] Address [address] [place] [phone] Care Team Providers Care Civil Preparedness Training Officer Name Role Phone Zuri Feldman MD Primary Care Provider Tone Jain Jr REASON FOR VISIT faxed clearance note on external fax Encounters Encounter Location Date Provider Diagnosis [facility] [address] [place] [phone] 12/22/2024 Tone Weir Jr Plan Of Treatment No Information Progress Notes * TRACIE HOWE CDOB:[birth year] (64 yo M)Acc No.[id number]:12/22/2024 Patient:?TRACIE HOWE :1960???Age:64 Y???Sex:Male Address:[address] [place] [address] [address] [facility] [address] , [place], [address] * true * Date:? Generated for Printi ng/Jeang/eTransmitting on:?01/25/2025 04:16 PM EDT
== END 2025-01-25 14:16 | disposition home or self-care (01) ==
LOC: HO.HPS 13:22
PROVIDERS: PCP Internal Medicine; Visit Provider Internal Medicine
DX: J43.9 Emphysema, unspecified (principal); E66.9 Obesity, unspecified; J02.9 Acute pharyngitis, unspecified; R40.0 Somnolence
CPT/HCPCS: 99213

== ENCOUNTER → 2025-01-25 13:21 | Outpatient (BNVA) | payer MEDICARE, SELFPAY | PROVIDERS: PCP Internal Medicine; Visit Provider Internal Medicine | DX: J43.9 Emphysema, unspecified (principal); J02.9 Acute pharyngitis, unspecified; E66.9 Obesity, unspecified; R40.0 Somnolence; Z68.31 Body mass index [BMI] 31.0-31.9, adult | CPT/HCPCS: 99212 ==

== ENCOUNTER 2025-01-27 11:28 | Emergency (ER) | payer MEDICARE, SELFPAY ==
--- NOTE | ~2025-01-27 | CT_ITS ---
EXAMINATION: CT ANGIOGRAM CHEST CLINICAL INFORMATION: Left-sided pleuritic/chest pain. Shortness of breath. COMPARISON: Noncontrast CT chest dated November 30, 2019. TECHNIQUE: Multiple axial images were obtained through the chest after the administration of 65 mL of Omnipaque 350 intravenous contrast. Extensive vascular post-processing including two-dimensional and three-dimensional reformatted images were created and reviewed on an independent workstation. SmartPrep technique. This CT examination was performed using dose optimization techniques as appropriate, variously including the following: *Automated exposure control *Adjustment of mA and/or kV according to patient size (this includes techniques or standardized protocols for targeted exams where dose is matched to indication/reason for exam; i.e. extremities or head) *Use of iterative reconstruction technique. DLP: 333 mGy centimeter. FINDINGS: Normal patency without intraluminal filling defects in the main pulmonary artery and its main branches and subsegmental pulmonary branches. Mixed plaques throughout the thoracic aorta wall and its main branches without gross aneurysm or dissection. No lymphadenopathy, mediastinum. Posttreatment changes in the right lung with the centrilobular and paraseptal emphysematous changes and large bulla right upper hemithorax. There is a confluent attenuation with air bronchograms in the left lower lung lobe. Elevated left hemidiaphragm. No gross pneumothorax. Large volume hiatal hernia. Calcified plaques in the coronary arteries. Calcified plaques in the aortic valve and mitral valve. No pericardial effusion. No acute rib fracture. Multilevel mild thoracic and upper lumbar spondylosis. No acute fracture or listhesis. Osteopenia versus osteoporosis. There is a superior endplate compression deformity representing 20% volume loss at T6, similar since prior exam. Motion artifact versus questionable duplicated collecting system the right kidney. Punctate calcification left hepatic lobe likely granuloma. CT/CT angio chest PE protocol IMPRESSION: No acute pulmonary artery emboli. No aneurysm or dissection thoracic aorta. Acute airspace disease, left lower lung lobe. Moderate to large volume hiatal hernia, larger since prior exam. Coronary artery disease and atherosclerosis disease. No acute rib fracture. Old superior endplate compression deformity at T6.. Fleischner guidelines were followed. Electronically signed by: Ritchie Choi MD 01/27/2025 12:54 PM EDT
--- NOTE | ~2025-01-27 | XR_ITS ---
EXAMINATION: XR CHEST CLINICAL INFORMATION: SOB COMPARISON: 08/06/2024, 08/19/2023. TECHNIQUE: Frontal view of the chest was obtained. FINDINGS: The cardiac, hilar, and mediastinal contours are normal. Aortic mural calcifications. Elevated left hemidiaphragm, unchanged. Emphysema with bullous changes in the right upper lung. Chronic scarring right midlung, and medial right base. Chronic linear type atelectasis left base. Surgical clips in the left inferior neck and left chest wall. Bilateral neck carotid calcifications. No osseous abnormalities. XR/XR chest 1V IMPRESSION: No active pulmonary disease. Stable chronic changes as described. Electronically signed by: Luis Huang MD 01/27/2025 12:27 PM EDT
[2025-01-27 11:30] VITALS: BP 136/83; PULSE 104; RESP 20; TEMP 36.7; O2SAT 95; BMI 31.0
--- NOTE | 2025-01-27 11:32 | ECG_ITS ---
Test Reason : cp Blood Pressure : */* mmHG Vent. Rate : 101 BPM Atrial Rate : 101 BPM P-R Int : 158 ms QRS Dur : 74 ms QT Int : 338 ms P-R-T Axes : 63 -1 28 degrees QTcB Int : 438 ms Sinus tachycardia Otherwise normal ECG When compared with ECG of 22-Oct-2023 10:47, No significant change was found Referred By: Generic ED Physician Electronically Signed By: Vince Chaidez
--- NOTE | 2025-01-27 11:33 | ED.SOB ---
HPI - SOB/Dyspnea General Chief Complaint: Dyspnea Stated Complaint: CP, diff breathing Time Seen by Provider: 01/27/25 12:04 Source: patient Mode of arrival: ambulatory Limitations: no limitations History of Present Illness HPI Narrative: this is a 64-year-old man with a past medical history of COPD, arthritis, BPH, hypercholesterolemia, anxiety, GERD, CVA who presents for evaluation of dyspnea. Patient states he has had a dry cough for the last couple of days. He states gradually worsening dyspnea. He states waking up with chest pain this morning. He states no fevers. He states no GI or symptoms. He states no trauma. He states no syncope. Related Data Home Medications ?Medication ?Instructions ?Recorded ?Confirmed miconazole nitrate 2 % topical 1 appl topical BID PRN Rash 11/11/23 01/11/25 powder (Zeasorb AF) apixaban 2.5 mg tablet (Eliquis) 2.5 mg PO BID 09/02/24 01/11/25 Previous Rx's ?Medication ?Instructions ?Recorded shower chair #1 ea 04/25/21 albuterol sulfate 2.5 mg/3 mL 2.5 mg (3 mL) inhalation QID PRN 11/12/22 (0.083 %) solution for nebulization shortness of breath or wheezing 30 days #180 mL WALKER #1 ea 02/14/23 acetaminophen 325 mg tablet 650 mg (2 x 325 mg) PO Q6H PRN 12/03/23 Pain, Mild (Pain Scale 1-3) 30 days #240 tabs fluticasone propionate 50 2 spray intranasal DAILY #3 ea 05/12/24 mcg/actuation nasal spray,suspension atorvastatin 80 mg tablet 80 mg PO BEDTIME #90 tabs 09/03/24 umeclidinium 62.5 mcg/actuation 1 inh inhalation DAILY severe copd 10/28/24 blister powder for inhalation 30 days #30 ea (Incruse Ellipta) gabapentin 300 mg capsule 600 mg (2 x 300 mg) PO TID 90 days 12/08/24 #540 caps aspirin 81 mg tablet,delayed 81 mg PO DAILY #90 tabs 12/24/24 release alprazolam 0.25 mg tablet 0.25 mg PO BEDTIME PRN anxiety #20 01/11/25 tabs bupropion HCl 150 mg tablet,12 hr 150 mg PO BID #180 tabs 01/11/25 sustained-release (Wellbutrin SR) tramadol 50 mg tablet 50 mg PO BID PRN pain 30 days #30 01/11/25 tabs albuterol sulfate 90 mcg/actuation 2 puff PO Q6H PRN bronchospasm 01/12/25 aerosol inhaler #8.5 grams ipratropium 0.5 mg-albuterol 3 mg 3 ml inhalation Q4H PRN wheezing 01/18/25 (2.5 mg base)/3 mL nebulization 30 days #90 mL soln cyanocobalamin (vitamin B-12) 1,000 mcg PO DAILY #90 caps 01/19/25 1,000 mcg capsule omeprazole 20 mg capsule,delayed 20 mg PO BID@0630,1630 #180 caps 01/19/25 release tamsulosin 0.4 mg capsule 0.4 mg PO DAILY #90 caps 01/19/25 dutasteride 0.5 mg capsule 0.5 mg PO DAILY #30 caps 01/24/25 albuterol sulfate 90 mcg/actuation 4 puff inhalation Q4H PRN 01/27/25 aerosol inhaler shortness of breath or wheezing #8.5 grams azithromycin 250 mg tablet 250 mg PO DAILY 4 days #4 tabs 01/27/25 prednisone 50 mg tablet 50 mg PO DAILY 5 days #5 tabs 01/27/25 Allergies Allergy/AdvReac Type Severity Reaction Status Date / Time divalproex sodium [Depakote] Allergy Unknown Unknown Verified 01/27/25 11:31 rosuvastatin Allergy Unknown SOB Verified 01/27/25 11:31 finasteride Allergy Intermediate Hives Uncoded 01/25/25 13:41 Review of Systems Review of Systems: ROS as per HPI [facility] Past Medical History Medical History (Updated 01/27/25 @ 13:03 by Kwame Patel MD) Somnolence, daytime SOB (shortness of breath) Atelectasis of left lung Anxiety Smoker Pharyngitis COPD (chronic obstructive pulmonary disease) Osteoarthritis of right hip Arthritis Abdominal hernia Numbness Habitual snoring COPD (chronic obstructive pulmonary disease) Tinea cruris Pes anserinus bursitis of left knee Upper respiratory tract infection Rib fractures Annual physical exam Contusion of chest Back strain Osteoarthritis of right hip Right hip pain Right middle lobe pulmonary infiltrate Sinus congestion Overweight (BMI 25.0-29.9) Urgency of micturition Carpal tunnel syndrome Femoral fracture Pulmonary nodule BPH (benign prostatic hyperplasia) Seizure disorder Insomnia Vitamin D deficiency Impaired glucose tolerance Hypercholesterolemia GERD (gastroesophageal reflux disease) Polysubstance abuse Left subclavian artery occlusion Brain aneurysm CVA (cerebral vascular accident) Vocal cord polyp Vitamin B12 deficiency Surgical History History of nasal surgery H/O colonoscopy Stenosis of subclavian bypass History of surgery History of orthopedic surgery History of knee replacement procedure of right knee Family History Family History Father CAD (coronary artery disease) Kidney malignancy Mother Myocardial infarction Brother Prostate cancer Social History Social History (Updated 01/25/25 @ 13:45 by Mariola Sena Lina) Household Members: Other Household Members Other:: roomate Housing: Other Housing Other:: trailer Are you a primary eye care professional to a significant other at home: No Do you presently have visiting nurse or other home services: No Unable to assess alcohol history related to: Unknown Alcohol intake: current Alcohol intake frequency: 3 or more drinks per day Alcohol type: beer Comment: 4 drinks last night Patient Tobacco Use Status: Current everyday Tobacco user Tobacco use type: Cigarette Cigarette Packs Per Day: 5 Cigarettes Per Day: 0.5 Smoked in Last 30 Days: Yes e-Cigarette/Vaping Use: Never Used Second Hand Smoke Exposure: Yes Use of substances other than those prescribed or required for medical reasons: Unknown Substance Use Type: Marijuana Advance Directives: Yes Advance Directives Information Provided: Yes Advance Directives on File: No service: No Current occupational status: unemployed Cognitive needs: No Hearing needs: No Vision needs: Yes Physical Exam Vital Signs: Vital Signs: Last Vital Signs Temp 98.6 F 01/27/25 14:06 Pulse 96 01/27/25 14:06 Resp 17 01/27/25 14:06 BP 149/87 H 01/27/25 14:06 Pulse Ox 94 01/27/25 14:06 O2 Del Method Room Air 01/27/25 14:06 BMI result Body Mass Index 31.0 Gen: NAD, AOx3 HEENT: NCAT, EOMI, normal conjunctiva CV: RRR Pulm: faint scattered expiratory wheezes, no respiratory distress GI: Soft, NTND, no rebound, guarding or rigidity Neuro: Grossly non focal Medications Administered Discontinued Medications Generic Name Dose Route Start Last Admin Trade Name Gwendolyn PRN Reason Stop Dose Admin Albuterol Sulfate 5 mg/ 0 mg 01/27/25 11:52 01/27/25 11:54 Albuterol/Ipratropium 3 ml INHALE 01/27/25 11:53 1 each ONCE ONE Administration Sodium Chloride 500 mls @ 999 mls/hr 01/27/25 12:30 01/27/25 13:16 Ns IV 01/27/25 13:00 Infused .Q31M ODILIA Infusion Iohexol 100 ml 01/27/25 12:39 01/27/25 12:40 Iohexol 350 Mg/Ml 100 Ml Infus..Btl IV 01/27/25 12:40 65 ml ONCE ONE Administration Methylprednisolone Sodium Succinate 125 mg 01/27/25 12:25 01/27/25 12:43 Methylprednisolone Sod Succ 125 Mg/2 Ml Vial IVPUSH 01/27/25 12:26 125 mg ONCE ONE Administration Medical Decision Making Medical Decision Making [facility] Narrative: Differential diagnosis includes, but is not limited to COPD exacerbation, pleuritis, pneumonia, viral URI, ACS, pneumothorax, pulmonary embolism. Patient is afebrile and hemodynamically stable on room air. Patient does not trigger sepsis so this is not suspected. Exam is benign and reassuring. Patient is treated supportively with IV fluids, nebulized bronchodilators and methylprednisolone. He is provided Azithromycin for COPD exacerbation. Patient spaces well in between nebulized bronchodilators. He ambulates independently with no development of hypoxia on room air. He states he has nebulized albuterol and albuterol MDI, but requests refill of his albuterol MDI. On re-examination, patient is well-appearing and in no acute distress. There is no indication for further emergent evaluation in this otherwise well-appearing patient as above. Patient is provided written and verbal instructions, educational materials, recommendations for outpatient follow-up, prescription for prednisone, azithromycin and albuterol MDI, prescription for prednisone, strict return precautions and teach back is performed. Patient states understanding and agreement with plan of care. Patient is discharged home in stable and improved condition. Admission/Observation Consideration of admission/observation: Escalation of care including admission/observation considered Lab Data [facility] Lab Attestation statement: I reviewed the patient's lab results. CBC is unremarkable with no cell line derangements, coagulation studies noncontributory, metabolic panel unremarkable, magnesium within normal limits, troponin undetectable x2, he tests negative for COVID-19, Influenza and RSV 01/27/25 11:52 01/27/25 11:52 Labs: Lab Results 01/27/25 01/27/25 Range/Units 11:52 14:10 WBC 10.1 (4.8-10.8) X10*3/uL RBC 4.46 L (4.60-5.80) X10*6/uL Hgb 14.6 (14.0-18.0) g/dl Hct 41.6 L (42.0-52.0) % MCV 93.3 (80.0-98.0) fL MCH 32.7 (27.0-33.0) pg MCHC 35.1 (31.0-36.0) g/dl RDW 16.7 H (11.0-16.0) % Plt Count 191 (160-400) X10*3/uL MPV 9.4 (9.4-12.4) fL Immature Gran % (Auto) 0.5 H (0.0-0.4) % Neut % (Auto) 80.5 H (45-73) % Lymph % (Auto) 10.5 L (20-40) % [place] % (Auto) 7.5 (2-11) % Eos % (Auto) 0.6 (0-4) % Baso % (Auto) 0.4 (0-2) % Lymph # (Auto) 1.1 L (1.2-4.9) X10*3/uL [place] # (Auto) 0.8 (0.1-1.2) X10*3/uL Eos # (Auto) 0.1 (0.0-0.4) X10*3/uL Baso # (Auto) 0.0 (0.0-0.2) X10*3/uL Abs Immat Gran (auto) 0.05 H (0.00-0.03) X10*3/uL Absolute Neuts (auto) 8.1 (2.0-8.3) x10*3/uL Absolute Nucleated RBC 0.000 (0.0-0.012) X10*3/uL Nucleated RBC % (auto) 0.0 (0.0-0.2) /100WBC PT 12.9 H (10.9-12.4) SEC INR 1.1 (0.9-1.1) Sodium 140 (135-145) mmol/L Potassium 4.5 (3.3-5.1) mmol/L Chloride 107 (96-108) mmol/L Carbon Dioxide 25 (22-29) mmol/L Anion Gap 13 (12-20) BUN 8 L (9-16) mg/dL Creatinine 0.72 (0.5-1.4) mg/dL Estim Creat Clear Calc 114.9 Estimated GFR > 60 Random Glucose 123 H (60-115) mg/dL Calcium 8.8 (8.4-10.2) mg/dL Magnesium 1.8 (1.6-2.6) mg/dL Total Bilirubin 0.4 (0.0-1.0) mg/dL AST 17 (5-37) U/L ALT 15 (0-40) U/L Alkaline Phosphatase 106 (39-117) U/L Troponin I High Sens < 2.7 < 2.7 (<3.5-35.0) ng/L Total Protein 6.6 (6.5-8.0) g/dL Albumin 4.1 (3.5-5.0) g/dL Influenza Type A (PCR) NEGATIVE (Negative) Influenza Type B (PCR) NEGATIVE (Negative) RSV RNA Qual (PCR) NEGATIVE (Negative) SARS-CoV-2 RNA (RT-PCR) NEGATIVE (Negative) Independent Interpretation I performed an independent interpretation of an: EKG, Plain X-Ray and CT Scan Interpretation: per my interpretation, EKG demonstrates a sinus tachycardia at 101 beats per minute, WA 158, QRS 74, QTC 438, no STEMI. Per my interpretation, chest x-ray demonstrates no focal consolidation, pleural effusion or pneumothorax. Per my interpretation, CT chest PE demonstrates no central pulmonary embolism Radiology Impression Discussion of test interpretation with radiology: I have reviewed the radiologist's reading. Radiologist Impression: XR/XR chest 1V IMPRESSION: No active pulmonary disease. Stable chronic changes as described. Electronically signed by: Luis Huang MD 01/27/2025 12:27 PM EDT RP Dictated By: Luis Huang MD Signed By: <Electronically signed by Luis Huang MD in OV> 01/27/[address]/CT angio chest PE protocol IMPRESSION: No acute pulmonary artery emboli. No aneurysm or dissection thoracic aorta. Acute airspace disease, left lower lung lobe. Moderate to large volume hiatal hernia, larger since prior exam. Coronary artery disease and atherosclerosis disease. No acute rib fracture. Old superior endplate compression deformity at T6.. Fleischner guidelines were followed. Electronically signed by: Ritchie Choi MD 01/27/2025 12:54 PM EDT RP Dictated By: Ritchie Nielsen MD Signed By: <Electronically signed by Ritchie Sue MD in OV> 01/27/25 1254 Discharge Plan Discharge Clinical Impression: COPD exacerbation Patient Disposition: Home, Self-Care Instructions: COPD (Chronic Obstructive Pulmonary Disease) (ED) Additional Instructions: You were evaluated in the emergency room. Your vital signs were reassuring. Your blood work, EKG, chest x-ray and CAT scan of the chest were very reassuring with no emergent findings Or evidence of pneumonia. You were treated with nebulized albuterol, steroids and antibiotics for a COPD exacerbation. You are given a prescription for new albuterol MDI. Please use as directed. You are given a prescription for prednisone and an antibiotic (azithromycin) for COPD. Please take as directed and until completed. Your next dose of prednisone and azithromycin should be taken tomorrow morning. You should use 4 puffs of albuterol or 1-2 vials of nebulized albuterol every 4 hours for the next 24 hours. If you are beginning to feel improved after 24 hours, you may decrease albuterol use to every 4 hours NEEDED. Follow up with your primary care doctor in the next 3-5 days after your emergency room visit. Return to the emergency room with any new concerns or symptoms or if you are needing to use your albuterol more frequently than every 4 hours. Prescriptions: New albuterol sulfate 90 mcg/actuation HFA aerosol inhaler 4 puff inhalation Q4H PRN (Reason: shortness of breath or wheezing) Qty: 8.5 0RF prednisone 50 mg tablet 50 mg PO DAILY 5 Days Qty: 5 0RF azithromycin 250 mg tablet 250 mg PO DAILY 4 Days Qty: 4 0RF Rx Instructions: start on day 2 of therapy No Action (DME) shower chair See Rx Instructions .Route .MEDSUPPLY Qty: 1 0RF Rx Instructions: As directed albuterol sulfate 2.5 mg /3 mL (0.083 %) solution for nebulization 2.5 mg inhalation QID PRN (Reason: shortness of breath or wheezing) 30 Days Qty: 180 1RF (DME) WALKER See Rx Instructions .Route .MEDSUPPLY Qty: 1 0RF Rx Instructions: As directed fluticasone propionate 50 mcg/actuation spray,suspension 2 spray intranasal DAILY Qty: 3 3RF Rx Instructions: administer into each nostril atorvastatin 80 mg tablet 80 mg PO BEDTIME Qty: 90 2RF gabapentin 300 mg capsule 600 mg PO TID 90 Days Qty: 540 1RF aspirin 81 mg tablet,delayed release (DR/EC) 81 mg PO DAILY Qty: 90 0RF albuterol sulfate 90 mcg/actuation HFA aerosol inhaler 2 puff PO Q6H PRN (Reason: bronchospasm) Qty: 8.5 0RF ipratropium-albuterol 0.5 mg-3 mg(2.5 mg base)/3 mL solution for nebulization 3 ml inhalation Q4H PRN (Reason: wheezing) 30 Days Qty: 90 0RF tamsulosin 0.4 mg capsule 0.4 mg PO DAILY Qty: 90 0RF omeprazole 20 mg capsule,delayed release(DR/EC) 20 mg PO BID@0630,1630 Qty: 180 0RF cyanocobalamin (vitamin B-12) 1,000 mcg capsule 1,000 mcg PO DAILY Qty: 90 0RF dutasteride 0.5 mg capsule 0.5 mg PO DAILY Qty: 30 1RF miconazole nitrate [Zeasorb AF] 2 % powder 1 appl topical BID PRN (Reason: Rash) acetaminophen 325 mg Tablet 650 mg PO Q6H PRN (Reason: Pain, Mild (Pain Scale 1-3)) 30 Days Qty: 240 0RF Eliquis 2.5 mg tablet 2.5 mg PO BID alprazolam 0.25 mg tablet 0.25 mg PO BEDTIME PRN (Reason: anxiety) Qty: 20 0RF bupropion HCl [Wellbutrin SR] 150 mg tablet sustained-release 12 hr 150 mg PO BID Qty: 180 1RF tramadol 50 mg tablet 50 mg PO BID PRN (Reason: pain) 30 Days Qty: 30 0RF Incruse Ellipta 62.5 mcg/actuation blister with device 1 inh inhalation DAILY 30 Days Qty: 30 4RF Print Language: Spanish
[2025-01-27 11:54] VITALS: BP 135/89; PULSE 113; RESP 100; TEMP 36.3; O2SAT 97
[2025-01-27] MEDS: Albuterol Sulfate 5 MG, Albuterol/Iprat 2.5/0.5MG 3 ML 3 ML INHALE (11:54)
[2025-01-27 11:56] VITALS: PULSE 97; RESP 24; O2SAT 93
[2025-01-27 11:57] LABS: MANUAL DIFF FLAG NO
[2025-01-27 12:04] LABS: Basophils Percent Auto 0.4 % (0-2); Eosinophils Absolute Auto 0.1 X10*3/uL (0.0-0.4); Eosinophils Percent Auto 0.6 % (0-4); Hematocrit 41.6 % (42.0-52.0); Hemoglobin 14.6 g/dl (14.0-18.0); INTERNATIONAL NORM RATIO 1.1 (0.9-1.1); Imm Gran Abs Auto 0.05 X10*3/uL (0.00-0.03); Imm Gran Pct Auto 0.5 % (0.0-0.4); Lymphocytes Absolute Auto 1.1 X10*3/uL (1.2-4.9); Lymphocytes Percent Auto 10.5 % (20-40); Mean Corpuscular HGB Conc 35.1 g/dl (31.0-36.0); Mean Corpuscular Hemoglobin 32.7 pg (27.0-33.0); Mean Corpuscular Volume 93.3 fL (80.0-98.0); Mean Platelet Volume 9.4 fL (9.4-12.4); Monocytes Absolute Auto 0.8 X10*3/uL (0.1-1.2); Monocytes Percent Auto 7.5 % (2-11); Neutrophils Absolute Auto 8.1 x10*3/uL (2.0-8.3); Neutrophils Percent Auto 80.5 % (45-73); Platelet Count 191 X10*3/uL (160-400); Prothrombin Time 12.9 SEC (10.9-12.4); Red Blood Count 4.46 X10*6/uL (4.60-5.80); Red Cell Distribution Width 16.7 % (11.0-16.0); White Blood Count 10.1 X10*3/uL (4.8-10.8)
[2025-01-27 12:23] LABS: Troponin-I High Sensitivity < 2.7 ng/L (<3.5-35.0)
[2025-01-27 12:24] LABS: Alanine Aminotransferase 15 U/L (0-40); Albumin Level 4.1 g/dL (3.5-5.0); Alkaline Phosphatase 106 U/L (39-117); Anion Gap 13 (12-20); Aspartate Amino Transferase 17 U/L (5-37); Bilirubin Total 0.4 mg/dL (0.0-1.0); Blood Urea Nitrogen 8 mg/dL (9-16); Calcium 8.8 mg/dL (8.4-10.2); Carbon Dioxide 25 mmol/L (22-29); Chloride 107 mmol/L (96-108); Creatinine Clr Calc Pharmacy 114.9; Estimated Glomerular Filt Rate > 60; Glucose Random 123 mg/dL (60-115); Magnesium 1.8 mg/dL (1.6-2.6); Potassium 4.5 mmol/L (3.3-5.1); Sodium 140 mmol/L (135-145); Total Protein 6.6 g/dL (6.5-8.0)
[2025-01-27] MEDS: iohexoL 350 MG/ML 100 ML INFUS..BTL IV (12:40)
[2025-01-27] MEDS: methylPREDNISolone Sod Succ 125 MG/2 ML VIAL IVPUSH (12:43)
[2025-01-27] MEDS: 0.9 % Sodium Chloride 500 ML 999 ML IV (12:45)
[2025-01-27 12:52] LABS: Influenza A PCR NEGATIVE (Negative); Influenza B PCR NEGATIVE (Negative); Resp Syncy Virus RNA Qual PCR NEGATIVE (Negative); SARS COV2 PCR INHOUSE NEGATIVE (Negative)
[2025-01-27 14:06] VITALS: BP 149/87; PULSE 96; RESP 17; TEMP 37; O2SAT 94
[2025-01-27 14:35] LABS: Troponin-I High Sensitivity < 2.7 ng/L (<3.5-35.0)
--- NOTE | 2025-01-27 14:45 | MHC.EDTECH ---
pt was ambulated for O2 with ambulation trial stating 90%-94% needing to stop for 3 breaks with complaints being SOB. MD and nurse made aware
[2025-01-27] MEDS: Azithromycin 500 MG TABLET PO (15:01)
[2025-01-27 15:21] VITALS: BP 149/87; PULSE 96; RESP 17; TEMP 37; O2SAT 94
== END 2025-01-27 15:21 | disposition home or self-care (01) ==
PROVIDERS: Emergency Provider Emergency Medicine; PCP Internal Medicine
DX: J44.1 Chronic obstructive pulmonary disease with (acute) exacerbation (principal); R05.9 Cough, unspecified; R06.00 Dyspnea, unspecified; R00.0 Tachycardia, unspecified; R06.02 Shortness of breath; Z03.818 Encounter for observation for suspected exposure to other biological agents ruled out; E78.00 Pure hypercholesterolemia, unspecified; F17.210 Nicotine dependence, cigarettes, uncomplicated; Z79.899 Other long term (current) drug therapy
CPT/HCPCS: 0241U; 36415; 71045; 71275; 80053; 83735; 84484; 85025; 85610; 93005; 94640; 96361; 96374; 99284; 99285; J2919; Q9967

== ENCOUNTER → 2025-01-27 11:32 | Outpatient (BNV) | payer MEDICARE, SELFPAY | PROVIDERS: Emergency Provider Emergency Medicine; PCP Internal Medicine; Visit Provider Internal Medicine Cardiovascular Disease | DX: R00.0 Tachycardia, unspecified (principal) | CPT/HCPCS: 93010 ==

== ENCOUNTER → 2025-01-27 11:50 | Outpatient (BNV) | payer MEDICARE, SELFPAY | PROVIDERS: Emergency Provider Emergency Medicine; PCP Internal Medicine; Visit Provider Radiology Diagnostic Radiology | DX: J43.8 Other emphysema (principal) | CPT/HCPCS: 71045; 71275 ==

== ENCOUNTER 2025-02-09 14:00 | Outpatient (RCR) | payer MEDICARE, OTHER, SELFPAY ==
--- NOTE | 2024-12-28 14:35 | MHC.PT.EP ---
[facility] [place] Office [place] Office [place] [facility] [address] Laura dOell [address] [phone] F: [phone] F: [phone] F: [phone] F: [phone] Physical Therapy Plan of Care Date of Evaluation: 12/28/24 Date of Surgery: n/a Diagnosis: pain in L thigh Assessment: Patient is a 64 year old male presenting to PT with complaints of pain in his L thigh. Pt reports onset of pain began 4 months ago due to stepping in a hole. He presents today with impairments in pain, hip ROM, hip strength, tenderness to palpation . Pt's current occupation is none, with baseline physical activities including ambulating, stair negotiation, ADLs, sleeping on L. Pt expresses alf goal of reducing pain, and is motivated to work towards this in PT. Clinical presentation today is most consistent with signs and sx associated with L thigh pain and pt will benefit from skilled PT 2 week x 4 weeks to address the following problems and impairments noted upon evaluation: pain, hip ROM, hip strength, tenderness to palpation. His rehab potential is fair due to multiple comorbidities and high pain levels. These problems limit the patient with the following functional activities: ambulating, stair negotiation, ADLs, sleeping on L. The prescribed treatment plan of care is medically necessary. Co-morbidities of hx CVA, hx brain aneurysm, hx polysubstance abuse, seizure disorder were identified and taken into considerations of plan of care. Pt was educated on HEP, role of PT, prognosis, POC. Frequency and Duration: The patient will be seen 2 x week x 4 weeks Short Term Goals: Pt will demonstrate less pain at rest to <5/10 in 2 weeks. Pt will demonstrate improved him MMT strength by 1/3 grade in 2 weeks. Senior Care Goals: Pt will demonstrate improved LEFI score by 9 points for improved functional mobility in 4 weeks. Pt will demonstrate ability to ambulate with less pain and more symmetrical gait pattern in 4 weeks for return to PLOF. Pt will demonstrate ability to negotiate stairs with min to no pain in 4 weeks for improved access to his home. Treatment Plan: Modalities to reduce pain, spasms and effusion. Manual therapy to restore motion and function. Therapeutic exercise to improve strength and flexibility. Neuromuscular re-education for posture and balance. Therapeutic activities to return to functional activities of daily living. Electronically signed by: Hanna Hannon, PT, DPT, ATC Please sign and return to therapist. Thank you for your referral.
--- NOTE | 2025-03-16 11:28 | MHC.PT.DC ---
[facility] [place] Office [place] Office May Office [address] Laura Odell [address] [facility] [phone] F: [phone] F: [phone] F: [phone] F: [phone] Physical Therapy Discharge Report Diagnosis: pain in L thigh Date of Surgery: n/a Date of Evaluation: 12/28/24 Date of Discharge: 03/16/25 Treatments to Date: 4 Cancellations to Date: 3 No Shows to Date: 0 Discharge Status: Recommend MD Follow-up Discharge Summary: Pt had inpatient hospitalization so therefore needs to be d/c from skilled PT. Electronically signed by: Hanna Hannon, PT, DPT, ATC Please sign and return to therapist. Thank you for your referral.
== END 2025-03-16 11:28 | disposition home or self-care (01) ==
LOC: HO.PTCHIC 14:00
PROVIDERS: PCP Internal Medicine; Visit Provider Family Medicine
DX: M79.652 Pain in left thigh (principal)
CPT/HCPCS: 97110; 97162

== ENCOUNTER 2025-02-11 14:13 | Outpatient (AMB) | payer MEDICARE, SELFPAY ==
--- NOTE | 2025-02-11 14:31 | MHC.PC.OV ---
Vital Signs 02/11/25 14:32 Height 5 ft 9 in Weight 188 lb BMI 27.8 BP 120/80 Blood Pressure Location Lt brachial Position Sitting Pulse 91 Pulse Source Pulse Oximeter Temp 97.1 F Temp Source Temporal Artery Scan Pulse Oximetry (%) 95 Oxygen Delivery Method Room Air Intake Visit Reasons: [facility] 01/27 COPD Flared up Intake Note: Patient is here to follow-up after a visit the emergency department at [facility] on 01/27/25 Marketing Director Assisted Living Required: No Desktop Specialist: Present Accompanied by: Friend Allergies divalproex sodium [Depakote] Allergy (Unknown, Verified 02/11/25 14:32) Unknown rosuvastatin Allergy (Unknown, Verified 02/11/25 14:32) SOB finasteride Allergy (Intermediate, Uncoded 02/11/25 14:32) Hives Tobacco use date assessed: 02/11/25 Fall risk assessment: No Falls in past year Last assessed Fall Risk: 02/11/25 Dental Screening Dental Screen Date: 02/11/25 Did you have a dental visit in the last 12 months?: Yes Did you have a dental problem in the last 6 months where you did not have access to dental care?: No Was dental information given to patient?: Patient has dentist HPI HPI Comments History of Present Illness Details 64 y/o Male patient who presents to the clinic today for EDF. Pt was admitted at [facility] on 01/27 for SOB and wheezing due to COPD. He was discharged home on Prednisone and Z-pack. Pt is long-term cigarette smoker - trying to quit by using Nicotine Gum and Patches. [facility] Medical History (Updated 02/11/25 @ 15:05 by Rehana Huynh NP) COPD with acute exacerbation Somnolence, daytime SOB (shortness of breath) Atelectasis of left lung Anxiety Smoker Pharyngitis COPD (chronic obstructive pulmonary disease) Osteoarthritis of right hip Arthritis Abdominal hernia Numbness Habitual snoring COPD (chronic obstructive pulmonary disease) Tinea cruris Pes anserinus bursitis of left knee Upper respiratory tract infection Rib fractures Annual physical exam Contusion of chest Back strain Osteoarthritis of right hip Right hip pain Right middle lobe pulmonary infiltrate Sinus congestion Overweight (BMI 25.0-29.9) Urgency of micturition Carpal tunnel syndrome Femoral fracture Pulmonary nodule BPH (benign prostatic hyperplasia) Seizure disorder Insomnia Vitamin D deficiency Impaired glucose tolerance Hypercholesterolemia GERD (gastroesophageal reflux disease) Polysubstance abuse Left subclavian artery occlusion Brain aneurysm CVA (cerebral vascular accident) Vocal cord polyp Vitamin B12 deficiency Surgical History History of nasal surgery H/O colonoscopy Stenosis of subclavian bypass History of surgery History of orthopedic surgery History of knee replacement procedure of right knee Family History Father CAD (coronary artery disease) Kidney malignancy Mother Myocardial infarction Brother Prostate cancer Social History Household Members: Other Household Members Other:: roomate Housing: Other Housing Other:: trailer Are you a primary health care attorney to a significant other at home: No Do you presently have visiting nurse or other home services: No 75 years or older and lives alone: No Unable to assess alcohol history related to: Unknown Alcohol intake: current Alcohol intake frequency: 3 or more drinks per day Alcohol type: beer Comment: 4 drinks last night Patient Tobacco Use Status: Former Tobacco user Tobacco use type: Cigarette Cigarette Packs Per Day: 5 Cigarettes Per Day: 0.5 e-Cigarette/Vaping Use: Never Used Second Hand Smoke Exposure: Yes Substance Use Type: Marijuana service: No Current occupational status: unemployed Cognitive needs: Yes (Cane) Hearing needs: No Vision needs: Yes Questionnaire PHQ-9 Over the last 2 weeks, how often have you been bothered by any of the following problems? 1. Little interest or pleasure in doing things: nearly every day 2. Feeling down, depressed, or hopeless: nearly every day 3. Trouble falling or staying asleep, or sleeping too much: nearly every day 4. Feeling tired or having little energy: nearly every day 5. Poor appetite or overeating: nearly every day 6. Feeling bad about yourself - or that you are a failure or have let yourself or your family down: nearly every day 7. Trouble concentrating on things, such as reading the newspaper or watching television: not at all 8. Moving or speaking so slowly that other people could have noticed. Or the opposite - being so fidgety or restless that you have been moving around a lot more than usual: more than half the days 9. Thoughts that you would be better off or of hurting yourself in some way: not at all Total score: 20 Depression Screening Interpretation: Positive Depression Screening Done: Yes Source: Developed by Drs. Basilio Esteves, Gina Sales, Zev Ambriz and colleagues, with an educational teodoro from [employer]. Thrive Questionnaire Date Thrive assessed: 02/11/25 I am a: Patient What is your living situation today?: I have a steady place to live Within the past 12 months, did the food you bought not last and you didn't have the money to get more?: Sometimes True Within the past 12 months, did you worry whether your food would run out before you got money to buy more?: Sometimes True Do you have trouble paying for medicines?: No Do you have trouble getting transportation to medical appointments?: Yes Do you have trouble paying your heating and electricity bill?: No Do you have trouble taking care of your child, family member or friend?: No Do you have trouble with day-to-day activities such as bathing, preparing meals, shopping, managing finances, etc.?: Yes Are you currently unemployed and looking for a job?: No Are you interested in more education?: No Currently or been in a relationship where the following occur: No concerns reported THRIVE Score: 3 AUDIT C Alcohol Use Questionnaire (AUDIT-C) 2. How many drinks containing alcohol do you have on a typical day when you are drinking?: 3 or 4 3. How often do you have six or more drinks on one occasion?: Never Total Score: 1 DANIE-7 AMB Questionnaire DANIE-7 Date DANIE - 7 assessed: 02/11/25 Feeling nervous, anxious, or on edge: 0 = Not at all Not being able to stop or control worryin = Not at all Worrying too much about different things: 0 = Not at all Trouble relaxin = Not at all Being so restless that it is hard to sit still: 0 = Not at all Becoming easily annoyed or irritable: 0 = Not at all Feeling afraid as if something awful might happen: 0 = Not at all Total DANIE-7 score (0-4 normal; 5-9 mild; 10-14 moderate; 15-21 severe): 0 Source: Developed by Drs. Basilio Esteves, Gina Sales, Zev Ambriz and colleagues, with an educational teodoro from [employer]. Review of Systems Const All systems reviewed & are unremarkable except as noted in HPI and below Physical exam (Primary Care) Vital Signs: Last Vital Signs Temp 97.1 F 02/11/25 14:32 Pulse 91 02/11/25 14:32 BP 120/80 02/11/25 14:32 Pulse Ox 95 02/11/25 14:32 Oxygen Delivery Method Room Air 02/11/25 14:32 BMI result Body Mass Index 27.8 Tobacco/Smoking Status: Tobacco use Status Tobacco use date assessed 02/11/25 02/11/25 14:38 Patient Tobacco Use Status Former Tobacco user 02/11/25 14:38 Tobacco use type Cigarette 02/11/25 14:38 e-Cigarette/Vaping Use Never Used 02/11/25 14:38 PHQ-9: PHQ-9 Score PHQ-9: Total score 20 02/11/25 15:06 Depression Screening Interpretation: Positive Thrive Assessment: Date of Thrive Assessment Date Thrive assessed 02/11/25 02/11/25 14:38 Currently or been in a relationship where the following occur: No concerns reported Const General: no acute distress Nutritional Appearance: obese Orientation/consciousness: patient oriented x3 Resp Effort & Inspection: normal respiratory effort and able to speak in complete sentences Auscultation: clear to auscultation bilaterally, no crackles, no rales, no rhonchi and no wheezes Cardio Rhythm: regular rhythm Heart sounds: S1 normal heart sound present and S2 normal heart sound present Neuro General: patient oriented x3 Coding Level of Care Code Est Pt Level 4 (88145) Diagnoses COPD with acute exacerbation J44.1 Time Spent (min) 20 Assessment & Plan Assessment & Plan (1) COPD with acute exacerbation: Code(s): J44.1 - Chronic obstructive pulmonary disease with (acute) exacerbation Category: Medical Plan: Managed by Pulmonology. Medications: Refilled albuterol sulfate 2.5 mg (3 mL) inhalation QID 30 days PRN 180 mL 1RF shortness of breath or wheezing J43.9 - Emphysema, unspecified ipratropium-albuterol 0.5 mg-3 mg(2.5 mg base)/3 mL 3 mL inhalation Q4H 30 days PRN 90 mL 0RF wheezing J44.1 - Chronic obstructive pulmonary disease with (acute) exacerbation Discontinued prednisone Discontinued Reason: Patient Completed Course 50 mg PO DAILY 5 days 5 tabs 0RF azithromycin start on day 2 of therapy Discontinued Reason: Patient Completed Course 250 mg PO DAILY 4 days 4 tabs 0RF
[2025-02-11 14:32] VITALS: BP 120/80; PULSE 91; TEMP 36.2; O2SAT 95; BMI 27.8
--- OUTSIDE RECORDS SUMMARY | 2025-02-11 14:54 | XMS_ITS | Encounter Summary ---
Author Organization [facility] Address [address] [place] [address] Care Team Providers Care Party Plan Sales Unit Advisor Name Role Phone Unavailable Primary Care Provider Unavailabl e Encounter Details Date Type Department Care Team (Late st Contact Info) Description 03/28/2022 Dental Interim Note [facility] [address] [place] [phone] Anneliese Moreno, DDS [address] [place] [address] Social History Tobacco Use Types Packs/Day Years [...] Care Team (Late st Contact Info) Description 04/06/2025 1:50 PM EDT Interim Notes [facility] Unit [address] [place] [phone] 04/06/2025 2:20 PM EDT Office Visit [facility] Dental [address] [place] [phone] Monica Cummings, LUZ MARINA [address] [place] [address] 04/06/2025 3:20 PM EDT Interim Notes [facility] [address] [place] [phone] 06/16/2025 1:40 PM EDT Office Visit [facility] Dental [facility] [place] [phone] Jeaneth Chavez [address] [place] [address] documented as of this encounter Visit Diagnoses Not on filedocumented in this encounter
--- OUTSIDE RECORDS SUMMARY | 2025-02-11 14:54 | XMS_ITS | Encounter Summary ---
Author Organization [facility] Address [address] [place] [address] Care Team Providers Care Yarn Mercerizer Operator Name Role Phone Unavailable Primary Care Provider Unavailabl e Reason for Visit * Reason Comments Dental Restorative Encounter Details Date Type Department Care Team (Late st Contact Info) Description 02/08/2025 1:00 PM EDT Office Visit [facility] [address] [place] [phone] Emiliano Monica Batsheva, DDS [address] [place] [address] Caries (Primary Dx) Social History Tobacco Use Types Packs/Day Years [...] Orientation Straight 03/20/2022 8: 07 AM PDT documented as of this encounter Last Filed Vital Signs Vital Sign Reading Time Taken Comments Blood Pressure 108/72 02/08/2025 1:42 PM EDT Pulse 94 02/08/2025 1:42 PM EDT Temperature - - Respiratory Rate - - Oxygen Saturation - - Inhaled Oxygen Concentration - - Weight - - Height - - Body Mass Index - - documented in this encounter Progress Notes * Monica Cummings DDS - 02/08/2025 2:23 PM EDT Restorative Subjective Stas Koenig, 64 year old male, presents alone for restorative. Stopper Grinder: No No chief complaint on file. Objective RMHx: Yes Vitals: Vitals: 02/08/25 1342 BP: 108/72 Pulse: 94 BP Site: Left Wrist BP Position: Supine BP Cuff Size: Regular Adult Pain Score: 0 - No pain Assessment Dx: K02.9 Caries (primary encounter diagnosis) Dx Details (Clinical Decision-Making): Tooth#27 B decay visible clinically. Plan Informed Consent/PARQ (Procedure, Alternatives, Risks, Questions): Patient confirms informed consent using PARQ. Dental procedures in this visit D9450 - CASE PRESENTATION SUBS DTL & EXTENSIVE TX PLN (Completed) Service provider: Monica Cummings DDS Billing provider: Monica Cummings DDS D2330 - RESIN-BASED COMPOSITE ONE SURFACE ANTERIOR 27 F(V) (Completed) Service provider: Monica Cummings DDS Billing provider: Monica Cummings DDS Topical Anesthetic: None Local Anesthetic: None Injection administered: None Isolation used: Cotton roll and Dri-Angle Excavation of caries completed. No pulpal involvement Details: Mccoy and ectch Shade: A3. Contour/Upper Sorbian: Yes Verified occlusion, contacts, and floss Post-Op Information Given: verbal Referral: No orders of the following type(s) were placed in this encounter: Referral. Rx: No orders of the defined types were placed in this encounter. Behavior: Excellent DA: aylin NV: Treatment - Restorative documented in this encounter Miscellaneous Notes * Patient Instructions - Monica Cummings DDS - 02/08/2025 2:20 PM EDT If you are not able to keep your appointment please call 24-48 hours before your appointment to cancel or reschedule. documented in this encounter Plan of Treatment Upcoming Encounters Date Type Department Care Team (Late st Contact Info) Description 04/06/2025 1:50 PM EDT Interim Notes [facility] Unit [address] [place] [phone] 04/06/2025 2:20 PM EDT Office Visit [facility] Dental [address] [place] [phone] Monica Cummings DDS [address] [place] [phone] 04/06/2025 3:20 PM EDT Interim Notes [address] [phone] 06/16/2025 1:40 PM EDT Office Visit [facility] Dental [address] [place] [phone] Jeaneth Chavez [address] [place] [address] documented as of this encounter Procedures Procedure Name Priority Date/Time Associated Diagnosis Comments CASE PRESENTATION SUBS DTL & EXTENSIVE TX PLN Routine 02/08/2025 1:00 PM EDT Caries 27 F(V) RESIN-BASED COMPOSITE ONE SURFACE ANTERIOR Routine 02/08/2025 1:00 PM EDT Caries documented in this encounter Visit Diagnoses Diagnosis Caries- Primary Unspecified dental caries documented in this encounter
--- OUTSIDE RECORDS SUMMARY | 2025-02-11 14:54 | XMS_ITS | Clinical Summary ---
Author Organization [facility] Address [address] [place] [address] Care Team Providers Care Hosiery Mater Name Role Phone Unavailable Primary Care Provider [...] daily apply a thin ribbon on toothbrush. Hornick thoroughly once daily for two minutes, preferably [...] Problem Noted Date Diagnosed Date Intracranial aneurysm ([facility]) 05/03/2024 Seizure ([facility]) 05/03/2024 Bursitis of left knee 06/20/2022 Chronic pain 03/26/2022 Encounters Date Type Department Care Team Description 02/08/2025 1:00 PM EDT Office Visit [facility] [address] [place] [phone] Monica Cummings DDS Caries (Primary Dx) 12/16/2024 1:00 PM EST Office Visit [facility] [address] [place] [phone] Jeaneth Chavez Caries of enamel [...] Description 04/06/2025 1:50 PM EDT Interim Notes [facility] [place] [phone] 04/06/2025 2:20 PM EDT Office Visit [facility] [address] [place] [phone] Monica Cummings DDS [address] [place] [address] 04/06/2025 3:20 PM EDT Interim Notes [facility] [address] [place] [phone] 06/16/2025 1:40 PM EDT Office Visit [facility] [address] [place] [phone] Jeaneth Chavez [address] [place] [address] Health Maintenance Due Date Last Done Comments [...] Aortic Aneurysm Screening 2023 Falls Prevention 2023 [id number] ( - season) 2024 Imm-Influenza (#1) 2024 Alcohol and Drug Screen 10/20/2024 Depression Annual Screen 10/20/2024 Dental BW 12/18/2025 12/16/2024, 03/20, 02/04/2023, Additional history exists Dental Examination 12/18/2025 12/16/2024, 0 04/01/2024, 02/04/2023, Additional history exists Dental Perio Charting 12/18/2025 12/16/2024 , 02/04/2023, 03/26/2022 Dental Prophy 12/18/2025 12/16/2024, 0603/2024, 02/04/2023, Additional history exists Hypertension Screening (#1) 02/08/2026 Procedures Procedure Name Priority Date/Time Associated Diagnosis Comments 27 F(V) RESIN-BASED COMPOSITE ONE SURFACE ANTERIOR Routine 02/08/2025 1:00 PM EDT Caries CASE PRESENTATION SUBS DTL & EXTENSIVE TX PLN Routine 02/08/2025 1:00 PM EDT Caries PERIODIC ORAL EVALUATION ESTABLISHED PATIENT Routine 12/16/2024 [...] enamel (incipient) Caries from Last 3 Months [facility] DENTAL
--- OUTSIDE RECORDS SUMMARY | 2025-02-11 14:54 | XMS_ITS | Clinical Summary ---
Author Organization [facility] Address [address] [place] [address] Care Team Providers Care Bronze Plater Name Role Phone Unavailable Primary Care Provider [...] - HSN FULL (MEDICAID) [place] [id number]
== END 2025-02-11 15:32 | disposition home or self-care (01) ==
LOC: HO.HMCH 14:14
PROVIDERS: PCP Internal Medicine; Visit Provider Nurse Practitioner Family
DX: J44.1 Chronic obstructive pulmonary disease with (acute) exacerbation (principal)

== ENCOUNTER → 2025-02-11 14:13 | Outpatient (BNVA) | payer MEDICARE, SELFPAY | PROVIDERS: PCP Internal Medicine; Visit Provider Nurse Practitioner Family | DX: J44.1 Chronic obstructive pulmonary disease with (acute) exacerbation (principal); F17.210 Nicotine dependence, cigarettes, uncomplicated | CPT/HCPCS: 96127; 99212 ==

== ENCOUNTER 2025-02-15 12:16 | Outpatient (AMB) | payer MEDICARE, SELFPAY ==
--- NOTE | 2025-02-15 12:16 | A.OFFVIS_ITS ---
Intake Visit Reasons: 3m/PSA Intake Note: Patient is present for 3M/PSA Urology Medication:DUTASTTERIDE,TAMSULOSIN,VITAMIN B12 Antibiotic Allergy:ROSUVASTATIN Blood Thinner:ASPIRIN,APIXABAN Project Manager/Team Coach Required: No Allergies divalproex sodium [Depakote] Allergy (Unknown, Verified 02/15/25 12:17) Unknown rosuvastatin Allergy (Unknown, Verified 02/15/25 12:17) SOB finasteride Allergy (Intermediate, Uncoded 02/15/25 12:17) Hives HPI Comments Details: Stas is a pleasant male. He is a patient of Dr. Feldman. He is seen for the following urologic conditions - elevated PSA - lower urinary tract Telemedicine Evaluation 15 min Consultation [employer] Three-month follow-up PSA Significant drop in PSA indicating rise most likely related to progressive BPH Six-month follow-up continue tamsulosin and dutasteride Lower tract symptoms PSA - 05/09 3.5, 06/11 5.0, 04/12 4.9, 11/13 6.4, 02/11 2.4 Current therapy tamsulosin, PFSH Medical History (Updated 02/11/25 @ 15:05 by Rehana Huynh NP) COPD with acute exacerbation Somnolence, daytime SOB (shortness of breath) Atelectasis of left lung Anxiety Smoker Pharyngitis COPD (chronic obstructive pulmonary disease) Osteoarthritis of right hip Arthritis Abdominal hernia Numbness Habitual snoring COPD (chronic obstructive pulmonary disease) Tinea cruris Pes anserinus bursitis of left knee Upper respiratory tract infection Rib fractures Annual physical exam Contusion of chest Back strain Osteoarthritis of right hip Right hip pain Right middle lobe pulmonary infiltrate Sinus congestion Overweight (BMI 25.0-29.9) Urgency of micturition Carpal tunnel syndrome Femoral fracture Pulmonary nodule BPH (benign prostatic hyperplasia) Seizure disorder Insomnia Vitamin D deficiency Impaired glucose tolerance Hypercholesterolemia GERD (gastroesophageal reflux disease) Polysubstance abuse Left subclavian artery occlusion Brain aneurysm CVA (cerebral vascular accident) Vocal cord polyp Vitamin B12 deficiency Surgical History History of nasal surgery H/O colonoscopy Stenosis of subclavian bypass History of surgery History of orthopedic surgery History of knee replacement procedure of right knee Family History Father CAD (coronary artery disease) Kidney malignancy Mother Myocardial infarction Brother Prostate cancer Social History Household Members: Other Household Members Other:: roomate Housing: Other Housing Other:: trailer Are you a primary intensive care anaesthetist to a significant other at home: No Do you presently have visiting nurse or other home services: No 75 years or older and lives alone: No Unable to assess alcohol history related to: Unknown Alcohol intake: current Alcohol intake frequency: 3 or more drinks per day Alcohol type: beer Comment: 4 drinks last night Patient Tobacco Use Status: Former Tobacco user Tobacco use type: Cigarette Cigarette Packs Per Day: 5 Cigarettes Per Day: 0.5 e-Cigarette/Vaping Use: Never Used Second Hand Smoke Exposure: Yes Substance Use Type: Marijuana service: No Current occupational status: unemployed Cognitive needs: Yes (Cane) Hearing needs: No Vision needs: Yes Review of Systems Const All systems reviewed & are unremarkable except as noted in HPI and below Reports no additional complaints Resp Reports no additional complaints GI Reports no additional complaints Reports as per HPI Musc Reports no additional complaints Physical Exam Telemedicine evaluation Appropriate responses Regular breathing rate and rhythm HEENT Head: Yes normal to inspection Ears: hearing grossly normal bilaterally Eyes General: appearance normal, both eyes and all related structures Neck Neck: Yes normal visual inspection Chest Chest palpation & inspection: normal inspection of the chest Resp Effort & Inspection: normal respiratory effort and able to speak in complete sentences Telehealth Telehealth Location of provider rendering services: practice address Location of patient: address on file Patient Identification confirmed using: Name, : Yes Telehealth method: voice only Patient verbally consented to treatment: Yes Patient verbally consented to billing insurance company: Yes Patient informed of any privacy concerns related to visit: Yes Assessment & Plan Assessment & Plan (1) BPH (benign prostatic hyperplasia): Code(s): N40.0 - Benign prostatic hyperplasia without lower urinary tract symptoms Category: Medical Qualifiers: Lower urinary tract symptom presence: symptoms present Lower urinary tract symptom detail: urinary frequency Qualified Code(s): N40.1 - Benign prostatic hyperplasia with lower urinary tract symptoms; R35.0 - Frequency of micturition (2) PSA elevation: Code(s): R97.20 - Elevated prostate specific antigen [PSA] Category: Medical Plan Six-month follow-up Orders: Orders Prostate Specific Antigen 6 Months R97.20 - Elevated prostate specific antigen [PSA] Medications: Changed From dutasteride 0.5 mg PO DAILY 30 caps 1RF To dutasteride 0.5 mg PO DAILY 90 days 90 caps 1RF From tamsulosin 0.4 mg PO DAILY 90 caps 0RF To tamsulosin 0.4 mg PO DAILY 90 days 90 caps 1RF Patient Instructions: This note is constructed using voice recognition software. While every effort has been made to ensure accuracy collector errors may have been included. Imaging studies, laboratory and physical exam results were discussed and reviewed in detail. No major barriers to patient understanding were identified. An opportunity to ask questions regarding the treatment plan was provided. All questions were answered. The patient expressed understanding and agreement with the above treatment plan. The patient is aware they should contact our office by phone for worsening of their current condition or the appearance of new urologic symptoms. Compliance is encouraged with any medications and followup testing that is ordered. It is a privilege to participate in the urologic care of your patient. If you have any questions or concerns regarding treatment for the above conditions, or other urologic issues, please do not hesitate to contact me. The office telephone contact is [phone]. Sincerely, Dr Siddharth Boss MD, [facility] - Urology Compassionate Specialist Care for the Genitourinary System Coding Level of Care Code Tele Est Pt Level 3 (76994) Complex EM visit Add On G2211 Diagnoses Benign prostatic hyperplasia with urinary frequency N40.1; R35.0 Lower urinary tract symptom presence: symptoms present Lower urinary tract symptom detail: urinary frequency PSA elevation R97.20
--- OUTSIDE RECORDS SUMMARY | 2025-02-15 14:15 | XMS_ITS | Encounter Summary ---
Author Organization [facility] Address [address] [place] [address] Care Team Providers Care Call Center Representative Name Role Phone Unavailable Primary Care Provider Unavailabl e Encounter Details Date Type Department Care Team (Late st Contact Info) Description 03/28/2022 Dental Interim Note [facility] Dental [address] [place] [address] Anneliese Moreno, DDS [address] [place] [address] Social History Tobacco Use Types Packs/Day Years [...] Description 04/06/2025 1:50 PM EDT Interim Notes [facility] Unit [address] [place] [phone] 04/06/2025 2:20 PM EDT Office Visit [facility] [address] [place] [phone] Monica Cummings, LUZ MARINA [address] [place] [address] 04/06/2025 3:20 PM EDT Interim Notes [facility] Unit [address] [place] [phone] 06/16/2025 1:40 PM EDT Office Visit [facility] [place] [phone] Jeaneth Chavez [address] [place] [address] documented as of this encounter Visit Diagnoses Not on filedocumented in this encounter
--- OUTSIDE RECORDS SUMMARY | 2025-02-15 14:15 | XMS_ITS | Clinical Summary ---
Author Organization [facility] Address [address] 7t [place] [address] Care Team Providers Care Elevators Inspector Name Role Phone Unavailable Primary Care Provider [...] - HSN FULL (MEDICAID) [place] [id number]
--- OUTSIDE RECORDS SUMMARY | 2025-02-15 14:15 | XMS_ITS | Clinical Summary ---
Author Organization [facility] Address [address] [place] [address] Care Team Providers Care Class A Lineman Name Role Phone Unavailable Primary Care Provider [...] daily apply a thin ribbon on toothbrush. [place] thoroughly once daily for two minutes, preferably [...] Problem Noted Date Diagnosed Date Intracranial aneurysm ([facility]) 05/03/2024 Seizure ([facility]) 05/03/2024 Bursitis of left knee 06/20/2022 Chronic pain 03/26/2022 Encounters Date Type Department Care Team Description 02/08/2025 1:00 PM EDT Office [facility] [address] [place] [address] Monica Cummings DDS Caries (Primary Dx) 12/16/2024 1:00 PM EST Office Visit [facility] Dental [address] [place] [address] Jeaneth Chavez Caries of enamel [...] EDT Interim Notes [facility]9 [place] [phone] 04/06/2025 2:20 PM EDT Office Visit [facility] [address] [place] [phone] Monica Cummings DDS [address] [place] [address] 04/06/2025 3:20 PM EDT Interim Notes [facility] [address] [place] [phone] 06/16/2025 1:40 PM EDT [facility] [address] [place] [phone] Jeaneth Chavez [address] [place] [address] Health Maintenance Due Date Last Done Comments [...] Aortic Aneurysm Screening 2023 Falls Prevention 2023 [id number] ( - season) 2024 Imm-Influenza (#1) 2024 [...] enamel (incipient) Caries from Last 3 Months [facility] DENTAL
== END 2025-02-15 13:31 | disposition home or self-care (01) ==
LOC: HO.HUSH 12:16
PROVIDERS: PCP Internal Medicine; Visit Provider Urology
DX: N40.1 Benign prostatic hyperplasia with lower urinary tract symptoms (principal); R35.0 Frequency of micturition; R97.20 Elevated prostate specific antigen [PSA]
CPT/HCPCS: 99213; G2211

== ENCOUNTER → 2025-02-15 12:16 | Outpatient (BNVA) | payer MEDICARE, SELFPAY | PROVIDERS: PCP Internal Medicine; Visit Provider Urology ==

== ENCOUNTER 2025-02-18 12:21 | Outpatient (REF) | payer MEDICARE, SELFPAY ==
--- OUTSIDE RECORDS SUMMARY | 2025-02-18 12:56 | XMS_ITS | Clinical Summary ---
Author Organization [facility] Address [address] [place] [address] Care Team Providers Care Stone Dresser Name Role Phone Unavailable Primary Care Provider [...] daily apply a thin ribbon on toothbrush. [place] thoroughly once daily for two minutes, preferably [...] Problem Noted Date Diagnosed Date Intracranial aneurysm ([facility]) 05/03/2024 Seizure ([facility]) 05/03/2024 Bursitis of left knee 06/20/2022 Chronic pain 03/26/2022 Encounters Date Type Department Care Team Description 02/08/2025 1:00 PM EDT Office Visit [facility] [address] [place] [address] Monica Cummings DDS Caries (Primary Dx) 12/16/2024 1:00 PM EST Office Visit [facility] Dental [address] [place] [address] Jeaneth Chavez Caries of [...] EDT Interim Notes [facility]9 [place] [phone] 04/06/2025 2:20 PM EDT Office Visit [facility] Dental [address] [place] [phone] Monica Cummings DDS [address] [place] [address] 04/06/2025 3:20 PM EDT Interim Notes [facility] [address] [place] [phone] 06/16/2025 1:40 PM EDT [facility] [address] [place] [phone] Jeaneth Chavez [address] [place] [address] Health Maintenance Due Date Last Done Comments [...] Aortic Aneurysm Screening 2023 Falls Prevention 2023 [id number] ( - season) 2024 Imm-Influenza (#1) 2024 [...] enamel (incipient) Caries from Last [address] [facility] DENTAL
--- OUTSIDE RECORDS SUMMARY | 2025-02-18 12:56 | XMS_ITS | Encounter Summary ---
Author Organization [facility] Address [address] [place] [address] Care Team Providers Care Irrigation Technician Name Role Phone Unavailable Primary Care Provider Unavailabl e Encounter Details Date Type Department Care Team (Late st Contact Info) Description 03/28/2022 Dental Interim Note [facility] Dental [address] [place] [address] Anneliese Moreno, DDS [address] [place] [address] Social History Tobacco Use Types Packs/Day Years [...] Description 04/06/2025 1:50 PM EDT Interim Notes [facility] Unit [address] [place] [phone] 04/06/2025 2:20 PM EDT Office Visit [facility] Dental [address] [place] [phone] Monica Cummings, LUZ MARINA [address] [place] [address] 04/06/2025 3:20 PM EDT Interim Notes [facility] Unit [address] [place] [phone] 06/16/2025 1:40 PM EDT Office Visit [facility] Dental [facility]9 [place] [phone] Jeaneth Chavez [address] [place] [address] documented as of this encounter Visit Diagnoses Not on filedocumented in this encounter
--- OUTSIDE RECORDS SUMMARY | 2025-02-18 12:56 | XMS_ITS | Clinical Summary ---
Author Organization [facility] Address [address] [facility] 7t [place] [address] Care Team Providers Care Guest Service Agent Name Role Phone Unavailable Primary Care Provider [...] - HSN FULL (MEDICAID) [place] [id number]
== END 2025-02-18 12:22 | disposition home or self-care (01) ==
LOC: HO.SH 12:21
PROVIDERS: Visit Provider Internal Medicine
DX: Z01.118 Encounter for examination of ears and hearing with other abnormal findings (principal); H90.3 Sensorineural hearing loss, bilateral
CPT/HCPCS: 92557; 92567

== ENCOUNTER 2025-03-02 12:17 | Outpatient (AMB) | payer MEDICARE, SELFPAY ==
[2025-03-02 12:35] VITALS: BP 106/64; PULSE 100; TEMP 37.3; O2SAT 95; BMI 30.9
--- NOTE | 2025-03-02 12:35 | AM.OFFWIN_ITS ---
Intake Vital Signs 03/02/25 12:35 Height 5 ft 9 in Weight 209 lb BMI 30.9 BP 106/64 Blood Pressure Location Rt brachial Position Sitting Pulse 100 Pulse Source Pulse Oximeter Temp 99.1 F Temp Source Oral Pulse Oximetry (%) 95 Oxygen Delivery Method Room Air Intake Visit Reasons: EP * Pain & swollen LT leg & ? thrush on tongue Patient Tobacco Use Status: Former Tobacco user Allergies divalproex sodium [Depakote] Allergy (Unknown, Verified 03/02/25 12:36) Unknown rosuvastatin Allergy (Unknown, Verified 03/02/25 12:36) SOB finasteride Allergy (Intermediate, Uncoded 02/15/25 12:17) Hives Do you need a note to return to daycare/school/sports/work: No HPI HPI Comments History of Present Illness Details History of Present Illness - The patient is a 64-year-old male pres enting with 2 complaints, oral pain and left hip pain. The oral pain started approximately one week ago and is associated with ulcerations on the tongue, he thinks it is thrush; warm salt water rinses have been utilized without significant relief. The left hip pain has been progressively worsened over time and is exacerbated by weight-bearing activities. He says he did trip and twisted his leg a while ago, prior to when this started. The patient has a past medical history of right hip replacement, he thought Dr Mobley took XR of his left hip but I only see pelvic XR. The patient reports increased sedentary lifestyle as it is difficult to ambulate with his walker and disturbed sleep due to the pain. He has been seen several times for this issue but with no definitive diagnosis and the pain is getting worse. Tramadol has given him some relief but no other meds help. He is on a blood thinner and has no hx of blood clots. Physical Exam General: Cooperative, healthy appearing, comfortable, no acute distress and well developed Orientation: Patient oriented x3 Limitations: using a walker Head: Normal to inspection Ears: Hearing grossly normal bilaterally Nose: Normal External nose present Face and sinus: Normal facial exam Eyes: Appearance normal, both eyes and all related structures Neck: Normal visual inspection and Yes full ROM Respiratory: Normal respiratory effort and able to speak in complete sentences. Skin: No rashes or lesions noted Neuro: Patient oriented x3, difficulty ambulating Extremities: left hip anterior very ttp extending to front of thigh. no edema, erythema or warmth noted. Normal to inspection otherwise. [facility] Medical History (Updated 03/02/25 @ 13:09 by Harleen Meadows PA-C) COPD with acute exacerbation Somnolence, daytime SOB (shortness of breath) Atelectasis of left lung Anxiety Smoker Pharyngitis COPD (chronic obstructive pulmonary disease) Osteoarthritis of right hip Arthritis Abdominal hernia Numbness Habitual snoring COPD (chronic obstructive pulmonary disease) Tinea cruris Pes anserinus bursitis of left knee Upper respiratory tract infection Rib fractures Annual physical exam Contusion of chest Back strain Osteoarthritis of right hip Right hip pain Right middle lobe pulmonary infiltrate Sinus congestion Overweight (BMI 25.0-29.9) Urgency of micturition Carpal tunnel syndrome Femoral fracture Pulmonary nodule BPH (benign prostatic hyperplasia) Seizure disorder Insomnia Vitamin D deficiency Impaired glucose tolerance Hypercholesterolemia GERD (gastroesophageal reflux disease) Polysubstance abuse Left subclavian artery occlusion Brain aneurysm CVA (cerebral vascular accident) Vocal cord polyp Vitamin B12 deficiency Surgical History History of nasal surgery H/O colonoscopy Stenosis of subclavian bypass History of surgery History of orthopedic surgery History of knee replacement procedure of right knee Family History Father CAD (coronary artery disease) Kidney malignancy Mother Myocardial infarction Brother Prostate cancer Social History Household Members: Other Household Members Other:: roomate Housing: Other Housing Other:: trailer Are you a primary senior care provider to a significant other at home: No Do you presently have visiting nurse or other home services: No 75 years or older and lives alone: No Unable to assess alcohol history related to: Unknown Alcohol intake: current Alcohol intake frequency: 3 or more drinks per day Alcohol type: beer Comment: 4 drinks last night Patient Tobacco Use Status: Former Tobacco user Tobacco use type: Cigarette Cigarette Packs Per Day: 5 Cigarettes Per Day: 0.5 e-Cigarette/Vaping Use: Never Used Second Hand Smoke Exposure: Yes Substance Use Type: Marijuana service: No Current occupational status: unemployed Cognitive needs: Yes (Cane) Hearing needs: No Vision needs: Yes Review of Systems Const All systems reviewed & are unremarkable except as noted in HPI and below Physical Exam Vital Signs: Last Vital Signs Temp 99.1 F 03/02/25 12:35 Pulse 100 03/02/25 12:35 BP 106/64 03/02/25 12:35 Pulse Ox 95 03/02/25 12:35 Oxygen Delivery Method Room Air 03/02/25 12:35 BMI result Body Mass Index 30.9 Assessment & Plan Assessment & Plan (1) Acute pain of left hip: Code(s): M25.552 - Pain in left hip Plan: as below (2) Pain in left leg: Code(s): M79.605 - Pain in left leg Plan: Regarding the left hip pain, I recommended obtaining an x-ray of the left hip and upper leg to gain more insight into the etiology of the pain. The patient was given tramadol for pain management, with instructions to avoid taking it at night to prevent dependency and adverse effects. The immediate x-ray follow-up was arranged with plans for a follow-up call to discuss the results. Question whether this is a blood clot but patient is on Eliquis which he states he is compliant with, so less likely. Patient was informed and verbally consented to the use of an ambient scribe for clinic note documentation during this visit. (3) Canker sores oral: Code(s): K12.0 - Recurrent oral aphthae Plan: For the oral ulcerations, I recommended maintaining oral hygiene with warm salt water rinses and using [id number] numbing sprays for pain relief. If the ulcers persist, I advised potential further evaluation by a dental or oral specialist to exclude serious lesions, given the patient's smoking history. Orders: Orders XR hip LT w PEL1V Today M25.552 - Pain in left hip XR humerus LT Today M79.605 - Pain in left leg Medications: Refilled tramadol 50 mg PO BID 30 days PRN 30 tabs 0RF pain Coding Level of Care Code Est Pt Level 4 (94630) Diagnoses Acute pain of left hip M25.552 Pain in left leg M79.605 Canker sores oral K12.0
--- OUTSIDE RECORDS SUMMARY | 2025-03-02 12:49 | XMS_ITS | Encounter Summary ---
Author Organization [facility] Address [address] [place] [address] Care Team Providers Care Deputy Register Of Deeds Name Role Phone Unavailable Primary Care Provider Unavailabl e Encounter Details Date Type Department Care Team (Late st Contact Info) Description 03/28/20[address] Dental Inter[address] [facility] Dental [address] [place] [address] Anneliese Moreno, DDS [address] [place] [address] Social History Tobacco Use Types Packs/Day Years [...] Description 04/06/2025 1:50 PM EDT Interim Notes [facility] Unit [address] [place] [phone] 04/06/2025 2:20 PM EDT Office Visit [facility] Dental [address] [place] [phone] Monica Cummings, LUZ MARINA [address] [place] [address] 04/06/2025 3:20 PM EDT Interim Notes [facility] Unit [address] [place] [phone] 06/16/2025 1:40 PM EDT Office Visit [facility] Dental [facility]9 [place] [phone] Jeaneth Chavez [address] [place] [address] documented as of this encounter Visit Diagnoses Not on filedocumented in this encounter
--- OUTSIDE RECORDS SUMMARY | 2025-03-02 12:49 | XMS_ITS | Clinical Summary ---
Author Organization [facility] Address [address] [place] [address] Care Team Providers Care Coupon Collection Clerk Name Role Phone Unavailable Primary Care Provider [...] daily apply a thin ribbon on toothbrush. [place] thoroughly once daily for two minutes, preferably [...] Problem Noted Date Diagnosed Date Intracranial aneurysm ([facility]) 05/03/2024 Seizure ([facility]) 05/03/2024 Bursitis of left knee 06/20/2022 Chronic pain 03/26/2022 Encounters Date Type Department Care Team Description 02/08/2025 1:00 PM EDT Office Visit [facility] [address] [place] [address] Monica Cummings DDS Caries (Primary Dx) 12/16/2024 1:00 PM EST Office Visit [facility] Dental [address] [place] [phone] Jeaneth Chavez Caries of enamel [...] EDT Interim Notes [facility]9 [place] [phone] 04/06/2025 2:20 PM EDT Office Visit [facility] Dental [address] [place] [phone] Monica Cummings DDS [address] [place] [address] 04/06/2025 3:20 PM EDT Interim Notes [facility] [address] [place] [phone] 06/16/2025 1:40 PM EDT [facility] [address] [place] [phone] Jeaneth Chavez [address] [place] [address] Health Maintenance Due Date Last Done Comments [...] Aortic Aneurysm Screening 2023 Falls Prevention 2023 [id number] ( - season) 2024 Imm-Influenza (#1) 2024 [...] enamel (incipient) Caries from Last 3 Months [facility] D[facility]
== END 2025-03-02 13:35 | disposition home or self-care (01) ==
PROVIDERS: PCP Internal Medicine; Visit Provider Physician Assistant
DX: M25.552 Pain in left hip (principal); M79.605 Pain in left leg; K12.0 Recurrent oral aphthae

== ENCOUNTER 2025-03-02 12:17 | Outpatient (REF) | payer MEDICARE, SELFPAY ==
--- NOTE | ~2025-03-02 | XR_ITS ---
EXAMINATION: XR HIP 1 VIEW LEFT WITH PELVIS HISTORY: M25.552 - Pain in left hip COMPARISON: Comparison is made with the prior examination of the pelvis dated 10/07/2024. FINDINGS: A single AP view of the pelvis and two views of the left hip are submitted. The patient is status post right total hip arthroplasty. There is abnormal curvilinear sclerosis involving the weightbearing portion of the left femoral head with mild articular collapse. Findings are consistent with avascular necrosis. There is mild narrowing of the joint space. The soft tissues are unremarkable. 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 Electronically signed by: Basilio Romero MD 03/02/2025 02:10 PM EDT
--- OUTSIDE RECORDS SUMMARY | 2025-03-02 13:26 | XMS_ITS | Clinical Summary ---
Author Organization [facility] Address [address] [place] [address] Care Team Providers Care Nutrition Professor Name Role Phone Unavailable Primary Care [...] daily apply a thin ribbon on toothbrush. [place] thoroughly once daily for two minutes, preferably [...] Date Intracranial aneurysm ([facility]) 05/03/2024 Seizure ([facility]) 05/03/2024 Bursitis of left knee 06/20/2022 Chronic pain 03/26/2022 Encounters Date Type Department Care Team Description 02/08/2025 1:00 PM EDT Office Visit [facility] [address] [place] [address] Monica Cummings DDS Caries (Primary Dx) 12/16/2024 1:00 PM EST Office Visit [facility] Dental [address] [place] [address] Jeaneth Chavez Caries of enamel [...] EDT Interim Notes [facility]9 [place] [phone] 04/06/2025 2:20 PM EDT Office Visit [facility] Dental [address] [place] [phone] Monica Cummings DDS [address] [place] [address] 04/06/2025 3:20 PM EDT Interim Notes [facility] [address] [place] [phone] 06/16/2025 1:40 PM EDT [facility] [address] [place] [phone] Jeaneth Chavez [address] [place] [address] Health Maintenance Due Date Last Done Comments [...] Aortic Aneurysm Screening 2023 Falls Prevention 2023 [id number] ( - season) 2024 Imm-Influenza (#1) 2024 [...] Caries from Last 3 Months [facility] DENTAL
--- OUTSIDE RECORDS SUMMARY | 2025-03-02 13:26 | XMS_ITS | Clinical Summary ---
Author Organization [employer] Address [address] [facility] 7t [place] [address] Care Team Providers Care Header Machine Operator Name Role Phone Unavailable Primary Care [...] - HSN FULL ([place]) [place] [phone]
--- OUTSIDE RECORDS SUMMARY | 2025-03-02 13:26 | XMS_ITS | Encounter Summary ---
Author Organization [facility] Address [address] [place] [address] Care Team Providers Care Universal Grinder Tool Name Role Phone Unavailable Primary Care Provider Unavailabl e Encounter Details Date Type Department Care Team (Late st Contact Info) Description 03/28/2022 Dental Interim Note [facility] Dental [address] [place] [address] Anneliese Moreno, DDS [address] [place] [address] Social History Tobacco Use Types Packs/Day Years [...] Description 04/06/2025 1:50 PM EDT Interim Notes [facility] Unit [address] [place] [phone] 04/06/2025 2:20 PM EDT Office Visit [facility] Dental [address] [place] [phone] Monica Cummings, LUZ MARINA [address] [place] [address] 04/06/2025 3:20 PM EDT Interim Notes [facility] Unit [address] [place] [phone] 06/16/2025 1:40 PM EDT Office Visit [facility] Dental [facility]9 [place] [phone] Jeaneth Chavez [address] [place] [address] documented as of this encounter Visit Diagnoses Not on filedocumented in this encounter
== END 2025-03-02 12:18 | disposition home or self-care (01) ==
LOC: HO.HMGCX 12:17
PROVIDERS: PCP Internal Medicine; Visit Provider Physician Assistant
DX: M25.552 Pain in left hip (principal)
CPT/HCPCS: 73502; 99212

== ENCOUNTER → 2025-03-02 13:26 | Outpatient (BNV) | payer MEDICARE, SELFPAY | PROVIDERS: PCP Internal Medicine; Visit Provider Radiology Diagnostic Radiology | DX: M87.052 Idiopathic aseptic necrosis of left femur (principal) | CPT/HCPCS: 73502 ==

== ENCOUNTER 2025-03-03 06:19 | Inpatient (IN) | payer MEDICARE, SELFPAY ==
[2025-03-03] VITALS (17 sets, daily range): BP systolic 109–163; BP diastolic 59–88; PULSE 95–109; RESP 16–26; TEMP 36.4–37.2; O2SAT 90–98; BMI 30.3; BMI 31.0
--- NOTE | ~2025-03-03 | CT_ITS ---
EXAMINATION: CT HEAD WITHOUT IV CONTRAST HISTORY: Headache, r/o hemorrhage. TECHNIQUE: Unenhanced helical CT of the head was performed per standard departmental protocol. Coronal and sagittal reformats of the head were also evaluated. One or more of the following techniques was used for dose reduction: Automated exposure control, adjustment of the mA and/or kV according to patient size, use of iterative reconstruction technique. DLP: 733 mGy-cm COMPARISON: There are no prior studies for comparison. FINDINGS: BRAIN: An aneurysm clip is noted causing streak artifact. There is mild prominence of the ventricular system and cortical sulci, consistent with atrophy. Scattered periventricular and subcortical white matter hypodensities are noted which are nonspecific, but often seen in the setting of small vessel ischemic disease. There is no mass effect or midline shift. No intra- or extra-axial fluid collections are identified. SINUSES: There is a polyp versus mucous retention cyst in the right maxillary sinus. There is mucosal thickening in the left maxillary sinus. The mastoid air cells and middle ear cavities are well pneumatized. ORBITS: The visualized orbits are unremarkable. BONES/SOFT TISSUES: The extracranial soft tissues are unremarkable. The calvarium is intact. No suspicious lytic or sclerotic lesions. CT/CT head/brain wo IV con IMPRESSION: No evidence of intracranial hemorrhage. Electronically signed by: Basilio Romero MD 03/03/2025 10:47 AM EDT
--- NOTE | ~2025-03-03 | XR_ITS ---
CLINICAL HISTORY: SOB 1 view chest x-ray Comparison: 01/27/2025 Findings: Portions of the exam are obscured by overlying material. There are no new areas of airspace or interstitial consolidation. There is bilateral scarring with elevated left hemidiaphragm Normal size heart. No acute fracture. IMPRESSION: 1. No acute findings. This document has been electronically signed by: Gualberto Cantrell MD on 03/03/2025 07:05:01
--- NOTE | 2025-03-03 06:24 | ECG_ITS ---
Test Reason : SOB Blood Pressure : */* mmHG Vent. Rate : 97 BPM Atrial Rate : 97 BPM P-R Int : 166 ms QRS Dur : 82 ms QT Int : 356 ms P-R-T Axes : 64 -2 41 degrees QTcB Int : 452 ms Sinus rhythm with frequent Premature ventricular complexes Nonspecific T wave abnormality Abnormal ECG When compared with ECG of 27-Jan-2025 11:39, Premature ventricular complexes are now Present Nonspecific T wave abnormality, worse in Inferior leads Referred By: Kaley Pandey Electronically Signed By: SHREE AMADOR MD
[2025-03-03] MEDS: Albuterol Sulfate 2.5 MG, Albuterol Sulfate (0.083%) 2.5 MG 5 MG INHALE (06:39)
[2025-03-03] MEDS: Magnesium Sulfate/H2O 2 GM/50 ML PIGGYBACK IV (06:49)
[2025-03-03 06:50] LABS: MANUAL DIFF FLAG NO
[2025-03-03 06:51] LABS: Basophils Percent Auto 0.4 % (0-2); Eosinophils Absolute Auto 0.1 X10*3/uL (0.0-0.4); Eosinophils Percent Auto 1.4 % (0-4); Hematocrit 36.7 % (42.0-52.0); Hemoglobin 13.4 g/dl (14.0-18.0); Imm Gran Abs Auto 0.03 X10*3/uL (0.00-0.03); Imm Gran Pct Auto 0.3 % (0.0-0.4); Lymphocytes Absolute Auto 1.3 X10*3/uL (1.2-4.9); Lymphocytes Percent Auto 12.8 % (20-40); Mean Corpuscular HGB Conc 36.5 g/dl (31.0-36.0); Mean Corpuscular Hemoglobin 33.9 pg (27.0-33.0); Mean Corpuscular Volume 92.9 fL (80.0-98.0); Mean Platelet Volume 9.2 fL (9.4-12.4); Monocytes Absolute Auto 1.3 X10*3/uL (0.1-1.2); Monocytes Percent Auto 12.2 % (2-11); Neutrophils Absolute Auto 7.5 x10*3/uL (2.0-8.3); Neutrophils Percent Auto 72.9 % (45-73); Platelet Count 192 X10*3/uL (160-400); Red Blood Count 3.95 X10*6/uL (4.60-5.80); Red Cell Distribution Width 14.6 % (11.0-16.0); White Blood Count 10.3 X10*3/uL (4.8-10.8)
--- OUTSIDE RECORDS SUMMARY | 2025-03-03 07:15 | XMS_ITS | Encounter Summary ---
Author Organization [facility] Address [address] [place] [address] Care Team Providers Care Oil Painter Name Role Phone Unavailable Primary Care Provider Unavailabl e Encounter Details Date Type Department Care Team (Late st Contact Info) Description 03/28/2022 Dental Interim Note [facility] Dental [address] [place] [address] Anneliese Moreno, DDS [address] [place] [address] Social History Tobacco Use Types Packs/Day Years [...] Description 04/06/2025 1:50 PM EDT Interim Notes [facility] Unit [address] [place] [phone] 04/06/2025 2:20 PM EDT Office Visit [facility] Dental [address] [place] [phone] Monica Cummings, LUZ MARINA [address] [place] [address] 04/06/2025 3:20 PM EDT Interim Notes [facility] [address] [place] [phone] 06/16/2025 1:40 PM EDT Office Visit [facility] Dental [facility]9 [place] [phone] Jeaneth Chavez [address] [place] [address] documented as of this encounter Visit Diagnoses Not on filedocumented in this encounter
--- OUTSIDE RECORDS SUMMARY | 2025-03-03 07:15 | XMS_ITS | Clinical Summary ---
Author Organization [facility] Address [address] [place] [address] Care Team Providers Care Culinary Assistant Name Role Phone Unavailable Primary Care [...] daily apply a thin ribbon on toothbrush. [place] thoroughly once daily for two minutes, preferably [...] Problem Noted Date Diagnosed Date Intracranial aneurysm ([facility]) 05/03/2024 Seizure ([facility]) 05/03/2024 Bursitis of left knee 06/20/2022 Chronic pain 03/26/2022 Encounters Date Type Department Care Team Description 02/08/2025 1:00 PM EDT Office Visit [facility] [address] [place] [phone] Monica Cummings DDS Caries (Primary Dx) 12/16/2024 1:00 PM EST Office [facility] Dental [address] [place] [phone] Jeaneth Chavez Caries of enamel [...] EDT Interim Notes [facility]9 [place] [phone] 04/06/2025 2:20 PM EDT Office [facility] Dental [address] [place] [phone] Monica Cummings DDS [address] [place] [address] 04/06/2025 3:20 PM EDT Interim Notes [facility] [address] [place] [phone] 06/16/2025 1:40 PM EDT [facility] [address] [place] [phone] Jeaneth Chavez [address] [place] [address] Health Maintenance Due Date Last Done Comments [...] Aortic Aneurysm Screening 2023 Falls Prevention 2023 [id number] ( - season) 2024 Imm-Influenza (#1) 2024 [...] enamel (incipient) Caries from Last 3 Months [facility] DENTAL
[2025-03-03 07:17] LABS: Alanine Aminotransferase 17 U/L (0-40); Albumin Level 3.8 g/dL (3.5-5.0); Alkaline Phosphatase 113 U/L (39-117); Anion Gap 15 (12-20); Aspartate Amino Transferase 15 U/L (5-37); Bilirubin Direct 0.2 mg/dL (0.0-0.5); Bilirubin Total 0.5 mg/dL (0.0-1.0); Blood Urea Nitrogen 8 mg/dL (9-16); Calcium 8.7 mg/dL (8.4-10.2); Carbon Dioxide 20 mmol/L (22-29); Chloride 99 mmol/L (96-108); Estimated Glomerular Filt Rate > 60; Glucose Random 110 mg/dL (60-115); Lipase 15 U/L (8-78); Potassium 4.1 mmol/L (3.3-5.1); Sodium 130 mmol/L (135-145); Total Protein 6.3 g/dL (6.5-8.0)
--- NOTE | 2025-03-03 07:17 | ED_ITS ---
HPI - SOB/Dyspnea General Chief Complaint: Dyspnea Stated Complaint: SOB hx COPD, Sat was 80 in CPAP now 90, crackles Time Seen by Provider: 03/03/25 07:12 Source: patient Mode of arrival: EMS History of Present Illness HPI Narrative: This is 64 years old male with a history of COPD, presented to the emergency department via ambulance in respiratory distress. He states that he has been more short of breath for the last 3 days, denies any fever any vomiting any chest pain he is complaining of throat pain he does have history of chronic irritation of the throat. MD elicited complaint: shortness of breath and cough Pertinent past history: COPD Onset (ago): day(s) (3) Timing: constant Severity: severe Exacerbating factors: nothing and warm air Known history of: COPD Associated symptoms: denies other symptoms Related Data Home Medications ?Medication ?Instructions ?Recorded ?Confirmed miconazole nitrate 2 % topical 1 appl topical BID PRN Rash 11/11/23 01/11/25 powder (Zeasorb AF) apixaban 2.5 mg tablet (Eliquis) 2.5 mg PO BID 09/02/24 01/11/25 Previous Rx's ?Medication ?Instructions ?Recorded shower chair #1 ea 04/25/21 WALKER #1 ea 02/14/23 acetaminophen 325 mg tablet 650 mg (2 x 325 mg) PO Q6H PRN 12/03/23 Pain, Mild (Pain Scale 1-3) 30 days #240 tabs fluticasone propionate 50 2 spray intranasal DAILY #3 ea 05/12/24 mcg/actuation nasal spray,suspension atorvastatin 80 mg tablet 80 mg PO BEDTIME #90 tabs 09/03/24 umeclidinium 62.5 mcg/actuation 1 inh inhalation DAILY severe copd 10/28/24 blister powder for inhalation 30 days #30 ea (Incruse Ellipta) gabapentin 300 mg capsule 600 mg (2 x 300 mg) PO TID 90 days 12/08/24 #540 caps aspirin 81 mg tablet,delayed 81 mg PO DAILY #90 tabs 12/24/24 release bupropion HCl 150 mg tablet,12 hr 150 mg PO BID #180 tabs 01/11/25 sustained-release (Wellbutrin SR) cyanocobalamin (vitamin B-12) 1,000 mcg PO DAILY #90 caps 01/19/25 1,000 mcg capsule omeprazole 20 mg capsule,delayed 20 mg PO BID@0630,1630 #180 caps 01/19/25 release dutasteride 0.5 mg capsule 0.5 mg PO DAILY 90 days #90 caps 02/15/25 tamsulosin 0.4 mg capsule 0.4 mg PO DAILY 90 days #90 caps 02/15/25 albuterol sulfate 2.5 mg/3 mL 2.5 mg (3 mL) inhalation QID PRN 02/28/25 (0.083 %) solution for nebulization shortness of breath or wheezing 30 days #180 mL albuterol sulfate 90 mcg/actuation 2 puff inhalation Q4H PRN 02/28/25 aerosol inhaler shortness of breath or wheezing 30 days #8.5 grams alprazolam 0.25 mg tablet 0.25 mg PO BEDTIME PRN anxiety #20 02/28/25 tabs tramadol 50 mg tablet 50 mg PO BID PRN pain 30 days #30 03/02/25 tabs Allergies Allergy/AdvReac Type Severity Reaction Status Date / Time divalproex sodium [Depakote] Allergy Unknown Unknown Verified 03/03/25 06:29 rosuvastatin Allergy Unknown SOB Verified 03/03/25 06:29 finasteride Allergy Intermediate Hives Uncoded 02/15/25 12:17 Review of Systems 2 Constitutional: Constitutional: Reports no additional constitutional complaints ENT: Reports system reviewed and no additional complaints, except as documented Gastrointestinal: Gastrointestinal: Reports no additional gastrointestinal complaints [facility] Past Medical History Attestation statement: The following information was validated with the patient. [facility] Narrative: COPD, chronic neck pain, DJD Medical History COPD with acute exacerbation Somnolence, daytime SOB (shortness of breath) Atelectasis of left lung Anxiety Smoker Pharyngitis COPD (chronic obstructive pulmonary disease) Osteoarthritis of right hip Arthritis Abdominal hernia Numbness Habitual snoring COPD (chronic obstructive pulmonary disease) Tinea cruris Pes anserinus bursitis of left knee Upper respiratory tract infection Rib fractures Annual physical exam Contusion of chest Back strain Osteoarthritis of right hip Right hip pain Right middle lobe pulmonary infiltrate Sinus congestion Overweight (BMI 25.0-29.9) Urgency of micturition Carpal tunnel syndrome Femoral fracture Pulmonary nodule BPH (benign prostatic hyperplasia) Seizure disorder Insomnia Vitamin D deficiency Impaired glucose tolerance Hypercholesterolemia GERD (gastroesophageal reflux disease) Polysubstance abuse Left subclavian artery occlusion Brain aneurysm CVA (cerebral vascular accident) Vocal cord polyp Vitamin B12 deficiency Surgical History History of nasal surgery H/O colonoscopy Stenosis of subclavian bypass History of surgery History of orthopedic surgery History of knee replacement procedure of right knee Family History Family History Father CAD (coronary artery disease) Kidney malignancy Mother Myocardial infarction Brother Prostate cancer Social History Social History Household Members: Other Household Members Other:: roomate Housing: Other Housing Other:: trailer Are you a primary care associate to a significant other at home: No Do you presently have visiting nurse or other home services: No Unable to assess alcohol history related to: Unknown Alcohol intake: current Alcohol intake frequency: 3 or more drinks per day Alcohol type: beer Comment: 4 drinks last night Patient Tobacco Use Status: Former Tobacco user Tobacco use type: Cigarette Cigarette Packs Per Day: 5 Cigarettes Per Day: 0.5 Smoked in Last 30 Days: Yes e-Cigarette/Vaping Use: Never Used Second Hand Smoke Exposure: Yes Use of substances other than those prescribed or required for medical reasons: No Substance Use Type: Marijuana Advance Directives: No Advance Directives Information Provided: Yes service: No Current occupational status: unemployed Cognitive needs: Yes (Cane) Hearing needs: No Vision needs: Yes Physical Exam 2 Vital Signs: Vital Signs: Last Vital Signs Temp 98.5 F 03/03/25 06:46 Pulse 108 H 03/03/25 08:35 Resp 25 H 03/03/25 08:35 BP 109/77 03/03/25 08:35 Pulse Ox 91 L 03/03/25 08:35 O2 Del Method Nasal Cannula 03/03/25 08:35 O2 Flow Rate 2.5 03/03/25 08:35 Oxygen Flow Rate 7 03/03/25 06:26 BMI result Body Mass Index 30.3 On exam is in moderate distress Const: General: alert Nutritional Appearance: well nourished O rientation/consciousness: patient oriented x3 HEENT: Head: Yes normal to inspection Ears: hearing grossly normal bilaterally Mouth: Normal oral and palatal mucosa present Neck: Neck: Yes normal visual inspection Chest: Chest palpation & inspection: normal inspection of the chest Resp: Auscultation: rhonchi and wheezes Cardio: Jugular venous distension: no JVD Rate: regular rate Rhythm: r egular rhythm GI: Inspection: Yes normal to inspection Palpation (GI): Soft to palpation Skin: General skin exam: no rashes or lesions noted and elasticity normal L esions: no lesions Rashes: no rashes Neuro: General: patient oriented x3 Course Reevaluation(s) Reevaluation #1: Doing better at this time anticipate admission discussed with the hospitalist Time: 08:40 Medications Administered Discontinued Medications Generic Name Dose Route Start Last Admin Trade Name Freq PRN Reason Stop Dose Admin Albuterol Sulfate 2.5 mg/ 5 mg 03/03/25 06:30 03/03/25 06:39 Albuterol Sulfate 2.5 mg INHALE 03/03/25 06:31 5 mg ONCE ONE Administration Albuterol Sulfate 7.5 mg/ 0 mg 03/03/25 07:38 03/03/25 07:43 Albuterol/Ipratropium 3 ml INHALE 03/03/25 07:39 10 each ONCE ONE Administration Cyclobenzaprine HCl 10 mg 03/03/25 08:24 03/03/25 08:34 Cyclobenzaprine Hcl 10 Mg Tablet PO 03/03/25 08:25 10 mg ONCE ONE Administration Fentanyl 25 mcg 03/03/25 07:16 03/03/25 07:21 Fentanyl Citrate/Pf 100 Mcg/2 Ml Vial IVPUSH 03/03/25 07:17 25 mcg ONCE ONE Administration Protocol Magnesium Sulfate 2 gm in 50 mls @ 25 mls/hr 03/03/25 06:24 03/03/25 08:47 Magnesium Sulfate/H2o IV 03/03/25 08:23 Infused ONCE ONE Infusion Methylprednisolone Sodium Succinate 125 mg 03/03/25 06:24 03/03/25 06:49 Methylprednisolone Sod Succ 125 Mg Vial IVPUSH 03/03/25 06:25 125 mg ONCE ONE Administration Medical Decision Making Medical Decision Making MDM Narrative: Patient is here with COPD exacerbation we will obtain chest x-ray administer bronchodilator Solu-Medrol Differential Diagnosis Differential Diagnoses: The differential diagnosis associated with the presentation includes COPD exacerbation/bronchitis/pneumothorax Admission/Observation Consideration of admission/observation: Escalation of care including admission/observation considered Lab Data MDM Lab Attestation statement: I reviewed the patient's lab results. 03/03/25 06:43 03/03/25 06:42 Labs: Lab Results 03/03/25 03/03/25 03/03/25 Range/Units 06:41 06:42 06:43 WBC 10.3 (4.8-10.8) X10*3/uL RBC 3.95 L (4.60-5.80) X10*6/uL Hgb 13.4 L (14.0-18.0) g/dl Hct 36.7 L (42.0-52.0) % MCV 92.9 (80.0-98.0) fL MCH 33.9 H (27.0-33.0) pg MCHC 36.5 H (31.0-36.0) g/dl RDW 14.6 (11.0-16.0) % Plt Count 192 (160-400) X10*3/uL MPV 9.2 L (9.4-12.4) fL Immature Gran % (Auto) 0.3 (0.0-0.4) % Neut % (Auto) 72.9 (45-73) % Lymph % (Auto) 12.8 L (20-40) % [place] % (Auto) 12.2 H (2-11) % Eos % (Auto) 1.4 (0-4) % Baso % (Auto) 0.4 (0-2) % Lymph # (Auto) 1.3 (1.2-4.9) X10*3/uL [place] # (Auto) 1.3 H (0.1-1.2) X10*3/uL Eos # (Auto) 0.1 (0.0-0.4) X10*3/uL Baso # (Auto) 0.0 (0.0-0.2) X10*3/uL Abs Immat Gran (auto) 0.03 (0.00-0.03) X10*3/uL Absolute Neuts (auto) 7.5 (2.0-8.3) x10*3/uL Absolute Nucleated RBC 0.000 (0.0-0.012) X10*3/uL Nucleated RBC % (auto) 0.0 (0.0-0.2) /100WBC VBG pH (7.32-7.43) VBG pCO2 mmHg VBG pO2 mmHg VBG HCO3 (22-26) mmol/L VBG O2 Saturation % VBG Base Excess mmol/L Sodium 130 L (135-145) mmol/L Potassium 4.1 (3.3-5.1) mmol/L Chloride 99 (96-108) mmol/L Carbon Dioxide 20 L (22-29) mmol/L Anion Gap 15 (12-20) BUN 8 L (9-16) mg/dL Creatinine 0.65 (0.5-1.4) mg/dL Estim Creat Clear Calc 122.0 Estimated GFR > 60 Random Glucose 110 (60-115) mg/dL Lactic Acid 1.9 (0.5-2.0) mmol/L Calcium 8.7 (8.4-10.2) mg/dL Total Bilirubin 0.5 (0.0-1.0) mg/dL Direct Bilirubin 0.2 (0.0-0.5) mg/dL AST 15 (5-37) U/L ALT 17 (0-40) U/L Alkaline Phosphatase 113 (39-117) U/L Troponin I High Sens < 2.7 (<3.5-35.0) ng/L B-Natriuretic Peptide 98 (<100) pg/mL Total Protein 6.3 L (6.5-8.0) g/dL Albumin 3.8 (3.5-5.0) g/dL Lipase 15 (8-78) U/L Influenza Type A (PCR) NEGATIVE (Negative) Influenza Type B (PCR) NEGATIVE (Negative) RSV RNA Qual (PCR) NEGATIVE (Negative) SARS-CoV-2 RNA (RT-PCR) NEGATIVE (Negative) 03/03/25 Range/Units 07:36 WBC (4.8-10.8) X10*3/uL RBC (4.60-5.80) X10*6/uL Hgb (14.0-18.0) g/dl Hct (42.0-52.0) % MCV (80.0-98.0) fL MCH (27.0-33.0) pg MCHC (31.0-36.0) g/dl RDW (11.0-16.0) % Plt Count (160-400) X10*3/uL MPV (9.4-12.4) fL Immature Gran % (Auto) (0.0-0.4) % Neut % (Auto) (45-73) % Lymph % (Auto) (20-40) % [place] % (Auto) (2-11) % Eos % (Auto) (0-4) % Baso % (Auto) (0-2) % Lymph # (Auto) (1.2-4.9) X10*3/uL [place] # (Auto) (0.1-1.2) X10*3/uL Eos # (Auto) (0.0-0.4) X10*3/uL Baso # (Auto) (0.0-0.2) X10*3/uL Abs Immat Gran (auto) (0.00-0.03) X10*3/uL Absolute Neuts (auto) (2.0-8.3) x10*3/uL Absolute Nucleated RBC (0.0-0.012) X10*3/uL Nucleated RBC % (auto) (0.0-0.2) /100WBC VBG pH 7.39 (7.32-7.43) VBG pCO2 33 mmHg VBG pO2 87 mmHg VBG HCO3 20 L (22-26) mmol/L VBG O2 Saturation 97.0 % VBG Base Excess -3.7 mmol/L Sodium (135-145) mmol/L Potassium (3.3-5.1) mmol/L Chloride (96-108) mmol/L Carbon Dioxide (22-29) mmol/L Anion Gap (12-20) BUN (9-16) mg/dL Creatinine (0.5-1.4) mg/dL Estim Creat Clear Calc Estimated GFR Random Glucose (60-115) mg/dL Lactic Acid (0.5-2.0) mmol/L Calcium (8.4-10.2) mg/dL Total Bilirubin (0.0-1.0) mg/dL Direct Bilirubin (0.0-0.5) mg/dL AST (5-37) U/L ALT (0-40) U/L Alkaline Phosphatase (39-117) U/L Troponin I High Sens (<3.5-35.0) ng/L B-Natriuretic Peptide (<100) pg/mL Total Protein (6.5-8.0) g/dL Albumin (3.5-5.0) g/dL Lipase (8-78) U/L Influenza Type A (PCR) (Negative) Influenza Type B (PCR) (Negative) RSV RNA Qual (PCR) (Negative) SARS-CoV-2 RNA (RT-PCR) (Negative) Independent Interpretation I performed an independent interpretation of an: Plain X-Ray Interpretation: Chest x-ray was reviewed interpreted by me as elevated left hemidiaphragm with scarring Radiology Impression Discussion of test interpretation with radiology: I have reviewed the radiologist's reading. External Record Review External record reviewed: Inpatient record Chronic Conditions Patient?s care impacted by: Other (copd) Critical Care Time Critical Care Time Critical Care Time: Yes Total Critical Care Time: 60 Attestation: Multiple nebs [id number] Discharge Plan Discharge Clinical Impression: Acute exacerbation of chronic obstructive pulmonary disease Patient Disposition: Admitted As Inpatient
[2025-03-03] MEDS: fentaNYL citrate/PF 100 MCG/2 ML VIAL 25 MCG IVPUSH (07:21)
[2025-03-03 07:24] LABS: Troponin-I High Sensitivity < 2.7 ng/L (<3.5-35.0)
[2025-03-03 07:25] LABS: Lactic Acid 1.9 mmol/L (0.5-2.0)
[2025-03-03 07:28] LABS: Influenza A PCR NEGATIVE (Negative); Influenza B PCR NEGATIVE (Negative); Resp Syncy Virus RNA Qual PCR NEGATIVE (Negative); SARS COV2 PCR INHOUSE NEGATIVE (Negative)
[2025-03-03 07:31] LABS: B Type Natriuretic Peptide 98 pg/mL (<100)
[2025-03-03 07:43] LABS: VBG Base Excess -3.7 mmol/L; VBG HCO3 20 mmol/L (22-26); VBG pCO2 33 mmHg; VBG pH 7.39 (7.32-7.43); VBG pO2 87 mmHg
[2025-03-03 07:43] LABS: Venous Blood Gas Refer to POC result
[2025-03-03] MEDS: Albuterol Sulfate 7.5 MG, Albuterol/Iprat 2.5/0.5MG 3 ML 3 ML INHALE (07:43)
[2025-03-03] MEDS: Cyclobenzaprine HCl 10 MG TABLET PO (08:34)
--- NOTE | 2025-03-03 08:36 | P.HPHOSP_ITS ---
History of Present Illness Date of Service: 03/03/25 Attending physician on admission: Wayne Guzman Chief Complaint: SOB Pt is a 64-year-old male with a PMH significant for COPD not on home O2, hx of cerebral aneurysm status percutaneous endovascular procedure, CVA, left subclavian artery occlusion s/p bypass on Eliquis, HLD, BPH, and general NSTEMI anxiety disorder? who presents to the ED with two primary complaints: worsening SOB and head/neck pain since this morning. Reports has been having difficulty breathing and SOB for the past few months, worsening in the past few weeks. Pt a long-time smoker reports quit smoking around 3 weeks ago. Has been using home inhalers and nebulizers to little effect. Occasional, chronic nonproductive cough around baseline. This morning SOB appeared worse than prior. EMS found pt satting in the 80s and appeared in respiratory distress, and pt was placed on CPAP at 94%. However, pt reports primarily called EMS due to sudden onset neck spasms/pain and headaches upon waking this morning. pt reports has intermittent neck spasms that radiate up his neck. Complains of pain in the back of his head and radiates to the front. Reports of some blurriness in his vision when pain is intense, but no prolonged vision changes. Has been unable to move his neck from side to side or up and down. Denies similar symptoms in the past. Pt does note that he often becomes tremulous after albuterol and nebulizer use. Pt reports for the past 6 months has also been experiencing left hip pain and reduced mobility secondary to pain. Has become much more sedentary. Has a hx of of right CHUYITA 12/02/[address] Mobley. Presented to a walk-in clinic yesterday where he received left hip x-ray which showed avascular necrosis of left femoral head with mild articular collapse. In the ED pt was tachycardic up to 108, tachypneic up to 26, and initially found desatting to the 80s on RA, currently 89-91% on 4L NC. Labs were significant for mild normocytic anemia of 13.4/36.7, and sodium 130. No leukocytosis. Renal function WNL. Hepatic function WNL. Troponin negative. BNP WNL. VBG reassuring with pH 7.39, pCO2 33, and bicarb mildly low at 20. Tested negative for flu, COVID, RSV. CXR showed no acute findings. EKG demonstrated sinus rhythm with frequent PVCs. Pt was treated in the ED with DuoNebs, Solu-Medrol, Mag sulfate, cyclobenzaprine, and fentanyl. Pt is admitted to the hospital for treatment and further evaluation of acute hypoxic respiratory failure in the setting of COPD exacerbation. Review of Systems 2 Review of Systems: Negative except for that which is stated in the HPI. [facility] Medical History COPD with acute exacerbation Somnolence, daytime SOB (shortness of breath) Atelectasis of left lung Anxiety Smoker Pharyngitis COPD (chronic obstructive pulmonary disease) Osteoarthritis of right hip Arthritis Abdominal hernia Numbness Habitual snoring COPD (chronic obstructive pulmonary disease) Tinea cruris Pes anserinus bursitis of left knee Upper respiratory tract infection Rib fractures Annual physical exam Contusion of chest Back strain Osteoarthritis of right hip Right hip pain Right middle lobe pulmonary infiltrate Sinus congestion Overweight (BMI 25.0-29.9) Urgency of micturition Carpal tunnel syndrome Femoral fracture Pulmonary nodule BPH (benign prostatic hyperplasia) Seizure disorder Insomnia Vitamin D deficiency Impaired glucose tolerance Hypercholesterolemia GERD (gastroesophageal reflux disease) Polysubstance abuse Left subclavian artery occlusion Brain aneurysm CVA (cerebral vascular accident) Vocal cord polyp Vitamin B12 deficiency Family History Father CAD (coronary artery disease) Kidney malignancy Mother Myocardial infarction Brother Prostate cancer Surgical History History of nasal surgery H/O colonoscopy Stenosis of subclavian bypass History of surgery History of orthopedic surgery History of knee replacement procedure of right knee Social History Household Members: Other Household Members Other:: roomate Housing: Other Housing Other:: mobile home Are you a primary rehab care assistant to a significant other at home: No Do you presently have visiting nurse or other home services: No 75 years or older and lives alone: No Unable to assess alcohol history related to: Unknown Alcohol intake: current Alcohol intake frequency: 3 or more drinks per day Alcohol type: beer Comment: 4 drinks last night Patient Tobacco Use Status: Former Tobacco user Tobacco use type: Cigarette Cigarette Packs Per Day: 5 Cigarettes Per Day: 0.25 Years Smoked: 55 e-Cigarette/Vaping Use: Never Used Second Hand Smoke Exposure: No Substance Use Type: Marijuana service: No Current occupational status: unemployed Cognitive needs: Yes (Cane) Hearing needs: No Vision needs: Yes Meds Allergies Allergy/AdvReac Type Severity Reaction Status Date / Time divalproex sodium [Depakote] Allergy Unknown Unknown Verified 03/03/25 06:29 rosuvastatin Allergy Unknown SOB Verified 03/03/25 06:29 finasteride Allergy Intermediate Hives Uncoded 02/15/25 12:17 Home Medications ?Medication ?Instructions ?Recorded ?Confirmed ?Last Taken ?Type apixaban 2.5 mg tablet (Eliquis) 2.5 mg PO BID 09/02/24 03/03/25 03/02/25 History ipratropium 0.5 mg-albuterol 3 mg 3 ml inhalation Q4H PRN Shortness 03/03/25 03/03/25 Unknown History (2.5 mg base)/3 mL nebulization Of Breath Or Wheezing soln Physical Exam 2 Vital Signs and Narrative: Vital Signs: Last Vital Signs Temp 98.5 F 03/03/25 06:46 Pulse 108 H 03/03/25 08:35 Resp 25 H 03/03/25 08:35 BP 109/77 03/03/25 08:35 Pulse Ox 91 L 03/03/25 08:35 O2 Del Method Nasal Cannula 03/03/25 08:35 O2 Flow Rate 2.5 03/03/25 08:35 Oxygen Flow Rate 7 03/03/25 06:26 BMI result Body Mass Index 30.3 General: AOx3, no acute distress Resp: Diffuse bilateral wheezing Neck: nontender to palpation. Pt with reduced ROM of neck secondary to pain. CVS: S1, S2, regular rate, tachy GI: +BS, NT, no distention Skin: Warm, dry Neuro: Cranial nerves II-XII grossly intact bilaterally. Motor grossly intact bilaterally though with lower extremity weakness. No focal deficits noted. Pt overall mildly tremulous. Extremities: No edema Psych: Appropriate affect Results Labs 03/03/25 06:43 03/04/25 06:32 Labs: Laboratory Results - last 24 hr 03/03/25 03/03/25 03/03/25 06:41 06:42 06:43 MCV 92.9 MCH 33.9 H MCHC 36.5 H RDW 14.6 Plt Count 192 MPV 9.2 L Immature Gran % (Auto) 0.3 Neut % (Auto) 72.9 Lymph % (Auto) 12.8 L [place] % (Auto) 12.2 H Eos % (Auto) 1.4 Baso % (Auto) 0.4 Lymph # (Auto) 1.3 [place] # (Auto) 1.3 H Eos # (Auto) 0.1 Baso # (Auto) 0.0 Abs Immat Gran (auto) 0.03 Absolute Neuts (auto) 7.5 Absolute Nucleated RBC 0.000 Nucleated RBC % (auto) 0.0 VBG pH VBG pCO2 VBG pO2 VBG HCO3 VBG O2 Saturation VBG Base Excess Anion Gap 15 Estim Creat Clear Calc 122.0 Estimated GFR > 60 Random Glucose 110 Lactic Acid 1.9 Calcium 8.7 Total Bilirubin 0.5 Direct Bilirubin 0.2 AST 15 ALT 17 Alkaline Phosphatase 113 B-Natriuretic Peptide 98 Total Protein 6.3 L Albumin 3.8 Lipase 15 Influenza Type A (PCR) NEGATIVE Influenza Type B (PCR) NEGATIVE RSV RNA Qual (PCR) NEGATIVE SARS-CoV-2 RNA (RT-PCR) NEGATIVE 03/03/25 07:36 MCV MCH MCHC RDW Plt Count MPV Immature Gran % (Auto) Neut % (Auto) Lymph % (Auto) [place] % (Auto) Eos % (Auto) Baso % (Auto) Lymph # (Auto) [place] # (Auto) Eos # (Auto) Baso # (Auto) Abs Immat Gran (auto) Absolute Neuts (auto) Absolute Nucleated RBC Nucleated RBC % (auto) VBG pH 7.39 VBG pCO2 33 VBG pO2 87 VBG HCO3 20 L VBG O2 Saturation 97.0 VBG Base Excess -3.7 Anion Gap Estim Creat Clear Calc Estimated GFR Random Glucose Lactic Acid Calcium Total Bilirubin Direct Bilirubin AST ALT Alkaline Phosphatase B-Natriuretic Peptide Total Protein Albumin Lipase Influenza Type A (PCR) Influenza Type B (PCR) RSV RNA Qual (PCR) SARS-CoV-2 RNA (RT-PCR) Assessment and Plan (1) Acute exacerbation of chronic obstructive pulmonary disease: Status: Acute (2) Acute hypoxic respiratory failure: Status: Acute Plan Pt is a 64-year-old male with a PMH significant for COPD not on home O2, hx of cerebral aneurysm status percutaneous endovascular procedure, CVA, left subclavian artery occlusion s/p bypass on Eliquis, HLD, BPH, and general NSTEMI anxiety disorder? who presents to the ED with two primary complaints: worsening SOB and head/neck pain since this morning. Pt is admitted to the hospital for treatment and further evaluation of acute hypoxic respiratory failure in the setting of COPD exacerbation. Acute hypoxic respiratory failure in the setting of COPD exacerbation Pt with increased SOB in the past few weeks, worse the past few days, desatting to the 80s on RA No sepsis: Tachycardia secondary to DuoNebs; lactic acid WNL No indication of underlying pneumonia: CXR negative, procalcitonin WNL, no fever or leukocytosis, no productive cough Will treat with Solu-Medrol, Xopenex, and guaifenesin Titrate supplemental O2 >92, wean as tolerated Head and neck pain Reports severe neck spasms and posterior head pain since this morning Unclear etiology Pt with hx of cerebral aneurysm, subclavian artery occlusion, currently on Eliquis Given cyclobenzaprine and fentanyl in the ED Will treat with Fioricet, lidocaine patch, cyclobenzaprine, analgesics Check CT of head to rule out hemorrhage Hyponatremia, mild Patient's sodium 130 at time of presentation Monitor PVCs EKG showing frequent PVCs which is new compared to prior Pt received magnesium 2 g IV in the ED Monitor on telemetry Avascular necrosis of left femoral head with mild articular collapse Complaining of left hip pain x6 months Presented to walk-in clinic yesterday for imaging Hx of right CHUYITA in 2022, follows with Dr. Mobley Orthopedic consult PT evaluation Hx of left subclavian artery occlusion Continue Eliquis Hx of CVA Continue aspirin, statin BPH Continue tamsulosin GERD Continue PPI Full Code Attending:?Dr. Guzman DVT Prophylaxis: On Eliquis Pt will require a hospitalization of at least two nights for treatment of?acute hypoxic respiratory failure in the setting of COPD exacerbation, as well as intractable head and neck pain. Pt will require hospital level care for administration of IV steroids, breathing treatments, supplemental oxygen, and close monitoring of respiratory status. Quality Stroke Does the patient have a stroke diagnosis?: No VTE Prior VTE?: No VTE Risk Level:: Medical - moderate - high VTE Device Contraindication: Treatment Not Indicated VTE Drug Contraindication: N/A - Med Ordered
[2025-03-03] MEDS: Butalb/Acetamin/Caff 50/325/40 TABLET 1 TAB PO (09:27)
[2025-03-03 09:35] LABS: Procalcitonin 0.07 ng/mL
--- NOTE | 2025-03-03 09:54 | PM.EVENT ---
Event Note Date of Service: 03/03/25 Event Note: 64-year-old male admitted to the hospital for exacerbation of COPD Also experiencing significant left hip pain X-rays taken in the ED reveal moderate AVN of left hip with some collapse, no acute fracture Patient has appointment booked with Dr. Mobley on 04/07/2025 for left hip pain and limited weight-bearing Weight-bearing as tolerated No acute orthopedic intervention indicated at this time Patient should follow-up for previously scheduled appointment Time Spent With Patient Time: Total time managing care of this patient today ____ minutes.
[2025-03-03] MEDS: Lidocaine 4 % Patch ADH..PATCH 1 PATCH TRANSDERMA (10:38)
[2025-03-03] MEDS: levalbuterol HCL 1.25 MG/3 ML VIAL.NEB INHALE ×3 (11:36→19:14)
--- NOTE | 2025-03-03 11:58 | PHA.MEDREC ---
Addendum entered by Dereje Corrales [facility] 03/03/25 12:16: MED REC CHECKED BY [facility] Original Note: Pharmacy Consult ? Medication Reconciliation Pharmacy has completed the medication reconciliation. Spoke with patient and he confirmed his medications.
[2025-03-03 14:24] LABS: Appearance Urine Clear; Color Urine Yellow; Glucose Urine UA Negative (Negative); Leukocyte Esterase Urine Negative (Negative); Nitrite Urine Negative (Negative); Specific Gravity - Urine <= 1.005 (1.005-1.025); Urine Blood Negative (Negative); Urine Ketones Trace mg/dL (Negative); Urine Protein Negative (Neg-Trace)
--- NOTE | 2025-03-03 14:40 | ECG_ITS ---
Test Reason : SOB Blood Pressure : */* mmHG Vent. Rate : 103 BPM Atrial Rate : 103 BPM P-R Int : 158 ms QRS Dur : 88 ms QT Int : 334 ms P-R-T Axes : 60 4 54 degrees QTcB Int : 437 ms Sinus tachycardia with occasional Premature ventricular complexes Otherwise normal ECG When compared with ECG of 03-Mar-2025 06:27, Nonspecific T wave abnormality, improved in Inferior leads Referred By: Wayne Guzman Electronically Signed By: SHREE AMADOR MD
--- NOTE | 2025-03-03 14:47 | PC.NURSE ---
Patient c/o chest pain while in transit to [phone]. Charge nurse for Med Tele notified, Primary RN not in POD, Charge came to room with CNAs and did VS and plan EKG. Charge on M/T to notify provider. No Resp distress at this time.
[2025-03-03] MEDS: Apixaban 2.5 MG TABLET PO (15:12)
[2025-03-03] MEDS: Omeprazole 20 MG CAPSULE.DR PO (15:12)
[2025-03-03] MEDS: guaiFENesin DM 600/30 1 TAB TAB.ER.12H PO (15:12)
[2025-03-03] MEDS: Gabapentin 300 MG CAPSULE 600 MG PO ×2 (15:12→21:04)
[2025-03-03] MEDS: 0.9 % Sodium Chloride Flush 3 ML SYRINGE IVFLUSH (15:12)
[2025-03-03] MEDS: Tamsulosin HCL 0.4 MG CAPSULE PO (15:12)
[2025-03-03 15:38] LABS: Troponin-I High Sensitivity < 2.7 ng/L (<3.5-35.0)
--- NOTE | 2025-03-03 15:38 | MHC.CM.PN ---
CM met with Patient at bedside and addressed IMM with him verbally (he expressed that he was too short of breath to sign/RN just left the room); original IMM was given to Patient and a copy has been placed on the chart. Patient lives in a mobile home with a Roommate ( She's like a Daughter to me ) and he uses both a walker and a w/c to assist with mobility. PT is recommending STR but Patient has refused, stating that he needs to go home to care for his dog. Patient is agreeable to VNA referrals. CM has initiated and will follow for dc planning. PCP is Dr. Feldman and Brother/Colby is the HCP. Patient may need assist with transport at time of dc.
[2025-03-03] MEDS: ALPRAZolam 0.25 MG TABLET PO (21:04)
[2025-03-03] MEDS: Atorvastatin Calcium 80 MG TABLET PO (21:04)
[2025-03-03] MEDS: methylPREDNISolone Sod Succ 40 MG/ML VIAL IVPUSH (21:04)
[2025-03-03] MEDS: Melatonin 3 MG TABLET 6 MG PO (21:14)
[2025-03-03] MEDS: Morphine Sulfate 4 MG/ML CARTRIDGE IVPUSH (21:14)
[2025-03-03] MEDS: guaiFEN/Codeine SF 200/20/10ML 10 ML LIQUID PO (21:15)
[2025-03-04] VITALS (11 sets, daily range): BP systolic 118–170; BP diastolic 65–84; PULSE 85–100; RESP 16–18; TEMP 36.4–36.9; O2SAT 93–95
[2025-03-04] MEDS: traMADoL HCL 50 MG TABLET PO ×2 (01:19→12:57)
[2025-03-04] MEDS: Omeprazole 20 MG CAPSULE.DR PO ×2 (06:02→15:23)
[2025-03-04 07:15] LABS: Anion Gap 12 (12-20); Blood Urea Nitrogen 16 mg/dL (9-16); Carbon Dioxide 24 mmol/L (22-29); Chloride 101 mmol/L (96-108); Creatinine Clr Calc Pharmacy 119.7; Estimated Glomerular Filt Rate > 60; Glucose Random 157 mg/dL (60-115); Magnesium 2.2 mg/dL (1.6-2.6); Potassium 4.9 mmol/L (3.3-5.1); Sodium 132 mmol/L (135-145)
[2025-03-04] MEDS: levalbuterol HCL 1.25 MG/3 ML VIAL.NEB INHALE ×4 (07:37→20:01)
[2025-03-04] MEDS: buPROPion HCl XL 300 MG TAB.ER.24H PO (07:43)
[2025-03-04] MEDS: guaiFEN/Codeine SF 200/20/10ML 10 ML LIQUID PO ×3 (07:43→20:16)
[2025-03-04] MEDS: Apixaban 2.5 MG TABLET PO ×2 (07:43→20:02)
[2025-03-04] MEDS: Cyanocobalamin (Vitamin B-12) 1,000 MCG TABLET 1000 MCG PO (07:43)
[2025-03-04] MEDS: Aspirin Enteric Coated 81 MG TABLET.DR PO (07:43)
[2025-03-04] MEDS: Gabapentin 300 MG CAPSULE 600 MG PO ×3 (07:43→20:01)
[2025-03-04] MEDS: Acetaminophen 325 MG TABLET 650 MG PO (07:43)
[2025-03-04] MEDS: Tamsulosin HCL 0.4 MG CAPSULE PO (07:43)
[2025-03-04] MEDS: methylPREDNISolone Sod Succ 40 MG/ML VIAL IVPUSH ×2 (07:43→20:02)
[2025-03-04] MEDS: Morphine Sulfate 4 MG/ML CARTRIDGE IVPUSH ×3 (07:44→20:02)
[2025-03-04] MEDS: 0.9 % Sodium Chloride Flush 3 ML SYRINGE IVFLUSH ×3 (07:44→20:02)
[2025-03-04] MEDS: Lidocaine 4 % Patch ADH..PATCH 1 PATCH TRANSDERMA (07:44)
[2025-03-04] MEDS: guaiFENesin DM 600/30 1 TAB TAB.ER.12H PO (07:44)
[2025-03-04] MEDS: Fluticasone Propionate Nasal 16 GM SPRAY 2 SPRAY NOSTRIL-B (07:52)
--- NOTE | 2025-03-04 10:29 | MHC.CM.PN ---
Per ROUNDS discussion, Patient will need a home O2 Eval prior to dc. [facility] is following. CM will follow.
--- NOTE | 2025-03-04 12:36 | P.PNIM_ITS ---
Subjective Subjective Date of Service: 03/04/25 Interval History: dyspnea improved, coughing up some sputum no fever Review of Systems Review of Systems: Yes all other systems are reviewed and are negative Physical Exam 2 Vital Signs: Vital Signs: Last Vital Signs Temp 98.0 F 03/04/25 11:10 Pulse 93 03/04/25 11:10 Resp 16 03/04/25 11:10 BP 127/69 03/04/25 11:10 Pulse Ox 95 03/04/25 11:10 O2 Del Method Nasal Cannula 03/04/25 11:10 O2 Flow Rate 2 03/04/25 11:10 Oxygen Flow Rate 7 03/03/25 06:26 BMI result Body Mass Index 31.0 Gen: in no acute distress HEENT: sclera anicteric, moist mucus membranes Neck: supple Lungs: bilateral expiratory wheezing Heart: regular rate and rhythm, no murmurs Abd: soft, non-tender, non-distended Ext: no edema Skin: warm/well-perfused Neuro: alert and oriented x3, no focal findings Psych: appropriate affect Objective Data Active Medications Acetaminophen (Acetaminophen 325 Mg Tablet) 650 mg PO Q6H PRN PRN Reason: Pain, Mild 1-3,fever,headache Last Admin: 03/04/25 07:43 Dose: 650 mg Documented By: FRANCI Alprazolam (Alprazolam 0.25 Mg Tablet) 0.25 mg PO BEDTIME PRN PRN Reason: anxiety Last Admin: 03/03/25 21:04 Dose: 0.25 mg Documented By: HARLAN Apixaban (Apixaban 2.5 Mg Tablet) 2.5 mg PO BID [facility] Last Admin: 03/04/25 07:43 Dose: 2.5 mg Documented By: FRANCI Aspirin (Aspirin Enteric Coated 81 Mg Tablet.) 81 mg PO DAILY [facility] Last Admin: 03/04/25 07:43 Dose: 81 mg Documented By: FRANCI Atorvastatin Calcium (Atorvastatin Calcium 80 Mg Tablet) 80 mg PO BEDTIME [facility] Last Admin: 03/03/25 21:04 Dose: 80 mg Documented By: HARLAN Benzocaine (Throat Lozenge, Medicated Lozenge) 1 lozenge MUCOUS MEM Q2H PRN PRN Reason: Sore Throat Bupropion HCl (Bupropion Hcl Xl 300 Mg Tab.Er.24h) 300 mg PO DAILY [facility] Last Admin: 03/04/25 07:43 Dose: 300 mg Documented By: FRANCI Calcium Carbonate (Calcium Carbonate 750 Mg Tab.Chew) 750 mg PO Q4H PRN PRN Reason: Heartburn Cyanocobalamin (Cyanocobalamin (Vitamin B-12) 1,000 Mcg Tablet) 1,000 mcg PO DAILY [facility] Last Admin: 03/04/25 07:43 Dose: 1,000 mcg Documented By: FRANCI Fluticasone Propionate (Fluticasone Propionate Nasal 16 Gm [place]) 2 spray NOSTRIL-B DAILY [facility] Last Admin: 03/04/25 07:52 Dose: 2 spray Documented By: FRANCI Gabapentin (Gabapentin 300 Mg Capsule) 600 mg PO TID [facility] Last Admin: 03/04/25 07:43 Dose: 600 mg Documented By: FRANCI Guaifenesin/Codeine Phosphate (Guaifen/Codeine Sf 200/20/10ml 10 Ml Liquid) 10 ml PO Q4H PRN PRN Reason: Cough Last Admin: 03/04/25 07:43 Dose: 10 ml Documented By: FRANCI Guaifenesin/Dextromethorphan (Guaifenesin Dm 600/30 1 Tab Tab.Er.12h) 1 tab PO BID PRN PRN Reason: Cough Last Admin: 03/04/25 07:44 Dose: 1 tab Documented By: FRANCI Guaifenesin/Dextromethorphan (Guaifenesin Dm 100/10/5 Ml 5 Ml Syrup) 5 ml PO Q4H PRN PRN Reason: Cough Levalbuterol HCl (Levalbuterol Hcl 1.25 Mg/3 Ml Vial.Neb) 1.25 mg INHALE RQ4H WHILE AWAKE [facility] Last Admin: 03/04/25 11:04 Dose: 1.25 mg Documented By: ORTEGA Lidocaine (Lidocaine 4 % Patch Adh..Patch) 1 patch TRANSDERMA DAILY [facility]; Protocol Last Admin: 03/04/25 07:44 Dose: 1 patch Documented By: FRANCI Magnesium Hydroxide (Milk Of Magnesia 30 Ml Oral.Susp) 30 ml PO DAILY PRN PRN Reason: Constipation Melatonin (Melatonin 3 Mg Tablet) 6 mg PO BEDTIME PRN PRN Reason: Insomnia Last Admin: 03/03/25 21:14 Dose: 6 mg Documented By: HARLAN Methylprednisolone Sodium Succinate (Methylprednisolone Sod Succ 40 Mg/Ml Vial) 40 mg IVPUSH Q12H [facility] Last Admin: 03/04/25 07:43 Dose: 40 mg Documented By: FRANCI Morphine Sulfate (Morphine Sulfate 4 Mg/Ml Cartridge) 4 mg IVPUSH Q4H PRN; Protocol PRN Reason: Pain, Severe (Pain Scale 7-10) Last Admin: 03/04/25 07:44 Dose: 4 mg Documented By: FRANCI Omeprazole (Omeprazole 20 Mg Capsule.) 20 mg PO BID@0630,1630 [facility] Last Admin: 03/04/25 06:02 Dose: 20 mg Documented By: HARLAN Sodium Chloride (0.9 % Sodium Chloride Flush 3 Ml Syringe) 3 ml IVFLUSH QSHIFT [facility] Last Admin: 03/04/25 07:44 Dose: 3 ml Documented By: FRANCI Tamsulosin HCl (Tamsulosin Hcl 0.4 Mg Capsule) 0.4 mg PO DAILY [facility] Last Admin: 03/04/25 07:43 Dose: 0.4 mg Documented By: FRANCI Tramadol HCl (Tramadol Hcl 50 Mg Tablet) 50 mg PO BID PRN PRN Reason: Pain, Moderate(Pain Scale 4-6) Last Admin: 03/04/25 01:19 Dose: 50 mg Documented By: HARLAN Labs 03/03/25 06:43 03/04/25 06:32 Labs: Laboratory Results - last 24 hr 03/03/25 03/04/25 14:10 06:32 Hold Purple Top SEE NOTE Anion Gap 12 Estim Creat Clear Calc 119.7 Estimated GFR > 60 Random Glucose 157 H Calcium 9.0 Magnesium 2.2 Urine Color Yellow Urine Appearance Clear Urine pH 6.0 Ur Specific [place] <= 1.005 Urine Protein Negative Urine Glucose (UA) Negative Urine Ketones Trace Urine Blood Negative Urine Nitrite Negative Ur Leukocyte Esterase Negative Microbiology Microbiology Results: Microbiology 03/03/25 06:39 Blood Culture - Preliminary Blood - Venous No growth after 24 hours. 03/03/25 06:40 Blood Culture - Preliminary Blood - Venous No growth after 24 hours. Assessment and Plan (1) COPD with acute exacerbation: Status: Acute Plan d2 for 89yo F with COPD not on home O2, hx cerebral aneurysm s/p endovascular intervention, hx CVA, L subclavian artery occlusion s/p bypass now on apixaban, HLD, BPH presenting with worsening dyspnea and cough over the last few weeks, admitted for COPD exacerbation with hypoxia acute hypoxic respiratory failure due to COPD exacerbation - continue IV methylprednisolone, standing/prn nebs, start doxycycline 03/04- - supplemental O2, wean as tolerated; no CO2 rentetion headache/neck pain - CT head with - continue lidocaine, APAP, tramadol frequent PVCs - continue telemetry - K/Mg normal hypoNa - mild, improving AVN L femoral head - had CHUYITA for R femoral AVN in 2022; has outpt Ortho consultation for L hx subclavian artery occlusion - apixaban hx CVA - ASA, statin BPH - continue tamsulosin mood disorder - bupropion, alprazolam VTE ppx - enoxaparin dispo - TBD In my clinical judgment, the patient requires continued inpatient hospitalization for the following reasons: hypoxia, COPD Total time managing care of this patient today: 35 minutes. Quality Stroke Does the patient have a stroke diagnosis?: No VTE Prior VTE?: No VTE Risk Level:: Medical - moderate - high VTE Device Contraindication: Treatment Not Indicated VTE Drug Contraindication: N/A - Med Ordered
[2025-03-04] MEDS: Throat Lozenge, Medicated LOZENGE 1 LOZENGE MUCOUS MEM ×3 (12:56→23:57)
[2025-03-04] MEDS: Doxycycline Monohydrate 100 MG CAPSULE PO (12:57)
[2025-03-04] MEDS: Atorvastatin Calcium 80 MG TABLET PO (20:01)
[2025-03-04] MEDS: ALPRAZolam 0.25 MG TABLET PO (23:55)
[2025-03-04] MEDS: Melatonin 3 MG TABLET 6 MG PO (23:55)
[2025-03-05] VITALS (12 sets, daily range): BP systolic 128–178; BP diastolic 73–85; PULSE 75–99; RESP 16–20; TEMP 36.4–37.2; O2SAT 90–97
[2025-03-05] MEDS: Doxycycline Monohydrate 100 MG CAPSULE PO ×2 (01:16→14:28)
[2025-03-05] MEDS: guaiFEN/Codeine SF 200/20/10ML 10 ML LIQUID PO ×4 (01:22→19:52)
[2025-03-05] MEDS: Albuterol/Iprat 2.5/0.5MG 3 ML AMPUL.NEB INHALE ×2 (02:44→05:00)
[2025-03-05] MEDS: Omeprazole 20 MG CAPSULE.DR PO ×2 (05:12→15:14)
[2025-03-05] MEDS: traMADoL HCL 50 MG TABLET PO (05:12)
[2025-03-05] MEDS: levalbuterol HCL 1.25 MG/3 ML VIAL.NEB INHALE ×4 (07:38→20:19)
[2025-03-05] MEDS: Cyanocobalamin (Vitamin B-12) 1,000 MCG TABLET 1000 MCG PO (08:11)
[2025-03-05] MEDS: Apixaban 2.5 MG TABLET PO ×2 (08:11→19:52)
[2025-03-05] MEDS: methylPREDNISolone Sod Succ 40 MG/ML VIAL IVPUSH ×2 (08:11→19:54)
[2025-03-05] MEDS: Gabapentin 300 MG CAPSULE 600 MG PO ×3 (08:11→19:52)
[2025-03-05] MEDS: buPROPion HCl XL 300 MG TAB.ER.24H PO (08:11)
[2025-03-05] MEDS: Tamsulosin HCL 0.4 MG CAPSULE PO (08:11)
[2025-03-05] MEDS: Acetaminophen 325 MG TABLET 650 MG PO ×2 (08:11→14:28)
[2025-03-05] MEDS: guaiFENesin DM 600/30 1 TAB TAB.ER.12H PO (08:12)
[2025-03-05] MEDS: 0.9 % Sodium Chloride Flush 3 ML SYRINGE IVFLUSH ×2 (08:12→14:28)
[2025-03-05] MEDS: Aspirin Enteric Coated 81 MG TABLET.DR PO (08:12)
[2025-03-05] MEDS: Throat Lozenge, Medicated LOZENGE 1 LOZENGE MUCOUS MEM (08:12)
[2025-03-05] MEDS: Lidocaine 4 % Patch ADH..PATCH 1 PATCH TRANSDERMA (08:17)
[2025-03-05] MEDS: Fluticasone Propionate Nasal 16 GM SPRAY 2 SPRAY NOSTRIL-B (08:18)
--- NOTE | 2025-03-05 12:05 | HO.PM.IMPN ---
Subjective Subjective Date of Service: 03/05/25 Interval History: weaned off O2 but feels quite short of breath coughing Review of Systems Review of Systems: Yes all other systems are reviewed and are negative Physical Exam Vital Signs: Vital Signs: Last Vital Signs Temp 98.1 F 03/05/25 07:01 Pulse 95 03/05/25 11:14 Resp 20 03/05/25 11:14 BP 128/85 03/05/25 07:01 Pulse Ox 95 03/05/25 07:01 O2 Del Method Nasal Cannula 03/05/25 07:01 O2 Flow Rate 3 03/05/25 07:01 Oxygen Flow Rate 7 03/03/25 06:26 BMI result Body Mass Index 31.0 Gen: mild resp distress with ambulation HEENT: sclera anicteric, moist mucus membranes Neck: supple Lungs: bilateral expiratory wheezing Heart: regular rate and rhythm, no murmurs Abd: soft, non-tender, non-distended Ext: no edema Skin: warm/well-perfused Neuro: alert and oriented x3, no focal findings Psych: appropriate affect Objective Data Active Medications Acetaminophen (Acetaminophen 325 Mg Tablet) 650 mg PO Q6H PRN PRN Reason: Pain, Mild 1-3,fever,headache Last Admin: 03/05/25 08:11 Dose: 650 mg Documented By: FRANCI Albuterol/Ipratropium (Albuterol/Iprat 2.5/0.5mg 3 Ml Ampul.Neb) 3 ml INHALE Q4H PRN PRN Reason: Wheezing Last Admin: 03/05/25 05:00 Dose: 3 ml Documented By: CARLOS ALBERTO Alprazolam (Alprazolam 0.25 Mg Tablet) 0.25 mg PO BEDTIME PRN PRN Reason: anxiety Last Admin: 03/04/25 23:55 Dose: 0.25 mg Documented By: KEV Apixaban (Apixaban 2.5 Mg Tablet) 2.5 mg PO BID [facility] Last Admin: 03/05/25 08:11 Dose: 2.5 mg Documented By: FRANCI Aspirin (Aspirin Enteric Coated 81 Mg Tablet.) 81 mg PO DAILY [facility] Last Admin: 03/05/25 08:12 Dose: 81 mg Documented By: FRANCI Atorvastatin Calcium (Atorvastatin Calcium 80 Mg Tablet) 80 mg PO BEDTIME [facility] Last Admin: 03/04/25 20:01 Dose: 80 mg Documented By: CARLOS ALBERTO Benzocaine (Throat Lozenge, Medicated Lozenge) 1 lozenge MUCOUS MEM Q2H PRN PRN Reason: Sore Throat Last Admin: 03/05/25 08:12 Dose: 1 lozenge Documented By: FRANCI Bupropion HCl (Bupropion Hcl Xl 300 Mg Tab.Er.24h) 300 mg PO DAILY [facility] Last Admin: 03/05/25 08:11 Dose: 300 mg Documented By: FRANCI Calcium Carbonate (Calcium Carbonate 750 Mg Tab.Chew) 750 mg PO Q4H PRN PRN Reason: Heartburn Cyanocobalamin (Cyanocobalamin (Vitamin B-12) 1,000 Mcg Tablet) 1,000 mcg PO DAILY [facility] Last Admin: 03/05/25 08:11 Dose: 1,000 mcg Documented By: FRANCI Doxycycline Monohydrate (Doxycycline Monohydrate 100 Mg Capsule) 100 mg PO Q12H [facility] Last Admin: 03/05/25 01:16 Dose: 100 mg Documented By: CARLOS ALBERTO Fluticasone Propionate (Fluticasone Propionate Nasal 16 Gm [place]) 2 spray NOSTRIL-B DAILY [facility] Last Admin: 03/05/25 08:18 Dose: 2 spray Documented By: FRANCI Gabapentin (Gabapentin 300 Mg Capsule) 600 mg PO TID [facility] Last Admin: 03/05/25 08:11 Dose: 600 mg Documented By: FRANCI Guaifenesin/Codeine Phosphate (Guaifen/Codeine Sf 200/20/10ml 10 Ml Liquid) 10 ml PO Q4H PRN PRN Reason: Cough Last Admin: 03/05/25 08:11 Dose: 10 ml Documented By: FRANCI Guaifenesin/Dextromethorphan (Guaifenesin Dm 600/30 1 Tab Tab.Er.12h) 1 tab PO BID PRN PRN Reason: Cough Last Admin: 03/05/25 08:12 Dose: 1 tab Documented By: FRANCI Guaifenesin/Dextromethorphan (Guaifenesin Dm 100/10/5 Ml 5 Ml Syrup) 5 ml PO Q4H PRN PRN Reason: Cough Levalbuterol HCl (Levalbuterol Hcl 1.25 Mg/3 Ml Vial.Neb) 1.25 mg INHALE RQ4H WHILE AWAKE [facility] Last Admin: 03/05/25 11:12 Dose: 1.25 mg Documented By: ORTEGA Lidocaine (Lidocaine 4 % Patch Adh..Patch) 1 patch TRANSDERMA DAILY [facility]; Protocol Last Admin: 03/05/25 08:17 Dose: 1 patch Documented By: FRANCI Magnesium Hydroxide (Milk Of Magnesia 30 Ml Oral.Susp) 30 ml PO DAILY PRN PRN Reason: Constipation Melatonin (Melatonin 3 Mg Tablet) 6 mg PO BEDTIME PRN PRN Reason: Insomnia Last Admin: 03/04/25 23:55 Dose: 6 mg Documented By: KEV Methylprednisolone Sodium Succinate (Methylprednisolone Sod Succ 40 Mg/Ml Vial) 40 mg IVPUSH Q12H [facility] Last Admin: 03/05/25 08:11 Dose: 40 mg Documented By: FRANCI Morphine Sulfate (Morphine Sulfate 4 Mg/Ml Cartridge) 4 mg IVPUSH Q4H PRN; Protocol PRN Reason: Pain, Severe (Pain Scale 7-10) Last Admin: 03/04/25 20:02 Dose: 4 mg Documented By: CARLOS ALBERTO Omeprazole (Omeprazole 20 Mg Capsule.) 20 mg PO BID@0630,1630 [facility] Last Admin: 03/05/25 05:12 Dose: 20 mg Documented By: CARLOS ALBERTO Sodium Chloride (0.9 % Sodium Chloride Flush 3 Ml Syringe) 3 ml IVFLUSH QSHIFT [facility] Last Admin: 03/05/25 08:12 Dose: 3 ml Documented By: FRANCI Tamsulosin HCl (Tamsulosin Hcl 0.4 Mg Capsule) 0.4 mg PO DAILY [facility] Last Admin: 03/05/25 08:11 Dose: 0.4 mg Documented By: FRANCI Tramadol HCl (Tramadol Hcl 50 Mg Tablet) 50 mg PO BID PRN PRN Reason: Pain, Moderate(Pain Scale 4-6) Last Admin: 03/05/25 05:12 Dose: 50 mg Documented By: CARLOS ALBERTO Labs 03/03/25 06:43 03/04/25 06:32 Microbiology Microbiology Results: Microbiology 03/03/25 06:39 Blood Culture - Preliminary Blood - Venous No growth after 48 hours. 03/03/25 06:40 Blood Culture - Preliminary Blood - Venous No growth after 48 hours. Assessment and Plan (1) COPD with acute exacerbation: Status: Acute Plan d3 for 64yo F with COPD not on home O2, hx cerebral aneurysm s/p endovascular intervention, hx CVA, L subclavian artery occlusion s/p bypass now on apixaban, HLD, BPH presenting with worsening dyspnea and cough over the last few weeks, admitted for COPD exacerbation with hypoxia acute hypoxic respiratory failure due to COPD exacerbation - continue IV methylprednisolone, standing/prn nebs, doxycycline 03/04- - weaned off O2; no CO2 rentetion headache/neck pain - CT head with - continue lidocaine, APAP, tramadol frequent PVCs - continue telemetry - K/Mg normal hypoNa - mild, improving AVN L femoral head - had CHUYITA for R femoral AVN in 2022; has outpt Ortho consultation for L hx subclavian artery occlusion - apixaban hx CVA - ASA, statin BPH - continue tamsulosin mood disorder - bupropion, alprazolam VTE ppx - enoxaparin dispo - STR vs home with VNA; PT following In my clinical judgment, the patient requires continued inpatient hospitalization for the following reasons: COPD, dyspnea, uncontrolled wheezing Total time managing care of this patient today: 35 minutes. Quality Stroke Does the patient have a stroke diagnosis?: No VTE Prior VTE?: No VTE Risk Level:: Medical - moderate - high VTE Device Contraindication: Treatment Not Indicated VTE Drug Contraindication: N/A - Med Ordered
[2025-03-05] MEDS: Morphine Sulfate 4 MG/ML CARTRIDGE IVPUSH ×2 (15:14→19:54)
[2025-03-05] MEDS: Loratadine 10 MG TABLET PO (16:24)
[2025-03-05] MEDS: Atorvastatin Calcium 80 MG TABLET PO (19:52)
[2025-03-06] VITALS (10 sets, daily range): BP systolic 133–161; BP diastolic 61–88; PULSE 83–92; RESP 16–20; TEMP 36.4–37.2; O2SAT 90–98
[2025-03-06] MEDS: 0.9 % Sodium Chloride Flush 3 ML SYRINGE IVFLUSH ×4 (00:01→20:09)
[2025-03-06] MEDS: Morphine Sulfate 4 MG/ML CARTRIDGE IVPUSH ×3 (00:01→20:13)
[2025-03-06] MEDS: levalbuterol HCL 1.25 MG/3 ML VIAL.NEB INHALE ×5 (00:57→19:16)
[2025-03-06] MEDS: Omeprazole 20 MG CAPSULE.DR PO ×2 (05:59→15:39)
[2025-03-06] MEDS: methylPREDNISolone Sod Succ 40 MG/ML VIAL IVPUSH (07:51)
[2025-03-06] MEDS: buPROPion HCl XL 300 MG TAB.ER.24H PO (07:51)
[2025-03-06] MEDS: Cyanocobalamin (Vitamin B-12) 1,000 MCG TABLET 1000 MCG PO (07:51)
[2025-03-06] MEDS: Throat Lozenge, Medicated LOZENGE 1 LOZENGE MUCOUS MEM ×2 (07:51→22:33)
[2025-03-06] MEDS: Acetaminophen 325 MG TABLET 650 MG PO ×2 (07:52→13:19)
[2025-03-06] MEDS: Apixaban 2.5 MG TABLET PO ×2 (07:52→20:07)
[2025-03-06] MEDS: Gabapentin 300 MG CAPSULE 600 MG PO ×3 (07:52→20:08)
[2025-03-06] MEDS: traMADoL HCL 50 MG TABLET PO ×2 (07:52→22:32)
[2025-03-06] MEDS: Lidocaine 4 % Patch ADH..PATCH 1 PATCH TRANSDERMA (07:52)
[2025-03-06] MEDS: Aspirin Enteric Coated 81 MG TABLET.DR PO (07:52)
[2025-03-06] MEDS: guaiFEN/Codeine SF 200/20/10ML 10 ML LIQUID PO ×2 (07:52→13:18)
[2025-03-06] MEDS: Loratadine 10 MG TABLET PO (07:52)
[2025-03-06] MEDS: Tamsulosin HCL 0.4 MG CAPSULE PO (07:52)
[2025-03-06] MEDS: Fluticasone Propionate Nasal 16 GM SPRAY 2 SPRAY NOSTRIL-B (07:53)
--- NOTE | 2025-03-06 11:41 | HO.PM.IMPN ---
Subjective Subjective Date of Service: 03/06/25 Interval History: desat to 88% at rest and no CO2 retention dyspnea + wheezing improving Review of Systems Review of Systems: Yes all other systems are reviewed and are negative Physical Exam Vital Signs: Vital Signs: Last Vital Signs Temp 98.9 F 03/06/25 07:08 Pulse 86 03/06/25 11:35 Resp 20 03/06/25 11:35 BP 148/88 H 03/06/25 07:08 Pulse Ox 90 L 03/06/25 07:08 O2 Del Method Room Air 03/06/25 07:08 O2 Flow Rate 3 03/05/25 07:01 Oxygen Flow Rate 7 03/03/25 06:26 BMI result Body Mass Index 31.0 Gen: NAD HEENT: sclera anicteric, moist mucus membranes Neck: supple Lungs: diminished throughout Heart: regular rate and rhythm, no murmurs Abd: soft, non-tender, non-distended Ext: no edema Skin: warm/well-perfused Neuro: alert and oriented x3, no focal findings Psych: appropriate affect Objective Data Active Medications Acetaminophen (Acetaminophen 325 Mg Tablet) 650 mg PO Q6H PRN PRN Reason: Pain, Mild 1-3,fever,headache Last Admin: 03/06/25 07:52 Dose: 650 mg Documented By: FRANCI Albuterol/Ipratropium (Albuterol/Iprat 2.5/0.5mg 3 Ml Ampul.Neb) 3 ml INHALE Q4H PRN PRN Reason: Wheezing Last Admin: 03/05/25 05:00 Dose: 3 ml Documented By: CARLOS ALBERTO Alprazolam (Alprazolam 0.25 Mg Tablet) 0.25 mg PO BEDTIME PRN PRN Reason: anxiety Last Admin: 03/06/25 00:00 Dose: 0.25 mg Documented By: JERO Apixaban (Apixaban 2.5 Mg Tablet) 2.5 mg PO BID [facility] Last Admin: 03/06/25 07:52 Dose: 2.5 mg Documented By: FRANCI Aspirin (Aspirin Enteric Coated 81 Mg Tablet.) 81 mg PO DAILY [facility] Last Admin: 03/06/25 07:52 Dose: 81 mg Documented By: FRANCI Atorvastatin Calcium (Atorvastatin Calcium 80 Mg Tablet) 80 mg PO BEDTIME [facility] Last Admin: 03/05/25 19:52 Dose: 80 mg Documented By: CARLOS ALBERTO Benzocaine (Throat Lozenge, Medicated Lozenge) 1 lozenge MUCOUS MEM Q2H PRN PRN Reason: Sore Throat Last Admin: 03/06/25 07:51 Dose: 1 lozenge Documented By: FRANCI Bupropion HCl (Bupropion Hcl Xl 300 Mg Tab.Er.24h) 300 mg PO DAILY [facility] Last Admin: 03/06/25 07:51 Dose: 300 mg Documented By: FRANCI Calcium Carbonate (Calcium Carbonate 750 Mg Tab.Chew) 750 mg PO Q4H PRN PRN Reason: Heartburn Cyanocobalamin (Cyanocobalamin (Vitamin B-12) 1,000 Mcg Tablet) 1,000 mcg PO DAILY [facility] Last Admin: 03/06/25 07:51 Dose: 1,000 mcg Documented By: FRANCI Doxycycline Monohydrate (Doxycycline Monohydrate 100 Mg Capsule) 100 mg PO Q12H [facility] Last Admin: 03/06/25 00:00 Dose: 100 mg Documented By: JERO Fluticasone Propionate (Fluticasone Propionate Nasal 16 Gm [place]) 2 spray NOSTRIL-B DAILY [facility] Last Admin: 03/06/25 07:53 Dose: 2 spray Documented By: FRANCI Gabapentin (Gabapentin 300 Mg Capsule) 600 mg PO TID [facility] Last Admin: 03/06/25 07:52 Dose: 600 mg Documented By: FRANCI Guaifenesin/Codeine Phosphate (Guaifen/Codeine Sf 200/20/10ml 10 Ml Liquid) 10 ml PO Q4H PRN PRN Reason: Cough Last Admin: 03/06/25 07:52 Dose: 10 ml Documented By: FRANCI Guaifenesin/Dextromethorphan (Guaifenesin Dm 600/30 1 Tab Tab.Er.12h) 1 tab PO BID PRN PRN Reason: Cough Last Admin: 03/06/25 00:00 Dose: 1 tab Documented By: JERO Guaifenesin/Dextromethorphan (Guaifenesin Dm 100/10/5 Ml 5 Ml Syrup) 5 ml PO Q4H PRN PRN Reason: Cough Levalbuterol HCl (Levalbuterol Hcl 1.25 Mg/3 Ml Vial.Neb) 1.25 mg INHALE RQ4H WHILE AWAKE [facility] Last Admin: 03/06/25 11:35 Dose: 1.25 mg Documented By: ZONIA Lidocaine (Lidocaine 4 % Patch Adh..Patch) 1 patch TRANSDERMA DAILY [facility]; Protocol Last Admin: 03/06/25 07:52 Dose: 1 patch Documented By: FRANCI Loratadine (Loratadine 10 Mg Tablet) 10 mg PO DAILY [facility] Last Admin: 03/06/25 07:52 Dose: 10 mg Documented By: FRANCI Magnesium Hydroxide (Milk Of Magnesia 30 Ml Oral.Susp) 30 ml PO DAILY PRN PRN Reason: Constipation Melatonin (Melatonin 3 Mg Tablet) 6 mg PO BEDTIME PRN PRN Reason: Insomnia Last Admin: 03/04/25 23:55 Dose: 6 mg Documented By: KEV Methylprednisolone Sodium Succinate (Methylprednisolone Sod Succ 40 Mg/Ml Vial) 40 mg IVPUSH Q12H [facility] Last Admin: 03/06/25 07:51 Dose: 40 mg Documented By: FRANCI Morphine Sulfate (Morphine Sulfate 4 Mg/Ml Cartridge) 4 mg IVPUSH Q4H PRN; Protocol PRN Reason: Pain, Severe (Pain Scale 7-10) Last Admin: 03/06/25 00:01 Dose: 4 mg Documented By: JERO Omeprazole (Omeprazole 20 Mg Capsule.) 20 mg PO BID@0630,1630 [facility] Last Admin: 03/06/25 05:59 Dose: 20 mg Documented By: JERO Pseudoephedrine HCl (Pseudoephedrine Hcl 30 Mg Tablet) 30 mg PO Q4H PRN PRN Reason: Nasal Congestion Sodium Chloride (0.9 % Sodium Chloride Flush 3 Ml Syringe) 3 ml IVFLUSH QSHIFT [facility] Last Admin: 03/06/25 07:52 Dose: 3 ml Documented By: FRANCI Tamsulosin HCl (Tamsulosin Hcl 0.4 Mg Capsule) 0.4 mg PO DAILY [facility] Last Admin: 03/06/25 07:52 Dose: 0.4 mg Documented By: FRANCI Tramadol HCl (Tramadol Hcl 50 Mg Tablet) 50 mg PO BID PRN PRN Reason: Pain, Moderate(Pain Scale 4-6) Last Admin: 03/06/25 07:52 Dose: 50 mg Documented By: FRANCI Labs 03/03/25 06:43 03/04/25 06:32 Microbiology Microbiology Results: Microbiology 03/03/25 06:39 Blood Culture - Preliminary Blood - Venous No growth after 48 hours. 03/03/25 06:40 Blood Culture - Preliminary Blood - Venous No growth after 48 hours. Assessment and Plan (1) COPD with acute exacerbation: Status: Acute Plan d4 for 64yo F with COPD not on home O2, hx cerebral aneurysm s/p endovascular intervention, hx CVA, L subclavian artery occlusion s/p bypass now on apixaban, HLD, BPH presenting with worsening dyspnea and cough over the last few weeks, admitted for COPD exacerbation with hypoxia acute hypoxic respiratory failure due to COPD exacerbation - decrease IV methylprednisolone and eventually d/c on prednisone taper, standing/prn nebs, doxycycline 03/04- - wean off O2 as tolerated; no CO2 retention headache/neck pain - CT head without ICH - continue lidocaine, APAP, tramadol frequent PVCs - continue telemetry - K/Mg normal hypoNa - mild, improved AVN L femoral head - had CHUYITA for R femoral AVN in 2022; has outpt Ortho consultation for L in March hx subclavian artery occlusion - apixaban hx CVA - ASA, statin BPH - continue tamsulosin mood disorder - bupropion, alprazolam VTE ppx - apixaban dispo - STR vs home with VNA; PT following and should re-evaluate in AM In my clinical judgment, the patient requires continued inpatient hospitalization for the following reasons: hypoxia Total time managing care of this patient today: 35 minutes. Quality Stroke Does the patient have a stroke diagnosis?: No VTE Prior VTE?: No VTE Risk Level:: Medical - moderate - high VTE Device Contraindication: Treatment Not Indicated VTE Drug Contraindication: N/A - Med Ordered
[2025-03-06] MEDS: guaiFENesin DM 600/30 1 TAB TAB.ER.12H PO ×2 (13:18)
[2025-03-06] MEDS: Pseudoephedrine HCL 30 MG TABLET PO (13:19)
[2025-03-06] MEDS: Doxycycline Monohydrate 100 MG CAPSULE PO ×3 (13:19→23:24)
[2025-03-06] MEDS: Atorvastatin Calcium 80 MG TABLET PO (20:08)
[2025-03-06] MEDS: ALPRAZolam 0.25 MG TABLET PO ×2 (22:23)
[2025-03-07] VITALS (11 sets, daily range): BP systolic 125–157; BP diastolic 60–84; PULSE 75–88; RESP 16–20; TEMP 36.2–37.1; O2SAT 91–97
[2025-03-07] MEDS: Omeprazole 20 MG CAPSULE.DR PO ×2 (05:00→15:28)
[2025-03-07] MEDS: levalbuterol HCL 1.25 MG/3 ML VIAL.NEB INHALE ×4 (07:46→20:00)
[2025-03-07] MEDS: Gabapentin 300 MG CAPSULE 600 MG PO ×3 (08:03→20:51)
[2025-03-07] MEDS: Aspirin Enteric Coated 81 MG TABLET.DR PO (08:03)
[2025-03-07] MEDS: Apixaban 2.5 MG TABLET PO ×2 (08:03→20:51)
[2025-03-07] MEDS: Cyanocobalamin (Vitamin B-12) 1,000 MCG TABLET 1000 MCG PO (08:03)
[2025-03-07] MEDS: buPROPion HCl XL 300 MG TAB.ER.24H PO (08:03)
[2025-03-07] MEDS: Loratadine 10 MG TABLET PO (08:03)
[2025-03-07] MEDS: Tamsulosin HCL 0.4 MG CAPSULE PO (08:03)
[2025-03-07] MEDS: Lidocaine 4 % Patch ADH..PATCH 1 PATCH TRANSDERMA (08:04)
[2025-03-07] MEDS: methylPREDNISolone Sod Succ 40 MG/ML VIAL IVPUSH (08:04)
[2025-03-07] MEDS: 0.9 % Sodium Chloride Flush 3 ML SYRINGE IVFLUSH ×3 (08:04→20:52)
[2025-03-07] MEDS: Morphine Sulfate 4 MG/ML CARTRIDGE IVPUSH ×4 (08:16→23:20)
[2025-03-07] MEDS: Fluticasone Propionate Nasal 16 GM SPRAY 2 SPRAY NOSTRIL-B (08:18)
--- NOTE | 2025-03-07 10:20 | MHC.CM.PN ---
Per ROUNDS discussion, Patient is not yet medically cleared for dc (IV Solu Medrol & IV Morphine today); PT is now recommending home vs STR/Patient prefers to go home. CM will follow.
[2025-03-07] MEDS: guaiFEN/Codeine SF 200/20/10ML 10 ML LIQUID PO ×2 (13:18→23:19)
[2025-03-07] MEDS: Doxycycline Monohydrate 100 MG CAPSULE PO ×2 (13:19→23:45)
--- NOTE | 2025-03-07 16:22 | P.PNIM_ITS ---
Subjective Subjective Date of Service: 03/07/25 Interval History: Noted to desaturate overnight. Breathing improved since admission Review of Systems Denies chest pain Admits shortness of breath with exertion that has improved Denies nausea vomiting diarrhea Denies fever chills Physical Exam 2 Vital Signs: Vital Signs: Last Vital Signs Temp 97.4 F 03/07/25 11:45 Pulse 86 03/07/25 16:02 Resp 18 03/07/25 16:02 BP 126/60 03/07/25 11:45 Pulse Ox 92 03/07/25 11:45 O2 Del Method Nasal Cannula 03/07/25 11:45 O2 Flow Rate 1 03/07/25 11:45 Oxygen Flow Rate 7 03/03/25 06:26 BMI result Body Mass Index 31.0 Const: Other: Awake alert no acute distress Resp: Other: Diminished at bases with scattered expiratory wheezes Cardio: Other: No S4; positive S1-S2; no S3 murmurs rubs or gallops GI: Other: Soft nontender nondistended normoactive bowel sounds Extrem: Other: No edema bilaterally Objective Data Active Medications Acetaminophen (Acetaminophen 325 Mg Tablet) 650 mg PO Q6H PRN PRN Reason: Pain, Mild 1-3,fever,headache Last Admin: 03/06/25 13:19 Dose: 650 mg Documented By: FRANCI Albuterol/Ipratropium (Albuterol/Iprat 2.5/0.5mg 3 Ml Ampul.Neb) 3 ml INHALE Q4H PRN PRN Reason: Wheezing Last Admin: 03/05/25 05:00 Dose: 3 ml Documented By: CARLOS ALBERTO Alprazolam (Alprazolam 0.25 Mg Tablet) 0.25 mg PO BEDTIME PRN PRN Reason: anxiety Last Admin: 03/06/25 22:23 Dose: 0.25 mg Documented By: DEREK Apixaban (Apixaban 2.5 Mg Tablet) 2.5 mg PO BID [facility] Last Admin: 03/07/25 08:03 Dose: 2.5 mg Documented By: ARNOLD Aspirin (Aspirin Enteric Coated 81 Mg Tablet.) 81 mg PO DAILY [facility] Last Admin: 03/07/25 08:03 Dose: 81 mg Documented By: ARNOLD Atorvastatin Calcium (Atorvastatin Calcium 80 Mg Tablet) 80 mg PO BEDTIME [facility] Last Admin: 03/06/25 20:08 Dose: 80 mg Documented By: DEREK Benzocaine (Throat Lozenge, Medicated Lozenge) 1 lozenge MUCOUS MEM Q2H PRN PRN Reason: Sore Throat Last Admin: 03/06/25 22:33 Dose: 1 lozenge Documented By: DEREK Bupropion HCl (Bupropion Hcl Xl 300 Mg Tab.Er.24h) 300 mg PO DAILY [facility] Last Admin: 03/07/25 08:03 Dose: 300 mg Documented By: ARNOLD Calcium Carbonate (Calcium Carbonate 750 Mg Tab.Chew) 750 mg PO Q4H PRN PRN Reason: Heartburn Cyanocobalamin (Cyanocobalamin (Vitamin B-12) 1,000 Mcg Tablet) 1,000 mcg PO DAILY [facility] Last Admin: 03/07/25 08:03 Dose: 1,000 mcg Documented By: ARNOLD Doxycycline Monohydrate (Doxycycline Monohydrate 100 Mg Capsule) 100 mg PO Q12H [facility] Last Admin: 03/07/25 13:19 Dose: 100 mg Documented By: ARNOLD Fluticasone Propionate (Fluticasone Propionate Nasal 16 Gm [place]) 2 spray NOSTRIL-B DAILY [facility] Last Admin: 03/07/25 08:18 Dose: 2 spray Documented By: ARNOLD Gabapentin (Gabapentin 300 Mg Capsule) 600 mg PO TID [facility] Last Admin: 03/07/25 15:28 Dose: 600 mg Documented By: ARNOLD Guaifenesin/Codeine Phosphate (Guaifen/Codeine Sf 200/20/10ml 10 Ml Liquid) 10 ml PO Q4H PRN PRN Reason: Cough Last Admin: 03/07/25 13:18 Dose: 10 ml Documented By: ARNOLD Guaifenesin/Dextromethorphan (Guaifenesin Dm 600/30 1 Tab Tab.Er.12h) 1 tab PO BID PRN PRN Reason: Cough Last Admin: 03/06/25 13:18 Dose: 1 tab Documented By: FLORIAN-GONZÁLEZ Guaifenesin/Dextromethorphan (Guaifenesin Dm 100/10/5 Ml 5 Ml Syrup) 5 ml PO Q4H PRN PRN Reason: Cough Levalbuterol HCl (Levalbuterol Hcl 1.25 Mg/3 Ml Vial.Neb) 1.25 mg INHALE RQ4H WHILE AWAKE [facility] Last Admin: 03/07/25 16:01 Dose: 1.25 mg Documented By: DELMAR Lidocaine (Lidocaine 4 % Patch Adh..Patch) 1 patch TRANSDERMA DAILY [facility]; Protocol Last Admin: 03/07/25 08:04 Dose: 1 patch Documented By: ARNOLD Loratadine (Loratadine 10 Mg Tablet) 10 mg PO DAILY [facility] Last Admin: 03/07/25 08:03 Dose: 10 mg Documented By: ARNOLD Magnesium Hydroxide (Milk Of Magnesia 30 Ml Oral.Susp) 30 ml PO DAILY PRN PRN Reason: Constipation Melatonin (Melatonin 3 Mg Tablet) 6 mg PO BEDTIME PRN PRN Reason: Insomnia Last Admin: 03/04/25 23:55 Dose: 6 mg Documented By: KEV Methylprednisolone Sodium Succinate (Methylprednisolone Sod Succ 40 Mg/Ml Vial) 40 mg IVPUSH DAILY [facility] Last Admin: 03/07/25 08:04 Dose: 40 mg Documented By: ARNOLD Morphine Sulfate (Morphine Sulfate 4 Mg/Ml Cartridge) 4 mg IVPUSH Q4H PRN; Protocol PRN Reason: Pain, Severe (Pain Scale 7-10) Last Admin: 03/07/25 13:18 Dose: 4 mg Documented By: ARNOLD Omeprazole (Omeprazole 20 Mg Capsule.) 20 mg PO BID@0630,1630 [facility] Last Admin: 03/07/25 15:28 Dose: 20 mg Documented By: ARNOLD Pseudoephedrine HCl (Pseudoephedrine Hcl 30 Mg Tablet) 30 mg PO Q4H PRN PRN Reason: Nasal Congestion Last Admin: 03/06/25 13:19 Dose: 30 mg Documented By: FLORIAN-RIVLA Sodium Chloride (0.9 % Sodium Chloride Flush 3 Ml Syringe) 3 ml IVFLUSH QSHIFT [facility] Last Admin: 03/07/25 08:04 Dose: 3 ml Documented By: ARNOLD Tamsulosin HCl (Tamsulosin Hcl 0.4 Mg Capsule) 0.4 mg PO DAILY [facility] Last Admin: 03/07/25 08:03 Dose: 0.4 mg Documented By: ARNOLD Tramadol HCl (Tramadol Hcl 50 Mg Tablet) 50 mg PO BID PRN PRN Reason: Pain, Moderate(Pain Scale 4-6) Last Admin: 03/06/25 22:32 Dose: 50 mg Documented By: DEREK Labs 03/03/25 06:43 03/04/25 06:32 Assessment and Plan (1) Acute hypoxic respiratory failure: Status: Acute (2) Acute exacerbation of chronic obstructive pulmonary disease: Status: Acute Plan 64yo F with COPD not on home O2, hx cerebral aneurysm s/p endovascular intervention, hx CVA, L subclavian artery occlusion s/p bypass now on apixaban, HLD, BPH presenting with worsening dyspnea and cough over the last few weeks, admitted for COPD exacerbation with hypoxia 1.Acute hypoxic respiratory failure due to COPD exacerbation - IV methylprednisolone/d/c on prednisone taper -doxycycline (4) -overnight O2 study; will likely need CPAP at night 2.Frequent PVCs - continue telemetry - K/Mg normal 3.AVN L femoral head - had [facility]UYITA for R femoral AVN in 2022; has outpt Ortho consultation for L in March 23.Hx subclavian artery occlusion - apixaban as ordered Apixaban Full Code dispo - STR vs home with VNA; PT following and should re-evaluate in AM In my clinical judgment, the patient requires continued inpatient hospitalization for the following reasons: hypoxia Quality Stroke Does the patient have a stroke diagnosis?: No VTE Prior VTE?: No VTE Risk Level:: Medical - moderate - high VTE Device Contraindication: Treatment Not Indicated VTE Drug Contraindication: N/A - Med Ordered
[2025-03-07] MEDS: Atorvastatin Calcium 80 MG TABLET PO (20:51)
[2025-03-07] MEDS: traMADoL HCL 50 MG TABLET PO (20:52)
[2025-03-07] MEDS: ALPRAZolam 0.25 MG TABLET PO (23:20)
[2025-03-07] MEDS: Throat Lozenge, Medicated LOZENGE 1 LOZENGE MUCOUS MEM (23:45)
[2025-03-08] VITALS (10 sets, daily range): BP systolic 112–161; BP diastolic 60–95; PULSE 80–98; RESP 16–22; TEMP 36.1–36.7; O2SAT 90–95
[2025-03-08] MEDS: Calcium Carbonate 750 MG TAB.CHEW PO (03:57)
[2025-03-08] MEDS: Morphine Sulfate 4 MG/ML CARTRIDGE IVPUSH ×2 (03:57→07:51)
[2025-03-08] MEDS: Omeprazole 20 MG CAPSULE.DR PO ×2 (05:48→15:29)
[2025-03-08] MEDS: Apixaban 2.5 MG TABLET PO ×2 (07:40→19:35)
[2025-03-08] MEDS: Aspirin Enteric Coated 81 MG TABLET.DR PO (07:40)
[2025-03-08] MEDS: buPROPion HCl XL 300 MG TAB.ER.24H PO (07:40)
[2025-03-08] MEDS: Tamsulosin HCL 0.4 MG CAPSULE PO (07:40)
[2025-03-08] MEDS: Loratadine 10 MG TABLET PO (07:40)
[2025-03-08] MEDS: Cyanocobalamin (Vitamin B-12) 1,000 MCG TABLET 1000 MCG PO (07:40)
[2025-03-08] MEDS: Gabapentin 300 MG CAPSULE 600 MG PO ×3 (07:40→19:35)
[2025-03-08] MEDS: methylPREDNISolone Sod Succ 40 MG/ML VIAL IVPUSH (07:41)
[2025-03-08] MEDS: Fluticasone Propionate Nasal 16 GM SPRAY 2 SPRAY NOSTRIL-B (07:41)
[2025-03-08] MEDS: 0.9 % Sodium Chloride Flush 3 ML SYRINGE IVFLUSH ×2 (07:42→23:33)
[2025-03-08] MEDS: guaiFEN/Codeine SF 200/20/10ML 10 ML LIQUID PO ×2 (07:50→19:38)
[2025-03-08] MEDS: levalbuterol HCL 1.25 MG/3 ML VIAL.NEB INHALE ×4 (08:16→19:44)
[2025-03-08] MEDS: Doxycycline Monohydrate 100 MG CAPSULE PO ×2 (12:45→23:32)
[2025-03-08] MEDS: traMADoL HCL 50 MG TABLET PO (12:45)
[2025-03-08] MEDS: oxyCODONE HCl Immed Release 5 MG TABLET PO ×3 (13:51→23:32)
--- NOTE | 2025-03-08 15:08 | P.PNIM_ITS ---
Subjective Subjective Date of Service: 03/08/25 Interval History: More short of breath this a.m.. Patient states he feels it Review of Systems Denies chest pain Admits shortness of breath with exertion that has worsened Denies nausea vomiting diarrhea Denies fever chills Physical Exam 2 Vital Signs: Vital Signs: Last Vital Signs Temp 97.6 F 03/08/25 11:53 Pulse 84 03/08/25 11:53 Resp 20 03/08/25 11:53 BP 112/60 03/08/25 11:53 Pulse Ox 90 L 03/08/25 11:53 O2 Del Method Nasal Cannula 03/08/25 11:53 O2 Flow Rate 1 03/08/25 11:53 Oxygen Flow Rate 7 03/03/25 06:26 BMI result Body Mass Index 31.0 Const: Other: Awake alert no acute distress Resp: Other: Diminished at bases with worsening of scattered expiratory wheezes Cardio: Other: No S4; positive S1-S2; no S3 murmurs rubs or gallops GI: Other: Soft nontender nondistended normoactive bowel sounds Extrem: Other: No edema bilaterally Objective Data Active Medications Acetaminophen (Acetaminophen 325 Mg Tablet) 650 mg PO Q6H PRN PRN Reason: Pain, Mild 1-3,fever,headache Last Admin: 03/06/25 13:19 Dose: 650 mg Documented By: FRANCI Albuterol/Ipratropium (Albuterol/Iprat 2.5/0.5mg 3 Ml Ampul.Neb) 3 ml INHALE Q4H PRN PRN Reason: Wheezing Last Admin: 03/05/25 05:00 Dose: 3 ml Documented By: CARLOS ALBERTO Alprazolam (Alprazolam 0.25 Mg Tablet) 0.25 mg PO BEDTIME PRN PRN Reason: anxiety Last Admin: 03/07/25 23:20 Dose: 0.25 mg Documented By: CARLOS ALBERTO Apixaban (Apixaban 2.5 Mg Tablet) 2.5 mg PO BID [facility] Last Admin: 03/08/25 07:40 Dose: 2.5 mg Documented By: ARNOLD Aspirin (Aspirin Enteric Coated 81 Mg Tablet.) 81 mg PO DAILY [facility] Last Admin: 03/08/25 07:40 Dose: 81 mg Documented By: ARNOLD Atorvastatin Calcium (Atorvastatin Calcium 80 Mg Tablet) 80 mg PO BEDTIME [facility] Last Admin: 03/07/25 20:51 Dose: 80 mg Documented By: CARLOS ALBERTO Benzocaine (Throat Lozenge, Medicated Lozenge) 1 lozenge MUCOUS MEM Q2H PRN PRN Reason: Sore Throat Last Admin: 03/07/25 23:45 Dose: 1 lozenge Documented By: CARLOS ALBERTO Bupropion HCl (Bupropion Hcl Xl 300 Mg Tab.Er.24h) 300 mg PO DAILY [facility] Last Admin: 03/08/25 07:40 Dose: 300 mg Documented By: ARNOLD Calcium Carbonate (Calcium Carbonate 750 Mg Tab.Chew) 750 mg PO Q4H PRN PRN Reason: Heartburn Last Admin: 03/08/25 03:57 Dose: 750 mg Documented By: CARLOS ALBERTO Cyanocobalamin (Cyanocobalamin (Vitamin B-12) 1,000 Mcg Tablet) 1,000 mcg PO DAILY [facility] Last Admin: 03/08/25 07:40 Dose: 1,000 mcg Documented By: ARNOLD Doxycycline Monohydrate (Doxycycline Monohydrate 100 Mg Capsule) 100 mg PO Q12H [facility] Last Admin: 03/08/25 12:45 Dose: 100 mg Documented By: ARNOLD Fluticasone Propionate (Fluticasone Propionate Nasal 16 Gm [place]) 2 spray NOSTRIL-B DAILY [facility] Last Admin: 03/08/25 07:41 Dose: 2 spray Documented By: ARNOLD Gabapentin (Gabapentin 300 Mg Capsule) 600 mg PO TID [facility] Last Admin: 03/08/25 07:40 Dose: 600 mg Documented By: ARNOLD Guaifenesin/Codeine Phosphate (Guaifen/Codeine Sf 200/20/10ml 10 Ml Liquid) 10 ml PO Q4H PRN PRN Reason: Cough Last Admin: 03/08/25 07:50 Dose: 10 ml Documented By: ARNOLD Guaifenesin/Dextromethorphan (Guaifenesin Dm 600/30 1 Tab Tab.Er.12h) 1 tab PO BID PRN PRN Reason: Cough Last Admin: 03/06/25 13:18 Dose: 1 tab Documented By: FRANCI Guaifenesin/Dextromethorphan (Guaifenesin Dm 100/10/5 Ml 5 Ml Syrup) 5 ml PO Q4H PRN PRN Reason: Cough Levalbuterol HCl (Levalbuterol Hcl 1.25 Mg/3 Ml Vial.Neb) 1.25 mg INHALE RQ4H WHILE AWAKE [facility] Last Admin: 03/08/25 11:08 Dose: 1.25 mg Documented By: KRAIG Lidocaine (Lidocaine 4 % Patch Adh..Patch) 1 patch TRANSDERMA DAILY [facility]; Protocol Last Admin: 03/08/25 07:47 Dose: Not Given Documented By: ARNOLD Non-Admin Reason: Patient Refused Loratadine (Loratadine 10 Mg Tablet) 10 mg PO DAILY [facility] Last Admin: 03/08/25 07:40 Dose: 10 mg Documented By: ARNOLD Magnesium Hydroxide (Milk Of Magnesia 30 Ml Oral.Susp) 30 ml PO DAILY PRN PRN Reason: Constipation Melatonin (Melatonin 3 Mg Tablet) 6 mg PO BEDTIME PRN PRN Reason: Insomnia Last Admin: 03/04/25 23:55 Dose: 6 mg Documented By: KEV Methylprednisolone Sodium Succinate (Methylprednisolone Sod Succ 125 Mg Vial) 60 mg IVPUSH Q6H [facility] Omeprazole (Omeprazole 20 Mg Capsule.) 20 mg PO BID@0630,1630 [facility] Last Admin: 03/08/25 05:48 Dose: 20 mg Documented By: CARLOS ALBERTO Oxycodone HCl (Oxycodone Hcl Immed Release 5 Mg Tablet) 5 mg PO Q4H PRN PRN Reason: Pain, Moderate(Pain Scale 4-6) Last Admin: 03/08/25 13:51 Dose: 5 mg Documented By: ARNOLD Pseudoephedrine HCl (Pseudoephedrine Hcl 30 Mg Tablet) 30 mg PO Q4H PRN PRN Reason: Nasal Congestion Last Admin: 03/06/25 13:19 Dose: 30 mg Documented By: FRANCI Sodium Chloride (0.9 % Sodium Chloride Flush 3 Ml Syringe) 3 ml IVFLUSH QSHIFT [facility] Last Admin: 03/08/25 07:42 Dose: 3 ml Documented By: ARNOLD Tamsulosin HCl (Tamsulosin Hcl 0.4 Mg Capsule) 0.4 mg PO DAILY [facility] Last Admin: 03/08/25 07:40 Dose: 0.4 mg Documented By: ARNOLD Tramadol HCl (Tramadol Hcl 50 Mg Tablet) 50 mg PO BID PRN PRN Reason: Pain, Moderate(Pain Scale 4-6) Last Admin: 03/08/25 12:45 Dose: 50 mg Documented By: ARNOLD Labs 03/03/25 06:43 03/04/25 06:32 Microbiology Microbiology Results: Microbiology 03/03/25 06:39 Blood Culture - Final Blood - Venous No growth after 5 days. 03/03/25 06:40 Blood Culture - Final Blood - Venous No growth after 5 days. Assessment and Plan (1) Acute exacerbation of chronic obstructive pulmonary disease: Status: Acute Plan 64yo F with COPD not on home O2, hx cerebral aneurysm s/p endovascular intervention, hx CVA, L subclavian artery occlusion s/p bypass now on apixaban, HLD, BPH presenting with worsening dyspnea and cough over the last few weeks, admitted for COPD exacerbation with hypoxia 1.Acute hypoxic respiratory failure due to COPD exacerbation - IV methylprednisolone; we will give 125 at this a.m. and go 60 q.6 times 24 hours given worsening of clinical presentation -doxycycline (5) -overnight O2 study; will likely need CPAP at night 2.Frequent PVCs - continue telemetry - K/Mg normal 3.AVN L femoral head - had [facility] for R femoral AVN in 2022; has outpt Ortho consultation for L in March 23.Hx subclavian artery occlusion - apixaban as ordered Apixaban Full Code dispo - STR vs home with VNA; PT following and should re-evaluate in AM In my clinical judgment, the patient requires continued inpatient hospitalization for the following reasons: hypoxia Quality Stroke Does the patient have a stroke diagnosis?: No VTE Prior VTE?: No VTE Risk Level:: Medical - moderate - high VTE Device Contraindication: Treatment Not Indicated VTE Drug Contraindication: N/A - Med Ordered
[2025-03-08] MEDS: Atorvastatin Calcium 80 MG TABLET PO (19:35)
[2025-03-08] MEDS: guaiFENesin DM 600/30 1 TAB TAB.ER.12H PO (19:39)
[2025-03-08] MEDS: Throat Lozenge, Medicated LOZENGE 1 LOZENGE MUCOUS MEM ×2 (19:39→22:56)
[2025-03-08] MEDS: Melatonin 3 MG TABLET 6 MG PO (22:55)
[2025-03-08] MEDS: ALPRAZolam 0.25 MG TABLET PO (22:55)
[2025-03-08] MEDS: guaiFENesin DM 100/10/5 ML 5 ML SYRUP PO (23:33)
[2025-03-09] VITALS (10 sets, daily range): BP systolic 113–133; BP diastolic 58–74; PULSE 86–94; RESP 15–20; TEMP 36.2–36.6; O2SAT 91–95
[2025-03-09] MEDS: Calcium Carbonate 750 MG TAB.CHEW PO (00:47)
[2025-03-09] MEDS: Throat Lozenge, Medicated LOZENGE 1 LOZENGE MUCOUS MEM ×3 (05:14→20:03)
[2025-03-09] MEDS: Omeprazole 20 MG CAPSULE.DR PO ×2 (05:14→15:38)
[2025-03-09] MEDS: oxyCODONE HCl Immed Release 5 MG TABLET PO ×3 (05:15→20:03)
[2025-03-09] MEDS: guaiFENesin DM 100/10/5 ML 5 ML SYRUP PO ×3 (05:15→19:57)
[2025-03-09] MEDS: Albuterol/Iprat 2.5/0.5MG 3 ML AMPUL.NEB INHALE (05:21)
[2025-03-09] MEDS: guaiFENesin DM 600/30 1 TAB TAB.ER.12H PO (08:48)
[2025-03-09] MEDS: Aspirin Enteric Coated 81 MG TABLET.DR PO (08:48)
[2025-03-09] MEDS: Tamsulosin HCL 0.4 MG CAPSULE PO (08:49)
[2025-03-09] MEDS: buPROPion HCl XL 300 MG TAB.ER.24H PO (08:49)
[2025-03-09] MEDS: Pseudoephedrine HCL 30 MG TABLET PO (08:49)
[2025-03-09] MEDS: Loratadine 10 MG TABLET PO (08:49)
[2025-03-09] MEDS: Gabapentin 300 MG CAPSULE 600 MG PO ×3 (08:49→19:56)
[2025-03-09] MEDS: Apixaban 2.5 MG TABLET PO ×2 (08:49→19:56)
[2025-03-09] MEDS: Acetaminophen 325 MG TABLET 650 MG PO (08:49)
[2025-03-09] MEDS: traMADoL HCL 50 MG TABLET PO (08:49)
[2025-03-09] MEDS: Cyanocobalamin (Vitamin B-12) 1,000 MCG TABLET 1000 MCG PO (08:49)
[2025-03-09] MEDS: Lidocaine 4 % Patch ADH..PATCH 1 PATCH TRANSDERMA (08:50)
[2025-03-09] MEDS: 0.9 % Sodium Chloride Flush 3 ML SYRINGE IVFLUSH ×3 (08:50→19:56)
[2025-03-09] MEDS: Fluticasone Propionate Nasal 16 GM SPRAY 2 SPRAY NOSTRIL-B (08:50)
[2025-03-09] MEDS: levalbuterol HCL 1.25 MG/3 ML VIAL.NEB INHALE ×3 (11:19→19:14)
--- NOTE | 2025-03-09 12:32 | MHC.CM.PN ---
PT is recommending STR; Patient wants to go home with VNA. CM will continue to follow.
[2025-03-09] MEDS: Doxycycline Monohydrate 100 MG CAPSULE PO (13:00)
--- NOTE | 2025-03-09 14:49 | P.PNIM_ITS ---
Subjective Subjective Date of Service: 03/09/25 Interval History: Minimal improvement in breathing overnight Review of Systems Denies chest pain Admits shortness of breath with exertion that has worsened Denies nausea vomiting diarrhea Denies fever chills Physical Exam 2 Vital Signs: Vital Signs: Last Vital Signs Temp 97.1 F 03/09/25 11:10 Pulse 86 03/09/25 11:21 Resp 16 03/09/25 11:21 BP 120/58 L 03/09/25 11:10 Pulse Ox 91 L 03/09/25 11:10 O2 Del Method Nasal Cannula 03/09/25 11:10 O2 Flow Rate 2 03/09/25 11:10 Oxygen Flow Rate 7 03/03/25 06:26 BMI result Body Mass Index 31.0 Const: Other: Awake alert no acute distress Resp: Other: Diminished at bases with worsening of scattered expiratory wheezes Cardio: Other: No S4; positive S1-S2; no S3 murmurs rubs or gallops GI: Other: Soft nontender nondistended normoactive bowel sounds Extrem: Other: No edema bilaterally Objective Data Active Medications Acetaminophen (Acetaminophen 325 Mg Tablet) 650 mg PO Q6H PRN PRN Reason: Pain, Mild 1-3,fever,headache Last Admin: 03/09/25 08:49 Dose: 650 mg Documented By: RACHEL Albuterol/Ipratropium (Albuterol/Iprat 2.5/0.5mg 3 Ml Ampul.Neb) 3 ml INHALE Q4H PRN PRN Reason: Wheezing Last Admin: 03/09/25 05:21 Dose: 3 ml Documented By: ORTEGA Alprazolam (Alprazolam 0.25 Mg Tablet) 0.25 mg PO TID [facility] Apixaban (Apixaban 2.5 Mg Tablet) 2.5 mg PO BID [facility] [place] Last Admin: 03/09/25 08:49 Dose: 2.5 mg Documented By: RACHEL Aspirin (Aspirin Enteric Coated 81 Mg Tablet.) 81 mg PO DAILY [facility] [place] Last Admin: 03/09/25 08:48 Dose: 81 mg Documented By: RACHEL Atorvastatin Calcium (Atorvastatin Calcium 80 Mg Tablet) 80 mg PO BEDTIME [facility] [place] Last Admin: 03/08/25 19:35 Dose: 80 mg Documented By: KRISTY Benzocaine (Throat Lozenge, Medicated Lozenge) 1 lozenge MUCOUS MEM Q2H PRN PRN Reason: Sore Throat Last Admin: 03/09/25 08:49 Dose: 1 lozenge Documented By: RACHEL Bupropion HCl (Bupropion Hcl Xl 300 Mg Tab.Er.24h) 300 mg PO DAILY [facility] [place] Last Admin: 03/09/25 08:49 Dose: 300 mg Documented By: RACHEL Calcium Carbonate (Calcium Carbonate 750 Mg Tab.Chew) 750 mg PO Q4H PRN PRN Reason: Heartburn Last Admin: 03/09/25 00:47 Dose: 750 mg Documented By: KRISTY Cyanocobalamin (Cyanocobalamin (Vitamin B-12) 1,000 Mcg Tablet) 1,000 mcg PO DAILY [facility] [place] Last Admin: 03/09/25 08:49 Dose: 1,000 mcg Documented By: RACHEL Doxycycline Monohydrate (Doxycycline Monohydrate 100 Mg Capsule) 100 mg PO Q12H [facility] Last Admin: 03/09/25 13:00 Dose: 100 mg Documented By: RACHEL Fluticasone Propionate (Fluticasone Propionate Nasal 16 Gm [place]) 2 spray NOSTRIL-B DAILY [facility] [place] Last Admin: 03/09/25 08:50 Dose: 2 spray Documented By: RACHEL Gabapentin (Gabapentin 300 Mg Capsule) 600 mg PO TID [facility] [place] Last Admin: 03/09/25 08:49 Dose: 600 mg Documented By: RACHEL Guaifenesin/Dextromethorphan (Guaifenesin Dm 600/30 1 Tab Tab.Er.12h) 1 tab PO BID PRN PRN Reason: Cough Last Admin: 03/09/25 08:48 Dose: 1 tab Documented By: RACHEL Guaifenesin/Dextromethorphan (Guaifenesin Dm 100/10/5 Ml 5 Ml Syrup) 5 ml PO Q4H PRN PRN Reason: Cough Last Admin: 03/09/25 13:00 Dose: 5 ml Documented By: RACHEL Levalbuterol HCl (Levalbuterol Hcl 1.25 Mg/3 Ml Vial.Neb) 1.25 mg INHALE RQ4H WHILE AWAKE [facility] [place] Last Admin: 03/09/25 11:19 Dose: 1.25 mg Documented By: ORTEGA Lidocaine (Lidocaine 4 % Patch Adh..Patch) 1 patch TRANSDERMA DAILY [facility] [place]; Protocol Last Admin: 03/09/25 08:50 Dose: 1 patch Documented By: RACHEL Loratadine (Loratadine 10 Mg Tablet) 10 mg PO DAILY [facility] [place] Last Admin: 03/09/25 08:49 Dose: 10 mg Documented By: RACHEL Magnesium Hydroxide (Milk Of Magnesia 30 Ml Oral.Susp) 30 ml PO DAILY PRN PRN Reason: Constipation Melatonin (Melatonin 3 Mg Tablet) 6 mg PO BEDTIME PRN PRN Reason: Insomnia Last Admin: 03/08/25 22:55 Dose: 6 mg Documented By: KRISTY Methylprednisolone Sodium Succinate (Methylprednisolone Sod Succ 125 Mg Vial) 60 mg IVPUSH Q6H [facility] Last Admin: 03/09/25 13:00 Dose: 60 mg Documented By: RACHEL Omeprazole (Omeprazole 20 Mg Capsule.Dr) 20 mg PO BID@0630,1630 [facility] Last Admin: 03/09/25 05:14 Dose: 20 mg Documented By: KRISTY Oxycodone HCl (Oxycodone Hcl Immed Release 5 Mg Tablet) 5 mg PO Q4H PRN PRN Reason: Pain, Moderate(Pain Scale 4-6) Last Admin: 03/09/25 13:00 Dose: 5 mg Documented By: RACHEL Pseudoephedrine HCl (Pseudoephedrine Hcl 30 Mg Tablet) 30 mg PO Q4H PRN PRN Reason: Nasal Congestion Last Admin: 03/09/25 08:49 Dose: 30 mg Documented By: RACHEL Sodium Chloride (0.9 % Sodium Chloride Flush 3 Ml Syringe) 3 ml IVFLUSH QSHIFT [facility] [place] Last Admin: 03/09/25 08:50 Dose: 3 ml Documented By: RACHEL Tamsulosin HCl (Tamsulosin Hcl 0.4 Mg Capsule) 0.4 mg PO DAILY [facility] Last Admin: 03/09/25 08:49 Dose: 0.4 mg Documented By: RACHEL Tramadol HCl (Tramadol Hcl 50 Mg Tablet) 50 mg PO BID PRN PRN Reason: Pain, Moderate(Pain Scale 4-6) Last Admin: 03/09/25 08:49 Dose: 50 mg Documented By: RACHEL Labs 03/03/25 06:43 03/04/25 06:32 Assessment and Plan (1) Acute hypoxic respiratory failure: Status: Acute (2) Acute exacerbation of chronic obstructive pulmonary disease: Status: Acute Plan 64yo F with COPD not on home O2, hx cerebral aneurysm s/p endovascular intervention, hx CVA, L subclavian artery occlusion s/p bypass now on apixaban, HLD, BPH presenting with worsening dyspnea and cough over the last few weeks, admitted for COPD exacerbation with hypoxia 1.Acute hypoxic respiratory failure due to COPD exacerbation - IV methylprednisolone; we will give 125 at this a.m. and go 60 q.6 continue due to minimal response -doxycycline (6) -overnight O2 study; will likely need CPAP at night 2.Frequent PVCs - continue telemetry - K/Mg normal 3.AVN L femoral head - had [facility] for R femoral AVN in 2022; has outpt Ortho consultation for L in March 23.Hx subclavian artery occlusion - apixaban as ordered Apixaban Full Code dispo - STR vs home with VNA; PT following and should re-evaluate in AM In my clinical judgment, the patient requires continued inpatient hospitalization for the following reasons: hypoxia Quality Stroke Does the patient have a stroke diagnosis?: No VTE Prior VTE?: No VTE Risk Level:: Medical - moderate - high VTE Device Contraindication: Treatment Not Indicated VTE Drug Contraindication: N/A - Med Ordered
[2025-03-09] MEDS: ALPRAZolam 0.25 MG TABLET PO (15:38)
[2025-03-09] MEDS: Atorvastatin Calcium 80 MG TABLET PO (19:55)
[2025-03-10] MEDS: traMADoL HCL 50 MG TABLET PO ×2 (00:03→09:41)
[2025-03-10] MEDS: ALPRAZolam 0.25 MG TABLET PO ×2 (00:03→09:41)
[2025-03-10] MEDS: Doxycycline Monohydrate 100 MG CAPSULE PO ×2 (00:03→12:17)
[2025-03-10] MEDS: Throat Lozenge, Medicated LOZENGE 1 LOZENGE MUCOUS MEM ×2 (00:23→09:40)
[2025-03-10 03:33] VITALS: BP 146/83; PULSE 84; RESP 18; TEMP 36.4; O2SAT 92
[2025-03-10] MEDS: oxyCODONE HCl Immed Release 5 MG TABLET PO ×2 (04:38→12:19)
[2025-03-10] MEDS: Omeprazole 20 MG CAPSULE.DR PO (05:26)
[2025-03-10 07:02] VITALS: BP 134/63; PULSE 87; RESP 20; TEMP 36.8; O2SAT 91
[2025-03-10 07:12] LABS: Basophils Percent Auto 0.1 % (0-2); Hematocrit 37.2 % (42.0-52.0); Hemoglobin 13.3 g/dl (14.0-18.0); Imm Gran Abs Auto 0.23 X10*3/uL (0.00-0.03); Imm Gran Pct Auto 1.1 % (0.0-0.4); Lymphocytes Absolute Auto 0.5 X10*3/uL (1.2-4.9); Lymphocytes Percent Auto 2.4 % (20-40); MANUAL DIFF FLAG SCAN; Mean Corpuscular HGB Conc 35.8 g/dl (31.0-36.0); Mean Corpuscular Volume 95.1 fL (80.0-98.0); Mean Platelet Volume 9.4 fL (9.4-12.4); Monocytes Absolute Auto 0.7 X10*3/uL (0.1-1.2); Monocytes Percent Auto 3.2 % (2-11); Neutrophils Absolute Auto 19.3 x10*3/uL (2.0-8.3); Neutrophils Percent Auto 93.2 % (45-73); Platelet Count 267 X10*3/uL (160-400); Red Blood Count 3.91 X10*6/uL (4.60-5.80); Red Cell Distribution Width 14.5 % (11.0-16.0); SCAN SMEAR FLAG 1; White Blood Count 20.7 X10*3/uL (4.8-10.8)
[2025-03-10] MEDS: levalbuterol HCL 1.25 MG/3 ML VIAL.NEB INHALE ×2 (07:31→11:22)
[2025-03-10 07:32] VITALS: PULSE 89; RESP 20; O2SAT 92
[2025-03-10 07:35] LABS: Alanine Aminotransferase 20 U/L (0-40); Albumin Level 3.4 g/dL (3.5-5.0); Alkaline Phosphatase 79 U/L (39-117); Anion Gap 11 (12-20); Aspartate Amino Transferase 18 U/L (5-37); Bilirubin Total 0.3 mg/dL (0.0-1.0); Blood Urea Nitrogen 16 mg/dL (9-16); Calcium 8.8 mg/dL (8.4-10.2); Carbon Dioxide 26 mmol/L (22-29); Chloride 104 mmol/L (96-108); Estimated Glomerular Filt Rate > 60; Glucose Fasting 148 mg/dL (60-99); Potassium 4.5 mmol/L (3.3-5.1); Sodium 136 mmol/L (135-145); Total Protein 5.7 g/dL (6.5-8.0)
[2025-03-10 07:42] LABS: SLIDE REVIEW VERIFIED
[2025-03-10] MEDS: Loratadine 10 MG TABLET PO (09:40)
[2025-03-10] MEDS: Cyanocobalamin (Vitamin B-12) 1,000 MCG TABLET 1000 MCG PO (09:41)
[2025-03-10] MEDS: Tamsulosin HCL 0.4 MG CAPSULE PO (09:41)
[2025-03-10] MEDS: Apixaban 2.5 MG TABLET PO (09:41)
[2025-03-10] MEDS: buPROPion HCl XL 300 MG TAB.ER.24H PO (09:41)
[2025-03-10] MEDS: Gabapentin 300 MG CAPSULE 600 MG PO (09:41)
[2025-03-10] MEDS: Aspirin Enteric Coated 81 MG TABLET.DR PO (09:41)
[2025-03-10] MEDS: Lidocaine 4 % Patch ADH..PATCH 1 PATCH TRANSDERMA (09:42)
[2025-03-10] MEDS: 0.9 % Sodium Chloride Flush 3 ML SYRINGE IVFLUSH (09:45)
[2025-03-10] MEDS: Fluticasone Propionate Nasal 16 GM SPRAY 2 SPRAY NOSTRIL-B (09:51)
[2025-03-10 11:08] VITALS: BP 113/59; PULSE 86; RESP 20; TEMP 36.6; O2SAT 93
[2025-03-10 11:25] VITALS: PULSE 88; RESP 20; O2SAT 92
--- NOTE | 2025-03-10 11:59 | PM.DS ---
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 who presents to the ED with two primary complaints: worsening SOB and head/neck pain since this morning. Reports has been having difficulty breathing and SOB for the past few months, worsening in the past few weeks. Pt a long-time smoker reports quit smoking around 3 weeks ago. Has been using home inhalers and nebulizers to little effect. Occasional, chronic nonproductive cough around baseline. This morning SOB appeared worse than prior. EMS found pt satting in the 80s and appeared in respiratory distress, and pt was placed on CPAP at 94%. However, pt reports primarily called EMS due to sudden onset neck spasms/pain and headaches upon waking this morning. pt reports has intermittent neck spasms that radiate up his neck. Complains of pain in the back of his head and radiates to the front. Reports of some blurriness in his vision when pain is intense, but no prolonged vision changes. Has been unable to move his neck from side to side or up and down. Denies similar symptoms in the past. Pt does note that he often becomes tremulous after albuterol and nebulizer use. Pt reports for the past 6 months has also been experiencing left hip pain and reduced mobility secondary to pain. Has become much more sedentary. Has a hx of of right [place] 12/02/[address] Mobley. Presented to a walk-in clinic yesterday where he received left hip x-ray which showed avascular necrosis of left femoral head with mild articular collapse. In the ED pt was tachycardic up to 108, tachypneic up to 26, and initially found desatting to the 80s on RA, currently 89-91% on 4L NC. Labs were significant for mild normocytic anemia of 13.4/36.7, and sodium 130. No leukocytosis. Renal function WNL. Hepatic function WNL. Troponin negative. BNP WNL. VBG reassuring with pH 7.39, pCO2 33, and bicarb mildly low at 20. Tested negative for flu, COVID, RSV. CXR showed no acute findings. EKG demonstrated sinus rhythm with frequent PVCs. Pt was treated in the ED with DuoNebs, Solu-Medrol, Mag sulfate, cyclobenzaprine, and fentanyl. Pt is admitted to the hospital for treatment and further evaluation of acute hypoxic respiratory failure in the setting of COPD exacerbation.\ Hospital course Patient admitted to telemetry where monitor failed to demonstrate any acute dysrhythmias. He was initially started on IV Solu-Medrol daily along with IV doxycycline. His respiratory status would wax and wane over the next 72 hours. When examined on the morning of the , he was found to have dense expiratory wheezes and was given 125 of Solu-Medrol following that was 60 mg IV q.6 hours. Aggressive pulmonary toilet with DuoNebs. Over the course of the next several days his breathing improved markedly to the point where he could ambulate in hallway without O2 requirement. He did have an overnight oximetry which did show changes that warrant a CPAP/sleep study as outpatient. Respiratory has ordered a condenser for overnight oxygenation. At this point in time he is medically acceptable to be discharged to complete a prednisone taper (finished complete course of antibiotics in-house) and follow up with PCP next available Time Attestation Discharge Coordination Time (in mins): 35 Quality: Safe Use of Opioids Does Pt have an Active Cancer Diagnosis on the Problem List?: No Quality: Stroke Does the patient have a stroke diagnosis?: No Physical Exam Vital Signs: Vital Signs: Last Vital Signs Temp 97.9 F 03/10/25 11:08 Pulse 88 03/10/25 11:25 Resp 20 03/10/25 11:25 BP 113/59 L 03/10/25 11:08 Pulse Ox 93 03/10/25 11:08 O2 Del Method Nasal Cannula 03/10/25 11:08 O2 Flow Rate 3 03/10/25 11:08 Oxygen Flow Rate 7 03/03/25 06:26 BMI result Body Mass Index 31.0 Const: Other: Awake alert no acute distress Resp: Other: Diminished at bases with worsening of scattered expiratory wheezes Cardio: Other: No S4; positive S1-S2; no S3 murmurs rubs or gallops GI: Other: Soft nontender nondistended normoactive bowel sounds Extrem: Other: No edema bilaterally DS: Data Data Completed and Pending Completed studies during hospitalization [Text1]: Procedures Replacement of Right Hip Joint with Ceramic Synthetic Substitute, Uncemented, Open Approach (12/02/23) Labs on day of discharge: Laboratory Results - last 24 hr 03/10/25 06:51 WBC 20.7 H RBC 3.91 L Hgb 13.3 L Hct 37.2 L MCV 95.1 MCH 34.0 H MCHC 35.8 RDW 14.5 Plt Count 267 D MPV 9.4 Immature Gran % (Auto) 1.1 H Neut % (Auto) 93.2 H Lymph % (Auto) 2.4 L Blair % (Auto) 3.2 Eos % (Auto) 0.0 Baso % (Auto) 0.1 Lymph # (Auto) 0.5 L Blair # (Auto) 0.7 Eos # (Auto) 0.0 Baso # (Auto) 0.0 Abs Immat Gran (auto) 0.23 H Absolute Neuts (auto) 19.3 H Absolute Nucleated RBC 0.000 Nucleated RBC % (auto) 0.0 Smear Tech's Comments VERIFIED Sodium 136 Potassium 4.5 Chloride 104 Carbon Dioxide 26 Anion Gap 11 L BUN 16 Creatinine 0.59 Estim Creat Clear Calc 136.0 Estimated GFR > 60 Fasting Glucose 148 H Calcium 8.8 Total Bilirubin 0.3 AST 18 ALT 20 Alkaline Phosphatase 79 Total Protein 5.7 L Albumin 3.4 L Discharge Plan Discharge Anticipated Discharge Date/Time: 03/10/25 11:47 Patient Disposition: Home Health Service Discharge Diagnosis: Acute COPD exacerbation Referrals: Zuri Feldman MD [Primary Care Provider] - 1 Week Discharge Medications: New prednisone 10 mg tablet See Rx Instructions .Route .COMPLEX Qty: 45 0RF Rx Instructions: 10 mg orally; 5 tabs p.o. daily x3 days; 4 tabs p.o. daily x3 days; 3 tabs daily x3 days; 2 tabs daily x3 days; 1 tab daily x3 days oxycodone 5 mg tablet 5 mg PO Q6H PRN (Reason: pain) Qty: 20 0RF Rx Instructions: Partial Fill upon patient request. Continued (DME) shower chair See Rx Instructions .Route .MEDSUPPLY Qty: 1 0RF Rx Instructions: As directed (DME) WALKER See Rx Instructions .Route .MEDSUPPLY Qty: 1 0RF Rx Instructions: As directed fluticasone propionate 50 mcg/actuation spray,suspension 2 spray intranasal DAILY Qty: 3 3RF Rx Instructions: administer into each nostril atorvastatin 80 mg tablet 80 mg PO BEDTIME Qty: 90 2RF gabapentin 300 mg capsule 600 mg PO TID 90 Days Qty: 540 1RF aspirin 81 mg tablet,delayed release (DR/EC) 81 mg PO DAILY Qty: 90 0RF omeprazole 20 mg capsule,delayed release(DR/EC) 20 mg PO BID@0630,1630 Qty: 180 0RF cyanocobalamin (vitamin B-12) 1,000 mcg capsule 1,000 mcg PO DAILY Qty: 90 0RF albuterol sulfate 2.5 mg /3 mL (0.083 %) solution for nebulization 2.5 mg inhalation QID PRN (Reason: shortness of breath or wheezing) 30 Days Qty: 180 3RF albuterol sulfate 90 mcg/actuation HFA aerosol inhaler 2 puff inhalation Q4H PRN (Reason: shortness of breath or wheezing) 30 Days Qty: 8.5 3RF alprazolam 0.25 mg tablet 0.25 mg PO BEDTIME PRN (Reason: anxiety) Qty: 20 0RF acetaminophen 325 mg Tablet 650 mg PO Q6H PRN (Reason: Pain, Mild (Pain Scale 1-3)) 30 Days Qty: 240 0RF ipratropium-albuterol 0.5 mg-3 mg(2.5 mg base)/3 mL solution for nebulization 3 ml INHALATION Q4H PRN (Reason: Shortness Of Breath Or Wheezing) Eliquis 2.5 mg tablet 2.5 mg PO BID bupropion HCl [Wellbutrin SR] 150 mg tablet sustained-release 12 hr 150 mg PO BID Qty: 180 1RF Incruse Ellipta 62.5 mcg/actuation blister with device 1 inh inhalation DAILY 30 Days Qty: 30 4RF dutasteride 0.5 mg capsule 0.5 mg PO DAILY 90 Days Qty: 90 1RF tamsulosin 0.4 mg capsule 0.4 mg PO DAILY 90 Days Qty: 90 1RF tramadol 50 mg tablet 50 mg PO BID PRN (Reason: pain) 30 Days Qty: 30 0RF Discharge Orders: Discharge Order (Routine); Ordered 03/10/25 Ordered By: Jesse Doshi Diet: Advance to usual diet Activity on Discharge: As tolerated Stand Alone Forms: Patient Portal Discharge page Print Language: Citizen Of [place] Care Plan Goals: Resume all meds as taken prior to hospital. You completed a full course of antibiotics and therefore do not need any on discharge. Prednisone taper has been called in. Take as ordered Health Concerns: Follow up with your PCP next available Plan of Treatment: Discuss sleep study with PCP. Use O2 at night as advised Assessment: See discharge summary
--- NOTE | 2025-03-10 12:16 | MHC.CM.PN ---
Patient has been medically cleared for dc to home today, with services. [facility] has accepted Patient and he is in agreement;[facility] has been notified of today's dc. IMM was addressed with Patient today at bedside and original was given to him and a copy has been placed on the chart.
--- NOTE | 2025-03-10 13:05 | P.F2F_ITS ---
Service Date Service Date: 03/10/25 Encounter Date of encounter: 03/10/25 Encounter: Acute hospitalization Reasons for Services Signs and symptoms assessed: Assess respiratory status and med management Reason for residential: medication management and other (Assess respiratory status) Reason for physical therapy: therapeutic exercises and gait/transfer training Homebound: Leaving the home is medically contraindicated at this time without the asist of a device and/or another person due th the listed conditions above and below. Reason homebound: unsteady gait / fall risk and unable to drive Certification: Based on the above findings, I certify that this patient is confined to the home and needs intermittent residential care, physical therapy and/or speech therapy, or continues to need occupational therapy. The patient is under my care, and I have initiated the establishment of the plan of care. The patient will be followed by a physician who will periodically review the plan of care. Time Spent With Patient Time: Total time managing care of this patient today ____ minutes.
== END 2025-03-10 13:37 | disposition home health service (06) | DRG 190 ==
LOC: HO.ED 08:25 → HO.EDOVER 08:44 → HO.S3 11:15 → HO.IMC 13:56
PROVIDERS: Emergency Medicine; Admitting Provider Student in an Organized Health Care Education/Training Program; Emergency Provider Emergency Medicine; PCP Internal Medicine; Visit Provider Hospitalist
DX: J44.1 Chronic obstructive pulmonary disease with (acute) exacerbation (principal); J96.01 Acute respiratory failure with hypoxia; E87.1 Hypo-osmolality and hyponatremia; M87.852 Other osteonecrosis, left femur; D64.9 Anemia, unspecified; I49.3 Ventricular premature depolarization; N40.0 Benign prostatic hyperplasia without lower urinary tract symptoms; F39 Unspecified mood [affective] disorder; Z86.73 Personal history of transient ischemic attack (TIA), and cerebral infarction without residual deficits; Z87.891 Personal history of nicotine dependence; Z20.822 Contact with and (suspected) exposure to COVID-19; Z79.01 Long term (current) use of anticoagulants; Z79.51 Long term (current) use of inhaled steroids; Z79.82 Long term (current) use of aspirin; Z79.899 Other long term (current) drug therapy
CPT/HCPCS: 0241U; 36415; 70450; 71045; 73502; 80048; 80053; 80076; 81003; 82803; 83605; 83690; 83735; 83880; 84145; 84484; 85025; 87040; 93005; 94640; 97162; 97530; 99285; J2270; J2919; J3010; J3475

== ENCOUNTER → 2025-03-03 06:24 | Outpatient (BNV) | payer MEDICARE, SELFPAY | PROVIDERS: Emergency Provider Emergency Medicine; PCP Internal Medicine; Visit Provider Internal Medicine Cardiovascular Disease | DX: I49.3 Ventricular premature depolarization (principal); R00.0 Tachycardia, unspecified | CPT/HCPCS: 93010 ==

== ENCOUNTER → 2025-03-03 06:24 | Outpatient (BNV) | payer MEDICARE, SELFPAY | PROVIDERS: Emergency Provider Emergency Medicine; PCP Internal Medicine; Visit Provider Specialist | DX: R51.9 Headache, unspecified (principal); R06.02 Shortness of breath | CPT/HCPCS: 70450; 71045 ==

== ENCOUNTER → 2025-03-03 08:41 | Outpatient (BNV) | payer MEDICARE, SELFPAY | PROVIDERS: Admitting Provider Student in an Organized Health Care Education/Training Program; Emergency Provider Emergency Medicine; PCP Internal Medicine; Visit Provider Student in an Organized Health Care Education/Training Program | DX: J96.01 Acute respiratory failure with hypoxia (principal); J44.1 Chronic obstructive pulmonary disease with (acute) exacerbation | CPT/HCPCS: 99223; 99232; 99239; G0180 ==

== ENCOUNTER 2025-03-17 14:11 | Outpatient (AMB) | payer MEDICARE, SELFPAY ==
--- NOTE | 2025-03-17 14:15 | MHC.OFFVIS ---
Vital Signs 03/17/25 14:16 Height 5 ft 9 in BP 124/72 Blood Pressure Location Lt brachial Position Sitting Pulse 90 Pulse Source Pulse Oximeter Pulse Oximetry (%) 95 Oxygen Delivery Method Room Air Intake Visit Reasons: copd Intake Note: pt is here for follow up from and states he is waking up at 4 am gasping for air, even on 3 liters. Call Center Dispatcher Required: No Allergies divalproex sodium [Depakote] Allergy (Unknown, Verified 03/17/25 14:49) Unknown rosuvastatin Allergy (Unknown, Verified 03/17/25 14:49) SOB finasteride Allergy (Intermediate, Uncoded 03/17/25 14:49) Hives Medication List - Last Reconciled 03/17/25 by Rey Oneil MD [shower chair As directed] acetaminophen 650 mg (2 x 325 mg) PO Q6H PRN 30 days albuterol sulfate 2.5 mg (3 mL) inhalation QID PRN 30 days albuterol sulfate 90 mcg/actuation 2 puffs inhalation Q4H PRN 30 days alprazolam 0.25 mg PO BEDTIME PRN apixaban (Eliquis) 2.5 mg PO BID aspirin 81 mg PO DAILY atorvastatin 80 mg PO BEDTIME bupropion HCl SR (Wellbutrin SR) 150 mg PO BID cyanocobalamin (vitamin B-12) 1,000 mcg PO DAILY dutasteride 0.5 mg PO DAILY 90 days fluticasone propionate 50 mcg/actuation 2 sprays intranasal DAILY gabapentin 600 mg (2 x 300 mg) PO TID 90 days ipratropium-albuterol 0.5 mg-3 mg(2.5 mg base)/3 mL 3 mL inhalation Q4H PRN omeprazole 20 mg PO BID@0630,1630 oxycodone 5 mg PO Q6H PRN prednisone 10 mg orally; 5 tabs p.o. daily x3 days; 4 tabs p.o. daily x3 days; 3 tabs daily x3 days; 2 tabs daily x3 days; 1 tab daily x3 days tamsulosin 0.4 mg PO DAILY 90 days tramadol 50 mg PO BID PRN 30 days umeclidinium 62.5 mcg/actuation (Incruse Ellipta) 1 inh inhalation DAILY 30 days [WALKER As directed] Do you need a note to return to daycare/school/sports/work: No HPI HPI copd: Details: 64-year-old male with a PMH significant for COPD not on home O2, H/O of cerebral aneurysm status percutaneous endovascular procedure, CVA, left subclavian artery occlusion s/p bypass on Eliquis, HLD, BPH, and general NSTEMI anxiety disorder? Presented to ER on 03/03 with two primary complaints: worsening SOB and head/neck pain He was admitted and treated in the hospital for about 1 week for an acute exacerbation of COPD. Discharge home to use O2 3 L/minute at night. And p.r.n. during the daytime. He has painful left hip and has difficulty in walking. This is related to his previous diagnosis of avascular necrosis of the left femoral head. At some point he is going to need left hip replacement. He follows up with Dr. Mobley. Since discharge home on , he is on tapering dose of prednisone. Has been using his DuoNeb updrafts, along with Incruse Ellipta once a day. He is on oxygen 3 L/minute at night. Still wakes up around 3-4 o'clock gasping for breathing. Patient is also scheduled for outpatient home sleep study. Today he comes to the office in a scooter because he has hard time. in standing and walking His main complaint is fullness in the throat and neck, also has difficulty in swallowing. He is scheduled to have an upper GI series. He does have some fullness in the left side of the neck, where he has had previous surgery. [facility] Medical History COPD with acute exacerbation Somnolence, daytime SOB (shortness of breath) Atelectasis of left lung Anxiety Smoker Pharyngitis COPD (chronic obstructive pulmonary disease) Osteoarthritis of right hip Arthritis Abdominal hernia Numbness Habitual snoring COPD (chronic obstructive pulmonary disease) Tinea cruris Pes anserinus bursitis of left knee Upper respiratory tract infection Rib fractures Annual physical exam Contusion of chest Back strain Osteoarthritis of right hip Right hip pain Right middle lobe pulmonary infiltrate Sinus congestion Overweight (BMI 25.0-29.9) Urgency of micturition Carpal tunnel syndrome Femoral fracture Pulmonary nodule BPH (benign prostatic hyperplasia) Seizure disorder Insomnia Vitamin D deficiency Impaired glucose tolerance Hypercholesterolemia GERD (gastroesophageal reflux disease) Polysubstance abuse Left subclavian artery occlusion Brain aneurysm CVA (cerebral vascular accident) Vocal cord polyp Vitamin B12 deficiency Surgical History History of nasal surgery H/O colonoscopy Stenosis of subclavian bypass History of surgery History of orthopedic surgery History of knee replacement procedure of right knee Family History Father CAD (coronary artery disease) Kidney malignancy Mother Myocardial infarction Brother Prostate cancer Social History Household Members: Other Household Members Other:: roomate Housing: Other Housing Other:: mobile home Are you a primary patient care technician instructor to a significant other at home: No Do you presently have visiting nurse or other home services: No 75 years or older and lives alone: No Unable to assess alcohol history related to: Unknown Alcohol intake: current Alcohol intake frequency: 3 or more drinks per day Alcohol type: beer Comment: 4 drinks last night Patient Tobacco Use Status: Former Tobacco user Tobacco use type: Cigarette Cigarette Packs Per Day: 5 Cigarettes Per Day: 0.25 Years Smoked: 55 e-Cigarette/Vaping Use: Never Used Second Hand Smoke Exposure: No Substance Use Type: Marijuana service: No Current occupational status: unemployed Cognitive needs: Yes (Cane) Hearing needs: No Vision needs: Yes Review of Systems Const All systems reviewed & are unremarkable except as noted in HPI and below Eyes Reports no additional complaints ENT Reports no additional complaints Card Denies chest pain, Denies irregular heart rhythm and Denies leg edema Resp Reports as per HPI GI Reports constipation and Reports heartburn Reports no additional complaints Musc Reports arthralgias (HIPS) Skin/Breast Reports system reviewed and no additional complaints, except as documented Neuro Reports no additional complaints Psych Reports no additional complaints Endo Reports no additional complaints Sarkis/Lymph Reports no additional complaints Physical Exam Vital Signs: Last Vital Signs Pulse 90 03/17/25 14:16 BP 124/72 03/17/25 14:16 Pulse Ox 95 03/17/25 14:16 Oxygen Delivery Method Room Air 03/17/25 14:16 Const General: comfortable, no acute distress, alert and awake Orientation/consciousness: patient oriented x3 HEENT Head: Yes normal to inspection General nose exam: No nasal polyps present and No nasal discharge present Face and sinus: Yes sinuses nontender Mouth: oropharynx normal (ON THIS VISIT I DO NOT SEE ANY ERYTHEMA OR SWELLING OR ULCERS IN HIS MOUTH.) Throat: Yes posterior oropharynx normal Eyes General: appearance normal, both eyes and all related structures Neck Other: SCAR ON THE LEFT SIDE FROM PREVIOUS CAROTID ENDARTERECTOMIES RECENT REVISION OF THE SURGERY. Neck: Yes normal visual inspection, Yes no lymphadenopathy, Yes trachea midline and Yes no JVD Thyroid: Thyroid normal Chest Chest palpation & inspection: normal inspection of the chest (HIS SURGICAL SCAR IN THE LEFT PECTORAL AREA FROM RECENT VASCULAR SURGERY), normal palpation of entire chest wall and no tenderness Resp Other: PERCUSSION NOTE IS RESONANT, BREATH SOUNDS ARE DISTANT AND ESPECIALLY DECREASED OVER THE BASILAR AREAS NO CREPITATIONS OR WHEEZES ARE HEARD TODAY . Cardio Palpation: normal PMI Rate: regular rate Rhythm: regular rhythm Heart sounds: no gallops and no murmurs GI Palpation (GI): Soft to palpation, nontender, No hepatosplenomegaly present and no masses Auscultation: normal bowel sounds Back/Spine/Pelvis Thoracic/Lumbar Spine: thoracic and lumbar spine normal to inspection Skin General skin exam: no rashes or lesions noted Neuro General: patient oriented x3 and no focal motor deficits Cranial nerves: Yes CN's II-XII intact bilaterally Extrem Other: He has the discomfort over the left hip, . Especially on standing and walking Today he is non ambulatory and comes to the office in a scooter. General: Yes normal to inspection, Yes no clubbing, cyanosis or edema and Yes no calf tenderness Psych Appearance: grossly normal and well kempt Speech and movement: Normal speech and movement present Results Reviewed Results Reviewed: Notes from his recent hospitalization were reviewed Assessment & Plan Assessment & Plan (1) COPD (chronic obstructive pulmonary disease): Comment: PATIENT HAS MODERATE DEGREE OF CHRONIC OBSTRUCTIVE PULMONARY DISEASE. Explained that his chronic cough and shortness of breath on exertion is secondary to COPD. HE CONTINUES TO HAVE FEELING OF OBSTRUCTION IN THE UPPER AIRWAYS, WHICH MAKES HIM JESUS BUT CAN NOT BRING UP MUCH PHLEGM. HE IS GOING TO HAVE UPPER GI SERIES. I THINK HE SHOULD HAVE BRONCHOSCOPY TO CHECK AND MAKE SURE THERE IS NO OBSTRUCTIVE LESION IN THE UPPER AIRWAYS. Code(s): J44.9 - Chronic obstructive pulmonary disease, unspecified Category: Medical Qualifiers: COPD type: emphysema Emphysema type: unspecified Qualified Code(s): J43.9 - Emphysema, unspecified Plan: CONTINUE USING INCRUSE ELLIPTA 1 INHALATION DAILY IPRATROPIUM-ALBUTEROL SOLUTION IN THE NEBULIZER Q4- 6 HOURS P.R.N. ALBUTEROL HFA 2 PUFFS Q 4-6 HOURS P.R.N. WHEN OUTDOORS I WILL REFER HIM FOR BRONCHOSCOPIC EXAMINATION BY DR. MORGAN . HAVE EXPLAINED TO THE PATIENT IN DETAIL ABOUT THIS PROCEDURE. (2) Acute hypoxic respiratory failure: Comment: PATIENT WAS TREATED FOR ACUTE EXACERBATION OF COPD AND AT THAT TIME HE WAS NOTED TO BE HYPOXEMIC. HE DOES HAVE O2 CONCENTRATOR AT HOME AND USES O2 3 L/MINUTE AT NIGHT ALSO USES P.R.N. DURING THE DAYTIME. Code(s): J96.01 - Acute respiratory failure with hypoxia Category: Medical Plan: CONTINUE TO USE O2 3 L/MINUTE AT NIGHT , USE P.R.N. DURING THE DAYTIME. Coding Level of Care Code Est Pt Level 4 (85647) Diagnoses Pulmonary emphysema, unspecified emphysema type J43.9 COPD type: emphysema Emphysema type: unspecified Acute hypoxic respiratory failure J96.01
[2025-03-17 14:16] VITALS: BP 124/72; PULSE 90; O2SAT 95
--- OUTSIDE RECORDS SUMMARY | 2025-03-17 14:22 | XMS_ITS | Clinical Summary ---
Author Organization [employer] Address [address] [facility] [address] [place] [address] Care Team Providers Care Loft Rigger Name Role Phone Unavailable Primary Care Provider [...] patient's age to complete this topic Meningococcal B Vaccine Aged Out No l onger eligible based on patient's age to complete [...] topic Insurance DENTAL - HSN FULL (MEDICAID) [place] [id number] [place] [id number]
== END 2025-03-17 14:51 | disposition home or self-care (01) ==
LOC: HO.HPS 14:12
PROVIDERS: PCP Internal Medicine; Visit Provider Internal Medicine
DX: J43.9 Emphysema, unspecified (principal); J96.01 Acute respiratory failure with hypoxia
CPT/HCPCS: 99214

== ENCOUNTER → 2025-03-17 14:11 | Outpatient (BNVA) | payer MEDICARE, SELFPAY | PROVIDERS: PCP Internal Medicine; Visit Provider Internal Medicine | DX: J43.9 Emphysema, unspecified (principal); J96.01 Acute respiratory failure with hypoxia | CPT/HCPCS: 99212 ==

== ENCOUNTER → 2025-03-18 23:59 | Outpatient (BNV) | payer MEDICARE, SELFPAY | PROVIDERS: PCP Internal Medicine; Visit Provider Internal Medicine | DX: J44.1 Chronic obstructive pulmonary disease with (acute) exacerbation (principal); J96.01 Acute respiratory failure with hypoxia; F41.9 Anxiety disorder, unspecified | CPT/HCPCS: G0180 ==

== ENCOUNTER 2025-03-21 12:41 | Inpatient (IN) | payer MEDICARE, SELFPAY ==
[2025-03-21] VITALS (11 sets, daily range): BP systolic 139–205; BP diastolic 68–94; PULSE 70–120; RESP 14–30; TEMP 36.4–36.9; O2SAT 90–100; BMI 28.6
--- NOTE | ~2025-03-21 | CT_ITS ---
EXAMINATION: CT CHEST WITH CONTRAST CLINICAL INFORMATION: Dyspnea COMPARISON: January 27, 2025 TECHNIQUE: Multidetector volumetric CT imaging of the chest was obtained after the administration of 65 mL of Omnipaque 350 intravenous contrast without immediate adverse reactions. Axial MIP volume rendering provided. Sagittal and coronal reformatted images were obtained. This CT examination was performed using dose optimization techniques as appropriate, variously including the following: *Automated exposure control *Adjustment of mA and/or kV according to patient size (this includes techniques or standardized protocols for targeted exams where dose is matched to indication/reason for exam; i.e. extremities or head) *Use of iterative reconstruction technique DLP: 1031 mGY*cm FINDINGS: LUNGS: Large airways are patent. Again noted are changes of bullous emphysema with large bulla throughout the right upper lung zone. There is increasing opacity in the posterior left lower lobe that demonstrates heterogeneous enhancement. There is also trace pleural effusion. Vague groundglass densities are evident in the posterior inferior right lower lobe, increased from the prior. MEDIASTINUM: There is moderate atherosclerotic calcification in the aorta and coronary arteries. There is calcification of the mitral annulus There is borderline cardiomegaly. PLEURA: Trace left pleural effusion is evident. AXILLA: No lymphadenopathy. UPPER ABDOMEN: Date low attenuating lesion in the hepatic dome is too small enteric contrast. There is diffuse fatty change of liver. There is a hiatal hernia extending to the mid body of the stomach. Unchanged. OSSEOUS STRUCTURES: Stable mild superior endplate compression fracture of T6. Moderate to severe degenerative joint disease is noted in the left glenoid humeral joint. CT/CT chest w IV con IMPRESSION: Airspace opacity in the basal left lower lobe is concerning for pneumonia versus decreased blood flow related to chronic atelectasis. Bullous emphysema. Stable chronic mild compression fracture of T6. Extensive coronary artery and aortic calcification. Fleischner guidelines were followed. Electronically signed by: Daniel Causey MD 03/23/2025 04:31 PM EDT
--- NOTE | ~2025-03-21 | CT_ITS ---
CLINICAL HISTORY: sore throat, stridor CT soft tissue neck with contrast Comparison: None Findings: Soft tissues in the nasopharynx and oropharynx are symmetric. Bilateral punctate tonsillar calcifications consistent with previous tonsillitis. Tonsils are nonenlarged. Parapharyngeal fat is preserved. No focal inflammatory stranding or loculated fluid collection. Soft tissues in the floor of the mouth are symmetric. Laryngeal structures grossly within normal limits. Parotid glands and submandibular glands within normal limits. Thyroid is small. Orbital structures and facial soft tissues within normal limits. Small mucous retention cyst/polyp in right maxillary sinus. Atherosclerotic vascular disease and vascular graft in left subclavian vein. Aneurysm clip/coil is demonstrated in the region of the anterior communicating artery. Emphysematous changes in right lung apex with large formation in right posterior upper lobe scarring. No acute fractures. Degenerative changes of the cervical spine especially at C5-6 and C6-7 levels. Minimal grade 1 anterolisthesis at C4-5 and C3-4. IMPRESSION: 1. No acute inflammatory changes in the knee in abscess. Tonsils are nonenlarged. 2. Nonacute findings in the neck, lung apices, intracranial and osseous structures as described. This document has been electronically signed by: Maria Eugenia Foster MD on 03/23/2025 17:31:20
--- NOTE | ~2025-03-21 | XR_ITS ---
EXAMINATION: XR CHEST 1 VIEW HISTORY: dyspnea COMPARISON: Comparison is made with the prior examination dated 03/03/2025. FINDINGS: Two AP portable views of the chest performed at 1:16 PM are submitted. There are emphysematous changes bilaterally with scarring in the right midlung zone. Again seen is elevation of the left hemidiaphragm. There is patchy opacity at the left lung base which may represent atelectasis or pneumonia. There may be an associated trace left pleural effusion. No pneumothorax. The heart is enlarged. The aorta is calcified. There is degenerative disc disease of the spine. XR/XR chest 1V IMPRESSION: Cardiomegaly. COPD. Atelectasis versus pneumonia at the left lung base with a probable associated tiny pleural effusion. Electronically signed by: Basilio Romero MD 03/21/2025 01:30 PM EDT
--- NOTE | 2025-03-21 13:03 | ECG_ITS ---
Test Reason : SOB Blood Pressure : */* mmHG Vent. Rate : 94 BPM Atrial Rate : 94 BPM P-R Int : 136 ms QRS Dur : 80 ms QT Int : 342 ms P-R-T Axes : 54 -13 22 degrees QTcB Int : 427 ms Sinus rhythm with occasional Premature ventricular complexes Otherwise normal ECG When compared with ECG of 03-Mar-2025 14:40, No significant change was found Referred By: Trae Abreu Electronically Signed By: SAMY VERAS
--- NOTE | 2025-03-21 13:03 | ED.SOB ---
HPI - SOB/Dyspnea General Chief Complaint: Dyspnea Stated Complaint: PT STS FEELS LIKE THROAT CLOSING,H/O COPD PER EMS Time Seen by Provider: 03/21/25 12:50 Source: patient and EMS Mode of arrival: EMS Limitations: no limitations History of Present Illness ED Provider: HPI Narrative: 65-year-old male with history of COPD, history of AFib on blood thinners, continues to smoke on oxygen during the night, has been short of breath for the past 2 3 days despite it his medication use at home. When EMS picked him up he told him that he feels like he is choking, he stated that he was not able to clear his throat, I received the [employer] control call, that point there was no report that patient had trismus, and he was phonating with some raspy of the voice, upon his presentation patient we will having some expiratory wheezing but he is non stridorous and able to communicate effectively. Controlling secretions. MD elicited complaint: shortness of breath Related Data Home Medications ?Medication ?Instructions ?Recorded ?Confirmed apixaban 2.5 mg tablet (Eliquis) 2.5 mg PO BID 09/02/24 03/11/25 ipratropium 0.5 mg-albuterol 3 mg 3 ml inhalation Q4H PRN Shortness 03/03/25 03/11/25 (2.5 mg base)/3 mL nebulization Of Breath Or Wheezing soln Previous Rx's ?Medication ?Instructions ?Recorded shower chair #1 ea 04/25/21 WALKER #1 ea 02/14/23 acetaminophen 325 mg tablet 650 mg (2 x 325 mg) PO Q6H PRN 12/03/23 Pain, Mild (Pain Scale 1-3) 30 days #240 tabs fluticasone propionate 50 2 spray intranasal DAILY #3 ea 05/12/24 mcg/actuation nasal spray,suspension atorvastatin 80 mg tablet 80 mg PO BEDTIME #90 tabs 09/03/24 gabapentin 300 mg capsule 600 mg (2 x 300 mg) PO TID 90 days 12/08/24 #540 caps bupropion HCl 150 mg tablet,12 hr 150 mg PO BID #180 tabs 01/11/25 sustained-release (Wellbutrin SR) cyanocobalamin (vitamin B-12) 1,000 mcg PO DAILY #90 caps 01/19/25 1,000 mcg capsule omeprazole 20 mg capsule,delayed 20 mg PO BID@0630,1630 #180 caps 01/19/25 release dutasteride 0.5 mg capsule 0.5 mg PO DAILY 90 days #90 caps 02/15/25 tamsulosin 0.4 mg capsule 0.4 mg PO DAILY 90 days #90 caps 02/15/25 albuterol sulfate 2.5 mg/3 mL 2.5 mg (3 mL) inhalation QID PRN 02/28/25 (0.083 %) solution for nebulization shortness of breath or wheezing 30 days #180 mL albuterol sulfate 90 mcg/actuation 2 puff inhalation Q4H PRN 02/28/25 aerosol inhaler shortness of breath or wheezing 30 days #8.5 grams alprazolam 0.25 mg tablet 0.25 mg PO BEDTIME PRN anxiety #20 02/28/25 tabs tramadol 50 mg tablet 50 mg PO BID PRN pain 30 days #30 03/02/25 tabs oxycodone 5 mg tablet 5 mg PO Q6H PRN pain #20 tabs 03/10/25 prednisone 10 mg tablet See Rx Instructions .Route 03/10/25 .COMPLEX #45 tabs umeclidinium 62.5 mcg/actuation 1 inh PO DAILY #30 ea 03/18/25 blister powder for inhalation (Incruse Ellipta) aspirin 81 mg tablet,delayed 81 mg PO DAILY #90 tabs 03/19/25 release Allergies Allergy/AdvReac Type Severity Reaction Status Date / Time divalproex sodium [Depakote] Allergy Unknown Unknown Verified 03/21/25 12:51 rosuvastatin Allergy Unknown SOB Verified 03/21/25 12:51 finasteride Allergy Intermediate Hives Uncoded 03/21/25 12:51 Review of Systems Constitutional: Constitutional: Reports as per [facility] Past Medical History Medical History COPD with acute exacerbation Somnolence, daytime SOB (shortness of breath) Atelectasis of left lung Anxiety Smoker Pharyngitis COPD (chronic obstructive pulmonary disease) Osteoarthritis of right hip Arthritis Abdominal hernia Numbness Habitual snoring COPD (chronic obstructive pulmonary disease) Tinea cruris Pes anserinus bursitis of left knee Upper respiratory tract infection Rib fractures Annual physical exam Contusion of chest Back strain Osteoarthritis of right hip Right hip pain Right middle lobe pulmonary infiltrate Sinus congestion Overweight (BMI 25.0-29.9) Urgency of micturition Carpal tunnel syndrome Femoral fracture Pulmonary nodule BPH (benign prostatic hyperplasia) Seizure disorder Insomnia Vitamin D deficiency Impaired glucose tolerance Hypercholesterolemia GERD (gastroesophageal reflux disease) Polysubstance abuse Left subclavian artery occlusion Brain aneurysm CVA (cerebral vascular accident) Vocal cord polyp Vitamin B12 deficiency Surgical History History of nasal surgery H/O colonoscopy Stenosis of subclavian bypass History of surgery History of orthopedic surgery History of knee replacement procedure of right knee Family History Family History Father CAD (coronary artery disease) Kidney malignancy Mother Myocardial infarction Brother Prostate cancer Social History Social History Household Members: Other Household Members Other:: roomate Housing: Other Housing Other:: mobile home Are you a primary home care liaison to a significant other at home: No Do you presently have visiting nurse or other home services: No Unable to assess alcohol history related to: Unknown Alcohol intake: current Alcohol intake frequency: a few times a week Alcohol type: beer Comment: 4 drinks last night Patient Tobacco Use Status: Former Tobacco user Tobacco use type: Cigarette Cigarette Packs Per Day: 5 Cigarettes Per Day: 0.25 Years Smoked: 55 Smoked in Last 30 Days: Yes e-Cigarette/Vaping Use: Never Used Second Hand Smoke Exposure: No Use of substances other than those prescribed or required for medical reasons: Yes Substance Use Type: Crack/Cocaine Substance Use Frequency: Occasionally Last Used Substance: Days (ago) Any prior treatment program specific to substance use: No Advance Directives: No Advance Directives Information Provided: Yes Do you have a plan to hurt others: No Plan service: No Current occupational status: unemployed Cognitive needs: Yes (Cane) Hearing needs: No Vision needs: Yes Physical Exam Vital Signs: Vital Signs: Last Vital Signs Temp 97.6 F 03/21/25 16:25 Pulse 70 03/21/25 16:25 Resp 20 03/21/25 16:25 BP 144/68 H 03/21/25 16:25 Pulse Ox 92 03/21/25 16:25 O2 Del Method Room Air 03/21/25 16:25 O2 Flow Rate 2 03/21/25 15:41 BMI result Body Mass Index 28.6 Const: Other: Gen: ?Overall well-appearing patient HEENT: Healing midline, some erythema of the tongue and the pharynx without any evidence for deep space infection, floor of the mouth is soft Neck: Supple, no LAD CV: Regular, I did not appreciate obvious murmurs Resp: ?No stridor, he is moving air well, controlling secretions, expiratory wheezing Abd: ?Bowel sounds are present, no tenderness no rebound no rigidity MSK: FROM, strength 5/5 all extremities Skin: Warm, dry, intact, no lower extremity edema Neuro: ?Alert and oriented x3, moving upper and lower extremities symmetrically, no obvious facial asymmetry noted Medications Administered Discontinued Medications Generic Name Dose Route Start Last Admin Trade Name Freq PRN Reason Stop Dose Admin Ceftriaxone Sodium 2 gm 03/21/25 14:18 03/21/25 14:37 Ceftriaxone Sodium 2 Gm Vial IVPUSH 03/21/25 14:19 2 gm ONCE ONE Administration Albuterol Sulfate 5 mg/ 0 mg 03/21/25 13:33 03/21/25 13:35 Albuterol/Ipratropium 3 ml INHALE 03/21/25 13:34 1 each ONCE ONE Administration Albuterol Sulfate 2.5 mg/ 0 mg 03/21/25 16:03 03/21/25 16:06 Albuterol/Ipratropium 3 ml INHALE 03/21/25 16:04 1 dose ONCE ONE Administration Diazepam 5 mg 03/21/25 15:35 03/21/25 15:51 Diazepam 10 Mg/2 Ml Cartridge IVPUSH 03/21/25 15:36 5 mg STAT STA Administration Fentanyl 50 mcg 03/21/25 14:27 03/21/25 14:36 Fentanyl Citrate/Pf 100 Mcg/2 Ml Vial IVPUSH 03/21/25 14:28 50 mcg ONCE ONE Administration Protocol Fentanyl 50 mcg 03/21/25 15:09 03/21/25 15:21 Fentanyl Citrate/Pf 100 Mcg/2 Ml Vial IVPUSH 03/21/25 15:10 50 mcg ONCE ONE Administration Protocol Sodium Chloride 1,000 mls @ 999 mls/hr 03/21/25 13:15 03/21/25 14:18 Ns IV 03/21/25 14:15 Infused .Q1H1M ODILIA Infusion Sodium Chloride 2,790 mls @ 2,790 mls/hr 03/21/25 14:26 03/21/25 16:00 Ns 30 ml/kg infuse over 1 hr (2790 ml) 03/21/25 15:25 Infused IV Infusion .Q1H STA Methylprednisolone Sodium Succinate 125 mg 03/21/25 13:03 03/21/25 13:21 Methylprednisolone Sod Succ 125 Mg Vial IVPUSH 03/21/25 13:04 125 mg ONCE ONE Administration Medical Decision Making Medical Decision Making MDM Narrative: As far as concern for airway obstruction patient does not have any evidence for angioedema with other differential as below, he is phonating, does not have trismus, I think that he is having some hard time bringing up his sputum and on physical examination he has erythema of the tongue and throat, Davina likely due to inhaled steroids did not feel that he requires further imaging such as CT of the chest or the neck at this time, we will treat for COPD exacerbation, we will continue to monitor disposition to be determined. 222PM: Patient meeting severe sepsis criteria, received blood cultures, we will order ceftriaxone, obtain CT of the chest chest x-ray unremarkable, he is still feeling like he has something in his throat though he is protecting his airway. Patient reassured, he is very anxious I re-evaluated his throat, uvula is midline, there is no angioedema, he is controlling his secretions, I spoke to CT just to make sure we expedite his imaging, and he is getting fluids, antibiotics and cultures as well as 50 mcg of fentanyl just to make sure he is able to tolerate going to the CT scanner, this has been discussed with his nursing staff. 16:34 patient was not able to lay flat for CT, I am going to admit him his lactate is still elevated but I think it is due to overuse of his albuterol, with Valium he is significantly better and no longer complaining of inability to clear his throat. I updated him of the admission, he is understandable, on the phone talking with his family. Differential Diagnosis Differential Diagnoses: The differential diagnosis associated with the presentation includes Epiglottitis, tonsillitis, food bolus, COPD exacerbation, CHF, ACS, pneumonia Admission/Observation Consideration of admission/observation: Escalation of care including admission/observation considered Lab Data MDM Lab Attestation statement: I reviewed the patient's lab results. 03/21/25 13:38 03/21/25 13:38 Labs: Lab Results 03/21/25 03/21/25 03/21/25 Range/Units 13:38 13:44 13:50 WBC 16.3 H (4.8-10.8) X10*3/uL RBC 4.40 L (4.60-5.80) X10*6/uL Hgb 15.0 (14.0-18.0) g/dl Hct 40.9 L (42.0-52.0) % MCV 93.0 (80.0-98.0) fL MCH 34.1 H (27.0-33.0) pg MCHC 36.7 H (31.0-36.0) g/dl RDW 15.2 (11.0-16.0) % Plt Count 214 (160-400) X10*3/uL MPV 9.1 L (9.4-12.4) fL Immature Gran % (Auto) 0.5 H (0.0-0.4) % Neut % (Auto) 93.9 H (45-73) % Lymph % (Auto) 3.7 L (20-40) % [place] % (Auto) 1.7 L (2-11) % Eos % (Auto) 0.1 (0-4) % Baso % (Auto) 0.1 (0-2) % Lymph # (Auto) 0.6 L (1.2-4.9) X10*3/uL [place] # (Auto) 0.3 (0.1-1.2) X10*3/uL Eos # (Auto) 0.0 (0.0-0.4) X10*3/uL Baso # (Auto) 0.0 (0.0-0.2) X10*3/uL Abs Immat Gran (auto) 0.08 H (0.00-0.03) X10*3/uL Absolute Neuts (auto) 15.3 H (2.0-8.3) x10*3/uL Absolute Nucleated RBC 0.000 (0.0-0.012) X10*3/uL Nucleated RBC % (auto) 0.0 (0.0-0.2) /100WBC Smear Tech's Comments VERIFIED VBG pH 7.43 (7.32-7.43) VBG pCO2 36 mmHg VBG pO2 64 mmHg VBG HCO3 24 (22-26) mmol/L VBG O2 Saturation 91.0 % VBG Base Excess 1.0 mmol/L Sodium 140 (135-145) mmol/L Potassium 4.7 (3.3-5.1) mmol/L Chloride 104 (96-108) mmol/L Carbon Dioxide 23 (22-29) mmol/L Anion Gap 18 (12-20) BUN 9 (9-16) mg/dL Creatinine 0.67 (0.5-1.4) mg/dL Estim Creat Clear Calc 124.6 Estimated GFR > 60 Random Glucose 139 H (60-115) mg/dL Lactic Acid 4.7 H* (0.5-2.0) mmol/L Lactic Acid F/U @ 2Hr (0.5-2.0) mmol/L Calcium 8.9 (8.4-10.2) mg/dL Troponin I High Sens 2.9 (<3.5-35.0) ng/L B-Natriuretic Peptide 55 (<100) pg/mL Urine Color Urine Appearance Urine pH (5.0-9.0) Ur Specific [place] (1.005-1.025) Urine Protein (Neg-Trace) mg/dL Urine Glucose (UA) (Negative) mg/dL Urine Ketones (Negative) mg/dL Urine Blood (Negative) Urine Nitrite (Negative) Ur Leukocyte Esterase (Negative) Urine RBC (0-2) /HPF Urine WBC (0-5) /HPF Ur Squamous Epith Cells (0-2) /HPF Urine Bacteria (None Seen) Hyaline Casts (0-2) /LPF Influenza Type A (PCR) NEGATIVE (Negative) Influenza Type B (PCR) NEGATIVE (Negative) RSV RNA Qual (PCR) NEGATIVE (Negative) SARS-CoV-2 RNA (RT-PCR) NEGATIVE (Negative) S. pyogenes GrpA ADELINE (Negative) 03/21/25 03/21/25 03/21/25 Range/Units 14:00 15:48 16:00 WBC (4.8-10.8) X10*3/uL RBC (4.60-5.80) X10*6/uL Hgb (14.0-18.0) g/dl Hct (42.0-52.0) % MCV (80.0-98.0) fL MCH (27.0-33.0) pg MCHC (31.0-36.0) g/dl RDW (11.0-16.0) % Plt Count (160-400) X10*3/uL MPV (9.4-12.4) fL Immature Gran % (Auto) (0.0-0.4) % Neut % (Auto) (45-73) % Lymph % (Auto) (20-40) % [place]verse % (Auto) (2-11) % Eos % (Auto) (0-4) % Baso % (Auto) (0-2) % Lymph # (Auto) (1.2-4.9) X10*3/uL [place] # (Auto) (0.1-1.2) X10*3/uL Eos # (Auto) (0.0-0.4) X10*3/uL Baso # (Auto) (0.0-0.2) X10*3/uL Abs Immat Gran (auto) (0.00-0.03) X10*3/uL Absolute Neuts (auto) (2.0-8.3) x10*3/uL Absolute Nucleated RBC (0.0-0.012) X10*3/uL Nucleated RBC % (auto) (0.0-0.2) /100WBC Smear Tech's Comments VBG pH (7.32-7.43) VBG pCO2 mmHg VBG pO2 mmHg VBG HCO3 (22-26) mmol/L VBG O2 Saturation % VBG Base Excess mmol/L Sodium (135-145) mmol/L Potassium (3.3-5.1) mmol/L Chloride (96-108) mmol/L Carbon Dioxide (22-29) mmol/L Anion Gap (12-20) BUN (9-16) mg/dL Creatinine (0.5-1.4) mg/dL Estim Creat Clear Calc Estimated GFR Random Glucose (60-115) mg/dL Lactic Acid (0.5-2.0) mmol/L Lactic Acid F/U @ 2Hr 4.7 H* (0.5-2.0) mmol/L Calcium (8.4-10.2) mg/dL Troponin I High Sens (<3.5-35.0) ng/L B-Natriuretic Peptide (<100) pg/mL Urine Color Yellow Urine Appearance Clear Urine pH 7.0 (5.0-9.0) Ur Specific [place] 1.015 (1.005-1.025) Urine Protein Trace (Neg-Trace) mg/dL Urine Glucose (UA) Negative (Negative) mg/dL Urine Ketones Negative (Negative) mg/dL Urine Blood Negative (Negative) Urine Nitrite Negative (Negative) Ur Leukocyte Esterase Small (1+) H (Negative) Urine RBC 0-2 (0-2) /HPF Urine WBC 0-5 (0-5) /HPF Ur Squamous Epith Cells 0-2 (0-2) /HPF Urine Bacteria None Seen (None Seen) Hyaline Casts 0-2 (0-2) /LPF Influenza Type A (PCR) (Negative) Influenza Type B (PCR) (Negative) RSV RNA Qual (PCR) (Negative) SARS-CoV-2 RNA (RT-PCR) (Negative) S. pyogenes GrpA ADELINE Negative (Negative) Independent Interpretation I performed an independent interpretation of an: EKG (94 BMP, otherwise normal ECG without dysrhythmia, AV nia blocks or ST-T changes to suspect underlying ACS, my independent interpretation) and Plain X-Ray Interpretation: Cardiomegaly, possible either elevated left-sided diaphragm or small pleural effusion on the left similar to prior chest x-ray Critical Care Time Critical Care Time Critical Care Time: Yes Total Critical Care Time: 60 Attestation: Time is exclusive of separately billable procedures. Time includes: direct patient care, patient reassessment, coordination of patient care, interpretation of data (laboratory data, pulse oximetry, arterial blood gases and chest xrays), review of patient's medical records, medical consultation and documentation of patient care. Procedures excluded from critical care time: central intravenous line placement and electrocardiography. Discharge Plan Discharge Clinical Impression: Acute exacerbation of chronic obstructive pulmonary disease Patient Disposition: Admitted As Inpatient Print Language: Maori
--- NOTE | 2025-03-21 13:08 | PC.NURSE ---
Patient presents to ED c/o SOB. Patient states this stare approx 1 week ago and it got worse . PMH COPD 90% RA RR 19 afebrile. Patient stated he was here 6 days ago for same issue. 20G in left forearm. Patient hypertensive @ 147/74 all other VSS. Plan of a on going
[2025-03-21] MEDS: 0.9 % Sodium Chloride 1,000 ML 999 ML IV (13:17)
[2025-03-21] MEDS: Albuterol Sulfate 5 MG, Albuterol/Iprat 2.5/0.5MG 3 ML 3 ML INHALE (13:35)
[2025-03-21 13:52] LABS: Basophils Percent Auto 0.1 % (0-2); Eosinophils Percent Auto 0.1 % (0-4); Hematocrit 40.9 % (42.0-52.0); Imm Gran Abs Auto 0.08 X10*3/uL (0.00-0.03); Imm Gran Pct Auto 0.5 % (0.0-0.4); Lymphocytes Absolute Auto 0.6 X10*3/uL (1.2-4.9); Lymphocytes Percent Auto 3.7 % (20-40); MANUAL DIFF FLAG SCAN; Mean Corpuscular HGB Conc 36.7 g/dl (31.0-36.0); Mean Corpuscular Hemoglobin 34.1 pg (27.0-33.0); Mean Platelet Volume 9.1 fL (9.4-12.4); Monocytes Absolute Auto 0.3 X10*3/uL (0.1-1.2); Monocytes Percent Auto 1.7 % (2-11); Neutrophils Absolute Auto 15.3 x10*3/uL (2.0-8.3); Neutrophils Percent Auto 93.9 % (45-73); Platelet Count 214 X10*3/uL (160-400); Red Cell Distribution Width 15.2 % (11.0-16.0); SCAN SMEAR FLAG 1; White Blood Count 16.3 X10*3/uL (4.8-10.8)
[2025-03-21 13:53] LABS: Venous Blood Gas Refer to POC result
[2025-03-21 13:54] LABS: VBG HCO3 24 mmol/L (22-26); VBG pCO2 36 mmHg; VBG pH 7.43 (7.32-7.43); VBG pO2 64 mmHg
[2025-03-21 14:04] LABS: Anion Gap 18 (12-20); Blood Urea Nitrogen 9 mg/dL (9-16); Calcium 8.9 mg/dL (8.4-10.2); Carbon Dioxide 23 mmol/L (22-29); Chloride 104 mmol/L (96-108); Creatinine Clr Calc Pharmacy 124.6; Estimated Glomerular Filt Rate > 60; Glucose Random 139 mg/dL (60-115); Potassium 4.7 mmol/L (3.3-5.1); Sodium 140 mmol/L (135-145)
--- NOTE | 2025-03-21 14:06 | PC.NURSE ---
Patient c/o burning on urination, urine sample collected. Urine yellow, no odor. Sample sent to lab
[2025-03-21 14:07] LABS: Appearance Urine Clear; Color Urine Yellow; Glucose Urine UA Negative (Negative); Leukocyte Esterase Urine Small (1+) (Negative); Nitrite Urine Negative (Negative); Specific Gravity - Urine 1.015 (1.005-1.025); UMIC TRIGGER UACC YES; Urine Blood Negative (Negative); Urine Ketones Negative (Negative); Urine Protein Trace mg/dL (Neg-Trace)
[2025-03-21 14:10] LABS: SLIDE REVIEW VERIFIED
[2025-03-21 14:12] LABS: B Type Natriuretic Peptide 55 pg/mL (<100)
[2025-03-21 14:13] LABS: Troponin-I High Sensitivity 2.9 ng/L (<3.5-35.0)
--- NOTE | 2025-03-21 14:15 | PC.NURSE ---
CXR results Cardiomegaly. COPD. Atelectasis at the left lung base with a probable associated tiny pleural effusion.
[2025-03-21 14:16] LABS: Lactic Acid 4.7 mmol/L (0.5-2.0)
[2025-03-21 14:18] LABS: Bacteria Urine None Seen (None Seen); Hyaline Casts Urine 0-2 /LPF (0-2); RBC Urine 0-2 /HPF (0-2); Squamous Epithelial Cell Urine 0-2 /HPF (0-2); UACC Culture Trigger YES; WBC Urine 0-5 /HPF (0-5)
[2025-03-21 14:28] LABS: Influenza A PCR NEGATIVE (Negative); Influenza B PCR NEGATIVE (Negative); Resp Syncy Virus RNA Qual PCR NEGATIVE (Negative); SARS COV2 PCR INHOUSE NEGATIVE (Negative)
[2025-03-21] MEDS: fentaNYL citrate/PF 100 MCG/2 ML VIAL 50 MCG IVPUSH ×2 (14:36→15:21)
[2025-03-21] MEDS: SODIUM CHLORIDE 2790 ML IV (14:37)
[2025-03-21] MEDS: cefTRIAXone sodium 2 GM VIAL IVPUSH (14:37)
--- NOTE | 2025-03-21 14:45 | PC.NURSE ---
[address]G place in [facility], [place]. Sepsis protocol initiated, Fluids currently running, cetriaxone administered. Patient O2 remains over 90% RA. Suction applied, patient denies relief.
--- NOTE | 2025-03-21 15:21 | PC.NURSE ---
Patient extremely anxious stating something stuck in his throat. Second dose of fentanyl given. Patient utilizing own inhaler and noted to tachypneic and tacycardic with HR in the 120's. Provider notified and additional medication ordered. Plan for CT
[2025-03-21 15:49] LABS: Reflex Lactate? Lactic Acid Added
[2025-03-21] MEDS: diazePAM 10 MG/2 ML CARTRIDGE 5 MG IVPUSH (15:51)
[2025-03-21 15:59] LABS: IDNOW Serial# 55D5AD1C; Strep A Nucleic Acid Negative (Negative)
[2025-03-21] MEDS: Albuterol Sulfate 2.5 MG, Albuterol/Iprat 2.5/0.5MG 3 ML 3 ML INHALE (16:06)
[2025-03-21 16:35] LABS: ~Lactic Acid-LAB USE ONLY 4.7 mmol/L (0.5-2.0)
[2025-03-21] MEDS: Glycopyrrolate 0.2 MG/ML VIAL 0.1 MG IVPUSH (16:46)
[2025-03-21] MEDS: Azithromycin 500 MG in 0.9 % Sodium Chloride 250 ML 125 MG IV (16:51)
--- NOTE | 2025-03-21 16:54 | PM.IMHP ---
History of Present Illness Date of Service: 03/21/25 Chief Complaint: SOB 65-year-old man with a history of COPD presents to the ER with complaints of worsening shortness of breath over the last 2-3 days despite using his medication. He was recently in the ER and treated with antibiotics and steroids but he continued to report feeling like he was choking. He reports a dry cough. He denied any chest pain, nausea, vomiting, diarrhea, fever, chills. He is noted to have a raspy voice and expiratory wheezing. In the ER chest x-ray was noted with cardiomegaly, atelectasis versus pneumonia at the left lung base with probable associated tiny pleural effusion. He was noted to have tachycardia, tachypnea, leukocytosis and lactic acidosis. He was given sepsis fluid bolus, fentanyl, Valium, albuterol, azithromycin, Solu-Medrol while in the ER. He will be admitted for further management and treatment of severe sepsis secondary to pneumonia. Review of Systems Review of Systems: Denies any recent fever chills or decrease in appetite respiratory see HPI cardiovascular denied chest pain gastrointestinal denies any dysphagia abdominal pain nausea vomiting or diarrhea genitourinary denies any dysuria frequency or hematuria musculoskeletal denies any joint pain or swelling neuropsych denies any weakness or seizures all other systems reviewed are negative [facility] Medical History (Updated 03/21/25 @ 18:21 by Ashley Lopez NP) COPD with acute exacerbation SOB (shortness of breath) Anxiety Smoker Pharyngitis COPD (chronic obstructive pulmonary disease) Arthritis Abdominal hernia Numbness Tinea cruris Pes anserinus bursitis of left knee Rib fractures Osteoarthritis of right hip Right hip pain Sinus congestion Overweight (BMI 25.0-29.9) Urgency of micturition Carpal tunnel syndrome Femoral fracture Pulmonary nodule BPH (benign prostatic hyperplasia) Seizure disorder Insomnia Vitamin D deficiency Impaired glucose tolerance Hypercholesterolemia GERD (gastroesophageal reflux disease) Polysubstance abuse Left subclavian artery occlusion Brain aneurysm CVA (cerebral vascular accident) Vocal cord polyp Vitamin B12 deficiency Family History Father CAD (coronary artery disease) Kidney malignancy Mother Myocardial infarction Brother Prostate cancer Surgical History (Updated 03/18/25 @ 00:02 by Isa Lewis) History of nasal surgery H/O colonoscopy Stenosis of subclavian bypass History of surgery History of orthopedic surgery History of knee replacement procedure of right knee Social History Household Members: Other Household Members Other:: roomate Housing: Other Housing Other:: mobile home Are you a primary health careers instructor to a significant other at home: No Do you presently have visiting nurse or other home services: No Unable to assess alcohol history related to: Unknown Alcohol intake: current Alcohol intake frequency: a few times a week Alcohol type: beer Comment: 4 drinks last night Patient Tobacco Use Status: Former Tobacco user Tobacco use type: Cigarette Cigarette Packs Per Day: 5 Cigarettes Per Day: 0.25 Years Smoked: 55 Smoked in Last 30 Days: Yes e-Cigarette/Vaping Use: Never Used Second Hand Smoke Exposure: No Use of substances other than those prescribed or required for medical reasons: Yes Substance Use Type: Crack/Cocaine Substance Use Frequency: Occasionally Last Used Substance: Days (ago) Any prior treatment program specific to substance use: No Advance Directives: No Advance Directives Information Provided: Yes Do you have a plan to hurt others: No Plan service: No Current occupational status: unemployed Cognitive needs: Yes (Cane) Hearing needs: No Vision needs: Yes Meds Allergies Allergy/AdvReac Type Severity Reaction Status Date / Time divalproex sodium [Depakote] Allergy Unknown Unknown Verified 03/21/25 12:51 rosuvastatin Allergy Unknown SOB Verified 03/21/25 12:51 finasteride Allergy Intermediate Hives Uncoded 03/21/25 12:51 Active Medications: Current Medications Azithromycin 500 mg/ Sodium (Chloride) 250 mls @ 125 mls/hr IV ONCE ONE Stop: 03/21/25 18:38 Home Medications ?Medication ?Instructions ?Recorded ?Confirmed ?Last Taken ?Type apixaban 2.5 mg tablet (Eliquis) 2.5 mg PO BID 09/02/24 03/11/25 03/02/25 History ipratropium 0.5 mg-albuterol 3 mg 3 ml inhalation Q4H PRN Shortness 03/03/25 03/11/25 Unknown History (2.5 mg base)/3 mL nebulization Of Breath Or Wheezing soln Physical Exam Vital Signs and Narrative: Vital Signs: Last Vital Signs Temp 97.6 F 03/21/25 16:25 Pulse 70 03/21/25 16:25 Resp 20 03/21/25 16:25 BP 144/68 H 03/21/25 16:25 Pulse Ox 92 03/21/25 16:25 O2 Del Method Room Air 03/21/25 16:25 O2 Flow Rate 2 03/21/25 15:41 BMI result Body Mass Index 28.6 Appearing in no acute distress head is normocephalic atraumatic eyes pupils are PERRLA sclera is anicteric mouth throat mucous membranes are intact and moist neck is supple no lymphadenopathy, no JVD noted lung sounds are clear to auscultation heart regular rate rhythm, clear S1, S2 positive bowel sounds, abdomen is soft, nontender neuro patient is alert x3, no focal deficits Results Labs 03/21/25 13:38 03/21/25 13:38 Labs: Laboratory Results - last 24 hr 03/21/25 03/21/25 03/21/25 13:38 13:44 13:50 MCV 93.0 MCH 34.1 H MCHC 36.7 H RDW 15.2 Plt Count 214 MPV 9.1 L Immature Gran % (Auto) 0.5 H Neut % (Auto) 93.9 H Lymph % (Auto) 3.7 L [place] % (Auto) 1.7 L Eos % (Auto) 0.1 Baso % (Auto) 0.1 Lymph # (Auto) 0.6 L [place] # (Auto) 0.3 Eos # (Auto) 0.0 Baso # (Auto) 0.0 Abs Immat Gran (auto) 0.08 H Absolute Neuts (auto) 15.3 H Absolute Nucleated RBC 0.000 Nucleated RBC % (auto) 0.0 Smear Tech's Comments VERIFIED VBG pH 7.43 VBG pCO2 36 VBG pO2 64 VBG HCO3 24 VBG O2 Saturation 91.0 VBG Base Excess 1.0 Anion Gap 18 Estim Creat Clear Calc 124.6 Estimated GFR > 60 Random Glucose 139 H Lactic Acid 4.7 H* Lactic Acid F/U @ 2Hr Calcium 8.9 Troponin I High Sens 2.9 B-Natriuretic Peptide 55 Urine Color Urine Appearance Urine pH Ur Specific [place] Urine Protein Urine Glucose (UA) Urine Ketones Urine Blood Urine Nitrite Ur Leukocyte Esterase Urine RBC Urine WBC Ur Squamous Epith Cells Urine Bacteria Hyaline Casts Influenza Type A (PCR) NEGATIVE Influenza Type B (PCR) NEGATIVE RSV RNA Qual (PCR) NEGATIVE SARS-CoV-2 RNA (RT-PCR) NEGATIVE S. pyogenes GrpA ADELINE 03/21/25 03/21/25 03/21/25 14:00 15:48 16:00 MCV MCH MCHC RDW Plt Count MPV Immature Gran % (Auto) Neut % (Auto) Lymph % (Auto) [place] % (Auto) Eos % (Auto) Baso % (Auto) Lymph # (Auto) [place] # (Auto) Eos # (Auto) Baso # (Auto) Abs Immat Gran (auto) Absolute Neuts (auto) Absolute Nucleated RBC Nucleated RBC % (auto) Smear Tech's Comments VBG pH VBG pCO2 VBG pO2 VBG HCO3 VBG O2 Saturation VBG Base Excess Anion Gap Estim Creat Clear Calc Estimated GFR Random Glucose Lactic Acid Lactic Acid F/U @ 2Hr 4.7 H* Calcium Troponin I High Sens B-Natriuretic Peptide Urine Color Yellow Urine Appearance Clear Urine pH 7.0 Ur Specific [place] 1.015 Urine Protein Trace Urine Glucose (UA) Negative Urine Ketones Negative Urine Blood Negative Urine Nitrite Negative Ur Leukocyte Esterase Small (1+) H Urine RBC 0-2 Urine WBC 0-5 Ur Squamous Epith Cells 0-2 Urine Bacteria None Seen Hyaline Casts 0-2 Influenza Type A (PCR) Influenza Type B (PCR) RSV RNA Qual (PCR) SARS-CoV-2 RNA (RT-PCR) S. pyogenes GrpA ADELINE Negative Imaging Radiologist's Impressions: Impressions Chest X-Ray 03/21/25 13:04 IMPRESSION: Cardiomegaly. COPD. Atelectasis versus pneumonia at the left lung base with a probable associated tiny pleural effusion. Electronically signed by: Basilio Romero MD 03/21/2025 01:30 PM EDT Assessment and Plan (1) Severe sepsis: Status: Acute Plan 65-year-old man admitted with severe sepsis secondary to pneumonia Severe sepsis secondary to pneumonia with history of COPD Tachycardia, tachypnea, leukocytosis, lactic acidosis Start Rocephin and azithromycin Scheduled DuoNebs IV Solu-Medrol Supplemental oxygen to keep oxygen saturation greater than 90%, patient reports that he uses oxygen at nighttime at home and Pulmonary consultation Paroxysmal atrial fibrillation Continue apixaban 2.5 b.i.d. Not on any rate control medications Mental health Continue home medications Hyperlipidemia Continue aspirin and statin GERD Continue PPI BPH Continue tamsulosin Smoker. Reports smokes 2-3 cigarettes a day NRT History of substance abuse and alcohol Check urine toxicology and alcohol screen DVT prophylaxois with apixaban Full code Quality Stroke Does the patient have a stroke diagnosis?: No VTE Prior VTE?: No VTE Risk Level:: Medical - moderate - high VTE Device Contraindication: Treatment Not Indicated VTE Drug Contraindication: N/A - Med Ordered
[2025-03-21 18:03] LABS: Reflex Lactate? 2 Y
--- NOTE | 2025-03-21 18:28 | PHA.MEDREC ---
Addendum entered by Camille Villar RPh 03/21/25 18:45: [facility] REVIEWED Original Note: Pharmacy Consult ? Medication Reconciliation Pharmacy has completed the medication reconciliation. Spoke with pt and he was able to confirm his medications. Pt confirmed he had a procedure scheduled for this and states he stopped taking his Eliquis 2.5mg tab Friday for it. He confirmed he isn't taking the Dutasteride tablet anymore due to developing an allergic reaction to it. Pt confirmed he is taking the Prednisone 10mg regimen and confirmed he finished the 3 tabs for 3 days regimen yesterday and was suppose to start taking the 2 tabs for 3 days today but couldn't take any meds this morning.
[2025-03-21] MEDS: Albuterol Sulfate (0.083%) 2.5 MG/3 ML VIAL.NEB INHALE (18:56)
[2025-03-21 19:26] LABS: ~Lactic Acid-LAB USE ONLY 4.6 mmol/L (0.5-2.0)
--- NOTE | 2025-03-21 19:53 | PC.NURSE ---
Spoke with Raquel in lab and urine ethyl level would be a 2-3 day send out. Per Ashley, can cancel order at this time.
[2025-03-21 19:56] LABS: Amphetamine Screen Urine Not Detected (Not Detect); Barbiturates, Urine Not Detected (Not Detect); Benzodiazepines Screen Urine Not Detected (Not Detect); Buprenorphine Scr Not Detected (Not Detect); Cannabinoid Screen Urine Not Detected (Not Detect); Cocaine Screen Urine POSITIVE (Not Detect); Fentanyl, urine Not Detected (Not Detect); Methadone Screen, Urine Not Detected (Not Detect); Opiate Screen Urine Not Detected (Not Detect); Oxycodone Screen Urine Not Detected (Not Detect); Phencyclidine Screen Urine Not Detected (Not Detect)
[2025-03-21] MEDS: guaiFENesin LA 600 MG TAB.ER.12H PO (20:09)
[2025-03-21] MEDS: Apixaban 2.5 MG TABLET PO (20:09)
[2025-03-21] MEDS: methylPREDNISolone Sod Succ 40 MG/ML VIAL 20 MG IVPUSH (22:42)
[2025-03-21] MEDS: 0.9 % Sodium Chloride Flush 3 ML SYRINGE IVFLUSH (22:42)
[2025-03-21] MEDS: Melatonin 3 MG TABLET 6 MG PO (22:51)
[2025-03-21] MEDS: oxyCODONE HCl Immed Release 5 MG TABLET PO (23:37)
[2025-03-21] MEDS: diazePAM 2 MG TABLET PO (23:38)
[2025-03-21] MEDS: guaiFENesin DM 100/10/5 ML 5 ML SYRUP PO (23:38)
[2025-03-22] VITALS (9 sets, daily range): BP systolic 131–142; BP diastolic 67–92; PULSE 92–97; RESP 17–20; TEMP 36–36.9; O2SAT 93–98
--- NOTE | 2025-03-22 03:40 | PC.NURSE ---
03/21/25 2300 pt requesting oxycodone for right hip pain,robitussin for cough,resp tx and something for anxiety notified orders placed in computer.Pt medicated with oxycodone 5mg,valium 2mg po and robitussin at 2340.Resp came and gave pt tx resting comfortably in bed.
[2025-03-22] MEDS: guaiFENesin DM 100/10/5 ML 5 ML SYRUP PO ×2 (05:53→17:07)
[2025-03-22 05:54] LABS: Basophils Percent Auto 0.1 % (0-2); Hematocrit 37.8 % (42.0-52.0); Hemoglobin 13.7 g/dl (14.0-18.0); Imm Gran Abs Auto 0.08 X10*3/uL (0.00-0.03); Imm Gran Pct Auto 0.6 % (0.0-0.4); Lymphocytes Absolute Auto 0.4 X10*3/uL (1.2-4.9); Lymphocytes Percent Auto 2.6 % (20-40); MANUAL DIFF FLAG SCAN; Mean Corpuscular HGB Conc 36.2 g/dl (31.0-36.0); Mean Corpuscular Hemoglobin 33.9 pg (27.0-33.0); Mean Corpuscular Volume 93.6 fL (80.0-98.0); Mean Platelet Volume 9.2 fL (9.4-12.4); Monocytes Absolute Auto 0.2 X10*3/uL (0.1-1.2); Monocytes Percent Auto 1.2 % (2-11); Neutrophils Absolute Auto 12.8 x10*3/uL (2.0-8.3); Neutrophils Percent Auto 95.5 % (45-73); Platelet Count 184 X10*3/uL (160-400); Red Blood Count 4.04 X10*6/uL (4.60-5.80); SCAN SMEAR FLAG 1; White Blood Count 13.4 X10*3/uL (4.8-10.8)
[2025-03-22 06:12] LABS: Anion Gap 14 (12-20); Blood Urea Nitrogen 13 mg/dL (9-16); Calcium 8.5 mg/dL (8.4-10.2); Carbon Dioxide 22 mmol/L (22-29); Chloride 104 mmol/L (96-108); Creatinine Clr Calc Pharmacy 139.2; Estimated Glomerular Filt Rate > 60; Glucose Random 149 mg/dL (60-115); Potassium 4.2 mmol/L (3.3-5.1); Sodium 136 mmol/L (135-145)
[2025-03-22 06:13] LABS: SLIDE REVIEW VERIFIED
[2025-03-22] MEDS: Albuterol Sulfate (0.083%) 2.5 MG/3 ML VIAL.NEB INHALE ×4 (07:41→19:42)
[2025-03-22] MEDS: guaiFENesin LA 600 MG TAB.ER.12H PO ×2 (08:25→20:41)
[2025-03-22] MEDS: 0.9 % Sodium Chloride Flush 3 ML SYRINGE IVFLUSH ×3 (08:25→20:43)
--- NOTE | 2025-03-22 09:33 | P.PNIM_ITS ---
Subjective Subjective Date of Service: 03/22/25 Interval History: Follow up PNA productive cough noted today some sob with exertion acute on chronic knee pain Review of Systems Denies chest pain Admits shortness of breath with exertion that has worsened Denies nausea vomiting diarrhea Denies fever chills Physical Exam 2 Vital Signs: Vital Signs: Last Vital Signs Temp 97.4 F 03/22/25 07:53 Pulse 94 03/22/25 07:53 Resp 18 03/22/25 07:53 BP 142/89 H 03/22/25 07:53 Pulse Ox 95 03/22/25 03:16 O2 Del Method Nasal Cannula 03/22/25 03:16 O2 Flow Rate 2 03/22/25 03:16 BMI result Body Mass Index 28.6 Appearing in no acute distress lung sounds are clear to auscultation heart regular rate rhythm, clear S1, S2 positive bowel sounds, abdomen is soft, nontender neuro patient is alert x3, no focal deficits Objective Data Active Medications Acetaminophen (Acetaminophen 325 Mg Tablet) 650 mg PO Q6H PRN PRN Reason: Pain, Mild 1-3,fever,headache Albuterol Sulfate (Albuterol Sulfate (0.083%) 2.5 Mg/3 Ml Vial.Neb) 2.5 mg INHALE RQ4H WHILE AWAKE [facility] Last Admin: 03/22/25 07:41 Dose: 2.5 mg Documented By: SKYLAR Albuterol/Ipratropium (Albuterol/Iprat 2.5/0.5mg 3 Ml Ampul.Neb) 3 ml INHALE RQ4H WHILE AWAKE PRN PRN Reason: Shortness of Breath Apixaban (Apixaban 2.5 Mg Tablet) 2.5 mg PO BID [facility] Last Admin: 03/21/25 20:09 Dose: 2.5 mg Documented By: CHARLY Benzonatate (Benzonatate 100 Mg Capsule) 100 mg PO TID PRN PRN Reason: Cough Calcium Carbonate (Calcium Carbonate 750 Mg Tab.Chew) 750 mg PO Q4H PRN PRN Reason: Heartburn Ceftriaxone Sodium (Ceftriaxone Sodium 1 Gm Vial) 1 gm IVPUSH Q24H [facility] Guaifenesin (Guaifenesin La 600 Mg Tab.Er.12h) 600 mg PO BID [facility] Last Admin: 03/22/25 08:25 Dose: 600 mg Documented By: YING Guaifenesin/Dextromethorphan (Guaifenesin Dm 100/10/5 Ml 5 Ml Syrup) 5 ml PO Q6H PRN PRN Reason: Cough Last Admin: 03/22/25 05:53 Dose: 5 ml Documented By: ИВАН Azithromycin 500 mg/ Sodium (Chloride) 250 mls @ 125 mls/hr IV Q24H [facility] Magnesium Hydroxide (Milk Of Magnesia 30 Ml Oral.Susp) 30 ml PO DAILY PRN PRN Reason: Constipation Melatonin (Melatonin 3 Mg Tablet) 6 mg PO BEDTIME PRN PRN Reason: Insomnia Last Admin: 03/21/25 22:51 Dose: 6 mg Documented By: ИВАН Methylprednisolone Sodium Succinate (Methylprednisolone Sod Succ 40 Mg/Ml Vial) 20 mg IVPUSH Q12H [facility] Last Admin: 03/21/25 22:42 Dose: 20 mg Documented By: ИВАН Nicotine Polacrilex (Nicotine Polacrilex 2 Mg Gum) 2 mg BUCCAL Q2H PRN PRN Reason: Nicotine Cravings Ondansetron HCl (Ondansetron Hcl 4 Mg/2 Ml Vial) 4 mg IVPUSH Q8H PRN PRN Reason: Nausea and Vomiting Sodium Chloride (0.9 % Sodium Chloride Flush 3 Ml Syringe) 3 ml IVFLUSH QSHIFT [facility] Last Admin: 03/22/25 08:25 Dose: 3 ml Documented By: YING Labs 03/22/25 05:13 03/22/25 05:13 Labs: Laboratory Results - last 24 hr 03/21/25 03/21/25 03/21/25 13:38 13:44 13:50 MCV 93.0 MCH 34.1 H MCHC 36.7 H RDW 15.2 Plt Count 214 MPV 9.1 L Immature Gran % (Auto) 0.5 H Neut % (Auto) 93.9 H Lymph % (Auto) 3.7 L [place] % (Auto) 1.7 L Eos % (Auto) 0.1 Baso % (Auto) 0.1 Lymph # (Auto) 0.6 L [place] # (Auto) 0.3 Eos # (Auto) 0.0 Baso # (Auto) 0.0 Abs Immat Gran (auto) 0.08 H Absolute Neuts (auto) 15.3 H Absolute Nucleated RBC 0.000 Nucleated RBC % (auto) 0.0 Smear Tech's Comments VERIFIED VBG pH 7.43 VBG pCO2 36 VBG pO2 64 VBG HCO3 24 VBG O2 Saturation 91.0 VBG Base Excess 1.0 Anion Gap 18 Estim Creat Clear Calc 124.6 Estimated GFR > 60 Random Glucose 139 H Lactic Acid 4.7 H* Lactic Acid F/U @ 2Hr Lactic Acid F/U @ 4Hr Calcium 8.9 Troponin I High Sens 2.9 B-Natriuretic Peptide 55 Urine Color Urine Appearance Urine pH Ur Specific [place] Urine Protein Urine Glucose (UA) Urine Ketones Urine Blood Urine Nitrite Ur Leukocyte Esterase Urine RBC Urine WBC Ur Squamous Epith Cells Urine Bacteria Hyaline Casts Urine Opiates Screen Ur Buprenorphine Scrn Ur Oxycodone Screen Urine Methadone Screen Urine Fentanyl Screen Ur Barbiturates Screen Ur Phencyclidine Scrn Ur Amphetamines Screen U Benzodiazepines Scrn Urine Cocaine Screen U Marijuana (THC) Screen Influenza Type A (PCR) NEGATIVE Influenza Type B (PCR) NEGATIVE RSV RNA Qual (PCR) NEGATIVE SARS-CoV-2 RNA (RT-PCR) NEGATIVE S. pyogenes GrpA ADELINE 03/21/25 03/21/25 03/21/25 14:00 15:48 16:00 MCV MCH MCHC RDW Plt Count MPV Immature Gran % (Auto) Neut % (Auto) Lymph % (Auto) [place] % (Auto) Eos % (Auto) Baso % (Auto) Lymph # (Auto) [place] # (Auto) Eos # (Auto) Baso # (Auto) Abs Immat Gran (auto) Absolute Neuts (auto) Absolute Nucleated RBC Nucleated RBC % (auto) Smear Tech's Comments VBG pH VBG pCO2 VBG pO2 VBG HCO3 VBG O2 Saturation VBG Base Excess Anion Gap Estim Creat Clear Calc Estimated GFR Random Glucose Lactic Acid Lactic Acid F/U @ 2Hr 4.7 H* Lactic Acid F/U @ 4Hr Calcium Troponin I High Sens B-Natriuretic Peptide Urine Color Yellow Urine Appearance Clear Urine pH 7.0 Ur Specific [place] 1.015 Urine Protein Trace Urine Glucose (UA) Negative Urine Ketones Negative Urine Blood Negative Urine Nitrite Negative Ur Leukocyte Esterase Small (1+) H Urine RBC 0-2 Urine WBC 0-5 Ur Squamous Epith Cells 0-2 Urine Bacteria None Seen Hyaline Casts 0-2 Urine Opiates Screen Ur Buprenorphine Scrn Ur Oxycodone Screen Urine Methadone Screen Urine Fentanyl Screen Ur Barbiturates Screen Ur Phencyclidine Scrn Ur Amphetamines Screen U Benzodiazepines Scrn Urine Cocaine Screen U Marijuana (THC) Screen Influenza Type A (PCR) Influenza Type B (PCR) RSV RNA Qual (PCR) SARS-CoV-2 RNA (RT-PCR) S. pyogenes GrpA ADELINE Negative 03/21/25 03/21/25 03/22/25 18:46 19:24 05:13 MCV 93.6 MCH 33.9 H MCHC 36.2 H RDW 15.0 Plt Count 184 MPV 9.2 L Immature Gran % (Auto) 0.6 H Neut % (Auto) 95.5 H Lymph % (Auto) 2.6 L [place] % (Auto) 1.2 L Eos % (Auto) 0.0 Baso % (Auto) 0.1 Lymph # (Auto) 0.4 L [place] # (Auto) 0.2 Eos # (Auto) 0.0 Baso # (Auto) 0.0 Abs Immat Gran (auto) 0.08 H Absolute Neuts (auto) 12.8 H Absolute Nucleated RBC 0.000 Nucleated RBC % (auto) 0.0 Smear Tech's Comments VERIFIED VBG pH VBG pCO2 VBG pO2 VBG HCO3 VBG O2 Saturation VBG Base Excess Anion Gap 14 Estim Creat Clear Calc 139.2 Estimated GFR > 60 Random Glucose 149 H Lactic Acid Lactic Acid F/U @ 2Hr Lactic Acid F/U @ 4Hr 4.6 H* Calcium 8.5 Troponin I High Sens B-Natriuretic Peptide Urine Color Urine Appearance Urine pH Ur Specific [place] Urine Protein Urine Glucose (UA) Urine Ketones Urine Blood Urine Nitrite Ur Leukocyte Esterase Urine RBC Urine WBC Ur Squamous Epith Cells Urine Bacteria Hyaline Casts Urine Opiates Screen Not Detected Ur Buprenorphine Scrn Not Detected Ur Oxycodone Screen Not Detected Urine Methadone Screen Not Detected Urine Fentanyl Screen Not Detected Ur Barbiturates Screen Not Detected Ur Phencyclidine Scrn Not Detected Ur Amphetamines Screen Not Detected U Benzodiazepines Scrn Not Detected Urine Cocaine Screen POSITIVE H U Marijuana (THC) Screen Not Detected Influenza Type A (PCR) Influenza Type B (PCR) RSV RNA Qual (PCR) SARS-CoV-2 RNA (RT-PCR) S. pyogenes GrpA ADELINE Microbiology Microbiology Results: Microbiology 03/21/25 Unknown Urine Culture - Final Urine clean catch - Clean Catch Midstream No growth. Assessment and Plan (1) Generalized anxiety disorder: Status: Acute Plan 65-year-old man admitted with severe sepsis secondary to pneumonia Severe sepsis secondary to pneumonia with history of COPD. Sepsis resolved Tachycardia, tachypnea, leukocytosis, lactic acidosis continue Rocephin and azithromycin Scheduled DuoNebs IV Solu-Medrol Supplemental oxygen to keep oxygen saturation greater than 90%, patient reports that he uses oxygen at nighttime at home and Pulmonary consultation Acute on chronic knee pain lidocaine patch oxycodone Paroxysmal atrial fibrillation Continue apixaban 2.5 b.i.d. Not on any rate control medications Mental health Continue home medications xanax added prn for increased anxiety Hyperlipidemia Continue aspirin and statin GERD Continue PPI BPH Continue tamsulosin Smoker. Reports smokes 2-3 cigarettes a day NRT History of substance abuse and alcohol cocaine + DVT prophylaxois with apixaban Full code Quality Stroke Does the patient have a stroke diagnosis?: No VTE Prior VTE?: No VTE Risk Level:: Medical - moderate - high VTE Device Contraindication: Treatment Not Indicated VTE Drug Contraindication: N/A - Med Ordered
--- NOTE | 2025-03-22 10:38 | MHC.CM.PN ---
PT LIVES WITH A ROOM MATE HAS OWN RIDE HOME IS ACTIVE WITH [facility] FOR PT AND [facility] PT HAS HOME 02
[2025-03-22] MEDS: Gabapentin 300 MG CAPSULE 600 MG PO ×3 (11:30→20:41)
[2025-03-22] MEDS: ALPRAZolam 0.25 MG TABLET PO (11:31)
[2025-03-22] MEDS: methylPREDNISolone Sod Succ 40 MG/ML VIAL 20 MG IVPUSH ×2 (11:31→22:48)
[2025-03-22] MEDS: oxyCODONE HCl Immed Release 5 MG TABLET PO ×3 (11:31→20:40)
[2025-03-22] MEDS: Tamsulosin HCL 0.4 MG CAPSULE PO (11:31)
--- NOTE | 2025-03-22 11:51 | P.CONPL_ITS ---
History of Present Illness History of Present Illness Consult date: 03/22/25 Chief complaint: sepsis, pneumonia Narrative: 65-year-old gentleman with underlying COPD on nocturnal O2 up to 3 L, followed by Dr. Oneil, admitted on 03/21/2025 with complaining of slowly worsening dyspnea and nonproductive cough. Patient was empirically treated for community-acquired pneumonia with no significant changes in his respiratory status. He was not able to lay flat secondary to orthopnea and CT chest was not obtained. Review of Systems 2 Cardiovascular: Cardiovascular: Reports leg edema, Reports dyspnea on exertion and Reports orthopnea Respiratory: Respiratory: Reports cough, Denies excessive phlegm production, Reports dyspnea on exertion and Denies wheezing Allergic/Immunologic: Allergic/Immunologic: Denies wheezing [facility] Past Medical History Medical History (Updated 03/22/25 @ 11:55 by Uri Rust MD) COPD with acute exacerbation SOB (shortness of breath) Anxiety Smoker Pharyngitis COPD (chronic obstructive pulmonary disease) Arthritis Abdominal hernia Numbness Tinea cruris Pes anserinus bursitis of left knee Rib fractures Osteoarthritis of right hip Right hip pain Sinus congestion Overweight (BMI 25.0-29.9) Urgency of micturition Carpal tunnel syndrome Femoral fracture Pulmonary nodule BPH (benign prostatic hyperplasia) Seizure disorder Insomnia Vitamin D deficiency Impaired glucose tolerance Hypercholesterolemia GERD (gastroesophageal reflux disease) Polysubstance abuse Left subclavian artery occlusion Brain aneurysm CVA (cerebral vascular accident) Vocal cord polyp Vitamin B12 deficiency Family History Family History Father CAD (coronary artery disease) Kidney malignancy Mother Myocardial infarction Brother Prostate cancer Surgical History Surgical History (Updated 03/18/25 @ 00:02 by Isa Lewis) History of nasal surgery H/O colonoscopy Stenosis of subclavian bypass History of surgery History of orthopedic surgery History of knee replacement procedure of right knee Social History Social History Household Members: Other Household Members Other:: roomate Housing: House Housing Other:: mobile home Are you a primary care rep to a significant other at home: No Do you presently have visiting nurse or other home services: Yes 75 years or older and lives alone: No Unable to assess alcohol history related to: Unknown Alcohol intake: current Alcohol intake frequency: a few times a week Alcohol type: beer Comment: 4 drinks last night Patient Tobacco Use Status: Former Tobacco user Tobacco use type: Cigarette Cigarette Packs Per Day: 5 Cigarettes Per Day: 0.25 Years Smoked: 55 e-Cigarette/Vaping Use: Never Used Second Hand Smoke Exposure: No Substance Use Type: Crack/Cocaine service: No Current occupational status: unemployed Cognitive needs: Yes (Cane) Hearing needs: No Vision needs: Yes Meds Allergies Allergy/AdvReac Type Severity Reaction Status Date / Time divalproex sodium [Depakote] Allergy Unknown Unknown Verified 03/21/25 12:51 rosuvastatin Allergy Unknown SOB Verified 03/21/25 12:51 finasteride Allergy Intermediate Hives Uncoded 03/21/25 12:51 Active Medications: Current Medications Acetaminophen (Acetaminophen 325 Mg Tablet) 650 mg PO Q6H PRN PRN Reason: Pain, Mild 1-3,fever,headache Albuterol Sulfate (Albuterol Sulfate (0.083%) 2.5 Mg/3 Ml Vial.Neb) 2.5 mg INHALE RQ4H WHILE AWAKE [facility] Last Admin: 03/22/25 11:03 Dose: 2.5 mg Albuterol/Ipratropium (Albuterol/Iprat 2.5/0.5mg 3 Ml Ampul.Neb) 3 ml INHALE RQ4H WHILE AWAKE PRN PRN Reason: Shortness of Breath Alprazolam (Alprazolam 0.25 Mg Tablet) 0.25 mg PO BID PRN PRN Reason: Anxiety Last Admin: 03/22/25 11:31 Dose: 0.25 mg Apixaban (Apixaban 2.5 Mg Tablet) 2.5 mg PO BID [facility] Last Admin: 03/22/25 11:25 Dose: Not Given Aspirin (Aspirin Enteric Coated 81 Mg Tablet.Dr) 81 mg PO DAILY [facility] Atorvastatin Calcium (Atorvastatin Calcium 80 Mg Tablet) 80 mg PO BEDTIME [facility] Benzonatate (Benzonatate 100 Mg Capsule) 100 mg PO TID PRN PRN Reason: Cough Bupropion HCl (Bupropion Hcl Xl 300 Mg Tab.Er.24h) 300 mg PO DAILY [facility] Calcium Carbonate (Calcium Carbonate 750 Mg Tab.Chew) 750 mg PO Q4H PRN PRN Reason: Heartburn Ceftriaxone Sodium (Ceftriaxone Sodium 1 Gm Vial) 1 gm IVPUSH Q24H [facility] Cyanocobalamin (Cyanocobalamin (Vitamin B-12) 1,000 Mcg Tablet) 1,000 mcg PO DAILY [facility] Furosemide (Furosemide 20 Mg/2 Ml Vial) 20 mg IVPUSH BID@0900,1800 [facility]; Protocol Gabapentin (Gabapentin 300 Mg Capsule) 600 mg PO TID [facility] Last Admin: 03/22/25 11:30 Dose: 600 mg Guaifenesin (Guaifenesin La 600 Mg Tab.Er.12h) 600 mg PO BID [facility] Last Admin: 03/22/25 08:25 Dose: 600 mg Guaifenesin/Dextromethorphan (Guaifenesin Dm 100/10/5 Ml 5 Ml Syrup) 5 ml PO Q6H PRN PRN Reason: Cough Last Admin: 03/22/25 05:53 Dose: 5 ml Azithromycin 500 mg/ Sodium (Chloride) 250 mls @ 125 mls/hr IV Q24H [facility] Magnesium Hydroxide (Milk Of Magnesia 30 Ml Oral.Susp) 30 ml PO DAILY PRN PRN Reason: Constipation Melatonin (Melatonin 3 Mg Tablet) 6 mg PO BEDTIME PRN PRN Reason: Insomnia Last Admin: 03/21/25 22:51 Dose: 6 mg Methylprednisolone Sodium Succinate (Methylprednisolone Sod Succ 40 Mg/Ml Vial) 20 mg IVPUSH Q12H [facility] Last Admin: 03/22/25 11:31 Dose: 20 mg Nicotine Polacrilex (Nicotine Polacrilex 2 Mg Gum) 2 mg BUCCAL Q2H PRN PRN Reason: Nicotine Cravings Omeprazole (Omeprazole 20 Mg Capsule.Dr) 20 mg PO BID@0630,1630 [facility] Ondansetron HCl (Ondansetron Hcl 4 Mg/2 Ml Vial) 4 mg IVPUSH Q8H PRN PRN Reason: Nausea and Vomiting Oxycodone HCl (Oxycodone Hcl Immed Release 5 Mg Tablet) 5 mg PO Q4H PRN PRN Reason: Pain, Moderate(Pain Scale 4-6) Last Admin: 03/22/25 11:31 Dose: 5 mg Sodium Chloride (0.9 % Sodium Chloride Flush 3 Ml Syringe) 3 ml IVFLUSH QSHIFT [facility] Last Admin: 03/22/25 08:25 Dose: 3 ml Tamsulosin HCl (Tamsulosin Hcl 0.4 Mg Capsule) 0.4 mg PO DAILY [facility] Last Admin: 03/22/25 11:31 Dose: 0.4 mg Home Medications ?Medication ?Instructions ?Recorded ?Confirmed ?Last Taken ?Type apixaban 2.5 mg tablet (Eliquis) 2.5 mg PO BID 09/02/24 03/11/25 03/19/25 History ipratropium 0.5 mg-albuterol 3 mg 3 ml inhalation Q4H PRN Shortness 03/03/25 03/21/25 Unknown History (2.5 mg base)/3 mL nebulization Of Breath Or Wheezing soln acetaminophen 325 mg tablet 650 mg PO Q4H PRN Pain, Mild (Pain 03/21/25 03/21/25 Unknown History Scale 1-3) [id number] 300 mcg-K 60 1 tab PO DAILY 03/21/25 03/21/25 03/20/25 History mcg-lycop 600 mcg-lutein 300 mcg tablet (Centrum Silver Ultra Men's) prednisone 10 mg tablet See Rx Instructions .Route .COMPLEX 03/21/25 03/21/25 03/20/25 History 30 mg Physical Exam 2 Vital Signs: Vital Signs: Last Vital Signs Temp 97.4 F 03/22/25 07:53 Pulse 95 03/22/25 11:05 Resp 20 03/22/25 11:05 BP 142/89 H 03/22/25 07:53 Pulse Ox 95 03/22/25 03:16 O2 Del Method Nasal Cannula 03/22/25 03:16 O2 Flow Rate 2 03/22/25 03:16 BMI result Body Mass Index 28.6 Const: General: no acute distress, alert and awake Nutritional Appearance: obese Eyes: Sclerae: sclerae normal EOM: EOMs intact bilaterally Neck: Neck: Yes no lymphadenopathy, Yes trachea midline and Yes supple Resp: Effort & Inspection: normal respiratory effort and no respiratory distress Auscultation: crackles (Mild bibasilar) Cardio: Rate: regular rate Rhythm: regular rhythm Heart sounds: no gallops, no murmurs and no rubs GI: Palpation (GI): Soft to palpation and Other GI palpation findings present ( Nontender) Auscultation: normal bowel sounds Extrem: General: No clubbing, No cyanosis and Yes edema (1+ bilateral) Results Laboratory Findings 03/22/25 05:13 03/22/25 05:13 Abnormal lab findings: Abnormal Labs 03/21/25 03/21/25 03/21/25 13:38 14:00 16:00 WBC 16.3 H RBC 4.40 L Hgb Hct 40.9 L MCH 34.1 H MCHC 36.7 H MPV 9.1 L Immature Gran % (Auto) 0.5 H Neut % (Auto) 93.9 H Lymph % (Auto) 3.7 L [place] % (Auto) 1.7 L Lymph # (Auto) 0.6 L Abs Immat Gran (auto) 0.08 H Absolute Neuts (auto) 15.3 H Random Glucose 139 H Lactic Acid 4.7 H* Lactic Acid F/U @ 2Hr 4.7 H* Lactic Acid F/U @ 4Hr Ur Leukocyte Esterase Small (1+) H Urine Cocaine Screen 03/21/25 03/21/25 03/22/25 18:46 19:24 05:13 WBC 13.4 H RBC 4.04 L Hgb 13.7 L Hct 37.8 L MCH 33.9 H MCHC 36.2 H MPV 9.2 L Immature Gran % (Auto) 0.6 H Neut % (Auto) 95.5 H Lymph % (Auto) 2.6 L [place] % (Auto) 1.2 L Lymph # (Auto) 0.4 L Abs Immat Gran (auto) 0.08 H Absolute Neuts (auto) 12.8 H Random Glucose 149 H Lactic Acid Lactic Acid F/U @ 2Hr Lactic Acid F/U @ 4Hr 4.6 H* Ur Leukocyte Esterase Urine Cocaine Screen POSITIVE H Microbiology: Microbiology 03/21/25 Unknown Urine clean catch - Clean Catch Midstream Urine Culture - Final No growth. Assessment and Plan (1) Elevated diaphragm: Status: Acute (2) COPD (chronic obstructive pulmonary disease): Qualifiers: COPD type: emphysema Emphysema type: unspecified Qualified Code(s): J 43.9 - Emphysema, unspecified Status: Acute (3) Orthopnea: Status: Acute Plan Impression: 65-year-old gentleman with underlying COPD on nocturnal supplemental oxygen, orthopnea hospitalized with slowly worsening dyspnea in treated for community-acquired pneumonia. His chest x-ray demonstrate chronically elevated left-sided diaphragm similar to prior. Patient was not able to tolerate CT chest secondary to orthopnea. Does have at least 1+ bilateral lower extremity edema. Recommendation: Would consider 2D echocardiogram. No evidence of lobar pneumonia. Would consider empiric diuresis. Procedures Date of Service Date of Service: 03/22/25
[2025-03-22] MEDS: cefTRIAXone sodium 1 GM VIAL IVPUSH (15:39)
[2025-03-22] MEDS: Omeprazole 20 MG CAPSULE.DR PO (15:39)
--- NOTE | 2025-03-22 17:00 | CA_ITS ---
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 The calculated ejection fraction is 65% by biplane method. - There is mildly increased left ventricular wall thickness. - There is moderate mitral annular calcification. Findings Left Ventricle Normal left ventricular cavity size. There is mildly increased left ventricular wall thickness. The left ventricular systolic function is normal. The calculated ejection fraction is 65% by biplane method. There is no evidence of regional wall motion abnormalities. Evidence suggests grade I (mild) diastolic dysfunction. Right Ventricle Mildly increased right ventricular cavity size. There is normal right ventricular systolic function. Atria The left atrium is mildly dilated. The right atrium is normal in size. Aortic Valve There is a normal trileaflet aortic valve. There is no aortic valve stenosis. There is no aortic valve regurgitation. Mitral Valve There is moderate mitral annular calcification. There is no mitral valve regurgitation. There is no mitral valve stenosis. Pulmonic Valve The pulmonic valve is likely normal. Tricuspid Valve There is trace tricuspid valve regurgitation. There is no evidence of pulmonary hypertension. Great Vessels The asc aorta is normal in size. Venous The inferior vena cava is mildly dilated and collapses greater than 50% with inspiration. Pericardium/Pleural There is no evidence of pericardial effusion. Prior Study Comparison No prior study available for comparison. Measurements 2D Linear Measurements IVSd: 1.23 0.6-0.9/0.6-1.0 cm LVIDd: 4.82 3.9-5.3/4.2-5.9 cm LVIDd Index: 2.28 2.4-3.2/2.2-3.1 cm/m2 LVIDs: 2.90 2.0-3.6 cm LVPWd: 1.28 0.7-1.1 cm LA Diam: 3.80 2.7-3.8/3.0-4.0 cm LAIDs Index: 1.80 1.5-2.3 cm/m2 LV Mass: 293.13 67-162/88-224 g LV Mass Index: 138.92 43-95/49-115 g/m2 LVOT Diam: 2.20 3.0+(-)1.3 cm 2D Systolic Function EF 4C: 66.00 >55% EF 2C: 63.20 >55% EF BiP: 65.00 >55% Mitral Valve MV Pk E: 0.45 MV PK A: 0.77 MV Decel Time: 133.00 E/A: 0.60 E'Lateral: 6.64 E'Medial: 7.07 E/E' Med: 6.40 E/E' Lat: 6.80 PHT: 39.00 MVA PHT: 5.64 Decel Glynn: 3.37 Aortic Valve AoV Pk Leonardo: 1.43 AoV Mn Leonardo: 1.02 AoV VTI: 0.30 AoV Pk Grad: 8.00 Aov Mn Grad: 5.00 JOSE ANTONIO Cont.VTI: 2.65 LVOT LVOT Pk Leonardo: 0.93 LVOT Mn Leonardo: 0.62 LVOT VTI: 0.21 LVOT Pk Grad: 3.00 LVOT Mn Grad: 2.00 LVOT Diam: 2.20 LVOT Area: 3.80 Diastolic Function MV Pk E: 0.45 MV Pk A: 0.77 E/A: 0.60 E'Medial: 7.07 E/E' Med: 6.40 E' Laterial: 6.64 E/E' Lat: 6.80 Right Ventricle TAPSE (mm): 37.60 TVS' Leonardo: 17.00 Tricuspid Valve TR Pk Leonardo: 1.74 TR Pk Grad: 12.00 Great Vessels Aorta Sinus of Valsalva: 3.40 2.0-3.5 cm Ao Asc: 3.20 2.1-3.4 cm Pulmonary Valve PV Pk Leonardo: 1.20 Peak PV Grad: 6.00 Updated in Other Vendor System with Status of Final Anatoliy Cruz MD electronically signed on 03/22/2025 4:35:25 PM with status of Final
[2025-03-22] MEDS: Fluticasone Propionate Nasal 16 GM SPRAY 1 SPRAY NOSTRIL-B (17:07)
[2025-03-22] MEDS: Furosemide 20 MG/2 ML VIAL IVPUSH (17:08)
[2025-03-22] MEDS: Azithromycin 500 MG in 0.9 % Sodium Chloride 250 ML 125 MG IV (17:16)
[2025-03-22] MEDS: Nystatin Oral Susp 500,000 UNIT/5 ML ORAL.SUSP 200000 UNIT PO ×2 (18:12→20:42)
[2025-03-22] MEDS: Atorvastatin Calcium 80 MG TABLET PO (20:41)
[2025-03-22] MEDS: Melatonin 3 MG TABLET 6 MG PO (22:52)
[2025-03-23] VITALS (9 sets, daily range): BP systolic 106–174; BP diastolic 59–78; PULSE 91–106; RESP 16–18; TEMP 36.3–37.4; O2SAT 93–96
[2025-03-23] MEDS: Omeprazole 20 MG CAPSULE.DR PO ×2 (06:04→16:14)
[2025-03-23] MEDS: oxyCODONE HCl Immed Release 5 MG TABLET PO (06:07)
[2025-03-23] MEDS: Albuterol Sulfate (0.083%) 2.5 MG/3 ML VIAL.NEB INHALE ×3 (07:39→19:03)
[2025-03-23] MEDS: Furosemide 20 MG/2 ML VIAL IVPUSH ×2 (09:13→17:10)
[2025-03-23] MEDS: Tamsulosin HCL 0.4 MG CAPSULE PO (09:13)
[2025-03-23] MEDS: Nystatin Oral Susp 500,000 UNIT/5 ML ORAL.SUSP 200000 UNIT PO ×4 (09:14→21:06)
[2025-03-23] MEDS: Gabapentin 300 MG CAPSULE 600 MG PO ×3 (09:14→21:07)
[2025-03-23] MEDS: buPROPion HCl XL 300 MG TAB.ER.24H PO (09:15)
[2025-03-23] MEDS: guaiFENesin LA 600 MG TAB.ER.12H PO ×2 (09:15→21:07)
[2025-03-23] MEDS: Cyanocobalamin (Vitamin B-12) 1,000 MCG TABLET 1000 MCG PO (09:15)
[2025-03-23] MEDS: Fluticasone Propionate Nasal 16 GM SPRAY 1 SPRAY NOSTRIL-B (09:18)
[2025-03-23] MEDS: diazePAM 2 MG TABLET PO ×2 (09:39→14:33)
[2025-03-23 09:45] LABS: B Type Natriuretic Peptide 120 pg/mL (<100)
[2025-03-23 09:49] LABS: Anion Gap 14 (12-20); Blood Urea Nitrogen 15 mg/dL (9-16); Calcium 8.9 mg/dL (8.4-10.2); Carbon Dioxide 27 mmol/L (22-29); Chloride 102 mmol/L (96-108); Creatinine Clr Calc Pharmacy 128.4; Estimated Glomerular Filt Rate > 60; Glucose Fasting 124 mg/dL (60-99); Magnesium 2.1 mg/dL (1.6-2.6); Potassium 4.4 mmol/L (3.3-5.1); Sodium 139 mmol/L (135-145)
[2025-03-23] MEDS: methylPREDNISolone Sod Succ 40 MG/ML VIAL 20 MG IVPUSH ×2 (12:32→21:06)
[2025-03-23 13:12] LABS: Procalcitonin 0.03 ng/mL
--- NOTE | 2025-03-23 13:41 | HO.PM.IMPN ---
Subjective Subjective Date of Service: 03/23/25 Interval History: coughing up sputum dyspnea improved c/o orthopnea anxious Review of Systems Review of Systems: Yes all other systems are reviewed and are negative Physical Exam Vital Signs: Vital Signs: Last Vital Signs Temp 99.3 F 03/23/25 07:42 Pulse 95 03/23/25 11:22 Resp 18 03/23/25 11:22 BP 134/75 03/23/25 09:13 Pulse Ox 94 03/23/25 07:42 O2 Del Method Nasal Cannula 03/23/25 07:42 O2 Flow Rate 2 03/23/25 07:42 BMI result Body Mass Index 28.6 Gen: in no acute distress HEENT: sclera anicteric, moist mucus membranes Neck: supple Lungs: diminished L base Heart: regular rate and rhythm, no murmurs Abd: soft, non-tender, non-distended Ext: no edema Skin: warm/well-perfused Neuro: alert and oriented x3, no focal findings Psych: appropriate affect Objective Data Active Medications Acetaminophen (Acetaminophen 325 Mg Tablet) 650 mg PO Q6H PRN PRN Reason: Pain, Mild 1-3,fever,headache Albuterol Sulfate (Albuterol Sulfate (0.083%) 2.5 Mg/3 Ml Vial.Neb) 2.5 mg INHALE RQ4H WHILE AWAKE [facility] Last Admin: 03/23/25 11:21 Dose: 2.5 mg Documented By: DELMAR Albuterol/Ipratropium (Albuterol/Iprat 2.5/0.5mg 3 Ml Ampul.Neb) 3 ml INHALE RQ4H WHILE AWAKE PRN PRN Reason: Shortness of Breath Alprazolam (Alprazolam 0.25 Mg Tablet) 0.25 mg PO BID PRN PRN Reason: Anxiety Last Admin: 03/22/25 11:31 Dose: 0.25 mg Documented By: YING Apixaban (Apixaban 2.5 Mg Tablet) 2.5 mg PO BID [facility] Last Admin: 03/23/25 08:50 Dose: Not Given Documented By: ARGELIA Non-Admin Reason: Patient Refused Aspirin (Aspirin Enteric Coated 81 Mg Tablet.) 81 mg PO DAILY [facility] Last Admin: 03/23/25 09:52 Dose: Not Given Documented By: ARGELIA Non-Admin Reason: Physician Held Med Atorvastatin Calcium (Atorvastatin Calcium 80 Mg Tablet) 80 mg PO BEDTIME [facility] Last Admin: 03/22/25 20:41 Dose: 80 mg Documented By: TATA Benzonatate (Benzonatate 100 Mg Capsule) 100 mg PO TID PRN PRN Reason: Cough Bupropion HCl (Bupropion Hcl Xl 300 Mg Tab.Er.24h) 300 mg PO DAILY [facility] Last Admin: 03/23/25 09:15 Dose: 300 mg Documented By: ARGELIA Calcium Carbonate (Calcium Carbonate 750 Mg Tab.Chew) 750 mg PO Q4H PRN PRN Reason: Heartburn Ceftriaxone Sodium (Ceftriaxone Sodium 1 Gm Vial) 1 gm IVPUSH Q24H [facility] Last Admin: 03/22/25 15:39 Dose: 1 gm Documented By: YING Cyanocobalamin (Cyanocobalamin (Vitamin B-12) 1,000 Mcg Tablet) 1,000 mcg PO DAILY [facility] Last Admin: 03/23/25 09:15 Dose: 1,000 mcg Documented By: ARGELIA Fluticasone Propionate (Fluticasone Propionate Nasal 16 Gm [place]) 1 spray NOSTRIL-B DAILY [facility] Last Admin: 03/23/25 09:18 Dose: 1 spray Documented By: ARGELIA Furosemide (Furosemide 20 Mg/2 Ml Vial) 20 mg IVPUSH BID@0900,1800 [facility]; Protocol Last Admin: 03/23/25 09:13 Dose: 20 mg Documented By: ARGELIA Gabapentin (Gabapentin 300 Mg Capsule) 600 mg PO TID [facility] Last Admin: 03/23/25 09:14 Dose: 600 mg Documented By: ARGLEIA Guaifenesin (Guaifenesin La 600 Mg Tab.Er.12h) 600 mg PO BID [facility] Last Admin: 03/23/25 09:15 Dose: 600 mg Documented By: ARGELIA Guaifenesin/Dextromethorphan (Guaifenesin Dm 100/10/5 Ml 5 Ml Syrup) 5 ml PO Q6H PRN PRN Reason: Cough Last Admin: 03/22/25 17:07 Dose: 5 ml Documented By: YING Azithromycin 500 mg/ Sodium (Chloride) 250 mls @ 125 mls/hr IV Q24H [facility] Last Infusion: 03/22/25 19:16 Dose: Infused Documented By: TATA Magnesium Hydroxide (Milk Of Magnesia 30 Ml Oral.Susp) 30 ml PO DAILY PRN PRN Reason: Constipation Melatonin (Melatonin 3 Mg Tablet) 6 mg PO BEDTIME PRN PRN Reason: Insomnia Last Admin: 03/22/25 22:52 Dose: 6 mg Documented By: TATA Methylprednisolone Sodium Succinate (Methylprednisolone Sod Succ 40 Mg/Ml Vial) 20 mg IVPUSH Q12H [facility] Last Admin: 03/23/25 12:32 Dose: 20 mg Documented By: ARGELIA Nicotine Polacrilex (Nicotine Polacrilex 2 Mg Gum) 2 mg BUCCAL Q2H PRN PRN Reason: Nicotine Cravings Nystatin (Nystatin Oral Susp 500,000 Unit/5 Ml Oral.Susp) 200,000 unit PO QID [facility]; Protocol Last Admin: 03/23/25 12:33 Dose: 200,000 unit Documented By: ARGELIA Omeprazole (Omeprazole 20 Mg Capsule.Dr) 20 mg PO BID@0630,1630 [facility] Last Admin: 03/23/25 06:04 Dose: 20 mg Documented By: TATA Ondansetron HCl (Ondansetron Hcl 4 Mg/2 Ml Vial) 4 mg IVPUSH Q8H PRN PRN Reason: Nausea and Vomiting Oxycodone HCl (Oxycodone Hcl Immed Release 5 Mg Tablet) 5 mg PO Q4H PRN PRN Reason: Pain, Moderate(Pain Scale 4-6) Last Admin: 03/23/25 06:07 Dose: 5 mg Documented By: TATA Sodium Chloride (0.9 % Sodium Chloride Flush 3 Ml Syringe) 3 ml IVFLUSH QSHIFT [facility] Last Admin: 03/23/25 08:50 Dose: Not Given Documented By: ARGELIA Non-Admin Reason: Previously Administered Tamsulosin HCl (Tamsulosin Hcl 0.4 Mg Capsule) 0.4 mg PO DAILY [facility] Last Admin: 03/23/25 09:13 Dose: 0.4 mg Documented By: ARGELIA Labs 03/22/25 05:13 03/23/25 08:42 Labs: Laboratory Results - last 24 hr 03/23/25 08:42 Anion Gap 14 Estim Creat Clear Calc 128.4 Estimated GFR > 60 Fasting Glucose 124 H Calcium 8.9 Magnesium 2.1 B-Natriuretic Peptide 120 H Procalcitonin 0.03 Microbiology Microbiology Results: Microbiology 03/21/25 13:38 Blood Culture - Preliminary Blood - Venous No growth after 24 hours. 03/21/25 13:38 Blood Culture - Preliminary Blood - Venous No growth after 24 hours. Assessment and Plan (1) Generalized anxiety disorder: Status: Acute Plan d3 for 65yo M with COPD, pAF, HLD, GERD, BPH, tobacco abuse admitted with severe sepsis due to PNA pneumonia COPD exacerbation - continue IV methylprednisolone, 03/21- ceftriaxone + azithromycin, nebs - Pulm consulted, diuresing empirically, previously scheduled outpt bronchoscopy will be done tomorrow - TTE 03/22: - The left ventricular systolic function is normal. The calculated ejection fraction is 65% by biplane method. - There is mildly increased left ventricular wall thickness. - There is moderate mitral annular calcification. acute hypoxic respiratory failure - supplemental O2, wean as tolerated pAF - hold apixaban for bronchoscopy - not on rate control meds mood disorder - alprazolam, bupropion HLD - statin GERD - PPI knee pain - prn oxycodone BPH - continue tamsulosin tobacco abuse - NRT cocaine abuse - Addiction Medicine consult, screen HBV/HCV/HIV VTE ppx - apixaban held for bronchoscopy In my clinical judgment, the patient requires continued inpatient hospitalization for the following reasons: bronchoscopy, hypoxia Total time managing care of this patient today: 40 minutes. Quality Stroke Does the patient have a stroke diagnosis?: No VTE Prior VTE?: No VTE Risk Level:: Medical - moderate - high VTE Device Contraindication: Treatment Not Indicated VTE Drug Contraindication: N/A - Med Ordered
[2025-03-23 14:12] LABS: MRSA Nasal PCR NEGATIVE (Negative); SA Nasal PCR NEGATIVE (Negative)
[2025-03-23] MEDS: guaiFENesin DM 100/10/5 ML 5 ML SYRUP PO ×2 (14:36→23:05)
--- NOTE | 2025-03-23 14:55 | HO.ADDICTCON ---
History of Present Illness Date of Service: 03/23/2025 Chief Complaint: sepsis, pneumonia Reason for Consult: +UDS Sources of Information: patient interviewed and chart reviewed HPI Narrative: Patient is a 65 year old male with COPD, medically admitted with sepsis and pneumonia Consult requested due to +UDS (cocaine) Patient seen in room 353, he is awake, alert somewhat engaged in interview. He reports he used cocaine the day before coming to the hospital because someone told him it would help him clear my throat and help my breathing He states he used one line IN. He denies any ongoing use, and reports it is not something he plans to try again. Declined to discuss this any further. Briefly discussed alcohol use. He reports that he drinks 3 beers daily and does not view this as an issue. He states that this does not impact his life in any way, and enjoys it. Medical Evaluation Reviewed: Yes Review of Systems Constitutional: Reports as per HPI Diagnostics Vital Signs (24Hr): Vital Signs - 24 hr 03/22/25 15:32 03/22/25 16:00 03/22/25 17:08 Temperature 98.4 F Pulse Rate 95 96 Respiratory Rate 18 18 Blood Pressure 137/92 H 137/92 H Pulse Oximetry 93 Oxygen Delivery Method Room Air Oxygen Flow Rate 03/22/25 19:44 03/22/25 19:46 03/23/25 04:00 Temperature 97.2 F 98.9 F Pulse Rate 94 97 91 Respiratory Rate 18 17 16 Blood Pressure 134/87 125/60 Pulse Oximetry 93 94 Oxygen Delivery Method Nasal Cannula Nasal Cannula Oxygen Flow Rate 2 2 03/23/25 07:40 03/23/25 07:42 03/23/25 09:13 Temperature 99.3 F Pulse Rate 91 95 Respiratory Rate 16 18 Blood Pressure 168/78 H 134/75 Pulse Oximetry 94 Oxygen Delivery Method Nasal Cannula Oxygen Flow Rate 2 03/23/25 11:22 Temperature Pulse Rate 95 Respiratory Rate 18 Blood Pressure Pulse Oximetry Oxygen Delivery Method Oxygen Flow Rate BMI result Body Mass Index 28.6 Labs 03/24/25 06:08 03/24/25 06:08 Labs: Laboratory Results - last 48 hr 03/21/25 03/21/25 03/21/25 15:48 16:00 18:46 WBC RBC Hgb Hct MCV MCH MCHC RDW Plt Count MPV Immature Gran % (Auto) Neut % (Auto) Lymph % (Auto) [place] % (Auto) Eos % (Auto) Baso % (Auto) Lymph # (Auto) [place] # (Auto) Eos # (Auto) Baso # (Auto) Abs Immat Gran (auto) Absolute Neuts (auto) Absolute Nucleated RBC Nucleated RBC % (auto) Smear Tech's Comments Sodium Potassium Chloride Carbon Dioxide Anion Gap BUN Creatinine Estim Creat Clear Calc Estimated GFR Random Glucose Fasting Glucose Lactic Acid F/U @ 2Hr 4.7 H* Lactic Acid F/U @ 4Hr 4.6 H* Calcium Magnesium B-Natriuretic Peptide Procalcitonin Nasal Screen MRSA (PCR) Nasal S. aureus Screen Nasal MRSA/S.aureus Interp Urine Opiates Screen Ur Buprenorphine Scrn Ur Oxycodone Screen Urine Methadone Screen Urine Fentanyl Screen Ur Barbiturates Screen Ur Phencyclidine Scrn Ur Amphetamines Screen U Benzodiazepines Scrn Urine Cocaine Screen U Marijuana (THC) Screen S. pyogenes GrpA ADELINE Negative 03/21/25 03/22/25 03/23/25 19:24 05:13 08:42 WBC 13.4 H RBC 4.04 L Hgb 13.7 L Hct 37.8 L MCV 93.6 MCH 33.9 H MCHC 36.2 H RDW 15.0 Plt Count 184 MPV 9.2 L Immature Gran % (Auto) 0.6 H Neut % (Auto) 95.5 H Lymph % (Auto) 2.6 L [place] % (Auto) 1.2 L Eos % (Auto) 0.0 Baso % (Auto) 0.1 Lymph # (Auto) 0.4 L [place] # (Auto) 0.2 Eos # (Auto) 0.0 Baso # (Auto) 0.0 Abs Immat Gran (auto) 0.08 H Absolute Neuts (auto) 12.8 H Absolute Nucleated RBC 0.000 Nucleated RBC % (auto) 0.0 Smear Tech's Comments VERIFIED Sodium 136 139 Potassium 4.2 4.4 Chloride 104 102 Carbon Dioxide 22 27 Anion Gap 14 14 BUN 13 15 Creatinine 0.60 0.65 Estim Creat Clear Calc 139.2 128.4 Estimated GFR > 60 > 60 Random Glucose 149 H Fasting Glucose 124 H Lactic Acid F/U @ 2Hr Lactic Acid F/U @ 4Hr Calcium 8.5 8.9 Magnesium 2.1 B-Natriuretic Peptide 120 H Procalcitonin 0.03 Nasal Screen MRSA (PCR) Nasal S. aureus Screen Nasal MRSA/S.aureus Interp Urine Opiates Screen Not Detected Ur Buprenorphine Scrn Not Detected Ur Oxycodone Screen Not Detected Urine Methadone Screen Not Detected Urine Fentanyl Screen Not Detected Ur Barbiturates Screen Not Detected Ur Phencyclidine Scrn Not Detected Ur Amphetamines Screen Not Detected U Benzodiazepines Scrn Not Detected Urine Cocaine Screen POSITIVE H U Marijuana (THC) Screen Not Detected S. pyogenes GrpA ADELINE 03/23/25 12:45 WBC RBC Hgb Hct MCV MCH MCHC RDW Plt Count MPV Immature Gran % (Auto) Neut % (Auto) Lymph % (Auto) [place] % (Auto) Eos % (Auto) Baso % (Auto) Lymph # (Auto) [place] # (Auto) Eos # (Auto) Baso # (Auto) Abs Immat Gran (auto) Absolute Neuts (auto) Absolute Nucleated RBC Nucleated RBC % (auto) Smear Tech's Comments Sodium Potassium Chloride Carbon Dioxide Anion Gap BUN Creatinine Estim Creat Clear Calc Estimated GFR Random Glucose Fasting Glucose Lactic Acid F/U @ 2Hr Lactic Acid F/U @ 4Hr Calcium Magnesium B-Natriuretic Peptide Procalcitonin Nasal Screen MRSA (PCR) NEGATIVE Nasal S. aureus Screen NEGATIVE Nasal MRSA/S.aureus Interp SEE NOTE Urine Opiates Screen Ur Buprenorphine Scrn Ur Oxycodone Screen Urine Methadone Screen Urine Fentanyl Screen Ur Barbiturates Screen Ur Phencyclidine Scrn Ur Amphetamines Screen U Benzodiazepines Scrn Urine Cocaine Screen U Marijuana (THC) Screen S. pyogenes GrpA ADELINE Imaging Radiology Impressions: ITS Impressions Chest X-Ray 03/21/25 13:04 IMPRESSION: Cardiomegaly. COPD. Atelectasis versus pneumonia at the left lung base with a probable associated tiny pleural effusion. Electronically signed by: Basilio Romero MD 03/21/2025 01:30 PM EDT Mental Status Exam Mental Status Exam Patient Appearance: Well Grooomed and Appropriate Level of Consciousness: Awake, Appropriate and Alert Patient Behavior: Appropriate and Talkative Affect Description: Calm Speech Pattern: Clear Hallucinations: None Thought Process: Intact Thought Content: positive for Intact Judgement: Fair Medications Medications Current Medications Acetaminophen (Acetaminophen 325 Mg Tablet) 650 mg PO Q6H PRN PRN Reason: Pain, Mild 1-3,fever,headache Albuterol Sulfate (Albuterol Sulfate (0.083%) 2.5 Mg/3 Ml Vial.Neb) 2.5 mg INHALE RQ4H WHILE AWAKE [facility] Last Admin: 03/23/25 11:21 Dose: 2.5 mg Albuterol/Ipratropium (Albuterol/Iprat 2.5/0.5mg 3 Ml Ampul.Neb) 3 ml INHALE RQ4H WHILE AWAKE PRN PRN Reason: Shortness of Breath Alprazolam (Alprazolam 0.25 Mg Tablet) 0.25 mg PO BID PRN PRN Reason: Anxiety Last Admin: 03/22/25 11:31 Dose: 0.25 mg Apixaban (Apixaban 2.5 Mg Tablet) 2.5 mg PO BID [facility] Last Admin: 03/23/25 08:50 Dose: Not Given Aspirin (Aspirin Enteric Coated 81 Mg Tablet.Dr) 81 mg PO DAILY [facility] Last Admin: 03/23/25 09:52 Dose: Not Given Atorvastatin Calcium (Atorvastatin Calcium 80 Mg Tablet) 80 mg PO BEDTIME [facility] Last Admin: 03/22/25 20:41 Dose: 80 mg Benzonatate (Benzonatate 100 Mg Capsule) 100 mg PO TID PRN PRN Reason: Cough Bupropion HCl (Bupropion Hcl Xl 300 Mg Tab.Er.24h) 300 mg PO DAILY [facility] Last Admin: 03/23/25 09:15 Dose: 300 mg Calcium Carbonate (Calcium Carbonate 750 Mg Tab.Chew) 750 mg PO Q4H PRN PRN Reason: Heartburn Ceftriaxone Sodium (Ceftriaxone Sodium 1 Gm Vial) 1 gm IVPUSH Q24H [facility] Last Admin: 03/22/25 15:39 Dose: 1 gm Cyanocobalamin (Cyanocobalamin (Vitamin B-12) 1,000 Mcg Tablet) 1,000 mcg PO DAILY [facility] Last Admin: 03/23/25 09:15 Dose: 1,000 mcg Fluticasone Propionate (Fluticasone Propionate Nasal 16 Gm [place]) 1 spray NOSTRIL-B DAILY [facility] Last Admin: 03/23/25 09:18 Dose: 1 spray Furosemide (Furosemide 20 Mg/2 Ml Vial) 20 mg IVPUSH BID@0900,1800 [facility]; Protocol Last Admin: 03/23/25 09:13 Dose: 20 mg Gabapentin (Gabapentin 300 Mg Capsule) 600 mg PO TID [facility] Last Admin: 03/23/25 14:33 Dose: 600 mg Guaifenesin (Guaifenesin [place] 600 Mg Tab.Er.12h) 600 mg PO BID [facility] Last Admin: 03/23/25 09:15 Dose: 600 mg Guaifenesin/Dextromethorphan (Guaifenesin Dm 100/10/5 Ml 5 Ml Syrup) 5 ml PO Q6H PRN PRN Reason: Cough Last Admin: 03/23/25 14:36 Dose: 5 ml Azithromycin 500 mg/ Sodium (Chloride) 250 mls @ 125 mls/hr IV Q24H [facility] Last Infusion: 03/22/25 19:16 Dose: Infused Magnesium Hydroxide (Milk Of Magnesia 30 Ml Oral.Susp) 30 ml PO DAILY PRN PRN Reason: Constipation Melatonin (Melatonin 3 Mg Tablet) 6 mg PO BEDTIME PRN PRN Reason: Insomnia Last Admin: 03/22/25 22:52 Dose: 6 mg Methylprednisolone Sodium Succinate (Methylprednisolone Sod Succ 40 Mg/Ml Vial) 20 mg IVPUSH Q12H [facility] Last Admin: 03/23/25 12:32 Dose: 20 mg Nicotine Polacrilex (Nicotine Polacrilex 2 Mg Gum) 2 mg BUCCAL Q2H PRN PRN Reason: Nicotine Cravings Nystatin (Nystatin Oral Susp 500,000 Unit/5 Ml Oral.Susp) 200,000 unit PO QID [facility]; Protocol Last Admin: 03/23/25 12:33 Dose: 200,000 unit Omeprazole (Omeprazole 20 Mg Capsule.Dr) 20 mg PO BID@0630,1630 [facility] Last Admin: 03/23/25 06:04 Dose: 20 mg Ondansetron HCl (Ondansetron Hcl 4 Mg/2 Ml Vial) 4 mg IVPUSH Q8H PRN PRN Reason: Nausea and Vomiting Oxycodone HCl (Oxycodone Hcl Immed Release 5 Mg Tablet) 5 mg PO Q4H PRN PRN Reason: Pain, Moderate(Pain Scale 4-6) Last Admin: 03/23/25 06:07 Dose: 5 mg Sodium Chloride (0.9 % Sodium Chloride Flush 3 Ml Syringe) 3 ml IVFLUSH QSHIFT [facility] Last Admin: 03/23/25 08:50 Dose: Not Given Tamsulosin HCl (Tamsulosin Hcl 0.4 Mg Capsule) 0.4 mg PO DAILY [facility] Last Admin: 03/23/25 09:13 Dose: 0.4 mg Allergies Allergies Allergy/AdvReac Type Severity Reaction Status Date / Time divalproex sodium [Depakote] Allergy Unknown Unknown Verified 03/21/25 12:51 rosuvastatin Allergy Unknown SOB Verified 03/21/25 12:51 finasteride Allergy Intermediate Hives Uncoded 03/21/25 12:51 Assessment & Plan Assessment & Plan (1) Acute exacerbation of chronic obstructive pulmonary disease: Status: Acute Code(s): J44.1 - Chronic obstructive pulmonary disease with (acute) exacerbation Assessment and Plan: patient denies ongoing substance use aware that cocaine use will likely exacerbate any respiratory sx he is experiencing reviewed overdose prevention no additional follow up necessary at this time Total time managing care of this patient today _30__ minutes. [facility] Past Medical History Medical History (Updated 03/22/25 @ 11:55 by Uri Rust MD) COPD with acute exacerbation SOB (shortness of breath) Anxiety Smoker Pharyngitis COPD (chronic obstructive pulmonary disease) Arthritis Abdominal hernia Numbness Tinea cruris Pes anserinus bursitis of left knee Rib fractures Osteoarthritis of right hip Right hip pain Sinus congestion Overweight (BMI 25.0-29.9) Urgency of micturition Carpal tunnel syndrome Femoral fracture Pulmonary nodule BPH (benign prostatic hyperplasia) Seizure disorder Insomnia Vitamin D deficiency Impaired glucose tolerance Hypercholesterolemia GERD (gastroesophageal reflux disease) Polysubstance abuse Left subclavian artery occlusion Brain aneurysm CVA (cerebral vascular accident) Vocal cord polyp Vitamin B12 deficiency Family History Family History Father CAD (coronary artery disease) Kidney malignancy Mother Myocardial infarction Brother Prostate cancer Surgical History Surgical History (Updated 03/18/25 @ 00:02 by Isa Lewis) History of nasal surgery H/O colonoscopy Stenosis of subclavian bypass History of surgery History of orthopedic surgery History of knee replacement procedure of right knee Social History Social History Household Members: Other Household Members Other:: roomate Housing: House Housing Other:: mobile home Are you a primary healthcare prof to a significant other at home: No Do you presently have visiting nurse or other home services: Yes 75 years or older and lives alone: No Unable to assess alcohol history related to: Unknown Alcohol intake: current Alcohol intake frequency: a few times a week Alcohol type: beer Comment: 4 drinks last night Patient Tobacco Use Status: Former Tobacco user Tobacco use type: Cigarette Cigarette Packs Per Day: 5 Cigarettes Per Day: 0.25 Years Smoked: 55 e-Cigarette/Vaping Use: Never Used Second Hand Smoke Exposure: No Substance Use Type: Crack/Cocaine service: No Current occupational status: unemployed Cognitive needs: Yes (Cane) Hearing needs: No Vision needs: Yes
--- NOTE | 2025-03-23 15:40 | MHC.CM.PN ---
per linnea today pt not medicvally stable expected to be ready fri dc plan remaions home w/vna
[2025-03-23] MEDS: iohexoL 350 MG/ML 100 ML INFUS..BTL IV (15:52)
[2025-03-23] MEDS: cefTRIAXone sodium 1 GM VIAL IVPUSH (16:14)
[2025-03-23] MEDS: oxyCODONE HCl Immed Release 5 MG TABLET 7.5 MG PO ×2 (17:11→22:59)
[2025-03-23] MEDS: Acetaminophen 325 MG TABLET 650 MG PO (17:11)
[2025-03-23] MEDS: Azithromycin 500 MG in 0.9 % Sodium Chloride 250 ML 125 MG IV (17:12)
[2025-03-23] MEDS: Atorvastatin Calcium 80 MG TABLET PO (21:07)
[2025-03-23] MEDS: 0.9 % Sodium Chloride Flush 3 ML SYRINGE IVFLUSH (21:08)
[2025-03-23] MEDS: Melatonin 3 MG TABLET 6 MG PO (23:03)
[2025-03-24] VITALS (13 sets, daily range): BP systolic 94–177; BP diastolic 60–80; PULSE 80–93; RESP 14–20; TEMP 36.1–37.3; O2SAT 90–95
[2025-03-24 04:39] LABS: HBc Num1 0.06 S/CO (0.00-0.79); HBsAGNum1 0.32 S/CO (0.00-0.99); HIV AB/AG Nonreactive (Nonreactive); HIV Num 1 0.05 S/CO (0.00-0.99); Hepatitis B Core Antibody Nonreactive (Nonreactive); Hepatitis B Surface Antigen Negative (Negative); ~HepC Num1 0.07 S/CO (0.00-0.79); ~Hepatitis B Surface Antibody NONREACTIVE (Nonreactive); ~Hepatitis C Antibody Nonreactive (Nonreactive)
[2025-03-24 06:19] LABS: Hematocrit 38.5 % (42.0-52.0); Hemoglobin 13.5 g/dl (14.0-18.0); Mean Corpuscular HGB Conc 35.1 g/dl (31.0-36.0); Mean Platelet Volume 9.6 fL (9.4-12.4); Platelet Count 176 X10*3/uL (160-400); Red Blood Count 3.97 X10*6/uL (4.60-5.80); Red Cell Distribution Width 15.2 % (11.0-16.0); White Blood Count 13.3 X10*3/uL (4.8-10.8)
[2025-03-24 06:31] LABS: Anion Gap 11 (12-20); Blood Urea Nitrogen 18 mg/dL (9-16); Calcium 8.7 mg/dL (8.4-10.2); Carbon Dioxide 32 mmol/L (22-29); Chloride 102 mmol/L (96-108); Creatinine Clr Calc Pharmacy 126.5; Estimated Glomerular Filt Rate > 60; Glucose Random 131 mg/dL (60-115); Potassium 4.8 mmol/L (3.3-5.1); Sodium 140 mmol/L (135-145)
[2025-03-24 06:36] LABS: B Type Natriuretic Peptide 118 pg/mL (<100)
[2025-03-24] MEDS: Albuterol Sulfate (0.083%) 2.5 MG/3 ML VIAL.NEB INHALE ×2 (07:59→15:34)
[2025-03-24] MEDS: Nystatin Oral Susp 500,000 UNIT/5 ML ORAL.SUSP 200000 UNIT PO ×2 (08:37→14:36)
[2025-03-24] MEDS: Tamsulosin HCL 0.4 MG CAPSULE PO (08:38)
[2025-03-24] MEDS: Furosemide 20 MG/2 ML VIAL IVPUSH (08:38)
[2025-03-24] MEDS: buPROPion HCl XL 300 MG TAB.ER.24H PO (08:39)
[2025-03-24] MEDS: Fluticasone Propionate Nasal 16 GM SPRAY 1 SPRAY NOSTRIL-B (08:39)
[2025-03-24] MEDS: Cyanocobalamin (Vitamin B-12) 1,000 MCG TABLET 1000 MCG PO (08:39)
[2025-03-24] MEDS: guaiFENesin LA 600 MG TAB.ER.12H PO (08:39)
[2025-03-24] MEDS: guaiFENesin DM 100/10/5 ML 5 ML SYRUP PO (08:54)
[2025-03-24] MEDS: Gabapentin 300 MG CAPSULE 600 MG PO ×2 (08:54→14:35)
[2025-03-24] MEDS: oxyCODONE HCl Immed Release 5 MG TABLET 7.5 MG PO ×2 (08:55→14:52)
[2025-03-24] MEDS: 0.9 % Sodium Chloride Flush 3 ML SYRINGE IVFLUSH ×2 (08:56→14:52)
--- NOTE | 2025-03-24 11:39 | MHC.SHP ---
Pre-Procedural Eval Section A - 24 Hr Update-Section A only Date of Service: 03/24/25 The patient is an INPATIENT: Yes Section B - Complete if H&P > 30 days Chief Complaint: sepsis, pneumonia Allergies: Allergies Allergy/AdvReac Type Severity Reaction Status Date / Time divalproex sodium [Depakote] Allergy Unknown Unknown Verified 03/21/25 12:51 rosuvastatin Allergy Unknown SOB Verified 03/21/25 12:51 finasteride Allergy Intermediate Hives Uncoded 03/21/25 12:51 Plan I have reviewed the history and physical and performed a pertinent physical examination on my patient. No changes have occurred unless specified. Time Spent With Patient Time: Total time managing care of this patient today ____ minutes.
--- NOTE | 2025-03-24 13:00 | HO.ANESPROP2 ---
HPI - Anesthesia Eval Consult details Narrative: 65 yo M presenting for bronchoscopy Hx of CVA with residual left facial droop and a few numb fingers in the left hand PMFSH Active Problems Active Problems: All Active Problems Orthopnea (Acute) Elevated diaphragm (Acute) Severe sepsis (Acute) Acute exacerbation of chronic obstructive pulmonary disease (Acute) Avascular necrosis of left femoral head (Acute) Canker sores oral (Acute) Pain in left leg (Acute) Acute pain of left hip (Acute) Asymmetrical sensorineural hearing loss (Acute) Somnolence, daytime (Acute) Acute bacterial pharyngitis (Acute) Dysphagia (Acute) Hearing difficulty (Acute) Medicare annual wellness visit, subsequent (Acute) Pharyngitis (Acute) Pain of left lateral upper thigh (Acute) Lateral epicondylitis, right elbow (Acute) Olecranon bursitis of right elbow (Acute) Cough (Acute) Contusion of right elbow (Acute) Injury of elbow, right (Acute) Vitamin B12 deficiency (Acute) PSA elevation (Acute) History of total right hip replacement (Acute) Blister of groin with infection (Acute) Sinusitis (Acute) Preop exam for internal medicine (Acute) Headache (Acute) Wheezing (Acute) PSA elevation (Acute) Lipoma (Acute) Nipple pain (Acute) Generalized anxiety disorder (Acute) Trochanteric bursitis, right hip (Acute) Strain of right hip adductor muscle (Acute) Right thigh pain (Acute) Benign positional vertigo (Acute) Tubular adenoma of colon (Acute) Annual physical exam (Acute) Otitis externa (Acute) Hemorrhoids (Acute) Alcohol abuse (Acute) Obesity (BMI 30.0-34.9) (Acute) Rib pain on left side (Acute) Tongue lesion (Acute) Osteoarthritis of left knee (Acute) Tobacco abuse (Acute) Tinea cruris (Acute) COPD (chronic obstructive pulmonary disease) (Acute) Osteoarthritis of right hip (Acute) Right hip pain (Acute) Left subclavian artery occlusion (Acute) CVA (cerebral vascular accident) (Acute) BPH (benign prostatic hyperplasia) (Acute) Impaired glucose tolerance (Acute) Hypercholesterolemia (Acute) GERD (gastroesophageal reflux disease) (Acute) Past Medical History Medical History (Updated 03/22/25 @ 11:55 by Uri Rust MD) COPD with acute exacerbation SOB (shortness of breath) Anxiety Smoker Pharyngitis COPD (chronic obstructive pulmonary disease) Arthritis Abdominal hernia Numbness Tinea cruris Pes anserinus bursitis of left knee Rib fractures Osteoarthritis of right hip Right hip pain Sinus congestion Overweight (BMI 25.0-29.9) Urgency of micturition Carpal tunnel syndrome Femoral fracture Pulmonary nodule BPH (benign prostatic hyperplasia) Seizure disorder Insomnia Vitamin D deficiency Impaired glucose tolerance Hypercholesterolemia GERD (gastroesophageal reflux disease) Polysubstance abuse Left subclavian artery occlusion Brain aneurysm CVA (cerebral vascular accident) Vocal cord polyp Vitamin B12 deficiency Family History Family History Father CAD (coronary artery disease) Kidney malignancy Mother Myocardial infarction Brother Prostate cancer Family history of problems with anesthesia: No Surgical History Surgical History (Updated 03/18/25 @ 00:02 by Isa Lewis) History of nasal surgery H/O colonoscopy Stenosis of subclavian bypass History of surgery History of orthopedic surgery History of knee replacement procedure of right knee History of Problems with Anesthesia: No Social History Social History Household Members: Other Household Members Other:: roomate Housing: House Housing Other:: mobile home Are you a primary careers counsellor to a significant other at home: No Do you presently have visiting nurse or other home services: Yes 75 years or older and lives alone: No Unable to assess alcohol history related to: Unknown Alcohol intake: current Alcohol intake frequency: a few times a week Alcohol type: beer Comment: 4 drinks last night Patient Tobacco Use Status: Former Tobacco user Tobacco use type: Cigarette Cigarette Packs Per Day: 5 Cigarettes Per Day: 0.25 Years Smoked: 55 e-Cigarette/Vaping Use: Never Used Second Hand Smoke Exposure: No Substance Use Type: Crack/Cocaine service: No Current occupational status: unemployed Cognitive needs: Yes (Cane) Hearing needs: No Vision needs: Yes Meds Allergies Allergy/AdvReac Type Severity Reaction Status Date / Time divalproex sodium [Depakote] Allergy Unknown Unknown Verified 03/21/25 12:51 rosuvastatin Allergy Unknown SOB Verified 03/21/25 12:51 finasteride Allergy Intermediate Hives Uncoded 03/21/25 12:51 Active Medications: Current Medications Acetaminophen (Acetaminophen 325 Mg Tablet) 650 mg PO Q6H PRN PRN Reason: Pain, Mild 1-3,fever,headache Last Admin: 03/23/25 17:11 Dose: 650 mg Albuterol Sulfate (Albuterol Sulfate (0.083%) 2.5 Mg/3 Ml Vial.Neb) 2.5 mg INHALE RQ4H WHILE AWAKE [facility] Last Admin: 03/24/25 11:43 Dose: Not Given Albuterol/Ipratropium (Albuterol/Iprat 2.5/0.5mg 3 Ml Ampul.Neb) 3 ml INHALE RQ4H WHILE AWAKE PRN PRN Reason: Shortness of Breath Alprazolam (Alprazolam 0.25 Mg Tablet) 0.25 mg PO BID PRN PRN Reason: Anxiety Last Admin: 03/22/25 11:31 Dose: 0.25 mg Apixaban (Apixaban 2.5 Mg Tablet) 2.5 mg PO BID [facility] Last Admin: 03/24/25 07:17 Dose: Not Given Aspirin (Aspirin Enteric Coated 81 Mg Tablet.) 81 mg PO DAILY [facility] Last Admin: 03/24/25 07:17 Dose: Not Given Atorvastatin Calcium (Atorvastatin Calcium 80 Mg Tablet) 80 mg PO BEDTIME [facility] Last Admin: 03/23/25 21:07 Dose: 80 mg Benzonatate (Benzonatate 100 Mg Capsule) 100 mg PO TID PRN PRN Reason: Cough Bupropion HCl (Bupropion Hcl Xl 300 Mg Tab.Er.24h) 300 mg PO DAILY [facility] Last Admin: 03/24/25 08:39 Dose: 300 mg Calcium Carbonate (Calcium Carbonate 750 Mg Tab.Chew) 750 mg PO Q4H PRN PRN Reason: Heartburn Ceftriaxone Sodium (Ceftriaxone Sodium 1 Gm Vial) 1 gm IVPUSH Q24H [facility] Last Admin: 03/23/25 16:14 Dose: 1 gm Cyanocobalamin (Cyanocobalamin (Vitamin B-12) 1,000 Mcg Tablet) 1,000 mcg PO DAILY [facility] Last Admin: 03/24/25 08:39 Dose: 1,000 mcg Fentanyl (Fentanyl Citrate/Pf 100 Mcg/2 Ml Vial) 25 mcg IVPUSH Q5M PRN PRN Reason: Pain, Moderate to Severe (Pain Scale 4-10) Stop: 03/24/25 18:59 Fluticasone Propionate (Fluticasone Propionate Nasal 16 Gm [place]) 1 spray NOSTRIL-B DAILY [facility] Last Admin: 03/24/25 08:39 Dose: 1 spray Furosemide (Furosemide 20 Mg/2 Ml Vial) 20 mg IVPUSH BID@0900,1800 [facility]; Protocol Last Admin: 03/24/25 08:38 Dose: 20 mg Gabapentin (Gabapentin 300 Mg Capsule) 600 mg PO TID [facility] Last Admin: 03/24/25 08:54 Dose: 600 mg Guaifenesin (Guaifenesin La 600 Mg Tab.Er.12h) 600 mg PO BID [facility] Last Admin: 03/24/25 08:39 Dose: 600 mg Guaifenesin/Dextromethorphan (Guaifenesin Dm 100/10/5 Ml 5 Ml Syrup) 5 ml PO Q6H PRN PRN Reason: Cough Last Admin: 03/24/25 08:54 Dose: 5 ml Haloperidol Lactate (Haloperidol Lactate 5 Mg/Ml Vial) 0.5 mg IVPUSH ONCE PRN PRN Reason: intractable nausea Stop: 03/24/25 18:59 Azithromycin 500 mg/ Sodium (Chloride) 250 mls @ 125 mls/hr IV Q24H [facility] Last Infusion: 03/23/25 19:20 Dose: Infused Magnesium Hydroxide (Milk Of Magnesia 30 Ml Oral.Susp) 30 ml PO DAILY PRN PRN Reason: Constipation Melatonin (Melatonin 3 Mg Tablet) 6 mg PO BEDTIME PRN PRN Reason: Insomnia Last Admin: 03/23/25 23:03 Dose: 6 mg Methylprednisolone Sodium Succinate (Methylprednisolone Sod Succ 40 Mg/Ml Vial) 20 mg IVPUSH Q12H [facility] Last Admin: 03/23/25 21:06 Dose: 20 mg Naloxone HCl (Naloxone Hcl 0.4 Mg/Ml Vial) 0.04 mg IVPUSH Q5M PRN PRN Reason: Excessive sedation or RR < 8 Nicotine Polacrilex (Nicotine Polacrilex 2 Mg Gum) 2 mg BUCCAL Q2H PRN PRN Reason: Nicotine Cravings Nystatin (Nystatin Oral Susp 500,000 Unit/5 Ml Oral.Susp) 200,000 unit PO QID [facility]; Protocol Last Admin: 03/24/25 08:37 Dose: 200,000 unit Omeprazole (Omeprazole 20 Mg Capsule.Dr) 20 mg PO BID@0630,1630 [facility] Last Admin: 03/24/25 06:12 Dose: Not Given Ondansetron HCl (Ondansetron Hcl 4 Mg/2 Ml Vial) 4 mg IVPUSH Q8H PRN PRN Reason: Nausea and Vomiting Oxycodone HCl (Oxycodone Hcl Immed Release 5 Mg Tablet) 7.5 mg PO Q4H PRN PRN Reason: Pain, Moderate(Pain Scale 4-6) Last Admin: 03/24/25 08:55 Dose: 7.5 mg Sodium Chloride (0.9 % Sodium Chloride Flush 3 Ml Syringe) 3 ml IVFLUSH QSHIFT [facility] Last Admin: 03/24/25 08:56 Dose: 3 ml Tamsulosin HCl (Tamsulosin Hcl 0.4 Mg Capsule) 0.4 mg PO DAILY [facility] Last Admin: 03/24/25 08:38 Dose: 0.4 mg Home Medications ?Medication ?Instructions ?Recorded ?Confirmed ?Last Taken ?Type apixaban 2.5 mg tablet (Eliquis) 2.5 mg PO BID 09/02/24 03/11/25 03/19/25 History ipratropium 0.5 mg-albuterol 3 mg 3 ml inhalation Q4H PRN Shortness 03/03/25 03/21/25 Unknown History (2.5 mg base)/3 mL nebulization Of Breath Or Wheezing soln acetaminophen 325 mg tablet 650 mg PO Q4H PRN Pain, Mild (Pain 03/21/25 03/21/25 Unknown History Scale 1-3) [id number] 300 mcg-K 60 1 tab PO DAILY 03/21/25 03/21/25 03/20/25 History mcg-lycop 600 mcg-lutein 300 mcg tablet (Centrum Silver Ultra Men's) prednisone 10 mg tablet See Rx Instructions .Route .COMPLEX 03/21/25 03/21/25 03/20/25 History 30 mg Exam Exam Date and Time: 03/24/25 1300 Height,Weight and Vital Signs: Height 5 ft 11 in Weight 93 kg Last Vital Signs Temp 98.5 F 03/24/25 11:00 Pulse 91 03/24/25 11:00 Resp 20 03/24/25 11:00 BP 126/74 03/24/25 11:00 Pulse Ox 93 03/24/25 11:00 O2 Del Method Nasal Cannula 03/24/25 11:00 O2 Flow Rate 2 03/24/25 11:00 Pertinent Lab Results Pertinent Lab Results: Laboratory Tests 03/21/25 03/21/25 03/21/25 13:38 13:44 13:50 WBC 16.3 H RBC 4.40 L Hgb 15.0 Hct 40.9 L MCV 93.0 MCH 34.1 H MCHC 36.7 H RDW 15.2 Plt Count 214 MPV 9.1 L Immature Gran % (Auto) 0.5 H Neut % (Auto) 93.9 H Lymph % (Auto) 3.7 L [place] % (Auto) 1.7 L Eos % (Auto) 0.1 Baso % (Auto) 0.1 Lymph # (Auto) 0.6 L [place] # (Auto) 0.3 Eos # (Auto) 0.0 Baso # (Auto) 0.0 Abs Immat Gran (auto) 0.08 H Absolute Neuts (auto) 15.3 H Absolute Nucleated RBC 0.000 Nucleated RBC % (auto) 0.0 Smear Tech's Comments VERIFIED VBG pH 7.43 VBG pCO2 36 VBG pO2 64 VBG HCO3 24 VBG O2 Saturation 91.0 VBG Base Excess 1.0 Sodium 140 Potassium 4.7 Chloride 104 Carbon Dioxide 23 Anion Gap 18 BUN 9 Creatinine 0.67 Estim Creat Clear Calc 124.6 Estimated GFR > 60 Random Glucose 139 H Fasting Glucose Lactic Acid 4.7 H* Lactic Acid F/U @ 2Hr Lactic Acid F/U @ 4Hr Calcium 8.9 Magnesium Troponin I High Sens 2.9 B-Natriuretic Peptide 55 Procalcitonin Urine Color Urine Appearance Urine pH Ur Specific [place] Urine Protein Urine Glucose (UA) Urine Ketones Urine Blood Urine Nitrite Ur Leukocyte Esterase Urine RBC Urine WBC Ur Squamous Epith Cells Urine Bacteria Hyaline Casts Nasal Screen MRSA (PCR) Nasal S. aureus Screen Nasal MRSA/S.aureus Interp Urine Opiates Screen Ur Buprenorphine Scrn Ur Oxycodone Screen Urine Methadone Screen Urine Fentanyl Screen Ur Barbiturates Screen Ur Phencyclidine Scrn Ur Amphetamines Screen U Benzodiazepines Scrn Urine Cocaine Screen U Marijuana (THC) Screen Hep Bs Antigen Hep Bs Antibody Hep B Core Total Ab Hepatitis C Ab (EIA) HIV 1&2 Ab/P24 Ag 4thGn Influenza Type A (PCR) NEGATIVE Influenza Type B (PCR) NEGATIVE RSV RNA Qual (PCR) NEGATIVE SARS-CoV-2 RNA (RT-PCR) NEGATIVE S. pyogenes GrpA ADELINE 03/21/25 03/21/25 03/21/25 14:00 15:48 16:00 WBC RBC Hgb Hct MCV MCH MCHC RDW Plt Count MPV Immature Gran % (Auto) Neut % (Auto) Lymph % (Auto) [place] % (Auto) Eos % (Auto) Baso % (Auto) Lymph # (Auto) [place] # (Auto) Eos # (Auto) Baso # (Auto) Abs Immat Gran (auto) Absolute Neuts (auto) Absolute Nucleated RBC Nucleated RBC % (auto) Smear Tech's Comments VBG pH VBG pCO2 VBG pO2 VBG HCO3 VBG O2 Saturation VBG Base Excess Sodium Potassium Chloride Carbon Dioxide Anion Gap BUN Creatinine Estim Creat Clear Calc Estimated GFR Random Glucose Fasting Glucose Lactic Acid Lactic Acid F/U @ 2Hr 4.7 H* Lactic Acid F/U @ 4Hr Calcium Magnesium Troponin I High Sens B-Natriuretic Peptide Procalcitonin Urine Color Yellow Urine Appearance Clear Urine pH 7.0 Ur Specific [place] 1.015 Urine Protein Trace Urine Glucose (UA) Negative Urine Ketones Negative Urine Blood Negative Urine Nitrite Negative Ur Leukocyte Esterase Small (1+) H Urine RBC 0-2 Urine WBC 0-5 Ur Squamous Epith Cells 0-2 Urine Bacteria None Seen Hyaline Casts 0-2 Nasal Screen MRSA (PCR) Nasal S. aureus Screen Nasal MRSA/S.aureus Interp Urine Opiates Screen Ur Buprenorphine Scrn Ur Oxycodone Screen Urine Methadone Screen Urine Fentanyl Screen Ur Barbiturates Screen Ur Phencyclidine Scrn Ur Amphetamines Screen U Benzodiazepines Scrn Urine Cocaine Screen U Marijuana (THC) Screen Hep Bs Antigen Hep Bs Antibody Hep B Core Total Ab Hepatitis C Ab (EIA) HIV 1&2 Ab/P24 Ag 4thGn Influenza Type A (PCR) Influenza Type B (PCR) RSV RNA Qual (PCR) SARS-CoV-2 RNA (RT-PCR) S. pyogenes GrpA ADELINE Negative 03/21/25 03/21/25 03/22/25 18:46 19:24 05:13 WBC 13.4 H RBC 4.04 L Hgb 13.7 L Hct 37.8 L MCV 93.6 MCH 33.9 H MCHC 36.2 H RDW 15.0 Plt Count 184 MPV 9.2 L Immature Gran % (Auto) 0.6 H Neut % (Auto) 95.5 H Lymph % (Auto) 2.6 L [place] % (Auto) 1.2 L Eos % (Auto) 0.0 Baso % (Auto) 0.1 Lymph # (Auto) 0.4 L [place] # (Auto) 0.2 Eos # (Auto) 0.0 Baso # (Auto) 0.0 Abs Immat Gran (auto) 0.08 H Absolute Neuts (auto) 12.8 H Absolute Nucleated RBC 0.000 Nucleated RBC % (auto) 0.0 Smear Tech's Comments VERIFIED VBG pH VBG pCO2 VBG pO2 VBG HCO3 VBG O2 Saturation VBG Base Excess Sodium 136 Potassium 4.2 Chloride 104 Carbon Dioxide 22 Anion Gap 14 BUN 13 Creatinine 0.60 Estim Creat Clear Calc 139.2 Estimated GFR > 60 Random Glucose 149 H Fasting Glucose Lactic Acid Lactic Acid F/U @ 2Hr Lactic Acid F/U @ 4Hr 4.6 H* Calcium 8.5 Magnesium Troponin I High Sens B-Natriuretic Peptide Procalcitonin Urine Color Urine Appearance Urine pH Ur Specific [place] Urine Protein Urine Glucose (UA) Urine Ketones Urine Blood Urine Nitrite Ur Leukocyte Esterase Urine RBC Urine WBC Ur Squamous Epith Cells Urine Bacteria Hyaline Casts Nasal Screen MRSA (PCR) Nasal S. aureus Screen Nasal MRSA/S.aureus Interp Urine Opiates Screen Not Detected Ur Buprenorphine Scrn Not Detected Ur Oxycodone Screen Not Detected Urine Methadone Screen Not Detected Urine Fentanyl Screen Not Detected Ur Barbiturates Screen Not Detected Ur Phencyclidine Scrn Not Detected Ur Amphetamines Screen Not Detected U Benzodiazepines Scrn Not Detected Urine Cocaine Screen POSITIVE H U Marijuana (THC) Screen Not Detected Hep Bs Antigen Hep Bs Antibody Hep B Core Total Ab Hepatitis C Ab (EIA) HIV 1&2 Ab/P24 Ag 4thGn Influenza Type A (PCR) Influenza Type B (PCR) RSV RNA Qual (PCR) SARS-CoV-2 RNA (RT-PCR) S. pyogenes GrpA ADELINE 03/23/25 03/23/25 03/24/25 08:42 12:45 06:08 WBC 13.3 H RBC 3.97 L Hgb 13.5 L Hct 38.5 L MCV 97.0 MCH 34.0 H MCHC 35.1 RDW 15.2 Plt Count 176 MPV 9.6 Immature Gran % (Auto) Neut % (Auto) Lymph % (Auto) [place] % (Auto) Eos % (Auto) Baso % (Auto) Lymph # (Auto) [place] # (Auto) Eos # (Auto) Baso # (Auto) Abs Immat Gran (auto) Absolute Neuts (auto) Absolute Nucleated RBC 0.000 Nucleated RBC % (auto) 0.0 Smear Tech's Comments VBG pH VBG pCO2 VBG pO2 VBG HCO3 VBG O2 Saturation VBG Base Excess Sodium 139 140 Potassium 4.4 4.8 Chloride 102 102 Carbon Dioxide 27 32 H Anion Gap 14 11 L BUN 15 18 H Creatinine 0.65 0.66 Estim Creat Clear Calc 128.4 126.5 Estimated GFR > 60 > 60 Random Glucose 131 H Fasting Glucose 124 H Lactic Acid Lactic Acid F/U @ 2Hr Lactic Acid F/U @ 4Hr Calcium 8.9 8.7 Magnesium 2.1 2.0 Troponin I High Sens B-Natriuretic Peptide 120 H 118 H Procalcitonin 0.03 Urine Color Urine Appearance Urine pH Ur Specific [place] Urine Protein Urine Glucose (UA) Urine Ketones Urine Blood Urine Nitrite Ur Leukocyte Esterase Urine RBC Urine WBC Ur Squamous Epith Cells Urine Bacteria Hyaline Casts Nasal Screen MRSA (PCR) NEGATIVE Nasal S. aureus Screen NEGATIVE Nasal MRSA/S.aureus Interp SEE NOTE Urine Opiates Screen Ur Buprenorphine Scrn Ur Oxycodone Screen Urine Methadone Screen Urine Fentanyl Screen Ur Barbiturates Screen Ur Phencyclidine Scrn Ur Amphetamines Screen U Benzodiazepines Scrn Urine Cocaine Screen U Marijuana (THC) Screen Hep Bs Antigen Negative Hep Bs Antibody NONREACTIVE Hep B Core Total Ab Nonreactive Hepatitis C Ab (EIA) Nonreactive HIV 1&2 Ab/P24 Ag 4thGn Nonreactive Influenza Type A (PCR) Influenza Type B (PCR) RSV RNA Qual (PCR) SARS-CoV-2 RNA (RT-PCR) S. pyogenes GrpA ADELINE Airway Mallampati Class: III (small mouth aperture) TM Dist: <=3cm Neck ROM: Limited Loose/Missing/Broken Teeth: Yes (several broken and missing teeth) Heart: S1S2 Lungs: Diminished bilaterally Assessment and Plan Assessment Anesthesia Assessment: Anesthesia Plan Discussed and Chart Reviewed Final Anesthetic Review Family History of Problems with Anesthesia: No History of Problems with Anesthesia: No NPO: Yes ASA Class: III Final Preanesthetic Review: No Changes in Pt Med Stat, Meds/Allgs Chart Reviewed, Consent Obtained/Reviewed and Anes Risks/Benef Reviewed Patient Risk: Intermediate Procedure Risk: Intermediate Anesthetic Plan Anesthetic Plan: GA and Agree w/ Assess. and Plan Disposition: Standard PACU
--- NOTE | 2025-03-24 13:53 | P.PNIM_ITS ---
Subjective Subjective Date of Service: 03/24/25 Interval History: coughing improved dyspnea improved Review of Systems Review of Systems: Yes all other systems are reviewed and are negative Physical Exam 2 Vital Signs: Vital Signs: Last Vital Signs Temp 98.5 F 03/24/25 11:00 Pulse 91 03/24/25 11:00 Resp 20 03/24/25 11:00 BP 126/74 03/24/25 11:00 Pulse Ox 93 03/24/25 11:00 O2 Del Method Nasal Cannula 03/24/25 11:00 O2 Flow Rate 2 03/24/25 11:00 BMI result Body Mass Index 28.6 Gen: in no acute distress HEENT: sclera anicteric, moist mucus membranes Neck: supple Lungs: diminished L base Heart: regular rate and rhythm, no murmurs Abd: soft, non-tender, non-distended Ext: no edema Skin: warm/well-perfused Neuro: alert and oriented x3, no focal findings Psych: appropriate affect Objective Data Active Medications Acetaminophen (Acetaminophen 325 Mg Tablet) 650 mg PO Q6H PRN PRN Reason: Pain, Mild 1-3,fever,headache Last Admin: 03/23/25 17:11 Dose: 650 mg Documented By: ARGELIA Albuterol Sulfate (Albuterol Sulfate (0.083%) 2.5 Mg/3 Ml Vial.Neb) 2.5 mg INHALE RQ4H WHILE AWAKE COUNT INCLUDES THE [facility] Last Admin: 03/24/25 11:43 Dose: Not Given Documented By: KRAIG Non-Admin Reason: Not In Room Albuterol/Ipratropium (Albuterol/Iprat 2.5/0.5mg 3 Ml Ampul.Neb) 3 ml INHALE RQ4H WHILE AWAKE PRN PRN Reason: Shortness of Breath Alprazolam (Alprazolam 0.25 Mg Tablet) 0.25 mg PO BID PRN PRN Reason: Anxiety Last Admin: 03/22/25 11:31 Dose: 0.25 mg Documented By: YING Apixaban (Apixaban 2.5 Mg Tablet) 2.5 mg PO BID COUNT INCLUDES THE [facility] Last Admin: 03/24/25 07:17 Dose: Not Given Documented By: AIDAN Non-Admin Reason: pt scheduled for bronch Aspirin (Aspirin Enteric Coated 81 Mg Tablet.) 81 mg PO DAILY COUNT INCLUDES THE [facility] Last Admin: 03/24/25 07:17 Dose: Not Given Documented By: AIDAN Non-Admin Reason: Pt scheduled for bronch Atorvastatin Calcium (Atorvastatin Calcium 80 Mg Tablet) 80 mg PO BEDTIME COUNT INCLUDES THE [facility] Last Admin: 03/23/25 21:07 Dose: 80 mg Documented By: CARLOS Benzonatate (Benzonatate 100 Mg Capsule) 100 mg PO TID PRN PRN Reason: Cough Bupropion HCl (Bupropion Hcl Xl 300 Mg Tab.Er.24h) 300 mg PO DAILY COUNT INCLUDES THE [facility] Last Admin: 03/24/25 08:39 Dose: 300 mg Documented By: THALIA Calcium Carbonate (Calcium Carbonate 750 Mg Tab.Chew) 750 mg PO Q4H PRN PRN Reason: Heartburn Ceftriaxone Sodium (Ceftriaxone Sodium 1 Gm Vial) 1 gm IVPUSH Q24H COUNT INCLUDES THE [facility] Last Admin: 03/23/25 16:14 Dose: 1 gm Documented By: ARGELIA Cyanocobalamin (Cyanocobalamin (Vitamin B-12) 1,000 Mcg Tablet) 1,000 mcg PO DAILY COUNT INCLUDES THE [facility] Last Admin: 03/24/25 08:39 Dose: 1,000 mcg Documented By: THALIA Fentanyl (Fentanyl Citrate/Pf 100 Mcg/2 Ml Vial) 25 mcg IVPUSH Q5M PRN PRN Reason: Pain, Moderate to Severe (Pain Scale 4-10) Stop: 03/24/25 18:59 Fluticasone Propionate (Fluticasone Propionate Nasal 16 Gm [place]) 1 spray NOSTRIL-B DAILY COUNT INCLUDES THE [facility] Last Admin: 03/24/25 08:39 Dose: 1 spray Documented By: THALIA Furosemide (Furosemide 20 Mg/2 Ml Vial) 20 mg IVPUSH BID@0900,1800 COUNT INCLUDES THE [facility]; Protocol Last Admin: 03/24/25 08:38 Dose: 20 mg Documented By: THALIA Gabapentin (Gabapentin 300 Mg Capsule) 600 mg PO TID COUNT INCLUDES THE [facility] Last Admin: 03/24/25 08:54 Dose: 600 mg Documented By: THALIA Guaifenesin (Guaifenesin [place] 600 Mg Tab.Er.12h) 600 mg PO BID COUNT INCLUDES THE [facility] Last Admin: 03/24/25 08:39 Dose: 600 mg Documented By: THALIA Guaifenesin/Dextromethorphan (Guaifenesin Dm 100/10/5 Ml 5 Ml Syrup) 5 ml PO Q6H PRN PRN Reason: Cough Last Admin: 03/24/25 08:54 Dose: 5 ml Documented By: THALIA Haloperidol Lactate (Haloperidol Lactate 5 Mg/Ml Vial) 0.5 mg IVPUSH ONCE PRN PRN Reason: intractable nausea Stop: 03/24/25 18:59 Azithromycin 500 mg/ Sodium (Chloride) 250 mls @ 125 mls/hr IV Q24H COUNT INCLUDES THE [facility] Last Infusion: 03/23/25 19:20 Dose: Infused Documented By: CARLOS Magnesium Hydroxide (Milk Of Magnesia 30 Ml Oral.Susp) 30 ml PO DAILY PRN PRN Reason: Constipation Melatonin (Melatonin 3 Mg Tablet) 6 mg PO BEDTIME PRN PRN Reason: Insomnia Last Admin: 03/23/25 23:03 Dose: 6 mg Documented By: CARLOS Methylprednisolone Sodium Succinate (Methylprednisolone Sod Succ 40 Mg/Ml Vial) 20 mg IVPUSH Q12H COUNT INCLUDES THE [facility] Last Admin: 03/23/25 21:06 Dose: 20 mg Documented By: CARLOS Naloxone HCl (Naloxone Hcl 0.4 Mg/Ml Vial) 0.04 mg IVPUSH Q5M PRN PRN Reason: Excessive sedation or RR < 8 Nicotine Polacrilex (Nicotine Polacrilex 2 Mg Gum) 2 mg BUCCAL Q2H PRN PRN Reason: Nicotine Cravings Nystatin (Nystatin Oral Susp 500,000 Unit/5 Ml Oral.Susp) 200,000 unit PO QID COUNT INCLUDES THE [facility]; Protocol Last Admin: 03/24/25 08:37 Dose: 200,000 unit Documented By: THALIA Comments: Omeprazole (Omeprazole 20 Mg Capsule.Dr) 20 mg PO BID@0630,1630 COUNT INCLUDES THE [facility] Last Admin: 03/24/25 06:12 Dose: Not Given Documented By: CARLOS Non-Admin Reason: NPO Ondansetron HCl (Ondansetron Hcl 4 Mg/2 Ml Vial) 4 mg IVPUSH Q8H PRN PRN Reason: Nausea and Vomiting Oxycodone HCl (Oxycodone Hcl Immed Release 5 Mg Tablet) 7.5 mg PO Q4H PRN PRN Reason: Pain, Moderate(Pain Scale 4-6) Last Admin: 03/24/25 08:55 Dose: 7.5 mg Documented By: THALIA Sodium Chloride (0.9 % Sodium Chloride Flush 3 Ml Syringe) 3 ml IVFLUSH QSHIFT COUNT INCLUDES THE [facility] Last Admin: 03/24/25 08:56 Dose: 3 ml Documented By: THALIA Tamsulosin HCl (Tamsulosin Hcl 0.4 Mg Capsule) 0.4 mg PO DAILY COUNT INCLUDES THE [facility] Last Admin: 03/24/25 08:38 Dose: 0.4 mg Documented By: THALIA Labs 03/24/25 06:08 03/24/25 06:08 Labs: Laboratory Results - last 24 hr 03/23/25 03/23/25 03/24/25 08:42 12:45 06:08 MCV 97.0 MCH 34.0 H MCHC 35.1 RDW 15.2 Plt Count 176 MPV 9.6 Absolute Nucleated RBC 0.000 Nucleated RBC % (auto) 0.0 Anion Gap 11 L Estim Creat Clear Calc 126.5 Estimated GFR > 60 Random Glucose 131 H Calcium 8.7 Magnesium 2.0 B-Natriuretic Peptide 118 H Nasal Screen MRSA (PCR) NEGATIVE Nasal S. aureus Screen NEGATIVE Nasal MRSA/S.aureus Interp SEE NOTE Hep Bs Antigen Negative Hep Bs Antibody NONREACTIVE Hep B Core Total Ab Nonreactive Hepatitis C Ab (EIA) Nonreactive HIV 1&2 Ab/P24 Ag 4thGn Nonreactive Microbiology Microbiology Results: Microbiology 03/21/25 13:38 Blood Culture - Preliminary Blood - Venous No growth after 48 hours. 03/21/25 13:38 Blood Culture - Preliminary Blood - Venous No growth after 48 hours. Assessment and Plan (1) Generalized anxiety disorder: Status: Acute Plan d4 for 65yo M with COPD, pAF, HLD, GERD, BPH, tobacco abuse admitted with severe sepsis due to PNA pneumonia COPD exacerbation - change IV methylprednisolone to PO prednisone, 03/21- ceftriaxone + azithromycin, nebs - Pulm consulted, diuresed empicially-change to PO furosemide, previously scheduled outpt bronchoscopy will be done today - TTE 03/22: - The left ventricular systolic function is normal. The calculated ejection fraction is 65% by biplane method. - There is mildly increased left ventricular wall thickness. - There is moderate mitral annular calcification. acute hypoxic respiratory failure - supplemental O2, wean as tolerated - home O2 eval prior to discahrge pAF - hold apixaban for bronchoscopy - not on rate control meds mood disorder - alprazolam, bupropion HLD - statin GERD - PPI knee pain - prn oxycodone BPH - continue tamsulosin tobacco abuse - NRT cocaine abuse - Addiction Medicine consulted, screen for HBV/HCV/HIV negative dispo - anticipate home with VNA tomorrow VTE ppx - apixaban held for bronchoscopy In my clinical judgment, the patient requires continued inpatient hospitalization for the following reasons: bronchoscopy, hypoxia Total time managing care of this patient today: 40 minutes. Quality Stroke Does the patient have a stroke diagnosis?: No VTE Prior VTE?: No VTE Risk Level:: Medical - moderate - high VTE Device Contraindication: Treatment Not Indicated VTE Drug Contraindication: N/A - Med Ordered
[2025-03-24] MEDS: Fluconazole 100 MG TABLET 200 MG PO (14:36)
[2025-03-24] MEDS: cefTRIAXone sodium 1 GM VIAL IVPUSH (14:39)
[2025-03-24] MEDS: predniSONE 20 MG TABLET 40 MG PO (14:51)
--- NOTE | 2025-03-24 14:59 | PM.DS ---
DS: Providers Provider Date of Service: 03/24/25 Date of admission: 03/21/25 16:52 Date of discharge: 03/24/25 Primary care physician: Zuri Feldman MD Consults: 03/21/25 18:12 Consult to Pulmonology Routine Consulting Provider: [facility] Pulmonology Services Reason for consultation: failed o/p tx for pna 03/23/25 07:51 Addiction Medicine Provider Routine Consulting Provider: Addiction Covering Reason for consultation: cocaine DS: Diagnosis Discharge Diagnosis (1) Orthopnea: Status: Acute (2) Acute exacerbation of chronic obstructive pulmonary disease: Status: Acute (3) Acute on chronic heart failure with preserved ejection fraction (HFpEF): Status: Acute (4) Cocaine abuse: Status: Acute (5) Avascular necrosis of left femoral head: Status: Acute (6) Pneumonia: Status: Inactive (7) Chronic respiratory failure with hypoxia: Status: Acute (8) Severe sepsis: Status: Acute DS: Summary Hospital Course Hospital Course: From the history and physical by the admitting hospitalist, Ashley Lopez NP, 03/21/25: 65-year-old man with a history of COPD presents to the ER with complaints of worsening shortness of breath over the last 2-3 days despite using his medication. He was recently in the ER and treated with antibiotics and steroids but he continued to report feeling like he was choking. He reports a dry cough. He denied any chest pain, nausea, vomiting, diarrhea, fever, chills. He is noted to have a raspy voice and expiratory wheezing. In the ER chest x-ray was noted with cardiomegaly, atelectasis versus pneumonia at the left lung base with probable associated tiny pleural effusion. He was noted to have tachycardia, tachypnea, leukocytosis and lactic acidosis. He was given sepsis fluid bolus, fentanyl, Valium, albuterol, azithromycin, Solu-Medrol while in the ER. He will be admitted for further management and treatment of severe sepsis secondary to pneumonia. 65yo M with COPD, pAF, HLD, GERD, BPH, tobacco abuse admitted with severe sepsis due to PNA. Hospital course by problem: pneumonia COPD exacerbation - improved as he was treated with IV methylprednisolone then transitioned to PO prednisone upon discharge; also treated with ceftriaxone + azithromycin. Blood cultures negative, procalcitonin low. Discharged on prednisone taper, cefuroxime, and doxycycline. - Pulm consulted, diuresed empicially for CHF and then discharged on PO furosemide - TTE 03/22: - The left ventricular systolic function is normal. The calculated ejection fraction is 65% by biplane method. - There is mildly increased left ventricular wall thickness. - There is moderate mitral annular calcification. - previously scheduled outpt bronchoscopy was done 03/24/[address] Lopez and showed ___ chronic hypoxic respiratory failure - on 3L O2 at night and prn during the day polysubstance abuse - met with Addiction Medicine; endorsed 1-time use of cocaine but does not plan to use again; screen for HBV, HCV, and HIV negative; denied that his 3 drinks/day were a problem Discharged home with resumption of VNA services; needs Pulmonology and Primary Care follow-up Time Attestation Discharge Coordination Time (in mins): 35 Quality: Safe Use of Opioids Does Pt have an Active Cancer Diagnosis on the Problem List?: No Quality: Stroke Does the patient have a stroke diagnosis?: No Physical Exam Vital Signs: Vital Signs: Last Vital Signs Temp 97.5 F 03/24/25 14:29 Pulse 89 03/24/25 14:29 Resp 18 03/24/25 14:29 BP 133/60 03/24/25 14:29 Pulse Ox 90 L 03/24/25 14:29 O2 Del Method Nasal Cannula 03/24/25 14:29 O2 Flow Rate 2 03/24/25 14:29 FiO2 60 03/24/25 14:15 BMI result Body Mass Index 28.6 Gen: in no acute distress HEENT: sclera anicteric, moist mucus membranes Neck: supple Lungs: diminished L base Heart: regular rate and rhythm, no murmurs Abd: soft, non-tender, non-distended Ext: no edema Skin: warm/well-perfused Neuro: alert and oriented x3, no focal findings Psych: appropriate affect DS: Data Data Completed and Pending Completed studies during hospitalization [Text1]: Laboratory Results WBC 13.3 X10*3/uL (4.8-10.8) H 03/24/25 06:08 RBC 3.97 X10*6/uL (4.60-5.80) L 03/24/25 06:08 Hgb 13.5 g/dl (14.0-18.0) L 03/24/25 06:08 Hct 38.5 % (42.0-52.0) L 03/24/25 06:08 MCV 97.0 fL (80.0-98.0) 03/24/25 06:08 MCH 34.0 pg (27.0-33.0) H 03/24/25 06:08 MCHC 35.1 g/dl (31.0-36.0) 03/24/25 06:08 RDW 15.2 % (11.0-16.0) 03/24/25 06:08 Plt Count 176 X10*3/uL (160-400) 03/24/25 06:08 MPV 9.6 fL (9.4-12.4) 03/24/25 06:08 Immature Gran % (Auto) 0.6 % (0.0-0.4) H 03/22/25 05:13 Neut % (Auto) 95.5 % (45-73) H 03/22/25 05:13 Lymph % (Auto) 2.6 % (20-40) L 03/22/25 05:13 [place] % (Auto) 1.2 % (2-11) L 03/22/25 05:13 Eos % (Auto) 0.0 % (0-4) 03/22/25 05:13 Baso % (Auto) 0.1 % (0-2) 03/22/25 05:13 Lymph # (Auto) 0.4 X10*3/uL (1.2-4.9) L 03/22/25 05:13 [place] # (Auto) 0.2 X10*3/uL (0.1-1.2) 03/22/25 05:13 Eos # (Auto) 0.0 X10*3/uL (0.0-0.4) 03/22/25 05:13 Baso # (Auto) 0.0 X10*3/uL (0.0-0.2) 03/22/25 05:13 Abs Immat Gran (auto) 0.08 X10*3/uL (0.00-0.03) H 03/22/25 05:13 Absolute Neuts (auto) 12.8 x10*3/uL (2.0-8.3) H 03/22/25 05:13 Absolute Nucleated RBC 0.000 X10*3/uL (0.0-0.012) 03/24/25 06:08 Nucleated RBC % (auto) 0.0 /100WBC (0.0-0.2) 03/24/25 06:08 Smear Tech's Comments VERIFIED 03/22/25 05:13 VBG pH 7.43 (7.32-7.43) 03/21/25 13:50 VBG pCO2 36 mmHg 03/21/25 13:50 VBG pO2 64 mmHg 03/21/25 13:50 VBG HCO3 24 mmol/L (22-26) 03/21/25 13:50 VBG O2 Saturation 91.0 % 03/21/25 13:50 VBG Base Excess 1.0 mmol/L 03/21/25 13:50 Sodium 140 mmol/L (135-145) 03/24/25 06:08 Potassium 4.8 mmol/L (3.3-5.1) 03/24/25 06:08 Chloride 102 mmol/L (96-108) 03/24/25 06:08 Carbon Dioxide 32 mmol/L (22-29) H 03/24/25 06:08 Anion Gap 11 (12-20) L 03/24/25 06:08 BUN 18 mg/dL (9-16) H 03/24/25 06:08 Creatinine 0.66 mg/dL (0.5-1.4) 03/24/25 06:08 Estim Creat Clear Calc 126.5 03/24/25 06:08 Estimated GFR > 60 03/24/25 06:08 Random Glucose 131 mg/dL (60-115) H 03/24/25 06:08 Fasting Glucose 124 mg/dL (60-99) H 03/23/25 08:42 Lactic Acid 4.7 mmol/L (0.5-2.0) H* 03/21/25 13:38 Lactic Acid F/U @ 2Hr 4.7 mmol/L (0.5-2.0) H* 03/21/25 16:00 Lactic Acid F/U @ 4Hr 4.6 mmol/L (0.5-2.0) H* 03/21/25 18:46 Calcium 8.7 mg/dL (8.4-10.2) 03/24/25 06:08 Magnesium 2.0 mg/dL (1.6-2.6) 03/24/25 06:08 Troponin I High Sens 2.9 ng/L (<3.5-35.0) 03/21/25 13:38 B-Natriuretic Peptide 118 pg/mL (<100) H 03/24/25 06:08 Procalcitonin 0.03 ng/mL 03/23/25 08:42 Urine Color Yellow 03/21/25 14:00 Urine Appearance Clear 03/21/25 14:00 Urine pH 7.0 (5.0-9.0) 03/21/25 14:00 Ur Specific [place] 1.015 (1.005-1.025) 03/21/25 14:00 Urine Protein Trace mg/dL (Neg-Trace) 03/21/25 14:00 Urine Glucose (UA) Negative mg/dL (Negative) 03/21/25 14:00 Urine Ketones Negative mg/dL (Negative) 03/21/25 14:00 Urine Blood Negative (Negative) 03/21/25 14:00 Urine Nitrite Negative (Negative) 03/21/25 14:00 Ur Leukocyte Esterase Small (1+) (Negative) H 03/21/25 14:00 Urine RBC 0-2 /HPF (0-2) 03/21/25 14:00 Urine WBC 0-5 /HPF (0-5) 03/21/25 14:00 Ur Squamous Epith Cells 0-2 /HPF (0-2) 03/21/25 14:00 Urine Bacteria None Seen (None Seen) 03/21/25 14:00 Hyaline Casts 0-2 /LPF (0-2) 03/21/25 14:00 Nasal Screen MRSA (PCR) NEGATIVE (Negative) 03/23/25 12:45 Nasal S. aureus Screen NEGATIVE (Negative) 03/23/25 12:45 Nasal MRSA/S.aureus Interp SEE NOTE 03/23/25 12:45 Urine Opiates Screen Not Detected (Not Detect) 03/21/25 19:24 Ur Buprenorphine Scrn Not Detected ng/mL (Not Detect) 03/21/25 19:24 Ur Oxycodone Screen Not Detected ng/mL (Not Detect) 03/21/25 19:24 Urine Methadone Screen Not Detected ng/mL (Not Detect) 03/21/25 19:24 Urine Fentanyl Screen Not Detected (Not Detect) 03/21/25 19:24 Ur Barbiturates Screen Not Detected (Not Detect) 03/21/25 19:24 Ur Phencyclidine Scrn Not Detected (Not Detect) 03/21/25 19:24 Ur Amphetamines Screen Not Detected (Not Detect) 03/21/25 19:24 U Benzodiazepines Scrn Not Detected (Not Detect) 03/21/25 19:24 Urine Cocaine Screen POSITIVE (Not Detect) H 03/21/25 19:24 U Marijuana (THC) Screen Not Detected (Not Detect) 03/21/25 19:24 Hep Bs Antigen Negative (Negative) 03/23/25 08:42 Hep Bs Antibody NONREACTIVE (Nonreactive) 03/23/25 08:42 Hep B Core Total Ab Nonreactive (Nonreactive) 03/23/25 08:42 Hepatitis C Ab (EIA) Nonreactive (Nonreactive) 03/23/25 08:42 HIV 1&2 Ab/P24 Ag 4thGn Nonreactive (Nonreactive) 03/23/25 08:42 Influenza Type A (PCR) NEGATIVE (Negative) 03/21/25 13:44 Influenza Type B (PCR) NEGATIVE (Negative) 03/21/25 13:44 RSV RNA Qual (PCR) NEGATIVE (Negative) 03/21/25 13:44 SARS-CoV-2 RNA (RT-PCR) NEGATIVE (Negative) 03/21/25 13:44 S. pyogenes GrpA ADELINE Negative (Negative) 03/21/25 15:48 Impressions Chest X-Ray 03/21/25 13:04 IMPRESSION: Cardiomegaly. COPD. Atelectasis versus pneumonia at the left lung base with a probable associated tiny pleural effusion. Electronically signed by: Basilio Romero MD 03/21/2025 01:30 PM EDT RP Chest CT 03/23/25 15:47 IMPRESSION: Airspace opacity in the basal left lower lobe is concerning for pneumonia versus decreased blood flow related to chronic atelectasis. Bullous emphysema. Stable chronic mild compression fracture of T6. Extensive coronary artery and aortic calcification. Fleischner guidelines were followed. Electronically signed by: Daniel Causey MD 03/23/2025 04:31 PM EDT RP Pending studies at discharge: Pending at discharge 03/24/25 13:50 Cytology [PTH] Stat 03/24/25 13:52 Cytology [PTH] Stat Discharge Plan Discharge Anticipated Discharge Date/Time: 03/24/25 14:50 Patient Disposition: Home Health Service Discharge Diagnosis: COPD exacerbation pneumonia CHF exacerbation Referrals: [facility] [Outside] - 1 Week Po,Zuri Jenkins MD [Primary Care Provider] - 1 Week Discharge Medications: New nicotine (polacrilex) 2 mg Gum 2 mg buccal Q2H PRN (Reason: Nicotine Cravings) Qty: 100 0RF nystatin 100,000 unit/mL Suspension 5 ml PO QID Qty: 200 0RF furosemide 20 mg Tablet 20 mg PO DAILY Qty: 30 0RF Protocol: Hold for SBP< HOLD for SBP < : 90 cefuroxime axetil 500 mg tablet 500 mg PO BID Qty: 8 0RF doxycycline monohydrate 100 mg tablet 100 mg PO BID Qty: 8 0RF prednisone 10 mg tablet 10 mg PO DIRECTED Qty: 20 0RF Rx Instructions: 40 mg (4 tabs) daily x 2 days, then 30 mg (3 tabs) daily x 2 days, then 20 mg (2 tabs) daily x 2 days, then 10 mg (1 tab) daily x 2 days Continued (DME) shower chair See Rx Instructions .Route .MEDSUPPLY Qty: 1 0RF Rx Instructions: As directed (DME) WALKER See Rx Instructions .Route .MEDSUPPLY Qty: 1 0RF Rx Instructions: As directed fluticasone propionate 50 mcg/actuation spray,suspension 2 spray intranasal DAILY Qty: 3 3RF Rx Instructions: administer into each nostril atorvastatin 80 mg tablet 80 mg PO BEDTIME Qty: 90 2RF gabapentin 300 mg capsule 600 mg PO TID 90 Days Qty: 540 1RF omeprazole 20 mg capsule,delayed release(DR/EC) 20 mg PO BID@0630,1630 Qty: 180 0RF cyanocobalamin (vitamin B-12) 1,000 mcg capsule 1,000 mcg PO DAILY Qty: 90 0RF albuterol sulfate 2.5 mg /3 mL (0.083 %) solution for nebulization 2.5 mg inhalation QID PRN (Reason: shortness of breath or wheezing) 30 Days Qty: 180 3RF albuterol sulfate 90 mcg/actuation HFA aerosol inhaler 2 puff inhalation Q4H PRN (Reason: shortness of breath or wheezing) 30 Days Qty: 8.5 3RF alprazolam 0.25 mg tablet 0.25 mg PO BEDTIME PRN (Reason: anxiety) Qty: 20 0RF Incruse Ellipta 62.5 mcg/actuation blister with device 1 inh PO DAILY Qty: 30 0RF aspirin 81 mg tablet,delayed release (DR/EC) 81 mg PO DAILY Qty: 90 0RF ipratropium-albuterol 0.5 mg-3 mg(2.5 mg base)/3 mL solution for nebulization 3 ml inhalation Q4-6H PRN (Reason: wheezing) 30 Days Qty: 180 3RF acetaminophen 325 mg tablet 650 mg PO Q4H PRN (Reason: Pain, Mild (Pain Scale 1-3)) Centrum Silver Ultra Men's [id number] mcg Tablet 1 tab PO DAILY oxycodone 5 mg tablet 5 mg PO Q6H PRN (Reason: pain) Qty: 12 0RF Rx Instructions: Partial Fill upon patient request. ipratropium-albuterol 0.5 mg-3 mg(2.5 mg base)/3 mL solution for nebulization 3 ml INHALATION Q4H PRN (Reason: Shortness Of Breath Or Wheezing) Eliquis 2.5 mg tablet 2.5 mg PO BID bupropion HCl [Wellbutrin SR] 150 mg tablet sustained-release 12 hr 150 mg PO BID Qty: 180 1RF tamsulosin 0.4 mg capsule 0.4 mg PO DAILY 90 Days Qty: 90 1RF Discontinued prednisone 10 mg tablet See Rx Instructions .ROUTE .COMPLEX Taper: Prednisone 20 daily for 3 Days and 0 Hour 10 daily for 3 Days and 0 Hour Rx Instructions: 10 mg orally; 5 tabs p.o. daily x3 days; 4 tabs p.o. daily x3 days; 3 tabs daily x3 days; 2 tabs daily x3 days; 1 tab daily x3 days tramadol 50 mg tablet 50 mg PO BID PRN (Reason: pain) 30 Days Qty: 30 0RF Discharge Orders: Discharge Order (Routine); Ordered 03/24/25 Ordered By: Wayne Guzman Diet: Low salt diet Activity on Discharge: As tolerated Stand Alone Forms: Patient Portal Discharge page Print Language: Jamaican Care Plan Goals: respiratory health Health Concerns: COPD exacerbation pneumonia CHF exacerbation Plan of Treatment: Prednisone taper: 40 mg daily x 2 days, then 30 mg daily x 2 days, then 20 mg daily x 2 days, then 10 mg daily x 2 days Antibiotics: Cefuroxime 500 mg twice daily PLUS doxycycline 100 mg twice daily for 4 days Follow up [address] Dr Oneil from [facility] Pulmonology in 2-3 weeks Oxygen 3L at night and as needed during day Take nystatin 5 mL 4x a day for thrush Low-sodium diet: less than 2000 mg of sodium daily. Weigh yourself daily and call your doctor if your weight goes up by more than 3 lb/day or 5 lb/week. Take furosemide 20 mg once daily For avascular necrosis of left hip, follow up as scheduled with [facility] Orthopedics. take acetaminophen/Tylenol for mild-moderate pain, oxycodone for severe pain only. Avoid cocaine and cut down on drinking. Please follow up with your primary care doctor within 1 week. Return to the hospital if you experience recurrent or worsening symptoms. Assessment: See Discharge Summary.
--- NOTE | 2025-03-24 16:01 | MHC.CM.PN ---
PT WILL DC HOME TODAY WITH RESUMPTION OF [facility]
--- NOTE | 2025-03-24 16:18 | PM.OP ---
Brief Operative Note Date of Service: 03/24/25 Pre-op diagnosis: hoarseness, pneumonia Post-op diagnosis: other (laryngeal candidiasis, pareisis of left vocal cord, tracheomalecia, pneumonia) Procedure: Bronchosocpy with washings and brushing Surgeon: Rylan Lopez MD Anesthesia: GLMA Was an Explosive Ordnance Disposal Manager used for this Procedure?: No Estimated blood loss (mL): 0 Pathology: none sent Condition: stable Disposition: floor
--- NOTE | 2025-03-25 02:04 | OP_ITS ---
DATE OF SERVICE: 03/24/2025 SURGEON: Rylan Lopez MD PREOPERATIVE DIAGNOSIS: POSTOPERATIVE DIAGNOSIS: PROCEDURE PERFORMED: ESTIMATED BLOOD LOSS: COMPLICATIONS: ANESTHESIA: LMA. ASSISTANTS: SPECIMENS: ASA CLASSIFICATION: III. PREOPERATIVE DIAGNOSES: Hoarseness and pneumonia. POSTOPERATIVE DIAGNOSES: 1. Paresis of the left vocal cord. 2. Laryngeal candidiasis with significant candidiasis of the vocal cords. 3. Tracheomalacia. 4. Pneumonia. PROCEDURES PERFORMED: Bronchoscopy with washings and brushings. DESCRIPTION OF PROCEDURE: After the patient was adequately sedated and LMA was in place, the flexible digital bronchoscope was inserted with the LMA to the level of the larynx. Significant erythema, patches of candidiasis noted or fungal infection likely candidiasis involving the four larynx and also the vocal cords, significant swelling of the vocal cords because of the candidiasis. After instilling lidocaine, the bronchoscope was navigated to the level of trachea. Trachea demonstrated show evidence of tracheomalacia, primarily in the distal trachea causing about 90% obstruction of the right mainstem bronchus and less to the left mainstem bronchus. After instilling lidocaine, the bronchoscope was then navigated to the entire tracheobronchial tree up to the subsegmental airways. The patient did also have some degree of bronchomalacia and did have some mucoid secretions bilaterally that were difficult to suction with the smaller scope, but we were able to clear up the airways. No endobronchial lesions appreciated. There was a question of foreign body in the left lower lobe, but it was suctioned through, so I could have find it afterwards, but it was still cleared out. No evidence of any endobronchial lesions are needed or biopsy. A microscopic brushes introduced into the left lower lobe where he had the pneumonia and sent for appropriate microscopic analysis. Bronchial washings were also collected bilaterally and that was sent for cystology and also microbiology. The bronchoscope was then removed. The total endoscope time approximately 12 minutes. Patient tolerated the procedure well. Vital signs were stable throughout the procedure. During the procedure, the bronchoscope was removed once because of laryngeal spasms, but that cleared quickly. No evidence of any complications noted. The patient will be transferred back to the floor where he came from. He will be started on fluconazole. UTILITY PERSON: None. MD MARIA E Medina/JEANETTE / [phone] MTDDonta
[2025-03-28 17:33] LABS: Strep Pneumo Ag urine Not Detected (Not Detected)
== END 2025-03-24 16:44 | disposition home health service (06) | DRG 871 ==
LOC: HO.ED 16:37 → HO.EDOVER 16:57 → HO.S3 18:22
PROVIDERS: Hospitalist; Admitting Provider Nurse Practitioner Acute Care; Emergency Provider Emergency Medicine; PCP Internal Medicine; Visit Provider Family Medicine
PROC: 0BJ08ZZ Inspection of Tracheobronchial Tree, Via Natural or Artificial Opening Endoscopic (ICD-10-PCS; CPT 31622; principal; 2025-03-24 12:40)
DX: A41.9 Sepsis, unspecified organism (principal); J18.9 Pneumonia, unspecified organism; J44.0 Chronic obstructive pulmonary disease with (acute) lower respiratory infection; J44.1 Chronic obstructive pulmonary disease with (acute) exacerbation; B37.89 Other sites of candidiasis; R65.20 Severe sepsis without septic shock; F17.210 Nicotine dependence, cigarettes, uncomplicated; J98.09 Other diseases of bronchus, not elsewhere classified; J38.01 Paralysis of vocal cords and larynx, unilateral; Z71.6 Tobacco abuse counseling; K21.9 Gastro-esophageal reflux disease without esophagitis; N40.0 Benign prostatic hyperplasia without lower urinary tract symptoms; F14.10 Cocaine abuse, uncomplicated; E78.5 Hyperlipidemia, unspecified; I48.0 Paroxysmal atrial fibrillation; Z20.822 Contact with and (suspected) exposure to COVID-19; Z99.81 Dependence on supplemental oxygen; Z79.01 Long term (current) use of anticoagulants; Z79.82 Long term (current) use of aspirin; Z79.51 Long term (current) use of inhaled steroids; Z79.899 Other long term (current) drug therapy
CPT/HCPCS: 0241U; 36415; 70491; 71045; 71260; 80048; 80307; 81001; 82803; 83605; 83735; 83880; 84145; 84484; 85025; 85027; 86704; 86706; 86803; 87040; 87070; 87086; 87102; 87106; 87116; 87205; 87206; 87340; 87389; 87449; 87640; 87641; 87651; 87899; 88112; 88305; 93005; 93306; 94640; 99285; J0171; J0456; J0696; J1596; J1938; J2003; J2250; J2371; J2919; J3010; J3360; Q9957; Q9967

== ENCOUNTER → 2025-03-21 13:03 | Outpatient (BNV) | payer MEDICARE, SELFPAY | PROVIDERS: Admitting Provider Nurse Practitioner Acute Care; Emergency Provider Emergency Medicine; PCP Internal Medicine; Visit Provider Internal Medicine | DX: I49.3 Ventricular premature depolarization (principal) | CPT/HCPCS: 93010 ==

== ENCOUNTER → 2025-03-21 13:04 | Outpatient (BNV) | payer MEDICARE, SELFPAY | PROVIDERS: Emergency Provider Emergency Medicine; PCP Internal Medicine; Visit Provider Radiology Diagnostic Radiology | DX: J44.9 Chronic obstructive pulmonary disease, unspecified (principal) | CPT/HCPCS: 71045 ==

== ENCOUNTER 2025-03-21 16:52 | Outpatient (BNV) | payer MEDICARE, SELFPAY | END 2025-03-22 17:00 | PROVIDERS: Admitting Provider Nurse Practitioner Acute Care; Emergency Provider Emergency Medicine; PCP Internal Medicine; Visit Provider Internal Medicine | DX: I34.81 Nonrheumatic mitral (valve) annulus calcification (principal); I36.1 Nonrheumatic tricuspid (valve) insufficiency | CPT/HCPCS: 93306 ==

== ENCOUNTER 2025-03-21 16:52 | Outpatient (BNV) | payer MEDICARE, SELFPAY | END 2025-03-23 15:47 | PROVIDERS: Admitting Provider Nurse Practitioner Acute Care; Emergency Provider Emergency Medicine; PCP Internal Medicine; Visit Provider Radiology Diagnostic Radiology | DX: R07.0 Pain in throat (principal); J98.11 Atelectasis | CPT/HCPCS: 70491; 71260 ==

== ENCOUNTER → 2025-03-21 16:52 | Outpatient (BNV) | payer MEDICARE, SELFPAY | PROVIDERS: Admitting Provider Nurse Practitioner Acute Care; Emergency Provider Emergency Medicine; PCP Internal Medicine; Visit Provider Internal Medicine Pulmonary Disease | DX: J98.6 Disorders of diaphragm (principal); J43.9 Emphysema, unspecified; R06.01 Orthopnea | CPT/HCPCS: 99223 ==

== ENCOUNTER → 2025-03-21 16:52 | Outpatient (BNV) | payer MEDICARE, SELFPAY | PROVIDERS: Admitting Provider Nurse Practitioner Acute Care; Emergency Provider Emergency Medicine; PCP Internal Medicine; Visit Provider Nurse Practitioner Acute Care | DX: F41.1 Generalized anxiety disorder (principal) | CPT/HCPCS: 99499 ==

== ENCOUNTER → 2025-03-21 16:52 | Outpatient (BNV) | payer MEDICARE, SELFPAY | PROVIDERS: Admitting Provider Nurse Practitioner Acute Care; Emergency Provider Emergency Medicine; PCP Internal Medicine; Visit Provider Nurse Practitioner Psychiatric/Mental Health | DX: F14.90 Cocaine use, unspecified, uncomplicated (principal); J44.1 Chronic obstructive pulmonary disease with (acute) exacerbation | CPT/HCPCS: 99231 ==

== ENCOUNTER → 2025-03-30 23:59 | Outpatient (BNV) | payer MEDICARE, SELFPAY | PROVIDERS: PCP Internal Medicine; Visit Provider Internal Medicine | DX: J44.1 Chronic obstructive pulmonary disease with (acute) exacerbation (principal); E78.5 Hyperlipidemia, unspecified; N40.0 Benign prostatic hyperplasia without lower urinary tract symptoms | CPT/HCPCS: G0180 ==

== ENCOUNTER 2025-03-31 09:52 | Outpatient (REF) | payer MEDICARE, SELFPAY ==
--- NOTE | ~2025-03-31 | FL_ITS ---
EXAMINATION: XR GI SERIES CLINICAL INFORMATION: Dysphagia since left subclavian bypass COMPARISON: None available. TECHNIQUE: Routine upright barium swallow was performed with thick barium and barium coated saltine crackers and thin barium in prone lying position. FINDINGS: Following oral administration of thick barium and effervescent granules there is normal propagation bolus from the oral cavity through the pharynx, esophagus into stomach without any evidence of obstruction, narrowing or stricture. A prominent cricoesophageal sphincter is noted. On oral administration of saltine crackers coated with barium there is normal perfusion bolus from the oral cavity through the pharynx, esophagus into stomach without intraluminal filling defect or narrowing or obstruction. On oral administration of thin barium in prone lying position is good distention of entire esophagus without any evidence of obstruction or narrowing. In supine position the stomach is oriented transversely underneath the hemidiaphragm is a small right para midline hiatal hernia. FLUOROSCOPY TIME: 2 minutes 11 seconds DOSE AREA PRODUCT: 1343 uGy-m2 (microgray-meter squared) FL/FL upper GI w Ba Swallow IMPRESSION: Evidence of prior left subclavian bypass changes. There is no obstruction of esophagus at this time. Horizontally oriented stomach and epigastric region with a small hiatal hernia in the right para midline region. Electronically signed by: Margarito Almanzar MD 03/31/2025 11:05 AM EDT
== END 2025-03-31 09:53 | disposition home or self-care (01) ==
LOC: HO.XRAY 09:52
PROVIDERS: PCP Internal Medicine; Visit Provider Internal Medicine
DX: R13.10 Dysphagia, unspecified (principal)
CPT/HCPCS: 74240

== ENCOUNTER → 2025-03-31 09:56 | Outpatient (BNV) | payer MEDICARE, SELFPAY | PROVIDERS: PCP Internal Medicine; Visit Provider Radiology Diagnostic Radiology | DX: R13.10 Dysphagia, unspecified (principal); K44.9 Diaphragmatic hernia without obstruction or gangrene | CPT/HCPCS: 74246 ==

== ENCOUNTER 2025-04-04 10:46 | Outpatient (AMB) | payer MEDICARE, SELFPAY ==
[2025-04-04 10:52] VITALS: BP 120/52; PULSE 94; O2SAT 93
--- NOTE | 2025-04-04 10:52 | MHC.OFFVIS ---
Vital Signs 04/04/25 10:52 Height 5 ft 11 in BP 120/52 L Blood Pressure Location Lt brachial Position Sitting Pulse 94 Pulse Source Pulse Oximeter Pulse Oximetry (%) 93 Oxygen Delivery Method Room Air Intake Visit Reasons: HH f/u Intake Note: pt is here for follow up and states he is still having difficulty in the throat area, and some shortness of breath, just fx a rib, currently on prednisone, and med for thrush Allergies divalproex sodium [Depakote] Allergy (Unknown, Verified 04/04/25 14:18) Unknown rosuvastatin Allergy (Unknown, Verified 04/04/25 14:18) SOB finasteride Allergy (Intermediate, Uncoded 04/04/25 14:18) Hives Medication List - Last Reconciled 04/04/25 by Rey Oneil MD [shower chair As directed] acetaminophen 650 mg PO Q4H PRN albuterol sulfate 2.5 mg (3 mL) inhalation QID PRN 30 days albuterol sulfate 90 mcg/actuation 2 puffs inhalation Q4H PRN 30 days alprazolam 0.25 mg PO BEDTIME PRN apixaban (Eliquis) 2.5 mg PO BID aspirin 81 mg PO DAILY atorvastatin 80 mg PO BEDTIME bupropion HCl SR (Wellbutrin SR) 150 mg PO BID cetirizine (Zyrtec) 10 mg PO DAILY PRN cyanocobalamin (vitamin B-12) 1,000 mcg PO DAILY fluticasone propionate 50 mcg/actuation 2 sprays intranasal DAILY furosemide 20 mg See Protocol PO DAILY gabapentin 600 mg (2 x 300 mg) PO TID 90 days ipratropium-albuterol 0.5 mg-3 mg(2.5 mg base)/3 mL 3 mL inhalation Q4-6H PRN 30 days di-vbh-lhwxa-[id number]-[id number] [id number] mcg (Centrum Silver Ultra Men's) 1 tab PO DAILY nicotine (polacrilex) 2 mg buccal Q2H PRN nystatin 5 mL PO QID omeprazole 20 mg PO BID@0630,1630 oxycodone 5 mg PO Q6H PRN prednisone 10 mg PO DIRECTED tamsulosin 0.4 mg PO DAILY 90 days umeclidinium 62.5 mcg/actuation (Incruse Ellipta) 1 inh PO DAILY [WALKER As directed] HPI HPI HH f/u: Details: From the history and physical by the admitting hospitalist, Ashley Lopez NP, 03/21/25: 65-year-old man with a history of COPD presents to the ER with complaints of worsening shortness of breath over the last 2-3 days despite using his medication. He was recently in the ER and treated with antibiotics and steroids but he continued to report feeling like he was choking. He reports a dry cough. He denied any chest pain, nausea, vomiting, diarrhea, fever, chills. He is noted to have a raspy voice and expiratory wheezing. In the ER chest x-ray was noted with cardiomegaly, atelectasis versus pneumonia at the left lung base with probable associated tiny pleural effusion. He was noted to have tachycardia, tachypnea, leukocytosis and lactic acidosis. He was given sepsis fluid bolus, fentanyl, Valium, albuterol, azithromycin, Solu-Medrol while in the ER. He will be admitted for further management and treatment of severe sepsis secondary to pneumonia. He was admitted to the hospital and treated for an acute exacerbation of COPD. With question of pneumonitis. As previously planned he needed a bronchoscopic examination to rule out any obstructive lesion in the oropharynx. Dr. Rylan Lopez , perform bronchoscopy exam and did not find any solid lesion but there was, inflammation and white exudates in sub pharyngeal area. Cultures grew Coryne bacterium, organisms and yeast. organisms He was treated with nystatin suspension Swishes and also with combination of doxycycline and cefuroxime for 10 days. Since discharge home he is feeling better, but still remains somewhat hose. Gets short of breath very easily, he gets anxious. He still smokes a few cigarettes a day. He fell down on the stairs complains of pain over the left ribcage area . He is on O2 2 L/minute. [facility] Medical History (Updated 04/04/25 @ 16:51 by Rey Oneil MD) Counseling on substance use and abuse Severe sepsis COPD (chronic obstructive pulmonary disease) Generalized anxiety disorder COPD with acute exacerbation SOB (shortness of breath) Anxiety Smoker Pharyngitis COPD (chronic obstructive pulmonary disease) Arthritis Abdominal hernia Numbness Tinea cruris Pes anserinus bursitis of left knee Rib fractures Osteoarthritis of right hip Right hip pain Sinus congestion Overweight (BMI 25.0-29.9) Urgency of micturition Carpal tunnel syndrome Femoral fracture Pulmonary nodule BPH (benign prostatic hyperplasia) Seizure disorder Insomnia Vitamin D deficiency Impaired glucose tolerance Hypercholesterolemia GERD (gastroesophageal reflux disease) Polysubstance abuse Left subclavian artery occlusion Brain aneurysm CVA (cerebral vascular accident) Vocal cord polyp Vitamin B12 deficiency Surgical History (Updated 03/25/25 @ 00:01 by Isa Lewis) History of nasal surgery H/O colonoscopy Stenosis of subclavian bypass History of surgery History of orthopedic surgery History of knee replacement procedure of right knee Family History Father CAD (coronary artery disease) Kidney malignancy Mother Myocardial infarction Brother Prostate cancer Social History Household Members: Other Household Members Other:: roomate Housing: House Housing Other:: mobile home Are you a primary toddler caregiver to a significant other at home: No Do you presently have visiting nurse or other home services: Yes 75 years or older and lives alone: No Unable to assess alcohol history related to: Unknown Alcohol intake: current Alcohol intake frequency: a few times a week Alcohol type: beer Comment: 4 drinks last night Patient Tobacco Use Status: Former Tobacco user Tobacco use type: Cigarette Cigarette Packs Per Day: 5 Cigarettes Per Day: 0.25 Years Smoked: 55 e-Cigarette/Vaping Use: Never Used Second Hand Smoke Exposure: No Substance Use Type: Crack/Cocaine service: No Current occupational status: unemployed Cognitive needs: Yes (Cane) Hearing needs: No Vision needs: Yes Review of Systems Const All systems reviewed & are unremarkable except as noted in HPI and below Eyes Reports no additional complaints ENT Reports no additional complaints Card Denies chest pain, Denies irregular heart rhythm and Denies leg edema Resp Reports as per HPI GI Reports constipation and Reports heartburn Reports no additional complaints Musc Reports arthralgias (HIPS) Skin/Breast Reports system reviewed and no additional complaints, except as documented Neuro Reports no additional complaints Psych Reports no additional complaints Endo Reports no additional complaints Sarkis/Lymph Reports no additional complaints Physical Exam Vital Signs: Last Vital Signs Pulse 94 04/04/25 10:52 BP 120/52 L 04/04/25 10:52 Pulse Ox 93 04/04/25 10:52 Oxygen Delivery Method Room Air 04/04/25 10:52 Const General: comfortable, no acute distress, alert and awake Orientation/consciousness: patient oriented x3 HEENT Head: Yes normal to inspection General nose exam: No nasal polyps present and No nasal discharge present Face and sinus: Yes sinuses nontender Mouth: oropharynx normal (ON THIS VISIT I DO NOT SEE ANY ERYTHEMA OR SWELLING OR ULCERS IN HIS MOUTH.) Throat: Yes posterior oropharynx normal Eyes General: appearance normal, both eyes and all related structures Neck Other: SCAR ON THE LEFT SIDE FROM PREVIOUS CAROTID ENDARTERECTOMIES RECENT REVISION OF THE SURGERY. Neck: Yes normal visual inspection, Yes no lymphadenopathy, Yes trachea midline and Yes no JVD Thyroid: Thyroid normal Chest Chest palpation & inspection: normal inspection of the chest (HIS SURGICAL SCAR IN THE LEFT PECTORAL AREA FROM RECENT VASCULAR SURGERY), normal palpation of entire chest wall and tenderness (Over the left mid chest, but no crepitus ) Resp Other: PERCUSSION NOTE IS RESONANT, BREATH SOUNDS ARE DISTANT AND ESPECIALLY DECREASED OVER THE BASILAR AREAS NO CREPITATIONS OR WHEEZES ARE HEARD TODAY . Cardio Palpation: normal PMI Rate: regular rate Rhythm: regular rhythm Heart sounds: no gallops and no murmurs GI Palpation (GI): Soft to palpation, nontender, No hepatosplenomegaly present and no masses Auscultation: normal bowel sounds Back/Spine/Pelvis Thoracic/Lumbar Spine: thoracic and lumbar spine normal to inspection Skin General skin exam: no rashes or lesions noted Neuro General: patient oriented x3 and no focal motor deficits Cranial nerves: Yes CN's II-XII intact bilaterally Extrem Other: He has the discomfort over the left hip, . Especially on standing and walking Today he is non ambulatory and comes to the office in a scooter. General: Yes normal to inspection, Yes no clubbing, cyanosis or edema and Yes no calf tenderness Psych Appearance: grossly normal and well kempt Speech and movement: Normal speech and movement present Results Reviewed Results Reviewed: Hospital course from his recent admission is reviewed Assessment & Plan Assessment & Plan (1) Acute exacerbation of chronic obstructive pulmonary disease: Comment: This 65 years old gentleman has severe chronic obstructive pulmonary disease, due to continued smoking Recently was hospitalized treated for acute exacerbation, and he comes for post hospital follow-up. Breathing montemayor he is definitely better, but still quite anxious, still smoking a few cigarettes a day, still taking a few drinks of alcohol. Code(s): J44.1 - Chronic obstructive pulmonary disease with (acute) exacerbation Category: Medical Plan: Incruse Ellipta 1 inhalation daily. Ipratropium-albuterol 3 male solution in the nebulizer to use Q 6 hours while awake. Albuterol HFA 2 puffs Q 6 hours p.r.n. (2) Rib pain on left side: Comment: Left 7th rib fracture, rib x-rays have shown the fracture of the 7th rib. He still has moderate amount of pain. Has been prescribed oxycodone 5 mg q.6 hours PRN. Code(s): R07.81 - Pleurodynia Category: Medical Plan: I advised him that he should use Tylenol 2 tablets q.6 hours PRN and use oxycodone only for severe pain (3) Chronic respiratory failure with hypoxia: Comment: This gentleman does have chronic hypoxemic respiratory failure and he is on O2 2 L/minute Code(s): J96.11 - Chronic respiratory failure with hypoxia Category: Medical Plan: Advised to continue using O2 2 L/minute (4) Tobacco abuse: Comment: Longstanding cigarette smoker. Has been advised many times to quit completely. This time after hospitalization, he has reduced this cigarettes but still smokes about 3-4 cigarettes a day Code(s): Z72.0 - Tobacco use Category: Medical Plan: Talked to him in great detail and advised him to quit smoking completely. (5) Pharyngitis: Comment: HE HAS CHRONIC LOW-GRADE DIFFUSE PHARYNGITIS. AT PRESENT DOES NOT HAVE ANY EXUDATES, THERE IS ONLY MILD CHRONIC ERYTHEMA OF THE SOFT PALATE AND UVULA. THIS MAY BE DUE TO CHRONIC IRRITATION. FROM SMOKING Code(s): J02.9 - Acute pharyngitis, unspecified Category: Medical Plan: Advised to stay on nystatin suspension and perform swishes b.i.d. for another 10 days (6) Counseling on substance use and abuse: Comment: He drinks be as well as uses cocaine, Code(s): Z71.89 - Other specified counseling Category: Medical Plan: I explained to him that he needs to quit substance abuse, Otherwise he is at risk of falling and hurting himself. And also his cardio respiratory status may keep on getting worse as long as he continues with addictive behavior. Coding Level of Care Code Est Pt Level 4 (51047) Diagnoses Acute exacerbation of chronic obstructive pulmonary disease J44.1 Rib pain on left side R07.81 Chronic respiratory failure with hypoxia J96.11 Tobacco abuse Z72.0 Pharyngitis J02.9 Counseling on substance use and abuse Z71.89
--- OUTSIDE RECORDS SUMMARY | 2025-04-04 12:09 | XMS_ITS | Clinical Summary ---
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
== END 2025-04-04 11:18 | disposition home or self-care (01) ==
LOC: HO.HPS 10:47
PROVIDERS: PCP Internal Medicine; Visit Provider Internal Medicine
DX: J44.1 Chronic obstructive pulmonary disease with (acute) exacerbation (principal); R07.81 Pleurodynia; J96.11 Chronic respiratory failure with hypoxia; Z72.0 Tobacco use; J02.9 Acute pharyngitis, unspecified; Z71.89 Other specified counseling
CPT/HCPCS: 99214

== ENCOUNTER → 2025-04-04 10:46 | Outpatient (BNVA) | payer MEDICARE, SELFPAY | PROVIDERS: PCP Internal Medicine; Visit Provider Internal Medicine | DX: J44.1 Chronic obstructive pulmonary disease with (acute) exacerbation (principal); J96.11 Chronic respiratory failure with hypoxia; Z72.0 Tobacco use; J02.9 Acute pharyngitis, unspecified; Z71.89 Other specified counseling | CPT/HCPCS: 99212 ==

== ENCOUNTER 2025-04-07 12:27 | Outpatient (REF) | payer MEDICARE, SELFPAY ==
--- NOTE | ~2025-04-07 | XR_ITS ---
EXAMINATION: XR PELVIS CLINICAL INFORMATION: M25.559 - Pain in unspecified hip COMPARISON: March 02, 2025. October 07, 2024.. TECHNIQUE: AP view of the pelvis. FINDINGS: Total right hip arthroplasty prosthesis with an acetabular and femoral component well-seated in the osseous structures. No acute cortical disruption or malalignment. No loosening. There is sclerosis along the articular surface of the left acetabulum and left femoral head with volume loss of the left femoral head and subchondral cyst formation and mild sclerosis. XR/XR pelvis 1-2V IMPRESSION: Moderate osteoarthrosis, left hip. Worsened since prior exam. Avascular necrosis, left femoral head. Right hip arthroplasty prosthesis, intact without dislocation. Electronically signed by: Ritchie Choi MD 04/07/2025 02:19 PM EDT
--- OUTSIDE RECORDS SUMMARY | 2025-04-07 13:34 | XMS_ITS | Patient Health Record ---
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 Location: [facility] Disch: SPEC : [id number] RECD : 12/31/24 STATUS: MEGAN ADAMS NUM: [id number] AGUSTIN: 12/31/24-[address] [facility] [address]: Tone Weir MD ENTERED: 12/31/24 54 [...] in cassette A. B. Received in forma [employer] labeled ?right colon polyp? are 4 fragments [...] copic examination, 1 piece in cassette C. ([facility]) CONTINUED ON NEXT PAGE Name: Stas Howe Age/Sex: 64/M : 1960 Unit#: [id number] Attend Dr: Tone Weir MD Re12/31/24 Status : [facility] Location: [facility] Disch: SPEC : [id number] RECD : 12/31/24-1340 STATUS: MEGAN ADAMS NUM: [id number] AGUSTIN: 12/31/24-[address]: Tone Weir MD ENTERED: 12/31/24 56 SP TYPE: Surgical OTHR DR: Zuri Feldman MD ORDERED: BERT Stain/9, Mejia Crane L4/3 Copies To: Tone Weir MD [facility] [address] [place], [place] [id number] Zuri Feldman MD [facility] Primary Care,[place] [address] [place] [address] Signed (si gnature on file) Mariola Gamez [...] Oral ly Once a day Active Nystatin 938324 UNIT/ML Mouth/Throat for 10 Active ALPRAZolam 0.25 [...] Problem Status W/U Status Risk Notes Problem [id number] Colon cancer screening (Z12.11) Active confirmed Problem 930399408 shelter (curre nt) use of anticoagulants (Z79.01) Active confirmed Problem 40289206 Encounter for ot her preprocedural examination (Z01.818) Active confirmed Problem 117503545 shelter (curre nt) use of aspirin (Z79.82) Active confirmed Problem 866356105 Personal history of colonic polyps (Z86.0100) Active confirmed Vital Signs Temperature 96.9 degrees Fahrenheit 11/22/2024 Blood pressure diastolic 00 mm Hg 11/22/2024 Height 68 in 11/22/2024 Blood pressure systolic 000 mm Hg 11/22/2024 Weight 200 lbs 11/22/2024 BMI 30.41 kg/m2 11/22/2024 Encounters Encounter Location Date Provider Diagnosis [facility] Out[facility] [address] [place] [id number] 12/31/2024 Tone Weir Jr Colon cancer screening Z12.11 ; Personal history of adenomatous and serrated colon polyps Z86.0101 and Colon polyps K63.5 [facility] [address] [place] [phone] 11/22/2024 Tone Weir Jr Colon cancer screening Z12.11 ; 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 11/22/2024 shelter (current) use of anticoagulants (ICD-10 - Z79.01) [...] Insured Coverage Start Date Coverage End Date [facility] [address] [place] [id number] STAS HWOE Self - patient is the insured MEDICAID OF [facility] [address] [place] [address] [id number] STAS HOWE Self - patient is the insured Medical (General) History Medical History History ICD Code Hyperlipidemia Lung nodule COPD CVA, history of brain aneurysm Left subclavian artery occlusion BPH Colonoscopy 04/06, tubular adenomas x2, f elena-year followup Surgical History Surgery Date(Month/Year) Right knee replacement Right femur fracture repair
== END 2025-04-07 12:28 | disposition home or self-care (01) ==
LOC: HO.HOSX 12:27
PROVIDERS: Visit Provider Orthopaedic Surgery
DX: M87.052 Idiopathic aseptic necrosis of left femur (principal); M25.559 Pain in unspecified hip; F19.10 Other psychoactive substance abuse, uncomplicated; J44.1 Chronic obstructive pulmonary disease with (acute) exacerbation
CPT/HCPCS: 72170; 99212

== ENCOUNTER 2025-04-07 13:32 | Outpatient (AMB) | payer MEDICARE, SELFPAY ==
--- NOTE | 2025-04-07 13:52 | A.OFFVIS_ITS ---
Intake Visit Reasons: New Problem - Left Hip Pain Intake Note: Stas is a 65 year old male who presents today for a new problem visit with complaints of Left Hip pain. Patient reports that he has hayes d ongoing left hip pain for quite some time now that is worsened with weight bearing activities. His pain is causing him to become more sedentary and sleep poorly. Takes tramadol with some relief. Patient reports that he is not doing well he has had recent bronchoscopy 03/24/25 Hx of Right CHUYITA 12/02/23. Allergies divalproex sodium (Depakote) Allergy (Unknown, Verified 04/07/25 13:52) Unknown rosuvastatin Allergy (Unknown, Verified 04/07/25 13:52) SOB finasteride Allergy (Intermediate, Uncoded 04/07/25 13:52) Hives HPI HPI New Problem - Left Hip Pain: Details: Stas is a 65-year-old gentleman who underwent a right hip arthroplasty many years ago. He returns today being unable to walk. He states he has severe groin pain. This is been present off and on for the past 6 months. He has been off and on of steroids and recently had a partial lobectomy . He has acute on chronic heart failure and chronic respiratory failure with hypoxia. He has been having severe difficulty walking and uses a cane walker and sometimes a motorized wheelchair. He states he is having pain and he is unable to sleep and walk in the quality of his life is miserable. FORMERLY [facility], [facility] Medical History (Updated 04/08/25 @ 15:10 by Raheel Mobley MD) Counseling on substance use and abuse Severe sepsis COPD (chronic obstructive pulmonary disease) Generalized anxiety disorder COPD with acute exacerbation SOB (shortness of breath) Anxiety Smoker Pharyngitis COPD (chronic obstructive pulmonary disease) Arthritis Abdominal hernia Numbness Tinea cruris Pes anserinus bursitis of left knee Rib fractures Osteoarthritis of right hip Right hip pain Sinus congestion Overweight (BMI 25.0-29.9) Urgency of micturition Carpal tunnel syndrome Femoral fracture Pulmonary nodule BPH (benign prostatic hyperplasia) Seizure disorder Insomnia Vitamin D deficiency Impaired glucose tolerance Hypercholesterolemia GERD (gastroesophageal reflux disease) Polysubstance abuse Left subclavian artery occlusion Brain aneurysm CVA (cerebral vascular accident) Vocal cord polyp Vitamin B12 deficiency Surgical History (Updated 03/25/25 @ 00:01 by Isa Lewis) History of nasal surgery H/O colonoscopy Stenosis of subclavian bypass History of surgery History of orthopedic surgery History of knee replacement procedure of right knee Family History Father CAD (coronary artery disease) Kidney malignancy Mother Myocardial infarction Brother Prostate cancer Social History Household Members: Other Household Members Other:: roomate Housing: House Housing Other:: mobile home Are you a primary morning caregiver to a significant other at home: No Do you presently have visiting nurse or other home services: Yes 75 years or older and lives alone: No Unable to assess alcohol history related to: Unknown Alcohol intake: current Alcohol intake frequency: a few times a week Alcohol type: beer Comment: 4 drinks last night Patient Tobacco Use Status: Former Tobacco user Tobacco use type: Cigarette Cigarette Packs Per Day: 5 Cigarettes Per Day: 0.25 Years Smoked: 55 e-Cigarette/Vaping Use: Never Used Second Hand Smoke Exposure: No Substance Use Type: Crack/Cocaine service: No Current occupational status: unemployed Cognitive needs: Yes (Cane) Hearing needs: No Vision needs: Yes Physical Exam Extrem Other: On physical exam he has audible wheezing but is not out of breath. He has pain with minimal internal rotation of the left hip and can not ambulate. His foot is warm and well perfused he is firing his EHL/tib ant/gastrocs. Results Reviewed Results Reviewed: I personally reviewed relevant radiographs. Left hip shows chondral collapse of the femoral head consistent with avascular necrosis Assessment & Plan Assessment & Plan (1) Avascular necrosis of left femoral head: Code(s): M87.052 - Idiopathic aseptic necrosis of left femur Category: Medical Plan: This is a 65-year-old gentleman with avascular necrosis of the left femoral head. This is an indication for surgery but he has many contraindications to surgery. Currently they are a documented history of daily alcohol and frequent cocaine use as well as recent lung surgery. In order to operate on his left hip we would require pulmonary and cardiac clearance but in addition I would require his alcohol use to be in remission and for him to be drug free for at least 12 months. He has no known history of IVDU. (2) Polysubstance abuse: Comment: Alcohol and cocaine Code(s): F19.10 - Other psychoactive substance abuse, uncomplicated Category: Medical Plan: (3) Acute exacerbation of chronic obstructive pulmonary disease: Comment: This 65 years old gentleman has severe chronic obstructive pulmonary disease, due to continued smoking Recently was hospitalized treated for acute exacerbation, and he comes for post hospital follow-up. Breathing montemayor he is definitely better, but still quite anxious, still smoking a few cigarettes a day, still taking a few drinks of alcohol. Code(s): J44.1 - Chronic obstructive pulmonary disease with (acute) exacerbation Category: Medical Plan: Orders: Orders XR pelvis 1-2V 04/07/25 M25.559 - Pain in unspecified hip Coding Level of Care Code Est Pt Level 4 (81726) Diagnoses Avascular necrosis of left femoral head M87.052 Polysubstance abuse F19.10 Acute exacerbation of chronic obstructive pulmonary disease J44.1
== END 2025-04-07 14:29 | disposition home or self-care (01) ==
LOC: HO.HOS 13:32
PROVIDERS: PCP Internal Medicine; Visit Provider Orthopaedic Surgery
DX: M87.052 Idiopathic aseptic necrosis of left femur (principal); F19.10 Other psychoactive substance abuse, uncomplicated; J44.1 Chronic obstructive pulmonary disease with (acute) exacerbation
CPT/HCPCS: 99214

== ENCOUNTER → 2025-04-07 13:36 | Outpatient (BNV) | payer MEDICARE, SELFPAY | PROVIDERS: Visit Provider Radiology Diagnostic Radiology | DX: M87.052 Idiopathic aseptic necrosis of left femur (principal); M16.12 Unilateral primary osteoarthritis, left hip; Z96.641 Presence of right artificial hip joint | CPT/HCPCS: 72170 ==

== ENCOUNTER 2025-04-08 15:46 | Outpatient (AMB) | payer MEDICARE, SELFPAY ==
[2025-04-08 15:49] VITALS: BP 138/96; PULSE 97; O2SAT 95; BMI 29.1
--- NOTE | 2025-04-08 15:49 | A.OFFPC_ITS ---
Vital Signs 04/08/25 15:49 Height 5 ft 11 in Weight 208 lb 8.917 oz BMI 29.1 BP 138/96 H Blood Pressure Location Lt brachial Position Sitting Pulse 97 Pulse Source Pulse Oximeter Pulse Oximetry (%) 95 Oxygen Delivery Method Room Air Intake Visit Reasons: Per Dr. Feldman Press Setup Operator Required: No Accompanied by: Self / Same As Patient Allergies divalproex sodium (Depakote) Allergy (Unknown, Verified 04/08/25 15:50) Unknown rosuvastatin Allergy (Unknown, Verified 04/08/25 15:50) SOB finasteride Allergy (Intermediate, Uncoded 04/08/25 15:50) Hives Tobacco use date assessed: 04/08/25 Fall risk assessment: 2 + Falls in past year Last assessed Fall Risk: 04/08/25 Dental Screening Dental Screen Date: 04/08/25 Did you have a dental visit in the last 12 months?: No Did you have a dental problem in the last 6 months where you did not have access to dental care?: No Was dental information given to patient?: Patient has dentist [facility] Medical History (Updated 04/08/25 @ 15:10 by Raheel Mobley MD) Counseling on substance use and abuse Severe sepsis COPD (chronic obstructive pulmonary disease) Generalized anxiety disorder COPD with acute exacerbation SOB (shortness of breath) Anxiety Smoker Pharyngitis COPD (chronic obstructive pulmonary disease) Arthritis Abdominal hernia Numbness Tinea cruris Pes anserinus bursitis of left knee Rib fractures Osteoarthritis of right hip Right hip pain Sinus congestion Overweight (BMI 25.0-29.9) Urgency of micturition Carpal tunnel syndrome Femoral fracture Pulmonary nodule BPH (benign prostatic hyperplasia) Seizure disorder Insomnia Vitamin D deficiency Impaired glucose tolerance Hypercholesterolemia GERD (gastroesophageal reflux disease) Polysubstance abuse Left subclavian artery occlusion Brain aneurysm CVA (cerebral vascular accident) Vocal cord polyp Vitamin B12 deficiency Surgical History History of nasal surgery H/O colonoscopy Stenosis of subclavian bypass History of surgery History of orthopedic surgery History of knee replacement procedure of right knee Family History Father CAD (coronary artery disease) Kidney malignancy Mother Myocardial infarction Brother Prostate cancer Social History (Reviewed 04/08/25 @ 15:51 by LOW Rodríguez Household Members: Other Household Members Other:: roomate Housing: House Housing Other:: mobile home Are you a primary technical healthcare consultant to a significant other at home: No Do you presently have visiting nurse or other home services: Yes 75 years or older and lives alone: No Unable to assess alcohol history related to: Unknown Alcohol intake: current Alcohol intake frequency: a few times a week Alcohol type: beer Comment: 4 drinks last night Patient Tobacco Use Status: Former Tobacco user Tobacco use type: Cigarette Cigarette Packs Per Day: 5 Cigarettes Per Day: 0.25 Years Smoked: 55 Packs Per Year: 275 Packs per year/per ci.66 e-Cigarette/Vaping Use: Never Used Second Hand Smoke Exposure: No Substance Use Type: Crack/Cocaine service: No Current occupational status: unemployed Cognitive needs: Yes (Cane) Hearing needs: No Vision needs: Yes Questionnaire PHQ-9 Over the last 2 weeks, how often have you been bothered by any of the following problems? 1. Little interest or pleasure in doing things: nearly every day 2. Feeling down, depressed, or hopeless: nearly every day 3. Trouble falling or staying asleep, or sleeping too much: nearly every day 4. Feeling tired or having little energy: nearly every day 5. Poor appetite or overeating: nearly every day 6. Feeling bad about yourself - or that you are a failure or have let yourself or your family down: nearly every day 7. Trouble concentrating on things, such as reading the newspaper or watching television: not at all 8. Moving or speaking so slowly that other people could have noticed. Or the opposite - being so fidgety or restless that you have been moving around a lot more than usual: more than half the days 9. Thoughts that you would be better off or of hurting yourself in some way: not at all Total score: 20 Depression Screening Interpretation: Positive Depression Screening Done: Yes Source: Developed by Drs. Basilio Esteves, Gina Sales, Zev Ambriz and colleagues, with an educational teodoro from [employer]. Thrive Questionnaire Date Thrive assessed: 04/08/25 I am a: Patient What is your living situation today?: I have a steady place to live Within the past 12 months, did the food you bought not last and you didn't have the money to get more?: Sometimes True Within the past 12 months, did you worry whether your food would run out before you got money to buy more?: Sometimes True Do you have trouble paying for medicines?: No Do you have trouble getting transportation to medical appointments?: Yes Do you have trouble paying your heating and electricity bill?: No Do you have trouble taking care of your child, family member or friend?: No Do you have trouble with day-to-day activities such as bathing, preparing meals, shopping, managing finances, etc.?: Yes Are you currently unemployed and looking for a job?: No Are you interested in more education?: No Please select the resources that you would like help with: None Currently or been in a relationship where the following occur: No concerns reported THRIVE Score: 3 AUDIT C Alcohol Use Questionnaire (AUDIT-C) 1. How often do you have a drink containing alcohol?: Monthly or less 2. How many drinks containing alcohol do you have on a typical day when you are drinking?: 3 or 4 3. How often do you have six or more drinks on one occasion?: Never Total Score: 2 DANIE-7 AMB Questionnaire DANIE-7 Date DANIE - 7 assessed: 04/08/25 Feeling nervous, anxious, or on edge: 0 = Not at all Not being able to stop or control worryin = Not at all Worrying too much about different things: 0 = Not at all Trouble relaxin = Not at all Being so restless that it is hard to sit still: 0 = Not at all Becoming easily annoyed or irritable: 0 = Not at all Feeling afraid as if something awful might happen: 0 = Not at all Total DANIE-7 score (0-4 normal; 5-9 mild; 10-14 moderate; 15-21 severe): 0 Source: Developed by Drs. Basilio Esteves, Gina Sales, Zev Ambriz and colleagues, with an educational teodoro from [employer]. Physical exam (Primary Care) Vital Signs: Last Vital Signs Pulse 97 04/08/25 15:49 BP 138/96 H 04/08/25 15:49 Pulse Ox 95 04/08/25 15:49 Oxygen Delivery Method Room Air 04/08/25 15:49 BMI result Body Mass Index 29.1 Tobacco/Smoking Status: Tobacco use Status Tobacco use date assessed 04/08/25 04/08/25 15:53 Patient Tobacco Use Status Former Tobacco user 04/08/25 15:53 Tobacco use type Cigarette 04/08/25 15:53 e-Cigarette/Vaping Use Never Used 04/08/25 15:53 PHQ-9: PHQ-9 Score PHQ-9: Total score 04/08/25 16:25 Depression Screening Interpretation: Positive Thrive Assessment: Date of Thrive Assessment Date Thrive assessed 04/08/25 04/08/25 15:53 Currently or been in a relationship where the following occur: No concerns reported Const General: alert; No acute distress Eyes Conjunctivae: conjunctivae normal Resp Auscultation: clear to auscultation bilaterally Cardio Rate: regular rate Rhythm: regular rhythm GI Inspection: Yes normal to inspection Extrem General: Yes normal to inspection and No edema Coding Level of Care Code Est Pt Level 4 (93138) Complex EM visit Add On G2211 Diagnoses Polysubstance abuse F19.10 Alcohol abuse F10.10 Acute on chronic heart failure with preserved ejection fraction (HFpEF) I50.33 Hypercholesterolemia E78.00 Impaired glucose tolerance R73.02 Obesity (BMI 30.0-34.9) E66.9 Gastroesophageal reflux disease without esophagitis K21.9 Esophagitis presence: without esophagitis PSA elevation R97.20 Avascular necrosis of left femoral head M87.052 Assessment & Plan Assessment & Plan (1) Polysubstance abuse: Comment: Alcohol and cocaine Code(s): F19.10 - Other psychoactive substance abuse, uncomplicated Category: Medical Plan: Is strongly advised to stop using cocaine patient denies any cocaine use. (2) Alcohol abuse: Code(s): F10.10 - Alcohol abuse, uncomplicated Category: Social Hx Plan: Patient is advised to abstain from alcohol patient states drinks 3 beers a day to help with the hip pain left. Discussed about pain medication but advised to stop alcohol (3) Acute on chronic heart failure with preserved ejection fraction (HFpEF): Code(s): I50.33 - Acute on chronic diastolic (congestive) heart failure Category: Medical Plan: Continue to follow-up with cardiology on furosemide (4) Hypercholesterolemia: Code(s): E78.00 - Pure hypercholesterolemia, unspecified Category: Medical Plan: Avoid fried foods, chicken skin, eggs, butter margarine, pastries and meat. Be it pork or beef they have a lot of cholesterol LDL goal of less than 100 and triglyceride of less than 150 on atorvastatin 80 mg once a day (5) Impaired glucose tolerance: Code(s): R73.02 - Impaired glucose tolerance (oral) Category: Medical Plan: Decrease the amount of carbohydrate intake, pasta, bread, rice and potatoes are all sugar and that is aside from all the sweet stuff, remember that fruits are good but they are Sweet also. (6) Obesity (BMI 30.0-34.9): Comment: Current BMI 31.9, he has put on a few more lbs Code(s): E66.9 - Obesity, unspecified Category: Medical Plan: Diet and exercise (7) GERD (gastroesophageal reflux disease): Code(s): K21.9 - Gastro-esophageal reflux disease without esophagitis Category: Medical Qualifiers: Esophagitis presence: without esophagitis Qualified Code(s): K21.9 - Gastro-esophageal reflux disease without esophagitis Plan: Avoid the foods that causes that usually spicy foods, tomato products, juices, coffee, soda and foods that your sensitive to. After eating do not lie down, allow 3-4 hours before in lie down. And keep the head of bed above 30 degrees to avoid the acid from going up. (8) PSA elevation: Code(s): R97.20 - Elevated prostate specific antigen [PSA] Category: Medical Plan: Patient met with Urology and continue surveillance (9) Avascular necrosis of left femoral head: Code(s): M87.052 - Idiopathic aseptic necrosis of left femur Category: Medical Plan: Patient has met with the surgeon and does need surgery but because of alcohol and polysubstance abuse not able to and patient will need pulmonary in cardiology clearance Plan History of Present Illness The patient is a 65-year-old male presenting for follow-up of multiple chronic conditions and substance abuse management. The patient has a history of hypercholesterolemia, managed with atorvastatin 80 mg, targeting an LDL goal of less than 100 mg/dL and triglycerides less than 150 mg/dL. He also has a history of cerebrovascular accident (CVA) and left subclavian artery occlusion, for which he underwent bypass surgery in 2016. The patient has a significant history of alcohol abuse and polysubstance use, including cocaine, impacting his ability to undergo necessary surgical interventions for osteonecrosis of the left femoral head. He has been advised to abstain from alcohol and cocaine for at least 12 months to be eligible for surgery and requires pulmonary and cardiac clearance. The patient has a history of congestive heart failure and chronic obstructive pulmonary disease (COPD), for which he is on increased doses of albuterol. He has experienced rib fractures and associated left-sided rib pain, managed with narcotic pain medication. The patient reports dysphagia, for which a mixed cream was ordered, but results are not available. He also has anemia, with a recent hemoglobin level of 13.5 g/dL. Health Maintenance - Advised to abstain from alcohol and cocaine for at least 12 months to be eligible for surgery. - Requires pulmonary and cardiac clearance for surgical eligibility. - On atorvastatin 80 mg for hypercholesterolemia management, targeting LDL less than 100 mg/dL and triglycerides less than 150 mg/dL. Social History - Substance use: History of alcohol and cocaine use, advised to abstain for surgical eligibility. Review of Systems - Respiratory: Reports dyspnea, managed with increased albuterol. - Musculoskeletal: Reports left hip pain due to osteonecrosis. - Gastrointestinal: Reports dysphagia, awaiting results from mixed cream intervention. Physical Exam Results - Labs: Hemoglobin level of 13.5 g/dL indicating anemia. Plan The patient is advised to abstain from alcohol and cocaine for at least 12 months to be eligible for surgical intervention for osteonecrosis of the left femoral head. Pulmonary and cardiac clearance are required prior to surgery. For hypercholesterolemia, the patient is to continue atorvastatin 80 mg with a target LDL of less than 100 mg/dL and triglycerides less than 150 mg/dL. The patient is on increased albuterol for COPD management. Pain management for rib fractures includes narcotic pain medication, and the patient is advised to avoid alcohol to prevent complications. The patient is to follow up with urology for PSA monitoring and with cardiology for ongoing management of congestive heart failure. Patient was informed and verbally consented to the use of an ambient scribe for clinic note documentation during this visit. Discussion Notes I discussed with the patient the importance of abstaining from alcohol and cocaine for at least 12 months to qualify for surgery on the left femoral head due to osteonecrosis. We reviewed the need for pulmonary and cardiac clearance before proceeding with surgery. I emphasized the continuation of atorvastatin for hypercholesterolemia management and the use of increased albuterol for COPD. We also discussed pain management strategies for rib fractures and the necessity of avoiding alcohol to prevent further complications. Patient Instructions - Stop using alcohol and cocaine for at least 12 months to be eligible for surgery. - Continue taking atorvastatin 80 mg daily to manage cholesterol levels. - Use albuterol as prescribed for COPD management. - Avoid alcohol to prevent complications with pain management medications. - Follow up with urology for PSA monitoring and cardiology for heart failure management. Medications: New tramadol 50 mg PO BEDTIME 7 tabs 0RF M87.052 - Idiopathic aseptic necrosis of left femur gabapentin 600 mg PO TID 90 tabs 1RF 30 days M87.052 - Idiopathic aseptic necrosis of left femur Refilled alprazolam 0.25 mg PO BEDTIME PRN 30 tabs 0RF anxiety F41.9 - Anxiety disorder, unspecified Discontinued gabapentin Discontinued Reason: Duplicate 600 mg (2 x 300 mg) PO TID 90 days 540 caps 1RF
--- OUTSIDE RECORDS SUMMARY | 2025-04-08 15:49 | XMS_ITS | Clinical Summary ---
Author Organization [facility] Address [address] [facility] [address] [place] [address] Care Team Providers Care Sr Risk Management Consultant Name Role Phone Unavailable Primary Care Provider [...] DENTAL - HSN FULL (MEDICAID) [place] [id number] [place] [id number]
== END 2025-04-08 16:40 | disposition home or self-care (01) ==
LOC: HO.HMCH 15:47
PROVIDERS: PCP Internal Medicine; Visit Provider Internal Medicine
DX: I50.33 Acute on chronic diastolic (congestive) heart failure (principal); F19.10 Other psychoactive substance abuse, uncomplicated; M87.052 Idiopathic aseptic necrosis of left femur; E66.9 Obesity, unspecified; Z68.29 Body mass index [BMI] 29.0-29.9, adult; F10.10 Alcohol abuse, uncomplicated; E78.00 Pure hypercholesterolemia, unspecified; R73.02 Impaired glucose tolerance (oral); K21.9 Gastro-esophageal reflux disease without esophagitis; R97.20 Elevated prostate specific antigen [PSA]

== ENCOUNTER → 2025-04-08 15:46 | Outpatient (BNVA) | payer MEDICARE, SELFPAY | PROVIDERS: PCP Internal Medicine; Visit Provider Internal Medicine | DX: I50.33 Acute on chronic diastolic (congestive) heart failure (principal); F19.10 Other psychoactive substance abuse, uncomplicated; F10.10 Alcohol abuse, uncomplicated; F41.9 Anxiety disorder, unspecified; E78.00 Pure hypercholesterolemia, unspecified; R73.02 Impaired glucose tolerance (oral); E66.9 Obesity, unspecified; K21.9 Gastro-esophageal reflux disease without esophagitis; R97.20 Elevated prostate specific antigen [PSA]; M87.052 Idiopathic aseptic necrosis of left femur; Z86.73 Personal history of transient ischemic attack (TIA), and cerebral infarction without residual deficits | CPT/HCPCS: 96127; 99212 ==

== ENCOUNTER → 2025-04-11 10:51 | Outpatient (REF) | payer MEDICARE, SELFPAY ==
--- OUTSIDE RECORDS SUMMARY | 2025-04-11 12:16 | XMS_ITS | Clinical Summary ---
Author Organization [facility] Address [address] [facility] [address] [place] [address] Care Team Providers Care Title I Assistant Name Role Phone Unavailable Primary Care [...] DENTAL - HSN FULL (MEDICAID) [place] [id number] [place] [id number]
== END ==
LOC: HO.SL 10:51
PROVIDERS: PCP Internal Medicine; Visit Provider Internal Medicine
DX: G47.33 Obstructive sleep apnea (adult) (pediatric) (principal); R40.0 Somnolence
CPT/HCPCS: 95806

== ENCOUNTER → 2025-04-11 10:58 | Outpatient (BNV) | payer MEDICARE, SELFPAY | PROVIDERS: PCP Internal Medicine; Visit Provider Internal Medicine | DX: G47.33 Obstructive sleep apnea (adult) (pediatric) (principal) | CPT/HCPCS: 95806 ==

== ENCOUNTER 2025-04-28 11:13 | Outpatient (AMB) | payer MEDICARE, SELFPAY ==
--- NOTE | 2025-04-28 11:23 | A.OFFVIS_ITS ---
Vital Signs 04/28/25 11:24 Height 5 ft 11 in BMI Reason not done Patient refused/unable BP 120/62 Blood Pressure Location Lt brachial Position Sitting Pulse 94 Pulse Source Pulse Oximeter Pulse Oximetry (%) 93 Oxygen Delivery Method Room Air Intake Visit Reasons: COPD Intake Note: pt is here for follow up and states the stuff is stuck in his throat, lesion on tongue noticed 3 weeks ago, and possilby hit his face, and left hand issue, pt would like to be cleared for possible hip replacment left by Dr. nielsen. pulm needs to clear to have this surgery. Returned Telephone Equipment Appraiser Required: No Allergies divalproex sodium (Depakote) Allergy (Unknown, Verified 04/28/25 11:49) Unknown rosuvastatin Allergy (Unknown, Verified 04/28/25 11:49) SOB finasteride Allergy (Intermediate, Uncoded 04/28/25 11:49) Hives Medication List - Last Reconciled 04/28/25 by Rey Oneil MD [shower chair As directed] acetaminophen 650 mg PO Q4H PRN albuterol sulfate 90 mcg/actuation 2 puffs inhalation Q4H PRN albuterol sulfate 2.5 mg (3 mL) inhalation QID PRN 30 days alprazolam 0.25 mg PO BEDTIME PRN apixaban (Eliquis) 2.5 mg PO BID aspirin 81 mg PO DAILY atorvastatin 80 mg PO BEDTIME bupropion HCl SR (Wellbutrin SR) 150 mg PO BID cetirizine (Zyrtec) 10 mg PO DAILY PRN cyanocobalamin (vitamin B-12) 1,000 mcg PO DAILY fluticasone propionate 50 mcg/actuation 2 sprays intranasal DAILY furosemide 20 mg See Protocol PO DAILY gabapentin 600 mg PO TID 30 days ipratropium-albuterol 0.5 mg-3 mg(2.5 mg base)/3 mL 3 mL inhalation Q4-6H PRN [id number] mcg (Centrum Silver Ultra Men's) 1 tab PO DAILY nicotine (polacrilex) 2 mg buccal Q2H PRN nystatin 5 mL PO QID omeprazole 20 mg PO BID@0630,1630 tamsulosin 0.4 mg PO DAILY 90 days tramadol 50 mg PO BEDTIME umeclidinium 62.5 mcg/actuation (Incruse Ellipta) 1 inh PO DAILY [WALKER As directed] Do you need a note to return to daycare/school/sports/work: No HPI HPI COPD: Details: 65 years old gentleman is here for short-term follow-up. Breathing montemayor he is doing better, but still has cough and a feeling of mucus stuck in his upper airways. He continues to use nystatin swishes. Uses O2 2 L/minute at night. Still smokes 2-3 cigarettes a day but may be more. He had a home-based sleep study which is positive for sleep apnea and also he had nocturnal hypoxemia throughout the night. [facility] Medical History (Updated 04/28/25 @ 11:58 by Rey Oneil MD) COPD (chronic obstructive pulmonary disease) TA (obstructive sleep apnea) Counseling on substance use and abuse Severe sepsis COPD (chronic obstructive pulmonary disease) Generalized anxiety disorder COPD with acute exacerbation SOB (shortness of breath) Anxiety Smoker Pharyngitis Arthritis Abdominal hernia Numbness Tinea cruris Pes anserinus bursitis of left knee Rib fractures Osteoarthritis of right hip Right hip pain Sinus congestion Overweight (BMI 25.0-29.9) Urgency of micturition Carpal tunnel syndrome Femoral fracture Pulmonary nodule BPH (benign prostatic hyperplasia) Seizure disorder Insomnia Vitamin D deficiency Impaired glucose tolerance Hypercholesterolemia GERD (gastroesophageal reflux disease) Polysubstance abuse Left subclavian artery occlusion Brain aneurysm CVA (cerebral vascular accident) Vocal cord polyp Vitamin B12 deficiency Surgical History History of nasal surgery H/O colonoscopy Stenosis of subclavian bypass History of surgery History of orthopedic surgery History of knee replacement procedure of right knee Family History Father CAD (coronary artery disease) Kidney malignancy Mother Myocardial infarction Brother Prostate cancer Social History Household Members: Other Household Members Other:: roomate Housing: House Housing Other:: mobile home Are you a primary long term acute care registered nurse to a significant other at home: No Do you presently have visiting nurse or other home services: Yes 75 years or older and lives alone: No Unable to assess alcohol history related to: Unknown Alcohol intake: current Alcohol intake frequency: a few times a week Alcohol type: beer Comment: 4 drinks last night Patient Tobacco Use Status: Former Tobacco user Tobacco use type: Cigarette Cigarette Packs Per Day: 2 Cigarettes Per Day: 0.25 Years Smoked: 55 e-Cigarette/Vaping Use: Never Used Second Hand Smoke Exposure: No Substance Use Type: Crack/Cocaine service: No Current occupational status: unemployed Cognitive needs: Yes (Cane) Hearing needs: No Vision needs: Yes Review of Systems Const All systems reviewed & are unremarkable except as noted in HPI and below Eyes Reports no additional complaints ENT Reports no additional complaints Card Denies chest pain, Denies irregular heart rhythm and Denies leg edema Resp Reports as per HPI GI Reports constipation and Reports heartburn Reports no additional complaints Musc Reports arthralgias (HIPS) Skin/Breast Reports system reviewed and no additional complaints, except as documented Neuro Reports no additional complaints Psych Reports no additional complaints Endo Reports no additional complaints Sarkis/Lymph Reports no additional complaints Physical Exam Vital Signs: Last Vital Signs Pulse 94 04/28/25 11:24 BP 120/62 04/28/25 11:24 Pulse Ox 93 04/28/25 11:24 Oxygen Delivery Method Room Air 04/28/25 11:24 Const General: comfortable, no acute distress, alert and awake Orientation/consciousness: patient oriented x3 HEENT Head: Yes normal to inspection General nose exam: No nasal polyps present and No nasal discharge present Face and sinus: Yes sinuses nontender Mouth: oropharynx normal (ON THIS VISIT I DO NOT SEE ANY ERYTHEMA OR SWELLING OR ULCERS IN HIS MOUTH.) Throat: Yes posterior oropharynx normal Eyes General: appearance normal, both eyes and all related structures Neck Other: SCAR ON THE LEFT SIDE FROM PREVIOUS CAROTID ENDARTERECTOMIES RECENT REVISION OF THE SURGERY. Neck: Yes normal visual inspection, Yes no lymphadenopathy, Yes trachea midline and Yes no JVD Thyroid: Thyroid normal Chest Chest palpation & inspection: normal inspection of the chest (HIS SURGICAL SCAR IN THE LEFT PECTORAL AREA FROM RECENT VASCULAR SURGERY), normal palpation of entire chest wall and tenderness (Over the left mid chest, but no crepitus ) Resp Other: PERCUSSION NOTE IS RESONANT, BREATH SOUNDS ARE DISTANT AND ESPECIALLY DECREASED OVER THE BASILAR AREAS NO CREPITATIONS OR WHEEZES ARE HEARD TODAY . Cardio Palpation: normal PMI Rate: regular rate Rhythm: regular rhythm Heart sounds: no gallops and no murmurs GI Palpation (GI): Soft to palpation, nontender, No hepatosplenomegaly present and no masses Auscultation: normal bowel sounds Back/Spine/Pelvis Thoracic/Lumbar Spine: thoracic and lumbar spine normal to inspection Skin General skin exam: no rashes or lesions noted Neuro General: patient oriented x3 and no focal motor deficits Cranial nerves: Yes CN's II-XII intact bilaterally Extrem Other: He has the discomfort over the left hip, . Especially on standing and walking Today he is non ambulatory and comes to the office in a scooter. General: Yes normal to inspection, Yes no clubbing, cyanosis or edema and Yes no calf tenderness Psych Appearance: grossly normal and well kempt Speech and movement: Normal speech and movement present Results Reviewed Results Reviewed: Home-based sleep study on 04/11/2025. Has obstructive sleep apnea moderately severe with total sleep time AHI 18. Average O2 sat 87% throughout the night. Assessment & Plan Assessment & Plan (1) Tobacco abuse: Comment: Longstanding cigarette smoker. Has been advised many times to quit completely. This time after hospitalization, he has reduced this cigarettes but still smokes about 3-4 cigarettes a day Code(s): Z72.0 - Tobacco use Category: Medical Plan: Once again I stressed that he has to quit smoking completely. (2) Chronic respiratory failure with hypoxia: Comment: This gentleman does have chronic hypoxemic respiratory failure and he is on O2 2 L/minute, at night and PRN during the daytime Code(s): J96.11 - Chronic respiratory failure with hypoxia Category: Medical Plan: His nocturnal hypoxemia may be part of obstructive sleep apnea. For the time being keep on using O2 2 L/minute at night (3) COPD (chronic obstructive pulmonary disease): Comment: Patient does have chronic obstructive pulmonary disease, perpetuated why continued smoking, and recurrent respiratory infection. At present seems to be relatively stable. Code(s): J44.9 - Chronic obstructive pulmonary disease, unspecified Category: Medical Plan: Ipratropium-albuterol solution in the nebulizer Q 6 hours p.r.n. but may use twice a day anyway Continue to use Incruse Ellipta 1 inhalation daily (4) Cough: Comment: Continued cough is due to ongoing smoking and also part of chronic obstructive pulmonary disease. Code(s): R05.9 - Cough, unspecified Category: Medical Plan: Again advise that he has to quit smoking completely. Should use ipratropium-albuterol solution in the nebulizer at least twice a day regularly. (5) Polysubstance abuse: Comment: Chronic use of Alcohol and cocaine, claims that he has quit at present. Code(s): F19.10 - Other psychoactive substance abuse, uncomplicated Category: Medical Plan: Discussed with him again and told that he has to be absolutely free of any substance abuse, (6) TA (obstructive sleep apnea): Comment: Patient has crowded upper airways with a obese neck. Sleep study does confirm diagnosis of obstructive sleep apnea with nocturnal hypoxemia. Code(s): G47.33 - Obstructive sleep apnea (adult) (pediatric) Category: Medical Plan: CPAP titration study is ordered to be done in the sleep lab to determine the optimal pressure and appropriate interface, and also to make sure that hypoxemia is corrected. Orders: Orders RT PSG in-lab sleep titration Today Rey Oneil MD G47.33 - Obstructive sleep apnea (adult) (pediatric), J96.11 - Chronic respiratory failure with hypoxia Medications: Changed From furosemide 20 mg See Protocol PO DAILY 30 tabs 0RF To furosemide 20 mg See Protocol PO DAILY Wayne Guzman MD Coding Level of Care Code Est Pt Level 3 (11606) Diagnoses Tobacco abuse Z72.0 Chronic respiratory failure with hypoxia J96.11 Pulmonary emphysema, unspecified emphysema type J44.9 Cough R05.9 Polysubstance abuse F19.10 TA (obstructive sleep apnea) G47.33
[2025-04-28 11:24] VITALS: BP 120/62; PULSE 94; O2SAT 93
--- OUTSIDE RECORDS SUMMARY | 2025-04-28 11:58 | XMS_ITS | Encounter Summary ---
Author Organization [facility] Address [address] [place] [address] Care Team Providers Care Financial Administrative Assistant Name Role Phone Unavailable Primary Care Provider Unavailabl e Encounter Details Date Type Department Care Team (Late st Contact Info) Description 03/28/2022 Dental Interim Note [facility] [address] [place] [address] Anneliese Moreno, DDS [address] [place] [address] Social History Tobacco Use Types Packs/Day Years [...] Care Team (Late st Contact Info) Description 05/16/2025 1:00 PM EDT Interim Notes [facility] Unit [facility] [place] [address] 05/16/2025 1:40 PM EDT Office Visit [facility] [address] [place] [phone] Monica Cummings, LUZ MARINA [address] [place] [address] 05/16/2025 2:50 PM EDT Interim Notes [facility] Unit [address] [place] [phone] 06/16/2025 1:40 PM EDT Office Visit [facility] [address] [place] [phone] Jeaneth Chavez [address] [place] [address] documented as of this encounter Visit Diagnoses Not on filedocumented in this encounter
--- OUTSIDE RECORDS SUMMARY | 2025-04-28 11:58 | XMS_ITS | Clinical Summary ---
Author Organization [facility] [employer] [facility] Address [address] [facility] [address] [place] [address] Care Team Providers Care Ventilating Expert Name Role Phone Unavailable Primary Care Provider [...] exists Tobacco Screening 09/22/2024 09/22/2023 Influenza Vaccine (#1) 2025 , 08/14/2021, 06/16/2020, Additional history exists DTaP/Tdap/Td Vaccines [...] DENTAL - [facility] FULL (MEDICAID) [place] [id number] [place] [address]
== END 2025-04-28 11:51 | disposition home or self-care (01) ==
LOC: HO.HPS 11:14
PROVIDERS: PCP Internal Medicine; Visit Provider Internal Medicine
DX: Z72.0 Tobacco use (principal); J96.11 Chronic respiratory failure with hypoxia; J44.9 Chronic obstructive pulmonary disease, unspecified; R05.9 Cough, unspecified; F19.10 Other psychoactive substance abuse, uncomplicated; G47.33 Obstructive sleep apnea (adult) (pediatric)
CPT/HCPCS: 99213

== ENCOUNTER → 2025-04-28 11:13 | Outpatient (BNVA) | payer MEDICARE, SELFPAY | PROVIDERS: PCP Internal Medicine; Visit Provider Internal Medicine | DX: J96.11 Chronic respiratory failure with hypoxia (principal); J44.9 Chronic obstructive pulmonary disease, unspecified; R05.9 Cough, unspecified; F19.10 Other psychoactive substance abuse, uncomplicated; G47.33 Obstructive sleep apnea (adult) (pediatric); F17.210 Nicotine dependence, cigarettes, uncomplicated; Z71.6 Tobacco abuse counseling | CPT/HCPCS: 99212 ==

== ENCOUNTER 2025-05-02 11:12 | Outpatient (AMB) | payer MEDICARE, SELFPAY ==
[2025-05-02 11:50] VITALS: BP 152/80; PULSE 87; TEMP 36.2; O2SAT 95
--- NOTE | 2025-05-02 11:50 | A.OFFPC_ITS ---
Vital Signs 3 05/02/25 11:50 Height 5 ft 11 in BMI Reason not done Patient refused/unable BP 152/80 H Blood Pressure Location Rt brachial Position Sitting Pulse 87 Pulse Source Pulse Oximeter Temp 97.1 F Temp Source Temporal Artery Scan Pulse Oximetry (%) 95 Oxygen Delivery Method Room Air Intake Visit Reasons: dysphagia, smoker Room Service Bellhop Required: No Accompanied by: Friend/Grinder Set Up Operator Centerless Allergies divalproex sodium (Depakote) Allergy (Unknown, Verified 05/02/25 12:00) Unknown rosuvastatin Allergy (Unknown, Verified 05/02/25 12:00) SOB finasteride Allergy (Intermediate, Uncoded 05/02/25 12:00) Hives Tobacco use date assessed: 04/08/25 Dental Screening Dental Screen Date: 04/08/25 [facility] Medical History (Updated 04/28/25 @ 11:58 by Rey Oneil MD) COPD (chronic obstructive pulmonary disease) TA (obstructive sleep apnea) Counseling on substance use and abuse Severe sepsis COPD (chronic obstructive pulmonary disease) Generalized anxiety disorder COPD with acute exacerbation SOB (shortness of breath) Anxiety Smoker Pharyngitis Arthritis Abdominal hernia Numbness Tinea cruris Pes anserinus bursitis of left knee Rib fractures Osteoarthritis of right hip Right hip pain Sinus congestion Overweight (BMI 25.0-29.9) Urgency of micturition Carpal tunnel syndrome Femoral fracture Pulmonary nodule BPH (benign prostatic hyperplasia) Seizure disorder Insomnia Vitamin D deficiency Impaired glucose tolerance Hypercholesterolemia GERD (gastroesophageal reflux disease) Polysubstance abuse Left subclavian artery occlusion Brain aneurysm CVA (cerebral vascular accident) Vocal cord polyp Vitamin B12 deficiency Surgical History History of nasal surgery H/O colonoscopy Stenosis of subclavian bypass History of surgery History of orthopedic surgery History of knee replacement procedure of right knee Family History Father CAD (coronary artery disease) Kidney malignancy Mother Myocardial infarction Brother Prostate cancer Social History Household Members: Other Household Members Other:: roomate Housing: House Housing Other:: mobile home Are you a primary janitor caretaker to a significant other at home: No Do you presently have visiting nurse or other home services: Yes 75 years or older and lives alone: No Unable to assess alcohol history related to: Unknown Alcohol intake: current Alcohol intake frequency: a few times a week Alcohol type: beer Comment: 4 drinks last night Patient Tobacco Use Status: Former Tobacco user Tobacco use type: Cigarette Cigarette Packs Per Day: 2 Cigarettes Per Day: 0.25 Years Smoked: 55 e-Cigarette/Vaping Use: Never Used Second Hand Smoke Exposure: No Substance Use Type: Crack/Cocaine service: No Current occupational status: unemployed Cognitive needs: Yes (Cane) Hearing needs: No Vision needs: Yes Questionnaire Thrive Questionnaire Date Thrive assessed: 04/08/25 I am a: Patient What is your living situation today?: I have a steady place to live Within the past 12 months, did the food you bought not last and you didn't have the money to get more?: Sometimes True Within the past 12 months, did you worry whether your food would run out before you got money to buy more?: Sometimes True Do you have trouble paying for medicines?: No Do you have trouble getting transportation to medical appointments?: Yes Do you have trouble paying your heating and electricity bill?: No Do you have trouble taking care of your child, family member or friend?: No Do you have trouble with day-to-day activities such as bathing, preparing meals, shopping, managing finances, etc.?: Yes Are you currently unemployed and looking for a job?: No Are you interested in more education?: No Currently or been in a relationship where the following occur: No concerns reported THRIVE Score: 3 DANIE-7 AMB Questionnaire DANIE-7 Date DANIE - 7 assessed: 04/08/25 Source: Developed by Drs. Basilio Esteves, Gina Sales, Zev Ambriz and colleagues, with an educational teodoro from [employer]. Physical exam (Primary Care) Vital Signs: Last Vital Signs Temp 97.1 F 05/02/25 11:50 Pulse 87 05/02/25 11:50 BP 152/80 H 05/02/25 11:50 Pulse Ox 95 05/02/25 11:50 Oxygen Delivery Method Room Air 05/02/25 11:50 Tobacco/Smoking Status: Tobacco use Status Tobacco use date assessed 04/08/25 05/02/25 11:53 Patient Tobacco Use Status Former Tobacco user 05/02/25 11:53 Tobacco use type Cigarette 05/02/25 11:53 e-Cigarette/Vaping Use Never Used 05/02/25 11:53 Thrive Assessment: Date of Thrive Assessment Date Thrive assessed 04/08/25 05/02/25 11:53 Currently or been in a relationship where the following occur: No concerns reported Const General: alert; No acute distress HENMT Mouth/tongue images: 2 1. 1 cm smooth rounded lesion on the left side of the tongue Eyes Conjunctivae: conjunctivae normal Resp Auscultation: clear to auscultation bilaterally Cardio Rate: regular rate Rhythm: regular rhythm GI Inspection: Yes normal to inspection Extrem General: Yes normal to inspection and No edema Results AMB Hemoglobin A1c 2 AMB Hemoglobin A1c 5.9 % Last Edit by MADDIE Brown on 05/02/25 12:05 Results Reviewed Results Reviewed: Laboratory Last Values Hgb A1c (Clinic) 5.9 % (4.0-6.0) 05/02/25 11:50 Coding Level of Care Code Est Pt Level 4 (82346) Diagnoses Polysubstance abuse F19.10 Avascular necrosis of left femoral head M87.052 Pulmonary emphysema, unspecified emphysema type J44.9 TA (obstructive sleep apnea) G47.33 Tobacco abuse Z72.0 Tongue lesion K14.8 Assessment & Plan Assessment & Plan (1) Polysubstance abuse: Comment: Chronic use of Alcohol and cocaine, claims that he has quit at present. Code(s): F19.10 - Other psychoactive substance abuse, uncomplicated Category: Medical Plan: Patient is strongly advised to stop. (2) Avascular necrosis of left femoral head: Code(s): M87.052 - Idiopathic aseptic necrosis of left femur Category: Medical Plan: Patient on tramadol for pain (3) COPD (chronic obstructive pulmonary disease): Comment: Patient does have chronic obstructive pulmonary disease, perpetuated why continued smoking, and recurrent respiratory infection. At present seems to be relatively stable. Code(s): J44.9 - Chronic obstructive pulmonary disease, unspecified Category: Medical Plan: Continue with the albuterol inhaler patient follows up with Pulmonary (4) TA (obstructive sleep apnea): Comment: Patient has crowded upper airways with a obese neck. Sleep study does confirm diagnosis of obstructive sleep apnea with nocturnal hypoxemia. Code(s): G47.33 - Obstructive sleep apnea (adult) (pediatric) Category: Medical Plan: Continue with the use of the CPAP more than 4 hours a night and benefits from (5) Tobacco abuse: Comment: Longstanding cigarette smoker. Has been advised many times to quit completely. This time after hospitalization, he has reduced this cigarettes but still smokes about 3-4 cigarettes a day Code(s): Z72.0 - Tobacco use Category: Medical Plan: Patient was advised to stop! (6) Tongue lesion: Code(s): K14.8 - Other diseases of tongue Category: Medical Plan History of Present Illness The patient is a 65-year-old male presenting for a follow-up visit. He has a history of multiple medical conditions including Gastroesophageal Reflux Disease (GERD), hypercholesterolemia, and prediabetes. The patient also has a history of cerebrovascular accident (CVA) and is a smoker with a history of alcohol abuse. The patient has been diagnosed with avascular necrosis of the left femoral head and congestive heart failure. He also has a history of polysubstance abuse, chronic obstructive pulmonary disease (COPD), and obstructive sleep apnea. The patient is currently on oxygen therapy for respiratory failure, using 2 liters via nasal cannula, and has been advised to continue using a CPAP machine for more than 4 hours a night, which he finds beneficial. He is also on inhalers and has been advised to continue with albuterol inhaler therapy. The patient has been advised to stop smoking and has been on tramadol for pain management. He has expressed difficulty in walking due to hip issues and has discussed the need for knee surgery with Dr. Murrieta, although he has not yet received clearance for the procedure. Health Maintenance Social History - Substance Use: Smoker and history of alcohol abuse. Review of Systems - Respiratory: Reports use of CPAP for obstructive sleep apnea, benefits from its use. - Musculoskeletal: Reports difficulty walking due to hip issues. Physical Exam Results Plan The patient is advised to continue using the CPAP machine for more than 4 hours a night, as it has been beneficial for his obstructive sleep apnea. He should continue with the albuterol inhaler therapy and maintain oxygen therapy at 2 liters via nasal cannula for respiratory failure. The patient is strongly advised to stop smoking to improve his respiratory health and overall well-being. Pain management with tramadol should be continued, and the patient should follow up with Dr. Murrieta regarding the potential knee surgery once clearance is obtained. Patient was informed and verbally consented to the use of an ambient scribe for clinic note documentation during this visit. Discussion Notes I discussed with the patient the importance of continuing CPAP therapy for his obstructive sleep apnea and maintaining oxygen therapy for respiratory failure. We talked about the need to stop smoking to improve his respiratory health. The patient was informed about the continuation of tramadol for pain management and the need to follow up with Dr. Murrieta regarding knee surgery clearance. Patient Instructions - Continue using CPAP machine for more than 4 hours each night. - Maintain oxygen therapy at 2 liters via nasal cannula. - Continue using albuterol inhaler as prescribed. - Stop smoking to improve respiratory health. - Continue tramadol for pain management. - Follow up with Dr. Murrieta regarding knee surgery clearance. Orders: Orders 2 AMB Hemoglobin A1c Today R73.02 - Impaired glucose tolerance (oral) Referrals 2 Ear/Nose/Throat Referral K14.8 - Other diseases of tongue Medications: New 2 lidocaine HCl 2% 1 appl mucous membrane BID 100 mL 0RF K14.8 - Other diseases of tongue Refilled 2 gabapentin 600 mg PO TID 90 tabs 1RF 30 days M87.052 - Idiopathic aseptic necrosis of left femur alprazolam 0.25 mg PO BEDTIME PRN 30 tabs 2RF anxiety F41.9 - Anxiety disorder, unspecified tramadol 50 mg PO BEDTIME 30 tabs 1RF M87.052 - Idiopathic aseptic necrosis of left femur Discontinued 2 alprazolam Discontinued Reason: Doctor's Order 0.25 mg PO BEDTIME PRN 30 tabs 0RF anxiety F41.9 - Anxiety disorder, unspecified
--- OUTSIDE RECORDS SUMMARY | 2025-05-02 12:19 | XMS_ITS | Encounter Summary ---
Author Organization [facility] Address [address] [place] [address] Care Team Providers Care Assistant Professor Of Biochemistry Name Role Phone Unavailable Primary Care Provider Unavailabl e Encounter Details Date Type Department Care Team (Late st Contact Info) Description 03/28/2022 Dental Interim Note [facility] Dental [address] [place] [address] Anneliese Moreno, DDS [address] [place] [address] Social History Tobacco Use Types Packs/Day Years [...] 1:00 PM EDT Interim Notes [facility] Unit [facility] [place] [address] 05/16/2025 1:40 PM EDT Office Visit [facility] [address] [place] [phone] Monica Cummings, LUZ MARINA [address] [place] [address] 05/16/2025 2:50 PM EDT Interim Notes [facility] Unit [address] [place] [phone] 06/16/2025 1:40 PM EDT Office Visit [facility] [address] [place] [phone] Jeaneth Chavez [address] [place] [address] documented as of this encounter Visit Diagnoses Not on filedocumented in this encounter
--- OUTSIDE RECORDS SUMMARY | 2025-05-02 12:19 | XMS_ITS | Clinical Summary ---
Author Organization [employer] Address [address] [facility] 7t [place] [address] Care Team Providers Care Hose Maker Name Role Phone Unavailable Primary Care [...] DENTAL - HSN FULL (MEDICAID) [place] [id number] [place] [address]
== END 2025-05-02 12:32 | disposition home or self-care (01) ==
LOC: HO.HMCH 11:13
PROVIDERS: PCP Internal Medicine; Visit Provider Internal Medicine
DX: F19.10 Other psychoactive substance abuse, uncomplicated (principal); M87.052 Idiopathic aseptic necrosis of left femur; J44.9 Chronic obstructive pulmonary disease, unspecified; G47.33 Obstructive sleep apnea (adult) (pediatric); Z72.0 Tobacco use; K14.8 Other diseases of tongue; R73.02 Impaired glucose tolerance (oral)

== ENCOUNTER → 2025-05-02 11:12 | Outpatient (BNVA) | payer MEDICARE, SELFPAY | PROVIDERS: PCP Internal Medicine; Visit Provider Internal Medicine | DX: F10.10 Alcohol abuse, uncomplicated (principal); F14.10 Cocaine abuse, uncomplicated; M87.052 Idiopathic aseptic necrosis of left femur; J44.9 Chronic obstructive pulmonary disease, unspecified; G47.33 Obstructive sleep apnea (adult) (pediatric); K14.8 Other diseases of tongue; R73.02 Impaired glucose tolerance (oral); Z86.73 Personal history of transient ischemic attack (TIA), and cerebral infarction without residual deficits; Z72.0 Tobacco use; Z79.891 Long term (current) use of opiate analgesic | CPT/HCPCS: 83036; 99212 ==

== ENCOUNTER → 2025-05-29 20:30 | Outpatient (REF) | payer MEDICARE, SELFPAY ==
--- OUTSIDE RECORDS SUMMARY | 2025-05-29 21:41 | XMS_ITS | Encounter Summary ---
Author Organization [facility] Address [address] [place] [address] Care Team Providers Care Quenching Machine Operator Name Role Phone Unavailable Primary Care Provider Unavailabl e Encounter Details Date Type Department Care Team (Late st Contact Info) Description 03/28/2022 Dental Interim Note [facility] [address] [place] [address] Anneliese Moreno, DDS [address] [place] [address] Social History Tobacco Use Types Packs/Day Years [...] Care Team (Late st Contact Info) Description 06/16/2025 1:40 PM EDT Office Visit [address] [phone] Jeaneth Chavez [address] [place] [address] 11/16/2025 1:00 PM EST Office Visit [address] [phone] Jeaneth Chavez [address] [place] [phone] documented as of this encounter Visit Diagnoses Not on filedocumented in this encounter
== END ==
LOC: HO.SL 20:30
PROVIDERS: PCP Internal Medicine; Visit Provider Internal Medicine
DX: G47.33 Obstructive sleep apnea (adult) (pediatric) (principal); J96.11 Chronic respiratory failure with hypoxia
CPT/HCPCS: 95811

== ENCOUNTER → 2025-05-29 21:29 | Outpatient (BNV) | payer MEDICARE, SELFPAY | PROVIDERS: PCP Internal Medicine; Visit Provider Internal Medicine | DX: G47.33 Obstructive sleep apnea (adult) (pediatric) (principal); R06.83 Snoring; G47.61 Periodic limb movement disorder | CPT/HCPCS: 95811 ==

== ENCOUNTER 2025-06-16 10:17 | Outpatient (AMB) | payer MEDICARE, SELFPAY ==
[2025-06-16 10:24] VITALS: BP 124/78; PULSE 92; O2SAT 94; BMI 27.9
--- NOTE | 2025-06-16 10:24 | A.OFFVIS_ITS ---
Vital Signs 06/16/25 10:24 Height 5 ft 11 in Weight 200 lb BMI 27.9 BP 124/78 Blood Pressure Location Lt brachial Position Sitting Pulse 92 Pulse Source Pulse Oximeter Pulse Oximetry (%) 94 Oxygen Delivery Method Room Air Intake Visit Reasons: copd Intake Note: pt is here for follow up of sleep study, he has oxygen at home already with [employer] for DME, he has stopped smoking x3 weeks, and feeling ookay today. Allergies divalproex sodium (Depakote) Allergy (Unknown, Verified 06/16/25 10:32) Unknown rosuvastatin Allergy (Unknown, Verified 06/16/25 10:32) SOB finasteride Allergy (Intermediate, Uncoded 06/16/25 10:32) Hives Medication List - Last Reconciled 06/16/25 by Rey Oneil MD [shower chair As directed] acetaminophen 650 mg PO Q4H PRN albuterol sulfate 90 mcg/actuation 2 puffs inhalation Q4H PRN albuterol sulfate 2.5 mg (3 mL) inhalation QID PRN 30 days alprazolam 0.25 mg PO BEDTIME PRN amoxicillin 2,000 mg (4 x 500 mg) PO ONCE apixaban (Eliquis) 2.5 mg PO BID aspirin 81 mg PO DAILY atorvastatin 80 mg PO BEDTIME bupropion HCl SR (Wellbutrin SR) 150 mg PO BID cetirizine (Zyrtec) 10 mg PO DAILY PRN cyanocobalamin (vitamin B-12) 1,000 mcg PO DAILY fluticasone propionate 50 mcg/actuation 2 sprays intranasal DAILY furosemide 20 mg See Protocol PO DAILY gabapentin 600 mg PO TID 30 days ipratropium-albuterol 0.5 mg-3 mg(2.5 mg base)/3 mL 3 mL inhalation Q4-6H PRN 30 days lidocaine HCl 2% 1 appl mucous membrane BID [id number] mcg (Centrum Silver Ultra Men's) 1 tab PO DAILY nicotine 1 patch transdermal DAILY nicotine (polacrilex) 2 mg buccal Q2H PRN nystatin 5 mL PO QID PRN omeprazole 20 mg PO BID@0630,1630 tamsulosin 0.4 mg PO DAILY 90 days tramadol 50 mg PO BEDTIME umeclidinium 62.5 mcg/actuation (Incruse Ellipta) 1 inh PO DAILY [WALKER As directed] Do you need a note to return to daycare/school/sports/work: No HPI HPI copd: Details: Stas is here after his CPAP titration study. He was successfully titrated with pressure of 13 cm using fullface mask. He also needed to use O2 2 L/minute along with the CPAP. One good thing is that he quit smoking, he also is not drinking alcohol . He claims that his breathing is fairly stable except for intermittent cough which is mostly nonproductive. He has dyspnea on exertion is difficult to evaluate because he is non ambulatory most of the time. Is anxiety level is definitely less than before. Because of his hip pain he is not able to stand and ambulate, he is anxious to have hip surgery. [facility] Medical History COPD (chronic obstructive pulmonary disease) TA (obstructive sleep apnea) Counseling on substance use and abuse Severe sepsis COPD (chronic obstructive pulmonary disease) Generalized anxiety disorder COPD with acute exacerbation SOB (shortness of breath) Anxiety Smoker Pharyngitis Arthritis Abdominal hernia Numbness Tinea cruris Pes anserinus bursitis of left knee Rib fractures Osteoarthritis of right hip Right hip pain Sinus congestion Overweight (BMI 25.0-29.9) Urgency of micturition Carpal tunnel syndrome Femoral fracture Pulmonary nodule BPH (benign prostatic hyperplasia) Seizure disorder Insomnia Vitamin D deficiency Impaired glucose tolerance Hypercholesterolemia GERD (gastroesophageal reflux disease) Polysubstance abuse Left subclavian artery occlusion Brain aneurysm CVA (cerebral vascular accident) Vocal cord polyp Vitamin B12 deficiency Surgical History History of nasal surgery H/O colonoscopy Stenosis of subclavian bypass History of surgery History of orthopedic surgery History of knee replacement procedure of right knee Family History Father CAD (coronary artery disease) Kidney malignancy Mother Myocardial infarction Brother Prostate cancer Social History Household Members: Other Household Members Other:: roomate Housing: House Housing Other:: mobile home Are you a primary intensive care unit nurse to a significant other at home: No Do you presently have visiting nurse or other home services: Yes 75 years or older and lives alone: No Unable to assess alcohol history related to: Unknown Alcohol intake: current Alcohol intake frequency: a few times a week Alcohol type: beer Comment: 4 drinks last night Patient Tobacco Use Status: Former Tobacco user Tobacco use type: Cigarette Cigarette Packs Per Day: 2 Cigarettes Per Day: 0.25 Years Smoked: 55 e-Cigarette/Vaping Use: Never Used Second Hand Smoke Exposure: No Substance Use Type: Crack/Cocaine service: No Current occupational status: unemployed Cognitive needs: Yes (Cane) Hearing needs: No Vision needs: Yes Review of Systems Const All systems reviewed & are unremarkable except as noted in HPI and below Eyes Reports no additional complaints ENT Reports no additional complaints Card Denies chest pain, Denies irregular heart rhythm and Denies leg edema Resp Reports as per HPI GI Reports constipation and Reports heartburn Reports no additional complaints Musc Reports arthralgias (HIPS) Skin/Breast Reports system reviewed and no additional complaints, except as documented Neuro Reports no additional complaints Psych Reports no additional complaints Endo Reports no additional complaints Sarkis/Lymph Reports no additional complaints Physical Exam Vital Signs: Last Vital Signs Pulse 92 06/16/25 10:24 BP 124/78 06/16/25 10:24 Pulse Ox 94 06/16/25 10:24 Oxygen Delivery Method Room Air 06/16/25 10:24 BMI result Body Mass Index 27.9 Const General: comfortable, no acute distress, alert and awake Orientation/consciousness: patient oriented x3 HEENT Head: Yes normal to inspection General nose exam: No nasal polyps present and No nasal discharge present Face and sinus: Yes sinuses nontender Mouth: oropharynx normal (ON THIS VISIT I DO NOT SEE ANY ERYTHEMA OR SWELLING OR ULCERS IN HIS MOUTH.) Throat: Yes posterior oropharynx normal Eyes General: appearance normal, both eyes and all related structures Neck Other: SCAR ON THE LEFT SIDE FROM PREVIOUS CAROTID ENDARTERECTOMIES RECENT REVISION OF THE SURGERY. Neck: Yes normal visual inspection, Yes no lymphadenopathy, Yes trachea midline and Yes no JVD Thyroid: Thyroid normal Chest Chest palpation & inspection: normal inspection of the chest (HIS SURGICAL SCAR IN THE LEFT PECTORAL AREA FROM RECENT VASCULAR SURGERY), normal palpation of entire chest wall and tenderness (Over the left mid chest, but no crepitus ) Resp Other: PERCUSSION NOTE IS RESONANT, BREATH SOUNDS ARE DISTANT AND ESPECIALLY DECREASED OVER THE BASILAR AREAS NO CREPITATIONS OR WHEEZES ARE HEARD TODAY . Cardio Palpation: normal PMI Rate: regular rate Rhythm: regular rhythm Heart sounds: no gallops and no murmurs GI Palpation (GI): Soft to palpation, nontender, No hepatosplenomegaly present and no masses Auscultation: normal bowel sounds Back/Spine/Pelvis Thoracic/Lumbar Spine: thoracic and lumbar spine normal to inspection Skin General skin exam: no rashes or lesions noted Neuro General: patient oriented x3 and no focal motor deficits Cranial nerves: Yes CN's II-XII intact bilaterally Extrem Other: He has the discomfort over the left hip, . Especially on standing and walking Today he is non ambulatory and comes to the office in a scooter. General: Yes normal to inspection, Yes no clubbing, cyanosis or edema and Yes no calf tenderness Psych Appearance: grossly normal and well kempt Speech and movement: Normal speech and movement present Results Reviewed Results Reviewed: The results of CPAP titration study were discussed with him. He needed CPAP of 13 cm using fullface mask. And also needed O2 2 L/minute. Assessment & Plan Assessment & Plan (1) COPD (chronic obstructive pulmonary disease): Comment: Patient does have chronic obstructive pulmonary disease, perpetuated why continued smoking, and recurrent respiratory infection. At present seems to be relatively stable. He quit smoking completely about 13 days ago, Code(s): J44.9 - Chronic obstructive pulmonary disease, unspecified Category: Medical Plan: Commended for finally quitting smoking. Given him good talk , so that he does not go back to smoking. COPD is relatively stable Advised to continue: INCRUSE ELLIPTA 1 INHALATION DAILY IPRATROPIUM-ALBUTEROL SOLUTION IN THE NEBULIZER Q 4 6 HOURS P.R.N. WHILE AWAKE ALBUTEROL HFA 2 PUFFS Q 4-6 HOURS P.R.N. WHEN OUTDOORS. (2) Tobacco abuse: Comment: Longstanding cigarette smoker. Has been advised many times to quit completely. This time after hospitalization, he had reduced cigarettes but still smoked about 3-4 cigarettes a day Today he tells me that he has quit completely about 13 days ago. . That is a good sign Code(s): Z72.0 - Tobacco use Category: Medical Plan: I commended him for quitting completely, and encouraged not to go back to smoking. He will still keep on getting annual low-dose CT scan of the chest. (3) Chronic respiratory failure with hypoxia: Comment: This gentleman does have chronic hypoxemic respiratory failure and he is on O2 2 L/minute, at night and PRN during the daytime Code(s): J96.11 - Chronic respiratory failure with hypoxia Category: Medical Plan: Even with the sleep study and CPAP titration he still required O2 2 L/minute along with the CPAP So I told him that he will continue to use the oxygen 2 L/minute and we will instruct the DME provider to bleed oxygen into his CPAP at night. (4) TA (obstructive sleep apnea): Comment: Patient has crowded upper airways with a obese neck. Sleep study does confirm diagnosis of obstructive sleep apnea with nocturnal hypoxemia. He underwent CPAP titration study and it was quite successful, with pressure of 13 cm. He did need O2 2 L/minute along with that. Code(s): G47.33 - Obstructive sleep apnea (adult) (pediatric) Category: Medical Plan: He was explained about his sleep study results. Educated about use of CPAP. He is agreeable. And I have ordered CPAP treatment with fullface mask and pressure of 13 cm, using. Heated humidification , and O2 2 L/minute And we will monitor his compliance and benefits closely. (5) Pharyngitis: Comment: HE HAS CHRONIC LOW-GRADE DIFFUSE PHARYNGITIS. AT PRESENT ALL THE ERYTHEMA AND ULCERATIONS SEEM TO HAVE CLEARED, Code(s): J02.9 - Acute pharyngitis, unspecified Category: Medical Plan: TOLD HIM THAT HE CAN CONTINUE TO RINSE HIS MOUTH WITH WATER AND . LITTLE SALT IN IT BUT DOES NOT NEED TO USE NYSTATIN SWISHES. (6) Avascular necrosis of left femoral head: Comment: PATIENT IS BEING FOLLOWED BY ORTHOPEDIC SERVICE, AND AWAITING. TO UNDERGO LEFT HIP SURGERY THE SURGERY WAS POSTPONED BECAUSE OF ALL HIS MEDICAL/PULMONARY PROBLEMS. AT THIS TIME HIS PULMONARY STATUS SEEMS TO BE STABLE. SLEEP APNEA WILL BE TREATED WITH CPAP AND O2 AT NIGHT. WE WILL WATCH HIS COMPLIANCE CLOSELY Code(s): M87.052 - Idiopathic aseptic necrosis of left femur Category: Medical Plan: I THINK HE CAN SAFELY UNDERGO THE HIP SURGERY , AND TO BE MONITORED CLOSELY FOR HIS MEDICAL/PULMONARY STATUS. Medications: Changed From nystatin 5 mL PO QID 200 mL 0RF To nystatin 5 mL PO QID PRN Coding Level of Care Code Est Pt Level 4 (63785) Diagnoses Pulmonary emphysema, unspecified emphysema type J44.9 Tobacco abuse Z72.0 Chronic respiratory failure with hypoxia J96.11 TA (obstructive sleep apnea) G47.33 Pharyngitis J02.9 Avascular necrosis of left femoral head M87.052
--- OUTSIDE RECORDS SUMMARY | 2025-06-16 11:36 | XMS_ITS | Clinical Summary ---
Author Organization [facility] Address [address] [place] [address] Care Team Providers Care Telephone Installer Name Role Phone Unavailable Primary Care Provider [...] daily apply a thin ribbon on toothbrush. [place] thoroughly once daily for two minutes, preferably [...] Problem Noted Date Diagnosed Date Intracranial aneurysm ([facility]) 05/03/2024 Seizure ([facility]) 05/03/2024 Bursitis of left knee 06/20/2022 Chronic pain 03/26/2022 Encounters Date Type Department Care Team Description 05/16/2025 1:40 PM EDT Office Visit [facility] [address] [place] [phone] Monica Cummings DDS from Last 3 Months Social History Tobacco [...] Sign Reading Time Taken Comments Blood Pressure 89/71 05/16/2025 2:27 PM EDT Pulse 81 05/16/2025 2:27 PM EDT Temperature - - Respiratory Rate - - Oxygen Saturation - - Inhaled Oxygen Concentration - - Weight - - Height - - Body Mass Index - - Plan of Treatment Upcoming Encounters Date Type Department Care Team (Late st Contact Info) Description 06/16/2025 1:40 PM EDT Office Visit [facility] [address] [place] [phone] Jeaneth Chavez [address] [place] [phone] 06/17/2025 9:20 AM EDT Interim Notes [facility] [place] [phone] 06/17/2025 10:00 AM EDT Office Visit [facility] [address] [place] [phone] Jim Linares R[facility] [address] [place] [phone] 06/17/2025 10:50 AM EDT Interim Notes [facility] [address] [place] [phone] 11/16/2025 1:00 PM EST Office Visit [facility] [address] [place] [phone] Jeaneth Chavez [address] [place] [address] Health Maintenance Due Date Last Done Comments Dental FMX/Pano 1958 Diabetes Screening 1958 Hepatitis C Screening 1958 Lipid Screening 1958 Tobacco Cessation Counseling (#1) 1958 Urine Drug Screen 1958 Imm-DTaP/Tdap/Td (1 - Tdap) 1977 Imm-Pneumococcal 50+ (1 of 2 - PCV) 1977 CT Colonography 2003 Colonoscopy 2003 Colorectal Cancer Screening 2003 FIT/gFOBT 2003 Fecal DNA 2003 Flexible Sigmoidoscopy 2003 Imm-Zoster, Recombinant (1 of 2) 2008 Abdominal Aortic Aneurysm Screening 2023 Falls Prevention 2023 [id number] ( season) 2024 Alcohol and Drug Screen 10/20/2024 Depression Annual Screen 10/20/2024 Imm-Influenza (#1) 2025 Dental BW 12/18/2025 12/16/2024, 03/20, 02/04/2023, Additional history exists Dental Examination 12/18/2025 12/16/2024, 0 04/01/2024, 02/04/2023, Additional history exists Dental Perio Charting 12/18/2025 12/16/2024 , 02/04/2023, 03/26/2022 Dental Prophy 12/18/2025 12/16/2024, 03/21, 02/04/2023, Additional history exists Hypertension Screening (#1) 05/16/2026 Procedures Procedure Name Priority Date/Time Associated Diagnosis Comments CASE PRESENTATION SUBS DTL & EXTENSIVE TX PLN Routine 05/16/2025 1:40 PM EDT Caries 29 B(V) RESIN-BASED COMPOSITE - ONE SURFACE POSTERIOR Routine 05/16/2025 1:40 PM EDT [facility] COMP PERIODONTAL EVALUATION - NEW/EST PATIENT Routine 12/16/2024 1:00 PM EST Caries of enamel (incipient) Caries BITEWINGS - FOUR RADIOGRAPHIC IMAGES Routine 12/16/2024 1:00 PM EST Caries of enamel (incipient) Caries PROPHYLAXIS - ADULT Routine 12/16/2024 1 :00 PM EST Caries of enamel (incipient) Caries PERIODIC ORAL EVALUATION ESTABLISHED PATIENT Routine 12/16/2024 1:00 PM EST Caries of enamel (incipient) Caries from Last 3 Months or Most Recently Relevant to Health Maintenance Insurance [facility]
--- OUTSIDE RECORDS SUMMARY | 2025-06-16 11:36 | XMS_ITS | Encounter Summary ---
Author Organization [facility] Address [address] [place] [address] Care Team Providers Care Supervisor Parking Lot Name Role Phone Unavailable Primary Care Provider Unavailabl e Encounter Details Date Type Department Care Team (Late st Contact Info) Description 03/28/2022 Dental Interim Note [facility] [address] [place] [phone] Anneliese Moreno, DDS [address] [place] [address] Social History Tobacco Use Types Packs/Day Years [...] Description 06/16/2025 1:40 PM EDT Office Visit [facility] [address] [place] [phone] Jeaneth Chavez [address] [place] [phone] 06/17/2025 9:20 AM EDT Interim Notes [facility] [address] [place] [phone] 06/17/2025 10:00 AM EDT Office Visit [facility] [address] [place] [phone] Jim Linares [facility] [address] [place] [address] 06/17/2025 10:50 AM EDT Interim Notes [facility] [address] [place] [phone] 11/16/2025 1:00 PM EST Office Visit [facility] [address] [place] [phone] Jeaneth Chavez [address] [place] [phone] documented as of this encounter Visit Diagnoses Not on filedocumented in this encounter
--- OUTSIDE RECORDS SUMMARY | 2025-06-16 11:36 | XMS_ITS | Clinical Summary ---
Author Organization [employer] Address [address] [facility] 7t [place] [address] Care Team Providers Care Slitting Machine Feeder Name Role Phone Unavailable Primary Care Provider [...] DENTAL - HSN FULL (MEDICAID) DEREK [place] [phone] [place] [address]
== END 2025-06-16 10:46 | disposition home or self-care (01) ==
LOC: HO.HPS 10:18
PROVIDERS: PCP Internal Medicine; Visit Provider Internal Medicine
DX: J44.9 Chronic obstructive pulmonary disease, unspecified (principal); Z72.0 Tobacco use; J96.11 Chronic respiratory failure with hypoxia; G47.33 Obstructive sleep apnea (adult) (pediatric); J02.9 Acute pharyngitis, unspecified; M87.052 Idiopathic aseptic necrosis of left femur
CPT/HCPCS: 99214

== ENCOUNTER → 2025-06-16 10:17 | Outpatient (BNVA) | payer MEDICARE, SELFPAY | PROVIDERS: PCP Internal Medicine; Visit Provider Internal Medicine | DX: J44.9 Chronic obstructive pulmonary disease, unspecified (principal); Z87.891 Personal history of nicotine dependence; J96.11 Chronic respiratory failure with hypoxia; G47.33 Obstructive sleep apnea (adult) (pediatric); J02.9 Acute pharyngitis, unspecified | CPT/HCPCS: 99212 ==

== ENCOUNTER 2025-07-28 10:01 | Outpatient (AMB) | payer MEDICARE, SELFPAY ==
[2025-07-28 10:09] VITALS: BP 130/68; PULSE 94; O2SAT 91; BMI 29.2
--- NOTE | 2025-07-28 10:09 | A.OFFVIS_ITS ---
Vital Signs 07/28/25 10:09 Height 5 ft 11 in Weight 209 lb 7.026 oz BMI 29.2 BP 130/68 Blood Pressure Location Rt brachial Position Sitting Pulse 94 Pulse Source Pulse Oximeter Pulse Oximetry (%) 91 L Oxygen Delivery Method Room Air Intake Visit Reasons: COPD Allergies divalproex sodium (Depakote) Allergy (Unknown, Verified 07/28/25 10:32) Unknown rosuvastatin Allergy (Unknown, Verified 07/28/25 10:32) SOB finasteride Allergy (Intermediate, Uncoded 07/28/25 10:32) Hives Medication List - Last Reconciled 07/28/25 by Rey Oneil MD [shower chair As directed] acetaminophen 650 mg PO Q4H PRN albuterol sulfate 2.5 mg (3 mL) inhalation QID PRN 30 days albuterol sulfate 90 mcg/actuation 2 puffs inhalation Q4H PRN alprazolam 0.25 mg PO BEDTIME PRN amoxicillin 2,000 mg (4 x 500 mg) PO ONCE apixaban (Eliquis) 2.5 mg PO BID aspirin 81 mg PO DAILY atorvastatin 80 mg PO BEDTIME bupropion HCl SR (Wellbutrin SR) 150 mg PO BID cetirizine (Zyrtec) 10 mg PO DAILY PRN cyanocobalamin (vitamin B-12) 1,000 mcg PO DAILY fluticasone propionate 50 mcg/actuation 2 sprays intranasal DAILY furosemide 20 mg See Protocol PO DAILY gabapentin 600 mg PO TID 30 days ipratropium-albuterol 0.5 mg-3 mg(2.5 mg base)/3 mL 3 mL inhalation Q4-6H PRN 30 days lidocaine HCl 2% 1 appl mucous membrane BID [id number] [id number] mcg (Centrum Silver Ultra Men's) 1 tab PO DAILY nicotine (polacrilex) 2 mg buccal Q2H PRN omeprazole 20 mg PO BID@0630,1630 [power wheelchair As directed] tamsulosin 0.4 mg PO DAILY 90 days tramadol 50 mg PO BEDTIME umeclidinium 62.5 mcg/actuation (Incruse Ellipta) 1 inh PO DAILY [WALKER As directed] Do you need a note to return to daycare/school/sports/work: No HPI HPI COPD: Details: TRACIE, 65 YEARS OLD GENTLEMAN, IS HERE FOR PULMONARY FOLLOW-UP. FINALLY HE HAS STOP SMOKING, HE HAS ALSO STOPPED DRINKING ALCOHOL EXCEPT ONCE IN A WHILE. HIS APPETITE IS BETTER, HE HAS PUT ON SOME WEIGHT. HE WAS DIAGNOSED TO HAVE SLEEP APNEA WITH HYPOXEMIA, NOW USING CPAP VERY REGULARLY ALONG WITH O2 2 L/MINUTE. HE IS SLEEPING UP TO 9 HOURS AND 40 MINUTES. THERE IS SLIGHT AIR LEAK. BUT HIS RESIDUAL AHI IS ONLY 2.6. MAIN ISSUE IS NOT ABLE TO STAND AND WALK HE REMAINS IN THE WHEELCHAIR, HE IS ANXIOUS TO HAVE THE HIP SURGERY SO THAT AFTER THAT HE CAN START WALKING AROUND. [facility] Medical History COPD (chronic obstructive pulmonary disease) TA (obstructive sleep apnea) Counseling on substance use and abuse Severe sepsis COPD (chronic obstructive pulmonary disease) Generalized anxiety disorder COPD with acute exacerbation SOB (shortness of breath) Anxiety Smoker Pharyngitis Arthritis Abdominal hernia Numbness Tinea cruris Pes anserinus bursitis of left knee Rib fractures Osteoarthritis of right hip Right hip pain Sinus congestion Overweight (BMI 25.0-29.9) Urgency of micturition Carpal tunnel syndrome Femoral fracture Pulmonary nodule BPH (benign prostatic hyperplasia) Seizure disorder Insomnia Vitamin D deficiency Impaired glucose tolerance Hypercholesterolemia GERD (gastroesophageal reflux disease) Polysubstance abuse Left subclavian artery occlusion Brain aneurysm CVA (cerebral vascular accident) Vocal cord polyp Vitamin B12 deficiency Surgical History History of nasal surgery H/O colonoscopy Stenosis of subclavian bypass History of surgery History of orthopedic surgery History of knee replacement procedure of right knee Family History Father CAD (coronary artery disease) Kidney malignancy Mother Myocardial infarction Brother Prostate cancer Social History Household Members: Other Household Members Other:: roomate Housing: House Housing Other:: mobile home Are you a primary life care planner to a significant other at home: No Do you presently have visiting nurse or other home services: Yes 75 years or older and lives alone: No Alcohol intake: current Alcohol intake frequency: a few times a week Alcohol type: beer Comment: 4 drinks last night Patient Tobacco Use Status: Former Tobacco user Tobacco use type: Cigarette Cigarette Packs Per Day: 2 Cigarettes Per Day: 0.25 Years Smoked: 55 e-Cigarette/Vaping Use: Never Used Second Hand Smoke Exposure: No Substance Use Type: Crack/Cocaine service: No Current occupational status: unemployed Cognitive needs: Yes (Cane) Hearing needs: No Vision needs: Yes Review of Systems Const All systems reviewed & are unremarkable except as noted in HPI and below Eyes Reports no additional complaints ENT Reports no additional complaints Card Denies chest pain, Denies irregular heart rhythm and Denies leg edema Resp Reports as per HPI GI Reports constipation and Reports heartburn Reports no additional complaints Musc Reports arthralgias (HIPS) Skin/Breast Reports system reviewed and no additional complaints, except as documented Neuro Reports no additional complaints Psych Reports no additional complaints Endo Reports no additional complaints Sarkis/Lymph Reports no additional complaints Physical Exam Vital Signs: Last Vital Signs Pulse 94 07/28/25 10:09 BP 130/68 07/28/25 10:09 Pulse Ox 91 L 07/28/25 10:09 Oxygen Delivery Method Room Air 07/28/25 10:09 BMI result Body Mass Index 29.2 Const General: comfortable, no acute distress, alert and awake Orientation/consciousness: patient oriented x3 HEENT Head: Yes normal to inspection General nose exam: No nasal polyps present and No nasal discharge present Face and sinus: Yes sinuses nontender Mouth: oropharynx normal (ON THIS VISIT I DO NOT SEE ANY ERYTHEMA OR SWELLING OR ULCERS IN HIS MOUTH.) Throat: Yes posterior oropharynx normal Eyes General: appearance normal, both eyes and all related structures Neck Other: SCAR ON THE LEFT SIDE FROM PREVIOUS CAROTID ENDARTERECTOMIES RECENT REVISION OF THE SURGERY. Neck: Yes normal visual inspection, Yes no lymphadenopathy, Yes trachea midline and Yes no JVD Thyroid: Thyroid normal Chest Chest palpation & inspection: normal inspection of the chest (HIS SURGICAL SCAR IN THE LEFT PECTORAL AREA FROM RECENT VASCULAR SURGERY), normal palpation of entire chest wall and tenderness (Over the left mid chest, but no crepitus ) Resp Other: PERCUSSION NOTE IS RESONANT, BREATH SOUNDS ARE DISTANT AND ESPECIALLY DECREASED OVER THE BASILAR AREAS NO CREPITATIONS OR WHEEZES ARE HEARD TODAY . Cardio Palpation: normal PMI Rate: regular rate Rhythm: regular rhythm Heart sounds: no gallops and no murmurs GI Palpation (GI): Soft to palpation, nontender, No hepatosplenomegaly present and no masses Auscultation: normal bowel sounds Back/Spine/Pelvis Thoracic/Lumbar Spine: thoracic and lumbar spine normal to inspection Skin General skin exam: no rashes or lesions noted Neuro General: patient oriented x3 and no focal motor deficits Cranial nerves: Yes CN's II-XII intact bilaterally Extrem Other: He has the discomfort over the left hip, . Especially on standing and walking Today he is non ambulatory and comes to the office in a scooter. General: Yes normal to inspection, Yes no clubbing, cyanosis or edema and Yes no calf tenderness Psych Appearance: grossly normal and well kempt Speech and movement: Normal speech and movement present Office Procedures Spirometry Testing Spirometry 01062- Spirometry (SRIKANTH DONE) Results Reviewed Results Reviewed: COMPLIANCE REPORT FOR THE LAST 30 NIGHTS, HE ACTUALLY STARTED USING THE CPAP ON , AND SINCE THEN HAS BEEN USING IT REGULARLY EVERY NIGHT. HE CLAIMS THAT HE SLEEPS MUCH BETTER AND HAS NO ISSUE WITH THE CPAP MASK OR CPAP MACHINE. RESIDUAL AHI ONLY 2.6 SPOROMETRY : FVC= 69 % FEV1= 46 % FEV1/FVC = 51 FEF 25-75 21 % C/W SEVERE COPD Assessment & Plan Assessment & Plan (1) COPD (chronic obstructive pulmonary disease): Comment: Patient does have chronic obstructive pulmonary disease, perpetuated BY continued smoking, and recurrent respiratory infection. At present seems to be relatively stable. Since his last visit he has been very stable. Has cut down smoking to only 1-2 cigarettes a day He has very minimal cough, sore throat and laryngitis almost resolved. * SPIROMETRY RESULTS ARE CONSISTENT WITH SEVERE OBSTRUCTIVE AIRWAY DISORDER, SLIGHTLY WORSE COMPARED TO THE RESULTS IN SEPTEMBER 2024. Code(s): J44.9 - Chronic obstructive pulmonary disease, unspecified Category: Medical Plan: Patient is commended for having quit smoking. * ADVISE THAT HE CAN NOT SMOKE EVEN 1 OR 2 CIGARETTES A DAY. Continue to use ipratropium-albuterol solution in the nebulizer Q 4-6 hours p.r.n. Incruse Ellipta 1 inhalation daily Albuterol HFA 2 puffs Q 6 hours p.r.n. when outdoors Advise that he should use his medicatins regularly. (2) Tobacco abuse: Comment: Patient claims that he has quit smoking since his recent hospitalization. He is no he 1 smoking 1 or 2 cigarettes a day. Code(s): Z72.0 - Tobacco use Category: Medical Plan: Advised that he has to quit completely and not use even 1 or 2 cigarettes (3) TA (obstructive sleep apnea): Comment: Patient has crowded upper airways with a obese neck. Sleep study does confirm diagnosis of obstructive sleep apnea with nocturnal hypoxemia. He underwent CPAP titration study and it was quite successful, with pressure of 13 cm. He did need O2 2 L/minute along with that. Now he is using the CPAP machine every night and sleeps good . Code(s): G47.33 - Obstructive sleep apnea (adult) (pediatric) Category: Medical Plan: Commended for good compliance and advised to keep on using the CPAP every night with O2 2 L/minute (4) Chronic respiratory failure with hypoxia: Comment: This gentleman does have chronic hypoxemic respiratory failure and he is on O2 2 L/minute, at night and PRN during the daytime Code(s): J96.11 - Chronic respiratory failure with hypoxia Category: Medical Plan: Continue the same Plan * THIS PATIENT IS ANXIOUS TO HAVE HIP SURGERY SO THAT HE CAN START WALKING AROUND . AND BE MORE ACTIVE HE DOES HAVE MODERATE SEVERE OBSTRUCTIVE AIRWAY DISORDER BUT IT IS WELL CONTROLLED AND STABLE AT THIS TIME . LONG HE IS USING CPAP REGULARLY WITH O2 2 L/MINUTE AT NIGHT, AND LONG HE IS NOT SMOKING AND USING HIS BRONCHODILATORS REGULARLY, I THINK HE CAN SAFELY UNDERGO THE HIP SURGERY. HE REMAINS A HIGH RISK TYPE OF PATIENT FOR ANY MAJOR SURGERY. POSTOPERATIVELY HE WILL NEED TO BE WATCHED CLOSELY AND MAY NEED TREATMENT WITH O2 SUPPLEMENTATION WELL DUONEB UPDRAFTS Q 4-6 HOURS P.R.N. Orders: Orders AMB Spirometry Testing Today J44.9 - Chronic obstructive pulmonary disease, unspecified Coding Level of Care Code Est Pt Level 4 (44363) Diagnoses Pulmonary emphysema, unspecified emphysema type J44.9 Tobacco abuse Z72.0 TA (obstructive sleep apnea) G47.33 Chronic respiratory failure with hypoxia J96.11 CPT Codes Spirometry - CPT: 84009- Spirometry ([id number])
== END 2025-07-28 11:03 | disposition home or self-care (01) ==
LOC: HO.HPS 10:02
PROVIDERS: PCP Internal Medicine; Visit Provider Internal Medicine
DX: J44.9 Chronic obstructive pulmonary disease, unspecified (principal); Z72.0 Tobacco use; G47.33 Obstructive sleep apnea (adult) (pediatric); J96.11 Chronic respiratory failure with hypoxia
CPT/HCPCS: 94010; 99214

== ENCOUNTER → 2025-07-28 10:01 | Outpatient (BNVA) | payer MEDICARE, SELFPAY | PROVIDERS: PCP Internal Medicine; Visit Provider Internal Medicine | DX: J44.9 Chronic obstructive pulmonary disease, unspecified (principal); J96.11 Chronic respiratory failure with hypoxia; G47.33 Obstructive sleep apnea (adult) (pediatric); F17.210 Nicotine dependence, cigarettes, uncomplicated; Z71.6 Tobacco abuse counseling | CPT/HCPCS: 94010; 99212 ==

== ENCOUNTER 2025-08-02 13:52 | Outpatient (REF) | payer MEDICARE, SELFPAY ==
--- OUTSIDE RECORDS SUMMARY | 2025-08-02 16:53 | XMS_ITS | Clinical Summary ---
Author Organization [employer] Address [address] [place] [address] Care Team Providers Care Mandolin Repairer Name Role Phone Unavailable Primary Care [...] - Risk 60-74 years 1-dose series) 2018 Tobacco Screening 09/22/2024 09/22/2023 COVID-19 Vaccine ( season) 2025 09/07/2023, 10/08/2022, 04/10/2022, Additional history exists Influenza Vaccine (#1) 2025 , 08/14/2021, 06/16/2020, [...] DENTAL - HSN FULL (MEDICAID) [facility] [place] [id number] [place] [address]
[2025-08-02 17:06] LABS: Prostate Specific Antigen 2.31 ng/mL (<0.05-4.0)
== END 2025-08-02 13:53 | disposition home or self-care (01) ==
LOC: HO.HMGCLDS 13:52
PROVIDERS: PCP Internal Medicine; Visit Provider Urology
DX: R97.20 Elevated prostate specific antigen [PSA] (principal); Z12.5 Encounter for screening for malignant neoplasm of prostate
CPT/HCPCS: 36415; 84153

== ENCOUNTER 2025-08-16 10:29 | Outpatient (AMB) | payer MEDICARE, SELFPAY ==
--- NOTE | 2025-08-16 10:29 | MHC.OFFVIS ---
Intake Visit Reasons: 6m/PSA Intake Note: Patient is present for 6M/PSA Urology Medication:DUTASTTERIDE,TAMSULOSIN, Antibiotic Allergy:ROSUVASTATIN Blood Thinner:ASPIRIN,APIXABAN Labs done 08/02/25 : PSA 2.31 Optometrist President/Practice Owner Required: No Accompanied by: Self / Same As Patient Allergies divalproex sodium (Depakote) Allergy (Unknown, Verified 09/26/25 11:18) Unknown rosuvastatin Allergy (Unknown, Verified 09/26/25 11:18) SOB finasteride Allergy (Intermediate, Uncoded 09/26/25 11:18) Hives HPI Comments Details: Stas is a pleasant male. He is a patient of Dr. Feldman. He is seen for the following urologic conditions - elevated PSA - lower urinary tract Telemedicine Evaluation 15 min Consultation [employer] Nery Video Six-month follow-up Previously noted Significant drop in PSA indicating rise most likely related to progressive BPH PSA has remained down with combination therapy Continue current therapy Space surveillance interval to 12 month Lower tract symptoms PSA - 05/09 3.5, 06/11 5.0, 04/12 4.9, 11/13 6.4, 02/11 2.4, PSA 08/13 2.3 Current therapy tamsulosin, and dutasteride [facility] Medical History COPD (chronic obstructive pulmonary disease) TA (obstructive sleep apnea) Counseling on substance use and abuse Severe sepsis COPD (chronic obstructive pulmonary disease) Generalized anxiety disorder COPD with acute exacerbation SOB (shortness of breath) Anxiety Smoker Pharyngitis Arthritis Abdominal hernia Numbness Tinea cruris Pes anserinus bursitis of left knee Rib fractures Osteoarthritis of right hip Right hip pain Sinus congestion Overweight (BMI 25.0-29.9) Urgency of micturition Carpal tunnel syndrome Femoral fracture Pulmonary nodule BPH (benign prostatic hyperplasia) Seizure disorder Insomnia Vitamin D deficiency Impaired glucose tolerance Hypercholesterolemia GERD (gastroesophageal reflux disease) Polysubstance abuse Left subclavian artery occlusion Brain aneurysm CVA (cerebral vascular accident) Vocal cord polyp Vitamin B12 deficiency Surgical History History of nasal surgery H/O colonoscopy Stenosis of subclavian bypass History of surgery History of orthopedic surgery History of knee replacement procedure of right knee Family History Father CAD (coronary artery disease) Kidney malignancy Mother Myocardial infarction Brother Prostate cancer Social History Household Members: Other Household Members Other:: roomate Housing: House Housing Other:: mobile home Are you a primary medicare sales representative to a significant other at home: No Do you presently have visiting nurse or other home services: Yes Alcohol intake: current Alcohol intake frequency: a few times a week Alcohol type: beer Comment: 4 drinks last night Patient Tobacco Use Status: Former Tobacco user Tobacco use type: Cigarette Cigarette Packs Per Day: 2 Cigarettes Per Day: 0.25 Years Smoked: 55 e-Cigarette/Vaping Use: Never Used Second Hand Smoke Exposure: No Substance Use Type: Crack/Cocaine service: No Current occupational status: unemployed Cognitive needs: Yes (Cane) Hearing needs: No Vision needs: Yes Review of Systems Const All systems reviewed & are unremarkable except as noted in HPI and below Reports no additional complaints Resp Reports no additional complaints GI Reports no additional complaints Reports as per HPI Musc Reports no additional complaints Physical Exam Telemedicine evaluation Appropriate responses Regular breathing rate and rhythm HEENT Head: Yes normal to inspection Ears: hearing grossly normal bilaterally Eyes General: appearance normal, both eyes and all related structures Neck Neck: Yes normal visual inspection Chest Chest palpation & inspection: normal inspection of the chest Resp Effort & Inspection: normal respiratory effort and able to speak in complete sentences Telehealth Telehealth Telehealth Platform: [facility] Location of provider rendering services: practice address Location of patient: address on file Patient Identification confirmed using: Name, : Yes Telehealth method: video Patient verbally consented to treatment: Yes Patient verbally consented to billing insurance company: Yes Patient informed of any privacy concerns related to visit: Yes Minutes spent on Phone/Video with Pt.: 15 Assessment & Plan Assessment & Plan (1) BPH (benign prostatic hyperplasia): Code(s): N40.0 - Benign prostatic hyperplasia without lower urinary tract symptoms Category: Medical Qualifiers: Lower urinary tract symptom presence: symptoms present Lower urinary tract symptom detail: urinary frequency Qualified Code(s): N40.1 - Benign prostatic hyperplasia with lower urinary tract symptoms; R35.0 - Frequency of micturition (2) PSA elevation: Code(s): R97.20 - Elevated prostate specific antigen [PSA] Category: Medical Plan Twelve month follow-up repeat PSA Orders: Orders Prostate Specific Antigen 12 Months R97.20 - Elevated prostate specific antigen [PSA] Medications: Refilled tamsulosin 0.4 mg PO DAILY 90 caps 3RF 90 days dutasteride 0.5 mg PO DAILY 90 caps 1RF 90 days Patient Instructions: This note is constructed using voice recognition software. While every effort has been made to ensure accuracy urgent care technician errors may have been included. Imaging studies, laboratory and physical exam results were discussed and reviewed in detail. No major barriers to patient understanding were identified. An opportunity to ask questions regarding the treatment plan was provided. All questions were answered. The patient expressed understanding and agreement with the above treatment plan. The patient is aware they should contact our office by phone for worsening of their current condition or the appearance of new urologic symptoms. Compliance is encouraged with any medications and followup testing that is ordered. It is a privilege to participate in the urologic care of your patient. If you have any questions or concerns regarding treatment for the above conditions, or other urologic issues, please do not hesitate to contact me. The office telephone contact is [phone]. Sincerely, Dr Siddharth Boss MD, [facility] - Urology Compassionate Specialist Care for the Genitourinary System Coding Level of Care Code Tele Est Pt Level 3 (10967) Diagnoses Benign prostatic hyperplasia with urinary frequency N40.1; R35.0 Lower urinary tract symptom presence: symptoms present Lower urinary tract symptom detail: urinary frequency PSA elevation R97.20
--- OUTSIDE RECORDS SUMMARY | 2025-08-16 13:02 | XMS_ITS | Clinical Summary ---
Author Organization [employer] Address [address] [facility] [place] [address] Care Team Providers Care Hub Inventory Specialist Name Role Phone Unavailable Primary Care Provider [...] DENTAL - HSN FULL (MEDICAID) [address] [place] [phone] [place] [address]
--- OUTSIDE RECORDS SUMMARY | 2025-08-16 13:02 | XMS_ITS | Encounter Summary ---
Author Organization [facility] Address [address] [place] [address] Care Team Providers Care Lead Neurodiagnostic Technologist Name Role Phone Unavailable Primary Care Provider Unavailabl e Encounter Details Date Type Department Care Team (Late st Contact Info) Description 03/28/2022 Dental Interim Note [facility] [address] [place] [address] Anneliese Moreno, DDS [address] [place] [address] Social History Tobacco Use Types Packs/Day Years [...] Care Team (Late st Contact Info) Description 09/07/2025 11:00 AM EST Office Visit [facility] [address] [place] [phone] Monica Cummings, DDS [address] [place] [address] 02/10/2026 1:40 PM EDT Office Visit [facility] [address] [place] [phone] Jim Linares, [facility] [address] [place] [address] documented as of this encounter Visit Diagnoses Not on filedocumented in this encounter
--- OUTSIDE RECORDS SUMMARY | 2025-08-16 13:03 | XMS_ITS | Clinical Summary ---
Author Organization [facility] Address [address] [place] [address] Care Team Providers Care Maxillofacial Prosthodontist Name Role Phone Unavailable Primary Care Provider [...] daily apply a thin ribbon on toothbrush. Josephine thoroughly once daily for two minutes, preferably [...] Date Diagnosed Date Intracranial aneurysm 05/03/2024 Seizure 05/03/2024 Bursitis of left knee 06/20/2022 Chronic pain 03/26/2022 Encounters Date Type Department Care Team Description 08/08/2025 11:00 AM EDT Interim Notes [facility] [address] [place] [phone] 08/08/2025 10:20 AM EDT Office Visit [facility] [id number] [place] [phone] Monica Cummings DDS 08/08/2025 9:40 AM EDT Office Visit [address] [phone] MilagrosJim vargas, [facility] 06/17/2025 10:00 AM EDT Office Visit [address] [phone] Jim Linares, [facility] 05/16/2025 1:40 PM EDT Office Visit [address] [phone] Monica Cummings DDS from Last 3 Months [...] Sign Reading Time Taken Comments Blood Pressure 153/94 08/08/2025 11:03 AM EDT Pulse 84 08/08/2025 11:03 AM EDT Temperature - - Respiratory Rate - - Oxygen Saturation - - Inhaled Oxygen Concentration - - Weight - - Height - - Body Mass Index - - Plan of Treatment Upcoming Encounters Date Type Department Care Team (Late st Contact Info) Description 09/07/2025 11:00 AM EST Office Visit [facility] [address] [place] [phone] Emiliano Monica Batsheva, DDS [address] [place] [address] 02/10/2026 1:40 PM EDT Office Visit [facility] [address] [place] [phone] Jim Linares, RD [address] [place] [address] Health Maintenance Due Date Last Done Comments [...] Aortic Aneurysm Screening 2023 Falls Prevention 2023 Alcohol and Drug Screen 10/20/2024 Depression Annual Screen 10/20/2024 [id number] ( - season) 2025 Imm-Influenza (#1) 2025 Dental Perio Charting 12/18/2025 12/16/2024 , 02/04/2023, 03/26/2022 Hypertension Screening (#1) 08/08/2026 Dental BW 08/10/2026 08/08/2025, 02/04/2025, 04/01/2024, Additional history exists Dental Examination 08/10/2026 08/08/2025, 0 12/16/2024, 04/01/2024, Additional history exists Dental Prophy 08/10/2026 08/08/2025, 0204/2025, 04/14/2024, Additional history exists Procedures Procedure Name Priority Date/Time Associated Diagnosis Comments 22 F(V) RESIN-BASED COMPOSITE ONE SURFACE ANTERIOR Routine 08/08/2025 10:20 AM EDT Caries CASE PRESENTATION SUBS DTL & EXTENSIVE TX PLN Routine 08/08/2025 10:20 AM EDT Caries PERIODIC ORAL EVALUATION ESTABLISHED PATIENT Routine 08/08/2025 9:40 AM EDT Caries Fractured dental restorationist with loss of material DENTAL CASE MANAGEMENT - MOTIVATIONAL INTV Routine 08/08/2025 9:40 AM EDT Caries Fractured dental restorationist with loss of material PROPHYLAXIS - ADULT Routine 08/08/2025 9 :40 AM EDT Caries Fractured dental restorationist with loss of material BITEWINGS - FOUR RADIOGRAPHIC IMAGES Routine 08/08/2025 9:40 AM EDT Fractured dental restorationist with loss of material Caries CARIES RISK ASSESSMENT & DOC FINDING HIGH RISK Routine 08/08/2025 9:40 AM EDT Caries Fractured dental restorationist with loss of material NUTRITIONAL COUNSELING CONTROL OF DENTAL DISEASE Routine 08/08/2025 9:40 AM EDT Caries Fractured dental restorationist with loss of material ORAL HYGIENE INSTRUCTIONS Routine 08/08/2025 9:40 AM EDT Caries Fractured dental restorationist with loss of material ORAL CANCER SCREENING Routine 08/08/2025 9:40 AM EDT Caries Fractured dental restorationist with loss of material CASE PRESENTATION SUBS DTL & EXTENSIVE TX PLN Routine 08/08/2025 9:40 AM EDT Caries Fractured dental restorationist with loss of material LIMITED ORAL EVALUATION - PROBLEM FOCUSED Routine 06/17/2025 10:00 AM EDT Encounter for screening for dental disorder INTRAORAL - PERIAPICAL FIRST RADIOGRAPHIC IMAGE Routine 06/17/2025 10:00 AM EDT Encounter for screening for dental disorder BITEWING - SINGLE RADIOGRAPHIC IMAGE Routine 06/17/2025 10:00 AM EDT Encounter for screening for dental disorder CASE PRESENTATION SUBS DTL & EXTENSIVE TX PLN Routine 06/17/2025 10:00 AM EDT Encounter for screening for dental disorder CASE PRESENTATION SUBS DTL & EXTENSIVE TX PLN Routine 05/16/2025 1:40 PM EDT Caries 29 B(V) RESIN-BASED COMPOSITE - ONE SURFACE POSTERIOR Routine 05/16/2025 1:40 PM EDT Caries COMP PERIODONTAL EVALUATION - NEW/EST PATIENT Routine 12/16/2024 1:00 PM EST Caries of enamel (incipient) Caries from Last 3 Months or Most Recently Relevant to Health Maintenance Insurance [facility]
== END 2025-08-16 16:44 | disposition home or self-care (01) ==
LOC: HO.HUSH 10:29
PROVIDERS: PCP Internal Medicine; Visit Provider Urology
DX: N40.1 Benign prostatic hyperplasia with lower urinary tract symptoms (principal); R35.0 Frequency of micturition; R97.20 Elevated prostate specific antigen [PSA]
CPT/HCPCS: 99213

== ENCOUNTER 2025-08-22 10:34 | Outpatient (AMB) | payer MEDICARE, SELFPAY ==
--- NOTE | 2025-08-22 10:46 | A.OFFPC_ITS ---
Vital Signs 08/22/25 10:47 Height 5 ft 11 in Weight 212 lb 4.882 oz BMI 29.6 BP 98/56 L Blood Pressure Location Rt brachial Position Sitting Pulse 102 H Pulse Source Pulse Oximeter Temp 97.3 F Temp Source Temporal Artery Scan Pulse Oximetry (%) 92 Oxygen Delivery Method Room Air Intake Visit Reasons: Left femoral head avascular necrosis Accompanied by: Brother Allergies divalproex sodium (Depakote) Allergy (Unknown, Verified 08/22/25 10:51) Unknown rosuvastatin Allergy (Unknown, Verified 08/22/25 10:51) SOB finasteride Allergy (Intermediate, Uncoded 08/22/25 10:51) Hives Tobacco use date assessed: 08/22/25 Fall risk assessment: 1 Fall in past year Last assessed Fall Risk: 08/22/25 Dental Screening Dental Screen Date: 08/22/25 Did you have a dental visit in the last 12 months?: Yes Did you have a dental problem in the last 6 months where you did not have access to dental care?: No Was dental information given to patient?: Patient has dentist HPI Left femoral head avascular necrosis HPI Details stopped smoking 1 month. TA using CPAP Q night. . Orthopedics note read and appreciated since March 2025 and wanted to get cardiology and pulmonary clearance. Pulmonary clearance made and we will get Cardiology evaluation. Patient has done echocardiogram and normal ejection fraction. Patient has stopped smoking and has not done any substance abuse since March Medical History COPD (chronic obstructive pulmonary disease) TA (obstructive sleep apnea) Counseling on substance use and abuse Severe sepsis COPD (chronic obstructive pulmonary disease) Generalized anxiety disorder COPD with acute exacerbation SOB (shortness of breath) Anxiety Smoker Pharyngitis Arthritis Abdominal hernia Numbness Tinea cruris Pes anserinus bursitis of left knee Rib fractures Osteoarthritis of right hip Right hip pain Sinus congestion Overweight (BMI 25.0-29.9) Urgency of micturition Carpal tunnel syndrome Femoral fracture Pulmonary nodule BPH (benign prostatic hyperplasia) Seizure disorder Insomnia Vitamin D deficiency Impaired glucose tolerance Hypercholesterolemia GERD (gastroesophageal reflux disease) Polysubstance abuse Left subclavian artery occlusion Brain aneurysm CVA (cerebral vascular accident) Vocal cord polyp Vitamin B12 deficiency Surgical History History of nasal surgery H/O colonoscopy Stenosis of subclavian bypass History of surgery History of orthopedic surgery History of knee replacement procedure of right knee Family History Father CAD (coronary artery disease) Kidney malignancy Mother Myocardial infarction Brother Prostate cancer Social History Household Members: Other Household Members Other:: roomate Housing: House Housing Other:: mobile home Are you a primary healthcare technician to a significant other at home: No Do you presently have visiting nurse or other home services: Yes 75 years or older and lives alone: No Unable to assess alcohol history related to: Unknown Alcohol intake: current Alcohol intake frequency: a few times a week Alcohol type: beer Comment: 4 drinks last night Patient Tobacco Use Status: Former Tobacco user Tobacco use type: Cigarette Cigarette Packs Per Day: 2 Cigarettes Per Day: 0.25 Years Smoked: 55 Packs Per Year: 110 Packs per year/per ci.66 e-Cigarette/Vaping Use: Never Used Second Hand Smoke Exposure: No Substance Use Type: Crack/Cocaine service: No Current occupational status: unemployed Cognitive needs: Yes (Cane) Hearing needs: No Vision needs: Yes Questionnaire PHQ-9 Over the last 2 weeks, how often have you been bothered by any of the following problems? 1. Little interest or pleasure in doing things: nearly every day 2. Feeling down, depressed, or hopeless: nearly every day 3. Trouble falling or staying asleep, or sleeping too much: nearly every day 4. Feeling tired or having little energy: nearly every day 5. Poor appetite or overeating: nearly every day 6. Feeling bad about yourself - or that you are a failure or have let yourself or your family down: nearly every day 7. Trouble concentrating on things, such as reading the newspaper or watching television: not at all 8. Moving or speaking so slowly that other people could have noticed. Or the opposite - being so fidgety or restless that you have been moving around a lot more than usual: more than half the days 9. Thoughts that you would be better off or of hurting yourself in some way: not at all Total score: 20 Depression Screening Interpretation: Positive Depression Screening Done: Yes Source: Developed by Drs. Basilio Esteves, Zev Israel and colleagues, with an educational teodoro from [employer]. Thrive Questionnaire Date Thrive assessed: 01/04/25 I am a: Patient What is your living situation today?: I have a steady place to live Within the past 12 months, did the food you bought not last and you didn't have the money to get more?: Sometimes True Within the past 12 months, did you worry whether your food would run out before you got money to buy more?: Sometimes True Do you have trouble paying for medicines?: No Do you have trouble getting transportation to medical appointments?: Yes Do you have trouble paying your heating and electricity bill?: No Do you have trouble taking care of your child, family member or friend?: No Do you have trouble with day-to-day activities such as bathing, preparing meals, shopping, managing finances, etc.?: Yes Are you currently unemployed and looking for a job?: No Are you interested in more education?: No Currently or been in a relationship where the following occur: No concerns reported THRIVE Score: 3 AUDIT C Alcohol Use Questionnaire (AUDIT-C) 1. How often do you have a drink containing alcohol?: 4 or more times a week 2. How many drinks containing alcohol do you have on a typical day when you are drinking?: 3 or 4 3. How often do you have six or more drinks on one occasion?: Never Total Score: 5 DANIE-7 AMB Questionnaire DANIE-7 Date DANIE - 7 assessed: 04/08/25 Feeling nervous, anxious, or on edge: 0 = Not at all Not being able to stop or control worryin = Not at all Worrying too much about different things: 0 = Not at all Trouble relaxin = Not at all Being so restless that it is hard to sit still: 0 = Not at all Becoming easily annoyed or irritable: 0 = Not at all Feeling afraid as if something awful might happen: 0 = Not at all Total DANIE-7 score (0-4 normal; 5-9 mild; 10-14 moderate; 15-21 severe): 0 Source: Developed by Gina Cordova Kurt Kroenke and colleagues, with an educational teodoro from [employer]. Physical exam (Primary Care) Vital Signs: Last Vital Signs Temp 97.3 F 08/22/25 10:47 Pulse 102 H 08/22/25 10:47 BP 98/56 L 08/22/25 10:47 Pulse Ox 92 08/22/25 10:47 Oxygen Delivery Method Room Air 08/22/25 10:47 BMI result Body Mass Index 29.6 Tobacco/Smoking Status: Tobacco use Status Tobacco use date assessed 08/22/25 08/22/25 10:53 Patient Tobacco Use Status Former Tobacco user 08/22/25 10:46 Tobacco use type Cigarette 08/22/25 10:46 e-Cigarette/Vaping Use Never Used 08/22/25 10:46 PHQ-9: PHQ-9 Score PHQ-9: Total score 20 08/22/25 11:09 Depression Screening Interpretation: Positive Thrive Assessment: Date of Thrive Assessment Date Thrive assessed 01/04/25 08/22/25 10:46 Currently or been in a relationship where the following occur: No concerns reported Const General: alert; No acute distress Eyes Conjunctivae: conjunctivae normal Resp Auscultation: clear to auscultation bilaterally Cardio Rate: regular rate Rhythm: regular rhythm GI Inspection: Yes normal to inspection Extrem General: Yes normal to inspection and No edema Coding Level of Care Code Est Pt Level 4 (37780) Complex EM visit Add On G2211 Diagnoses Impaired glucose tolerance R73.02 Hypercholesterolemia E78.00 Polysubstance abuse F19.10 Gastroesophageal reflux disease without esophagitis K21.9 Esophagitis presence: without esophagitis Benign prostatic hyperplasia with urinary frequency N40.1; R35.0 Lower urinary tract symptom detail: urinary frequency Lower urinary tract symptom presence: symptoms present Avascular necrosis of left femoral head M87.052 CVA (cerebral vascular accident) I63.9 Pulmonary emphysema, unspecified emphysema type J44.9 TA (obstructive sleep apnea) G47.33 Tobacco abuse Z72.0 Acute on chronic heart failure with preserved ejection fraction (HFpEF) I50.33 Assessment & Plan Assessment & Plan (1) Impaired glucose tolerance: Code(s): R73.02 - Impaired glucose tolerance (oral) Category: Medical Plan: Decrease the amount of carbohydrate intake, pasta, bread, rice and potatoes are all sugar and that is aside from all the sweet stuff, remember that fruits are good but they are Sweet also. (2) Hypercholesterolemia: Code(s): E78.00 - Pure hypercholesterolemia, unspecified Category: Medical Plan: Avoid fried foods, chicken skin, eggs, butter margarine, pastries and meat. Be it pork or beef they have a lot of cholesterol LDL goal of less than 70 and triglyceride of less than 150 with a history of CVA strongly advised to stop (3) Polysubstance abuse: Comment: Chronic use of Alcohol and cocaine, claims that he has quit at present. Code(s): F19.10 - Other psychoactive substance abuse, uncomplicated Category: Medical (4) GERD (gastroesophageal reflux disease): Code(s): K21.9 - Gastro-esophageal reflux disease without esophagitis Category: Medical Qualifiers: Esophagitis presence: without esophagitis Qualified Code(s): K21.9 - Gastro-esophageal reflux disease without esophagitis Plan: Avoid the foods that causes that usually spicy foods, tomato products, juices, coffee, soda and foods that your sensitive to. After eating do not lie down, allow 3-4 hours before in lie down. And keep the head of bed above 30 degrees to avoid the acid from going up. (5) BPH (benign prostatic hyperplasia): Code(s): N40.0 - Benign prostatic hyperplasia without lower urinary tract symptoms Category: Medical Qualifiers: Lower urinary tract symptom detail: urinary frequency Lower urinary tr act symptom presence: symptoms present Qualified Code(s): N40.1 - Benign prostatic hyperplasia with lower urinary tract symptoms; R35.0 - Frequency of micturition Plan: Patient continue with follow-up with Urology and is on tamsulosin, dutasteride (6) Avascular necrosis of left femoral head: Comment: PATIENT IS BEING FOLLOWED BY ORTHOPEDIC SERVICE, AND AWAITING. TO UNDERGO LEFT HIP SURGERY THE SURGERY WAS POSTPONED BECAUSE OF ALL HIS MEDICAL/PULMONARY PROBLEMS. AT THIS TIME HIS PULMONARY STATUS SEEMS TO BE STABLE. SLEEP APNEA WILL BE TREATED WITH CPAP AND O2 AT NIGHT. WE WILL WATCH HIS COMPLIANCE CLOSELY Code(s): M87.052 - Idiopathic aseptic necrosis of left femur Category: Medical Plan: Patient is following up with orthopedics. Has had pulmonary clearance as long as the medications are being taken. And stopping smoking. (7) CVA (cerebral vascular accident): Code(s): I63.9 - Cerebral infarction, unspecified Category: Medical Plan: Control the cholesterol, weight, blood pressure, (8) COPD (chronic obstructive pulmonary disease): Comment: Patient does have chronic obstructive pulmonary disease, perpetuated BY continued smoking, and recurrent respiratory infection. At present seems to be relatively stable. Since his last visit he has been very stable. Has cut down smoking to only 1-2 cigarettes a day He has very minimal cough, sore throat and laryngitis almost resolved. * SPIROMETRY RESULTS ARE CONSISTENT WITH SEVERE OBSTRUCTIVE AIRWAY DISORDER, SLIGHTLY WORSE COMPARED TO THE RESULTS IN SEPTEMBER 2024. Code(s): J44.9 - Chronic obstructive pulmonary disease, unspecified Category: Medical Plan: Continue with the inhalers as instructed by Pulmonary (9) TA (obstructive sleep apnea): Comment: Patient has crowded upper airways with a obese neck. Sleep study does confirm diagnosis of obstructive sleep apnea with nocturnal hypoxemia. He underwent CPAP titration study and it was quite successful, with pressure of 13 cm. He did need O2 2 L/minute along with that. Now he is using the CPAP machine every night and sleeps good . Code(s): G47.33 - Obstructive sleep apnea (adult) (pediatric) Category: Medical Plan: Continue to use the CPAP more than 4 hours a night and benefits from this (10) Tobacco abuse: Comment: Patient claims that he has quit smoking since his recent hospitalization. He is no he 1 smoking 1 or 2 cigarettes a day. Code(s): Z72.0 - Tobacco use Category: Medical Plan: Patient is strongly advised to stop smoking! (11) Acute on chronic heart failure with preserved ejection fraction (HFpEF): Code(s): I50.33 - Acute on chronic diastolic (congestive) heart failure Category: Medical Plan History of Present Illness The patient is a 65-year-old overweight male with multiple chronic medical problems including GERD, hypercholesterolemia, BPH, and a history of a CVA and left subclavian artery occlusion status post bypass in May 2016. He also has a history of congestive heart failure, obstructive sleep apnea, alcohol abuse, and tubular adenoma of the colon. The patient has avascular necrosis of the left femoral head and is awaiting left hip surgery. He reports he cannot sleep because of his leg pain. Orthopedics noted in March that for surgical clearance, the patient would need to be in remission from alcohol use and be drug-free for at least 12 months. For his obstructive sleep apnea, the patient uses a CPAP machine every night and reports it helps, as he no longer wakes up gasping for air. He also uses oxygen at night and takes Incruse and albuterol as prescribed by his outside b2b sales. The patient was a smoker but reports having quit about a month ago. His BPH is managed with tamsulosin and dutasteride, and he follows up with urology, with his PSA level having decreased. His last colonoscopy was in December 2024, which found a tubular adenoma. Recent lab work from March showed mild anemia with a hemoglobin of 13.5, and his renal function was stable. His blood sugar was elevated at 131, and a hemoglobin A1c in April was 5.9. An echocardiogram in March showed good heart function. The patient also has a history of hearing loss and seizures, for which he is awaiting an appointment. Health Maintenance - Colon Cancer Screening: Last colonoscopy noted as December 2024. - Prostate Cancer Screening: Patient follows with urology for PSA monitoring, which has been decreasing. - Vaccinations: Patient reports receiving the flu and COVID vaccines. - Smoking Cessation: Patient reports quitting smoking about a month ago and has been strongly advised to continue abstinence. - Alcohol Cessation: Strongly advised to stop alcohol use. - Cardiovascular Risk Reduction: LDL goal is <70 mg/dL given history of CVA, and triglyceride goal is <150 mg/dL. Social History - Substance Use: The patient is a former smoker, having quit about one month ago. - Alcohol Use: The patient has a history of alcohol abuse and reports recent use to manage pain. - Pets: The patient owns a 50-pound [email or web address] puppy. Review of Systems - Respiratory: Denies waking up gasping for air. - Musculoskeletal: Reports severe left leg pain that inhibits sleep and ability to bear weight. - Neurological: Reports hearing loss and a history of seizures. Physical Exam - General: Appears as an overweight male. - Respiratory: Lungs were auscultated. - Integumentary: Bruise noted on the torso. Results - Labs (March): Hemoglobin 13.5 g/dL and hematocrit 38.5% (mild anemia); electrolytes good; renal function stable; blood sugar 131 mg/dL. - Labs (April): Hemoglobin A1c 5.9%. - Labs: PSA has come down. - Labs (August 2024): Last cholesterol panel was performed. - Imaging (March): Echocardiogram showed good heart power. Plan Patient was informed and verbally consented to the use of an ambient scribe for clinic note documentation during this visit. 1. Avascular Necrosis Of The Left Femoral Head / Chronic Pain The patient requires preoperative clearance for his planned left hip surgery. He has received pulmonary clearance, contingent on medication adherence and smoking cessation. A referral will be made to Cardiology for further clearance. For pain management, his tramadol will be increased to twice daily. He was advised that the goal is to reduce pain, not eliminate it, and that he should not use alcohol for pain relief. 2. Obstructive Sleep Apnea And Related Conditions The patient will continue with his pulmonary follow-up and was advised to continue his inhalers as instructed. He is to continue using his CPAP for more than 4 hours a night and use supplemental oxygen at night. 3. Tobacco Use Disorder / Alcohol Abuse The patient was strongly advised to continue smoking cessation, as he reports having quit one month ago. He was also strongly advised to stop all alcohol use, which was a requirement for surgical clearance noted by orthopedics in March. 4. Hypercholesterolemia The treatment goal for LDL cholesterol is less than 70 mg/dL due to his history of CVA, and triglycerides should be less than 150 mg/dL. Management for hypercholesterolemia will continue. 5. Benign Prostatic Hyperplasia The patient will continue his current medications, tamsulosin and dutasteride, and maintain follow-up with urology. Discussion Notes I reviewed the plan for the patient's preoperative clearance for his upcoming left hip surgery. I informed him that his pulmonary clearance is adequate, provided he continues his inhalers and CPAP and remains smoke-free. I explained the need for cardiology clearance and that a referral would be made for him to be seen. We discussed the orthopedic surgeon's requirement of being alcohol-free for surgical consideration, and I strongly advised him to stop drinking, also noting the risk of liver damage. Regarding his leg pain, I acknowledged his discomfort and agreed to increase his tramadol dose to twice a day. I set the expectation that the medication is meant to help manage the pain, not eliminate it completely. I have sent the updated pr escription for tramadol to his pharmacy. Patient Instructions - Continue to not smoke. - Stop drinking alcohol. - An appointment will be made for you to see a heart doctor (automotive electrician helper) to get clearance for your hip surgery. - Continue using your CPAP machine every night for more than 4 hours. - Continue taking your inhalers (Incruse, albuterol) as prescribed by your lung specialist. - You may now take your tramadol for pain twice a day. - Continue your other medications as prescribed, including those for your prostate (tamsulosin, dutasteride). - You will check out at the front end developer designer to schedule your cardiology appointment. Orders: Referrals Cardiology Referral I50.33 - Acute on chronic diastolic (congestive) heart failure Medications: Refilled tramadol 50 mg PO BEDTIME 60 tabs 1RF M87.052 - Idiopathic aseptic necrosis of left femur
[2025-08-22 10:47] VITALS: BP 98/56; PULSE 102; TEMP 36.3; O2SAT 92; BMI 29.6
--- OUTSIDE RECORDS SUMMARY | 2025-08-22 12:52 | XMS_ITS | Clinical Summary ---
Author Organization [employer] Address [address] [place] [address] Care Team Providers Care Mail Reader Name Role Phone Unavailable Primary Care Provider [...] DENTAL - HSN FULL (MEDICAID) DEREK [place]ASER [phone] [place] [address]
--- OUTSIDE RECORDS SUMMARY | 2025-08-22 12:52 | XMS_ITS | Clinical Summary ---
Author Organization [facility] Address [address] [place] [address] Care Team Providers Care Acute Care Registered Nurse Name Role Phone Unavailable Primary Care Provider [...] daily apply a thin ribbon on toothbrush. Marcell thoroughly once daily for two minutes, preferably [...] Description 08/08/2025 11:00 AM EDT Interim Notes [facility] [address] [place] [phone] 08/08/2025 10:20 AM EDT Office Visit [id number] [place] [phone] Monica Cummings DDS 08/08/2025 9:40 AM EDT Office Visit [address] [phone] 06/17/2025 10:00 AM EDT Office Visit [address] [phone] Jim Linares, [facility] from Last 3 Months Social History Tobacco [...] Description 09/07/2025 11:00 AM EST Office Visit [address] [phone] Monica Cummings DD [address] [place] [address] 02/10/2026 1:40 PM EDT Office Visit [facility] [address] [place] [phone] Jim Linares, RD [address] [place] [address] Health Maintenance Due Date Last Done Comments [...] Drug Screen 10/20/2024 Depression Annual Screen 10/20/2024 [id number] ( - season) 2025 Imm-Influenza (#1) 2025 Dental Perio Charting 12/18/2025 12/16/2024 , 02/04/2023, 03/26/2022 Hypertension Screening (#1) 08/08/2026 Dental BW 08/10/2026 08/08/2025, 11/21, 04/01/2024, Additional history exists Dental Examination 08/10/2026 08/08/2025, 0 12/16/2024, 04/01/2024, Additional history exists Dental Prophy 08/10/2026 08/08/2025, 11/21, 04/14/2024, Additional history exists Procedures Procedure Name Priority Date/Time Associated Diagnosis Comments 22 F(V) RESIN-BASED COMPOSITE ONE SURFACE ANTERIOR Routine 08/08/2025 10:20 AM EDT Caries CASE PRESENTATION SUBS DTL & EXTENSIVE TX PLN Routine 08/08/2025 10:20 AM EDT Caries PERIODIC ORAL EVALUATION ESTABLISHED PATIENT Routine 08/08/2025 9:40 AM EDT Caries Fractured dental gnosticism with loss of material DENTAL CASE MANAGEMENT - MOTIVATIONAL INTV Routine 08/08/2025 9:40 AM EDT Caries Fractured dental gnosticism with loss of material PROPHYLAXIS - ADULT Routine 08/08/2025 9 :40 AM EDT Caries Fractured dental gnosticism with loss of material BITEWINGS - FOUR RADIOGRAPHIC IMAGES Routine 08/08/2025 9:40 AM EDT Fractured dental gnosticism with loss of material Caries CARIES RISK ASSESSMENT & DOC FINDING HIGH RISK Routine 08/08/2025 9:40 AM EDT Caries Fractured dental gnosticism with loss of material NUTRITIONAL COUNSELING CONTROL OF DENTAL DISEASE Routine 08/08/2025 9:40 AM EDT Caries Fractured dental gnosticism with loss of material ORAL HYGIENE INSTRUCTIONS Routine 08/08/2025 9:40 AM EDT Caries Fractured dental gnosticism with loss of material ORAL CANCER SCREENING Routine 08/08/2025 9:40 AM EDT Caries Fractured dental gnosticism with loss of material CASE PRESENTATION SUBS DTL & EXTENSIVE TX PLN Routine 08/08/2025 9:40 AM EDT Caries Fractured dental gnosticism with loss of material LIMITED ORAL EVALUATION [...] EDT Encounter for screening for dental disorder COMP PERIODONTAL EVALUATION - NEW/EST PATIENT Routine 12/16/2024 1:00 PM EST Caries of enamel (incipient) Caries from Last 3 Months or Most Recently Relevant to Health Maintenance Insurance [employer] SAF[employer]Y NET DENTAL
--- OUTSIDE RECORDS SUMMARY | 2025-08-22 12:52 | XMS_ITS | Encounter Summary ---
Author Organization [facility] Address [address] [place] [address] Care Team Providers Care Computer Applications Engineer Name Role Phone Unavailable Primary Care Provider Unavailabl e Encounter Details Date Type Department Care Team (Late st Contact Info) Description 03/28/2022 Dental Interim Note [facility] [address] [place] [address] Anneliese Moreno, DDS [address] [place] [address] Social History Tobacco Use Types Packs/Day Years [...] Description 09/07/2025 11:00 AM EST Office Visit [facility] [address] [place] [phone] Monica Cummings, DDS [address] [place] [address] 02/10/2026 1:40 PM EDT Office Visit [facility] [address] [place] [phone] Jim Linares, [address] [place] [address] documented as of this encounter Visit Diagnoses Not on filedocumented in this encounter
== END 2025-08-22 11:23 | disposition home or self-care (01) ==
LOC: HO.HMCH 10:35
PROVIDERS: PCP Internal Medicine; Visit Provider Internal Medicine
DX: M87.052 Idiopathic aseptic necrosis of left femur (principal); F19.10 Other psychoactive substance abuse, uncomplicated; I63.9 Cerebral infarction, unspecified; J44.9 Chronic obstructive pulmonary disease, unspecified; I50.33 Acute on chronic diastolic (congestive) heart failure; R73.02 Impaired glucose tolerance (oral); E78.00 Pure hypercholesterolemia, unspecified; K21.9 Gastro-esophageal reflux disease without esophagitis; N40.1 Benign prostatic hyperplasia with lower urinary tract symptoms; R35.0 Frequency of micturition; G47.33 Obstructive sleep apnea (adult) (pediatric); Z72.0 Tobacco use

== ENCOUNTER → 2025-08-22 10:34 | Outpatient (BNVA) | payer MEDICARE, OTHER, SELFPAY | PROVIDERS: PCP Internal Medicine; Visit Provider Internal Medicine | DX: G47.33 Obstructive sleep apnea (adult) (pediatric) (principal); R73.02 Impaired glucose tolerance (oral); F19.10 Other psychoactive substance abuse, uncomplicated; K21.9 Gastro-esophageal reflux disease without esophagitis; N40.1 Benign prostatic hyperplasia with lower urinary tract symptoms; R35.0 Frequency of micturition; M87.052 Idiopathic aseptic necrosis of left femur; J44.9 Chronic obstructive pulmonary disease, unspecified; I50.33 Acute on chronic diastolic (congestive) heart failure; E78.00 Pure hypercholesterolemia, unspecified; Z99.89 Dependence on other enabling machines and devices; Z87.891 Personal history of nicotine dependence; Z86.73 Personal history of transient ischemic attack (TIA), and cerebral infarction without residual deficits | CPT/HCPCS: 96127; 99212 ==

== ENCOUNTER 2025-09-26 10:55 | Outpatient (AMB) | payer MEDICARE, SELFPAY ==
[2025-09-26 11:01] VITALS: BP 140/60; PULSE 94; O2SAT 94
--- NOTE | 2025-09-26 11:01 | A.OFFVIS_ITS ---
Vital Signs 09/26/25 11:01 Height 5 ft 11 in BP 140/60 H Blood Pressure Location Lt brachial Position Sitting Pulse 94 Pulse Source Pulse Oximeter Pulse Oximetry (%) 94 Oxygen Delivery Method Room Air Intake Visit Reasons: COPD Intake Note: pt is here for follow up and states he is using cpap nightly, and he is feeling well, just wants to get his hip done, but he must stop smoking and drinking to get this done. Divider Operator Required: No Allergies divalproex sodium (Depakote) Allergy (Unknown, Verified 09/26/25 11:18) Unknown rosuvastatin Allergy (Unknown, Verified 09/26/25 11:18) SOB finasteride Allergy (Intermediate, Uncoded 09/26/25 11:18) Hives Medication List - Last Reconciled 09/26/25 by Rey Oneil MD [shower chair As directed] acetaminophen 650 mg PO Q4H PRN albuterol sulfate 2.5 mg (3 mL) inhalation QID PRN 30 days albuterol sulfate 90 mcg/actuation 2 puffs inhalation Q4H PRN alprazolam 0.25 mg PO BEDTIME PRN amoxicillin 2,000 mg (4 x 500 mg) PO ONCE apixaban (Eliquis) 2.5 mg PO BID aspirin 81 mg PO DAILY atorvastatin 80 mg PO BEDTIME bupropion HCl SR (Wellbutrin SR) 150 mg PO BID cetirizine (Zyrtec) 10 mg PO DAILY PRN cyanocobalamin (vitamin B-12) 1,000 mcg PO DAILY dutasteride 0.5 mg PO DAILY 90 days fluticasone propionate 50 mcg/actuation 2 sprays intranasal DAILY furosemide 20 mg PO DAILY 30 days gabapentin 600 mg PO TID 30 days ipratropium-albuterol 0.5 mg-3 mg(2.5 mg base)/3 mL 3 mL inhalation Q4-6H PRN 30 days lidocaine HCl 2% 1 appl mucous membrane BID [id number] mcg (Centrum Silver Ultra Men's) 1 tab PO DAILY nicotine (polacrilex) 2 mg buccal Q2H PRN omeprazole 20 mg PO BID@0630,1630 [power wheelchair As directed] tamsulosin 0.4 mg PO DAILY 90 days tizanidine 4 mg PO BID PRN tramadol 50 mg PO BID umeclidinium 62.5 mcg/actuation (Incruse Ellipta) 1 inh PO DAILY [WALKER As directed] Do you need a note to return to daycare/school/sports/work: No HPI HPI COPD: Details: 65 YEARS OLD GENTLEMAN IS HERE FOR FOLLOW-UP AFTER 2 MONTHS. HE HAS NOT UNDERGONE HIP SURGERY AND HE STILL HAS DIFFICULTY IN AMBULATING SO HE COMES IN THE WHEELCHAIR PUSHED BY HIS BROTHER. HE CLAIMS THAT HE IS NOT SMOKING ANYMORE. HE STILL HAS INTERMITTENT COUGH WITH FEELING OF CHEST CONGESTION, BUT IT IS BETTER WITH THE CURRENT MEDICAL REGIMEN. HE IS DRINKING ONLY SMALL AMOUNTS A FEW NIGHTS PER WEEK., TRYING TO QUIT COMPLETELY. FOR HIS TA HE USES CPAP VERY REGULARLY EVERY NIGHT AND SLEEPS GOOD, [facility] Medical History COPD (chronic obstructive pulmonary disease) TA (obstructive sleep apnea) Counseling on substance use and abuse Severe sepsis COPD (chronic obstructive pulmonary disease) Generalized anxiety disorder COPD with acute exacerbation SOB (shortness of breath) Anxiety Smoker Pharyngitis Arthritis Abdominal hernia Numbness Tinea cruris Pes anserinus bursitis of left knee Rib fractures Osteoarthritis of right hip Right hip pain Sinus congestion Overweight (BMI 25.0-29.9) Urgency of micturition Carpal tunnel syndrome Femoral fracture Pulmonary nodule BPH (benign prostatic hyperplasia) Seizure disorder Insomnia Vitamin D deficiency Impaired glucose tolerance Hypercholesterolemia GERD (gastroesophageal reflux disease) Polysubstance abuse Left subclavian artery occlusion Brain aneurysm CVA (cerebral vascular accident) Vocal cord polyp Vitamin B12 deficiency Surgical History History of nasal surgery H/O colonoscopy Stenosis of subclavian bypass History of surgery History of orthopedic surgery History of knee replacement procedure of right knee Family History Father CAD (coronary artery disease) Kidney malignancy Mother Myocardial infarction Brother Prostate cancer Social History Household Members: Other Household Members Other:: roomate Housing: House Housing Other:: mobile home Are you a primary respite care provider to a significant other at home: No Do you presently have visiting nurse or other home services: Yes 75 years or older and lives alone: No Alcohol intake: current Alcohol intake frequency: a few times a week Alcohol type: beer Comment: 4 drinks last night Patient Tobacco Use Status: Former Tobacco user Tobacco use type: Cigarette Cigarette Packs Per Day: 2 Cigarettes Per Day: 0.25 Years Smoked: 55 e-Cigarette/Vaping Use: Never Used Second Hand Smoke Exposure: No Substance Use Type: Crack/Cocaine service: No Current occupational status: unemployed Cognitive needs: Yes (Cane) Hearing needs: No Vision needs: Yes Review of Systems Const All systems reviewed & are unremarkable except as noted in HPI and below Eyes Reports no additional complaints ENT Reports no additional complaints Card Denies chest pain, Denies irregular heart rhythm and Denies leg edema Resp Reports as per HPI GI Reports constipation and Reports heartburn Reports no additional complaints Musc Reports arthralgias (HIPS) Skin/Breast Reports system reviewed and no additional complaints, except as documented Neuro Reports no additional complaints Psych Reports no additional complaints Endo Reports no additional complaints Sarkis/Lymph Reports no additional complaints Physical Exam Vital Signs: Last Vital Signs Pulse 94 09/26/25 11:01 BP 140/60 H 09/26/25 11:01 Pulse Ox 94 09/26/25 11:01 Oxygen Delivery Method Room Air 09/26/25 11:01 Const General: comfortable, no acute distress, alert and awake Orientation/consciousness: patient oriented x3 HEENT Head: Yes normal to inspection General nose exam: No nasal polyps present and No nasal discharge present Face and sinus: Yes sinuses nontender Mouth: oropharynx normal (ON THIS VISIT I DO NOT SEE ANY ERYTHEMA OR SWELLING OR ULCERS IN HIS MOUTH.) Throat: Yes posterior oropharynx normal Eyes General: appearance normal, both eyes and all related structures Neck Other: SCAR ON THE LEFT SIDE FROM PREVIOUS CAROTID ENDARTERECTOMIES RECENT REVISION OF THE SURGERY. Neck: Yes normal visual inspection, Yes no lymphadenopathy, Yes trachea midline and Yes no JVD Thyroid: Thyroid normal Chest Chest palpation & inspection: normal inspection of the chest (HIS SURGICAL SCAR IN THE LEFT PECTORAL AREA FROM RECENT VASCULAR SURGERY), normal palpation of entire chest wall and tenderness (Over the left mid chest, but no crepitus ) Resp Other: PERCUSSION NOTE IS RESONANT, BREATH SOUNDS ARE DISTANT AND ESPECIALLY DECREASED OVER THE BASILAR AREAS NO CREPITATIONS OR WHEEZES ARE HEARD TODAY . Cardio Palpation: normal PMI Rate: regular rate Rhythm: regular rhythm Heart sounds: no gallops and no murmurs GI Palpation (GI): Soft to palpation, nontender, No hepatosplenomegaly present and no masses Auscultation: normal bowel sounds Back/Spine/Pelvis Thoracic/Lumbar Spine: thoracic and lumbar spine normal to inspection Skin General skin exam: no rashes or lesions noted Neuro General: patient oriented x3 and no focal motor deficits Cranial nerves: Yes CN's II-XII intact bilaterally Extrem Other: He has the discomfort over the left hip, . Especially on standing and walking Today he is non ambulatory and comes to the office in a scooter. General: Yes normal to inspection, Yes no clubbing, cyanosis or edema and Yes no calf tenderness Psych Appearance: grossly normal and well kempt Speech and movement: Normal speech and movement present Results Reviewed Results Reviewed: COMPLIANCE REPORT FOR THE LAST 30 NIGHTS IS REVIEWED THIS AMAZING THAT HE USES 30/30 NIGHTS, 100% AND AVERAGE USAGE PER NIGHT GOES UP TO 11 HOURS 9 MINUTES. THIS ALSO MEANS THAT HE SPENDS LOT OF TIME IN THE BED. THERE IS SOME AIR LEAK HE KNOWS THAT THE MASK SLIPS TO THE SIDE DURING HIS SLEEP. BUT RESIDUAL AHI IS ONLY 1.3 WHICH IS GOOD Assessment & Plan Assessment & Plan (1) COPD (chronic obstructive pulmonary disease): Comment: Patient does have chronic obstructive pulmonary disease, perpetuated by continued smoking, and recurrent respiratory infection. At present seems to be relatively stable. Since his last visit he has been very stable. Claims that he does not smoke anymore. He has very minimal cough, sore throat and laryngitis almost resolved. Code(s): J44.9 - Chronic obstructive pulmonary disease, unspecified Category: Medical Plan: Commended for not smoking, Continue to use Incruse Ellipta 1 inhalation daily. Ipratropium-albuterol solution in the nebulizer Q 6 hours while awake. Albuterol HFA 2 puffs Q 6 hours p.r.n. during the daytime when outdoors. (2) Chronic respiratory failure with hypoxia: Comment: This gentleman does have chronic hypoxemic respiratory failure and he is on O2 2 L/minute, at night and PRN during the daytime Code(s): J96.11 - Chronic respiratory failure with hypoxia Category: Medical Plan: Continue to use O2 2 L/minute along with the CPAP. Use O2 2 L/minute PRN for any respiratory distress, during the daytime. (3) TA (obstructive sleep apnea): Comment: Patient has crowded upper airways with an obese neck. Sleep study does confirm diagnosis of obstructive sleep apnea with nocturnal hypoxemia. He underwent CPAP titration study and it was quite successful, with pressure of 13 cm. He did need O2 2 L/minute along with that. Now he is using the CPAP machine every night and sleeps good . His compliance is excellent . He is definitely benefitting from the use of CPAP. Code(s): G47.33 - Obstructive sleep apnea (adult) (pediatric) Category: Medical Plan: Commended. for good compliance Advised to keep on using the CPAP every night, along with O2 2 L/minute. (4) Tobacco abuse: Comment: Patient claims that he has quit smoking since his recent hospitalization. He was smoking 1 or 2 cigarettes a day. Today in front of his brother he is saying that he does not smoke at all. Code(s): Z72.0 - Tobacco use Category: Medical Plan: Commended for having quit smoking completely and urged not to go back to even minimal smoking. Coding Level of Care Code Est Pt Level 3 (00334) Diagnoses Pulmonary emphysema, unspecified emphysema type J44.9 Chronic respiratory failure with hypoxia J96.11 TA (obstructive sleep apnea) G47.33 Tobacco abuse Z72.0
== END 2025-09-26 11:15 | disposition home or self-care (01) ==
LOC: HO.HPS 10:56
PROVIDERS: PCP Internal Medicine; Visit Provider Internal Medicine
DX: J44.9 Chronic obstructive pulmonary disease, unspecified (principal); J96.11 Chronic respiratory failure with hypoxia; G47.33 Obstructive sleep apnea (adult) (pediatric); Z72.0 Tobacco use
CPT/HCPCS: 99213

== ENCOUNTER → 2025-09-26 10:55 | Outpatient (BNVA) | payer MEDICARE, OTHER, SELFPAY | PROVIDERS: PCP Internal Medicine; Visit Provider Internal Medicine | DX: J96.11 Chronic respiratory failure with hypoxia (principal); J44.9 Chronic obstructive pulmonary disease, unspecified; R05.9 Cough, unspecified; G47.33 Obstructive sleep apnea (adult) (pediatric); G47.36 Sleep related hypoventilation in conditions classified elsewhere; F17.210 Nicotine dependence, cigarettes, uncomplicated; Z99.89 Dependence on other enabling machines and devices; Z79.899 Other long term (current) drug therapy | CPT/HCPCS: 99212 ==

== ENCOUNTER → 2025-09-29 12:24 | Outpatient (REF) | payer MEDICARE, OTHER, SELFPAY ==
--- NOTE | 2025-09-29 12:28 | CA_ITS ---
Transthoracic Echocardiogram Patient (Last, First, Middle): Stas Koenig C Gender: Male Date of : 1960 Age: 65 Procedure Date: 09/29/2025 Procedure Type: Transthoracic Echocardiogram Location: OP Height: 172.72 cm Weight: 92.99 kg BSA: 2.07 m2 Heart Rate: 97 bpm BP: 140 / 60 mmHg Cutter Grind Tool Technician: SB Referring MD: Zuri Feldman MD Gunner Mate: Julius Rodrigues MD Symptoms: I50.33 - Acute on chronic diastolic (congestive) heart failure Study Quality: Fair ECG Rhythm: Sinus Conclusions: - 1. Technically limited study 2. Normal LV ejection fraction of 65-70% with impaired relaxation filling pattern 3. Limited visualization of cardiac valves with cardiac valvular Dopplers within normal limits Findings Procedure Information Contrast agent, definity, is being given per protocol without apparent complications. The quality of the study was technically difficult. The study quality is limited by patients body habitus and lung artifact. Left Ventricle The visually estimated ejection fraction is between 65-70%. Regional wall motion abnormalities can not be excluded due to suboptimal endocardial definition. Spectral Doppler is indicative of an impaired relaxation filling pattern. Right Ventricle The right ventricle was not well visualized. Atria The left atrium is normal in size. Interatrial shunt cannot be excluded. The right atrium was not well visualized. Aortic Valve The aortic valve was not well visualized. There is no aortic valve stenosis. There is no aortic valve regurgitation. Mitral Valve The mitral valve was not well visualized. There is trace mitral valve regurgitation. There is no mitral valve stenosis. Pulmonic Valve The pulmonic valve was not well visualized. Tricuspid Valve The tricuspid valve was not well visualized. Tricuspid regurgitation envelope is inadequate for calculation of right ventricular systolic pressure. Great Vessels The aorta was not well visualized. The pulmonary artery was not well visualized. Venous The inferior vena cava is normal in size and collapses greater than 50% with inspiration. Pericardium/Pleural The pericardium was not well visualized. Measurements 2D Linear Measurements IVSd: 0.77 0.6-0.9/0.6-1.0 cm LVIDd: 5.05 3.9-5.3/4.2-5.9 cm LVIDd Index: 2.44 2.4-3.2/2.2-3.1 cm/m2 LVIDs: 2.87 2.0-3.6 cm LVPWd: 0.89 0.7-1.1 cm LA Diam: 3.60 2.7-3.8/3.0-4.0 cm LAIDs Index: 1.74 1.5-2.3 cm/m2 LV Mass: 179.84 67-162/88-224 g LV Mass Index: 86.88 43-95/49-115 g/m2 LVOT Diam: 2.20 3.0+(-)1.3 cm 2D Systolic Function EF 4C: 75.90 >55% EF 2C: 55.70 >55% EF BiP: 66.90 >55% Mitral Valve MV Pk E: 0.45 MV PK A: 1.00 MV Decel Time: 203.00 E/A: 0.50 E'Lateral: 7.18 E'Medial: 3.59 E/E' Med: 12.60 E/E' Lat: 6.30 PHT: 60.00 MVA PHT: 3.67 Decel Osborne: 2.23 Aortic Valve AoV Pk Leonardo: 0.91 AoV Pk Grad: 3.00 JOSE ANTONIO: 3.66 LVOT LVOT Pk Leonardo: 0.88 LVOT Mn Leonardo: 0.54 LVOT VTI: 0.15 LVOT Pk Grad: 3.00 LVOT Mn Grad: 2.00 LVOT Diam: 2.20 LVOT Area: 3.80 Diastolic Function MV Pk E: 0.45 MV Pk A: 1.00 E/A: 0.50 E'Medial: 3.59 E/E' Med: 12.60 E' Laterial: 7.18 E/E' Lat: 6.30 Right Ventricle TAPSE (mm): 17.80 TVS' Leonardo: 10.30 Tricuspid Valve RA Press: 3.00 Great Vessels Aorta Sinus of Valsalva: 3.50 2.0-3.5 cm Ao Arch: 2.50 Pulmonary Valve PV Pk Leonardo: 0.86 Peak PV Grad: 3.00 Updated in Other Vendor System with Status of Final Julius Rodrigues MD electronically signed on 09/30/2025 4:44:11 PM with status of Final
== END ==
LOC: HO.CARD 12:24
PROVIDERS: PCP Internal Medicine; Visit Provider Internal Medicine
DX: I50.33 Acute on chronic diastolic (congestive) heart failure (principal)
CPT/HCPCS: 93306; Q9957

== ENCOUNTER → 2025-09-29 12:28 | Outpatient (BNV) | payer MEDICARE, MEDICAID, SELFPAY | PROVIDERS: PCP Internal Medicine; Visit Provider Internal Medicine Cardiovascular Disease | DX: I50.33 Acute on chronic diastolic (congestive) heart failure (principal) | CPT/HCPCS: 93306 ==